=== PATIENT | male | born 1985 | race Two or more races ===

== ENCOUNTER 2020-06-25 16:53 | Emergency (ER) | payer MEDICAID, SELFPAY ==
[2020-06-25] VITALS (8 sets, daily range): BP systolic 68–143; BP diastolic 41–101; PULSE 56–121; RESP 12–16; TEMP 36.7–37.3; O2SAT 90–95; BMI 32.5
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
--- NOTE | 2020-06-25 18:14 | ECG_ITS ---
Test Reason : OVERDOSE Blood Pressure : / mmHG Vent. Rate : 060 BPM Atrial Rate : 060 BPM P-R Int : 168 ms QRS Dur : 090 ms QT Int : 466 ms P-R-T Axes : 037 046 030 degrees QTc Int : 466 ms Normal sinus rhythm Normal ECG When compared with ECG of 22-JAN-2020 08:19, QT has lengthened Referred By: Rocky Alberts Electronically Signed By:Jesse Sloan
[2020-06-25 19:34] LABS: COVID-19 Test Negative (Negative)
[2020-06-25 21:18] LABS: MANUAL DIFF FLAG NO
[2020-06-25 21:19] LABS: Basophils Percent Auto 0.1 % (0-2); Eosinophils Absolute Auto 0.1 X10*3/uL (0.0-0.4); Eosinophils Percent Auto 1.7 % (0-4); Hematocrit 36.3 % (42-52); Hemoglobin 12.1 g/dl (14.0-18.0); Imm Gran Abs Auto 0.06 X10*3/uL (0.00-0.03); Imm Gran Pct Auto 0.8 % (0.0-0.4); Lymphocytes Absolute Auto 1.9 X10*3/uL (1.2-4.9); Lymphocytes Percent Auto 25.1 % (20-40); Mean Corpuscular HGB Conc 33.3 g/dl (31.0-36.0); Mean Platelet Volume 9.4 fL (9.4-12.4); Monocytes Percent Auto 13.2 % (2-11); Neutrophils Absolute Auto 4.6 X10*3/uL (2.0-8.3); Neutrophils Percent Auto 59.1 % (45-73); Platelet Count 210 X10*3/uL (160-400); Red Blood Count 4.32 X10*6/uL (4.60-5.80); Red Cell Distribution Width 13.1 % (11.0-16.0); White Blood Count 7.7 X10*3/uL (4.8-10.8)
[2020-06-25 21:49] LABS: Ethanol < 10 mg/dL
[2020-06-25 21:59] LABS: Alanine Aminotransferase 76 U/L (0-40); Albumin Level 3.7 g/dL (3.5-5.0); Alkaline Phosphatase 106 U/L (39-117); Anion Gap 12 (12-20); Aspartate Amino Transferase 67 U/L (5-37); Bilirubin Total 0.4 mg/dL (0.0-1.0); Blood Urea Nitrogen 13 mg/dL (9-16); Calcium 8.7 mg/dL (8.4-10.2); Carbon Dioxide 28 mmol/L (22-29); Chloride 105 mmol/L (96-108); Creatinine Clr Calc Pharmacy 146.4; Estimated Glomerular Filt Rate > 60; Glucose Random 115 mg/dL (60-115); Potassium 3.8 mmol/L (3.3-5.1); Sodium 141 mmol/L (135-145); Total Protein 6.1 g/dL (6.5-8.0)
--- NOTE | 2020-06-25 22:03 | PC.NURSE ---
pt blood pressure low 68/41 at 2154. retaken on other arm 88/49 pt has no iv inplace. this rn attempted to place a iv and pt refused. dr alexis made aware and pt aggrees to eat and drink
[2020-06-25 22:10] LABS: Acetaminophen LAB < 1 mcg/mL (<30); Salicylate < 5.0 mg/dL (15-30)
--- NOTE | 2020-06-25 23:20 | PC.NURSE ---
manual bp corelates with auto bp cuff. 86/44 pt sleepy encouraged to drink more fluids. pt refusing iv line.
--- NOTE | 2020-06-25 23:35 | PC.NURSE ---
pt nasal narcan per verbal order by dr alexis, pt sleepy not drinking the water and refusing care and a iv. pt states he wants to . security at bedside, pt resistant to receiving narcan., bp after narcan. 121/72 hr 77
[2020-06-25] MEDS: Naloxone HCl Nasal 4 MG SPRAY NOSTRILALT (23:40)
--- NOTE | 2020-06-25 23:40 | PC.NURSE ---
unable to scan the nasal narcan
[2020-06-26] VITALS (9 sets, daily range): BP systolic 101–115; BP diastolic 49–59; PULSE 53–76; RESP 14–16; TEMP 36.4–36.7; O2SAT 95–98
--- NOTE | 2020-06-26 06:36 | PC.NURSE ---
pt has been sleeping since he came over from the pod. pt is in a recliner sitter present. skin pink warm and dry.
[2020-06-26 11:24] LABS: Amphetamine Screen Urine Not Detected (Not Detect); Barbiturates, Urine Not Detected (Not Detect); Benzodiazepines Screen Urine Not Detected (Not Detect); Cannabinoid Screen Urine POSITIVE (Not Detect); Cocaine Screen Urine POSITIVE (Not Detect); Opiate Screen Urine POSITIVE (Not Detect); Phencyclidine Screen Urine Not Detected (Not Detect)
--- NOTE | 2020-06-26 12:40 | PC.NURSE ---
pt seen by the care team (vaibhav) pt aware of plan of care.
--- NOTE | 2020-06-26 13:12 | MHC.CARE ---
T/w spoke w [facility] who stated no staff and could not give a time of arrival. T/w accepted case. T/w asked for clinical as pt has had 4 crisis evals by [facility] this past year and [facility] supervisor inventory merchandising only agreed to allow limited verbal info to t/w. Pt was seen by CARE as a result and [facility] Pt came in on a section 12 and is asking for admission due to SI and is agreeable to plan of bedsearch. Pt uncooperative and limited historian.
--- NOTE | 2020-06-26 16:13 | PC.NURSE ---
REPORT TAKEN FROM TIANNA OCHOA PT APPEARS TO BE SLEEPING IN STRETCHER, PRESENTLY INPT BED SEARCH FOR PSYCH. WCTM.
--- NOTE | 2020-06-26 20:08 | PC.NURSE ---
Pt resting on stretcher in NAD, breathing with ease on RA with equal chest rise and fall bilaterally. in home baby sitter present.
--- NOTE | 2020-06-26 22:42 | PC.NURSE ---
Pt calm cooperative, requested and given food. Pt agreeable to nursing care at this time. Pt reports persistent SI anyway that I can do it. I'm done. Sitter at bedside.
[2020-06-27 03:13] VITALS: PULSE 64; RESP 18; O2SAT 94
[2020-06-27 06:34] VITALS: BP 115/55; PULSE 57; RESP 18; TEMP 37; O2SAT 96
[2020-06-27] MEDS: Baclofen 10 MG TABLET PO (06:44)
--- NOTE | 2020-06-27 06:57 | PC.NURSE ---
received report from chelsea patterson
--- NOTE | 2020-06-27 07:23 | PC.NURSE ---
pt asking for his daily medications, methadone and gabapentin. called pharmacy because there was only one time dose of the methadone in [place], radu does have the verification sheet so will need only a doctor order to continue it. pt reports no improvement in his pain after the baclofen, pain at 7/10 in his back and legs. sitter in place
--- NOTE | 2020-06-27 07:32 | PC.NURSE ---
pt informed that he will be getting the methadone shortly this morning but unfortunately the rest of the medications where on hold due to not filling them in a couple of months pt will not answer if he is feeling suicidal at this time, getting a little irritated with this rn, says he that he will just go home
[2020-06-27 08:52] VITALS: BP 131/61; PULSE 60; TEMP 36.8; O2SAT 97
--- NOTE | 2020-06-27 11:38 | PC.NURSE ---
lying in stretcher in hallway near sink. blanket over head to block. light. p t verbalizes frustration with being in the hallway for 44 hrs. states he has a home and wants to go to it pt is aggitated and jumps from bed walking with steady gait to br. Pt offered po ativan for aggitation but doesn't respond to question. tobacco stemmer trying to find a room but ED is full.
--- NOTE | 2020-06-27 12:05 | PC.NURSE ---
increasing agitation when moved further down hallway, less trafficked area. security present and patient remaining calm enough to be redirected. offered a shower after he requested it but pt declined. CHANGE MANAGEMENT DIRECTOR Fabiano speaking with patient. pt now on telephone and remains calm. this rn to call [facility] for 24 hr routine re eval.
--- NOTE | 2020-06-27 12:12 | PC.NURSE ---
care team has been caring for patient. this rn calling them for re eval. Speaking with Carole. She will speak with patient when in ED next. Bedsearch remains in place.
[2020-06-27 14:00] VITALS: PULSE 18
--- NOTE | 2020-06-27 14:09 | PC.NURSE ---
report to So OCHOA in pod.
--- NOTE | 2020-06-27 14:19 | PC.NURSE ---
Pt resting in room, resp unlabored.
--- NOTE | 2020-06-27 15:31 | PC.NURSE ---
Pt resting, resp unlabored
[2020-06-27 16:00] VITALS: RESP 20
--- NOTE | 2020-06-27 17:21 | PC.NURSE ---
Pt awake briefly, when returning to bed pt stated 'leave me alone' when asked re: vitals then stated i want to go home.' Pt encouraged to speak to the CARE team but when asked stated that he did not want to talk to CARE team for [facility] at this time.
[2020-06-27 18:00] VITALS: RESP 18
--- NOTE | 2020-06-27 18:08 | PC.NURSE ---
Pt resting, resp unlabored
[2020-06-27] MEDS: Atorvastatin Calcium 10 MG TABLET PO (20:15)
[2020-06-27] MEDS: Mirtazapine 15 MG TABLET PO (20:15)
--- NOTE | 2020-06-27 20:46 | PC.NURSE ---
Patient in his room, lying and resting quietly, compliant with his HS PO medication, no distress reported, behavior isolative, will continue to monitor.
--- NOTE | 2020-06-28 07:17 | PC.NURSE ---
Report received from GABRIELA Reeves. Pt resting, resp unlabored.
[2020-06-28 08:49] VITALS: BP 119/73; PULSE 64; RESP 18; TEMP 36.6; O2SAT 95
--- NOTE | 2020-06-28 09:14 | PC.NURSE ---
Pt awake, denies SI, denies that he overdosed intentionally, requesting to go home. Care team notified, in to evaluate.
[2020-06-28] MEDS: DULoxetine HCl 60 MG CAPSULE.DR PO (09:40)
--- NOTE | 2020-06-28 15:44 | MHC.CARE ---
CARE team was requested to meet w pt who was requesting to meet with CARE team and asking to be discharged. CARE team met w pt and pt calmly discussed how he I want to go , and asked when can I leave ?. T/w interviewed pt about his change in plan as he requested outright to be admitted over the weekend and reported he was suicidal. Pt was irritable, and refusing questions. Pt stated today I have no memory of ever saying any of that . T/w explained that he reported this to t/w. Pt again denied making these statements and denied current suicidal thinking, plan or intent. When asked what pt felt has changed, pt replied I never felt that way to begin with . When asked what pts plan was he stated he wanted to go be with my mom and help her . Pt stated she doesn't have a lot of time left and I just want to spend time with her . Pt reported he did not want to use substances and did not feel he needed further tx or mental health resources. T/w offered to call pts mother. T/w spoke pts mother. Pt stated he also would like to stay with friends. T/w provided pt with a penitentiary list and how to contact crisis. Pts ED provider met with pt and t/w and reviewed his plan and he again reported he was safe to dc and denied feeling suicidal nor homicidal and that he did not feel needed further help nor would he willingly have an admission. Pt was calm and cooperative with all interventions this am as compared to initial evaluation days ago. Pt was pleasant and joked and agreed to seek crisis or return if needed.
== END 2020-06-28 10:12 | disposition home or self-care (01) ==
PROVIDERS: Emergency Provider Internal Medicine; PCP Nurse Practitioner Family
DX: T40.1X4A Poisoning by heroin, undetermined, initial encounter (principal); T40.5X4A Poisoning by cocaine, undetermined, initial encounter; T43.9 Poisoning by, adverse effect of and underdosing of unspecified psychotropic drug; Y92.9 Unspecified place or not applicable; F32.9 Major depressive disorder, single episode, unspecified; R45.851 Suicidal ideations; F11.20 Opioid dependence, uncomplicated; Z91.5 Personal history of self-harm; F43.10 Post-traumatic stress disorder, unspecified; F17.200 Nicotine dependence, unspecified, uncomplicated; Z20.822 Contact with and (suspected) exposure to COVID-19
CPT/HCPCS: 36415; 80053; 80143; 80179; 80307; 80320; 85025; 87635; 93005; 99285

== ENCOUNTER 2020-08-03 12:09 | Inpatient (IN) | payer MEDICAID, SELFPAY ==
[2020-08-03] VITALS (8 sets, daily range): BP systolic 108–137; BP diastolic 57–73; PULSE 62–97; RESP 13–18; TEMP 36.3–36.7; O2SAT 94–98; BMI 29.5
--- NOTE | 2020-08-03 | ECG_ITS ---
Test Reason : REPEAT ECG Blood Pressure : / mmHG Vent. Rate : 060 BPM Atrial Rate : 060 BPM P-R Int : 156 ms QRS Dur : 090 ms QT Int : 472 ms P-R-T Axes : 043 044 046 degrees QTc Int : 472 ms Normal sinus rhythm Normal ECG When compared with ECG of 03-AUG-2020 16:28, No significant change was found Referred By: Isak Armstrong Electronically Signed By:Jesse Sloan
--- NOTE | 2020-08-03 13:13 | ECG_ITS ---
Test Reason : MED CLEARLANCE Blood Pressure : / mmHG Vent. Rate : 074 BPM Atrial Rate : 074 BPM P-R Int : 160 ms QRS Dur : 092 ms QT Int : 434 ms P-R-T Axes : 033 027 040 degrees QTc Int : 481 ms Normal sinus rhythm Prolonged QT Abnormal ECG When compared with ECG of 25-JUN-2020 18:29, No significant change was found Referred By: Isak Armstrong Electronically Signed By:Jesse Sloan
--- NOTE | 2020-08-03 13:14 | PC.NURSE ---
Pt moved to ED 18 from Pod. pt alert, oriented, unsteady on feet, assisted to stretcher. pt telling this RN what medications he took and dozing off in middle of sentence. alarm security or surveillance monitor and Sat probe applied.
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
[2020-08-03] MEDS: Activated charcoaL 50 GM/240 ML ORAL.SUSP PO (13:39)
[2020-08-03] MEDS: 0.9 % Sodium Chloride 1,000 ML 999 ML IVCONT (13:39)
[2020-08-03 14:08] LABS: Appearance Urine CLEAR; Color Urine YELLOW; Glucose Urine UA NEG (NEG); Leukocyte Esterase Urine NEG (NEG); Nitrite Urine NEG (NEG); PH 5.5 (5.0-8.0); Specific Gravity - Urine 1.025 (1.005-1.025); Urine Blood NEG (NEG); Urine Ketones NEG (NEG); Urine Protein NEG (NEG-TRACE)
[2020-08-03 14:29] LABS: Amphetamine Screen Urine Not Detected (Not Detect); Barbiturates, Urine Not Detected (Not Detect); Benzodiazepines Screen Urine Not Detected (Not Detect); Cannabinoid Screen Urine Not Detected (Not Detect); Cocaine Screen Urine POSITIVE (Not Detect); Opiate Screen Urine POSITIVE (Not Detect); Phencyclidine Screen Urine Not Detected (Not Detect)
[2020-08-03 15:28] LABS: MANUAL DIFF FLAG NO
[2020-08-03 15:29] LABS: Basophils Percent Auto 0.2 % (0-2); Eosinophils Absolute Auto 0.1 X10*3/uL (0.0-0.4); Hematocrit 40.6 % (42-52); Hemoglobin 13.4 g/dl (14.0-18.0); Imm Gran Abs Auto 0.04 X10*3/uL (0.00-0.03); Imm Gran Pct Auto 0.4 % (0.0-0.4); Lymphocytes Absolute Auto 2.1 X10*3/uL (1.2-4.9); Lymphocytes Percent Auto 20.1 % (20-40); Mean Corpuscular Hemoglobin 27.7 pg (27.0-33.0); Mean Corpuscular Volume 83.9 fL (80-98); Mean Platelet Volume 9.5 fL (9.4-12.4); Monocytes Absolute Auto 1.1 X10*3/uL (0.1-1.2); Neutrophils Absolute Auto 6.9 X10*3/uL (2.0-8.3); Neutrophils Percent Auto 67.3 % (45-73); Platelet Count 216 X10*3/uL (160-400); Red Blood Count 4.84 X10*6/uL (4.60-5.80); Red Cell Distribution Width 13.5 % (11.0-16.0); White Blood Count 10.3 X10*3/uL (4.8-10.8)
[2020-08-03 15:53] LABS: Acetaminophen LAB < 1 mcg/mL (<30)
[2020-08-03 16:07] LABS: Ethanol < 10 mg/dL
[2020-08-03 16:10] LABS: Alanine Aminotransferase 44 U/L (0-40); Albumin Level 4.6 g/dL (3.5-5.0); Alkaline Phosphatase 122 U/L (39-117); Anion Gap 15 (12-20); Aspartate Amino Transferase 31 U/L (5-37); Bilirubin Direct 0.2 mg/dL (0.0-0.5); Bilirubin Total 0.5 mg/dL (0.0-1.0); Blood Urea Nitrogen 12 mg/dL (9-16); Calcium 9.4 mg/dL (8.4-10.2); Carbon Dioxide 23 mmol/L (22-29); Chloride 105 mmol/L (96-108); Creatinine Clr Calc Pharmacy 101.5; Estimated Glomerular Filt Rate > 60; Glucose Random 124 mg/dL (60-115); Magnesium 2.4 mg/dL (1.6-2.6); Potassium 3.9 mmol/L (3.3-5.1); Salicylate < 5.0 mg/dL (15-30); Sodium 139 mmol/L (135-145); Total Protein 7.8 g/dL (6.5-8.0)
--- NOTE | 2020-08-03 16:51 | PC.NURSE ---
per poison control: avoid all qtc prolonging medications and admit for montioring overnight. provider aware.
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
[2020-08-03] MEDS: 0.9 % Sodium Chloride 1,000 ML 100 ML IVCONT (20:19)
[2020-08-03 21:59] LABS: IDNOW Serial# 9DD0AD1C
[2020-08-03 22:00] LABS: COVID-19 Test Negative (Negative)
[2020-08-04 03:23] VITALS: BP 114/60; PULSE 58; RESP 14; O2SAT 97
[2020-08-04] MEDS: Acetaminophen 325 MG TABLET 650 MG PO (03:48)
[2020-08-04] MEDS: 0.9 % Sodium Chloride 1,000 ML 100 ML IVCONT ×2 (07:16→15:03)
[2020-08-04 07:24] VITALS: BP 106/55; PULSE 83; RESP 16; O2SAT 98
[2020-08-04 09:51] LABS: Tacrolimus Prograf <1.0 mcg/L
[2020-08-04 10:17] VITALS: BP 106/55; PULSE 67; RESP 16; O2SAT 98
[2020-08-04 12:00] VITALS: BP 111/60; PULSE 65; RESP 17; TEMP 36.7; O2SAT 98
--- NOTE | 2020-08-04 12:01 | HO.PM.IMPN ---
Subjective Subjective Date of Service: 08/05/20 Interval History: Still suicidal Review of Systems Gen: no fever Resp: no sob, no cough CV: no chest, no WATTS, no leg edema GI: No n/v, no abd pain Neuro: No confusion Psych: suicidal Physical Exam Vital Signs: Vital Signs: Last Vital Signs Temp 97.0 F 08/05/20 11:41 Pulse 63 08/05/20 11:41 Resp 18 08/05/20 11:41 BP 95/51 L 08/05/20 11:41 Pulse Ox 97 08/05/20 11:41 Body Mass Index 29.5 General: AO X 3, no acute distress Resp: CTA bilateral CVS: S1,S2,RRR GI: +BS, NT, no distention Skin: No rash Neuro: motor grossly intact Psych: suicidal Objective Data Current Medications Generic Name Dose Route Start Last Admin Trade Name Freq PRN Reason Stop Dose Admin Acetaminophen 650 mg 08/03/20 18:53 08/05/20 08:24 Acetaminophen 325 Mg Tablet PO 650 mg Q6H PRN Administration Pain, Mild (Pain Scale 1-3) Docusate Sodium 100 mg 08/04/20 21:00 08/05/20 08:18 Docusate Sodium 100 Mg Capsule PO 100 mg BID CORIE Administration Sodium Chloride 1,000 mls @ 100 mls/hr 08/03/20 19:00 08/05/20 11:14 Ns IVCONT 100 mls/hr .Q10H CORIE Administration Methadone HCl 130 mg 08/04/20 09:00 08/05/20 08:18 Methadone Hcl 1 Mg/0.1 Ml Oral.Conc PO 130 mg DAILY CORIE Administration Pharmacy Consult 1 each 08/03/20 16:58 Consult Rx Perform Med Rec MISCELLANE ONCE PRN Consult order Sodium Chloride 3 ml 08/04/20 00:00 08/05/20 10:34 0.9 % Sodium Chloride Flush 3 Ml Syringe IVFLUSH Not Given QSHIFT [facility] Labs CBC & Chem 7: 08/03/20 15:24 08/03/20 15:31 Assessment and Plan (1) Polysubstance overdose: Status: Acute (2) PTSD (post-traumatic stress disorder): Status: Acute Assessment and Plan: 35 y/o male with history of PTSD, depression, polysubstance abuse including IV heroin and cocaine, history of depression and prior suicide attempt with cutting, last admitted to [facility] in January 2020 here with suicide attempt by drug overdose ( gabapentin, tacrolimus, prednisone..still suicidal - Constant monitoring by Direct sitter, camera as accessory only -BHN/Crisis has not yet seen him Hold all other meds. DC IVF low risk for dvt, if in bed [facility] tomorrow heparin/lovenox, ambulate
--- NOTE | 2020-08-04 12:21 | HO.PM.IMPN ---
Subjective Subjective Date of Service: 08/04/20 Interval History: Suicidal. Review of Systems Gen: no fever Resp: no sob, no cough CV: no chest, no WATTS, no leg edema GI: No n/v, no abd pain Neuro: No confusion Psych: Suicidal Physical Exam Vital Signs: Vital Signs: Last Vital Signs Temp 98.0 F 08/03/20 23:37 Pulse 67 08/04/20 10:17 Resp 16 08/04/20 10:17 BP 106/55 L 08/04/20 10:17 Pulse Ox 98 08/04/20 10:17 Body Mass Index 29.5 General: AO X 3, no acute distress Resp: CTA bilateral CVS: S1,S2,RRR GI: +BS, NT, no distention Skin: No rash Neuro: motor grossly intact Psych: Suicidal thoughts Objective Data Current Medications Generic Name Dose Route Start Last Admin Trade Name Freq PRN Reason Stop Dose Admin Acetaminophen 650 mg 08/03/20 18:53 08/04/20 03:48 Acetaminophen 325 Mg Tablet PO 650 mg Q6H PRN Administration Pain, Mild (Pain Scale 1-3) Sodium Chloride 1,000 mls @ 100 mls/hr 08/03/20 19:00 08/04/20 07:16 Ns IVCONT 100 mls/hr .Q10H CORIE Administration Methadone HCl 130 mg 08/04/20 09:00 08/04/20 10:15 Methadone Hcl 1 Mg/0.1 Ml Oral.Conc PO 130 mg DAILY CORIE Administration Pharmacy Consult 1 each 08/03/20 16:58 Consult Rx Perform Med Rec MISCELLANE ONCE PRN Consult order Sodium Chloride 3 ml 08/04/20 00:00 08/04/20 07:16 0.9 % Sodium Chloride Flush 3 Ml Syringe IVFLUSH Not Given QSHIFT [facility] Labs CBC & Chem 7: 08/03/20 15:24 08/03/20 15:31 Assessment and Plan (1) Polysubstance overdose: Status: Acute (2) PTSD (post-traumatic stress disorder): Status: Acute Assessment and Plan: 35 y/o male with history of PTSD, depression, polysubstance abuse including IV heroin and cocaine, history of depression and prior suicide attempt with cutting, last admitted to in January 2020 here with suicide attempt by drug overdose ( gabapentin, tacrolimus, prednisone..still suicidal - Constant monitoring by Direct sitter, camera as accessory only -[facility] eval for psych placement, his medically ready to dc Hold all other meds. low risk for dvt, if in bed beyon tomorrow heparin/lovenox
[2020-08-04 15:01] VITALS: BP 112/57; PULSE 60; RESP 18; TEMP 36.3; O2SAT 97
--- NOTE | 2020-08-04 15:49 | MHC.CM.PN ---
Addendum entered by Tessa Parkinson 08/04/20 15:55: CM CALLED [facility] ([phone]), PTS NEW PCP IS GABRIELLE ROSAS Original Note: CM MET WITH PT WHO REPORTS HE STAYS WITH HIS GF MUCH OF THE TIME BUT HAS ALSO BEEN STAYING WITH HIS MOTHER SHE IS NOT WELL. PT REPORTS HE WAS SEEING GRAZYNA SOTO FOR PRIMARY CARE BUT SHE RETIRED AND HE IS UNSURE WHO HIS PROVIDER IS AT [facility]. PT DENIES THE USE OF DME OR SERVICES AND DECLINES TO COMPLETE A HCP. PT HAS BEEN SEEN BY CRISIS AND WILL TRANSFER TO INPATIENT PSYCHIATRIC TREATMENT ON M5
[2020-08-04 19:40] VITALS: BP 112/59; PULSE 66; RESP 18; TEMP 36.3; O2SAT 97
[2020-08-04] MEDS: Docusate Sodium 100 MG CAPSULE PO (20:14)
[2020-08-04] MEDS: hydrOXYzine HCL 25 MG TABLET PO (21:20)
[2020-08-05] VITALS (7 sets, daily range): BP systolic 95–149; BP diastolic 51–72; PULSE 54–93; RESP 14–20; TEMP 36.1–37.1; O2SAT 97–100
[2020-08-05] MEDS: 0.9 % Sodium Chloride 1,000 ML 100 ML IVCONT ×2 (00:02→11:14)
[2020-08-05] MEDS: Docusate Sodium 100 MG CAPSULE PO (08:18)
[2020-08-05] MEDS: Acetaminophen 325 MG TABLET 650 MG PO (08:24)
--- NOTE | 2020-08-05 12:05 | P.PNIM_ITS ---
Subjective Subjective Date of Service: 08/05/20 Interval History: Still suicidal, doesn't wan to live Review of Systems Gen: no fever Resp: no sob, no cough CV: no chest, no WATTS, no leg edema GI: No n/v, no abd pain Neuro: No confusion Psych: suicidal Physical Exam Vital Signs: Vital Signs: Last Vital Signs Temp 97.0 F 08/05/20 11:41 Pulse 63 08/05/20 11:41 Resp 18 08/05/20 11:41 BP 95/51 L 08/05/20 11:41 Pulse Ox 97 08/05/20 11:41 Body Mass Index 29.5 General: AO X 3, no acute distress Resp: CTA bilateral CVS: S1,S2,RRR GI: +BS, NT, no distention Skin: No rash Neuro: motor grossly intact Psych: still suicidal Objective Data Current Medications Generic Name Dose Route Start Last Admin Trade Name Freq PRN Reason Stop Dose Admin Acetaminophen 650 mg 08/03/20 18:53 08/05/20 08:24 Acetaminophen 325 Mg Tablet PO 650 mg Q6H PRN Administration Pain, Mild (Pain Scale 1-3) Docusate Sodium 100 mg 08/04/20 21:00 08/05/20 08:18 Docusate Sodium 100 Mg Capsule PO 100 mg BID CORIE Administration Methadone HCl 130 mg 08/04/20 09:00 08/05/20 08:18 Methadone Hcl 1 Mg/0.1 Ml Oral.Conc PO 130 mg DAILY [facility] Administration Pharmacy Consult 1 each 08/03/20 16:58 Consult Rx Perform Med Rec MISCELLANE ONCE PRN Consult order Sodium Chloride 3 ml 08/04/20 00:00 08/05/20 10:34 0.9 % Sodium Chloride Flush 3 Ml Syringe IVFLUSH Not Given QSHIFT [facility] Labs CBC & Chem 7: 08/03/20 15:24 08/03/20 15:31 Assessment and Plan (1) Polysubstance overdose: Status: Acute (2) PTSD (post-traumatic stress disorder): Status: Acute Assessment and Plan: 35 y/o male with history of PTSD, depression, polysubstance abuse including IV heroin and cocaine, history of depression and prior suicide attempt with cutting, last admitted to in January 2020 here with suicide attempt by drug overdose ( gabapentin, tacrolimus, prednisone..still suicidal - Constant monitoring by Direct sitter, camera as accessory only -N/Cinthya has not yet seen him, hopefully today and subsequently dc Hold all other meds. low risk for dvt, if in bed beyon tomorrow heparin/lovenox, ambulate
--- NOTE | 2020-08-05 12:45 | MHC.CM.PN ---
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
[2020-08-05] MEDS: 0.9 % Sodium Chloride Flush 3 ML SYRINGE IVFLUSH (21:37)
[2020-08-06] VITALS (7 sets, daily range): BP systolic 103–145; BP diastolic 57–79; PULSE 58–69; RESP 18–20; TEMP 36.2–36.5; O2SAT 94–96
[2020-08-06] MEDS: 0.9 % Sodium Chloride Flush 3 ML SYRINGE IVFLUSH ×3 (08:06→20:39)
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
[2020-08-06] MEDS: Gabapentin 400 MG CAPSULE PO ×3 (10:16→20:35)
--- NOTE | 2020-08-06 13:48 | MHC.CM.PN ---
CALL TO [facility] ([phone]) PATIENT IS AN ACTIVE BED SEARCH. A STAFF IS REPORTEDLY TO ARRIVE FOR A RE-EVAL TODAY. LIUDMILA TO M-5. NO BEDS AVAILABLE THIS WEEKEND, WITH A POSSIBLE DC ON SATURDAY. CASE MANAGEMENT CONTINUING TO FOLLOW.
[2020-08-06] MEDS: Atorvastatin Calcium 10 MG TABLET PO (20:35)
[2020-08-06] MEDS: cloNIDine HCL 0.1 MG TABLET PO (20:35)
[2020-08-06] MEDS: Docusate Sodium 100 MG CAPSULE PO (20:35)
[2020-08-06] MEDS: Baclofen 10 MG TABLET PO (20:35)
[2020-08-07 03:45] VITALS: BP 132/71; PULSE 69; RESP 20; TEMP 36.6; O2SAT 96
[2020-08-07 08:00] VITALS: BP 107/65; PULSE 80; O2SAT 96
[2020-08-07] MEDS: Docusate Sodium 100 MG CAPSULE PO ×2 (08:31→20:56)
[2020-08-07] MEDS: 0.9 % Sodium Chloride Flush 3 ML SYRINGE IVFLUSH ×3 (08:31→22:55)
[2020-08-07] MEDS: DULoxetine HCl 30 MG CAPSULE.DR PO (08:31)
[2020-08-07] MEDS: Gabapentin 400 MG CAPSULE PO ×3 (08:31→20:56)
[2020-08-07] MEDS: Nicotine Polacrilex 2 MG GUM BUCCAL ×4 (09:42→23:46)
--- NOTE | 2020-08-07 10:42 | HO.PM.IMPN ---
Subjective Subjective Date of Service: 08/07/20 Interval History: Still suicidal, Review of Systems Gen: no fever Resp: no sob, no cough CV: no chest, no WATTS, no leg edema GI: No n/v, no abd pain Neuro: No confusion Psych: suicidal Physical Exam Vital Signs: Vital Signs: Last Vital Signs Temp 97.8 F 08/07/20 03:45 Pulse 80 08/07/20 08:00 Resp 20 08/07/20 03:45 BP 107/65 08/07/20 08:00 Pulse Ox 96 08/07/20 08:00 Body Mass Index 29.5 Const: Other: Constitutional Awake and Alert, No apparent distress Neck Supple, No lymphadenopathy Cardiovascular RRR, No M/R/G, S1 S2, No S3 S4, No pedal edema Respiratory Lungs clear, No respiratory distress Gastrointestinal Non tender, Non-distended Skin No rash Neurological Alert & oriented x3 Psychological Appropriate affect, poor judegment Objective Data Current Medications Generic Name Dose Route Start Last Admin Trade Name Freq PRN Reason Stop Dose Admin Acetaminophen 650 mg 08/03/20 18:53 08/05/20 08:24 Acetaminophen 325 Mg Tablet PO 650 mg Q6H PRN Administration Pain, Mild (Pain Scale 1-3) Atorvastatin Calcium 10 mg 08/06/20 21:00 08/06/20 20:35 Atorvastatin Calcium 10 Mg Tablet PO 10 mg BEDTIME CORIE Administration Baclofen 10 mg 08/06/20 09:03 08/06/20 20:35 Baclofen 10 Mg Tablet PO 10 mg BID PRN Administration Back Pain Bisacodyl 5 mg 08/06/20 09:03 Bisacodyl 5 Mg Tablet. PO DAILY PRN Constipation Clonidine HCl 0.1 mg 08/06/20 09:03 08/06/20 20:35 Clonidine Hcl 0.1 Mg Tablet PO 0.1 mg BID PRN Administration Agitation Protocol Docusate Sodium 100 mg 08/04/20 21:00 08/07/20 08:31 Docusate Sodium 100 Mg Capsule PO 100 mg BID CORIE Administration Duloxetine HCl 30 mg 08/07/20 09:00 08/07/20 08:31 Duloxetine Hcl 30 Mg Capsule. PO 30 mg DAILY CORIE Administration Gabapentin 400 mg 08/06/20 09:15 08/07/20 08:31 Gabapentin 400 Mg Capsule PO 400 mg TID CORIE Administration Hydroxyzine HCl 25 mg 08/06/20 09:03 Hydroxyzine Hcl 25 Mg Tablet PO BID PRN Anxiety Methadone HCl 130 mg 08/04/20 09:00 08/07/20 08:31 Methadone Hcl 1 Mg/0.1 Ml Oral.Conc PO 130 mg DAILY CORIE Administration Nicotine Polacrilex 2 mg 08/06/20 20:51 08/07/20 09:42 Nicotine Polacrilex 2 Mg Gum BUCCAL 2 mg Q2H PRN Administration Nicotine Cravings Pharmacy Consult 1 each 08/03/20 16:58 Consult Rx Perform Med Rec MISCELLANE ONCE PRN Consult order Sodium Chloride 3 ml 08/04/20 00:00 08/07/20 08:31 0.9 % Sodium Chloride Flush 3 Ml Syringe IVFLUSH 3 ml QSHIFT CORIE Administration Labs CBC & Chem 7: 08/03/20 15:24 08/03/20 15:31 Assessment and Plan (1) Polysubstance overdose: Status: Acute (2) PTSD (post-traumatic stress disorder): Status: Acute Assessment and Plan: 35 y/o male with history of PTSD, depression, polysubstance abuse including IV heroin and cocaine, history of depression and prior suicide attempt with cutting, last admitted to in January 2020 here with suicide attempt by drug overdose ( gabapentin, tacrolimus, prednisone..still suicidal - Constant monitoring by Direct sitter, camera as accessory only -BHN/Crisis has not yet seen him, hopefully today and subsequently dc -continue usual meds, - low risk for dvt, he is up and ambulating, N is doing bed search
[2020-08-07 12:00] VITALS: BP 102/55; PULSE 66; O2SAT 95
[2020-08-07 15:58] VITALS: BP 110/63; PULSE 67; RESP 20; TEMP 36.1; O2SAT 96
[2020-08-07 20:00] VITALS: BP 104/61; PULSE 63; RESP 20; TEMP 36.3; O2SAT 96
[2020-08-07] MEDS: Atorvastatin Calcium 10 MG TABLET PO (20:56)
[2020-08-07 23:16] VITALS: BP 102/48; PULSE 65; RESP 16; O2SAT 96
[2020-08-08 04:00] VITALS: BP 106/66; PULSE 63; RESP 16; O2SAT 98
[2020-08-08 07:44] VITALS: BP 104/57; PULSE 62; RESP 16; TEMP 36.3; O2SAT 97
[2020-08-08] MEDS: DULoxetine HCl 30 MG CAPSULE.DR PO (08:49)
[2020-08-08] MEDS: Nicotine Polacrilex 2 MG GUM BUCCAL ×2 (08:49→11:27)
[2020-08-08] MEDS: Gabapentin 400 MG CAPSULE PO ×2 (08:49→14:51)
[2020-08-08] MEDS: Docusate Sodium 100 MG CAPSULE PO (08:49)
[2020-08-08] MEDS: 0.9 % Sodium Chloride Flush 3 ML SYRINGE IVFLUSH (08:50)
[2020-08-08] MEDS: Baclofen 10 MG TABLET PO (08:54)
--- NOTE | 2020-08-08 09:15 | HO.PM.IMPN ---
Subjective Subjective Date of Service: 08/08/20 Interval History: Still suicidal, Review of Systems Gen: no fever Resp: no sob, no cough CV: no chest, no WATTS, no leg edema GI: No n/v, no abd pain Neuro: No confusion Psych: suicidal Physical Exam Vital Signs: Vital Signs: Last Vital Signs Temp 97.3 F 08/08/20 07:44 Pulse 62 08/08/20 07:44 Resp 16 08/08/20 07:44 BP 104/57 L 08/08/20 07:44 Pulse Ox 97 08/08/20 07:44 Body Mass Index 29.5 Const: Other: Constitutional Awake and Alert, No apparent distress Neck Supple, No lymphadenopathy Cardiovascular RRR, No M/R/G, S1 S2, No S3 S4, No pedal edema Respiratory Lungs clear, No respiratory distress Gastrointestinal Non tender, Non-distended Skin No rash Neurological Alert & oriented x3 Psychological Appropriate affect, poor judegment Objective Data Current Medications Generic Name Dose Route Start Last Admin Trade Name Freq PRN Reason Stop Dose Admin Acetaminophen 650 mg 08/03/20 18:53 08/05/20 08:24 Acetaminophen 325 Mg Tablet PO 650 mg Q6H PRN Administration Pain, Mild (Pain Scale 1-3) Atorvastatin Calcium 10 mg 08/06/20 21:00 08/07/20 20:56 Atorvastatin Calcium 10 Mg Tablet PO 10 mg BEDTIME CORIE Administration Baclofen 10 mg 08/06/20 09:03 08/08/20 08:54 Baclofen 10 Mg Tablet PO 10 mg BID PRN Administration Back Pain Bisacodyl 5 mg 08/06/20 09:03 Bisacodyl 5 Mg Tablet. PO DAILY PRN Constipation Clonidine HCl 0.1 mg 08/06/20 09:03 08/06/20 20:35 Clonidine Hcl 0.1 Mg Tablet PO 0.1 mg BID PRN Administration Agitation Protocol Docusate Sodium 100 mg 08/04/20 21:00 08/08/20 08:49 Docusate Sodium 100 Mg Capsule PO 100 mg BID CORIE Administration Duloxetine HCl 30 mg 08/07/20 09:00 08/08/20 08:49 Duloxetine Hcl 30 Mg Capsule. PO 30 mg DAILY CORIE Administration Gabapentin 400 mg 08/06/20 09:15 08/08/20 08:49 Gabapentin 400 Mg Capsule PO 400 mg TID CORIE Administration Hydroxyzine HCl 25 mg 08/06/20 09:03 Hydroxyzine Hcl 25 Mg Tablet PO BID PRN Anxiety Methadone HCl 130 mg 08/04/20 09:00 08/08/20 08:49 Methadone Hcl 1 Mg/0.1 Ml Oral.Conc PO 130 mg DAILY CORIE Administration Nicotine Polacrilex 2 mg 08/06/20 20:51 08/08/20 08:49 Nicotine Polacrilex 2 Mg Gum BUCCAL 2 mg Q2H PRN Administration Nicotine Cravings Pharmacy Consult 1 each 08/03/20 16:58 Consult Rx Perform Med Rec MISCELLANE ONCE PRN Consult order Sodium Chloride 3 ml 08/04/20 00:00 08/08/20 08:50 0.9 % Sodium Chloride Flush 3 Ml Syringe IVFLUSH 3 ml QSHIFT CORIE Administration Labs CBC & Chem 7: 08/03/20 15:24 08/03/20 15:31 Assessment and Plan (1) Polysubstance overdose: Status: Acute (2) PTSD (post-traumatic stress disorder): Status: Acute Assessment and Plan: 35 y/o male with history of PTSD, depression, polysubstance abuse including IV heroin and cocaine, history of depression and prior suicide attempt with cutting, last admitted to in January 2020 here with suicide attempt by drug overdose ( gabapentin, tacrolimus, prednisone..still suicidal - Constant monitoring by Direct sitter, camera as accessory only -N/Crisis has not yet seen him, hopefully today and subsequently dc -continue usual meds, Opioid dependece--Methaadone PTSD--Duloxetine, HLD--Lipitor 10 low risk for dvt, he is up and ambulating, [facility] is doing bed search, n to reassess
[2020-08-08 10:55] VITALS: BP 140/97; PULSE 79; RESP 20; O2SAT 97
[2020-08-08] MEDS: Acetaminophen 325 MG TABLET 650 MG PO (11:29)
--- NOTE | 2020-08-08 16:28 | MHC.CM.NN ---
NURSE Cre chronic manager note late entry electronic medical record reviewed along with case discussed with staff nruse ,and on mul;whitle discipalinry rounds. patient to have bhn reassement today ,this was complteted and patient was accepted and transferred to [facility] inpatient psych unit
== END 2020-08-08 14:55 | DRG 812 ==
LOC: HO.ED 17:05 → HO.EDOVER 20:11 → HO.S3 08-04 11:00
PROVIDERS: Physician Assistant; Admitting Provider Internal Medicine; Emergency Provider Emergency Medicine; PCP Nurse Practitioner Family; Visit Provider Internal Medicine
DX: T50.912A Poisoning by multiple unspecified drugs, medicaments and biological substances, intentional self-harm, initial encounter (principal); R45.851 Suicidal ideations; Y92.009 Unspecified place in unspecified non-institutional (private) residence as the place of occurrence of the external cause; F11.20 Opioid dependence, uncomplicated; F43.10 Post-traumatic stress disorder, unspecified; F14.10 Cocaine abuse, uncomplicated; Z20.822 Contact with and (suspected) exposure to COVID-19; Z91.5 Personal history of self-harm; Z79.899 Other long term (current) drug therapy
CPT/HCPCS: 36415; 80048; 80076; 80143; 80179; 80197; 80307; 80320; 81003; 83735; 85025; 87635; 93005; 99285; 99291

== ENCOUNTER 2020-08-08 15:02 | Inpatient (IN) | payer OTHER, MEDICAID, SELFPAY ==
[2020-08-08 17:00] VITALS: BP 123/68; PULSE 66; TEMP 36.9
[2020-08-08 20:07] VITALS: BMI 34.0
[2020-08-08] MEDS: Atorvastatin Calcium 10 MG TABLET PO (22:40)
[2020-08-08] MEDS: Gabapentin 400 MG CAPSULE PO (22:40)
[2020-08-08] MEDS: Docusate Sodium 100 MG CAPSULE PO (22:40)
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
[2020-08-09 06:20] VITALS: BP 104/58; PULSE 61; RESP 18; TEMP 36.1; O2SAT 95
[2020-08-09] MEDS: DULoxetine HCl 30 MG CAPSULE.DR PO (09:03)
[2020-08-09] MEDS: Docusate Sodium 100 MG CAPSULE PO ×2 (09:03→22:01)
[2020-08-09] MEDS: Gabapentin 400 MG CAPSULE PO ×3 (09:03→22:00)
[2020-08-09] MEDS: Nicotine Polacrilex 2 MG GUM BUCCAL (11:06)
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
[2020-08-09 18:00] VITALS: BP 118/58; PULSE 70; TEMP 36.4
[2020-08-09] MEDS: Atorvastatin Calcium 10 MG TABLET PO (22:01)
[2020-08-10] MEDS: Nicotine Polacrilex 2 MG GUM BUCCAL ×4 (04:22→23:15)
[2020-08-10 06:04] VITALS: BP 124/58; PULSE 69; RESP 16; TEMP 36.2; O2SAT 98
[2020-08-10] MEDS: DULoxetine HCl 30 MG CAPSULE.DR PO (08:13)
[2020-08-10] MEDS: Docusate Sodium 100 MG CAPSULE PO ×2 (08:13→21:19)
[2020-08-10] MEDS: Gabapentin 400 MG CAPSULE PO ×3 (08:13→21:19)
[2020-08-10] MEDS: hydrOXYzine HCL 25 MG TABLET PO (11:13)
[2020-08-10 11:14] VITALS: BP 122/64; PULSE 78
[2020-08-10] MEDS: cloNIDine HCL 0.1 MG TABLET PO (11:14)
--- NOTE | 2020-08-10 14:04 | HO.PSYCHPN ---
Subjective Subjective Date of Service: 08/11/20 Reason For Visit: polysubstance overdose Subjective Notes: Conditional Voluntary Interim History: Pt appears with brighter affect. He reports he has had multiple romantic relationships in his life and feels proud about it. He reports his ex GF broke up with him because he did not like to argue- minimizes his use of substances and its effect on relationship. He reports he plans to return to his mother's house and wants to find job. He denied suicidal ideation today. He was observed in unit with bright affect, socializing with select peers. Medication Compliance: Yes Side effects from medications: No Attending Groups: No Review of Systems Cardiovascular: Denies chest pain and Denies dyspnea on exertion Respiratory: Denies dyspnea on exertion Gastrointestinal: Denies constipation and Denies diarrhea Musculoskeletal: Reports back pain Mental Status Exam Mental Status Exam Narrative: Appearance: He appears well groomed, with good hygiene and in no distress. Behavior: he is calm, superficially cooperative. At times he is difficult to engage in conversation. Speech: clear, he is answering questions appropriately, speaking in full sentences, regular rate, soft volume, spontaneous Affect: blunted mood: depressed Thought process: inear Thought content: displays no sign of psychosis. He appears to be pessimistic. And he expresses feeling hopeless, and overwhelmed. Delusions: none Perceptual disturbances: He denies visual, auditory and tactile hallucinations at this time. Insight/judgment: fair x 2. Memory/cognition:He is alert to person place, time and situation. Hi short term, and long-term memory appeared to be grossly intact, based off of bedside questioning. SI: He currently states he is still suicidal and depressed but denies having a specific plan in place. He does however state that the second he is discharged he will figure it out and he will kill himself. HI: He denies homicidal ideation. Diagnostics Vital Signs (24Hr): Vital Signs - 24 hr 08/11/20 06:00 08/11/20 12:23 Pulse Rate 88 Respiratory Rate 16 Blood Pressure 143/75 H Body Mass Index 34.0 Medications Medications Current Medications Generic Name Dose Route Start Last Admin Trade Name Freq PRN Reason Stop Dose Admin Acetaminophen 650 mg 08/08/20 21:58 Acetaminophen 325 Mg Tablet PO Q6H PRN Headache/Pain Mild Scale (1-3) Acetaminophen 650 mg 08/08/20 21:58 Acetaminophen 325 Mg Tablet PO Q6H PRN Pain, Mild (Pain Scale 1-3) Al Hydroxide/Mg Hydroxide 30 ml 08/08/20 21:58 Magnesium Hydrox/Alum Hydrox 30 Ml Oral.Susp PO Q6H PRN Heartburn/Nausea Atorvastatin Calcium 10 mg 08/09/20 21:00 08/10/20 21:20 Atorvastatin Calcium 10 Mg Tablet PO 10 mg BEDTIME [facility] Administration Baclofen 10 mg 08/08/20 21:58 08/11/20 12:23 Baclofen 10 Mg Tablet PO 10 mg BID PRN Administration Back Pain Bisacodyl 5 mg 08/08/20 21:58 Bisacodyl 5 Mg Tablet. PO DAILY PRN Constipation Clonidine HCl 0.1 mg 08/08/20 21:58 08/11/20 12:23 Clonidine Hcl 0.1 Mg Tablet PO 0.1 mg BID PRN Administration Agitation Protocol Docusate Sodium 100 mg 08/09/20 09:00 08/11/20 08:51 Docusate Sodium 100 Mg Capsule PO 100 mg BID [facility] Administration Duloxetine HCl 60 mg 08/12/20 09:00 Duloxetine Hcl 60 Mg Capsule. PO DAILY [facility] Gabapentin 400 mg 08/09/20 09:00 08/11/20 08:51 Gabapentin 400 Mg Capsule PO 400 mg TID [facility] Administration Hydroxyzine HCl 25 mg 08/08/20 21:58 08/11/20 12:23 Hydroxyzine Hcl 25 Mg Tablet PO 25 mg BID PRN Administration Anxiety Hydroxyzine HCl 25 mg 08/08/20 21:58 Hydroxyzine Hcl 25 Mg Tablet PO BEDTIME PRN Anxiety Magnesium Hydroxide 30 ml 08/08/20 21:58 Milk Of Magnesia 30 Ml Oral.Susp PO DAILY PRN Constipation Methadone HCl 130 mg 08/09/20 09:00 08/11/20 08:51 Methadone Hcl 1 Mg/0.1 Ml Oral.Conc PO 130 mg DAILY [facility] Administration Mirtazapine 15 mg 08/11/20 21:00 Mirtazapine 15 Mg Tablet PO BEDTIME [facility] Naproxen 500 mg 08/11/20 21:00 Naproxen 500 Mg Tablet PO DAILY@0900,2100 [facility] Nicotine Polacrilex 2 mg 08/08/20 21:58 08/11/20 12:23 Nicotine Polacrilex 2 Mg Gum BUCCAL 2 mg Q2H PRN Administration Nicotine Cravings Nicotine Polacrilex 2 mg 08/09/20 10:54 Nicotine Polacrilex 2 Mg Gum BUCCAL Q2H PRN Nicotine Cravings Quetiapine Fumarate 100 mg 08/11/20 21:00 Quetiapine Fumarate 100 Mg Tablet PO BEDTIME [facility] Allergies Allergies Allergy/AdvReac Type Severity Reaction Status Date / Time shellfish derived Allergy Severe ANAPHAYLAXI Verified 08/04/20 22:58 [SHELLFISH DERIVED] A Assessment & Plan Assessment & Plan (1) MDD (major depressive disorder), recurrent episode, severe: Status: Acute Code(s): F33.2 - Major depressive disorder, recurrent severe without psychotic features Assessment and Plan: Pt reports he has been on cymbalta, partial effect. He agrees to titrate back to 90 mg po daily. (2) Cocaine use disorder, moderate, dependence: Status: Acute Code(s): F14.20 - Cocaine dependence, uncomplicated Assessment and Plan: encourage aftercare treatment- pt denies (3) Opioid use disorder, mild, in early remission, on maintenance therapy: Status: Acute Code(s): F11.11 - Opioid abuse, in remission Greater than 50% of the session was spent on counseling and/or coordination of care Reason for contiued inpatient stay Substantial Risk for: harm to self
[2020-08-10] MEDS: Atorvastatin Calcium 10 MG TABLET PO (21:20)
[2020-08-11 06:00] VITALS: RESP 16
[2020-08-11 07:00] VITALS: BMI 33.9
[2020-08-11] MEDS: Docusate Sodium 100 MG CAPSULE PO ×2 (08:51→20:08)
[2020-08-11] MEDS: DULoxetine HCl 30 MG CAPSULE.DR PO ×2 (08:51→13:33)
[2020-08-11] MEDS: Gabapentin 400 MG CAPSULE PO ×3 (08:51→20:08)
[2020-08-11] MEDS: Nicotine Polacrilex 2 MG GUM BUCCAL ×2 (09:56→12:23)
[2020-08-11 12:23] VITALS: BP 143/75; PULSE 88
[2020-08-11] MEDS: cloNIDine HCL 0.1 MG TABLET PO (12:23)
[2020-08-11] MEDS: hydrOXYzine HCL 25 MG TABLET PO (12:23)
[2020-08-11] MEDS: Baclofen 10 MG TABLET PO (12:23)
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
[2020-08-11 18:00] VITALS: BP 110/57; PULSE 56; TEMP 36.5
[2020-08-11 19:45] VITALS: BP 136/87; PULSE 98
[2020-08-11 20:07] VITALS: BP 125/70; PULSE 70
[2020-08-11] MEDS: Prazosin HCL 1 MG CAPSULE 2 MG PO (20:07)
[2020-08-11] MEDS: Atorvastatin Calcium 10 MG TABLET PO (20:07)
[2020-08-11] MEDS: Mirtazapine 15 MG TABLET PO (20:08)
[2020-08-11] MEDS: QUEtiapine Fumarate 100 MG TABLET PO (20:08)
[2020-08-12 06:00] VITALS: RESP 16
[2020-08-12] MEDS: Docusate Sodium 100 MG CAPSULE PO ×2 (08:46→20:56)
[2020-08-12] MEDS: Gabapentin 400 MG CAPSULE PO ×3 (08:46→20:56)
[2020-08-12] MEDS: DULoxetine HCl 60 MG CAPSULE.DR PO (08:46)
[2020-08-12] MEDS: NaPROXEN 500 MG TABLET PO ×2 (09:13→21:44)
[2020-08-12 09:16] VITALS: BP 127/67; PULSE 93; RESP 16; TEMP 36.1; O2SAT 98
[2020-08-12] MEDS: Nicotine Polacrilex 2 MG GUM BUCCAL ×3 (09:16→19:50)
--- NOTE | 2020-08-12 13:07 | HO.PSYCHPN ---
Subjective Subjective Date of Service: 08/12/20 Reason For Visit: polysubstance overdose Interim History: Pt with slightly brighter affect today. He reports he was waking up few times last night but able to go back to sleep. He reports he continues to experience depressed mood, worried about multiple stressors but confident that things will work out for him. He reports intermittent suicidal ideation but denies any plan or intent. He has been intermittently visible in unit, no attending groups but encouraged to do so. No behavioral concerns. Review of Systems Cardiovascular: Denies chest pain and Denies dyspnea on exertion Respiratory: Denies dyspnea on exertion Gastrointestinal: Denies constipation and Denies diarrhea Musculoskeletal: Reports back pain Mental Status Exam Mental Status Exam Narrative: Appearance: He appears well groomed, with good hygiene and in no distress. Behavior: he is calm, superficially cooperative. At times he is difficult to engage in conversation. Speech: clear, he is answering questions appropriately, speaking in full sentences, regular rate, soft volume, spontaneous Affect: blunted mood: depressed Thought process: inear Thought content: displays no sign of psychosis. He appears to be pessimistic. And he expresses feeling hopeless, and overwhelmed. Delusions: none Perceptual disturbances: He denies visual, auditory and tactile hallucinations at this time. Insight/judgment: fair x 2. Memory/cognition:He is alert to person place, time and situation. Hi short term, and long-term memory appeared to be grossly intact, based off of bedside questioning. SI: He currently states he is still suicidal and depressed but denies having a specific plan in place. He does however state that the second he is discharged he will figure it out and he will kill himself. HI: He denies homicidal ideation. Diagnostics Vital Signs (24Hr): Vital Signs - 24 hr 08/11/20 18:00 08/11/20 19:45 08/11/20 20:07 Temperature 97.7 F Pulse Rate 56 98 70 Respiratory Rate Blood Pressure 110/57 L 136/87 125/70 Pulse Oximetry 08/12/20 06:00 08/12/20 09:16 Temperature 96.9 F Pulse Rate 93 Respiratory Rate 16 16 Blood Pressure 127/67 Pulse Oximetry 98 Body Mass Index 33.9 Medications Medications Current Medications Generic Name Dose Route Start Last Admin Trade Name Freq PRN Reason Stop Dose Admin Acetaminophen 650 mg 08/08/20 21:58 Acetaminophen 325 Mg Tablet PO Q6H PRN Headache/Pain Mild Scale (1-3) Acetaminophen 650 mg 08/08/20 21:58 Acetaminophen 325 Mg Tablet PO Q6H PRN Pain, Mild (Pain Scale 1-3) Al Hydroxide/Mg Hydroxide 30 ml 08/08/20 21:58 Magnesium Hydrox/Alum Hydrox 30 Ml Oral.Susp PO Q6H PRN Heartburn/Nausea Atorvastatin Calcium 10 mg 08/09/20 21:00 08/11/20 20:07 Atorvastatin Calcium 10 Mg Tablet PO 10 mg BEDTIME [facility] Administration Baclofen 10 mg 08/08/20 21:58 08/11/20 12:23 Baclofen 10 Mg Tablet PO 10 mg BID PRN Administration Back Pain Bisacodyl 5 mg 08/08/20 21:58 Bisacodyl 5 Mg Tablet. PO DAILY PRN Constipation Clonidine HCl 0.1 mg 08/08/20 21:58 08/11/20 12:23 Clonidine Hcl 0.1 Mg Tablet PO 0.1 mg BID PRN Administration Agitation Protocol Docusate Sodium 100 mg 08/09/20 09:00 08/12/20 08:46 Docusate Sodium 100 Mg Capsule PO 100 mg BID [facility] Administration Duloxetine HCl 60 mg 08/12/20 09:00 08/12/20 08:46 Duloxetine Hcl 60 Mg Capsule. PO 60 mg DAILY [facility] Administration Gabapentin 400 mg 08/09/20 09:00 08/12/20 08:46 Gabapentin 400 Mg Capsule PO 400 mg TID [facility] Administration Hydroxyzine HCl 25 mg 08/08/20 21:58 08/11/20 12:23 Hydroxyzine Hcl 25 Mg Tablet PO 25 mg BID PRN Administration Anxiety Hydroxyzine HCl 25 mg 08/08/20 21:58 Hydroxyzine Hcl 25 Mg Tablet PO BEDTIME PRN Anxiety Magnesium Hydroxide 30 ml 08/08/20 21:58 Milk Of Magnesia 30 Ml Oral.Susp PO DAILY PRN Constipation Methadone HCl 130 mg 08/09/20 09:00 08/12/20 08:46 Methadone Hcl 1 Mg/0.1 Ml Oral.Conc PO 130 mg DAILY [facility] Administration Mirtazapine 15 mg 08/11/20 21:00 08/11/20 20:08 Mirtazapine 15 Mg Tablet PO 15 mg BEDTIME [facility] Administration Naproxen 500 mg 08/11/20 21:00 08/12/20 09:13 Naproxen 500 Mg Tablet PO 500 mg DAILY@0900,2100 [facility] Administration Nicotine Polacrilex 2 mg 08/08/20 21:58 08/12/20 09:16 Nicotine Polacrilex 2 Mg Gum BUCCAL 2 mg Q2H PRN Administration Nicotine Cravings Nicotine Polacrilex 2 mg 08/09/20 10:54 Nicotine Polacrilex 2 Mg Gum BUCCAL Q2H PRN Nicotine Cravings Prazosin HCl 2 mg 08/11/20 21:00 08/11/20 20:07 Prazosin Hcl 1 Mg Capsule PO 2 mg BEDTIME [facility] Administration Protocol Quetiapine Fumarate 100 mg 08/11/20 21:00 08/11/20 20:08 Quetiapine Fumarate 100 Mg Tablet PO 100 mg BEDTIME [facility] Administration Allergies Allergies Allergy/AdvReac Type Severity Reaction Status Date / Time shellfish derived Allergy Severe ANAPHAYLAXI Verified 08/04/20 22:58 [SHELLFISH DERIVED] A Assessment & Plan Assessment & Plan (1) MDD (major depressive disorder), recurrent episode, severe: Status: Acute Code(s): F33.2 - Major depressive disorder, recurrent severe without psychotic features Assessment and Plan: 1. Increase cymbata to 60mg po daily 2. start remeron 15mg po qhs for sleep 3. Start prazosin 2mg po qhs for nightmares. (2) Cocaine use disorder, moderate, dependence: Status: Acute Code(s): F14.20 - Cocaine dependence, uncomplicated Assessment and Plan: encourage aftercare treatment- pt denies (3) Opioid use disorder, mild, in early remission, on maintenance therapy: Status: Acute Code(s): F11.11 - Opioid abuse, in remission Greater than 50% of the session was spent on counseling and/or coordination of care Reason for contiued inpatient stay Substantial Risk for: harm to self
[2020-08-12 18:00] VITALS: BP 106/51; PULSE 62; RESP 16; TEMP 36.6; O2SAT 94
[2020-08-12] MEDS: Baclofen 10 MG TABLET PO (18:41)
[2020-08-12 20:55] VITALS: BP 118/71; PULSE 71
[2020-08-12] MEDS: Atorvastatin Calcium 10 MG TABLET PO (20:55)
[2020-08-12] MEDS: Prazosin HCL 1 MG CAPSULE 2 MG PO (20:55)
[2020-08-12] MEDS: Mirtazapine 15 MG TABLET PO (20:56)
[2020-08-12] MEDS: QUEtiapine Fumarate 100 MG TABLET PO (20:56)
[2020-08-13 06:00] VITALS: BP 112/70; PULSE 64; TEMP 36.2; O2SAT 95
[2020-08-13] MEDS: Docusate Sodium 100 MG CAPSULE PO ×2 (08:28→21:20)
[2020-08-13] MEDS: Gabapentin 400 MG CAPSULE PO ×3 (08:28→21:20)
[2020-08-13] MEDS: DULoxetine HCl 60 MG CAPSULE.DR PO (08:28)
[2020-08-13] MEDS: NaPROXEN 500 MG TABLET PO ×2 (08:40→21:27)
[2020-08-13] MEDS: Nicotine Polacrilex 2 MG GUM BUCCAL ×4 (09:38→21:01)
--- NOTE | 2020-08-13 10:28 | HO.PSYCHPN ---
Subjective Subjective Date of Service: 08/13/20 Reason For Visit: polysubstance overdose Subjective Notes: Conditional Voluntary Interim History: Pt presenting irritable. had hidden silverware packet which he spontaneously gave to staff today. Focused on leaving and going home. He reports he continues to experience depressed mood, reports intermittent suicidal ideation but denies any plan or intent. Review of Systems Cardiovascular: Denies chest pain and Denies dyspnea on exertion Respiratory: Denies dyspnea on exertion Gastrointestinal: Denies constipation and Denies diarrhea Musculoskeletal: Reports back pain Mental Status Exam Mental Status Exam Narrative: Appearance: He appears well groomed, with good hygiene and in no distress. Behavior: he is calm, superficially cooperative. At times he is difficult to engage in conversation. Speech: clear, he is answering questions appropriately, speaking in full sentences, regular rate, soft volume, spontaneous Affect: blunted mood: depressed Thought process: inear Thought content: displays no sign of psychosis. He appears to be pessimistic. And he expresses feeling hopeless, and overwhelmed. Delusions: none Perceptual disturbances: He denies visual, auditory and tactile hallucinations at this time. Insight/judgment: fair x 2. Memory/cognition:He is alert to person place, time and situation. Hi short term, and long-term memory appeared to be grossly intact, based off of bedside questioning. SI: He currently states he is still suicidal and depressed but denies having a specific plan in place. He does however state that the second he is discharged he will figure it out and he will kill himself. HI: He denies homicidal ideation. Diagnostics Vital Signs (24Hr): Vital Signs - 24 hr 08/12/20 18:00 08/12/20 20:55 Temperature 97.8 F Pulse Rate 62 71 Respiratory Rate 16 Blood Pressure 106/51 L 118/71 Pulse Oximetry 94 Body Mass Index 33.9 Medications Medications Current Medications Generic Name Dose Route Start Last Admin Trade Name Freq PRN Reason Stop Dose Admin Acetaminophen 650 mg 08/08/20 21:58 Acetaminophen 325 Mg Tablet PO Q6H PRN Headache/Pain Mild Scale (1-3) Acetaminophen 650 mg 08/08/20 21:58 Acetaminophen 325 Mg Tablet PO Q6H PRN Pain, Mild (Pain Scale 1-3) Al Hydroxide/Mg Hydroxide 30 ml 08/08/20 21:58 Magnesium Hydrox/Alum Hydrox 30 Ml Oral.Susp PO Q6H PRN Heartburn/Nausea Atorvastatin Calcium 10 mg 08/09/20 21:00 08/12/20 20:55 Atorvastatin Calcium 10 Mg Tablet PO 10 mg BEDTIME CORIE Administration Baclofen 10 mg 08/08/20 21:58 08/12/20 18:41 Baclofen 10 Mg Tablet PO 10 mg BID PRN Administration Back Pain Bisacodyl 5 mg 08/08/20 21:58 Bisacodyl 5 Mg Tablet. PO DAILY PRN Constipation Clonidine HCl 0.1 mg 08/08/20 21:58 08/11/20 12:23 Clonidine Hcl 0.1 Mg Tablet PO 0.1 mg BID PRN Administration Agitation Protocol Docusate Sodium 100 mg 08/09/20 09:00 08/13/20 08:28 Docusate Sodium 100 Mg Capsule PO 100 mg BID CORIE Administration Duloxetine HCl 60 mg 08/12/20 09:00 08/13/20 08:28 Duloxetine Hcl 60 Mg Capsule.Dr PO 60 mg DAILY COIRE Administration Gabapentin 400 mg 08/09/20 09:00 08/13/20 08:28 Gabapentin 400 Mg Capsule PO 400 mg TID CORIE Administration Hydroxyzine HCl 25 mg 08/08/20 21:58 08/11/20 12:23 Hydroxyzine Hcl 25 Mg Tablet PO 25 mg BID PRN Administration Anxiety Hydroxyzine HCl 25 mg 08/08/20 21:58 Hydroxyzine Hcl 25 Mg Tablet PO BEDTIME PRN Anxiety Magnesium Hydroxide 30 ml 08/08/20 21:58 Milk Of Magnesia 30 Ml Oral.Susp PO DAILY PRN Constipation Methadone HCl 130 mg 08/09/20 09:00 08/13/20 08:28 Methadone Hcl 1 Mg/0.1 Ml Oral.Conc PO 130 mg DAILY CORIE Administration Mirtazapine 15 mg 08/11/20 21:00 08/12/20 20:56 Mirtazapine 15 Mg Tablet PO 15 mg BEDTIME CORIE Administration Naproxen 500 mg 08/11/20 21:00 08/13/20 08:40 Naproxen 500 Mg Tablet PO 500 mg DAILY@0900,2100 CORIE Administration Nicotine Polacrilex 2 mg 08/08/20 21:58 08/13/20 09:38 Nicotine Polacrilex 2 Mg Gum BUCCAL 2 mg Q2H PRN Administration Nicotine Cravings Nicotine Polacrilex 2 mg 08/09/20 10:54 08/12/20 19:50 Nicotine Polacrilex 2 Mg Gum BUCCAL 2 mg Q2H PRN Administration Nicotine Cravings Prazosin HCl 2 mg 08/11/20 21:00 08/12/20 20:55 Prazosin Hcl 1 Mg Capsule PO 2 mg BEDTIME CORIE Administration Protocol Quetiapine Fumarate 100 mg 08/11/20 21:00 08/12/20 20:56 Quetiapine Fumarate 100 Mg Tablet PO 100 mg BEDTIME CORIE Administration Allergies Allergies Allergy/AdvReac Type Severity Reaction Status Date / Time shellfish derived Allergy Severe ANAPHAYLAXI Verified 08/04/20 22:58 [SHELLFISH DERIVED] A Assessment & Plan Assessment & Plan (1) MDD (major depressive disorder), recurrent episode, severe: Status: Acute Code(s): F33.2 - Major depressive disorder, recurrent severe without psychotic features Assessment and Plan: 1. Continue cymbata to 60mg po daily 2.continue remeron 15mg po qhs for sleep 3. Continue prazosin 2mg po qhs for nightmares. (2) Cocaine use disorder, moderate, dependence: Status: Acute Code(s): F14.20 - Cocaine dependence, uncomplicated Assessment and Plan: encourage aftercare treatment- pt denies (3) Opioid use disorder, mild, in early remission, on maintenance therapy: Status: Acute Code(s): F11.11 - Opioid abuse, in remission Assessment and Plan: ON MAT: continue methadone treatment Greater than 50% of the session was spent on counseling and/or coordination of care Reason for contiued inpatient stay Substantial Risk for: harm to self, inability to function and med/psych decompensation
[2020-08-13 11:12] VITALS: BP 112/70; PULSE 64
[2020-08-13] MEDS: Baclofen 10 MG TABLET PO (11:12)
[2020-08-13] MEDS: cloNIDine HCL 0.1 MG TABLET PO (11:12)
[2020-08-13] MEDS: hydrOXYzine HCL 25 MG TABLET PO (14:53)
--- NOTE | 2020-08-13 15:21 | PC.NURSE ---
PT REQUESTED T/W COME WITH HIM TO HIS ROOM. PT SAID, I HAVE TO GIVE YOU SOMETHING . WHEN WE GOT TO HIS ROOM, PT REACHED UNDER THE MATTRESS AND TOOK OUT A SET OF METAL SILVERWARE AND HANDED IT TO T/W. PT SAID, WHEN I GOT HERE I HID THIS INCASE I NEEDED IT, BUT I DON'T. PT SAID HE NO LONGER FELT LIKE HE MIGHT HURT SELF.
[2020-08-13 21:20] VITALS: BP 133/77; PULSE 77
[2020-08-13] MEDS: Prazosin HCL 1 MG CAPSULE 2 MG PO (21:20)
[2020-08-13] MEDS: QUEtiapine Fumarate 100 MG TABLET PO (21:20)
[2020-08-13] MEDS: Atorvastatin Calcium 10 MG TABLET PO (21:20)
[2020-08-13] MEDS: Mirtazapine 15 MG TABLET PO (21:20)
[2020-08-14 06:00] VITALS: BP 128/80; PULSE 97; TEMP 36.9; O2SAT 96
[2020-08-14] MEDS: Docusate Sodium 100 MG CAPSULE PO ×2 (08:34→20:17)
[2020-08-14] MEDS: DULoxetine HCl 60 MG CAPSULE.DR PO (08:34)
[2020-08-14] MEDS: Gabapentin 400 MG CAPSULE PO ×3 (08:34→20:18)
[2020-08-14] MEDS: Nicotine Polacrilex 2 MG GUM BUCCAL ×2 (11:05→11:46)
[2020-08-14 11:46] VITALS: BP 112/64; PULSE 96
[2020-08-14] MEDS: Baclofen 10 MG TABLET PO ×2 (11:46→20:18)
[2020-08-14] MEDS: cloNIDine HCL 0.1 MG TABLET PO ×2 (11:46→20:20)
[2020-08-14] MEDS: hydrOXYzine HCL 25 MG TABLET PO (11:47)
[2020-08-14] MEDS: Nicotine Polacrilex 2 MG GUM 4 MG BUCCAL ×2 (14:49→20:17)
--- NOTE | 2020-08-14 16:22 | HO.PSYCHPN ---
Subjective Subjective Date of Service: 08/14/20 Reason For Visit: polysubstance overdose Interim History: Pt intermittently irritable. Focused on wanting to be discharge. Reports nicotine cravings. Reports some suicidal ideation but no plan or intent. still with depressed mood Review of Systems Cardiovascular: Denies chest pain and Denies dyspnea on exertion Respiratory: Denies dyspnea on exertion Gastrointestinal: Denies constipation and Denies diarrhea Musculoskeletal: Reports back pain Mental Status Exam Mental Status Exam Narrative: Appearance: He appears well groomed, with good hygiene and in no distress. Behavior: he is calm, superficially cooperative. At times he is difficult to engage in conversation. Speech: clear, he is answering questions appropriately, speaking in full sentences, regular rate, soft volume, spontaneous Affect: blunted mood: depressed Thought process: inear Thought content: displays no sign of psychosis. He appears to be pessimistic. And he expresses feeling hopeless, and overwhelmed. Delusions: none Perceptual disturbances: He denies visual, auditory and tactile hallucinations at this time. Insight/judgment: fair x 2. Memory/cognition:He is alert to person place, time and situation. Hi short term, and long-term memory appeared to be grossly intact, based off of bedside questioning. SI: He currently states he is still suicidal and depressed but denies having a specific plan in place. He does however state that the second he is discharged he will figure it out and he will kill himself. HI: He denies homicidal ideation. Judgement: Fair Diagnostics Vital Signs (24Hr): Vital Signs - 24 hr 08/13/20 21:20 08/14/20 06:00 08/14/20 11:46 Temperature 98.5 F Pulse Rate 77 97 96 Blood Pressure 133/77 128/80 112/64 Pulse Oximetry 96 Body Mass Index 33.9 Medications Medications Current Medications Generic Name Dose Route Start Last Admin Trade Name Freq PRN Reason Stop Dose Admin Acetaminophen 650 mg 08/08/20 21:58 Acetaminophen 325 Mg Tablet PO Q6H PRN Headache/Pain Mild Scale (1-3) Acetaminophen 650 mg 08/08/20 21:58 Acetaminophen 325 Mg Tablet PO Q6H PRN Pain, Mild (Pain Scale 1-3) Al Hydroxide/Mg Hydroxide 30 ml 08/08/20 21:58 Magnesium Hydrox/Alum Hydrox 30 Ml Oral.Susp PO Q6H PRN Heartburn/Nausea Atorvastatin Calcium 10 mg 08/09/20 21:00 08/13/20 21:20 Atorvastatin Calcium 10 Mg Tablet PO 10 mg BEDTIME CORIE Administration Baclofen 10 mg 08/08/20 21:58 08/14/20 11:46 Baclofen 10 Mg Tablet PO 10 mg BID PRN Administration Back Pain Bisacodyl 5 mg 08/08/20 21:58 Bisacodyl 5 Mg Tablet. PO DAILY PRN Constipation Clonidine HCl 0.1 mg 08/08/20 21:58 08/14/20 11:46 Clonidine Hcl 0.1 Mg Tablet PO 0.1 mg BID PRN Administration Agitation Protocol Docusate Sodium 100 mg 08/09/20 09:00 08/14/20 08:34 Docusate Sodium 100 Mg Capsule PO 100 mg BID CORIE Administration Duloxetine HCl 60 mg 08/12/20 09:00 08/14/20 08:34 Duloxetine Hcl 60 Mg Capsule. PO 60 mg DAILY CORIE Administration Gabapentin 400 mg 08/09/20 09:00 08/14/20 14:44 Gabapentin 400 Mg Capsule PO 400 mg TID CORIE Administration Hydroxyzine HCl 25 mg 08/08/20 21:58 08/14/20 11:47 Hydroxyzine Hcl 25 Mg Tablet PO 25 mg BID PRN Administration Anxiety Hydroxyzine HCl 25 mg 08/08/20 21:58 Hydroxyzine Hcl 25 Mg Tablet PO BEDTIME PRN Anxiety Magnesium Hydroxide 30 ml 08/08/20 21:58 Milk Of Magnesia 30 Ml Oral.Susp PO DAILY PRN Constipation Methadone HCl 130 mg 08/09/20 09:00 08/14/20 08:34 Methadone Hcl 1 Mg/0.1 Ml Oral.Conc PO 130 mg DAILY CORIE Administration Mirtazapine 15 mg 08/11/20 21:00 08/13/20 21:20 Mirtazapine 15 Mg Tablet PO 15 mg BEDTIME CORIE Administration Naproxen 500 mg 08/11/20 21:00 08/14/20 08:35 Naproxen 500 Mg Tablet PO Not Given DAILY@0900,2100 CORIE Nicotine Polacrilex 4 mg 08/14/20 11:47 08/14/20 14:49 Nicotine Polacrilex 2 Mg Gum BUCCAL 4 mg Q2H PRN Administration Nicotine Cravings Prazosin HCl 2 mg 08/11/20 21:00 04/10/21 21:20 Prazosin Hcl 1 Mg Capsule PO 2 mg BEDTIME CORIE Administration Protocol Quetiapine Fumarate 100 mg 08/11/20 21:00 08/13/20 21:20 Quetiapine Fumarate 100 Mg Tablet PO 100 mg BEDTIME CORIE Administration Allergies Allergies Allergy/AdvReac Type Severity Reaction Status Date / Time shellfish derived Allergy Severe ANAPHAYLAXI Verified 08/04/20 22:58 [SHELLFISH DERIVED] A Assessment & Plan Assessment & Plan (1) MDD (major depressive disorder), recurrent episode, severe: Status: Acute Code(s): F33.2 - Major depressive disorder, recurrent severe without psychotic features Assessment and Plan: 1. Continue cymbalta to 60mg po daily 2.continue remeron 15mg po qhs for sleep 3. Continue prazosin 2mg po qhs for nightmares. 4. Increase nicorette gum to 4 mg q2 - 4 hrs prn cravings (2) Cocaine use disorder, moderate, dependence: Status: Acute Code(s): F14.20 - Cocaine dependence, uncomplicated Assessment and Plan: encourage aftercare treatment- pt denies (3) Opioid use disorder, mild, in early remission, on maintenance therapy: Status: Acute Code(s): F11.11 - Opioid abuse, in remission Assessment and Plan: ON MAT: continue methadone treatment Greater than 50% of the session was spent on counseling and/or coordination of care Reason for contiued inpatient stay Substantial Risk for: harm to self, inability to function and med/psych decompensation
[2020-08-14 20:17] VITALS: BP 125/69; PULSE 92
[2020-08-14] MEDS: Mirtazapine 15 MG TABLET PO (20:17)
[2020-08-14] MEDS: Prazosin HCL 1 MG CAPSULE 2 MG PO (20:17)
[2020-08-14] MEDS: QUEtiapine Fumarate 100 MG TABLET PO (20:17)
[2020-08-14] MEDS: Atorvastatin Calcium 10 MG TABLET PO (20:18)
[2020-08-14 20:20] VITALS: BP 125/69; PULSE 92
[2020-08-15] MEDS: Nicotine Polacrilex 2 MG GUM 4 MG BUCCAL ×3 (00:59→10:50)
[2020-08-15 06:00] VITALS: RESP 16
[2020-08-15] MEDS: DULoxetine HCl 60 MG CAPSULE.DR PO (08:51)
[2020-08-15] MEDS: Docusate Sodium 100 MG CAPSULE PO (08:51)
[2020-08-15] MEDS: Gabapentin 400 MG CAPSULE PO (08:51)
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
[2020-08-15] MEDS: Baclofen 10 MG TABLET PO (10:49)
[2020-08-15] MEDS: NaPROXEN 500 MG TABLET PO (10:51)
[2020-08-15 10:52] VITALS: BP 125/70; PULSE 89
[2020-08-15] MEDS: cloNIDine HCL 0.1 MG TABLET PO (10:52)
== END 2020-08-15 12:15 | disposition home or self-care (01) | DRG 751 ==
PROVIDERS: Admitting Provider Psychiatry & Neurology Psychiatry; Visit Provider Social Worker
DX: F33.2 Major depressive disorder, recurrent severe without psychotic features (principal); R45.851 Suicidal ideations; F11.20 Opioid dependence, uncomplicated; F14.20 Cocaine dependence, uncomplicated; Z79.1 Long term (current) use of non-steroidal anti-inflammatories (NSAID); Z79.899 Other long term (current) drug therapy

== ENCOUNTER 2020-09-09 11:48 | Inpatient (IN) | payer OTHER, MEDICAID, SELFPAY ==
--- NOTE | 2020-09-09 | ECG_ITS ---
Test Reason : CARDIAC HISTORY Blood Pressure : / mmHG Vent. Rate : 082 BPM Atrial Rate : 082 BPM P-R Int : 158 ms QRS Dur : 090 ms QT Int : 422 ms P-R-T Axes : 048 050 047 degrees QTc Int : 493 ms Normal sinus rhythm Prolonged QT Abnormal ECG When compared with ECG of 03-AUG-2020 19:19, No significant change was found Referred By: Kareen Lockwood Electronically Signed By:JAYLA BARRETT
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
--- NOTE | 2020-09-09 12:26 | PC.NURSE ---
message left with [facility] requesting a call back for dose verification
[2020-09-09 12:40] VITALS: BMI 34.0
[2020-09-09 12:50] LABS: Basophils Percent Auto 0.2 % (0-2); Eosinophils Percent Auto 0.2 % (0-4); Hematocrit 40.9 % (42-52); Hemoglobin 13.3 g/dl (14.0-18.0); Imm Gran Pct Auto 0.9 % (0.0-0.4); Lymphocytes Absolute Auto 1.5 X10*3/uL (1.2-4.9); Lymphocytes Percent Auto 13.2 % (20-40); MANUAL DIFF FLAG SCAN; Mean Corpuscular HGB Conc 32.5 g/dl (31.0-36.0); Mean Corpuscular Hemoglobin 27.1 pg (27.0-33.0); Mean Corpuscular Volume 83.3 fL (80-98); Monocytes Absolute Auto 1.5 X10*3/uL (0.1-1.2); Neutrophils Absolute Auto 8.3 X10*3/uL (2.0-8.3); Neutrophils Percent Auto 72.5 % (45-73); PLT CLUMP 1; Red Blood Count 4.91 X10*6/uL (4.60-5.80); Red Cell Distribution Width 13.7 % (11.0-16.0); SCAN SMEAR FLAG 1
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
[2020-09-09 13:05] LABS: IDNOW Serial# 08D9AD1C
[2020-09-09 13:06] LABS: COVID-19 Test Negative (Negative)
[2020-09-09 13:08] LABS: Platelet Count 235 X10*3/uL (160-400); White Blood Count 11.5 X10*3/uL (4.8-10.8)
[2020-09-09 13:09] LABS: SLIDE REVIEW VERIFIED
[2020-09-09 13:16] LABS: Ethanol < 10 mg/dL
[2020-09-09 13:20] LABS: Alanine Aminotransferase 27 U/L (0-40); Albumin Level 4.6 g/dL (3.5-5.0); Alkaline Phosphatase 124 U/L (39-117); Anion Gap 15 (12-20); Aspartate Amino Transferase 31 U/L (5-37); Bilirubin Direct 0.2 mg/dL (0.0-0.5); Bilirubin Total 0.3 mg/dL (0.0-1.0); Blood Urea Nitrogen 14 mg/dL (9-16); Calcium 9.9 mg/dL (8.4-10.2); Carbon Dioxide 26 mmol/L (22-29); Chloride 100 mmol/L (96-108); Estimated Glomerular Filt Rate > 60; Glucose Random 111 mg/dL (60-115); Potassium 4.1 mmol/L (3.3-5.1); Sodium 137 mmol/L (135-145); Total Protein 7.9 g/dL (6.5-8.0)
[2020-09-09 13:29] VITALS: BP 109/63; PULSE 87; RESP 18; TEMP 36.8; O2SAT 95
--- NOTE | 2020-09-09 15:50 | PC.NURSE ---
PT has been inpatient with [facility] for past week, per his discharge instructions from [facility], pt was dosed with 130mg methadone 5\6
[2020-09-09 16:51] VITALS: RESP 18
[2020-09-09 17:39] VITALS: BP 120/69; PULSE 77; RESP 20; TEMP 36.6; O2SAT 97
--- NOTE | 2020-09-09 18:19 | PC.NURSE ---
BHN at bedside for eval
[2020-09-09 20:47] VITALS: BP 112/61; PULSE 75; RESP 20; TEMP 36.6; O2SAT 97
[2020-09-09 21:00] VITALS: BP 112/61; PULSE 97
[2020-09-09] MEDS: Baclofen 10 MG TABLET PO (21:00)
[2020-09-09] MEDS: Gabapentin 400 MG CAPSULE PO (21:00)
[2020-09-09] MEDS: Acetaminophen 325 MG TABLET 650 MG PO (21:00)
[2020-09-09] MEDS: Prazosin HCL 1 MG CAPSULE 2 MG PO (21:00)
[2020-09-09] MEDS: Mirtazapine 7.5 MG TABLET 30 MG PO (21:00)
--- NOTE | 2020-09-09 21:29 | PC.NURSE ---
Patient reported that he has been here since noon, he did not receive his medication for pain and he received partial dose of Methadone, discharged paper reviewed for medication, consulted pharmacy, med rec completed, provider updated, med rec approved, patient received all his night time medication, pain medication, and remaining dose of methadone completing his regular Methadone dose. Prior to receiving his medication patient was upset and angry over not getting his medication, as a result, refused to talk to N, N spoke with provider, sectioned the patient, disposition is to do f/u in the morning. Patient made aware of the fact that if he needs help he should speak with clinician and address his problem, patient agreed to talk, will continue to monitor.
[2020-09-10 03:55] LABS: Amphetamine Screen Urine Not Detected (Not Detect); Barbiturates, Urine Not Detected (Not Detect); Benzodiazepines Screen Urine Not Detected (Not Detect); Cannabinoid Screen Urine Not Detected (Not Detect); Cocaine Screen Urine POSITIVE (Not Detect); Opiate Screen Urine POSITIVE (Not Detect); Phencyclidine Screen Urine Not Detected (Not Detect)
[2020-09-10 06:13] VITALS: BP 99/54; PULSE 64; RESP 17; TEMP 36.9; O2SAT 99
--- NOTE | 2020-09-10 07:07 | PC.NURSE ---
Report received from GABRIELA Reeves. Pt resting, resp unlabored.
[2020-09-10 08:08] VITALS: BP 112/61; PULSE 72; RESP 16; TEMP 36.2; O2SAT 95
[2020-09-10] MEDS: Tamsulosin HCL 0.4 MG CAPSULE PO (08:15)
[2020-09-10] MEDS: FLUoxetine HCl 20 MG CAPSULE PO (08:15)
[2020-09-10] MEDS: Gabapentin 400 MG CAPSULE PO ×3 (08:16→20:12)
[2020-09-10] MEDS: Baclofen 10 MG TABLET PO ×2 (08:21→20:12)
--- NOTE | 2020-09-10 09:44 | HE.PHANOTE ---
METHADONE DOSE VERIFIED VIA MAR FROM [facility] 130mg LAST DOSE 09/08/20
--- NOTE | 2020-09-10 10:10 | PC.NURSE ---
Pt awake, reports some effect from baclofen but reports continued 'spasms' uncertain why he is getting these. Methadone dosage reviewed w/ pharmacy and given to pt as ordered.
--- NOTE | 2020-09-10 11:44 | PC.NURSE ---
Pt resting, resp unlabored.
--- NOTE | 2020-09-10 12:59 | PC.NURSE ---
BHN in to evaluate
[2020-09-10 14:00] VITALS: RESP 20
--- NOTE | 2020-09-10 17:12 | PC.NURSE ---
Pt resting, resp unlabored
[2020-09-10 17:43] VITALS: BP 114/56; PULSE 66; RESP 18; TEMP 36.4; O2SAT 95
--- NOTE | 2020-09-10 18:10 | PC.NURSE ---
Pt conversing w/ staff occasionally, appropriate, cooperative w/ care.
[2020-09-10 20:10] VITALS: BP 120/61; PULSE 70; RESP 18; TEMP 36.3; O2SAT 97
[2020-09-10 20:12] VITALS: BP 120/61; PULSE 70
[2020-09-10] MEDS: Prazosin HCL 1 MG CAPSULE 2 MG PO (20:12)
[2020-09-10] MEDS: Mirtazapine 7.5 MG TABLET 30 MG PO (20:12)
[2020-09-11 06:22] VITALS: BP 107/53; PULSE 59; RESP 17; TEMP 37.1; O2SAT 99
--- NOTE | 2020-09-11 07:07 | PC.NURSE ---
Report received from GABRIELA Reeves. Pt resting, resp unlabored.
[2020-09-11] MEDS: FLUoxetine HCl 20 MG CAPSULE PO (08:42)
[2020-09-11] MEDS: Gabapentin 400 MG CAPSULE PO ×3 (08:42→20:14)
[2020-09-11 08:48] VITALS: BP 106/71; PULSE 75; RESP 16; TEMP 36.6; O2SAT 96
[2020-09-11] MEDS: Tamsulosin HCL 0.4 MG CAPSULE PO (08:52)
[2020-09-11] MEDS: Baclofen 10 MG TABLET PO ×2 (09:07→20:14)
--- NOTE | 2020-09-11 09:47 | PC.NURSE ---
Pt resting in room, watching television. Affect brighter, pt reports he feels better today, states he slept well last night.
[2020-09-11 14:00] VITALS: RESP 18
--- NOTE | 2020-09-11 14:00 | PC.NURSE ---
Pt resting, resp unlabored
[2020-09-11 16:28] VITALS: RESP 20
--- NOTE | 2020-09-11 17:25 | PC.NURSE ---
Pt resting, resp unlabored
[2020-09-11 20:14] VITALS: BP 128/72; PULSE 75
[2020-09-11] MEDS: Mirtazapine 7.5 MG TABLET 30 MG PO (20:14)
[2020-09-11] MEDS: Prazosin HCL 1 MG CAPSULE 2 MG PO (20:14)
[2020-09-11 20:16] VITALS: BP 128/72; PULSE 75; RESP 18; TEMP 36.9; O2SAT 95
[2020-09-12 01:17] VITALS: BP 121/73; PULSE 73; RESP 18; TEMP 36.2; O2SAT 94
--- NOTE | 2020-09-12 06:59 | PC.NURSE ---
received report from previous shifts nurse, at start of shift patient asleep. patient appeared asleep, patient up and using bathroom, received breakfast
[2020-09-12 09:19] VITALS: BP 121/73; PULSE 73
[2020-09-12] MEDS: cloNIDine HCL 0.1 MG TABLET PO ×2 (09:19→19:29)
[2020-09-12] MEDS: Gabapentin 400 MG CAPSULE PO ×3 (09:20→20:51)
[2020-09-12] MEDS: Tamsulosin HCL 0.4 MG CAPSULE PO (09:20)
[2020-09-12] MEDS: FLUoxetine HCl 20 MG CAPSULE PO (09:20)
[2020-09-12 09:34] VITALS: BP 137/71; PULSE 65; RESP 18; TEMP 37.2; O2SAT 95
[2020-09-12] MEDS: Baclofen 10 MG TABLET PO ×2 (10:02→20:54)
[2020-09-12 18:00] VITALS: BP 127/73; PULSE 107; TEMP 36.3; O2SAT 95
[2020-09-12 19:29] VITALS: BP 136/78; PULSE 98
[2020-09-12] MEDS: NaPROXEN 500 MG TABLET PO (20:47)
[2020-09-12 20:48] VITALS: BP 118/72; PULSE 88
[2020-09-12] MEDS: Prazosin HCL 1 MG CAPSULE 2 MG PO (20:48)
[2020-09-12] MEDS: Docusate Sodium 100 MG CAPSULE PO (20:51)
[2020-09-12] MEDS: Mirtazapine 7.5 MG TABLET 30 MG PO (20:51)
[2020-09-12] MEDS: Atorvastatin Calcium 10 MG TABLET PO (21:02)
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
[2020-09-13 06:25] VITALS: BP 89/53; PULSE 55; RESP 18; TEMP 36.3; O2SAT 96
[2020-09-13] MEDS: DULoxetine HCl 30 MG CAPSULE.DR 90 MG PO (09:09)
[2020-09-13] MEDS: Tamsulosin HCL 0.4 MG CAPSULE PO (09:10)
[2020-09-13] MEDS: Docusate Sodium 100 MG CAPSULE PO ×2 (09:10→21:51)
[2020-09-13] MEDS: Gabapentin 400 MG CAPSULE PO ×3 (09:10→21:52)
[2020-09-13] MEDS: NaPROXEN 500 MG TABLET PO ×2 (09:10→21:51)
[2020-09-13 09:13] VITALS: BP 140/67; PULSE 96
[2020-09-13] MEDS: cloNIDine HCL 0.1 MG TABLET PO (09:13)
[2020-09-13] MEDS: hydrOXYzine HCL 25 MG TABLET PO (09:14)
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
[2020-09-13 18:00] VITALS: BP 121/72; PULSE 59; TEMP 36.2
[2020-09-13 21:52] VITALS: BP 119/65; PULSE 75
[2020-09-13] MEDS: Atorvastatin Calcium 10 MG TABLET PO (21:52)
[2020-09-13] MEDS: Prazosin HCL 1 MG CAPSULE 2 MG PO (21:52)
[2020-09-13] MEDS: Divalproex Sodium ER 500 MG TAB.ER.24H PO (21:53)
[2020-09-13] MEDS: Mirtazapine 7.5 MG TABLET 30 MG PO (21:53)
[2020-09-13] MEDS: QUEtiapine Fumarate 100 MG TABLET PO (21:53)
[2020-09-14 06:00] VITALS: BP 116/55; PULSE 93; TEMP 36.9; O2SAT 98
[2020-09-14] MEDS: NaPROXEN 500 MG TABLET PO ×2 (08:12→21:27)
[2020-09-14] MEDS: Tamsulosin HCL 0.4 MG CAPSULE PO (08:12)
[2020-09-14] MEDS: Docusate Sodium 100 MG CAPSULE PO ×2 (08:12→21:27)
[2020-09-14] MEDS: Gabapentin 400 MG CAPSULE PO ×3 (08:12→21:27)
[2020-09-14] MEDS: DULoxetine HCl 30 MG CAPSULE.DR 90 MG PO (08:13)
[2020-09-14 09:18] LABS: Iron 85 mcg/dL (45-160); Percent Iron Saturation 21 % (15-50); Total Iron Binding Capacity 402 mcg/dL (228-428); Unsaturated Iron Binding 317 ug/dL
[2020-09-14 09:39] LABS: Thyroid Stimulating Hormone 0.55 uIU/mL (0.32-4.0)
[2020-09-14] MEDS: Baclofen 10 MG TABLET PO ×2 (09:58→21:27)
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
[2020-09-14 17:08] VITALS: BP 115/59; PULSE 70; RESP 18; TEMP 36.4; O2SAT 95
[2020-09-14] MEDS: Mirtazapine 7.5 MG TABLET 30 MG PO (21:26)
[2020-09-14 21:27] VITALS: BP 137/69; PULSE 94
[2020-09-14] MEDS: Atorvastatin Calcium 10 MG TABLET PO (21:27)
[2020-09-14] MEDS: QUEtiapine Fumarate 100 MG TABLET PO (21:27)
[2020-09-14] MEDS: Prazosin HCL 1 MG CAPSULE 2 MG PO (21:27)
[2020-09-14] MEDS: Divalproex Sodium ER 500 MG TAB.ER.24H PO (21:27)
[2020-09-15 06:20] VITALS: BP 125/61; PULSE 82; RESP 18; TEMP 35.9
[2020-09-15] MEDS: Tamsulosin HCL 0.4 MG CAPSULE PO (08:33)
[2020-09-15] MEDS: DULoxetine HCl 30 MG CAPSULE.DR 90 MG PO (08:33)
[2020-09-15] MEDS: Gabapentin 400 MG CAPSULE PO ×3 (08:33→20:25)
[2020-09-15] MEDS: Docusate Sodium 100 MG CAPSULE PO ×2 (08:33→20:25)
[2020-09-15] MEDS: NaPROXEN 500 MG TABLET PO (08:33)
[2020-09-15 09:52] VITALS: BMI 35.7
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
[2020-09-15 12:02] VITALS: BP 124/63; PULSE 105
[2020-09-15] MEDS: cloNIDine HCL 0.1 MG TABLET PO ×2 (12:02→20:25)
[2020-09-15] MEDS: hydrOXYzine HCL 25 MG TABLET PO (12:02)
[2020-09-15] MEDS: A and D Ointment 56.7 GM TUBE 1 APPL TOPICAL (14:17)
[2020-09-15 20:25] VITALS: BP 135/88; PULSE 86
[2020-09-15] MEDS: Mirtazapine 7.5 MG TABLET 30 MG PO (20:25)
[2020-09-15] MEDS: Divalproex Sodium ER 250 MG TAB.ER.24H 750 MG PO (20:25)
[2020-09-15] MEDS: Atorvastatin Calcium 10 MG TABLET PO (20:25)
[2020-09-15] MEDS: QUEtiapine Fumarate 100 MG TABLET PO (20:25)
[2020-09-15] MEDS: Baclofen 10 MG TABLET PO (20:25)
[2020-09-15 20:26] VITALS: BP 135/88; PULSE 86
[2020-09-15] MEDS: Prazosin HCL 1 MG CAPSULE 2 MG PO (20:26)
[2020-09-15 20:31] VITALS: TEMP 36.5
--- NOTE | 2020-09-16 | ECG_ITS ---
Test Reason : ANTI PSYCOTIC CHANGE Blood Pressure : / mmHG Vent. Rate : 078 BPM Atrial Rate : 078 BPM P-R Int : 160 ms QRS Dur : 086 ms QT Int : 394 ms P-R-T Axes : 029 039 031 degrees QTc Int : 449 ms Normal sinus rhythm Normal ECG When compared with ECG of 09-SEP-2020 12:16, No significant change was found Referred By: Shereen Santoyo Electronically Signed By:Jesse Sloan
[2020-09-16 06:00] VITALS: BP 99/60; PULSE 78; RESP 16; TEMP 36.1; O2SAT 96
[2020-09-16] MEDS: DULoxetine HCl 30 MG CAPSULE.DR 90 MG PO (08:28)
[2020-09-16] MEDS: Tamsulosin HCL 0.4 MG CAPSULE PO (08:29)
[2020-09-16] MEDS: Docusate Sodium 100 MG CAPSULE PO ×2 (08:29→21:02)
[2020-09-16] MEDS: Gabapentin 400 MG CAPSULE PO ×3 (08:29→21:02)
[2020-09-16] MEDS: A and D Ointment 56.7 GM TUBE 1 APPL TOPICAL (09:46)
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
[2020-09-16] MEDS: Baclofen 10 MG TABLET PO ×2 (14:21→21:02)
[2020-09-16 14:22] VITALS: BP 136/64; PULSE 93
[2020-09-16] MEDS: cloNIDine HCL 0.1 MG TABLET PO (14:22)
[2020-09-16] MEDS: hydrOXYzine HCL 25 MG TABLET PO (14:22)
[2020-09-16 18:00] VITALS: BP 129/65; PULSE 62; TEMP 36.5
[2020-09-16 18:12] LABS: Folate 14.1 ng/mL (> or = 4.0); Vitamin B12 417 pg/mL (200-900)
[2020-09-16] MEDS: Divalproex Sodium ER 250 MG TAB.ER.24H 750 MG PO (20:58)
[2020-09-16] MEDS: NaPROXEN 500 MG TABLET PO (20:58)
[2020-09-16] MEDS: Atorvastatin Calcium 10 MG TABLET PO (20:59)
[2020-09-16 21:01] VITALS: BP 127/63; PULSE 82
[2020-09-16] MEDS: Prazosin HCL 1 MG CAPSULE 2 MG PO (21:01)
[2020-09-16] MEDS: risperiDONE 1 MG TABLET PO (21:02)
[2020-09-16] MEDS: Mirtazapine 7.5 MG TABLET 30 MG PO (21:03)
[2020-09-17] MEDS: Docusate Sodium 100 MG CAPSULE PO ×2 (08:29→20:34)
[2020-09-17] MEDS: Gabapentin 400 MG CAPSULE PO ×3 (08:29→20:33)
[2020-09-17] MEDS: Baclofen 10 MG TABLET PO ×3 (08:29→20:25)
[2020-09-17] MEDS: Tamsulosin HCL 0.4 MG CAPSULE PO (08:29)
[2020-09-17] MEDS: hydrOXYzine HCL 25 MG TABLET PO ×2 (08:29→17:47)
[2020-09-17 08:30] VITALS: BP 118/64; PULSE 82
[2020-09-17] MEDS: DULoxetine HCl 30 MG CAPSULE.DR 90 MG PO (08:30)
[2020-09-17] MEDS: cloNIDine HCL 0.1 MG TABLET PO ×3 (08:30→20:24)
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
--- NOTE | 2020-09-17 13:48 | PC.NURSE ---
Signed 3 day, up 09/21; Carole LUNA and SW aware.
[2020-09-17 15:08] VITALS: BP 126/72; PULSE 95
[2020-09-17 20:15] VITALS: BP 119/59; PULSE 88; TEMP 36.8
[2020-09-17 20:24] VITALS: BP 119/59; PULSE 88
[2020-09-17] MEDS: NaPROXEN 500 MG TABLET PO (20:29)
[2020-09-17] MEDS: Mirtazapine 7.5 MG TABLET 30 MG PO (20:30)
[2020-09-17 20:32] VITALS: BP 119/59; PULSE 88
[2020-09-17] MEDS: Prazosin HCL 1 MG CAPSULE 2 MG PO (20:32)
[2020-09-17] MEDS: Divalproex Sodium ER 250 MG TAB.ER.24H 750 MG PO (20:33)
[2020-09-17] MEDS: risperiDONE 1 MG TABLET PO (20:34)
[2020-09-17] MEDS: Atorvastatin Calcium 10 MG TABLET PO (20:34)
[2020-09-18 06:00] VITALS: BP 111/59; PULSE 95; RESP 18; TEMP 36.6; O2SAT 97
[2020-09-18] MEDS: Tamsulosin HCL 0.4 MG CAPSULE PO (08:34)
[2020-09-18] MEDS: DULoxetine HCl 30 MG CAPSULE.DR 90 MG PO (08:34)
[2020-09-18] MEDS: Baclofen 10 MG TABLET PO ×2 (08:34→20:46)
[2020-09-18] MEDS: Docusate Sodium 100 MG CAPSULE PO ×2 (08:35→20:46)
[2020-09-18] MEDS: Gabapentin 400 MG CAPSULE PO ×3 (08:35→20:46)
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
[2020-09-18 10:22] VITALS: BP 134/63; PULSE 110
[2020-09-18] MEDS: Nystatin Ointment 15 GM TUBE 1 APPL TOPICAL ×2 (10:22→21:11)
[2020-09-18] MEDS: cloNIDine HCL 0.1 MG TABLET PO ×2 (10:22→20:46)
[2020-09-18] MEDS: hydrOXYzine HCL 25 MG TABLET PO (10:29)
[2020-09-18 19:57] VITALS: BP 134/73; PULSE 93; RESP 16; O2SAT 97
[2020-09-18] MEDS: traZODone HCL 50 MG TABLET PO (20:46)
[2020-09-18] MEDS: Divalproex Sodium ER 250 MG TAB.ER.24H 750 MG PO (20:46)
[2020-09-18] MEDS: Mirtazapine 7.5 MG TABLET 30 MG PO (20:46)
[2020-09-18] MEDS: risperiDONE 1 MG TABLET PO (20:46)
[2020-09-18] MEDS: Atorvastatin Calcium 10 MG TABLET PO (20:46)
[2020-09-18] MEDS: Prazosin HCL 1 MG CAPSULE 2 MG PO (20:46)
[2020-09-19 06:48] VITALS: BP 162/67; PULSE 91; TEMP 36.3; O2SAT 97
[2020-09-19] MEDS: DULoxetine HCl 30 MG CAPSULE.DR 90 MG PO (07:58)
[2020-09-19] MEDS: cloNIDine HCL 0.1 MG TABLET PO (07:58)
[2020-09-19] MEDS: Docusate Sodium 100 MG CAPSULE PO (07:58)
[2020-09-19] MEDS: Baclofen 10 MG TABLET PO (07:59)
[2020-09-19] MEDS: Tamsulosin HCL 0.4 MG CAPSULE PO (07:59)
[2020-09-19] MEDS: Gabapentin 400 MG CAPSULE PO (07:59)
[2020-09-19] MEDS: Nystatin Ointment 15 GM TUBE 1 APPL TOPICAL (08:04)
[2020-09-19 08:21] LABS: Valproate 43.9 mcg/mL (50.0-100.0)
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
== END 2020-09-19 12:55 | disposition home or self-care (01) | DRG 751 ==
LOC: HO.ED 09-12 13:38 → HO.PM5 09-12 14:33
PROVIDERS: Admitting Provider Psychiatry & Neurology Psychiatry; Emergency Provider Emergency Medicine; Visit Provider Clinical Nurse Specialist Psychiatric/Mental Health, Adult
DX: F33.2 Major depressive disorder, recurrent severe without psychotic features (principal); R45.851 Suicidal ideations; F11.20 Opioid dependence, uncomplicated; F14.20 Cocaine dependence, uncomplicated; G89.29 Other chronic pain; E78.5 Hyperlipidemia, unspecified; F17.210 Nicotine dependence, cigarettes, uncomplicated; F43.10 Post-traumatic stress disorder, unspecified; D64.9 Anemia, unspecified; N40.0 Benign prostatic hyperplasia without lower urinary tract symptoms; Z71.6 Tobacco abuse counseling; Z20.822 Contact with and (suspected) exposure to COVID-19; Z79.899 Other long term (current) drug therapy
CPT/HCPCS: 36415; 80048; 80076; 80164; 80307; 80320; 82607; 82746; 83540; 84443; 85025; 87635; 93005; 99285

== ENCOUNTER 2020-09-13 10:54 | Outpatient (RCR) | payer OTHER, SELFPAY | END 2020-09-13 10:55 | disposition home or self-care (01) | LOC: HO.PHPA 10:54 | PROVIDERS: Visit Provider Psychiatry & Neurology Psychiatry | DX: F32.9 Major depressive disorder, single episode, unspecified (principal) ==

== ENCOUNTER 2020-10-12 18:26 | Inpatient (IN) | payer OTHER, SELFPAY ==
--- NOTE | 2020-10-12 | ECG_ITS ---
Test Reason : MED CLEAR Blood Pressure : / mmHG Vent. Rate : 083 BPM Atrial Rate : 083 BPM P-R Int : 150 ms QRS Dur : 090 ms QT Int : 482 ms P-R-T Axes : 028 040 034 degrees QTc Int : 566 ms Normal sinus rhythm Prolonged QT Abnormal ECG When compared with ECG of 16-SEP-2020 13:58, QT has lengthened Referred By: Generic ED Physician Electronically Signed By:RAMÓN PALOMO MD
--- NOTE | ~2020-10-12 | US_ITS ---
EXAMINATION: US VENOUS WITH DOPPLER UPPER EXTREMITY, LEFT CLINICAL INFORMATION: Area of bruising and discoloration in the posterior dorsal aspect of antecubital forearm. COMPARISON: None TECHNIQUE: Ultrasound of the upper extremity is performed using compression sonography and color and pulse Doppler flow with assessment of augmentation of flow. There is also imaging and Doppler assessment of the jugular and subclavian veins. Spectral analysis with color-flow imaging is performed. FINDINGS: Respiratory variation, normal compression, and augmented flow are noted throughout the upper extremity including the axillary, brachial, cubital, and radial and ulnar veins. There is normal flow in the internal jugular and subclavian veins. There is no visible deep or superficial thrombophlebitis. There is bruising and discoloration in the posterior dorsal aspect of antecubital forearm likely cellulitis or a small hematoma If the patient's symptoms progress, a followup ultrasound in 5 -7 days might be of value to exclude proximal propagation from a nonvisualized distal arm vein. US/US venous duplex UE LT IMPRESSION: No DVT demonstrated in the left arm. Bruising at discoloration in the posterior and superior of antecubital fossa likely cellulitis or a small soft tissue hematoma.
--- NOTE | ~2020-10-12 | XR_ITS ---
EXAMINATION: XR ELBOW, LEFT CLINICAL INFORMATION: Needle injection site with swelling COMPARISON: None TECHNIQUE: AP, lateral, and oblique views of the left elbow. FINDINGS: No fracture, dislocation, or joint effusion. There is soft tissue swelling and reticulation of the subcutaneous fat of the medial proximal forearm. No radiopaque foreign body or soft tissue gas. XR/XR elbow LT min 3V IMPRESSION: No radiopaque foreign body or soft tissue gas. Soft tissue swelling and reticulation of the subcutaneous fat of the medial proximal forearm.
[2020-10-12 18:29] VITALS: BP 142/98; PULSE 112; RESP 16; TEMP 36.8; O2SAT 87; BMI 34.0
[2020-10-12 19:39] VITALS: BP 113/71; PULSE 88; RESP 20; TEMP 36.7; O2SAT 93
[2020-10-12 19:50] LABS: IDNOW Serial# 08D9AD1C
[2020-10-12 19:51] LABS: COVID-19 Test Negative (Negative)
[2020-10-12 20:13] LABS: Glucose Urine UA NEG (NEG); Leukocyte Esterase Urine NEG (NEG); Nitrite Urine NEG (NEG); Specific Gravity - Urine >= 1.030 (1.005-1.025); Urine Blood NEG (NEG); Urine Ketones 15 MG/DL (NEG); Urine Protein 1+ MG/DL (NEG-TRACE)
[2020-10-12 20:15] LABS: Appearance Urine HAZY; Color Urine DARK YELLOW
[2020-10-12 20:15] LABS: MANUAL DIFF FLAG NO
[2020-10-12 20:25] LABS: Basophils Percent Auto 0.2 % (0-2); Eosinophils Percent Auto 0.1 % (0-4); Hematocrit 42.1 % (42-52); Hemoglobin 13.8 g/dl (14.0-18.0); Imm Gran Abs Auto 0.06 X10*3/uL (0.00-0.03); Imm Gran Pct Auto 0.5 % (0.0-0.4); Lymphocytes Absolute Auto 1.5 X10*3/uL (1.2-4.9); Lymphocytes Percent Auto 13.7 % (20-40); Mean Corpuscular HGB Conc 32.8 g/dl (31.0-36.0); Mean Corpuscular Hemoglobin 27.3 pg (27.0-33.0); Mean Corpuscular Volume 83.2 fL (80-98); Mean Platelet Volume 9.5 fL (9.4-12.4); Monocytes Absolute Auto 1.2 X10*3/uL (0.1-1.2); Monocytes Percent Auto 11.1 % (2-11); Neutrophils Absolute Auto 8.2 X10*3/uL (2.0-8.3); Neutrophils Percent Auto 74.4 % (45-73); Platelet Count 255 X10*3/uL (160-400); Red Blood Count 5.06 X10*6/uL (4.60-5.80); Red Cell Distribution Width 13.5 % (11.0-16.0)
[2020-10-12 20:39] LABS: Bacteria Urine TRACE /LPF; Mucus Urine TRACE /LPF; Squamous Epithelial Cell Urine TRACE /LPF; WBC Urine 0 /HPF (0-4)
[2020-10-12 20:45] LABS: Ethanol < 10 mg/dL
[2020-10-12 20:46] LABS: Acetaminophen LAB < 1 mcg/mL (<30); Alanine Aminotransferase 33 U/L (0-40); Albumin Level 4.9 g/dL (3.5-5.0); Alkaline Phosphatase 153 U/L (39-117); Anion Gap 17 (12-20); Aspartate Amino Transferase 41 U/L (5-37); Bilirubin Direct 0.3 mg/dL (0.0-0.5); Bilirubin Total 0.5 mg/dL (0.0-1.0); Blood Urea Nitrogen 27 mg/dL (9-16); Calcium 10.5 mg/dL (8.4-10.2); Carbon Dioxide 26 mmol/L (22-29); Chloride 101 mmol/L (96-108); Creatinine Clr Calc Pharmacy 54.5; Estimated Glomerular Filt Rate 34; Glucose Random 91 mg/dL (60-115); Potassium 4.2 mmol/L (3.3-5.1); Salicylate < 5.0 mg/dL (15-30); Sodium 140 mmol/L (135-145); Total Protein 8.5 g/dL (6.5-8.0)
[2020-10-12 20:47] LABS: Amphetamine Screen Urine Not Detected (Not Detect); Barbiturates, Urine Not Detected (Not Detect); Benzodiazepines Screen Urine Not Detected (Not Detect); Cannabinoid Screen Urine POSITIVE (Not Detect); Cocaine Screen Urine POSITIVE (Not Detect); Opiate Screen Urine POSITIVE (Not Detect); Phencyclidine Screen Urine Not Detected (Not Detect)
--- NOTE | 2020-10-12 20:47 | PC.NURSE ---
paperwork faxed to [facility]
--- NOTE | 2020-10-12 21:13 | PC.NURSE ---
Spoke with Wilson at [facility] ([phone]), paperwork was received.
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
[2020-10-12] MEDS: 0.9 % Sodium Chloride 1,000 ML 999 ML IV ×2 (22:17)
[2020-10-12 22:26] VITALS: BP 122/68; PULSE 68; RESP 16; TEMP 36.7; O2SAT 95
--- NOTE | 2020-10-12 22:49 | PC.NURSE ---
Pt requsted that day shift on 10/13/20 call his methadone clinic [facility] for methadone dose. Phone number [phone]
[2020-10-13 02:20] LABS: Alanine Aminotransferase 24 U/L (0-40); Alkaline Phosphatase 125 U/L (39-117); Anion Gap 11 (12-20); Aspartate Amino Transferase 32 U/L (5-37); Bilirubin Total 0.4 mg/dL (0.0-1.0); Blood Urea Nitrogen 25 mg/dL (9-16); Calcium 8.8 mg/dL (8.4-10.2); Carbon Dioxide 28 mmol/L (22-29); Chloride 107 mmol/L (96-108); Creatinine Clr Calc Pharmacy 94.2; Estimated Glomerular Filt Rate > 60; Glucose Random 126 mg/dL (60-115); Potassium 3.8 mmol/L (3.3-5.1); Sodium 142 mmol/L (135-145); Total Protein 6.8 g/dL (6.5-8.0)
[2020-10-13 10:47] VITALS: BP 90/60; PULSE 60; RESP 18; TEMP 36.5; O2SAT 95
--- NOTE | 2020-10-13 10:53 | PC.NURSE ---
MULTIPLE CALLS TO [facility] FOR METHADONE VERIFICATION. CALM AND COOPERATIVE. C/O PAIN ALL OVER. PROVIDER AWARE.
[2020-10-13] MEDS: Baclofen 10 MG TABLET PO ×3 (11:58→20:58)
[2020-10-13] MEDS: Gabapentin 400 MG CAPSULE PO ×3 (11:58→20:58)
[2020-10-13] MEDS: NaPROXEN 500 MG TABLET PO (11:58)
--- NOTE | 2020-10-13 13:13 | MHC.CARE ---
Patient evaluated by the CARE Team to need inpatient psychiatric care, will remain in the ED until placement is secured.
--- NOTE | 2020-10-13 14:26 | PC.NURSE ---
Dr Roland will be in to see pt
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
[2020-10-13] MEDS: Divalproex Sodium ER 500 MG TAB.ER.24H PO ×2 (17:35→20:59)
[2020-10-13] MEDS: risperiDONE 1 MG TABLET PO (20:58)
[2020-10-14 06:47] VITALS: BP 94/43; PULSE 57; RESP 17; TEMP 36.6; O2SAT 94
--- NOTE | 2020-10-14 07:41 | PC.NURSE ---
Called to verify methadone dose, no answer, left message.
--- NOTE | 2020-10-14 08:39 | PC.NURSE ---
Plan for pt to go to [facility] today
[2020-10-14 08:57] VITALS: BP 97/42; PULSE 58; RESP 20; O2SAT 97
[2020-10-14] MEDS: Baclofen 10 MG TABLET PO ×2 (09:02→15:34)
[2020-10-14] MEDS: Gabapentin 400 MG CAPSULE PO ×2 (09:02→15:34)
--- NOTE | 2020-10-14 09:10 | PC.NURSE ---
Pt alert and oriented, ate breakfast, med compliant, Methadone dose verified. SWETHA Mo made aware of recent b/p. Transfer to [facility] pending. Pt resting quietly at this time.
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
[2020-10-15 09:05] VITALS: BP 99/55; PULSE 53; RESP 18; TEMP 36.6; O2SAT 98
[2020-10-15] MEDS: Gabapentin 400 MG CAPSULE PO ×3 (09:10→20:55)
[2020-10-15] MEDS: Baclofen 10 MG TABLET PO ×3 (09:10→20:55)
[2020-10-15] MEDS: Nicotine Polacrilex 2 MG GUM 4 MG BUCCAL ×2 (13:41→17:22)
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
[2020-10-15 20:15] VITALS: BP 126/71; PULSE 50; RESP 18; O2SAT 99
[2020-10-15] MEDS: risperiDONE 1 MG TABLET PO (20:55)
[2020-10-15] MEDS: Divalproex Sodium ER 500 MG TAB.ER.24H PO (20:55)
[2020-10-15 21:01] VITALS: BP 126/71; PULSE 80
[2020-10-15] MEDS: Prazosin HCL 1 MG CAPSULE PO (21:01)
--- NOTE | 2020-10-15 22:09 | P.PNPSI_ITS ---
Subjective Subjective Date of Service: 10/15/20 Reason For Visit: Crisis Subjective Notes: Thomas Warning Interim History: Presents as irritable. Frustrated around being in the hospital, but also recognizes he wants help. Reports not want to feel depressed or suicidal. no psychosis evident. Denied cravings. Was looking forward to being evaluated by hospitalist for what looks to be a left arm cellulitis from recent drug use. Has been off medications in same restarted and feels this would be beneficial. Uncertain around long-term treatment planning and sub stance programming Medication Compliance: Yes Review of Systems Review of Systems Left arm swelling with some redness and mild tenderness. Likely cellulitis from IV drug use. Mental Status Exam Mental Status Exam Narrative: In hospital clothing. Irritable at times. Slightly concrete. Normal speech. Reports feeling depressed. Denies current SI. Wants help. No overt psychosis. No HI. Insight and judgment fair Diagnostics Vital Signs (24Hr): Vital Signs - 24 hr 10/15/20 09:05 10/15/20 20:15 10/15/20 21:01 Temperature 97.9 F Pulse Rate 53 50 80 Respiratory Rate 18 18 Blood Pressure 99/55 L 126/71 126/71 Pulse Oximetry 98 99 Body Mass Index 34.0 Labs Results: 10/12/20 20:12 10/13/20 01:47 Imaging Radiology Impressions: ITS Impressions Elbow X-Ray 10/15/20 19:13 IMPRESSION: No radiopaque foreign body or soft tissue gas. Soft tissue swelling and reticulation of the subcutaneous fat of the medial proximal forearm. Medications Medications Current Medications Generic Name Dose Route Start Last Admin Trade Name Freq PRN Reason Stop Dose Admin Acetaminophen 650 mg 10/14/20 14:38 Acetaminophen 325 Mg Tablet PO Q6H PRN Headache/Pain Mild Scale (1-3) Al Hydroxide/Mg Hydroxide 30 ml 10/14/20 14:38 Magnesium Hydrox/Alum Hydrox 30 Ml Oral.Susp PO Q6H PRN Heartburn/Nausea Baclofen 10 mg 10/13/20 15:00 10/15/20 20:55 Baclofen 10 Mg Tablet PO 10 mg TID CORIE Administration Divalproex Sodium 500 mg 10/13/20 16:35 10/15/20 20:55 Divalproex Sodium Er 500 Mg Tab.Er.24h PO 500 mg BEDTIME CORIE Administration Doxycycline Hyclate 100 mg 10/15/20 21:00 10/15/20 20:55 Doxycycline Hyclate 100 Mg Tablet PO 10/20/20 23:00 100 mg Q12H CORIE Administration Gabapentin 400 mg 10/13/20 15:00 10/15/20 20:55 Gabapentin 400 Mg Capsule PO 400 mg TID CORIE Administration Hydroxyzine HCl 25 mg 10/14/20 14:38 Hydroxyzine Hcl 25 Mg Tablet PO BEDTIME PRN Anxiety Magnesium Hydroxide 30 ml 10/14/20 14:38 Milk Of Magnesia 30 Ml Oral.Susp PO DAILY PRN Constipation Methadone HCl 130 mg 10/14/20 09:00 10/15/20 09:10 Methadone Hcl 1 Mg/0.1 Ml Oral.Conc PO 130 mg DAILY CORIE Administration Naproxen 500 mg 10/13/20 11:44 10/13/20 11:58 Naproxen 500 Mg Tablet PO 500 mg Q12H PRN Administration pain Nicotine Polacrilex 4 mg 10/15/20 13:34 10/15/20 17:22 Nicotine Polacrilex 2 Mg Gum BUCCAL 4 mg Q2H PRN Administration Nicotine Cravings Prazosin HCl 1 mg 10/13/20 21:00 10/15/20 21:01 Prazosin Hcl 1 Mg Capsule PO 1 mg BEDTIME CORIE Administration Protocol Risperidone 1 mg 10/13/20 21:00 10/15/20 20:55 Risperidone 1 Mg Tablet PO 1 mg BEDTIME CORIE Administration Trazodone HCl 50 mg 10/14/20 14:38 Trazodone Hcl 50 Mg Tablet PO BEDTIME PRN Insomnia Allergies Allergies Allergy/AdvReac Type Severity Reaction Status Date / Time shellfish derived Allergy Severe ANAPHAYLAXI Verified 08/04/20 22:58 [SHELLFISH DERIVED] A Assessment & Plan Assessment & Plan (1) MDD (major depressive disorder), recurrent episode, severe: Status: Acute Code(s): F33.2 - Major depressive disorder, recurrent severe without psychotic features (2) PTSD (post-traumatic stress disorder): Status: Acute Code(s): F43.10 - Post-traumatic stress disorder, unspecified (3) Cocaine use disorder, moderate, dependence: Status: Acute Code(s): F14.20 - Cocaine dependence, uncomplicated (4) Opioid use disorder, mild, in early remission, on maintenance therapy: Status: Acute Code(s): F11.11 - Opioid abuse, in remission (5) Cellulitis: Status: Acute Code(s): L03.90 - Cellulitis, unspecified Assessment and Plan: Adult descendant male with several admissions for OD due to depressive symptoms with concomitant substance abuse, and recent SI. Medications just restarted and therefore no changes recommended currently. Hospitalist consult pending ref cellulitis Greater than 50% of the session was spent on counseling and/or coordination of care Reason for contiued inpatient stay Substantial Risk for: harm to self
[2020-10-16 08:41] VITALS: BP 113/67; PULSE 67; RESP 17; TEMP 36.9; O2SAT 99
[2020-10-16] MEDS: Gabapentin 400 MG CAPSULE PO ×3 (08:44→20:38)
[2020-10-16] MEDS: Baclofen 10 MG TABLET PO ×3 (08:45→20:37)
[2020-10-16] MEDS: Nicotine Polacrilex 2 MG GUM 4 MG BUCCAL ×3 (11:27→20:50)
--- NOTE | 2020-10-16 11:27 | HO.PM.IMPN ---
Subjective Subjective Date of Service: 10/16/20 Interval History: Seen in follow-up for left elbow cellulitis. Redness and swelling is better. Review of Systems Gen: no fever Resp: no sob, no cough CV: no chest, no WATTS, no leg edema GI: No n/v, no abd pain Neuro: No confusion MSK; redness and swelling is better at elbow area Physical Exam Vital Signs: Vital Signs: Last Vital Signs Temp 98.5 F 10/16/20 08:41 Pulse 67 10/16/20 08:41 Resp 17 10/16/20 08:41 BP 113/67 10/16/20 08:41 Pulse Ox 99 10/16/20 08:41 Body Mass Index 34.0 Const: Other: General: AO X 3, no acute distress Resp: CTA bilateral CVS: S1,S2,RRR GI: +BS, NT, no distention Skin: redness is better compare to yesterday Neuro: motor grossly intact Psych: appropriate affect Objective Data Current Medications Generic Name Dose Route Start Last Admin Trade Name Faustoq PRN Reason Stop Dose Admin Acetaminophen 650 mg 10/14/20 14:38 Acetaminophen 325 Mg Tablet PO Q6H PRN Headache/Pain Mild Scale (1-3) Al Hydroxide/Mg Hydroxide 30 ml 10/14/20 14:38 Magnesium Hydrox/Alum Hydrox 30 Ml Oral.Susp PO Q6H PRN Heartburn/Nausea Baclofen 10 mg 10/13/20 15:00 10/16/20 08:45 Baclofen 10 Mg Tablet PO 10 mg TID CORIE Administration Divalproex Sodium 500 mg 10/13/20 16:35 10/15/20 20:55 Divalproex Sodium Er 500 Mg Tab.Er.24h PO 500 mg BEDTIME CORIE Administration Doxycycline Hyclate 100 mg 10/15/20 21:00 10/16/20 08:44 Doxycycline Hyclate 100 Mg Tablet PO 10/20/20 23:00 100 mg Q12H CORIE Administration Gabapentin 400 mg 10/13/20 15:00 10/16/20 08:44 Gabapentin 400 Mg Capsule PO 400 mg TID CORIE Administration Hydroxyzine HCl 25 mg 10/14/20 14:38 Hydroxyzine Hcl 25 Mg Tablet PO BEDTIME PRN Anxiety Magnesium Hydroxide 30 ml 10/14/20 14:38 Milk Of Magnesia 30 Ml Oral.Susp PO DAILY PRN Constipation Methadone HCl 130 mg 10/14/20 09:00 10/16/20 08:44 Methadone Hcl 1 Mg/0.1 Ml Oral.Conc PO 130 mg DAILY CORIE Administration Naproxen 500 mg 10/13/20 11:44 10/13/20 11:58 Naproxen 500 Mg Tablet PO 500 mg Q12H PRN Administration pain Nicotine Polacrilex 4 mg 10/15/20 13:34 10/16/20 11:27 Nicotine Polacrilex 2 Mg Gum BUCCAL 4 mg Q2H PRN Administration Nicotine Cravings Prazosin HCl 1 mg 10/13/20 21:00 10/15/20 21:01 Prazosin Hcl 1 Mg Capsule PO 1 mg BEDTIME CORIE Administration Protocol Risperidone 1 mg 10/13/20 21:00 10/15/20 20:55 Risperidone 1 Mg Tablet PO 1 mg BEDTIME CORIE Administration Trazodone HCl 50 mg 10/14/20 14:38 Trazodone Hcl 50 Mg Tablet PO BEDTIME PRN Insomnia Labs CBC & Chem 7: 10/12/20 20:12 10/13/20 01:47 Assessment and Plan (1) Cellulitis: Status: Acute Assessment and Plan: Redness of Left arm area --thre is no fluctuance and therefore doubt abscess, it is not warm, xray no foreign body, ultrasound is pending--overall improving. Continue Doxycyline For Psychiatry issues, continue curent care,
--- NOTE | 2020-10-16 14:55 | P.PNPSI_ITS ---
Subjective Subjective Date of Service: 10/16/20 Reason For Visit: Depression, substance use and suicidal thoughts Medical Problems Affecting Mental Status: No Interim History: Reports feeling depressed and no longer wanting to live like he has recently. Discussed wanting to be off substances, but also self medicates because he feels depressed. Hopefully today being BRCA medications will help. Did clarify medication doses and made inconsistent with home medication list. Noted hospitalist follow-up and appreciates same around left arm cellulitis, but does not appear to be severe nature. Medication Compliance: Yes Side effects from medications: No Review of Systems Review of Systems Left arm cellulitis, that is stable /improving. Mental Status Exam Mental Status Exam Narrative: Pleasant and engaged today. Normal speech. Depressed and hopeless at times. Passive wish. No active SI. No HI. No psychosis. Insight and judgment okay Diagnostics Vital Signs (24Hr): Vital Signs - 24 hr 10/15/20 20:15 10/15/20 21:01 10/16/20 08:41 Temperature 98.5 F Pulse Rate 50 80 67 Respiratory Rate 18 17 Blood Pressure 126/71 126/71 113/67 Pulse Oximetry 99 99 Body Mass Index 34.0 Labs Results: 10/12/20 20:12 10/13/20 01:47 Imaging Radiology Impressions: ITS Impressions Elbow X-Ray 10/15/20 19:13 IMPRESSION: No radiopaque foreign body or soft tissue gas. Soft tissue swelling and reticulation of the subcutaneous fat of the medial proximal forearm. Medications Medications Current Medications Generic Name Dose Route Start Last Admin Trade Name Freq PRN Reason Stop Dose Admin Acetaminophen 650 mg 10/14/20 14:38 Acetaminophen 325 Mg Tablet PO Q6H PRN Headache/Pain Mild Scale (1-3) Al Hydroxide/Mg Hydroxide 30 ml 10/14/20 14:38 Magnesium Hydrox/Alum Hydrox 30 Ml Oral.Susp PO Q6H PRN Heartburn/Nausea Baclofen 10 mg 10/13/20 15:00 10/16/20 08:45 Baclofen 10 Mg Tablet PO 10 mg TID CORIE Administration Clonidine HCl 0.1 mg 10/16/20 15:00 Clonidine Hcl 0.1 Mg Tablet PO TID [facility] Protocol Divalproex Sodium 1,000 mg 10/16/20 21:00 Divalproex Sodium Er 500 Mg Tab.Er.24h PO BEDTIME CORIE Doxycycline Hyclate 100 mg 10/15/20 21:00 10/16/20 08:44 Doxycycline Hyclate 100 Mg Tablet PO 10/20/20 23:00 100 mg Q12H CORIE Administration Gabapentin 400 mg 10/13/20 15:00 10/16/20 08:44 Gabapentin 400 Mg Capsule PO 400 mg TID CORIE Administration Hydroxyzine HCl 25 mg 10/14/20 14:38 Hydroxyzine Hcl 25 Mg Tablet PO BEDTIME PRN Anxiety Magnesium Hydroxide 30 ml 10/14/20 14:38 Milk Of Magnesia 30 Ml Oral.Susp PO DAILY PRN Constipation Methadone HCl 130 mg 10/14/20 09:00 10/16/20 08:44 Methadone Hcl 1 Mg/0.1 Ml Oral.Conc PO 130 mg DAILY CORIE Administration Mirtazapine 30 mg 10/16/20 21:00 Mirtazapine 30 Mg Tablet PO BEDTIME CORIE Naproxen 500 mg 10/13/20 11:44 10/13/20 11:58 Naproxen 500 Mg Tablet PO 500 mg Q12H PRN Administration pain Nicotine Polacrilex 4 mg 10/15/20 13:34 10/16/20 11:27 Nicotine Polacrilex 2 Mg Gum BUCCAL 4 mg Q2H PRN Administration Nicotine Cravings Prazosin HCl 2 mg 10/16/20 21:00 Prazosin Hcl 1 Mg Capsule PO BEDTIME [facility] Protocol Risperidone 1 mg 10/13/20 21:00 10/15/20 20:55 Risperidone 1 Mg Tablet PO 1 mg BEDTIME CORIE Administration Trazodone HCl 50 mg 10/14/20 14:38 Trazodone Hcl 50 Mg Tablet PO BEDTIME PRN Insomnia Allergies Allergies Allergy/AdvReac Type Severity Reaction Status Date / Time shellfish derived Allergy Severe ANAPHAYLAXI Verified 08/04/20 22:58 [SHELLFISH DERIVED] A Assessment & Plan Assessment & Plan (1) Cellulitis: Status: Acute Code(s): L03.90 - Cellulitis, unspecified (2) MDD (major depressive disorder), recurrent episode, severe: Status: Acute Code(s): F33.2 - Major depressive disorder, recurrent severe without psychotic features (3) Cocaine use disorder, moderate, dependence: Status: Acute Code(s): F14.20 - Cocaine dependence, uncomplicated (4) PTSD (post-traumatic stress disorder): Status: Acute Code(s): F43.10 - Post-traumatic stress disorder, unspecified Assessment and Plan: As per hospitalist: Redness of Left arm area --thre is no fluctuance and therefore doubt abscess, it is not warm, xray no foreign body, ultrasound is pending--overall improving. Continue Doxycyline 10/16/20: Clarifies home medications and make current medications consistent with same. Otherwise no changes as just restarted medications. Primary team can explore with patient supports needed around medications, mental state and substance use plus or minus rehab referrals. Greater than 50% of the session was spent on counseling and/or coordination of care Reason for contiued inpatient stay Substantial Risk for: harm to self
[2020-10-16 15:34] VITALS: BP 126/77; PULSE 62
[2020-10-16] MEDS: cloNIDine HCL 0.1 MG TABLET PO ×2 (15:34→20:40)
[2020-10-16 19:46] VITALS: BP 112/64; PULSE 62; RESP 16; TEMP 37.1; O2SAT 94
[2020-10-16] MEDS: Mirtazapine 30 MG TABLET PO (20:37)
[2020-10-16] MEDS: Divalproex Sodium ER 500 MG TAB.ER.24H 1000 MG PO (20:38)
[2020-10-16 20:39] VITALS: BP 112/64; PULSE 62
[2020-10-16] MEDS: risperiDONE 1 MG TABLET PO (20:39)
[2020-10-16] MEDS: Prazosin HCL 1 MG CAPSULE 2 MG PO (20:39)
[2020-10-16 20:40] VITALS: BP 112/64; PULSE 62
[2020-10-17 06:00] VITALS: BP 100/58; PULSE 63; RESP 16; TEMP 35.5; O2SAT 96
[2020-10-17] MEDS: Gabapentin 400 MG CAPSULE PO ×3 (08:12→20:21)
[2020-10-17] MEDS: cloNIDine HCL 0.1 MG TABLET PO ×3 (08:12→20:24)
[2020-10-17] MEDS: Baclofen 10 MG TABLET PO ×3 (08:12→20:25)
[2020-10-17] MEDS: Nicotine Polacrilex 2 MG GUM 4 MG BUCCAL ×5 (08:13→18:02)
[2020-10-17] MEDS: Magnesium Hydrox/Alum Hydrox 30 ML ORAL.SUSP PO (09:39)
--- NOTE | 2020-10-17 09:59 | HO.PM.IMPN ---
Subjective Subjective Date of Service: 10/17/20 Interval History: Seen in follow-up for left elbow cellulitis, continue to note improvement but this morning after breakfast, vomitting, not having pain, and abdominal exam bening. Review of Systems Gen: no fever Resp: no sob, no cough CV: no chest, no WATTS, no leg edema GI: + n/v, no abd pain Neuro: No confusion MSK; redness and swelling is better at elbow area Physical Exam Vital Signs: Vital Signs: Last Vital Signs Temp 96 F L 10/17/20 06:00 Pulse 63 10/17/20 06:00 Resp 16 10/17/20 06:00 BP 100/58 L 10/17/20 06:00 Pulse Ox 96 10/17/20 06:00 Body Mass Index 34.0 Const: Other: General: AO X 3, no acute distress Resp: CTA bilateral CVS: S1,S2,RRR GI: +BS, NT, no distention, Skin: redness is better compare to yesterday Neuro: motor grossly intact Psych: appropriate affect Objective Data Current Medications Generic Name Dose Route Start Last Admin Trade Name Freq PRN Reason Stop Dose Admin Acetaminophen 650 mg 10/14/20 14:38 Acetaminophen 325 Mg Tablet PO Q6H PRN Headache/Pain Mild Scale (1-3) Al Hydroxide/Mg Hydroxide 30 ml 10/14/20 14:38 10/17/20 09:39 Magnesium Hydrox/Alum Hydrox 30 Ml Oral.Susp PO 30 ml Q6H PRN Administration Heartburn/Nausea Baclofen 10 mg 10/13/20 15:00 10/17/20 08:12 Baclofen 10 Mg Tablet PO 10 mg TID CORIE Administration Clonidine HCl 0.1 mg 10/16/20 15:00 10/17/20 08:12 Clonidine Hcl 0.1 Mg Tablet PO 0.1 mg TID CORIE Administration Protocol Divalproex Sodium 1,000 mg 10/16/20 21:00 10/16/20 20:38 Divalproex Sodium Er 500 Mg Tab.Er.24h PO 1,000 mg BEDTIME CORIE Administration Doxycycline Hyclate 100 mg 10/15/20 21:00 10/17/20 08:12 Doxycycline Hyclate 100 Mg Tablet PO 10/20/20 23:00 100 mg Q12H CORIE Administration Gabapentin 400 mg 10/13/20 15:00 10/17/20 08:12 Gabapentin 400 Mg Capsule PO 400 mg TID CORIE Administration Hydroxyzine HCl 25 mg 10/14/20 14:38 Hydroxyzine Hcl 25 Mg Tablet PO BEDTIME PRN Anxiety Magnesium Hydroxide 30 ml 10/14/20 14:38 Milk Of Magnesia 30 Ml Oral.Susp PO DAILY PRN Constipation Methadone HCl 130 mg 10/14/20 09:00 10/17/20 08:12 Methadone Hcl 1 Mg/0.1 Ml Oral.Conc PO 130 mg DAILY CORIE Administration Mirtazapine 30 mg 10/16/20 21:00 10/16/20 20:37 Mirtazapine 30 Mg Tablet PO 30 mg BEDTIME CORIE Administration Naproxen 500 mg 10/13/20 11:44 10/13/20 11:58 Naproxen 500 Mg Tablet PO 500 mg Q12H PRN Administration pain Nicotine Polacrilex 4 mg 10/15/20 13:34 10/17/20 08:13 Nicotine Polacrilex 2 Mg Gum BUCCAL 4 mg Q2H PRN Administration Nicotine Cravings Prazosin HCl 2 mg 10/16/20 21:00 10/16/20 20:39 Prazosin Hcl 1 Mg Capsule PO 2 mg BEDTIME CORIE Administration Protocol Risperidone 1 mg 10/13/20 21:00 10/16/20 20:39 Risperidone 1 Mg Tablet PO 1 mg BEDTIME CORIE Administration Trazodone HCl 50 mg 10/14/20 14:38 Trazodone Hcl 50 Mg Tablet PO BEDTIME PRN Insomnia Labs CBC & Chem 7: 10/12/20 20:12 10/13/20 01:47 Assessment and Plan (1) Cellulitis: Status: Acute Assessment and Plan: Redness of Left arm area --thre is no fluctuance and therefore doubt abscess, it is not warm, xray no foreign body, ultrasound no dvt, no abscess--overall improving. Continue Doxycyline. N/V without abdominal pain, exam bening, symptomatic treatment, observe if worse will image For Psychiatry issues, continue curent care,
--- NOTE | 2020-10-17 14:01 | HO.PSYCHPN ---
Subjective Subjective Date of Service: 10/17/20 Reason For Visit: Depression, substance use and suicidal thoughts Interim History: The patient reports feeling depressed, less suicidal. He has cellulitis and he is on atibiotics now. We discussed options regarding cocaine cravings. Mental Status Exam Mental Status Exam Patient Appearance: Disheveled Patient Orientation: Person, Place, Time and Situation Level of Consciousness: Awake Patient Behavior: Guarded Mood Description: Withdrawn Affect Description: Constricted Patient Cognition Impaired: No Ability to Follow Directions: Good Speech Pattern: Clear Memory Description: Intact Hallucinations: None Delusions: Not Present Thought Process: Distracted Thought Content: positive for Poverty of Content Diagnostics Vital Signs (24Hr): Vital Signs - 24 hr 10/16/20 15:34 10/16/20 19:46 10/16/20 20:39 Temperature 98.7 F Pulse Rate 62 62 62 Respiratory Rate 16 Blood Pressure 126/77 112/64 112/64 Pulse Oximetry 94 10/16/20 20:40 10/17/20 06:00 Temperature 96 F L Pulse Rate 62 63 Respiratory Rate 16 Blood Pressure 112/64 100/58 L Pulse Oximetry 96 Body Mass Index 34.0 Labs Results: 10/12/20 20:12 10/13/20 01:47 Imaging Radiology Impressions: ITS Impressions Venous Duplex 10/15/20 14:24 IMPRESSION: No DVT demonstrated in the left arm. Bruising at discoloration in the posterior and superior of antecubital fossa likely cellulitis or a small soft tissue hematoma. Elbow X-Ray 10/15/20 19:13 IMPRESSION: No radiopaque foreign body or soft tissue gas. Soft tissue swelling and reticulation of the subcutaneous fat of the medial proximal forearm. Medications Medications Current Medications Generic Name Dose Route Start Last Admin Trade Name Freq PRN Reason Stop Dose Admin Acetaminophen 650 mg 10/14/20 14:38 Acetaminophen 325 Mg Tablet PO Q6H PRN Headache/Pain Mild Scale (1-3) Al Hydroxide/Mg Hydroxide 30 ml 10/14/20 14:38 10/17/20 09:39 Magnesium Hydrox/Alum Hydrox 30 Ml Oral.Susp PO 30 ml Q6H PRN Administration Heartburn/Nausea Baclofen 10 mg 10/13/20 15:00 10/17/20 13:49 Baclofen 10 Mg Tablet PO 10 mg TID CORIE Administration Clonidine HCl 0.1 mg 10/16/20 15:00 10/17/20 13:49 Clonidine Hcl 0.1 Mg Tablet PO 0.1 mg TID CORIE Administration Protocol Divalproex Sodium 1,000 mg 10/16/20 21:00 10/16/20 20:38 Divalproex Sodium Er 500 Mg Tab.Er.24h PO 1,000 mg BEDTIME CORIE Administration Doxycycline Hyclate 100 mg 10/15/20 21:00 10/17/20 08:12 Doxycycline Hyclate 100 Mg Tablet PO 10/20/20 23:00 100 mg Q12H CORIE Administration Gabapentin 400 mg 10/13/20 15:00 10/17/20 13:49 Gabapentin 400 Mg Capsule PO 400 mg TID CORIE Administration Hydroxyzine HCl 25 mg 10/14/20 14:38 Hydroxyzine Hcl 25 Mg Tablet PO BEDTIME PRN Anxiety Magnesium Hydroxide 30 ml 10/14/20 14:38 Milk Of Magnesia 30 Ml Oral.Susp PO DAILY PRN Constipation Methadone HCl 130 mg 10/14/20 09:00 10/17/20 08:12 Methadone Hcl 1 Mg/0.1 Ml Oral.Conc PO 130 mg DAILY CORIE Administration Mirtazapine 30 mg 10/16/20 21:00 10/16/20 20:37 Mirtazapine 30 Mg Tablet PO 30 mg BEDTIME CORIE Administration Naproxen 500 mg 10/13/20 11:44 10/13/20 11:58 Naproxen 500 Mg Tablet PO 500 mg Q12H PRN Administration pain Nicotine Polacrilex 4 mg 10/15/20 13:34 10/17/20 13:49 Nicotine Polacrilex 2 Mg Gum BUCCAL 4 mg Q2H PRN Administration Nicotine Cravings Prazosin HCl 2 mg 10/16/20 21:00 10/16/20 20:39 Prazosin Hcl 1 Mg Capsule PO 2 mg BEDTIME CORIE Administration Protocol Risperidone 1 mg 10/13/20 21:00 10/16/20 20:39 Risperidone 1 Mg Tablet PO 1 mg BEDTIME CORIE Administration Trazodone HCl 50 mg 10/14/20 14:38 Trazodone Hcl 50 Mg Tablet PO BEDTIME PRN Insomnia Allergies Allergies Allergy/AdvReac Type Severity Reaction Status Date / Time shellfish derived Allergy Severe ANAPHAYLAXI Verified 08/04/20 22:58 [SHELLFISH DERIVED] A Assessment & Plan Assessment & Plan (1) Cellulitis: Status: Acute Code(s): L03.90 - Cellulitis, unspecified Assessment and Plan: Redness of Left arm area --thre is no fluctuance and therefore doubt abscess, it is not warm, xray no foreign body, ultrasound no dvt, no abscess--overall improving. Continue Doxycyline. N/V without abdominal pain, exam bening, symptomatic treatment, observe if worse will image For Psychiatry issues, continue curent care. Add Topamax 25 mg po bid. Greater than 50% of the session was spent on counseling and/or coordination of care Reason for contiued inpatient stay Substantial Risk for: harm to self, inability to function, rapid decompensation and med/psych decompensation
[2020-10-17] MEDS: NaPROXEN 500 MG TABLET PO (16:03)
[2020-10-17 18:00] VITALS: BP 108/55; PULSE 71; TEMP 36.7
[2020-10-17] MEDS: Divalproex Sodium ER 500 MG TAB.ER.24H 1000 MG PO (20:21)
[2020-10-17 20:23] VITALS: BP 120/75; PULSE 75
[2020-10-17] MEDS: Prazosin HCL 1 MG CAPSULE 2 MG PO (20:23)
[2020-10-17 20:24] VITALS: BP 120/75; PULSE 75
[2020-10-17] MEDS: Mirtazapine 30 MG TABLET PO (20:25)
[2020-10-17] MEDS: risperiDONE 1 MG TABLET PO (20:25)
[2020-10-17] MEDS: Topiramate 25 MG TABLET PO (20:25)
[2020-10-18 06:00] VITALS: BP 91/52; PULSE 58; RESP 16; TEMP 36.4; O2SAT 97
--- NOTE | 2020-10-18 08:50 | HO.PM.IMPN ---
Subjective Subjective Date of Service: 10/18/20 Interval History: Seen in follow-up for left elbow cellulitis, he feels better, redness at the elbow is better. Review of Systems Gen: no fever Resp: no sob, no cough CV: no chest, no WATTS, no leg edema GI: + n/v, no abd pain Neuro: No confusion MSK; redness and swelling is better at elbow area Physical Exam Vital Signs: Vital Signs: Last Vital Signs Temp 98.0 F 10/17/20 18:00 Pulse 75 10/17/20 20:24 Resp 16 10/17/20 06:00 BP 120/75 10/17/20 20:24 Pulse Ox 96 10/17/20 06:00 Body Mass Index 34.0 Const: Other: General: AO X 3, no acute distress Resp: CTA bilateral CVS: S1,S2,RRR GI: +BS, NT, no distention, Skin: redness is better compare to yesterday Neuro: motor grossly intact Psych: appropriate affect Objective Data Current Medications Generic Name Dose Route Start Last Admin Trade Name Esha PRN Reason Stop Dose Admin Acetaminophen 650 mg 10/14/20 14:38 Acetaminophen 325 Mg Tablet PO Q6H PRN Headache/Pain Mild Scale (1-3) Al Hydroxide/Mg Hydroxide 30 ml 10/14/20 14:38 10/17/20 09:39 Magnesium Hydrox/Alum Hydrox 30 Ml Oral.Susp PO 30 ml Q6H PRN Administration Heartburn/Nausea Baclofen 10 mg 10/13/20 15:00 10/17/20 20:25 Baclofen 10 Mg Tablet PO 10 mg TID CORIE Administration Clonidine HCl 0.1 mg 10/16/20 15:00 10/17/20 20:24 Clonidine Hcl 0.1 Mg Tablet PO 0.1 mg TID CORIE Administration Protocol Divalproex Sodium 1,000 mg 10/16/20 21:00 10/17/20 20:21 Divalproex Sodium Er 500 Mg Tab.Er.24h PO 1,000 mg BEDTIME CORIE Administration Doxycycline Hyclate 100 mg 10/15/20 21:00 10/17/20 20:22 Doxycycline Hyclate 100 Mg Tablet PO 10/20/20 23:00 100 mg Q12H CORIE Administration Gabapentin 400 mg 10/13/20 15:00 10/17/20 20:21 Gabapentin 400 Mg Capsule PO 400 mg TID CORIE Administration Hydroxyzine HCl 25 mg 10/14/20 14:38 Hydroxyzine Hcl 25 Mg Tablet PO BEDTIME PRN Anxiety Magnesium Hydroxide 30 ml 10/14/20 14:38 Milk Of Magnesia 30 Ml Oral.Susp PO DAILY PRN Constipation Methadone HCl 130 mg 10/14/20 09:00 10/17/20 08:12 Methadone Hcl 1 Mg/0.1 Ml Oral.Conc PO 130 mg DAILY CORIE Administration Mirtazapine 30 mg 10/16/20 21:00 10/17/20 20:25 Mirtazapine 30 Mg Tablet PO 30 mg BEDTIME CORIE Administration Naproxen 500 mg 10/13/20 11:44 10/17/20 16:03 Naproxen 500 Mg Tablet PO 500 mg Q12H PRN Administration pain Nicotine Polacrilex 4 mg 10/15/20 13:34 10/17/20 18:02 Nicotine Polacrilex 2 Mg Gum BUCCAL 4 mg Q2H PRN Administration Nicotine Cravings Prazosin HCl 2 mg 10/16/20 21:00 10/17/20 20:23 Prazosin Hcl 1 Mg Capsule PO 2 mg BEDTIME CORIE Administration Protocol Risperidone 1 mg 10/13/20 21:00 10/17/20 20:25 Risperidone 1 Mg Tablet PO 1 mg BEDTIME CORIE Administration Topiramate 25 mg 10/17/20 21:00 10/17/20 20:25 Topiramate 25 Mg Tablet PO 25 mg BID CORIE Administration Trazodone HCl 50 mg 10/14/20 14:38 Trazodone Hcl 50 Mg Tablet PO BEDTIME PRN Insomnia Labs CBC & Chem 7: 10/12/20 20:12 10/13/20 01:47 Assessment and Plan (1) Cellulitis: Status: Acute Assessment and Plan: Redness of Left arm area --thre is no fluctuance and therefore doubt abscess, it is not warm, xray no foreign body, ultrasound no dvt, no abscess--overall improving. Continue Doxycyline and finishe a 7 day course N/V without abdominal pain, exam bening, symptomatic treatment--this has resolved For Psychiatry issues, continue curent care, Singning off, contact us for batsheva new questions
[2020-10-18] MEDS: Baclofen 10 MG TABLET PO ×3 (09:00→20:18)
[2020-10-18] MEDS: Gabapentin 400 MG CAPSULE PO ×3 (09:00→20:17)
[2020-10-18] MEDS: Topiramate 25 MG TABLET PO ×2 (09:00→20:17)
[2020-10-18] MEDS: Nicotine Polacrilex 2 MG GUM 4 MG BUCCAL ×4 (09:29→18:48)
[2020-10-18 09:44] LABS: Valproate 58.1 mcg/mL (50.0-100.0)
[2020-10-18 10:01] VITALS: BP 91/52; PULSE 58
--- NOTE | 2020-10-18 13:43 | HO.PSYCHPN ---
Subjective Subjective Date of Service: 10/18/20 Reason For Visit: Depression, substance use and suicidal thoughts Subjective Notes: Conditional Voluntary Interim History: The patient reported that he has just found out that her sister of a car accident and he needed to go to get a passport to go to [place] . He adamantly denied suicidal ideation or dysphoria. Review of Systems Acute medical concerns: No Medical Review of Systems: unchanged Mental Status Exam Mental Status Exam Patient Appearance: Disheveled Patient Orientation: Person, Place, Time and Situation Level of Consciousness: Awake Patient Behavior: Appropriate Mood Description: Calm Affect Description: Constricted Patient Cognition Impaired: No Ability to Follow Directions: Good Speech Pattern: Clear Memory Description: Intact Hallucinations: None Delusions: Not Present Thought Process: Linear Thought Content: positive for Intact and positive for Circumstantial Judgement: Fair Diagnostics Vital Signs (24Hr): Vital Signs - 24 hr 10/17/20 18:00 10/17/20 20:23 10/17/20 20:24 Temperature 98.0 F Pulse Rate 71 75 75 Respiratory Rate Blood Pressure 108/55 L 120/75 120/75 Pulse Oximetry 10/18/20 06:00 10/18/20 10:01 Temperature 97.6 F Pulse Rate 58 58 Respiratory Rate 16 Blood Pressure 91/52 L 91/52 L Pulse Oximetry 97 Body Mass Index 34.0 Labs Results: 10/12/20 20:12 10/13/20 01:47 Labs: Laboratory Results - last 48 hr 10/18/20 08:54 Valproic Acid 58.1 Imaging Radiology Impressions: ITS Impressions Venous Duplex 10/15/20 14:24 IMPRESSION: No DVT demonstrated in the left arm. Bruising at discoloration in the posterior and superior of antecubital fossa likely cellulitis or a small soft tissue hematoma. Elbow X-Ray 10/15/20 19:13 IMPRESSION: No radiopaque foreign body or soft tissue gas. Soft tissue swelling and reticulation of the subcutaneous fat of the medial proximal forearm. Medications Medications Current Medications Generic Name Dose Route Start Last Admin Trade Name Freq PRN Reason Stop Dose Admin Acetaminophen 650 mg 10/14/20 14:38 Acetaminophen 325 Mg Tablet PO Q6H PRN Headache/Pain Mild Scale (1-3) Al Hydroxide/Mg Hydroxide 30 ml 10/14/20 14:38 10/17/20 09:39 Magnesium Hydrox/Alum Hydrox 30 Ml Oral.Susp PO 30 ml Q6H PRN Administration Heartburn/Nausea Baclofen 10 mg 10/13/20 15:00 10/18/20 09:00 Baclofen 10 Mg Tablet PO 10 mg TID CORIE Administration Clonidine HCl 0.1 mg 10/16/20 15:00 10/18/20 10:01 Clonidine Hcl 0.1 Mg Tablet PO Not Given TID CORIE Protocol Divalproex Sodium 1,000 mg 10/16/20 21:00 10/17/20 20:21 Divalproex Sodium Er 500 Mg Tab.Er.24h PO 1,000 mg BEDTIME CORIE Administration Doxycycline Hyclate 100 mg 10/15/20 21:00 10/18/20 09:00 Doxycycline Hyclate 100 Mg Tablet PO 10/22/20 23:00 100 mg Q12H CORIE Administration Gabapentin 400 mg 10/13/20 15:00 10/18/20 09:00 Gabapentin 400 Mg Capsule PO 400 mg TID CORIE Administration Hydroxyzine HCl 25 mg 10/14/20 14:38 Hydroxyzine Hcl 25 Mg Tablet PO BEDTIME PRN Anxiety Magnesium Hydroxide 30 ml 10/14/20 14:38 Milk Of Magnesia 30 Ml Oral.Susp PO DAILY PRN Constipation Methadone HCl 130 mg 10/14/20 09:00 10/18/20 09:00 Methadone Hcl 1 Mg/0.1 Ml Oral.Conc PO 130 mg DAILY CORIE Administration Mirtazapine 30 mg 10/16/20 21:00 10/17/20 20:25 Mirtazapine 30 Mg Tablet PO 30 mg BEDTIME CORIE Administration Naproxen 500 mg 10/13/20 11:44 10/17/20 16:03 Naproxen 500 Mg Tablet PO 500 mg Q12H PRN Administration pain Nicotine Polacrilex 4 mg 10/15/20 13:34 10/18/20 13:12 Nicotine Polacrilex 2 Mg Gum BUCCAL 4 mg Q2H PRN Administration Nicotine Cravings Prazosin HCl 2 mg 10/16/20 21:00 10/17/20 20:23 Prazosin Hcl 1 Mg Capsule PO 2 mg BEDTIME CORIE Administration Protocol Risperidone 1 mg 10/13/20 21:00 10/17/20 20:25 Risperidone 1 Mg Tablet PO 1 mg BEDTIME CORIE Administration Topiramate 25 mg 10/17/20 21:00 10/18/20 09:00 Topiramate 25 Mg Tablet PO 25 mg BID CORIE Administration Trazodone HCl 50 mg 10/14/20 14:38 Trazodone Hcl 50 Mg Tablet PO BEDTIME PRN Insomnia Allergies Allergies Allergy/AdvReac Type Severity Reaction Status Date / Time shellfish derived Allergy Severe ANAPHAYLAXI Verified 08/04/20 22:58 [SHELLFISH DERIVED] A Assessment & Plan Assessment & Plan (1) Cellulitis: Status: Acute Code(s): L03.90 - Cellulitis, unspecified Assessment and Plan: Redness of Left arm area --thre is no fluctuance and therefore doubt abscess, it is not warm, xray no foreign body, ultrasound no dvt, no abscess--overall improving. Continue Doxycyline and finishe a 7 day course N/V without abdominal pain, exam bening, symptomatic treatment--this has resolved For Psychiatry issues, continue curent care, Discussed with the team for discharge. (2) Opioid use disorder, mild, in early remission, on maintenance therapy: Status: Acute Code(s): F11.11 - Opioid abuse, in remission (3) Cocaine use disorder, moderate, dependence: Status: Acute Code(s): F14.20 - Cocaine dependence, uncomplicated (4) PTSD (post-traumatic stress disorder): Status: Acute Code(s): F43.10 - Post-traumatic stress disorder, unspecified (5) MDD (major depressive disorder), recurrent episode, severe: Status: Acute Code(s): F33.2 - Major depressive disorder, recurrent severe without psychotic features Greater than 50% of the session was spent on counseling and/or coordination of care Reason for contiued inpatient stay Substantial Risk for: inability to function, rapid decompensation and med/psych decompensation
[2020-10-18 14:16] VITALS: BP 121/62; PULSE 67
[2020-10-18] MEDS: cloNIDine HCL 0.1 MG TABLET PO ×2 (14:16→20:17)
[2020-10-18 18:00] VITALS: BP 123/60; PULSE 64; TEMP 36.5; O2SAT 98
--- NOTE | 2020-10-18 18:37 | MHC.RECOVSUP ---
? Reason for consult Recovery Support o Current location: [place] [id number] o <del>Identified</del> <del>substance</del> <del>use</del> <del>concern:</del> <del>-</del> <del>Overdose</del> <del>-</del> <del>Withdrawal</del> <del>-</del> <del>Seeking</del> <del>ATS</del> <del>(detox)</del> <del>-</del> <del>Support</del> ? Intervention: <del>o</del> <del>ATS</del> <del>bed</del> <del>search</del> <del>started/completed/in</del> <del>process</del> <del>o</del> <del>MAT</del> <del>started</del> <del>or</del> <del>to</del> <del>be</del> <del>started</del> o Community resources provided <del>o</del> Harm reduction discussion ? Plan: <del>o</del> <del>Referral</del> <del>to</del> <del>[facility]</del> <del>o</del> <del>Bed</del> <del>search</del> <del>in</del> <del>progress</del> <del>to</del> <del>o</del> <del>Follow</del> <del>up</del> <del>tomorrow</del> <del>o</del> <del>Patient</del> <del>awaiting</del> <del>crisis</del> <del>evaluation</del> o Patient to follow up with [facility] after discharge ? Additional information: Patient is seeking support in his recovery... Patient stated that he was in recovery before and that he can do it again... I supplied patient with Recovery Information and he stated that he will check it out when he gets [facility]
[2020-10-18 20:16] VITALS: BP 123/60; PULSE 64
[2020-10-18] MEDS: Prazosin HCL 1 MG CAPSULE 2 MG PO (20:16)
[2020-10-18 20:17] VITALS: BP 123/60; PULSE 64
[2020-10-18] MEDS: Divalproex Sodium ER 500 MG TAB.ER.24H 1000 MG PO (20:17)
[2020-10-18] MEDS: Mirtazapine 30 MG TABLET PO (20:17)
[2020-10-18] MEDS: risperiDONE 1 MG TABLET PO (20:18)
[2020-10-19] MEDS: Gabapentin 400 MG CAPSULE PO (08:43)
[2020-10-19] MEDS: Baclofen 10 MG TABLET PO (08:43)
[2020-10-19 08:44] VITALS: BP 124/68; PULSE 57
[2020-10-19] MEDS: Topiramate 25 MG TABLET PO (08:44)
[2020-10-19] MEDS: cloNIDine HCL 0.1 MG TABLET PO (08:44)
[2020-10-19] MEDS: Nicotine Polacrilex 2 MG GUM 4 MG BUCCAL (08:51)
[2020-10-19 08:55] VITALS: BP 124/68; PULSE 57; RESP 18; O2SAT 99
--- NOTE | 2020-10-19 12:27 | PM.PSYDC ---
DS: Providers Provider Date of Service: 10/19/20 Date of admission: 10/14/20 14:39 Date of discharge: 10/19/20 Primary care physician: Unknown Physician Attending physician on admission: Victor M Raman Consults: 10/15/20 07:43 Consult to Hospitalist Routine Consulting Provider: Hospitalist Reason For Exam: drug injection site swollen, warm, red Attending physician on discharge: Victor M Raman DS: Diagnosis Discharge Diagnosis (1) Cellulitis: Status: Acute (2) MDD (major depressive disorder), recurrent episode, severe: Status: Acute (3) PTSD (post-traumatic stress disorder): Status: Acute (4) Cocaine use disorder, moderate, dependence: Status: Acute (5) Opioid use disorder, mild, in early remission, on maintenance therapy: Status: Acute DS: Medications Discharge Medications Home Medications: Home Medications Medication Instructions Recorded Confirmed methadone 135 mg PO DAILY 08/03/20 10/14/20 baclofen 10 mg PO TID PRN 09/09/20 09/09/20 tamsulosin 0.4 mg PO DAILY 09/09/20 09/09/20 Previous Rx's Medication Instructions Recorded gabapentin 400 mg PO TID 15 Days #45 cap 08/15/20 atorvastatin 10 mg PO BEDTIME 14 Days #14 tab 09/19/20 baclofen 10 mg PO TID PRN 14 Days #42 tab 09/19/20 clonidine HCl 0.1 mg PO TID PRN 14 Days #42 tab 09/19/20 divalproex 1,000 mg PO BEDTIME 14 Days #28 tab 09/19/20 docusate sodium 100 mg PO BID 14 Days #28 cap 09/19/20 duloxetine 90 mg PO DAILY 14 Days #42 cap 09/19/20 fluoxetine [Prozac] 20 mg PO DAILY 14 Days #14 cap 09/19/20 gabapentin 400 mg PO TID 14 Days #42 cap 09/19/20 mirtazapine [Remeron] 30 mg PO BEDTIME 14 Days #14 tab 09/19/20 naproxen 500 mg PO 0900,2100 14 Days #28 tab 09/19/20 nystatin 1 appl TOPICAL BID 14 Days #1 g 09/19/20 prazosin 2 mg PO BEDTIME #14 cap 09/19/20 risperidone 1 mg PO BEDTIME 14 Days #14 tab 09/19/20 tamsulosin 0.4 mg PO DAILY 14 Days #14 cap 09/19/20 trazodone 50 mg PO BEDTIME PRN 14 Days #14 09/19/20 tab Discharge Plan Discharge Patient Disposition: Home, Self-Care Discharge Diagnosis: Polysubstance dependence Mood disorder Referrals: Therapy & Psychiatry [Other] (Referral submitted, they will call you with appointments. Please follow up by Saturday if you have not heard from the intake department) Physician,Unknown [Primary Care Provider] - 1 Week Discharge Medications: Continued trazodone 50 mg Tablet 50 mg PO BEDTIME PRN (Reason: Insomnia) 14 Days Qty: 14 RF: 0 atorvastatin 10 mg Tablet 10 mg PO BEDTIME 14 Days Qty: 14 RF: 0 gabapentin 400 mg Capsule 400 mg PO TID 14 Days Qty: 42 RF: 0 baclofen 10 mg Tablet 10 mg PO TID PRN (Reason: Back Pain) 14 Days Qty: 42 RF: 0 mirtazapine [Remeron] 30 mg tablet 30 mg PO BEDTIME 14 Days Qty: 14 RF: 0 divalproex 500 mg Tablet Extended Release 24 Hr 1,000 mg PO BEDTIME 14 Days Qty: 28 RF: 0 fluoxetine [Prozac] 20 mg capsule 20 mg PO DAILY 14 Days Qty: 14 RF: 0 risperidone 1 mg Tablet 1 mg PO BEDTIME 14 Days Qty: 14 RF: 0 prazosin 2 mg capsule 2 mg PO BEDTIME 14 Days Qty: 14 RF: 0 duloxetine 30 mg Capsule,Delayed Release(Dr/Ec) 90 mg PO DAILY 14 Days Qty: 42 RF: 0 methadone 10 mg/mL Concentrate 135 mg PO DAILY RF: 0 tamsulosin 0.4 mg Capsule 0.4 mg PO DAILY 14 Days Qty: 14 RF: 0 naproxen 500 mg Tablet 500 mg PO 0900,2100 14 Days Qty: 28 RF: 0 Discontinued baclofen 10 mg tablet 10 mg PO TID PRN (Reason: Back Pain) RF: 0 clonidine HCl 0.1 mg Tablet 0.1 mg PO TID PRN (Reason: Anxiety) 14 Days Qty: 42 RF: 0 tamsulosin 0.4 mg Capsule 0.4 mg PO DAILY 14 Days Qty: 14 RF: 0 nystatin 100,000 unit/gram Ointment 1 appl topical BID 14 Days Qty: 1 RF: 0 docusate sodium 100 mg Capsule 100 mg PO BID 14 Days Qty: 28 RF: 0 gabapentin 400 mg Capsule 400 mg PO TID 15 Days Qty: 45 RF: 0 Discharge Orders: Discharge Order (Routine); Ordered 10/19/20 Ordered By: Victor M Raman Diet: advance to usual diet Activity on Discharge: As tolerated Stand Alone Forms: Patient Portal Discharge page Care Plan Goals: Continue as per protocol as per [facility] Concerns: F/U with PCP Plan of Treatment: Continue methadone clinic and outpatient providers Assessment: Adult male, very well know with mood and polysubstance dependece with frequent admissions for suicidality Mental Status Exam Mental Status Exam Patient Appearance: Well Grooomed Patient Orientation: Person, Place, Time and Situation Level of Consciousness: Awake Patient Behavior: Appropriate Mood Description: Calm Affect Description: Appropriate Patient Cognition Impaired: No Ability to Follow Directions: Good Speech Pattern: Clear Memory Description: Intact Hallucinations: None Delusions: Not Present Thought Process: Intact Thought Content: positive for Intact Judgement: Fair Data Data Completed and Pending Completed studies during hospitalization [Text1]: 10/12/20 10/12/20 10/12/20 19:22 20:05 20:05 WBC RBC Hgb Hct MCV MCH MCHC RDW Plt Count MPV Immature Gran % (Auto) Neut % (Auto) Lymph % (Auto) [place] % (Auto) Eos % (Auto) Baso % (Auto) Lymph # (Auto) [place] # (Auto) Eos # (Auto) Baso # (Auto) Abs Immat Gran (auto) Absolute Neuts (auto) Absolute Nucleated RBC Nucleated RBC % (auto) Sodium Potassium Chloride Carbon Dioxide Anion Gap BUN Creatinine Estim Creat Clear Calc Estimated GFR Random Glucose Calcium Total Bilirubin Direct Bilirubin AST ALT Alkaline Phosphatase Total Protein Albumin Urine Color DARK YELLOW Urine Appearance HAZY Urine pH 6.0 Ur Specific [place] >= 1.030 H Urine Protein 1+ H Urine Glucose (UA) NEG Urine Ketones 15 Urine Blood NEG Urine Nitrite NEG Ur Leukocyte Esterase NEG Urine RBC 1-4 Urine WBC 0 Ur Squamous Epith Cells TRACE Urine Bacteria TRACE Urine Mucus TRACE Salicylates Urine Opiates Screen POSITIVE H Acetaminophen Ur Barbiturates Screen Not Detected Valproic Acid Ur Phencyclidine Scrn Not Detected Ur Amphetamines Screen Not Detected U Benzodiazepines Scrn Not Detected Urine Cocaine Screen POSITIVE H U Marijuana (THC) Screen POSITIVE H Ethyl Alcohol COVID-19 (JANKI) Negative COVID-19 Clin Com See Note 10/12/20 10/12/20 10/12/20 20:12 20:12 20:12 WBC 11.0 H RBC 5.06 Hgb 13.8 L Hct 42.1 MCV 83.2 MCH 27.3 MCHC 32.8 RDW 13.5 Plt Count 255 MPV 9.5 Immature Gran % (Auto) 0.5 H Neut % (Auto) 74.4 H Lymph % (Auto) 13.7 L [place] % (Auto) 11.1 H Eos % (Auto) 0.1 Baso % (Auto) 0.2 Lymph # (Auto) 1.5 [place] # (Auto) 1.2 Eos # (Auto) 0.0 Baso # (Auto) 0.0 Abs Immat Gran (auto) 0.06 H Absolute Neuts (auto) 8.2 Absolute Nucleated RBC 0.000 Nucleated RBC % (auto) 0.0 Sodium 140 Potassium 4.2 Chloride 101 Carbon Dioxide 26 Anion Gap 17 BUN 27 H D Creatinine 2.23 H Estim Creat Clear Calc 54.5 Estimated GFR 34 Random Glucose 91 Calcium 10.5 H D Total Bilirubin Direct Bilirubin AST ALT Alkaline Phosphatase Total Protein Albumin Urine Color Urine Appearance Urine pH Ur Specific [place] Urine Protein Urine Glucose (UA) Urine Ketones Urine Blood Urine Nitrite Ur Leukocyte Esterase Urine RBC Urine WBC Ur Squamous Epith Cells Urine Bacteria Urine Mucus Salicylates Urine Opiates Screen Acetaminophen Ur Barbiturates Screen Valproic Acid Ur Phencyclidine Scrn Ur Amphetamines Screen U Benzodiazepines Scrn Urine Cocaine Screen U Marijuana (THC) Screen Ethyl Alcohol < 10 COVID-19 (JANKI) COVID-19 Clin Com 10/12/20 10/13/20 10/18/20 20:12 01:47 08:54 WBC RBC Hgb Hct MCV MCH MCHC RDW Plt Count MPV Immature Gran % (Auto) Neut % (Auto) Lymph % (Auto) [place] % (Auto) Eos % (Auto) Baso % (Auto) Lymph # (Auto) [place] # (Auto) Eos # (Auto) Baso # (Auto) Abs Immat Gran (auto) Absolute Neuts (auto) Absolute Nucleated RBC Nucleated RBC % (auto) Sodium 142 Potassium 3.8 Chloride 107 Carbon Dioxide 28 Anion Gap 11 L BUN 25 H Creatinine 1.29 Estim Creat Clear Calc 94.2 Estimated GFR > 60 Random Glucose 126 H D Calcium 8.8 D Total Bilirubin 0.5 0.4 Direct Bilirubin 0.3 AST 41 H 32 ALT 33 24 Alkaline Phosphatase 153 H D 125 H Total Protein 8.5 H 6.8 Albumin 4.9 4.0 Urine Color Urine Appearance Urine pH Ur Specific [place] Urine Protein Urine Glucose (UA) Urine Ketones Urine Blood Urine Nitrite Ur Leukocyte Esterase Urine RBC Urine WBC Ur Squamous Epith Cells Urine Bacteria Urine Mucus Salicylates < 5.0 L Urine Opiates Screen Acetaminophen < 1 Ur Barbiturates Screen Valproic Acid 58.1 Ur Phencyclidine Scrn Ur Amphetamines Screen U Benzodiazepines Scrn Urine Cocaine Screen U Marijuana (THC) Screen Ethyl Alcohol COVID-19 (JANKI) COVID-19 Clin Com Imaging Diagnostic Imaging Impressions Venous Duplex 10/15/20 14:24 IMPRESSION: No DVT demonstrated in the left arm. Bruising at discoloration in the posterior and superior of antecubital fossa likely cellulitis or a small soft tissue hematoma. Elbow X-Ray 10/15/20 19:13 IMPRESSION: No radiopaque foreign body or soft tissue gas. Soft tissue swelling and reticulation of the subcutaneous fat of the medial proximal forearm. DS: Summary Hospital Course Hospital Course: The patient was initially admitted after he alleged had suicidal thoughts and overdose on heroine and cocaine, as per crisis asssesment due to recent of his mother but on intake he denied it. He was restarted onhis regular medications and he was mostly secclussive, coming of drugs. No evidence of psychosis or mood lability. The day before of the discharge, he claimed that his sister in [place], and he needed to have his passport to travel and he adamantly denied suicidal or psychotic symptoms Time spent discussing smoking cessation with patient: 3 to 10 minutes Status at Discharge Functional status at discharge: independent ambulation Overall status at discharge: patient is back to baseline Time Spent with Patient Time attestation: Total time spent providing and/or coordinating discharge services: Time spent: Less than 30 minutes
--- NOTE | 2020-10-19 15:13 | PC.NURSE ---
Mr Cook is alert, fully oriented, pleasant and cooperative with discharge process. He denies ideation, plan or intent to harm self or others. He denies perceptual disturbance of any kind. He denies current anxiety. He denies current physical complaint besides unchanged back pain. He confirms plan to follow through with [facility] for methadone maintenance. Patient confirms plan to follow up with PCP at [facility].
== END 2020-10-19 13:35 | disposition home or self-care (01) | DRG 751 ==
LOC: HO.ED 10-14 14:57 → HO.PM5 10-14 15:06 → HO.PADLT16 10-14 15:12
PROVIDERS: Physician Assistant; Admitting Provider Psychiatry & Neurology Psychiatry; Emergency Provider Emergency Medicine Emergency Medical Services; Visit Provider Psychiatry & Neurology Psychiatry
DX: F33.2 Major depressive disorder, recurrent severe without psychotic features (principal); R45.851 Suicidal ideations; F11.20 Opioid dependence, uncomplicated; F14.20 Cocaine dependence, uncomplicated; F43.10 Post-traumatic stress disorder, unspecified; N40.0 Benign prostatic hyperplasia without lower urinary tract symptoms; Z20.822 Contact with and (suspected) exposure to COVID-19; L03.114 Cellulitis of left upper limb; Z91.5 Personal history of self-harm; F17.210 Nicotine dependence, cigarettes, uncomplicated; D64.9 Anemia, unspecified; E78.5 Hyperlipidemia, unspecified; Z71.6 Tobacco abuse counseling; Z79.899 Other long term (current) drug therapy
CPT/HCPCS: 36415; 73080; 80048; 80053; 80076; 80143; 80164; 80179; 80307; 81001; 82077; 85025; 87635; 93005; 93971; 99285

== ENCOUNTER 2020-11-02 16:50 | Inpatient (IN) | payer OTHER, MEDICAID, SELFPAY ==
--- NOTE | 2020-11-02 | ECG_ITS ---
Test Reason : MED CLEARANCE Blood Pressure : / mmHG Vent. Rate : 065 BPM Atrial Rate : 065 BPM P-R Int : 176 ms QRS Dur : 092 ms QT Int : 460 ms P-R-T Axes : 063 058 057 degrees QTc Int : 478 ms Poor data quality, interpretation may be adversely affected Sinus rhythm with Premature supraventricular complexes and Premature ventricular complexes or Fusion complexes Possible Left atrial enlargement Borderline ECG When compared with ECG of 12-OCT-2020 19:27, Fusion complexes are now Present Premature ventricular complexes are now Present Premature supraventricular complexes are now Present QT has shortened Referred By: Maritza Flower Electronically Signed By:
[2020-11-02 17:04] VITALS: BP 116/63; PULSE 76; RESP 18; TEMP 36.7; O2SAT 95; BMI 32.5
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
[2020-11-02 18:00] VITALS: BP 116/73; PULSE 75; RESP 18; TEMP 35.6; O2SAT 98
[2020-11-02] MEDS: cephALEXin 500 MG CAPSULE PO ×2 (19:04→21:56)
[2020-11-02 19:05] LABS: MANUAL DIFF FLAG NO
[2020-11-02 19:10] LABS: Basophils Percent Auto 0.1 % (0-2); Eosinophils Percent Auto 0.1 % (0-4); Hematocrit 40.2 % (42-52); Hemoglobin 12.9 g/dl (14.0-18.0); Imm Gran Abs Auto 0.05 X10*3/uL (0.00-0.03); Imm Gran Pct Auto 0.6 % (0.0-0.4); Lymphocytes Absolute Auto 1.9 X10*3/uL (1.2-4.9); Mean Corpuscular HGB Conc 32.1 g/dl (31.0-36.0); Mean Corpuscular Hemoglobin 26.7 pg (27.0-33.0); Mean Corpuscular Volume 83.2 fL (80-98); Mean Platelet Volume 9.4 fL (9.4-12.4); Monocytes Absolute Auto 1.2 X10*3/uL (0.1-1.2); Monocytes Percent Auto 13.9 % (2-11); Neutrophils Absolute Auto 5.5 X10*3/uL (2.0-8.3); Neutrophils Percent Auto 63.3 % (45-73); Platelet Count 253 X10*3/uL (160-400); Red Blood Count 4.83 X10*6/uL (4.60-5.80); Red Cell Distribution Width 13.9 % (11.0-16.0); White Blood Count 8.7 X10*3/uL (4.8-10.8)
[2020-11-02 19:48] LABS: Valproate 3.7 mcg/mL (50.0-100.0)
[2020-11-02 19:57] LABS: COVID-19 Test Negative (Negative)
[2020-11-02 20:18] LABS: Alanine Aminotransferase 63 U/L (0-40); Albumin Level 4.7 g/dL (3.5-5.0); Alkaline Phosphatase 116 U/L (39-117); Anion Gap 15 (12-20); Aspartate Amino Transferase 191 U/L (5-37); Bilirubin Direct 0.2 mg/dL (0.0-0.5); Bilirubin Total 0.4 mg/dL (0.0-1.0); Blood Urea Nitrogen 29 mg/dL (9-16); Calcium 9.8 mg/dL (8.4-10.2); Carbon Dioxide 26 mmol/L (22-29); Chloride 100 mmol/L (96-108); Creatinine Clr Calc Pharmacy 91.4; Estimated Glomerular Filt Rate > 60; Glucose Random 93 mg/dL (60-115); Potassium 4.9 mmol/L (3.3-5.1); Sodium 136 mmol/L (135-145); Total Protein 8.1 g/dL (6.5-8.0)
[2020-11-02] MEDS: Atorvastatin Calcium 10 MG TABLET PO (22:26)
[2020-11-02] MEDS: Gabapentin 400 MG CAPSULE PO (22:26)
[2020-11-02] MEDS: risperiDONE 1 MG TABLET PO (22:26)
[2020-11-02] MEDS: Mirtazapine 30 MG TABLET PO (22:26)
[2020-11-02] MEDS: Divalproex Sodium ER 500 MG TAB.ER.24H 1000 MG PO (22:26)
[2020-11-02] MEDS: Baclofen 10 MG TABLET PO (22:26)
[2020-11-02] MEDS: NaPROXEN 500 MG TABLET PO (22:30)
--- NOTE | 2020-11-02 22:30 | PC.NURSE ---
Patient compliant with his HS PO medication, calm and quiet, [facility] referral completed via smart sheet, called and spoke with Conor, confirmed receipt of referral, notified no clinician available for tonight, VSS, will continue to monitor.
[2020-11-02 22:38] VITALS: BP 116/71; PULSE 61
[2020-11-02] MEDS: Prazosin HCL 1 MG CAPSULE 2 MG PO (22:38)
[2020-11-03 00:46] LABS: Amphetamine Screen Urine Not Detected (Not Detect); Barbiturates, Urine Not Detected (Not Detect); Benzodiazepines Screen Urine Not Detected (Not Detect); Cannabinoid Screen Urine Not Detected (Not Detect); Cocaine Screen Urine POSITIVE (Not Detect); Opiate Screen Urine POSITIVE (Not Detect); Phencyclidine Screen Urine Not Detected (Not Detect)
[2020-11-03 05:13] VITALS: BP 120/70; PULSE 64; RESP 16; TEMP 36.7; O2SAT 98
--- NOTE | 2020-11-03 06:21 | PC.NURSE ---
Patient slept through the night, no distress observed/reported, respiration +/=/non-labored bilaterally, patient is awaiting to be seen by [facility], will continue to monitor.
--- NOTE | 2020-11-03 06:45 | PC.NURSE ---
[facility] called at [phone]/spoke with Conrard/verified dose, patient takes 130 mg of Methadone, last administration was 10/30/20 at 0945, provider notified/in house pharmacy faxed/incoming RN made aware.
--- NOTE | 2020-11-03 07:09 | PC.NURSE ---
patient appears at rest continues to sleep with no apparent distress received report from prior RN patient not presenting with any acute behavioral problems.
[2020-11-03] MEDS: DULoxetine HCl 30 MG CAPSULE.DR 90 MG PO (08:11)
[2020-11-03] MEDS: cephALEXin 500 MG CAPSULE PO ×2 (08:11→21:56)
[2020-11-03] MEDS: Tamsulosin HCL 0.4 MG CAPSULE PO (08:12)
[2020-11-03] MEDS: FLUoxetine HCl 20 MG CAPSULE PO (08:12)
[2020-11-03] MEDS: Gabapentin 400 MG CAPSULE PO ×3 (08:12→21:56)
[2020-11-03] MEDS: NaPROXEN 500 MG TABLET PO (08:12)
[2020-11-03 19:08] VITALS: BP 105/51; PULSE 68; RESP 15; TEMP 36.1; O2SAT 96
[2020-11-03 21:50] VITALS: BP 111/59; PULSE 65; TEMP 36.4
[2020-11-03] MEDS: Atorvastatin Calcium 10 MG TABLET PO (21:56)
[2020-11-03] MEDS: Divalproex Sodium ER 500 MG TAB.ER.24H 1000 MG PO (21:56)
[2020-11-03] MEDS: Mirtazapine 30 MG TABLET PO (21:56)
[2020-11-03 21:57] VITALS: BP 111/59; PULSE 65
[2020-11-03] MEDS: risperiDONE 1 MG TABLET PO (21:57)
[2020-11-03] MEDS: Prazosin HCL 1 MG CAPSULE 2 MG PO (21:57)
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
[2020-11-04] MEDS: Tamsulosin HCL 0.4 MG CAPSULE PO (08:18)
[2020-11-04] MEDS: Gabapentin 400 MG CAPSULE PO ×3 (08:18→20:35)
[2020-11-04] MEDS: cephALEXin 500 MG CAPSULE PO ×2 (08:18→20:35)
[2020-11-04] MEDS: NaPROXEN 500 MG TABLET PO ×2 (08:18→20:35)
[2020-11-04] MEDS: DULoxetine HCl 30 MG CAPSULE.DR 90 MG PO (08:18)
[2020-11-04] MEDS: FLUoxetine HCl 20 MG CAPSULE PO (08:18)
[2020-11-04 08:24] VITALS: BP 111/64; PULSE 74; RESP 18; TEMP 36.3; O2SAT 95
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
[2020-11-04 20:29] VITALS: BP 115/59; PULSE 75; RESP 16
[2020-11-04] MEDS: Mirtazapine 30 MG TABLET PO (20:35)
[2020-11-04] MEDS: Divalproex Sodium ER 500 MG TAB.ER.24H 1000 MG PO (20:35)
[2020-11-04] MEDS: Atorvastatin Calcium 10 MG TABLET PO (20:35)
[2020-11-04] MEDS: risperiDONE 1 MG TABLET PO (20:35)
[2020-11-04] MEDS: Prazosin HCL 1 MG CAPSULE 2 MG PO (20:35)
[2020-11-05 06:45] VITALS: BP 104/54; PULSE 78; RESP 16; TEMP 36.7; O2SAT 98
[2020-11-05] MEDS: DULoxetine HCl 60 MG CAPSULE.DR PO (08:16)
[2020-11-05] MEDS: Gabapentin 400 MG CAPSULE PO ×3 (08:16→20:17)
[2020-11-05] MEDS: FLUoxetine HCl 20 MG CAPSULE PO (08:16)
[2020-11-05] MEDS: cephALEXin 500 MG CAPSULE PO ×2 (08:16→20:16)
[2020-11-05] MEDS: Tamsulosin HCL 0.4 MG CAPSULE PO (08:16)
[2020-11-05] MEDS: NaPROXEN 500 MG TABLET PO ×2 (08:16→20:18)
--- NOTE | 2020-11-05 11:12 | P.PNPSI_ITS ---
Subjective Subjective Date of Service: 11/05/20 Reason For Visit: SI Subjective Notes: Conditional Voluntary Interim History: pt fatigued, withdrawn, concerned about feet which have blisters, peeling skin and discomfort. no redness noted. no fever On antibiotics for cellulitis. Medication Compliance: Yes Side effects from medications: No Attending Groups: No Review of Systems Review of Systems Yes Other (both feet with blister and peeling skin, open areas) Mental Status Exam Mental Status Exam Patient Appearance: Fatigued and Disheveled Patient Orientation: Person, Place and Situation Level of Consciousness: Drowsy Patient Behavior: Cooperative Mood Description: Withdrawn, Depressed, Anxious and Sad Affect Description: Depressed, Anxious and Flat Ability to Follow Directions: Good Speech Pattern: Coherent Thought Process: Goal Oriented Judgement: Fair Diagnostics Vital Signs (24Hr): Vital Signs - 24 hr 11/04/20 20:29 11/05/20 06:45 Temperature 98.1 F Pulse Rate 75 78 Respiratory Rate 16 16 Blood Pressure 115/59 L 104/54 L Pulse Oximetry 98 Body Mass Index 32.5 Labs Results: 11/02/20 19:00 11/02/20 19:00 Medications Medications Current Medications Generic Name Dose Route Start Last Admin Trade Name Freq PRN Reason Stop Dose Admin Acetaminophen 650 mg 11/03/20 20:08 Acetaminophen 325 Mg Tablet PO Q6H PRN Headache/Pain Mild Scale (1-3) Al Hydroxide/Mg Hydroxide 30 ml 11/03/20 20:08 Magnesium Hydrox/Alum Hydrox 30 Ml Oral.Susp PO Q6H PRN Heartburn/Nausea Atorvastatin Calcium 10 mg 11/02/20 22:15 11/04/20 20:35 Atorvastatin Calcium 10 Mg Tablet PO 10 mg BEDTIME CORIE Administration Bacitracin 1 appl 11/05/20 11:15 Bacitracin Oint 14 Gm Tube TOPICAL BID CORIE Protocol Baclofen 10 mg 11/02/20 22:08 11/02/20 22:26 Baclofen 10 Mg Tablet PO 10 mg TID PRN Administration Back Pain Cephalexin HCl 500 mg 11/02/20 17:24 11/05/20 08:16 Cephalexin 500 Mg Capsule PO 500 mg BID CORIE Administration Clonidine HCl 0.1 mg 11/02/20 22:08 Clonidine Hcl 0.1 Mg Tablet PO TID PRN anxiety Protocol Divalproex Sodium 1,000 mg 11/02/20 22:15 11/04/20 20:35 Divalproex Sodium Er 500 Mg Tab.Er.24h PO 1,000 mg BEDTIME CORIE Administration Doxycycline Hyclate 100 mg 11/02/20 17:24 11/05/20 08:16 Doxycycline Hyclate 100 Mg Tablet PO 100 mg BID CORIE Administration Duloxetine HCl 60 mg 11/05/20 09:00 11/05/20 08:16 Duloxetine Hcl 60 Mg Capsule. PO 11/07/20 23:59 60 mg DAILY CORIE Administration Duloxetine HCl 30 mg 11/08/20 09:00 Duloxetine Hcl 30 Mg Capsule. PO 11/09/20 23:59 DAILY [facility]IE Duloxetine HCl 20 mg 11/10/20 09:00 Duloxetine Hcl 20 Mg Capsule. PO 11/11/20 14:47 DAILY [facility] Fluoxetine HCl 20 mg 11/03/20 09:00 11/05/20 08:16 Fluoxetine Hcl 20 Mg Capsule PO 20 mg DAILY [facility] Administration Gabapentin 400 mg 11/02/20 22:15 11/05/20 08:16 Gabapentin 400 Mg Capsule PO 400 mg TID CORIE Administration Hydroxyzine HCl 25 mg 11/03/20 20:08 Hydroxyzine Hcl 25 Mg Tablet PO BEDTIME PRN Anxiety Magnesium Hydroxide 30 ml 11/03/20 20:08 Milk Of Magnesia 30 Ml Oral.Susp PO DAILY PRN Constipation Methadone HCl 130 mg 11/03/20 09:00 11/05/20 08:17 Methadone Hcl 1 Mg/0.1 Ml Oral.Conc PO 130 mg DAILY [facility] Administration Mirtazapine 30 mg 11/02/20 22:15 11/04/20 20:35 Mirtazapine 30 Mg Tablet PO 30 mg BEDTIME [facility] Administration Naproxen 500 mg 11/03/20 09:00 11/05/20 08:16 Naproxen 500 Mg Tablet PO 500 mg 0900,2100 [facility] Administration Nicotine Polacrilex 4 mg 11/05/20 11:07 Nicotine Polacrilex 4 Mg Lozenge BUCCAL Q2H PRN cravings Prazosin HCl 2 mg 11/02/20 22:15 11/04/20 20:35 Prazosin Hcl 1 Mg Capsule PO 2 mg BEDTIME [facility]IE Administration Protocol Risperidone 1 mg 11/02/20 22:15 11/04/20 20:35 Risperidone 1 Mg Tablet PO 1 mg BEDTIME [facility] Administration Tamsulosin HCl 0.4 mg 11/03/20 09:00 07/03/21 08:16 Tamsulosin Hcl 0.4 Mg Capsule PO 0.4 mg DAILY [facility] Administration Trazodone HCl 50 mg 11/02/20 22:08 Trazodone Hcl 50 Mg Tablet PO BEDTIME PRN Insomnia Trazodone HCl 50 mg 11/03/20 20:08 Trazodone Hcl 50 Mg Tablet PO BEDTIME PRN Insomnia Allergies Allergies Allergy/AdvReac Type Severity Reaction Status Date / Time shellfish derived Allergy Severe ANAPHAYLAXI Verified 08/04/20 22:58 [SHELLFISH DERIVED] A Assessment & Plan Assessment & Plan (1) MDD (major depressive disorder), recurrent episode, severe: Qualifiers: Psychotic features: without psychotic features Qualified Code(s): F33.2 - Major depressive disorder, recurrent severe without psychotic features Status: Acute Code(s): F33.2 - Major depressive disorder, recurrent severe without psychotic features (2) PTSD (post-traumatic stress disorder): Status: Acute Code(s): F43.10 - Post-traumatic stress disorder, unspecified (3) Cocaine use disorder, moderate, dependence: Status: Acute Code(s): F14.20 - Cocaine dependence, uncomplicated (4) Opioid use disorder, mild, in early remission, on maintenance therapy: Status: Acute Code(s): F11.11 - Opioid abuse, in remission (5) Cellulitis: Status: Acute Code(s): L03.90 - Cellulitis, unspecified Assessment and Plan: IMPRESSION: patient is a 35-year-old male with history of depression, PTSD, chronic SI, substance abuse, opiate dependent on methadone who presents for increased depression and SI in the face of relational strife and homelessness. patient reports active SI has resolved and only intermittent, passive SI remains. He wants to continue on his medications. However commercial loan underwriter discussed that he is on 3 medications that increase serotonin (duloxetine, fluoxetine, mirtazapine) and that they are not at max dose; patient says to get rid of duloxetine since it was the last 1 added and he has gabapentin for nerve pain. Otherwise patient feels that if he can rest that mood will improve. Will admit for safety and stabilization PLAN: Continue paln below and add bacitracin ointment apply to feet BID patient on CV Q 15 minutes checks Continue home meds with exception of duloxetine Will taper and DC duloxetine Greater than 50% of the session was spent on counseling and/or coordination of care Reason for contiued inpatient stay Substantial Risk for: harm to self, inability to function and med/psych decompensation
[2020-11-05] MEDS: Nicotine Polacrilex 2 MG GUM 4 MG BUCCAL ×2 (11:50→17:57)
[2020-11-05] MEDS: Bacitracin Oint 14 GM TUBE 1 APPL TOPICAL ×2 (12:21→20:19)
[2020-11-05 18:00] VITALS: BP 116/79; PULSE 73; TEMP 36.4
[2020-11-05 20:16] VITALS: BP 116/79; PULSE 73
[2020-11-05] MEDS: Prazosin HCL 1 MG CAPSULE 2 MG PO (20:16)
[2020-11-05] MEDS: Mirtazapine 30 MG TABLET PO (20:17)
[2020-11-05] MEDS: risperiDONE 1 MG TABLET PO (20:18)
[2020-11-05] MEDS: Divalproex Sodium ER 500 MG TAB.ER.24H 1000 MG PO (20:18)
[2020-11-05] MEDS: Atorvastatin Calcium 10 MG TABLET PO (20:19)
[2020-11-06 06:00] VITALS: BP 114/58; PULSE 71; RESP 14; TEMP 36.3; O2SAT 97
[2020-11-06] MEDS: cephALEXin 500 MG CAPSULE PO ×2 (08:23→20:22)
[2020-11-06] MEDS: FLUoxetine HCl 20 MG CAPSULE PO (08:24)
[2020-11-06] MEDS: DULoxetine HCl 60 MG CAPSULE.DR PO (08:24)
[2020-11-06] MEDS: NaPROXEN 500 MG TABLET PO ×2 (08:24→20:21)
[2020-11-06] MEDS: Tamsulosin HCL 0.4 MG CAPSULE PO (08:24)
[2020-11-06] MEDS: Gabapentin 400 MG CAPSULE PO ×3 (08:24→20:20)
[2020-11-06] MEDS: Bacitracin Oint 14 GM TUBE 1 APPL TOPICAL ×2 (08:25→20:33)
[2020-11-06] MEDS: Nicotine Polacrilex 2 MG GUM 4 MG BUCCAL ×4 (09:42→20:32)
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
--- NOTE | 2020-11-06 11:16 | P.PNPSI_ITS ---
Subjective Subjective Date of Service: 11/06/20 Reason For Visit: SI Interim History: ptcontinues to be depressed, fatigued,and withdrawn. Using bacitracin on feet which have blisters, peeling skin and discomfort. no redness noted. No fever On antibiotics for cellulitis. Tolerating duloxetine taper Review of Systems Review of Systems Yes Other (both feet with blister and peeling skin, open areas) Mental Status Exam Mental Status Exam Patient Appearance: Unkempt Patient Orientation: Person, Place and Situation Level of Consciousness: Drowsy Patient Behavior: Cooperative Mood Description: Withdrawn, Depressed, Anxious and Sad Affect Description: Depressed, Anxious and Flat Ability to Follow Directions: Good Speech Pattern: Coherent Judgement: Fair Diagnostics Vital Signs (24Hr): Vital Signs - 24 hr 11/05/20 18:00 11/05/20 20:16 11/06/20 06:00 Temperature 97.6 F 97.4 F Pulse Rate 73 73 71 Respiratory Rate 14 Blood Pressure 116/79 116/79 114/58 L Pulse Oximetry 97 Body Mass Index 32.5 Labs Results: 11/02/20 19:00 11/02/20 19:00 Medications Medications Current Medications Generic Name Dose Route Start Last Admin Trade Name Freq PRN Reason Stop Dose Admin Acetaminophen 650 mg 11/03/20 20:08 Acetaminophen 325 Mg Tablet PO Q6H PRN Headache/Pain Mild Scale (1-3) Al Hydroxide/Mg Hydroxide 30 ml 11/03/20 20:08 Magnesium Hydrox/Alum Hydrox 30 Ml Oral.Susp PO Q6H PRN Heartburn/Nausea Atorvastatin Calcium 10 mg 11/02/20 22:15 11/05/20 20:19 Atorvastatin Calcium 10 Mg Tablet PO 10 mg BEDTIME CORIE Administration Bacitracin 1 appl 11/05/20 11:15 11/06/20 08:25 Bacitracin Oint 14 Gm Tube TOPICAL 1 appl BID CORIE Administration Protocol Baclofen 10 mg 11/02/20 22:08 11/02/20 22:26 Baclofen 10 Mg Tablet PO 10 mg TID PRN Administration Back Pain Cephalexin HCl 500 mg 11/02/20 17:24 11/06/20 08:23 Cephalexin 500 Mg Capsule PO 500 mg BID CORIE Administration Clonidine HCl 0.1 mg 11/02/20 22:08 Clonidine Hcl 0.1 Mg Tablet PO TID PRN anxiety Protocol Divalproex Sodium 1,000 mg 11/02/20 22:15 11/05/20 20:18 Divalproex Sodium Er 500 Mg Tab.Er.24h PO 1,000 mg BEDTIME CORIE Administration Doxycycline Hyclate 100 mg 11/02/20 17:24 11/06/20 08:24 Doxycycline Hyclate 100 Mg Tablet PO 100 mg BID CORIE Administration Duloxetine HCl 60 mg 11/05/20 09:00 11/06/20 08:24 Duloxetine Hcl 60 Mg Capsule. PO 11/07/20 23:59 60 mg DAILY CORIE Administration Duloxetine HCl 30 mg 11/08/20 09:00 Duloxetine Hcl 30 Mg Capsule. PO 11/09/20 23:59 DAILY CORIE Duloxetine HCl 20 mg 11/10/20 09:00 Duloxetine Hcl 20 Mg Capsule. PO 11/11/20 14:47 DAILY CORIE Fluoxetine HCl 20 mg 11/03/20 09:00 11/06/20 08:24 Fluoxetine Hcl 20 Mg Capsule PO 20 mg DAILY CORIE Administration Gabapentin 400 mg 11/02/20 22:15 11/06/20 08:24 Gabapentin 400 Mg Capsule PO 400 mg TID CORIE Administration Hydroxyzine HCl 25 mg 11/03/20 20:08 Hydroxyzine Hcl 25 Mg Tablet PO BEDTIME PRN Anxiety Magnesium Hydroxide 30 ml 11/03/20 20:08 Milk Of Magnesia 30 Ml Oral.Susp PO DAILY PRN Constipation Methadone HCl 130 mg 11/03/20 09:00 11/06/20 08:23 Methadone Hcl 1 Mg/0.1 Ml Oral.Conc PO 130 mg DAILY CORIE Administration Mirtazapine 30 mg 11/02/20 22:15 11/05/20 20:17 Mirtazapine 30 Mg Tablet PO 30 mg BEDTIME CORIE Administration Naproxen 500 mg 11/03/20 09:00 11/06/20 08:24 Naproxen 500 Mg Tablet PO 500 mg 0900,2100 CORIE Administration Nicotine Polacrilex 4 mg 11/05/20 11:32 11/06/20 09:42 Nicotine Polacrilex 2 Mg Gum BUCCAL 4 mg Q2H PRN Administration Nicotine Cravings Prazosin HCl 2 mg 11/02/20 22:15 11/05/20 20:16 Prazosin Hcl 1 Mg Capsule PO 2 mg BEDTIME CORIE Administration Protocol Risperidone 1 mg 11/02/20 22:15 11/05/20 20:18 Risperidone 1 Mg Tablet PO 1 mg BEDTIME CORIE Administration Tamsulosin HCl 0.4 mg 11/03/20 09:00 11/06/20 08:24 Tamsulosin Hcl 0.4 Mg Capsule PO 0.4 mg DAILY CORIE Administration Trazodone HCl 50 mg 11/02/20 22:08 Trazodone Hcl 50 Mg Tablet PO BEDTIME PRN Insomnia Trazodone HCl 50 mg 11/03/20 20:08 Trazodone Hcl 50 Mg Tablet PO BEDTIME PRN Insomnia Allergies Allergies Allergy/AdvReac Type Severity Reaction Status Date / Time shellfish derived Allergy Severe ANAPHAYLAXI Verified 08/04/20 22:58 [SHELLFISH DERIVED] A Assessment & Plan Assessment & Plan (1) MDD (major depressive disorder), recurrent episode, severe: Qualifiers: Psychotic features: without psychotic features Qualified Code(s): F33.2 - Major depressive disorder, recurrent severe without psychotic features Status: Acute Code(s): F33.2 - Major depressive disorder, recurrent severe without psychotic features (2) PTSD (post-traumatic stress disorder): Status: Acute Code(s): F43.10 - Post-traumatic stress disorder, unspecified (3) Cocaine use disorder, moderate, dependence: Status: Acute Code(s): F14.20 - Cocaine dependence, uncomplicated (4) Opioid use disorder, mild, in early remission, on maintenance therapy: Status: Acute Code(s): F11.11 - Opioid abuse, in remission (5) Cellulitis: Status: Acute Code(s): L03.90 - Cellulitis, unspecified Assessment and Plan: IMPRESSION: patient is a 35-year-old male with history of depression, PTSD, chronic SI, substance abuse, opiate dependent on methadone who presents for increased depression and SI in the face of relational strife and homelessness. patient reports active SI has resolved and only intermittent, passive SI remains. He wants to continue on his medications. However marketing copywriter discussed that he is on 3 medications that increase serotonin (duloxetine, fluoxetine, mirtazapine) and that they are not at max dose; patient says to get rid of duloxetine since it was the last 1 added and he has gabapentin for nerve pain. Otherwise patient feels that if he can rest that mood will improve. Will admit for safety and stabilization PLAN: Continue plan below bacitracin ointment apply to feet BID patient on CV Q 15 minutes checks Continue home meds except for duloxetine which is being tapered Greater than 50% of the session was spent on counseling and/or coordination of care Reason for contiued inpatient stay Substantial Risk for: harm to self, inability to function, rapid decompensation and med/psych decompensation
[2020-11-06 16:50] VITALS: BP 155/66; PULSE 80; TEMP 37.1; O2SAT 98
[2020-11-06 20:19] VITALS: BP 155/66; PULSE 80
[2020-11-06] MEDS: Prazosin HCL 1 MG CAPSULE 2 MG PO (20:19)
[2020-11-06] MEDS: Mirtazapine 30 MG TABLET PO (20:20)
[2020-11-06] MEDS: Divalproex Sodium ER 500 MG TAB.ER.24H 1000 MG PO (20:21)
[2020-11-06] MEDS: Atorvastatin Calcium 10 MG TABLET PO (20:22)
[2020-11-06] MEDS: risperiDONE 1 MG TABLET PO (20:22)
[2020-11-07 06:00] VITALS: BP 112/69; PULSE 73; TEMP 36.2; O2SAT 98
[2020-11-07] MEDS: NaPROXEN 500 MG TABLET PO (08:04)
[2020-11-07] MEDS: DULoxetine HCl 60 MG CAPSULE.DR PO (08:04)
[2020-11-07] MEDS: cephALEXin 500 MG CAPSULE PO ×2 (08:04→20:54)
[2020-11-07] MEDS: Gabapentin 400 MG CAPSULE PO ×3 (08:04→20:54)
[2020-11-07] MEDS: FLUoxetine HCl 20 MG CAPSULE PO (08:04)
[2020-11-07] MEDS: Tamsulosin HCL 0.4 MG CAPSULE PO (08:04)
[2020-11-07] MEDS: Nicotine Polacrilex 2 MG GUM 4 MG BUCCAL (08:05)
[2020-11-07 08:26] VITALS: BP 112/69; PULSE 73; TEMP 36.2; O2SAT 98
--- NOTE | 2020-11-07 12:22 | HO.PSYCHPN ---
Subjective Subjective Date of Service: 11/07/20 Reason For Visit: SI Interim History: pt continues to be depressed, fatigued,and withdrawn. Using bacitracin on feet which have blisters, peeling skin and discomfort. no redness noted. No fever On antibiotics for cellulitis. Tolerating duloxetine taper Review of Systems Review of Systems Yes Other (both feet with blister and peeling skin, open areas) Mental Status Exam Mental Status Exam Patient Appearance: Unkempt Patient Orientation: Person, Place and Situation Level of Consciousness: Drowsy Patient Behavior: Cooperative Mood Description: Withdrawn, Depressed, Anxious and Sad Affect Description: Depressed, Anxious and Flat Ability to Follow Directions: Good Speech Pattern: Coherent Judgement: Fair (fair-poor) Diagnostics Vital Signs (24Hr): Vital Signs - 24 hr 11/06/20 16:50 11/06/20 20:19 11/07/20 06:00 Temperature 98.7 F 97.2 F Pulse Rate 80 80 73 Blood Pressure 155/66 H 155/66 H 112/69 Pulse Oximetry 98 98 11/07/20 08:26 Temperature 97.2 F Pulse Rate 73 Blood Pressure 112/69 Pulse Oximetry 98 Body Mass Index 32.5 Labs Results: 11/02/20 19:00 11/02/20 19:00 Medications Medications Current Medications Generic Name Dose Route Start Last Admin Trade Name Faustoq PRN Reason Stop Dose Admin Acetaminophen 650 mg 11/03/20 20:08 Acetaminophen 325 Mg Tablet PO Q6H PRN Headache/Pain Mild Scale (1-3) Al Hydroxide/Mg Hydroxide 30 ml 11/03/20 20:08 Magnesium Hydrox/Alum Hydrox 30 Ml Oral.Susp PO Q6H PRN Heartburn/Nausea Atorvastatin Calcium 10 mg 11/02/20 22:15 11/06/20 20:22 Atorvastatin Calcium 10 Mg Tablet PO 10 mg BEDTIME CORIE Administration Bacitracin 1 appl 11/05/20 11:15 11/07/20 10:02 Bacitracin Oint 14 Gm Tube TOPICAL Not Given BID CORIE Protocol Baclofen 10 mg 11/02/20 22:08 11/02/20 22:26 Baclofen 10 Mg Tablet PO 10 mg TID PRN Administration Back Pain Cephalexin HCl 500 mg 11/02/20 17:24 11/07/20 08:04 Cephalexin 500 Mg Capsule PO 500 mg BID CORIE Administration Clonidine HCl 0.1 mg 11/02/20 22:08 Clonidine Hcl 0.1 Mg Tablet PO TID PRN anxiety Protocol Divalproex Sodium 1,000 mg 11/02/20 22:15 11/06/20 20:21 Divalproex Sodium Er 500 Mg Tab.Er.24h PO 1,000 mg BEDTIME CORIE Administration Doxycycline Hyclate 100 mg 11/02/20 17:24 11/07/20 08:04 Doxycycline Hyclate 100 Mg Tablet PO 100 mg BID CORIE Administration Duloxetine HCl 60 mg 11/05/20 09:00 11/07/20 08:04 Duloxetine Hcl 60 Mg Capsule. PO 11/07/20 23:59 60 mg DAILY CORIE Administration Duloxetine HCl 30 mg 11/08/20 09:00 Duloxetine Hcl 30 Mg Capsule. PO 11/09/20 23:59 DAILY CORIE Duloxetine HCl 20 mg 11/10/20 09:00 Duloxetine Hcl 20 Mg Capsule. PO 11/11/20 14:47 DAILY CORIE Fluoxetine HCl 20 mg 11/03/20 09:00 11/07/20 08:04 Fluoxetine Hcl 20 Mg Capsule PO 20 mg DAILY CORIE Administration Gabapentin 400 mg 11/02/20 22:15 11/07/20 08:04 Gabapentin 400 Mg Capsule PO 400 mg TID CORIE Administration Hydroxyzine HCl 25 mg 11/03/20 20:08 Hydroxyzine Hcl 25 Mg Tablet PO BEDTIME PRN Anxiety Magnesium Hydroxide 30 ml 11/03/20 20:08 Milk Of Magnesia 30 Ml Oral.Susp PO DAILY PRN Constipation Methadone HCl 130 mg 11/03/20 09:00 11/07/20 08:04 Methadone Hcl 1 Mg/0.1 Ml Oral.Conc PO 130 mg DAILY CORIE Administration Mirtazapine 30 mg 11/02/20 22:15 11/06/20 20:20 Mirtazapine 30 Mg Tablet PO 30 mg BEDTIME CORIE Administration Naproxen 500 mg 11/03/20 09:00 11/07/20 08:04 Naproxen 500 Mg Tablet PO 500 mg 0900,2100 CORIE Administration Nicotine Polacrilex 4 mg 11/05/20 11:32 11/07/20 08:05 Nicotine Polacrilex 2 Mg Gum BUCCAL 4 mg Q2H PRN Administration Nicotine Cravings Prazosin HCl 2 mg 11/02/20 22:15 11/06/20 20:19 Prazosin Hcl 1 Mg Capsule PO 2 mg BEDTIME CORIE Administration Protocol Risperidone 1 mg 11/02/20 22:15 11/06/20 20:22 Risperidone 1 Mg Tablet PO 1 mg BEDTIME CORIE Administration Tamsulosin HCl 0.4 mg 11/03/20 09:00 11/07/20 08:04 Tamsulosin Hcl 0.4 Mg Capsule PO 0.4 mg DAILY CORIE Administration Trazodone HCl 50 mg 11/02/20 22:08 Trazodone Hcl 50 Mg Tablet PO BEDTIME PRN Insomnia Trazodone HCl 50 mg 11/03/20 20:08 Trazodone Hcl 50 Mg Tablet PO BEDTIME PRN Insomnia Allergies Allergies Allergy/AdvReac Type Severity Reaction Status Date / Time shellfish derived Allergy Severe ANAPHAYLAXI Verified 08/04/20 22:58 [SHELLFISH DERIVED] A Assessment & Plan Assessment & Plan (1) MDD (major depressive disorder), recurrent episode, severe: Qualifiers: Psychotic features: without psychotic features Qualified Code(s): F33.2 - Major depressive disorder, recurrent severe without psychotic features Status: Acute Code(s): F33.2 - Major depressive disorder, recurrent severe without psychotic features (2) PTSD (post-traumatic stress disorder): Status: Acute Code(s): F43.10 - Post-traumatic stress disorder, unspecified (3) Cocaine use disorder, moderate, dependence: Status: Acute Code(s): F14.20 - Cocaine dependence, uncomplicated (4) Opioid use disorder, mild, in early remission, on maintenance therapy: Status: Acute Code(s): F11.11 - Opioid abuse, in remission (5) Cellulitis: Status: Acute Code(s): L03.90 - Cellulitis, unspecified Assessment and Plan: IMPRESSION: patient is a 35-year-old male with history of depression, PTSD, chronic SI, substance abuse, opiate dependent on methadone who presents for increased depression and SI in the face of relational strife and homelessness. patient reports active SI has resolved and only intermittent, passive SI remains. He wants to continue on his medications. However repairer typewriter discussed that he is on 3 medications that increase serotonin (duloxetine, fluoxetine, mirtazapine) and that they are not at max dose; patient says to get rid of duloxetine since it was the last 1 added and he has gabapentin for nerve pain. Otherwise patient feels that if he can rest that mood will improve. Will admit for safety and stabilization PLAN: Continue plan below bacitracin ointment apply to feet BID patient on CV Q 15 minutes checks Continue home meds except for duloxetine which is being tapered Greater than 50% of the session was spent on counseling and/or coordination of care Reason for contiued inpatient stay Substantial Risk for: inability to function, rapid decompensation and med/psych decompensation
[2020-11-07 20:30] VITALS: BP 113/68; PULSE 69; TEMP 36.8
[2020-11-07] MEDS: Atorvastatin Calcium 10 MG TABLET PO (20:54)
[2020-11-07] MEDS: Divalproex Sodium ER 500 MG TAB.ER.24H 1000 MG PO (20:54)
[2020-11-07 20:55] VITALS: BP 113/68; PULSE 69
[2020-11-07] MEDS: Prazosin HCL 1 MG CAPSULE 2 MG PO (20:55)
[2020-11-07] MEDS: risperiDONE 1 MG TABLET PO (20:55)
[2020-11-07] MEDS: Mirtazapine 30 MG TABLET PO (20:55)
[2020-11-08 06:00] VITALS: BP 120/67; PULSE 67; RESP 18; TEMP 36.3; O2SAT 98
[2020-11-08] MEDS: FLUoxetine HCl 20 MG CAPSULE PO (08:09)
[2020-11-08] MEDS: cephALEXin 500 MG CAPSULE PO ×2 (08:09→20:17)
[2020-11-08] MEDS: Gabapentin 400 MG CAPSULE PO ×3 (08:10→20:17)
[2020-11-08] MEDS: Tamsulosin HCL 0.4 MG CAPSULE PO (08:10)
[2020-11-08] MEDS: DULoxetine HCl 30 MG CAPSULE.DR PO (08:10)
[2020-11-08] MEDS: Baclofen 10 MG TABLET PO (08:12)
--- NOTE | 2020-11-08 09:39 | P.PNPSI_ITS ---
Subjective Subjective Date of Service: 11/08/20 Reason For Visit: SI Subjective Notes: 3 Day Interim History: Patient reports his mood is good; he denies any SI and feels ready for discharge; patient reports that he is sleeping and eating well and of note, he does have a much brighter affect. patient reports that he has been working with a program which is helping him to get his own apartment. Until then he will stay with his mom. He feels that he can stay sober and this program will also help with that. Patient reports medications are working well and he feels fine with duloxetine tapered and discontinued. patient showed race and sports book writer his feet and saying they healed Mental Status Exam Mental Status Exam Narrative: Pt is alert and oriented; behavior is cooperative, friendly and calm; patient is not in distress; dressed in casual attire, unkempt hair/louis but with adequate hygiene. mood is described as good and affect congruent, brighter; eye contact appropriate; Speech is normal rate, volume and prosody and not pressured; no psychomotor agitation/retardation present; thought process is organized, linear, logical and goal directed. Thought content is on getting stable and otherwise pertinent to relevant topics and without any delusional co ntent, paranoid ideations or grandiosity; intermittent, denies any SI; denies any HI. There is no evidence of perceptual disturbance. Patients insight and judgment appear intact. Diagnostics Vital Signs (24Hr): Vital Signs - 24 hr 11/07/20 20:30 11/07/20 20:55 11/08/20 06:00 Temperature 98.2 F 97.4 F Pulse Rate 69 69 67 Respiratory Rate 18 Blood Pressure 113/68 113/68 120/67 Pulse Oximetry 98 Body Mass Index 32.5 Labs Results: 11/02/20 19:00 11/02/20 19:00 Medications Medications Current Medications Generic Name Dose Route Start Last Admin Trade Name Freq PRN Reason Stop Dose Admin Acetaminophen 650 mg 11/03/20 20:08 Acetaminophen 325 Mg Tablet PO Q6H PRN Headache/Pain Mild Scale (1-3) Al Hydroxide/Mg Hydroxide 30 ml 11/03/20 20:08 Magnesium Hydrox/Alum Hydrox 30 Ml Oral.Susp PO Q6H PRN Heartburn/Nausea Atorvastatin Calcium 10 mg 11/02/20 22:15 11/07/20 20:54 Atorvastatin Calcium 10 Mg Tablet PO 10 mg BEDTIME CORIE Administration Bacitracin 1 appl 11/05/20 11:15 11/08/20 08:23 Bacitracin Oint 14 Gm Tube TOPICAL Not Given BID CORIE Protocol Baclofen 10 mg 11/02/20 22:08 11/08/20 08:12 Baclofen 10 Mg Tablet PO 10 mg TID PRN Administration Back Pain Cephalexin HCl 500 mg 11/02/20 17:24 11/08/20 08:09 Cephalexin 500 Mg Capsule PO 500 mg BID CORIE Administration Clonidine HCl 0.1 mg 11/02/20 22:08 Clonidine Hcl 0.1 Mg Tablet PO TID PRN anxiety Protocol Divalproex Sodium 1,000 mg 11/02/20 22:15 11/07/20 20:54 Divalproex Sodium Er 500 Mg Tab.Er.24h PO 1,000 mg BEDTIME CORIE Administration Doxycycline Hyclate 100 mg 11/02/20 17:24 11/08/20 08:09 Doxycycline Hyclate 100 Mg Tablet PO 100 mg BID CORIE Administration Duloxetine HCl 30 mg 11/08/20 09:00 11/08/20 08:10 Duloxetine Hcl 30 Mg Capsule.Dr MAHMOOD 11/09/20 23:59 30 mg DAILY CORIE Administration Duloxetine HCl 20 mg 11/10/20 09:00 Duloxetine Hcl 20 Mg Capsule.Dr MAHMOOD 11/11/20 14:47 DAILY CORIE Fluoxetine HCl 20 mg 11/03/20 09:00 11/08/20 08:09 Fluoxetine Hcl 20 Mg Capsule PO 20 mg DAILY CORIE Administration Gabapentin 400 mg 11/02/20 22:15 11/08/20 08:10 Gabapentin 400 Mg Capsule PO 400 mg TID CORIE Administration Hydroxyzine HCl 25 mg 11/03/20 20:08 Hydroxyzine Hcl 25 Mg Tablet PO BEDTIME PRN Anxiety Magnesium Hydroxide 30 ml 11/03/20 20:08 Milk Of Magnesia 30 Ml Oral.Susp PO DAILY PRN Constipation Methadone HCl 130 mg 11/03/20 09:00 11/08/20 08:10 Methadone Hcl 1 Mg/0.1 Ml Oral.Conc PO 130 mg DAILY CORIE Administration Mirtazapine 30 mg 11/02/20 22:15 11/07/20 20:55 Mirtazapine 30 Mg Tablet PO 30 mg BEDTIME CORIE Administration Naproxen 500 mg 11/03/20 09:00 11/08/20 08:10 Naproxen 500 Mg Tablet PO Not Given 0900,2100 CORIE Nicotine Polacrilex 4 mg 11/05/20 11:32 11/07/20 08:05 Nicotine Polacrilex 2 Mg Gum BUCCAL 4 mg Q2H PRN Administration Nicotine Cravings Prazosin HCl 2 mg 11/02/20 22:15 11/07/20 20:55 Prazosin Hcl 1 Mg Capsule PO 2 mg BEDTIME CORIE Administration Protocol Risperidone 1 mg 11/02/20 22:15 11/07/20 20:55 Risperidone 1 Mg Tablet PO 1 mg BEDTIME CORIE Administration Tamsulosin HCl 0.4 mg 11/03/20 09:00 11/08/20 08:10 Tamsulosin Hcl 0.4 Mg Capsule PO 0.4 mg DAILY CORIE Administration Trazodone HCl 50 mg 11/02/20 22:08 Trazodone Hcl 50 Mg Tablet PO BEDTIME PRN Insomnia Trazodone HCl 50 mg 11/03/20 20:08 Trazodone Hcl 50 Mg Tablet PO BEDTIME PRN Insomnia Allergies Allergies Allergy/AdvReac Type Severity Reaction Status Date / Time shellfish derived Allergy Severe ANAPHAYLAXI Verified 08/04/20 22:58 [SHELLFISH DERIVED] A Assessment & Plan Assessment & Plan (1) MDD (major depressive disorder), recurrent episode, severe: Qualifiers: Psychotic features: without psychotic features Qualified Code(s): F33.2 - Major depressive disorder, recurrent severe without psychotic features Status: Acute Code(s): F33.2 - Major depressive disorder, recurrent severe without psychotic features (2) PTSD (post-traumatic stress disorder): Status: Acute Code(s): F43.10 - Post-traumatic stress disorder, unspecified (3) Cocaine use disorder, moderate, dependence: Status: Acute Code(s): F14.20 - Cocaine dependence, uncomplicated (4) Opioid use disorder, mild, in early remission, on maintenance therapy: Status: Acute Code(s): F11.11 - Opioid abuse, in remission (5) Cellulitis: Status: Acute Code(s): L03.90 - Cellulitis, unspecified Assessment and Plan: IMPRESSION: patient is a 35-year-old male with history of depression, PTSD, chronic SI, substance abuse, opiate dependent on methadone who presents for increased depression and SI in the face of relational strife and homelessness. patient reports active SI has resolved and only intermittent, passive SI remains. He wants to continue on his medications. However race and sports book writer discussed that he is on 3 medications that increase serotonin (duloxetine, fluoxetine, mirtazapine) and that they are not at max dose; patient says to get rid of duloxetine since it was the last 1 added and he has gabapentin for nerve pain. Otherwise patient feels that if he can rest that mood will improve. patient stabilized on unit; mood improved and depression fully abated; SI fully resolved feet healed PLAN: Continue plan below bacitracin ointment apply to feet BID patient on CV Q 15 minutes checks Continue home meds except for duloxetine which is being tapered Greater than 50% of the session was spent on counseling and/or coordination of care Reason for contiued inpatient stay Substantial Risk for: stable for discharge
[2020-11-08] MEDS: Nicotine Polacrilex 2 MG GUM 4 MG BUCCAL ×3 (10:53→16:43)
[2020-11-08 17:10] VITALS: BP 139/64; PULSE 78; RESP 18; TEMP 36.6; O2SAT 98
[2020-11-08 20:16] VITALS: BP 121/62; PULSE 72; RESP 18; TEMP 37; O2SAT 100
[2020-11-08 20:17] VITALS: BP 121/62; PULSE 72
[2020-11-08] MEDS: Divalproex Sodium ER 500 MG TAB.ER.24H 1000 MG PO (20:17)
[2020-11-08] MEDS: Atorvastatin Calcium 10 MG TABLET PO (20:17)
[2020-11-08] MEDS: NaPROXEN 500 MG TABLET PO (20:17)
[2020-11-08] MEDS: risperiDONE 1 MG TABLET PO (20:17)
[2020-11-08] MEDS: Prazosin HCL 1 MG CAPSULE 2 MG PO (20:17)
[2020-11-08] MEDS: Mirtazapine 30 MG TABLET PO (20:17)
[2020-11-09 06:00] VITALS: BP 117/56; PULSE 69; RESP 16; TEMP 36.4; O2SAT 99
[2020-11-09] MEDS: FLUoxetine HCl 20 MG CAPSULE PO (07:59)
[2020-11-09] MEDS: DULoxetine HCl 30 MG CAPSULE.DR PO (07:59)
[2020-11-09] MEDS: Gabapentin 400 MG CAPSULE PO (07:59)
[2020-11-09] MEDS: Tamsulosin HCL 0.4 MG CAPSULE PO (07:59)
[2020-11-09] MEDS: cephALEXin 500 MG CAPSULE PO (07:59)
[2020-11-09 10:37] LABS: Valproate 50.8 mcg/mL (50.0-100.0)
[2020-11-09 10:39] LABS: Albumin Level 4.4 g/dL (3.5-5.0); Bilirubin Direct < 0.2 mg/dL (0.0-0.5); Bilirubin Total 0.4 mg/dL (0.0-1.0); Total Protein 7.8 g/dL (6.5-8.0)
[2020-11-09] MEDS: Nicotine Polacrilex 2 MG GUM 4 MG BUCCAL (10:50)
[2020-11-09 11:03] LABS: Alanine Aminotransferase 28 U/L (0-40); Alkaline Phosphatase 100 U/L (39-117); Aspartate Amino Transferase 23 U/L (5-37)
--- NOTE | 2020-11-09 11:18 | PM.PSYDC ---
DS: Providers Provider Date of Service: 11/09/20 Date of admission: 11/03/20 18:51 Date of discharge: 11/09/20 Primary care physician: [facility] Attending physician on admission: Hakeem Roland Discharging clinician: Hakeem Roland DS: Diagnosis Discharge Diagnosis (1) MDD (major depressive disorder), recurrent episode, severe: Status: Chronic (2) PTSD (post-traumatic stress disorder): Status: Chronic (3) Cocaine use disorder, moderate, dependence: Status: Acute (4) Opioid use disorder, mild, in early remission, on maintenance therapy: Status: Chronic (5) Cellulitis: Status: Resolved DS: Medications Discharge Medications Home Medications: Home Medications Medication Instructions Recorded Confirmed methadone 130 mg PO DAILY 11/03/20 11/03/20 Previous Rx's Medication Instructions Recorded atorvastatin 10 mg PO BEDTIME 30 Days #30 tab 11/09/20 baclofen 10 mg PO TID PRN 7 Days #21 tab 11/09/20 clonidine HCl 0.1 mg PO TID PRN 30 Days #90 tab 11/09/20 divalproex 1,000 mg PO BEDTIME 30 Days #60 tab 11/09/20 duloxetine 30 mg PO DAILY 4 Days #4 cap 11/09/20 fluoxetine [Prozac] 20 mg PO DAILY 30 Days #30 cap 11/09/20 gabapentin 400 mg PO TID 14 Days #42 cap 11/09/20 mirtazapine [Remeron] 30 mg PO BEDTIME 30 Days #30 tab 11/09/20 naproxen 500 mg PO 0900,2100 7 Days #14 tab 11/09/20 nicotine (polacrilex) 4 mg BUCCAL Q2H PRN 30 Days #20 ea 11/09/20 prazosin 2 mg PO BEDTIME 30 Days #30 cap 11/09/20 risperidone 1 mg PO BEDTIME 30 Days #30 tab 11/09/20 tamsulosin 0.4 mg PO DAILY 30 Days #30 cap 11/09/20 trazodone 50 mg PO BEDTIME PRN 30 Days #30 11/09/20 tab Discharge Plan Discharge Patient Disposition: Home, Self-Care Discharge Diagnosis: MDD, recurrent, severe in full remission Referrals: Therapy & Psychiatry [Other] ([facility] will call after 1:30pm today to schedule follow-up appointments. Please call if you do not hear from them) [facility] [Other] (Call to check on bed availability if interested in placement) Digna Lepe [Nurse Practitioner] - 11/18/20 3:15 pm (IN PERSON) Discharge Medications: New nicotine (polacrilex) 2 mg Gum 4 mg buccal Q2H PRN (Reason: Nicotine Cravings) 30 Days Qty: 20 RF: 0 Continued methadone 10 mg Tablet 130 mg PO DAILY RF: 0 trazodone 50 mg Tablet 50 mg PO BEDTIME PRN (Reason: Insomnia) 30 Days Qty: 30 RF: 0 atorvastatin 10 mg Tablet 10 mg PO BEDTIME 30 Days Qty: 30 RF: 0 gabapentin 400 mg Capsule 400 mg PO TID 14 Days Qty: 42 RF: 1 tamsulosin 0.4 mg Capsule 0.4 mg PO DAILY 30 Days Qty: 30 RF: 0 baclofen 10 mg Tablet 10 mg PO TID PRN (Reason: Back Pain) 7 Days Qty: 21 RF: 0 mirtazapine [Remeron] 30 mg tablet 30 mg PO BEDTIME 30 Days Qty: 30 RF: 0 divalproex 500 mg Tablet Extended Release 24 Hr 1,000 mg PO BEDTIME 30 Days Qty: 60 RF: 0 fluoxetine [Prozac] 20 mg capsule 20 mg PO DAILY 30 Days Qty: 30 RF: 0 risperidone 1 mg Tablet 1 mg PO BEDTIME 30 Days Qty: 30 RF: 0 prazosin 2 mg capsule 2 mg PO BEDTIME 30 Days Qty: 30 RF: 0 naproxen 500 mg Tablet 500 mg PO 0900,2100 7 Days Qty: 14 RF: 0 Changed clonidine HCl 0.1 mg tablet 0.1 mg PO TID PRN (Reason: anxiety) 30 Days Qty: 90 RF: 0 duloxetine 30 mg Capsule,Delayed Release(Dr/Ec) 30 mg PO DAILY 4 Days Qty: 4 RF: 0 Discharge Orders: Discharge Order (Routine); Ordered 11/09/20 Ordered By: Hakeem Roland Diet: regular diet Activity on Discharge: As tolerated Stand Alone Forms: Patient Portal Discharge page, Community Support Care Plan Goals: Maintain mood and safe behaviors Take medications as prescribed Continue to pursue sobriety Practice coping skills Continue with outpatient providers and reach out to them as needed Health Concerns: Mood instability and behaviors substance abuse recent cellulites, now resolved Plan of Treatment: Follow up with your PCP and psychiatric provider regarding above concerns Take medications as prescribed 1 week of Baclofen: follow up with PCP 2 weeks of Gabapentin with 1 refill Take Duloxetine/Cymbalta for 4 more days and then discontinue Assessment: Risk assessment at time of discharge: Patient has been observed closely by nursing and unit staff throughout admission; patient has not engaged in any behaviors that suggest dangerousness to self or others and has demonstrated appropriate behaviors and impulse control. Patient was interviewed prior to discharge and found to be fully oriented and without any SI or HI. Patient has insight and demonstrates good judgment in terms of wanting to pursue treatment. Patient is not in imminent risk of harm to self or others and has a safety plan that includes presenting to the closest ER or calling 911 if feeling unsafe. Mental Status Exam Mental Status Exam Narrative: Pt is alert and oriented; behavior is cooperative, friendly and calm; patient is not in distress; dressed in casual attire, unkempt hair/louis but with adequate hygiene. mood is described as good and affect congruent, brighter; eye contact appropriate; Speech is normal rate, volume and prosody and not pressured; no psychomotor agitation/retardation present; thought process is organized, linear, logical and goal directed. Thought content is on getting stable and otherwise pertinent to relevant topics and without any delusional content, paranoid ideations or grandiosity; intermittent, denies any SI; denies any HI. There is no evidence of perceptual disturbance. Patients insight and judgment appear intact. Data Data Completed and Pending Completed studies during hospitalization [Text1]: 11/02/20 11/02/20 11/02/20 19:00 19:00 19:00 WBC 8.7 RBC 4.83 Hgb 12.9 L Hct 40.2 L MCV 83.2 MCH 26.7 L MCHC 32.1 RDW 13.9 Plt Count 253 MPV 9.4 Immature Gran % (Auto) 0.6 H Neut % (Auto) 63.3 Lymph % (Auto) 22.0 [place] % (Auto) 13.9 H Eos % (Auto) 0.1 Baso % (Auto) 0.1 Lymph # (Auto) 1.9 [place] # (Auto) 1.2 Eos # (Auto) 0.0 Baso # (Auto) 0.0 Abs Immat Gran (auto) 0.05 H Absolute Neuts (auto) 5.5 Absolute Nucleated RBC 0.000 Nucleated RBC % (auto) 0.0 Sodium 136 Potassium 4.9 D Chloride 100 Carbon Dioxide 26 Anion Gap 15 BUN 29 H Creatinine 1.30 Estim Creat Clear Calc 91.4 Estimated GFR > 60 Random Glucose 93 Calcium 9.8 D Total Bilirubin 0.4 Direct Bilirubin 0.2 AST 191 H ALT 63 H Alkaline Phosphatase 116 Total Protein 8.1 H Albumin 4.7 Urine Opiates Screen Ur Barbiturates Screen Valproic Acid 3.7 L Ur Phencyclidine Scrn Ur Amphetamines Screen U Benzodiazepines Scrn Urine Cocaine Screen U Marijuana (THC) Screen COVID-19 ([facility]ANKI) COVID-19 [place] 11/02/20 11/03/20 11/09/20 19:27 00:10 09:44 WBC RBC Hgb Hct MCV MCH MCHC RDW Plt Count MPV Immature Gran % (Auto) Neut % (Auto) Lymph % (Auto) [place] % (Auto) Eos % (Auto) Baso % (Auto) Lymph # (Auto) [place] # (Auto) Eos # (Auto) Baso # (Auto) Abs Immat Gran (auto) Absolute Neuts (auto) Absolute Nucleated RBC Nucleated RBC % (auto) Sodium Potassium Chloride Carbon Dioxide Anion Gap BUN Creatinine Estim Creat Clear Calc Estimated GFR Random Glucose Calcium Total Bilirubin 0.4 Direct Bilirubin < 0.2 AST 23 D ALT 28 Alkaline Phosphatase 100 Total Protein 7.8 Albumin 4.4 Urine Opiates Screen POSITIVE H Ur Barbiturates Screen Not Detected Valproic Acid 50.8 Ur Phencyclidine Scrn Not Detected Ur Amphetamines Screen Not Detected U Benzodiazepines Scrn Not Detected Urine Cocaine Screen POSITIVE H U Marijuana (THC) Screen Not Detected COVID-19 ([facility]ANKI) Negative COVID-19 Clin Com See Note DS: Summary Hospital Course Hospital Course: patient is a 35-year-old male with history of depression, PTSD, chronic SI, substance abuse, opiate dependent on methadone who presents for increased depression and SI in the face of relational strife and homelessness, recently discharged from . patient on CV. On admission patient reported depression but SI had resolved and only remained intermittently and passive. Patient wanted to continue all his medications however agreed to discontinue duloxetine given that he is already on 2 other antidepressants which are not at max doses and duloxetine was the most recently added medication; duloxetine was tapered to good effect. After a few days in supportive environment, patient's depression fully abated, SI fully resolved and his mood and affect significantly improved. patient asked for discharge. Patient continued to deny any suicidal or homicidal ideation during admission and demonstrated appropriate behaviors and impulse control on the unit. as discharge approach, patient reported his mood was good that he was sleeping well, eating well, future oriented and optimistic about staying sober. Patient is connected with [facility] and reported that he will 1st go live with his mother, but that their [facility] program is helping him find an apartment; he also plans to utilize them for help with sobriety is they provide recovery coaches. Patient has a history of emotional reactivity, relapse and missing follow up appointments and he remains vulnerable to relapse or becoming dysregulated; however, these are chronic issues of which patient is well aware and continues to work on in the community. He is not in imminent risk of harm to self or others and does not meet criteria for involuntary commitment. His request for discharge honored. in the ED, patient was diagnosed with a cellulitis and started on antibiotics; cellulitis resolved, antibiotics course completed. Time spent discussing smoking cessation with patient: 3 to 10 minutes Status at Discharge Functional status at discharge: independent ambulation Overall status at discharge: patient is back to baseline Time Spent with Patient Time attestation: Total time spent providing and/or coordinating discharge services: Time spent: Greater than 30 minutes
[2020-11-09] MEDS: Naloxone HCl Nasal TAKE HOME 4 MG SPRAY NOSTRILALT (11:58)
== END 2020-11-09 12:25 | disposition home or self-care (01) | DRG 751 ==
LOC: HO.ED 17:12 → HO.PM5 11-03 18:59
PROVIDERS: Admitting Provider Clinical Nurse Specialist Psychiatric/Mental Health; Emergency Provider Emergency Medicine; Visit Provider Psychiatry & Neurology Psychiatry
DX: F33.2 Major depressive disorder, recurrent severe without psychotic features (principal); R45.851 Suicidal ideations; F11.20 Opioid dependence, uncomplicated; F43.10 Post-traumatic stress disorder, unspecified; L03.116 Cellulitis of left lower limb; L03.114 Cellulitis of left upper limb; F14.20 Cocaine dependence, uncomplicated; E78.5 Hyperlipidemia, unspecified; N40.0 Benign prostatic hyperplasia without lower urinary tract symptoms; Z20.822 Contact with and (suspected) exposure to COVID-19; Z79.1 Long term (current) use of non-steroidal anti-inflammatories (NSAID); Z79.899 Other long term (current) drug therapy
CPT/HCPCS: 36415; 80048; 80076; 80164; 80307; 85025; 87635; 93005; 99285

== ENCOUNTER 2020-12-08 12:26 | Inpatient (IN) | payer OTHER, MEDICAID, SELFPAY ==
[2020-12-08 12:45] VITALS: BP 111/70; PULSE 84; RESP 18; TEMP 36.6; O2SAT 98; BMI 34.0
--- NOTE | 2020-12-08 13:19 | ECG_ITS ---
Test Reason : MED CLEARANCE Blood Pressure : / mmHG Vent. Rate : 060 BPM Atrial Rate : 060 BPM P-R Int : 164 ms QRS Dur : 090 ms QT Int : 474 ms P-R-T Axes : 052 066 062 degrees QTc Int : 474 ms Normal sinus rhythm Normal ECG When compared with ECG of 02-NOV-2020 19:15, No significant change was found Referred By: Myah Muse Electronically Signed By:Jesse Sloan
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
[2020-12-08 14:12] LABS: Amphetamine Screen Urine Not Detected (Not Detect); Barbiturates, Urine Not Detected (Not Detect); Benzodiazepines Screen Urine Not Detected (Not Detect); Cannabinoid Screen Urine POSITIVE (Not Detect); Cocaine Screen Urine POSITIVE (Not Detect); Opiate Screen Urine POSITIVE (Not Detect); Phencyclidine Screen Urine Not Detected (Not Detect)
[2020-12-08 14:16] LABS: COVID-19 Test Negative (Negative); IDNOW Serial# 9DD0AD1C
--- NOTE | 2020-12-08 14:23 | PHA.MEDREC ---
Pharmacy Consult ? Medication Reconciliation Pharmacy has completed the medication reconciliation. There are no remarkable issues for provider's attention. Patient gets methadone from [facility] in [place]. RN Angy called and will have next shift staff follow-up. Juanis Grady, IvonneD
[2020-12-08 14:37] LABS: MANUAL DIFF FLAG NO
[2020-12-08 14:38] LABS: Basophils Percent Auto 0.2 % (0-2); Eosinophils Absolute Auto 0.1 X10*3/uL (0.0-0.4); Eosinophils Percent Auto 1.2 % (0-4); Hematocrit 39.8 % (42-52); Hemoglobin 12.8 g/dl (14.0-18.0); Imm Gran Abs Auto 0.07 X10*3/uL (0.00-0.03); Imm Gran Pct Auto 0.8 % (0.0-0.4); Lymphocytes Absolute Auto 2.5 X10*3/uL (1.2-4.9); Lymphocytes Percent Auto 27.5 % (20-40); Mean Corpuscular HGB Conc 32.2 g/dl (31.0-36.0); Mean Corpuscular Hemoglobin 27.3 pg (27.0-33.0); Mean Corpuscular Volume 84.9 fL (80-98); Monocytes Absolute Auto 0.8 X10*3/uL (0.1-1.2); Monocytes Percent Auto 8.1 % (2-11); Neutrophils Absolute Auto 5.8 X10*3/uL (2.0-8.3); Neutrophils Percent Auto 62.2 % (45-73); Red Blood Count 4.69 X10*6/uL (4.60-5.80); Red Cell Distribution Width 14.3 % (11.0-16.0); White Blood Count 9.3 X10*3/uL (4.8-10.8)
[2020-12-08 15:14] LABS: Ethanol < 10 mg/dL
[2020-12-08 15:34] LABS: Alanine Aminotransferase 32 U/L (0-40); Albumin Level 4.3 g/dL (3.5-5.0); Alkaline Phosphatase 116 U/L (39-117); Anion Gap 17 (12-20); Aspartate Amino Transferase 27 U/L (5-37); Bilirubin Direct 0.2 mg/dL (0.0-0.5); Bilirubin Total 0.3 mg/dL (0.0-1.0); Blood Urea Nitrogen 27 mg/dL (9-16); Calcium 9.5 mg/dL (8.4-10.2); Carbon Dioxide 21 mmol/L (22-29); Chloride 106 mmol/L (96-108); Creatinine Clr Calc Pharmacy 113.5; Estimated Glomerular Filt Rate > 60; Glucose Random 146 mg/dL (60-115); Potassium 3.8 mmol/L (3.3-5.1); Salicylate < 5.0 mg/dL (15-30); Sodium 140 mmol/L (135-145); Total Protein 7.5 g/dL (6.5-8.0)
[2020-12-08 15:48] LABS: Acetaminophen LAB < 1 mcg/mL (<30)
--- NOTE | 2020-12-08 17:14 | PC.NURSE ---
Pt resting in bed with eyes closed.
[2020-12-08] MEDS: Mirtazapine 30 MG TABLET PO (20:58)
[2020-12-08] MEDS: Gabapentin 400 MG CAPSULE PO (20:58)
[2020-12-08] MEDS: Atorvastatin Calcium 10 MG TABLET PO (20:58)
[2020-12-08 20:59] VITALS: BP 109/59; PULSE 60
[2020-12-08] MEDS: Divalproex Sodium ER 500 MG TAB.ER.24H 1000 MG PO (20:59)
[2020-12-08] MEDS: risperiDONE 1 MG TABLET PO (20:59)
[2020-12-08] MEDS: Prazosin HCL 1 MG CAPSULE 2 MG PO (20:59)
--- NOTE | 2020-12-09 07:14 | PC.NURSE ---
Patient slept through the night, no distress observed/reported, disposition section 12 inpatient bed search, med compliant, behavior appropriate, appetite adequate, will continue to monitor.
[2020-12-09 09:51] VITALS: BP 109/59; PULSE 60
[2020-12-09] MEDS: Nicotine Polacrilex 2 MG GUM BUCCAL (09:51)
[2020-12-09] MEDS: FLUoxetine HCl 20 MG CAPSULE PO (09:51)
[2020-12-09] MEDS: Tamsulosin HCL 0.4 MG CAPSULE PO (09:51)
[2020-12-09] MEDS: cloNIDine HCL 0.1 MG TABLET PO (09:51)
[2020-12-09] MEDS: Gabapentin 400 MG CAPSULE PO ×3 (09:51→20:42)
[2020-12-09 10:53] VITALS: BP 101/78; PULSE 80; RESP 16; TEMP 36.6; O2SAT 97
--- NOTE | 2020-12-09 16:48 | PC.ADMIT ---
Pt on unit at 1405. Pt brought to [facility] by his Mother after attempted to OD on heroin/cocaine as suicide attempt. Pt tox screen was Positive for opiates,cocaine and marijuana. Pt Reports he is tired and wants to sleep. Admission quickly reviewed with pt. Pt signed CV. Pt denies SI/HI at this time. Pt vss. Pt has an EKG in ER which was at Normal sinus rhythm. Pt is homeless and feeling hopeless. Pt had negative covid.
[2020-12-09 18:00] VITALS: BP 126/56; PULSE 67; TEMP 36.4
[2020-12-09 20:43] VITALS: BP 125/56; PULSE 67
[2020-12-09] MEDS: Prazosin HCL 1 MG CAPSULE 2 MG PO (20:43)
[2020-12-09] MEDS: risperiDONE 1 MG TABLET PO (20:44)
[2020-12-09] MEDS: Divalproex Sodium ER 500 MG TAB.ER.24H 1000 MG PO (20:44)
[2020-12-09] MEDS: Mirtazapine 30 MG TABLET PO (20:44)
[2020-12-09] MEDS: Baclofen 10 MG TABLET PO (20:44)
[2020-12-09] MEDS: Atorvastatin Calcium 10 MG TABLET PO (20:44)
[2020-12-10 06:00] VITALS: BP 103/53; PULSE 65; RESP 18; TEMP 35.9; O2SAT 95
[2020-12-10 08:19] VITALS: BP 112/65; PULSE 74
[2020-12-10] MEDS: Nicotine Polacrilex 2 MG GUM BUCCAL (08:19)
[2020-12-10] MEDS: Tamsulosin HCL 0.4 MG CAPSULE PO (08:19)
[2020-12-10] MEDS: Gabapentin 400 MG CAPSULE PO ×3 (08:19→20:08)
[2020-12-10] MEDS: cloNIDine HCL 0.1 MG TABLET PO ×2 (08:19→16:20)
[2020-12-10] MEDS: Baclofen 10 MG TABLET PO ×3 (08:19→20:17)
[2020-12-10] MEDS: FLUoxetine HCl 20 MG CAPSULE PO (08:19)
[2020-12-10 08:33] LABS: Estimated Average Glucose 117 mg/dL; Hemoglobin A1c % 5.7 %
[2020-12-10 08:47] LABS: Cholesterol 180 mg/dL; HDL Cholesterol 33 mg/dL; Iron 90 mcg/dL (45-160); LDL Cholesterol Calculated 105 mg/dl; Percent Iron Saturation 24 % (15-50); Total Iron Binding Capacity 373 mcg/dL (228-428); Triglycerides 210 mg/dL; Unsaturated Iron Binding 283 ug/dL
[2020-12-10 09:08] LABS: Free T4 (Free Thyroxine) 1.03 ng/dL (0.71-1.85); Thyroid Stimulating Hormone 0.59 uIU/mL (0.32-4.0)
[2020-12-10] MEDS: Nicotine Polacrilex 2 MG GUM 4 MG BUCCAL ×4 (10:51→20:17)
[2020-12-10] MEDS: NaPROXEN 500 MG TABLET PO (13:12)
[2020-12-10 16:20] VITALS: BP 132/65; PULSE 76
[2020-12-10 16:23] VITALS: BP 132/65; PULSE 76; TEMP 36.3
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
[2020-12-10] MEDS: risperiDONE 1 MG TABLET PO (20:07)
[2020-12-10] MEDS: Divalproex Sodium ER 500 MG TAB.ER.24H 1000 MG PO (20:07)
[2020-12-10 20:08] VITALS: BP 111/60; PULSE 59
[2020-12-10] MEDS: Prazosin HCL 1 MG CAPSULE 2 MG PO (20:08)
[2020-12-10] MEDS: Mirtazapine 30 MG TABLET PO (20:08)
[2020-12-10] MEDS: Atorvastatin Calcium 10 MG TABLET PO (20:08)
[2020-12-11 06:00] VITALS: BP 124/63; PULSE 74; RESP 18; TEMP 36; O2SAT 98
[2020-12-11] MEDS: Tamsulosin HCL 0.4 MG CAPSULE PO (08:10)
[2020-12-11] MEDS: Baclofen 10 MG TABLET PO ×3 (08:10→20:30)
[2020-12-11] MEDS: Gabapentin 400 MG CAPSULE PO ×3 (08:10→20:30)
[2020-12-11] MEDS: FLUoxetine HCl 10 MG CAPSULE 30 MG PO (08:10)
[2020-12-11 10:06] LABS: Valproate 58.4 mcg/mL (50.0-100.0)
[2020-12-11] MEDS: Nicotine Polacrilex 2 MG GUM 4 MG BUCCAL ×4 (10:33→20:31)
[2020-12-11] MEDS: Naloxone HCl Nasal TAKE HOME 4 MG SPRAY NOSTRILALT (13:01)
--- NOTE | 2020-12-11 14:19 | P.PNPSI_ITS ---
Subjective Subjective Date of Service: 12/12/20 Reason For Visit: PTSD,recurrent severe major depression,opiate,coca Subjective Notes: Conditional Voluntary Interim History: Patient seen and discussed with team. Patient evaluated this morning and upon interview he reports his mood is I dont know. His sleep is okay and he is eating. He endorses GI distress, asks to trial zofran PRN for nausea. Complains of pain in his back and shoulders. Says he was having chills this morning and now feels hot. He has been isolative, lying in bed all day, did not attend group. In the milieu, patient is safe and appropriate in behavior. Denies SI/SIB/HI upon inquiry. Denies irritability or assaultive ideation. Says he feels safe. Mental Status Exam Mental Status Exam Narrative: Somewhat unkempt, overweight, lying down in bed. Poor eye contact, attentive. No Tics or Tremors. No abnormal involuntary movements. Agitated but cooperative, able to engage. Non-pressured speech, spontaneous with regular rate and rhythm, normal volume and prosody. No prolonged speech latency or dysarthria. Mood is ?I dont know,? affect is dysphoric. Currently denies SI/SIB/HI upon inquiry. Denies A/VH or delusional thought content. Thoughts are coherent, organized. No known cognitive or memory impairment. Insight/ Judgment fair and adequate. Diagnostics Vital Signs (24Hr): Vital Signs - 24 hr 12/10/20 16:20 12/10/20 16:23 12/10/20 20:08 Temperature 97.3 F Pulse Rate 76 76 59 Respiratory Rate Blood Pressure 132/65 132/65 111/60 Pulse Oximetry 12/11/20 06:00 Temperature 96.8 F Pulse Rate 74 Respiratory Rate 18 Blood Pressure 124/63 Pulse Oximetry 98 Body Mass Index 34.0 Labs Results: 12/08/20 14:31 12/08/20 14:31 Labs: Laboratory Results - last 48 hr 12/10/20 12/10/20 12/11/20 07:50 07:50 09:34 Estimat Average Glucose 117 Hemoglobin A1c % 5.7 Iron 90 TIBC 373 % Saturation 24 Unsat Iron Binding 283 Triglycerides 210 Cholesterol 180 LDL Cholesterol, Calc 105 HDL Cholesterol 33 TSH 0.59 Free T4 1.03 Valproic Acid 58.4 Medications Medications Current Medications Generic Name Dose Route Start Last Admin Trade Name Freq PRN Reason Stop Dose Admin Acetaminophen 650 mg 12/09/20 13:28 Acetaminophen 325 Mg Tablet PO Q6H PRN Headache/Pain Mild Scale (1-3) Al Hydroxide/Mg Hydroxide 30 ml 12/09/20 13:28 Magnesium Hydrox/Alum Hydrox 30 Ml Oral.Susp PO Q6H PRN Heartburn/Nausea Atorvastatin Calcium 10 mg 12/08/20 21:00 12/10/20 20:08 Atorvastatin Calcium 10 Mg Tablet PO 10 mg BEDTIME CORIE Administration Baclofen 10 mg 12/08/20 18:55 12/11/20 08:10 Baclofen 10 Mg Tablet PO 10 mg TID PRN Administration Back Pain Clonidine HCl 0.1 mg 12/08/20 18:55 12/10/20 16:20 Clonidine Hcl 0.1 Mg Tablet PO 0.1 mg TID PRN Administration anxiety Protocol Divalproex Sodium 1,000 mg 12/08/20 21:00 12/10/20 20:07 Divalproex Sodium Er 500 Mg Tab.Er.24h PO 1,000 mg BEDTIME CORIE Administration Fluoxetine HCl 30 mg 12/11/20 09:00 12/11/20 08:10 Fluoxetine Hcl 10 Mg Capsule PO 30 mg DAILY CORIE Administration Gabapentin 400 mg 12/08/20 21:00 12/11/20 08:10 Gabapentin 400 Mg Capsule PO 400 mg TID CORIE Administration Magnesium Hydroxide 30 ml 12/09/20 13:28 Milk Of Magnesia 30 Ml Oral.Susp PO DAILY PRN Constipation Methadone HCl 130 mg 12/09/20 09:00 12/11/20 08:10 Methadone Hcl 1 Mg/0.1 Ml Oral.Conc PO 130 mg DAILY CORIE Administration Mirtazapine 30 mg 12/08/20 21:00 12/10/20 20:08 Mirtazapine 30 Mg Tablet PO 30 mg BEDTIME CORIE Administration Naloxone HCl 4 mg 12/11/20 08:53 Naloxone Hcl Nasal 4 Mg [place] NOSTRILALT ONCE PRN opioid intoxication Naproxen 500 mg 12/08/20 18:55 12/10/20 13:12 Naproxen 500 Mg Tablet PO 500 mg 0900,2100 PRN Administration Pain Nicotine Polacrilex 4 mg 12/10/20 09:10 12/11/20 12:57 Nicotine Polacrilex 2 Mg Gum BUCCAL 4 mg Q2H PRN Administration Nicotine Cravings Prazosin HCl 2 mg 12/08/20 21:00 12/10/20 20:08 Prazosin Hcl 1 Mg Capsule PO 2 mg BEDTIME CORIE Administration Protocol Risperidone 1 mg 12/08/20 21:00 12/10/20 20:07 Risperidone 1 Mg Tablet PO 1 mg BEDTIME CORIE Administration Tamsulosin HCl 0.4 mg 12/09/20 09:00 12/11/20 08:10 Tamsulosin Hcl 0.4 Mg Capsule PO 0.4 mg DAILY CORIE Administration Trazodone HCl 50 mg 12/08/20 18:55 Trazodone Hcl 50 Mg Tablet PO BEDTIME PRN Insomnia Allergies Allergies Allergy/AdvReac Type Severity Reaction Status Date / Time shellfish derived Allergy Severe ANAPHAYLAXI Verified 08/04/20 22:58 [SHELLFISH DERIVED] A Assessment & Plan Assessment & Plan (1) MDD (major depressive disorder), recurrent episode, severe: Qualifiers: Psychotic features: without psychotic features Qualified Code(s): F33.2 - Major depressive disorder, recurrent severe without psychotic features Status: Chronic Code(s): F33.2 - Major depressive disorder, recurrent severe without psychotic features (2) PTSD (post-traumatic stress disorder): Status: Chronic Code(s): F43.10 - Post-traumatic stress disorder, unspecified (3) Opioid use disorder, moderate, in early remission, on maintenance therapy: Status: Acute Code(s): F11.21 - Opioid dependence, in remission (4) Cocaine use disorder, moderate, dependence: Status: Acute Code(s): F14.20 - Cocaine dependence, uncomplicated (5) Chronic pain: Status: Acute Code(s): G89.29 - Other chronic pain Assessment and Plan: Guillermo is a 35-year-old male with history of depression, PTSD, chronic SI, substance abuse, opiate dependent on methadone. He has multiple inpatient psych admissions for relapse, SI, depression, and mood dysregulation. He has chronic homelessness with minimal family support, financial stress. Hx of non-adherence with follow up outpatient appointments. He is tolerating medications well but continues to ask if his methadone can be increased, as he was taking 135 mg OP and wants to be put on 140 mg. Continues to reports sx of anxiety and depression. Will trial an increase in prozac as he denies this has been activating. Sleep is good, energy is low. 1. Continue MAT, on Methadone 130 mg 2. Continue Trazodone 50 mg QHS PRN for insomnia 3. COntinue Gabapentin 400 mg TID for pain, anxiety, mood 4. Continue Remeron 30 mg QHS for insomnia 5. Continue Depakote 1000 mg QHS for mood regulation, VPA level pending 6. Increase Prozac to 40 mg QD to target residual depression sx 7. Continue Risperdal 1 mg QHS for mood regulation 8. COntinue Prazosin 2 mg QHS for hyperarousal, PTSD 9. Continue Clonidine 0.1 mg TID PRN for withdrawal sx 10. Medical consult to addiction services requested to review methadone dose Monitor response to medications. Monitor for safety in the milieu. Discharge on stabilization. Patient seen. Chart reviewed. Discussed with team.?? Greater than 50% of the session was spent on counseling and/or coordination of care Reason for contiued inpatient stay Substantial Risk for: rapid decompensation and med/psych decompensation
[2020-12-11 16:27] VITALS: BP 122/73; PULSE 53
[2020-12-11] MEDS: cloNIDine HCL 0.1 MG TABLET PO (16:27)
[2020-12-11] MEDS: Ondansetron ODT 8 MG TAB.RAPDIS TRANSLINGU (16:46)
[2020-12-11 19:40] VITALS: BP 114/70; PULSE 60; TEMP 36.4
[2020-12-11] MEDS: Atorvastatin Calcium 10 MG TABLET PO (20:30)
[2020-12-11] MEDS: Prazosin HCL 1 MG CAPSULE 2 MG PO (20:30)
[2020-12-11] MEDS: risperiDONE 1 MG TABLET PO (20:30)
[2020-12-11] MEDS: Mirtazapine 30 MG TABLET PO (20:30)
[2020-12-11] MEDS: Divalproex Sodium ER 500 MG TAB.ER.24H 1000 MG PO (20:30)
[2020-12-11] MEDS: traZODone HCL 50 MG TABLET PO (20:30)
[2020-12-12 03:57] LABS: Folate 9.5 ng/mL (> or = 4.0); Vitamin B12 530 pg/mL (200-900)
[2020-12-12 06:35] VITALS: BP 107/57; PULSE 62; TEMP 36.6
[2020-12-12] MEDS: Gabapentin 400 MG CAPSULE PO ×3 (07:59→21:02)
[2020-12-12] MEDS: Tamsulosin HCL 0.4 MG CAPSULE PO (07:59)
[2020-12-12] MEDS: FLUoxetine HCl 20 MG CAPSULE 40 MG PO (07:59)
[2020-12-12] MEDS: Nicotine Polacrilex 2 MG GUM 4 MG BUCCAL ×3 (08:55→18:11)
[2020-12-12] MEDS: Baclofen 10 MG TABLET PO ×2 (08:55→21:08)
--- NOTE | 2020-12-12 11:39 | P.PNPSI_ITS ---
Subjective Subjective Date of Service: 12/12/20 Reason For Visit: PTSD,recurrent severe major depression,opiate,coca Interim History: Patient seen. Chart reviewed. Discussed with team.?? Patient lying in bed on approach, calm, awake and alert. Patient reviewed some of his recent history and said that since last discharge, he had been living at his mother's and remained sober and taking his meds. He said his depression pretty quickly creeped back in and remained. He said he did not relapse except for the 1 day in which he overdosed. Patient reports that he is still feeling depressed and wants to talk about medication changes. He denies any SI which he says has fully resolved. Home Theatre Technician discussed meds with patient agrees to increase Depakote to 1500 mg q.h.s.. Mental Status Exam Mental Status Exam Narrative: Pt is alert and oriented; behavior is cooperative and calm; patient is not in distress; dressed in hospital gown with adequate hygiene; mood is described as depressed and affect somewhat downcast, dysphoric; eye contact appropriate; Speech is a little slow and soft; psychomotor retardation present; thought process is organized and goal directed. Thought content is on treatment and relevant to pertinent topics and without any delusional content, paranoid ideations or grandiosity; denies any SI/HI. There is no evidence of perceptual disturbance. ?Patients insight and judgment appear impaired. Diagnostics Vital Signs (24Hr): Vital Signs - 24 hr 12/11/20 16:27 12/11/20 19:40 12/12/20 06:35 Temperature 97.5 F 97.8 F Pulse Rate 53 60 62 Blood Pressure 122/73 114/70 107/57 L Body Mass Index 34.0 Labs Results: 12/08/20 14:31 12/08/20 14:31 Labs: Laboratory Results - last 48 hr 12/10/20 12/11/20 07:50 09:34 Vitamin B12 530 Folate 9.5 Valproic Acid 58.4 Medications Medications Current Medications Generic Name Dose Route Start Last Admin Trade Name Freq PRN Reason Stop Dose Admin Acetaminophen 650 mg 12/09/20 13:28 Acetaminophen 325 Mg Tablet PO Q6H PRN Headache/Pain Mild Scale (1-3) Al Hydroxide/Mg Hydroxide 30 ml 12/09/20 13:28 Magnesium Hydrox/Alum Hydrox 30 Ml Oral.Susp PO Q6H PRN Heartburn/Nausea Atorvastatin Calcium 10 mg 12/08/20 21:00 12/11/20 20:30 Atorvastatin Calcium 10 Mg Tablet PO 10 mg BEDTIME CORIE Administration Baclofen 10 mg 12/08/20 18:55 12/12/20 08:55 Baclofen 10 Mg Tablet PO 10 mg TID PRN Administration Back Pain Clonidine HCl 0.1 mg 12/08/20 18:55 12/11/20 16:27 Clonidine Hcl 0.1 Mg Tablet PO 0.1 mg TID PRN Administration anxiety Protocol Divalproex Sodium 1,000 mg 12/08/20 21:00 12/11/20 20:30 Divalproex Sodium Er 500 Mg Tab.Er.24h PO 1,000 mg BEDTIME CORIE Administration Fluoxetine HCl 40 mg 12/12/20 09:00 12/12/20 07:59 Fluoxetine Hcl 20 Mg Capsule PO 40 mg DAILY CORIE Administration Gabapentin 400 mg 12/08/20 21:00 12/12/20 07:59 Gabapentin 400 Mg Capsule PO 400 mg TID CORIE Administration Magnesium Hydroxide 30 ml 12/09/20 13:28 Milk Of Magnesia 30 Ml Oral.Susp PO DAILY PRN Constipation Methadone HCl 130 mg 12/09/20 09:00 12/12/20 07:58 Methadone Hcl 1 Mg/0.1 Ml Oral.Conc PO 130 mg DAILY CORIE Administration Mirtazapine 30 mg 12/08/20 21:00 12/11/20 20:30 Mirtazapine 30 Mg Tablet PO 30 mg BEDTIME CORIE Administration Naloxone HCl 4 mg 12/11/20 08:53 Naloxone Hcl Nasal 4 Mg [place] NOSTRILALT ONCE PRN opioid intoxication Naproxen 500 mg 12/08/20 18:55 12/10/20 13:12 Naproxen 500 Mg Tablet PO 500 mg 0900,2100 PRN Administration Pain Nicotine Polacrilex 4 mg 12/10/20 09:10 12/12/20 08:55 Nicotine Polacrilex 2 Mg Gum BUCCAL 4 mg Q2H PRN Administration Nicotine Cravings Ondansetron HCl 8 mg 12/11/20 16:07 12/11/20 16:46 Ondansetron Odt 8 Mg Tab.Rapdis TRANSLINGU 8 mg Q12H PRN Administration Nausea Prazosin HCl 2 mg 12/08/20 21:00 12/11/20 20:30 Prazosin Hcl 1 Mg Capsule PO 2 mg BEDTIME CORIE Administration Protocol Risperidone 1 mg 12/08/20 21:00 12/11/20 20:30 Risperidone 1 Mg Tablet PO 1 mg BEDTIME CORIE Administration Tamsulosin HCl 0.4 mg 12/09/20 09:00 12/12/20 07:59 Tamsulosin Hcl 0.4 Mg Capsule PO 0.4 mg DAILY CORIE Administration Trazodone HCl 50 mg 12/08/20 18:55 12/11/20 20:30 Trazodone Hcl 50 Mg Tablet PO 50 mg BEDTIME PRN Administration Insomnia Allergies Allergies Allergy/AdvReac Type Severity Reaction Status Date / Time shellfish derived Allergy Severe ANAPHAYLAXI Verified 08/04/20 22:58 [SHELLFISH DERIVED] A Assessment & Plan Assessment & Plan (1) MDD (major depressive disorder), recurrent episode, severe: Qualifiers: Psychotic features: without psychotic features Qualified Code(s): F33.2 - Major depressive disorder, recurrent severe without psychotic features Status: Chronic Code(s): F33.2 - Major depressive disorder, recurrent severe without psychotic features (2) PTSD (post-traumatic stress disorder): Status: Chronic Code(s): F43.10 - Post-traumatic stress disorder, unspecified (3) Opioid use disorder, moderate, in early remission, on maintenance therapy: Status: Inactive Code(s): F11.21 - Opioid dependence, in remission (4) Cocaine use disorder, moderate, dependence: Status: Acute Code(s): F14.20 - Cocaine dependence, uncomplicated (5) Chronic pain: Status: Acute Code(s): G89.29 - Other chronic pain Assessment and Plan: Guillermo is a 35-year-old male with history of depression, PTSD, chronic SI, substance abuse, opiate dependent on methadone. He has multiple inpatient psych admissions for relapse, SI, depression, and mood dysregulation. He has chronic homelessness with minimal family support, financial stress. Hx of non-adherence with follow up outpatient appointments. He is tolerating medications well but continues to ask if his methadone can be increased, as he was taking 135 mg OP and wants to be put on 140 mg. Continues to reports sx of anxiety and depression. Will trial an increase in prozac as he denies this has been activating. Sleep is good, energy is low. Depressed but SI resolved Methadone increased to 140 mg via substance abuse consult Prozac increased to 40 mg to target depression Depakote also increased to 1500 mg q.h.s. for ongoing depression as therapeutic level within window but low Labs pending 1. Methadone 140 mg 2. Continue Trazodone 50 mg QHS PRN for insomnia 3. COntinue Gabapentin 400 mg TID for pain, anxiety, mood 4. Continue Remeron 30 mg QHS for insomnia 7. Continue Risperdal 1 mg QHS for mood regulation 8. COntinue Prazosin 2 mg QHS for hyperarousal, PTSD 9. Continue Clonidine 0.1 mg TID PRN for withdrawal sx Monitor response to medications. Monitor for safety in the milieu. Discharge on stabilization. Greater than 50% of the session was spent on counseling and/or coordination of care Reason for contiued inpatient stay Substantial Risk for: rapid decompensation
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
[2020-12-12 17:13] VITALS: BP 116/55; PULSE 58; RESP 16; TEMP 36.6; O2SAT 98
[2020-12-12] MEDS: Atorvastatin Calcium 10 MG TABLET PO (21:02)
[2020-12-12] MEDS: Divalproex Sodium ER 500 MG TAB.ER.24H 1500 MG PO (21:02)
[2020-12-12] MEDS: risperiDONE 1 MG TABLET PO (21:02)
[2020-12-12] MEDS: Prazosin HCL 1 MG CAPSULE 2 MG PO (21:02)
[2020-12-12] MEDS: Mirtazapine 30 MG TABLET PO (21:02)
[2020-12-12] MEDS: cloNIDine HCL 0.1 MG TABLET PO (21:08)
[2020-12-13 05:45] VITALS: BP 116/66; PULSE 76; RESP 18; TEMP 36.4; O2SAT 97
[2020-12-13] MEDS: Tamsulosin HCL 0.4 MG CAPSULE PO (08:42)
[2020-12-13] MEDS: FLUoxetine HCl 20 MG CAPSULE 40 MG PO (08:42)
[2020-12-13] MEDS: Gabapentin 400 MG CAPSULE PO ×3 (08:42→20:02)
[2020-12-13] MEDS: Baclofen 10 MG TABLET PO (10:00)
[2020-12-13] MEDS: Nicotine Polacrilex 2 MG GUM 4 MG BUCCAL ×3 (10:16→18:19)
[2020-12-13] MEDS: Milk of Magnesia 30 ML ORAL.SUSP PO (13:33)
--- NOTE | 2020-12-13 14:13 | HO.PSYCHPN ---
Subjective Subjective Date of Service: 12/13/20 Reason For Visit: PTSD,recurrent severe major depression,opiate,coca Interim History: pt seen on 12/13/20 Patient reports that he is depressed. He says he is feeling very depressed and is somewhat surprised by this. He said that he forced himself to take a shower today and force himself to go to groups which was difficult for him since most others were upbeat. Patient shared that even his mother said she was getting depressed watching him and that this past week weeks at home he was not showering, sleeping on the floor and overall not taking care of himself. Patient shares more was history how he left home at 13 years old and in hindsight realizes how much natural development he missed trying to live on his own. He says now living at his mom's it is as if he is trying to get back the mother son relationship he should have had as a teenager but that for obvious reasons it is not possible. He shares that his relapse is due to the fact that he does not have enough to do, is feeling bored and that the thought occurs to him to use and he starts to say why not. Patient gave newspaper writer verbal permission to call his mother Claritza, and gave newspaper writer her phone number, saying it was fine to discuss his case. Health And Safety Coordinator also discussed patient's medication. He said he was started on Depakote few months ago for mood lability which he said thinks has helped somewhat. Patient agrees to push himself to continue going to groups and engage in milieu therapy. He denies any SI but says that sometimes he starts feeling so hopeless he figures why bother continue to live. Strong protective factor is how this would affect his mother as well as a resiliency and remaining hope that things can get better. Mental Status Exam Mental Status Exam Narrative: Pt is alert and oriented; behavior is cooperative and calm; patient is not in distress; dressed in hospital gown with adequate hygiene; mood is described as depressed and affect remains downcast and dysphoric; eye contact appropriate; Speech is normal rate, rhythm and prosody. Some psychomotor retardation present but improving; thought process is organized and goal directed. Thought content is on treatment and relevant to pertinent topics and without any delusional content, paranoid ideations or grandiosity; denies any SI/HI. There is no evidence of perceptual disturbance. ?Patients insight and judgment appear impaired but improving. Diagnostics Vital Signs (24Hr): Vital Signs - 24 hr 12/12/20 17:13 12/13/20 05:45 Temperature 97.8 F 97.6 F Pulse Rate 58 76 Respiratory Rate 16 18 Blood Pressure 116/55 L 116/66 Pulse Oximetry 98 97 Body Mass Index 34.0 Labs Results: 12/08/20 14:31 12/08/20 14:31 Labs: Laboratory Results - last 48 hr 12/10/20 07:50 Vitamin B12 530 Folate 9.5 Medications Medications Current Medications Generic Name Dose Route Start Last Admin Trade Name Freq PRN Reason Stop Dose Admin Acetaminophen 650 mg 12/09/20 13:28 Acetaminophen 325 Mg Tablet PO Q6H PRN Headache/Pain Mild Scale (1-3) Al Hydroxide/Mg Hydroxide 30 ml 12/09/20 13:28 Magnesium Hydrox/Alum Hydrox 30 Ml Oral.Susp PO Q6H PRN Heartburn/Nausea Atorvastatin Calcium 10 mg 12/08/20 21:00 12/12/20 21:02 Atorvastatin Calcium 10 Mg Tablet PO 10 mg BEDTIME CORIE Administration Baclofen 10 mg 12/08/20 18:55 12/13/20 10:00 Baclofen 10 Mg Tablet PO 10 mg TID PRN Administration Back Pain Clonidine HCl 0.1 mg 12/08/20 18:55 12/12/20 21:08 Clonidine Hcl 0.1 Mg Tablet PO 0.1 mg TID PRN Administration anxiety Protocol Divalproex Sodium 1,500 mg 12/12/20 21:00 12/12/20 21:02 Divalproex Sodium Er 500 Mg Tab.Er.24h PO 1,500 mg BEDTIME CORIE Administration Fluoxetine HCl 40 mg 12/12/20 09:00 12/13/20 08:42 Fluoxetine Hcl 20 Mg Capsule PO 40 mg DAILY CORIE Administration Gabapentin 400 mg 12/08/20 21:00 12/13/20 08:42 Gabapentin 400 Mg Capsule PO 400 mg TID CORIE Administration Magnesium Hydroxide 30 ml 12/09/20 13:28 12/13/20 13:33 Milk Of Magnesia 30 Ml Oral.Susp PO 30 ml DAILY PRN Administration Constipation Methadone HCl 140 mg 12/13/20 09:00 12/13/20 08:41 Methadone Hcl 1 Mg/0.1 Ml Oral.Conc PO 140 mg DAILY CORIE Administration Mirtazapine 30 mg 12/08/20 21:00 12/12/20 21:02 Mirtazapine 30 Mg Tablet PO 30 mg BEDTIME CORIE Administration Naloxone HCl 4 mg 12/11/20 08:53 Naloxone Hcl Nasal 4 Mg [place] NOSTRILALT ONCE PRN opioid intoxication Naproxen 500 mg 12/08/20 18:55 12/10/20 13:12 Naproxen 500 Mg Tablet PO 500 mg 0900,2100 PRN Administration Pain Nicotine Polacrilex 4 mg 12/10/20 09:10 12/13/20 13:33 Nicotine Polacrilex 2 Mg Gum BUCCAL 4 mg Q2H PRN Administration Nicotine Cravings Ondansetron HCl 8 mg 12/11/20 16:07 12/11/20 16:46 Ondansetron Odt 8 Mg Tab.Rapdis TRANSLINGU 8 mg Q12H PRN Administration Nausea Prazosin HCl 2 mg 12/08/20 21:00 12/12/20 21:02 Prazosin Hcl 1 Mg Capsule PO 2 mg BEDTIME CORIE Administration Protocol Risperidone 1 mg 12/08/20 21:00 12/12/20 21:02 Risperidone 1 Mg Tablet PO 1 mg BEDTIME CORIE Administration Tamsulosin HCl 0.4 mg 12/09/20 09:00 12/13/20 08:42 Tamsulosin Hcl 0.4 Mg Capsule PO 0.4 mg DAILY CORIE Administration Trazodone HCl 50 mg 12/08/20 18:55 12/11/20 20:30 Trazodone Hcl 50 Mg Tablet PO 50 mg BEDTIME PRN Administration Insomnia Allergies Allergies Allergy/AdvReac Type Severity Reaction Status Date / Time shellfish derived Allergy Severe ANAPHAYLAXI Verified 08/04/20 22:58 [SHELLFISH DERIVED] A Assessment & Plan Assessment & Plan (1) MDD (major depressive disorder), recurrent episode, severe: Qualifiers: Psychotic features: without psychotic features Qualified Code(s): F33.2 - Major depressive disorder, recurrent severe without psychotic features Status: Chronic Code(s): F33.2 - Major depressive disorder, recurrent severe without psychotic features (2) PTSD (post-traumatic stress disorder): Status: Chronic Code(s): F43.10 - Post-traumatic stress disorder, unspecified (3) Opioid use disorder, moderate, in early remission, on maintenance therapy: Status: Inactive Code(s): F11.21 - Opioid dependence, in remission (4) Cocaine use disorder, moderate, dependence: Status: Acute Code(s): F14.20 - Cocaine dependence, uncomplicated (5) Chronic pain: Status: Acute Code(s): G89.29 - Other chronic pain Assessment and Plan: Guillermo is a 35-year-old male with history of depression, PTSD, chronic SI, substance abuse, opiate dependent on methadone. He has multiple inpatient psych admissions for relapse, SI, depression, and mood dysregulation. He has chronic homelessness with minimal family support, financial stress. Hx of non-adherence with follow up outpatient appointments. He is tolerating medications remains depressed but SI resolved. forthcoming in discussions called and left message for mother (pt gave verbal ADAM consent) PLAN: -labs pending for 12/15 which include valproic acid level and associated labs work Methadone increased to 140 mg via substance abuse consult Prozac increased to 40 mg to target depression Depakote also increased to 1500 mg q.h.s. for ongoing depression as therapeutic level within window but low Labs pending 1. Methadone 140 mg 2. Continue Trazodone 50 mg QHS PRN for insomnia 3. COntinue Gabapentin 400 mg TID for pain, anxiety, mood 4. Continue Remeron 30 mg QHS for insomnia 7. Continue Risperdal 1 mg QHS for mood regulation 8. COntinue Prazosin 2 mg QHS for hyperarousal, PTSD 9. Continue Clonidine 0.1 mg TID PRN for withdrawal sx Monitor response to medications. Monitor for safety in the milieu. Discharge on stabilization. Greater than 50% of the session was spent on counseling and/or coordination of care Reason for contiued inpatient stay Substantial Risk for: rapid decompensation
[2020-12-13] MEDS: NaPROXEN 500 MG TABLET PO (17:27)
[2020-12-13 18:00] VITALS: BP 133/61; PULSE 62; TEMP 37
[2020-12-13 20:00] VITALS: BP 133/61; PULSE 62
[2020-12-13] MEDS: Prazosin HCL 1 MG CAPSULE 2 MG PO (20:00)
[2020-12-13] MEDS: Atorvastatin Calcium 10 MG TABLET PO (20:01)
[2020-12-13] MEDS: Mirtazapine 30 MG TABLET PO (20:02)
[2020-12-13] MEDS: risperiDONE 1 MG TABLET PO (20:02)
[2020-12-13] MEDS: Divalproex Sodium ER 500 MG TAB.ER.24H 1500 MG PO (20:03)
[2020-12-14] MEDS: Nicotine Polacrilex 2 MG GUM 4 MG BUCCAL ×5 (00:56→16:49)
[2020-12-14 06:00] VITALS: BP 105/55; PULSE 61; RESP 18; TEMP 35.8; O2SAT 98
[2020-12-14] MEDS: Tamsulosin HCL 0.4 MG CAPSULE PO (08:12)
[2020-12-14] MEDS: Gabapentin 400 MG CAPSULE PO ×3 (08:12→20:22)
[2020-12-14] MEDS: FLUoxetine HCl 20 MG CAPSULE 40 MG PO (08:12)
[2020-12-14] MEDS: Baclofen 10 MG TABLET PO (09:33)
[2020-12-14 09:34] VITALS: BP 144/63; PULSE 96
[2020-12-14] MEDS: cloNIDine HCL 0.1 MG TABLET PO (09:34)
[2020-12-14 19:46] VITALS: BP 108/59; PULSE 59; RESP 16; O2SAT 96
[2020-12-14] MEDS: Atorvastatin Calcium 10 MG TABLET PO (20:22)
[2020-12-14] MEDS: Prazosin HCL 1 MG CAPSULE 2 MG PO (20:22)
[2020-12-14] MEDS: risperiDONE 1 MG TABLET PO (20:23)
[2020-12-14] MEDS: Divalproex Sodium ER 500 MG TAB.ER.24H 1500 MG PO (20:23)
[2020-12-14] MEDS: Mirtazapine 15 MG TABLET 45 MG PO (20:30)
[2020-12-15] MEDS: Nicotine Polacrilex 2 MG GUM 4 MG BUCCAL ×4 (02:38→15:11)
[2020-12-15 06:00] VITALS: BP 115/56; PULSE 67; RESP 16; TEMP 36.4; O2SAT 97
[2020-12-15 07:00] VITALS: BMI 35.9
[2020-12-15 08:25] LABS: MANUAL DIFF FLAG NO
[2020-12-15 08:31] LABS: Basophils Percent Auto 0.2 % (0-2); Eosinophils Absolute Auto 0.3 X10*3/uL (0.0-0.4); Eosinophils Percent Auto 4.3 % (0-4); Hemoglobin 13.1 g/dl (14.0-18.0); Imm Gran Abs Auto 0.08 X10*3/uL (0.00-0.03); Imm Gran Pct Auto 1.2 % (0.0-0.4); Lymphocytes Absolute Auto 2.3 X10*3/uL (1.2-4.9); Lymphocytes Percent Auto 35.5 % (20-40); Mean Corpuscular HGB Conc 32.8 g/dl (31.0-36.0); Mean Corpuscular Hemoglobin 27.2 pg (27.0-33.0); Monocytes Absolute Auto 0.9 X10*3/uL (0.1-1.2); Neutrophils Percent Auto 44.8 % (45-73); Platelet Count 184 X10*3/uL (160-400); Red Blood Count 4.82 X10*6/uL (4.60-5.80); Red Cell Distribution Width 13.9 % (11.0-16.0); White Blood Count 6.6 X10*3/uL (4.8-10.8)
[2020-12-15] MEDS: Gabapentin 400 MG CAPSULE PO ×3 (08:33→19:50)
[2020-12-15] MEDS: FLUoxetine HCl 20 MG CAPSULE 40 MG PO (08:33)
[2020-12-15] MEDS: Tamsulosin HCL 0.4 MG CAPSULE PO (08:33)
[2020-12-15 08:38] LABS: Ammonia 52 umol/L (13-55)
--- NOTE | 2020-12-15 09:01 | P.PNPSI_ITS ---
Subjective Subjective Date of Service: 12/14/20 Reason For Visit: PTSD,recurrent severe major depression,opiate,coca Interim History: pt seen on 12/14 Patient reports continued depression. He intermittently has a passive wish, but no active SI, no intention or plans. Patient is reflective and thinking about his choices in life and where it has brought him. Patient reiterates that he has never really had depression like this before, that it has usually been situational and resolved fairly quickly; he was working and overall enjoying life saying that he had ?more clean time then he was using. He thinks that 1 reason depression has been building up is that due to COVID, he lost his job then has lost his apartment and then car; without these things it became easier to relapse, harder to resist substance abuse. Patient said he would very much like to have work again. He did call his old boss but found that his employer is now incarcerated. 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 Track Repair Laborer discussed patient going to a program and while he further stabilizes he can look for a job. Patient like this idea. Currently he denies any medication side effects. He asks for hydroxyzine to be added to help with anxiety. He also agrees to increasing Remeron to 45 mg for continued d epression/anxiety. Medication Compliance: Yes Side effects from medications: No Attending Groups: Intermittent Mental Status Exam Mental Status Exam Narrative: Pt is alert and oriented; behavior is cooperative and calm; patient i s not in distress; dressed in hospital gown with adequate hygiene; mood is described as depressed and affect congruent; eye contact appropriate; Speech is normal rate, rhythm and prosody. Some psychomotor retardation still present but improving; thought process is organized and goal directed. Thought content is on treatment and relevant to pertinent topics and without any delusional content, paranoid ideations or grandiosity; denies any SI/HI. There is no evidence of perceptual disturbance. ?Patients insight and judgment appear improving to fair. Diagnostics Vital Signs (24Hr): Vital Signs - 24 hr 12/14/20 09:34 12/14/20 19:46 12/15/20 06:00 Temperature 97.5 F Pulse Rate 96 59 67 Respiratory Rate 16 16 Blood Pressure 144/63 H 108/59 L 115/56 L Pulse Oximetry 96 97 Body Mass Index 34.0 Labs Results: 12/15/20 08:04 12/08/20 14:31 Labs: Laboratory Results - last 48 hr 12/15/20 12/15/20 08:04 08:04 WBC 6.6 RBC 4.82 Hgb 13.1 L Hct 40.0 L MCV 83.0 MCH 27.2 MCHC 32.8 RDW 13.9 Plt Count 184 D MPV 10.0 Immature Gran % (Auto) 1.2 H Neut % (Auto) 44.8 L Lymph % (Auto) 35.5 [place] % (Auto) 14.0 H Eos % (Auto) 4.3 H Baso % (Auto) 0.2 Lymph # (Auto) 2.3 [place] # (Auto) 0.9 Eos # (Auto) 0.3 Baso # (Auto) 0.0 Abs Immat Gran (auto) 0.08 H Absolute Neuts (auto) 3.0 Absolute Nucleated RBC 0.000 Nucleated RBC % (auto) 0.0 Ammonia 52 Medications Medications Current Medications Generic Name Dose Route Start Last Admin Trade Name Freq PRN Reason Stop Dose Admin Acetaminophen 650 mg 12/09/20 13:28 Acetaminophen 325 Mg Tablet PO Q6H PRN Headache/Pain Mild Scale (1-3) Al Hydroxide/Mg Hydroxide 30 ml 12/09/20 13:28 Magnesium Hydrox/Alum Hydrox 30 Ml Oral.Susp PO Q6H PRN Heartburn/Nausea Atorvastatin Calcium 10 mg 12/08/20 21:00 12/14/20 20:22 Atorvastatin Calcium 10 Mg Tablet PO 10 mg BEDTIME CORIE Administration Baclofen 10 mg 12/08/20 18:55 12/14/20 09:33 Baclofen 10 Mg Tablet PO 10 mg TID PRN Administration Back Pain Clonidine HCl 0.1 mg 12/08/20 18:55 12/14/20 09:34 Clonidine Hcl 0.1 Mg Tablet PO 0.1 mg TID PRN Administration anxiety Protocol Divalproex Sodium 1,500 mg 12/12/20 21:00 12/14/20 20:23 Divalproex Sodium Er 500 Mg Tab.Er.24h PO 1,500 mg BEDTIME CORIE Administration Fluoxetine HCl 40 mg 12/12/20 09:00 12/15/20 08:33 Fluoxetine Hcl 20 Mg Capsule PO 40 mg DAILY CORIE Administration Gabapentin 400 mg 12/08/20 21:00 12/15/20 08:33 Gabapentin 400 Mg Capsule PO 400 mg TID CORIE Administration Hydroxyzine HCl 50 mg 12/14/20 14:59 Hydroxyzine Hcl 50 Mg Tablet PO QID PRN Anxiety Magnesium Hydroxide 30 ml 12/09/20 13:28 12/13/20 13:33 Milk Of Magnesia 30 Ml Oral.Susp PO 30 ml DAILY PRN Administration Constipation Methadone HCl 140 mg 12/13/20 09:00 12/15/20 08:33 Methadone Hcl 1 Mg/0.1 Ml Oral.Conc PO 140 mg DAILY CORIE Administration Mirtazapine 45 mg 12/14/20 21:00 12/14/20 20:30 Mirtazapine 15 Mg Tablet PO 45 mg BEDTIME CORIE Administration Naloxone HCl 4 mg 12/11/20 08:53 Naloxone Hcl Nasal 4 Mg [place] NOSTRILALT ONCE PRN opioid intoxication Naproxen 500 mg 12/08/20 18:55 12/13/20 17:27 Naproxen 500 Mg Tablet PO 500 mg 0900,2100 PRN Administration Pain Nicotine Polacrilex 4 mg 12/10/20 09:10 12/15/20 02:38 Nicotine Polacrilex 2 Mg Gum BUCCAL 4 mg Q2H PRN Administration Nicotine Cravings Ondansetron HCl 8 mg 12/11/20 16:07 12/11/20 16:46 Ondansetron Odt 8 Mg Tab.Rapdis TRANSLINGU 8 mg Q12H PRN Administration Nausea Prazosin HCl 2 mg 12/08/20 21:00 12/14/20 20:22 Prazosin Hcl 1 Mg Capsule PO 2 mg BEDTIME CORIE Administration Protocol Risperidone 1 mg 12/08/20 21:00 12/14/20 20:23 Risperidone 1 Mg Tablet PO 1 mg BEDTIME CORIE Administration Tamsulosin HCl 0.4 mg 12/09/20 09:00 12/15/20 08:33 Tamsulosin Hcl 0.4 Mg Capsule PO 0.4 mg DAILY CORIE Administration Trazodone HCl 50 mg 12/08/20 18:55 12/11/20 20:30 Trazodone Hcl 50 Mg Tablet PO 50 mg BEDTIME PRN Administration Insomnia Allergies Allergies Allergy/AdvReac Type Severity Reaction Status Date / Time shellfish derived Allergy Severe ANAPHAYLAXI Verified 08/04/20 22:58 [SHELLFISH DERIVED] A Assessment & Plan Assessment & Plan (1) MDD (major depressive disorder), recurrent episode, severe: Qualifiers: Psychotic features: without psychotic features Qualified Code(s): F33.2 - Major depressive disorder, recurrent severe without psychotic features Status: Chronic Code(s): F33.2 - Major depressive disorder, recurrent severe without psychotic features (2) PTSD (post-traumatic stress disorder): Status: Chronic Code(s): F43.10 - Post-traumatic stress disorder, unspecified (3) Opioid use disorder, moderate, in early remission, on maintenance therapy: Status: Inactive Code(s): F11.21 - Opioid dependence, in remission (4) Cocaine use disorder, moderate, dependence: Status: Acute Code(s): F14.20 - Cocaine dependence, uncomplicated (5) Chronic pain: Status: Acute Code(s): G89.29 - Other chronic pain Assessment and Plan: Guillermo is a 35-year-old male with history of depression, PTSD, chronic SI, substance abuse, opiate dependent on methadone. He has multiple inpatient psych admissions for relapse, SI, depression, and mood dysregulation. He has chronic homelessness with minimal family support, financial stress. Hx of non-adherence with follow up outpatient appointments. He is tolerating medications remains depressed but SI resolved. mood improving slowly forthcoming in discussions called and left message for mother (pt gave verbal ADAM consent) PLAN: -labs pending for 12/15 which include valproic acid level and associated labs work Increased Remeron to 45 mg for anxiety depression Added hydroxyzine 50 mg for anxiety p.r.n. Methadone increased to 140 mg via substance abuse consult Prozac increased to 40 mg to target depression Depakote also increased to 1500 mg q.h.s. for ongoing depression as therapeutic level within window but low Labs pending 1. Methadone 140 mg 2. Continue Trazodone 50 mg QHS PRN for insomnia 3. COntinue Gabapentin 400 mg TID for pain, anxiety, mood 7. Continue Risperdal 1 mg QHS for mood regulation 8. COntinue Prazosin 2 mg QHS for hyperarousal, PTSD 9. Continue Clonidine 0.1 mg TID PRN for withdrawal sx Monitor response to medications. Monitor for safety in the milieu. Discharge on stabilization. Greater than 50% of the session was spent on counseling and/or coordination of care Reason for contiued inpatient stay Substantial Risk for: other
[2020-12-15 09:09] LABS: Alanine Aminotransferase 83 U/L (0-40); Albumin Level 3.9 g/dL (3.5-5.0); Alkaline Phosphatase 115 U/L (39-117); Aspartate Amino Transferase 35 U/L (5-37); Bilirubin Direct < 0.2 mg/dL (0.0-0.5); Bilirubin Total < 0.2 mg/dL (0.0-1.0); Total Protein 6.9 g/dL (6.5-8.0)
[2020-12-15] MEDS: Baclofen 10 MG TABLET PO ×2 (09:20→15:11)
[2020-12-15 11:44] VITALS: BP 140/71; PULSE 89
[2020-12-15] MEDS: cloNIDine HCL 0.1 MG TABLET PO (11:44)
[2020-12-15] MEDS: hydrOXYzine HCL 50 MG TABLET PO (11:47)
[2020-12-15 14:03] LABS: Valproate 59.7 mcg/mL (50.0-100.0)
--- NOTE | 2020-12-15 16:31 | HO.PSYCHPN ---
Subjective Subjective Date of Service: 12/15/20 Reason For Visit: PTSD,recurrent severe major depression,opiate,coca Interim History: Patient reports continued depression. He says he still intermittently has passive wish, but not all the time and no active SI. Patient said he earlier made a joke to criminal justice social worker about getting a lethal injection, but said he was just goofing around and is currently trying to make sense of his depression and focus on treatment. He says that his depression is worse than it's ever been which she says started with the pandemic and losing much of his normal life but has persisted; he agrees that having a job and being sober would definitely less in it but he thinks perhaps medication change might be beneficial. To that and he agreed to trial of Wellbutrin and to taper down and potentially discontinue Remeron or any other medication technical document writer thinks is worth lowering or discontinuing. Patient reports that he heard his mother was hospitalized at [facility]; she has had 2 kidney transplants and had some complication. He did talk with her physician who said that she is currently doing well and he plans to talk with her later today. Patient said he did go to a group today and will continue to push himself to engage Mental Status Exam Mental Status Exam Narrative: Pt is alert and oriented; behavior is cooperative and calm; patient is not in distress; dressed in hospital gown with adequate hygiene; mood is described as depressed and affect congruent; eye contact appropriate; Speech is normal rate, rhythm and prosody. Some psychomotor retardation still present but improving; thought process is organized and goal directed. Thought content is on treatment and relevant to pertinent topics and without any delusional content, paranoid ideations or grandiosity; denies any SI/HI. There is no evidence of perceptual disturbance. ?Patients insight and judgment appear improving. Diagnostics Vital Signs (24Hr): Vital Signs - 24 hr 12/14/20 19:46 12/15/20 06:00 12/15/20 11:44 Temperature 97.5 F Pulse Rate 59 67 89 Respiratory Rate 16 16 Blood Pressure 108/59 L 115/56 L 140/71 H Pulse Oximetry 96 97 Body Mass Index 35.9 Labs Results: 12/15/20 08:04 12/08/20 14:31 Labs: Laboratory Results - last 48 hr 12/15/20 12/15/20 12/15/20 08:04 08:04 08:04 WBC 6.6 RBC 4.82 Hgb 13.1 L Hct 40.0 L MCV 83.0 MCH 27.2 MCHC 32.8 RDW 13.9 Plt Count 184 D MPV 10.0 Immature Gran % (Auto) 1.2 H Neut % (Auto) 44.8 L Lymph % (Auto) 35.5 [place] % (Auto) 14.0 H Eos % (Auto) 4.3 H Baso % (Auto) 0.2 Lymph # (Auto) 2.3 [place] # (Auto) 0.9 Eos # (Auto) 0.3 Baso # (Auto) 0.0 Abs Immat Gran (auto) 0.08 H Absolute Neuts (auto) 3.0 Absolute Nucleated RBC 0.000 Nucleated RBC % (auto) 0.0 Total Bilirubin < 0.2 Direct Bilirubin < 0.2 AST 35 ALT 83 H Alkaline Phosphatase 115 Ammonia 52 Total Protein 6.9 Albumin 3.9 Valproic Acid 59.7 Medications Medications Current Medications Generic Name Dose Route Start Last Admin [facility] PRN Reason Stop Dose Admin Acetaminophen 650 mg 12/09/20 13:28 Acetaminophen 325 Mg Tablet PO Q6H PRN Headache/Pain Mild Scale (1-3) Al Hydroxide/Mg Hydroxide 30 ml 12/09/20 13:28 Magnesium Hydrox/Alum Hydrox 30 Ml Oral.Susp PO Q6H PRN Heartburn/Nausea Atorvastatin Calcium 10 mg 12/08/20 21:00 12/14/20 20:22 Atorvastatin Calcium 10 Mg Tablet PO 10 mg BEDTIME CORIE Administration Baclofen 10 mg 12/08/20 18:55 12/15/20 15:11 Baclofen 10 Mg Tablet PO 10 mg TID PRN Administration Back Pain Clonidine HCl 0.1 mg 12/08/20 18:55 12/15/20 11:44 Clonidine Hcl 0.1 Mg Tablet PO 0.1 mg TID PRN Administration anxiety Protocol Divalproex Sodium 1,500 mg 12/12/20 21:00 12/14/20 20:23 Divalproex Sodium Er 500 Mg Tab.Er.24h PO 1,500 mg BEDTIME CORIE Administration Fluoxetine HCl 40 mg 12/12/20 09:00 12/15/20 08:33 Fluoxetine Hcl 20 Mg Capsule PO 40 mg DAILY CORIE Administration Gabapentin 400 mg 12/08/20 21:00 12/15/20 15:11 Gabapentin 400 Mg Capsule PO 400 mg TID CORIE Administration Hydroxyzine HCl 50 mg 12/14/20 14:59 12/15/20 11:47 Hydroxyzine Hcl 50 Mg Tablet PO 50 mg QID PRN Administration Anxiety Magnesium Hydroxide 30 ml 12/09/20 13:28 12/13/20 13:33 Milk Of Magnesia 30 Ml Oral.Susp PO 30 ml DAILY PRN Administration Constipation Methadone HCl 140 mg 12/13/20 09:00 12/15/20 08:33 Methadone Hcl 1 Mg/0.1 Ml Oral.Conc PO 140 mg DAILY CORIE Administration Mirtazapine 45 mg 12/14/20 21:00 12/14/20 20:30 Mirtazapine 15 Mg Tablet PO 45 mg BEDTIME CORIE Administration Naloxone HCl 4 mg 12/11/20 08:53 Naloxone Hcl Nasal 4 Mg [place] NOSTRILALT ONCE PRN opioid intoxication Naproxen 500 mg 12/08/20 18:55 12/13/20 17:27 Naproxen 500 Mg Tablet PO 500 mg 0900,2100 PRN Administration Pain Nicotine Polacrilex 4 mg 12/10/20 09:10 12/15/20 15:11 Nicotine Polacrilex 2 Mg Gum BUCCAL 4 mg Q2H PRN Administration Nicotine Cravings Ondansetron HCl 8 mg 12/11/20 16:07 12/11/20 16:46 Ondansetron Odt 8 Mg Tab.Rapdis TRANSLINGU 8 mg Q12H PRN Administration Nausea Prazosin HCl 2 mg 12/08/20 21:00 12/14/20 20:22 Prazosin Hcl 1 Mg Capsule PO 2 mg BEDTIME CORIE Administration Protocol Risperidone 1 mg 12/08/20 21:00 12/14/20 20:23 Risperidone 1 Mg Tablet PO 1 mg BEDTIME CORIE Administration Tamsulosin HCl 0.4 mg 12/09/20 09:00 12/15/20 08:33 Tamsulosin Hcl 0.4 Mg Capsule PO 0.4 mg DAILY CORIE Administration Trazodone HCl 50 mg 12/08/20 18:55 12/11/20 20:30 Trazodone Hcl 50 Mg Tablet PO 50 mg BEDTIME PRN Administration Insomnia Allergies Allergies Allergy/AdvReac Type Severity Reaction Status Date / Time shellfish derived Allergy Severe ANAPHAYLAXI Verified 08/04/20 22:58 [SHELLFISH DERIVED] A Assessment & Plan Assessment & Plan (1) MDD (major depressive disorder), recurrent episode, severe: Qualifiers: Psychotic features: without psychotic features Qualified Code(s): F33.2 - Major depressive disorder, recurrent severe without psychotic features Status: Chronic Code(s): F33.2 - Major depressive disorder, recurrent severe without psychotic features (2) PTSD (post-traumatic stress disorder): Status: Chronic Code(s): F43.10 - Post-traumatic stress disorder, unspecified (3) Opioid use disorder, moderate, in early remission, on maintenance therapy: Status: Inactive Code(s): F11.21 - Opioid dependence, in remission (4) Cocaine use disorder, moderate, dependence: Status: Acute Code(s): F14.20 - Cocaine dependence, uncomplicated (5) Chronic pain: Status: Acute Code(s): G89.29 - Other chronic pain Assessment and Plan: Guillermo is a 35-year-old male with history of depression, PTSD, chronic SI, substance abuse, opiate dependent on methadone. He has multiple inpatient psych admissions for relapse, SI, depression, and mood dysregulation. He has chronic homelessness with minimal family support, financial stress. Hx of non-adherence with follow up outpatient appointments. He is tolerating medications remains depressed but SI resolved. mood improving slowly forthcoming in discussions called and left message for mother (pt gave verbal ADAM consent); mother is now hospitalized for complication with kidney transplant Lab work: Depakote level essentially the same despite increasing by 500 mg ALT mildly elevated; AST, ammonia within normal limits PLAN: Start Wellbutrin XL 150 mg daily Will thus Lower Remeron to 7.5 q.h.s. starting 12/16 since adding Wellbutrin to avoid serotonin syndrome since patient is also on fluoxetine Added hydroxyzine 50 mg for anxiety p.r.n. Methadone increased to 140 mg via substance abuse consult Prozac increased to 40 mg to target depression Depakote also increased to 1500 mg q.h.s. for ongoing depression as therapeutic level within window but low 1. Methadone 140 mg 2. Continue Trazodone 50 mg QHS PRN for insomnia 3. COntinue Gabapentin 400 mg TID for pain, anxiety, mood 7. Continue Risperdal 1 mg QHS for mood regulation 8. COntinue Prazosin 2 mg QHS for hyperarousal, PTSD 9. Continue Clonidine 0.1 mg TID PRN for withdrawal sx Monitor response to medications. Monitor for safety in the milieu. Discharge on stabilization. Greater than 50% of the session was spent on counseling and/or coordination of care Reason for contiued inpatient stay Substantial Risk for: med/psych decompensation
[2020-12-15 19:25] VITALS: BP 105/51; PULSE 61; RESP 16; O2SAT 97
[2020-12-15] MEDS: Divalproex Sodium ER 500 MG TAB.ER.24H 1500 MG PO (19:49)
[2020-12-15] MEDS: Mirtazapine 7.5 MG TABLET PO (19:50)
[2020-12-15] MEDS: Mirtazapine 15 MG TABLET 45 MG PO (19:50)
[2020-12-15] MEDS: Prazosin HCL 1 MG CAPSULE 2 MG PO (19:50)
[2020-12-15] MEDS: Atorvastatin Calcium 10 MG TABLET PO (19:50)
[2020-12-15] MEDS: risperiDONE 0.5 MG TABLET PO (19:54)
[2020-12-16 07:09] VITALS: BP 110/55; PULSE 72; RESP 18; TEMP 36.3; O2SAT 95
[2020-12-16 07:45] VITALS: BP 122/78; PULSE 88
[2020-12-16 07:59] VITALS: BP 122/78; PULSE 88
[2020-12-16] MEDS: Tamsulosin HCL 0.4 MG CAPSULE PO (07:59)
[2020-12-16] MEDS: Gabapentin 400 MG CAPSULE PO ×3 (07:59→20:12)
[2020-12-16] MEDS: cloNIDine HCL 0.1 MG TABLET PO ×2 (07:59→14:24)
[2020-12-16] MEDS: buPROPion HCl XL 150 MG TAB.ER.24H PO (07:59)
[2020-12-16] MEDS: Nicotine Polacrilex 2 MG GUM 4 MG BUCCAL ×6 (08:00→22:58)
[2020-12-16] MEDS: FLUoxetine HCl 20 MG CAPSULE 40 MG PO (08:00)
[2020-12-16] MEDS: Baclofen 10 MG TABLET PO ×3 (08:00→20:20)
[2020-12-16] MEDS: Milk of Magnesia 30 ML ORAL.SUSP PO (09:47)
[2020-12-16 14:24] VITALS: BP 132/73; PULSE 92
[2020-12-16] MEDS: hydrOXYzine HCL 50 MG TABLET PO ×2 (14:24→20:10)
--- NOTE | 2020-12-16 17:30 | P.PNPSI_ITS ---
Subjective Subjective Date of Service: 12/16/20 Reason For Visit: PTSD,recurrent severe major depression,opiate,coca Interim History: pt seen on 12/16 pt reports mood is still depressed but he does feel better since starting Wellbutrin. He notices that today, while he normally mostly stays in bed, dragging himself to groups, he's been up and in milue since breakfast, not feeling tired. Pt is concerned about his mother; he talks openly about struggles with addiction, how he hates it's control over him and realizing more and more that he needs day to day help in form of AA/NA, something consistent beyond just a few week Program. Pt would like to keep current regimen. He says he thinks he's on Risperdal at bedtime due to parasomnia; he is fine with getting ride of Remeron (publications writer said will leave as prn for now). Pt planning to dc on Saturday. Still w/ passive SI but says this is chronic and he has no plans or intent of self harm. Mental Status Exam Mental Status Exam Narrative: Pt is alert and oriented; behavior is cooperative and calm; patient is not in distress; dressed in hospital cloths with adequate hygiene; mood is described as depressed but better and affect congruent; eye contact appropriate; Speech is normal rate, rhythm and prosody. No psychomotor retardation present; thought process is organized and goal directed. Thought content is on treatment and relevant to pertinent topics and without any delusional content, paranoid ideations or grandiosity; denies any active SI though with chronic, ihntermittent passive SI; no HI. There is no evidence of perceptual disturbance. ?Patients insight and judgment appear intact. Diagnostics Vital Signs (24Hr): Vital Signs - 24 hr 12/15/20 19:25 12/16/20 07:09 12/16/20 07:45 Temperature 97.4 F Pulse Rate 61 72 88 Respiratory Rate 16 18 Blood Pressure 105/51 L 110/55 L 122/78 Pulse Oximetry 97 95 12/16/20 07:59 12/16/20 14:24 Temperature Pulse Rate 88 92 Respiratory Rate Blood Pressure 122/78 132/73 Pulse Oximetry Body Mass Index 35.9 Labs Results: 12/15/20 08:04 12/08/20 14:31 Labs: Laboratory Results - last 48 hr 12/15/20 12/15/20 12/15/20 08:04 08:04 08:04 WBC 6.6 RBC 4.82 Hgb 13.1 L Hct 40.0 L MCV 83.0 MCH 27.2 MCHC 32.8 RDW 13.9 Plt Count 184 D MPV 10.0 Immature Gran % (Auto) 1.2 H Neut % (Auto) 44.8 L Lymph % (Auto) 35.5 [place] % (Auto) 14.0 H Eos % (Auto) 4.3 H Baso % (Auto) 0.2 Lymph # (Auto) 2.3 [place] # (Auto) 0.9 Eos # (Auto) 0.3 Baso # (Auto) 0.0 Abs Immat Gran (auto) 0.08 H Absolute Neuts (auto) 3.0 Absolute Nucleated RBC 0.000 Nucleated RBC % (auto) 0.0 Total Bilirubin < 0.2 Direct Bilirubin < 0.2 AST 35 ALT 83 H Alkaline Phosphatase 115 Ammonia 52 Total Protein 6.9 Albumin 3.9 Valproic Acid 59.7 Medications Medications Current Medications Generic Name Dose Route Start Last Admin Trade Name Freq PRN Reason Stop Dose Admin Acetaminophen 650 mg 12/09/20 13:28 Acetaminophen 325 Mg Tablet PO Q6H PRN Headache/Pain Mild Scale (1-3) Al Hydroxide/Mg Hydroxide 30 ml 12/09/20 13:28 Magnesium Hydrox/Alum Hydrox 30 Ml Oral.Susp PO Q6H PRN Heartburn/Nausea Atorvastatin Calcium 10 mg 12/08/20 21:00 12/15/20 19:50 Atorvastatin Calcium 10 Mg Tablet PO 10 mg BEDTIME CORIE Administration Baclofen 10 mg 12/08/20 18:55 12/16/20 14:19 Baclofen 10 Mg Tablet PO 10 mg TID PRN Administration Back Pain Bupropion HCl 150 mg 12/16/20 09:00 12/16/20 07:59 Bupropion Hcl Xl 150 Mg Tab.Er.24h PO 150 mg DAILY CORIE Administration Clonidine HCl 0.1 mg 12/08/20 18:55 12/16/20 14:24 Clonidine Hcl 0.1 Mg Tablet PO 0.1 mg TID PRN Administration anxiety Protocol Divalproex Sodium 1,500 mg 12/12/20 21:00 12/15/20 19:49 Divalproex Sodium Er 500 Mg Tab.Er.24h PO 1,500 mg BEDTIME CORIE Administration Fluoxetine HCl 40 mg 12/12/20 09:00 12/16/20 08:00 Fluoxetine Hcl 20 Mg Capsule PO 40 mg DAILY CORIE Administration Gabapentin 400 mg 12/08/20 21:00 12/16/20 14:14 Gabapentin 400 Mg Capsule PO 400 mg TID CORIE Administration Hydroxyzine HCl 50 mg 12/14/20 14:59 12/16/20 14:24 Hydroxyzine Hcl 50 Mg Tablet PO 50 mg QID PRN Administration Anxiety Magnesium Hydroxide 30 ml 12/09/20 13:28 12/16/20 09:47 Milk Of Magnesia 30 Ml Oral.Susp PO 30 ml DAILY PRN Administration Constipation Methadone HCl 140 mg 12/13/20 09:00 12/16/20 07:59 Methadone Hcl 1 Mg/0.1 Ml Oral.Conc PO 140 mg DAILY CORIE Administration Mirtazapine 7.5 mg 12/15/20 21:00 12/15/20 19:50 Mirtazapine 7.5 Mg Tablet PO 7.5 mg BEDTIME CORIE Administration Naloxone HCl 4 mg 12/11/20 08:53 Naloxone Hcl Nasal 4 Mg [place] NOSTRILALT ONCE PRN opioid intoxication Naproxen 500 mg 12/08/20 18:55 12/13/20 17:27 Naproxen 500 Mg Tablet PO 500 mg 0900,2100 PRN Administration Pain Nicotine Polacrilex 4 mg 12/10/20 09:10 12/16/20 17:29 Nicotine Polacrilex 2 Mg Gum BUCCAL 4 mg Q2H PRN Administration Nicotine Cravings Ondansetron HCl 8 mg 12/11/20 16:07 12/11/20 16:46 Ondansetron Odt 8 Mg Tab.Rapdis TRANSLINGU 8 mg Q12H PRN Administration Nausea Prazosin HCl 2 mg 12/08/20 21:00 12/15/20 19:50 Prazosin Hcl 1 Mg Capsule PO 2 mg BEDTIME CORIE Administration Protocol Risperidone 0.5 mg 12/15/20 21:00 12/15/20 19:54 Risperidone 0.5 Mg Tablet PO 0.5 mg BEDTIME CORIE Administration Senna/Docusate Sodium 1 tab 12/17/20 09:00 Sennosides/Docusate Sodium Tablet PO DAILY CORIE Tamsulosin HCl 0.4 mg 12/09/20 09:00 12/16/20 07:59 Tamsulosin Hcl 0.4 Mg Capsule PO 0.4 mg DAILY CORIE Administration Trazodone HCl 50 mg 12/08/20 18:55 12/11/20 20:30 Trazodone Hcl 50 Mg Tablet PO 50 mg BEDTIME PRN Administration Insomnia Allergies Allergies Allergy/AdvReac Type Severity Reaction Status Date / Time shellfish derived Allergy Severe ANAPHAYLAXI Verified 08/04/20 22:58 [SHELLFISH DERIVED] A Assessment & Plan Assessment & Plan (1) MDD (major depressive disorder), recurrent episode, severe: Qualifiers: Psychotic features: without psychotic features Qualified Code(s): F33.2 - Major depressive disorder, recurrent severe without psychotic features Status: Chronic Code(s): F33.2 - Major depressive disorder, recurrent severe without psychotic features (2) PTSD (post-traumatic stress disorder): Status: Chronic Code(s): F43.10 - Post-traumatic stress disorder, unspecified (3) Opioid use disorder, moderate, in early remission, on maintenance therapy: Status: Inactive Code(s): F11.21 - Opioid dependence, in remission (4) Cocaine use disorder, moderate, dependence: Status: Acute Code(s): F14.20 - Cocaine dependence, uncomplicated (5) Chronic pain: Status: Acute Code(s): G89.29 - Other chronic pain Assessment and Plan: Guillermo is a 35-year-old male with history of depression, PTSD, chronic SI, subst ance abuse, opiate dependent on methadone. He has multiple inpatient psych admissions for relapse, SI, depression, and mood dysregulation. He has chronic homelessness with minimal family support, financial stress. Hx of non-adherence with follow up outpatient appointments. He is tolerating medications remains depressed but better; passive, chronic intermittent SI. forthcoming in discussions called and left message for mother (pt gave verbal ADAM consent); mother is now hospitalized for complication with kidney transplant Lab work: Depakote level essentially the same despite increasing by 500 mg ALT mildly elevated; AST, ammonia within normal limits PLAN: Start Wellbutrin XL 150 mg daily Will thus Lower Remeron to 7.5 q.h.s (and make a prn for now). starting 12/16 since adding Wellbutrin to avoid serotonin syndrome since patient is also on fluoxetine Added hydroxyzine 50 mg for anxiety p.r.n. Methadone increased to 140 mg via substance abuse consult Prozac increased to 40 mg to target depression Depakote also increased to 1500 mg q.h.s. for ongoing depression as therapeutic level within window but low lowered risperdal to 0.5mg qhs since pt reports parasomnia 1. Methadone 140 mg 2. Continue Trazodone 50 mg QHS PRN for insomnia 3. COntinue Gabapentin 400 mg TID for pain, anxiety, mood 8. COntinue Prazosin 2 mg QHS for hyperarousal, PTSD Monitor response to medications. Monitor for safety in the milieu. Discharge on stabilization. Greater than 50% of the session was spent on counseling and/or coordination of care Reason for contiued inpatient stay Substantial Risk for: other
[2020-12-16 18:00] VITALS: BP 114/62; PULSE 87; RESP 16; TEMP 36.4; O2SAT 98
[2020-12-16] MEDS: risperiDONE 0.5 MG TABLET PO (20:10)
[2020-12-16] MEDS: Atorvastatin Calcium 10 MG TABLET PO (20:10)
[2020-12-16 20:12] VITALS: BP 114/62; PULSE 87
[2020-12-16] MEDS: Prazosin HCL 1 MG CAPSULE 2 MG PO (20:12)
[2020-12-16] MEDS: Divalproex Sodium ER 500 MG TAB.ER.24H 1500 MG PO (20:12)
[2020-12-16] MEDS: Docusate Sodium 100 MG CAPSULE PO (21:36)
[2020-12-16] MEDS: Mirtazapine 7.5 MG TABLET PO (22:58)
[2020-12-17 06:00] VITALS: BP 106/52; PULSE 68; RESP 16; TEMP 35.9; O2SAT 97
[2020-12-17] MEDS: FLUoxetine HCl 20 MG CAPSULE 40 MG PO (08:40)
[2020-12-17] MEDS: Nicotine Polacrilex 2 MG GUM 4 MG BUCCAL ×5 (08:40→22:49)
[2020-12-17] MEDS: buPROPion HCl XL 150 MG TAB.ER.24H PO ×2 (08:40→20:43)
[2020-12-17] MEDS: Gabapentin 400 MG CAPSULE PO ×3 (08:40→20:45)
[2020-12-17] MEDS: Tamsulosin HCL 0.4 MG CAPSULE PO (08:40)
[2020-12-17] MEDS: Baclofen 10 MG TABLET PO (08:40)
[2020-12-17] MEDS: Milk of Magnesia 30 ML ORAL.SUSP PO (09:27)
--- NOTE | 2020-12-17 10:52 | P.PNPSI_ITS ---
Subjective Subjective Date of Service: 12/17/20 Reason For Visit: PTSD,recurrent severe major depression,opiate,coca Interim History: Patient was seen in rounds today. He continues to feel depressed and anxious about his future predicament. He also has anxiety. He complains of constipation. He took milk of Mag yesterday and today with no benefits. I increased his Colace 200 mg b.i.d. and also increased his baclofen to 15 mg t.i.d.. Eating and sleeping adequately. No other complaints or changes today. Review of Systems Review of Systems Ten point review of system is positive for back pain, constipation. Otherwise negative Constitutional: Denies as per HPI Mental Status Exam Mental Status Exam Narrative: In today's visit he is alert, oriented and pleasant. Normal speech. Good eye contact. Affect is appropriate and contained. No signs of psychosis. Cognitively intact. No SI/HI. Judgment is intact Diagnostics Vital Signs (24Hr): Vital Signs - 24 hr 12/16/20 14:24 12/16/20 18:00 12/16/20 20:12 Temperature 97.5 F Pulse Rate 92 87 87 Respiratory Rate 16 Blood Pressure 132/73 114/62 114/62 Pulse Oximetry 98 12/17/20 06:00 Temperature 96.7 F L Pulse Rate 68 Respiratory Rate 16 Blood Pressure 106/52 L Pulse Oximetry 97 Body Mass Index 35.9 Labs Results: 12/15/20 08:04 12/08/20 14:31 Labs: Laboratory Results - last 48 hr 12/15/20 08:04 Valproic Acid 59.7 Medications Medications Current Medications Generic Name Dose Route Start Last Admin Trade Name [facility] PRN Reason Stop Dose Admin Acetaminophen 650 mg 12/09/20 13:28 Acetaminophen 325 Mg Tablet PO Q6H PRN Headache/Pain Mild Scale (1-3) Al Hydroxide/Mg Hydroxide 30 ml 12/09/20 13:28 Magnesium Hydrox/Alum Hydrox 30 Ml Oral.Susp PO Q6H PRN Heartburn/Nausea Atorvastatin Calcium 10 mg 12/08/20 21:00 12/16/20 20:10 Atorvastatin Calcium 10 Mg Tablet PO 10 mg BEDTIME CORIE Administration Baclofen 15 mg 12/17/20 15:00 Baclofen 10 Mg Tablet PO TID CORIE Bupropion HCl 150 mg 12/17/20 21:00 Bupropion Hcl Xl 150 Mg Tab.Er.24h PO BID CORIE Clonidine HCl 0.1 mg 12/08/20 18:55 12/16/20 14:24 Clonidine Hcl 0.1 Mg Tablet PO 0.1 mg TID PRN Administration anxiety Protocol Divalproex Sodium 1,500 mg 12/12/20 21:00 12/16/20 20:12 Divalproex Sodium Er 500 Mg Tab.Er.24h PO 1,500 mg BEDTIME CORIE Administration Docusate Sodium 100 mg 12/17/20 21:00 12/16/20 21:36 Docusate Sodium 100 Mg Capsule PO 100 mg BID CORIE Administration Fluoxetine HCl 40 mg 12/12/20 09:00 12/17/20 08:40 Fluoxetine Hcl 20 Mg Capsule PO 40 mg DAILY CORIE Administration Gabapentin 400 mg 12/08/20 21:00 12/17/20 08:40 Gabapentin 400 Mg Capsule PO 400 mg TID CORIE Administration Hydroxyzine HCl 50 mg 12/14/20 14:59 12/16/20 20:10 Hydroxyzine Hcl 50 Mg Tablet PO 50 mg QID PRN Administration Anxiety Magnesium Hydroxide 30 ml 12/17/20 10:22 Milk Of Magnesia 30 Ml Oral.Susp PO BID PRN Constipation Methadone HCl 140 mg 12/13/20 09:00 12/17/20 08:39 Methadone Hcl 1 Mg/0.1 Ml Oral.Conc PO 140 mg DAILY CORIE Administration Mirtazapine 7.5 mg 12/16/20 17:31 12/16/20 22:58 Mirtazapine 7.5 Mg Tablet PO 7.5 mg BEDTIME PRN Administration insomnia Naloxone HCl 4 mg 12/11/20 08:53 Naloxone Hcl Nasal 4 Mg [place] NOSTRILALT ONCE PRN opioid intoxication Naproxen 500 mg 12/08/20 18:55 12/13/20 17:27 Naproxen 500 Mg Tablet PO 500 mg 0900,2100 PRN Administration Pain Nicotine Polacrilex 4 mg 12/10/20 09:10 12/17/20 08:40 Nicotine Polacrilex 2 Mg Gum BUCCAL 4 mg Q2H PRN Administration Nicotine Cravings Prazosin HCl 2 mg 12/08/20 21:00 12/16/20 20:12 Prazosin Hcl 1 Mg Capsule PO 2 mg BEDTIME CORIE Administration Protocol Risperidone 0.5 mg 12/15/20 21:00 12/16/20 20:10 Risperidone 0.5 Mg Tablet PO 0.5 mg BEDTIME CORIE Administration Senna/Docusate Sodium 1 tab 12/17/20 09:00 Sennosides/Docusate Sodium Tablet PO DAILY CORIE Tamsulosin HCl 0.4 mg 12/09/20 09:00 12/17/20 08:40 Tamsulosin Hcl 0.4 Mg Capsule PO 0.4 mg DAILY CORIE Administration Trazodone HCl 50 mg 12/08/20 18:55 12/11/20 20:30 Trazodone Hcl 50 Mg Tablet PO 50 mg BEDTIME PRN Administration Insomnia Allergies Allergies Allergy/AdvReac Type Severity Reaction Status Date / Time shellfish derived Allergy Severe ANAPHAYLAXI Verified 08/04/20 22:58 [SHELLFISH DERIVED] A Assessment & Plan Assessment & Plan (1) MDD (major depressive disorder), recurrent episode, severe: Qualifiers: Psychotic features: without psychotic features Qualified Code(s): F33.2 - Major depressive disorder, recurrent severe without psychotic features Status: Chronic Code(s): F33.2 - Major depressive disorder, recurrent severe without psychotic features (2) PTSD (post-traumatic stress disorder): Status: Chronic Code(s): F43.10 - Post-traumatic stress disorder, unspecified (3) Opioid use disorder, moderate, in early remission, on maintenance therapy: Status: Inactive Code(s): F11.21 - Opioid dependence, in remission (4) Cocaine use disorder, moderate, dependence: Status: Acute Code(s): F14.20 - Cocaine dependence, uncomplicated (5) Chronic pain: Status: Acute Code(s): G89.29 - Other chronic pain Assessment and Plan: Guillermo is a 35-year-old male with history of depression, PTSD, chronic SI, substance abuse, opiate dependent on methadone. He has multiple inpatient psych admissions for relapse, SI, depression, and mood dysregulation. He has chronic homelessness with minimal family support, financial stress. Hx of non-adherence with follow up outpatient appointments. He is tolerating medications remains depressed but better; passive, chronic intermittent SI. forthcoming in discussions called and left message for mother (pt gave verbal ADAM consent); mother is now hospitalized for complication with kidney transplant Lab work: Depakote level essentially the same despite increasing by 500 mg ALT mildly elevated; AST, ammonia within normal limits PLAN: Start Wellbutrin XL 150 mg daily Will thus Lower Remeron to 7.5 q.h.s (and make a prn for now). starting 12/16 since adding Wellbutrin to avoid serotonin syndrome since patient is also on fluoxetine Added hydroxyzine 50 mg for anxiety p.r.n. Methadone increased to 140 mg via substance abuse consult Prozac increased to 40 mg to target depression Depakote also increased to 1500 mg q.h.s. for ongoing depression as therapeutic level within window but low lowered risperdal to 0.5mg qhs since pt reports parasomnia 1. Methadone 140 mg 2. Continue Trazodone 50 mg QHS PRN for insomnia 3. COntinue Gabapentin 400 mg TID for pain, anxiety, mood 8. COntinue Prazosin 2 mg QHS for hyperarousal, PTSD Continue current regimen with increase of Wellbutrin to 150 mg b.i.d., baclofen to 15 mg t.i.d. and Colace to 100 mg b.i.d. Greater than 50% of the session was spent on counseling and/or coordination of care Reason for contiued inpatient stay Substantial Risk for: other
[2020-12-17] MEDS: Sennosides/Docusate Sodium TABLET 1 TAB PO (11:12)
[2020-12-17 11:31] VITALS: BP 133/70; PULSE 80
[2020-12-17] MEDS: NaPROXEN 500 MG TABLET PO (11:31)
[2020-12-17] MEDS: hydrOXYzine HCL 50 MG TABLET PO ×2 (11:31→20:44)
[2020-12-17] MEDS: cloNIDine HCL 0.1 MG TABLET PO ×2 (11:31→20:45)
[2020-12-17] MEDS: Baclofen 10 MG TABLET 15 MG PO ×2 (14:31→20:43)
[2020-12-17 18:00] VITALS: BP 113/63; PULSE 101; RESP 18; TEMP 36.2; O2SAT 97
[2020-12-17 20:44] VITALS: BP 113/63; PULSE 101
[2020-12-17] MEDS: risperiDONE 0.5 MG TABLET PO (20:44)
[2020-12-17] MEDS: Prazosin HCL 1 MG CAPSULE 2 MG PO (20:44)
[2020-12-17 20:45] VITALS: BP 113/63; PULSE 101
[2020-12-17] MEDS: Docusate Sodium 100 MG CAPSULE PO (20:45)
[2020-12-17] MEDS: Atorvastatin Calcium 10 MG TABLET PO (20:45)
[2020-12-17] MEDS: Mirtazapine 7.5 MG TABLET PO (22:29)
[2020-12-17] MEDS: Divalproex Sodium ER 500 MG TAB.ER.24H 1500 MG PO (22:30)
[2020-12-18 06:00] VITALS: BP 124/58; PULSE 77; RESP 16; TEMP 36.4; O2SAT 97
[2020-12-18] MEDS: buPROPion HCl XL 150 MG TAB.ER.24H PO ×2 (08:34→14:12)
[2020-12-18] MEDS: FLUoxetine HCl 20 MG CAPSULE 40 MG PO (08:34)
[2020-12-18] MEDS: Gabapentin 400 MG CAPSULE PO ×3 (08:34→20:27)
[2020-12-18] MEDS: Docusate Sodium 100 MG CAPSULE PO ×2 (08:34→20:28)
[2020-12-18] MEDS: Sennosides/Docusate Sodium TABLET 1 TAB PO (08:34)
[2020-12-18] MEDS: Baclofen 10 MG TABLET 15 MG PO ×3 (08:35→20:26)
[2020-12-18] MEDS: Tamsulosin HCL 0.4 MG CAPSULE PO (08:35)
[2020-12-18] MEDS: Nicotine Polacrilex 2 MG GUM 4 MG BUCCAL ×4 (09:22→21:37)
--- NOTE | 2020-12-18 09:48 | P.PNPSI_ITS ---
Subjective Subjective Date of Service: 12/18/20 Reason For Visit: PTSD,recurrent severe major depression,opiate,coca Subjective Notes: Conditional Voluntary Interim History: patient was seen in rounds today. He has been doing better and has been stable though the Wellbutrin has been a little over stimulating with regards to sleep so I will change the 2nd dose to unknown use. He has been brighter. He has been anxious about his mother who was in the hospital in [place] but managed to talk to her yesterday and is feeling better. He has no cravings. He also states that the increase of baclofen has been helpful and wanted to go up further which I held off for today Medication Compliance: Yes Side effects from medications: No Mental Status Exam Mental Status Exam Narrative: in today's visit he is alert, oriented and pleasant. Normal speech. Good eye contact. Affect is appropriate and brighter. No SI. No signs of psychosis. No cognitive deficits. Diagnostics Vital Signs (24Hr): Vital Signs - 24 hr 12/17/20 11:31 12/17/20 18:00 12/17/20 20:44 Temperature 97.2 F Pulse Rate 80 101 H 101 H Respiratory Rate 18 Blood Pressure 133/70 113/63 113/63 Pulse Oximetry 97 12/17/20 20:45 12/18/20 06:00 Temperature 97.5 F Pulse Rate 101 H 77 Respiratory Rate 16 Blood Pressure 113/63 124/58 L Pulse Oximetry 97 Body Mass Index 35.9 Labs Results: 12/15/20 08:04 12/08/20 14:31 Medications Medications Current Medications Generic Name Dose Route Start Last Admin Trade Name Freq PRN Reason Stop Dose Admin Acetaminophen 650 mg 12/09/20 13:28 Acetaminophen 325 Mg Tablet PO Q6H PRN Headache/Pain Mild Scale (1-3) Al Hydroxide/Mg Hydroxide 30 ml 12/09/20 13:28 Magnesium Hydrox/Alum Hydrox 30 Ml Oral.Susp PO Q6H PRN Heartburn/Nausea Atorvastatin Calcium 10 mg 12/08/20 21:00 12/17/20 20:45 Atorvastatin Calcium 10 Mg Tablet PO 10 mg BEDTIME CORIE Administration Baclofen 15 mg 12/17/20 15:00 12/18/20 08:35 Baclofen 10 Mg Tablet PO 15 mg TID CORIE Administration Bupropion HCl 150 mg 12/18/20 13:30 Bupropion Hcl Xl 150 Mg Tab.Er.24h PO BID@0830,1330 CORIE Clonidine HCl 0.1 mg 12/08/20 18:55 12/17/20 20:45 Clonidine Hcl 0.1 Mg Tablet PO 0.1 mg TID PRN Administration anxiety Protocol Divalproex Sodium 1,500 mg 12/12/20 21:00 12/17/20 22:30 Divalproex Sodium Er 500 Mg Tab.Er.24h PO 1,500 mg BEDTIME CORIE Administration Docusate Sodium 100 mg 12/17/20 21:00 12/18/20 08:34 Docusate Sodium 100 Mg Capsule PO 100 mg BID CORIE Administration Fluoxetine HCl 40 mg 12/12/20 09:00 12/18/20 08:34 Fluoxetine Hcl 20 Mg Capsule PO 40 mg DAILY CORIE Administration Gabapentin 400 mg 12/08/20 21:00 12/18/20 08:34 Gabapentin 400 Mg Capsule PO 400 mg TID CORIE Administration Hydroxyzine HCl 50 mg 12/14/20 14:59 12/17/20 20:44 Hydroxyzine Hcl 50 Mg Tablet PO 50 mg QID PRN Administration Anxiety Magnesium Hydroxide 30 ml 12/17/20 10:22 Milk Of Magnesia 30 Ml Oral.Susp PO BID PRN Constipation Methadone HCl 140 mg 12/13/20 09:00 12/18/20 08:34 Methadone Hcl 1 Mg/0.1 Ml Oral.Conc PO 140 mg DAILY CORIE Administration Mirtazapine 7.5 mg 12/16/20 17:31 12/17/20 22:29 Mirtazapine 7.5 Mg Tablet PO 7.5 mg BEDTIME PRN Administration insomnia Naloxone HCl 4 mg 12/11/20 08:53 Naloxone Hcl Nasal 4 Mg [place] NOSTRILALT ONCE PRN opioid intoxication Naproxen 500 mg 12/08/20 18:55 12/17/20 11:31 Naproxen 500 Mg Tablet PO 500 mg 0900,2100 PRN Administration Pain Nicotine Polacrilex 4 mg 12/10/20 09:10 12/18/20 09:22 Nicotine Polacrilex 2 Mg Gum BUCCAL 4 mg Q2H PRN Administration Nicotine Cravings Prazosin HCl 2 mg 12/08/20 21:00 12/17/20 20:44 Prazosin Hcl 1 Mg Capsule PO 2 mg BEDTIME CORIE Administration Protocol Risperidone 0.5 mg 12/15/20 21:00 12/17/20 20:44 Risperidone 0.5 Mg Tablet PO 0.5 mg BEDTIME CORIE Administration Senna/Docusate Sodium 1 tab 12/17/20 09:00 12/18/20 08:34 Sennosides/Docusate Sodium Tablet PO 1 tab DAILY CORIE Administration Tamsulosin HCl 0.4 mg 12/09/20 09:00 12/18/20 08:35 Tamsulosin Hcl 0.4 Mg Capsule PO 0.4 mg DAILY CORIE Administration Trazodone HCl 50 mg 12/08/20 18:55 12/11/20 20:30 Trazodone Hcl 50 Mg Tablet PO 50 mg BEDTIME PRN Administration Insomnia Allergies Allergies Allergy/AdvReac Type Severity Reaction Status Date / Time shellfish derived Allergy Severe ANAPHAYLAXI Verified 08/04/20 22:58 [SHELLFISH DERIVED] A Assessment & Plan Assessment & Plan (1) MDD (major depressive disorder), recurrent episode, severe: Qualifiers: Psychotic features: without psychotic features Qualified Code(s): F33.2 - Major depressive disorder, recurrent severe without psychotic features Status: Chronic Code(s): F33.2 - Major depressive disorder, recurrent severe without psychotic features (2) PTSD (post-traumatic stress disorder): Status: Chronic Code(s): F43.10 - Post-traumatic stress disorder, unspecified (3) Opioid use disorder, moderate, in early remission, on maintenance therapy: Status: Inactive Code(s): F11.21 - Opioid dependence, in remission (4) Cocaine use disorder, moderate, dependence: Status: Acute Code(s): F14.20 - Cocaine dependence, uncomplicated (5) Chronic pain: Status: Acute Code(s): G89.29 - Other chronic pain Assessment and Plan: Guillermo is a 35-year-old male with history of depression, PTSD, chronic SI, substance abuse, opiate dependent on methadone. He has multiple inpatient psych admissions for relapse, SI, depression, and mood dysregulation. He has chronic homelessness with minimal family support, financial stress. Hx of non-adherence with follow up outpatient appointments. He is tolerating medications remains depressed but better; passive, chronic intermittent SI. forthcoming in discussions called and left message for mother (pt gave verbal ADAM consent); mother is now hospitalized for complication with kidney transplant Lab work: Depakote level essentially the same despite increasing by 500 mg ALT mildly elevated; AST, ammonia within normal limits PLAN: Start Wellbutrin XL 150 mg daily Will thus Lower Remeron to 7.5 q.h.s (and make a prn for now). starting 12/16 since adding Wellbutrin to avoid serotonin syndrome since patient is also on fluoxetine Added hydroxyzine 50 mg for anxiety p.r.n. Methadone increased to 140 mg via substance abuse consult Prozac increased to 40 mg to target depression Depakote also increased to 1500 mg q.h.s. for ongoing depression as therapeutic level within window but low lowered risperdal to 0.5mg qhs since pt reports parasomnia 1. Methadone 140 mg 2. Continue Trazodone 50 mg QHS PRN for insomnia 3. COntinue Gabapentin 400 mg TID for pain, anxiety, mood 8. COntinue Prazosin 2 mg QHS for hyperarousal, PTSD Continue current regimen with increase of Wellbutrin to 150 mg b.i.d., baclofen to 15 mg t.i.d. and Colace to 100 mg b.i.d. Greater than 50% of the session was spent on counseling and/or coordination of care Reason for contiued inpatient stay Substantial Risk for: other
[2020-12-18 14:11] VITALS: BP 133/77; PULSE 80
[2020-12-18] MEDS: cloNIDine HCL 0.1 MG TABLET PO (14:11)
[2020-12-18] MEDS: hydrOXYzine HCL 50 MG TABLET PO (14:12)
[2020-12-18 18:00] VITALS: BP 112/61; PULSE 67; RESP 16; TEMP 36.4; O2SAT 96
[2020-12-18 20:27] VITALS: BP 112/61; PULSE 67
[2020-12-18] MEDS: Divalproex Sodium ER 500 MG TAB.ER.24H 1500 MG PO (20:27)
[2020-12-18] MEDS: Atorvastatin Calcium 10 MG TABLET PO (20:27)
[2020-12-18] MEDS: Prazosin HCL 1 MG CAPSULE 2 MG PO (20:27)
[2020-12-18] MEDS: risperiDONE 0.5 MG TABLET PO (20:28)
[2020-12-19] MEDS: Nicotine Polacrilex 2 MG GUM 4 MG BUCCAL ×3 (05:59→11:56)
[2020-12-19 06:00] VITALS: BP 106/55; PULSE 63; RESP 16; TEMP 36.1; O2SAT 97
[2020-12-19] MEDS: FLUoxetine HCl 20 MG CAPSULE 40 MG PO (08:24)
[2020-12-19] MEDS: buPROPion HCl XL 150 MG TAB.ER.24H PO ×2 (08:24→13:52)
[2020-12-19] MEDS: Sennosides/Docusate Sodium TABLET 1 TAB PO (08:24)
[2020-12-19] MEDS: Docusate Sodium 100 MG CAPSULE PO (08:24)
[2020-12-19] MEDS: Baclofen 10 MG TABLET 15 MG PO ×2 (08:24→13:52)
[2020-12-19] MEDS: Tamsulosin HCL 0.4 MG CAPSULE PO (08:24)
[2020-12-19] MEDS: Gabapentin 400 MG CAPSULE PO ×2 (08:25→13:52)
[2020-12-19 11:56] VITALS: BP 118/61; PULSE 85
[2020-12-19] MEDS: cloNIDine HCL 0.1 MG TABLET PO (11:56)
[2020-12-19] MEDS: hydrOXYzine HCL 50 MG TABLET PO (11:56)
[2020-12-19] MEDS: Naloxone HCl Nasal TAKE HOME 4 MG SPRAY NOSTRILALT (13:59)
--- NOTE | 2020-12-19 14:04 | PM.PSYDC ---
DS: Providers Provider Date of Service: 12/19/20 Date of admission: 12/09/20 13:27 Date of discharge: 12/19/20 Primary care physician: Unknown Physician Attending physician on admission: Hakeem Roland Consults: 12/10/20 17:43 Addiction Medicine Routine Consulting Provider: Astrid Avila Reason for consultation: asking to increase methadone Attending physician on discharge: Hakeem Roland DS: Diagnosis Discharge Diagnosis (1) MDD (major depressive disorder), recurrent episode, severe: Status: Chronic (2) PTSD (post-traumatic stress disorder): Status: Chronic (3) Opioid use disorder, moderate, in early remission, on maintenance therapy: Status: Chronic (4) Cocaine use disorder, moderate, dependence: Status: Chronic (5) Chronic pain: Status: Acute DS: Medications Discharge Medications Home Medications: Home Medications Medication Instructions Recorded Confirmed naproxen 500 mg tablet 500 mg PO 0900,2100 PRN 12/08/20 12/08/20 Previous Rx's Medication Instructions Recorded atorvastatin 10 mg tablet 10 mg PO BEDTIME 30 Days #30 tab 12/19/20 baclofen 10 mg tablet 10 mg PO TID PRN 30 Days #60 tab 12/19/20 bupropion HCl 150 mg 24 hr tablet, 150 mg PO DAILY 30 Days #30 tab 12/19/20 extended release clonidine HCl 0.1 mg tablet 0.1 mg PO BID PRN 30 Days #60 tab 12/19/20 divalproex 500 mg tablet,extended 1,500 mg PO BEDTIME 30 Days #90 tab 12/19/20 release 24 hr fluoxetine 20 mg capsule 40 mg PO DAILY 30 Days #60 cap 12/19/20 gabapentin 400 mg capsule 400 mg PO TID 14 Days #42 cap 12/19/20 hydroxyzine HCl 50 mg tablet 50 mg PO BID PRN 30 Days #60 tab 12/19/20 methadone 10 mg/mL oral 140 mg PO DAILY #0 ml 12/19/20 concentrate (Methadose) naloxone 4 mg/actuation nasal 4 mg INTRANASAL (ALT) ONCE PRN 1 12/19/20 spray (Narcan) Days #2 ea nicotine (polacrilex) 4 mg gum 1 mg PO Q2H PRN 30 Days #100 ea 12/19/20 prazosin 2 mg capsule 2 mg PO BEDTIME 30 Days #30 cap 12/19/20 risperidone 0.5 mg tablet 0.5 mg PO BEDTIME 30 Days #30 tab 12/19/20 sennosides 8.6 mg-docusate sodium 1 tab PO DAILY 30 Days #30 tab 12/19/20 50 mg tablet (Senna Plus) tamsulosin 0.4 mg capsule 0.4 mg PO DAILY 30 Days #30 cap 12/19/20 trazodone 50 mg tablet 50 mg PO BEDTIME PRN 30 Days #30 12/19/20 tab Mental Status Exam Mental Status Exam Narrative: Pt is alert and oriented; behavior is cooperative and calm; patient is not in distress; dressed in hospital cloths with adequate hygiene; mood is described as anxious and affect congruent; eye contact appropriate; Speech is normal rate, rhythm and prosody. No psychomotor retardation present; thought process is organized and goal directed. Thought content is on treatment and relevant to pertinent topics and without any delusional content, paranoid ideations or grandiosity; denies any active SI though with chronic, intermittent passive SI; no HI. There is no evidence of perceptual disturbance. ?Patients insight and judgment appear intact. Data Data Completed and Pending Completed studies during hospitalization [Text1]: 12/15/20 12/15/20 12/15/20 08:04 08:04 08:04 WBC 6.6 RBC 4.82 Hgb 13.1 L Hct 40.0 L MCV 83.0 MCH 27.2 MCHC 32.8 RDW 13.9 Plt Count 184 D MPV 10.0 Immature Gran % (Auto) 1.2 H Neut % (Auto) 44.8 L Lymph % (Auto) 35.5 [place] % (Auto) 14.0 H Eos % (Auto) 4.3 H Baso % (Auto) 0.2 Lymph # (Auto) 2.3 [place] # (Auto) 0.9 Eos # (Auto) 0.3 Baso # (Auto) 0.0 Abs Immat Gran (auto) 0.08 H Absolute Neuts (auto) 3.0 Absolute Nucleated RBC 0.000 Nucleated RBC % (auto) 0.0 Total Bilirubin < 0.2 Direct Bilirubin < 0.2 AST 35 ALT 83 H Alkaline Phosphatase 115 Ammonia 52 Total Protein 6.9 Albumin 3.9 Valproic Acid 59.7 DS: Summary Hospital Course Hospital Course: Guillermo is a 35-year-old male with history of depression, PTSD, chronic SI, substance abuse, opiate dependent on methadone. He has multiple inpatient psych admissions for relapse, SI, depression, and mood dysregulation. He has chronic homelessness with minimal family support, financial stress. Hx of non-adherence with follow up outpatient appointments. On admission, patient was depressed and continued to have chronic intermittent SI but remained passive. His home medications were continued. Patient was very forthcoming during interviews, talking about his life and how his experiences influenced his perception on himself and others and contributed to his depression. Patient was able and willing to discuss his substance abuse and struggles with committing to sobriety in a very open and vulnerable way; creative services writer discussed that for most, surrounding oneself with positive support is essential and this often includes going to groups such as AA, NA or other similar types, daily or sometimes multiple times a day for many months in a row. While this moderately surprise patient he said he thinks he is willing to do so. Patient attended groups and demonstrated appropriate behaviors and good and impulse control. Patient asked for medication adjustments. His Depakote was increased though his level did not change much. He agreed to start Wellbutrin and taper off and discontinue Remeron. Patient was started on Wellbutrin XL 150 mg which he said was very helpful and reported that his depression resolved. He felt optimistic and hopeful about staying sober and intermittent, passive SI also resolved. He initially hoped to stay with his mother, but learned she was in the hospital for a kidney complication and could not get a hold of his brother to get her [place]. Patient instead hoped to get into a [facility] but understood that if there was no bed he may need to go to a longterm until one became available. Pt planned to discharge on the Saturday following. Over the weekend, patient was reportedly in overall good mood, without SI and brighter affect. On Saturday however when there was no program with an available bed, patient reported that he was suicidal. He made a short rope out of she had betting and handed it to the nurse asking him not tell anyone; patient did not use it at all or engage in any self-harm; he simply made it and turned it in to staff. Recyclable Materials Sorter discussed this with patient who said that when he 1st heard there was no bed available, he got very emotional and felt suicidal; however he says this was just a feeling and that it had passed and he was not suicidal. Patient shared that his worry was that if he was discharged to a longterm, he would likely relapse; he felt he would be fine if he only slept there at night but that shelters make people leave during the day and he would be vulnerable to relapse while walking the streets. Recyclable Materials Sorter helped patient devise a plan for this which involved going to AA or NA meetings (he was given a list of all local meetings) perhaps 3 a day to help him stay sober during the day; creative services writer also offered for patient to remain on the unit another day with the hope of finding an available Respite that could buy him some time until bed in a program became available or he was able to get access to his mother's. But while that offer remained, creative services writer discussed with patient that whether he is discharged today to a longterm or if he were to go straight to a 30 day program, what matters most is his desire to work on his sobriety and willingness to put in the effort to surround himself with as much stability as possible, such as going to 3 groups a day which creative services writer explained will be just as necessary after a 30 day program as it will be for the week or so he has to stay at a longterm while waiting for a program (of note, patient said that he liked AA and NA meetings in the past and even ran meetings for time). Patient said he agreed with this assessment. He declined to remain on the unit any longer, asked for discharge and said he would be fine, reiterating that it was not suicidal. Team discussed case and agreed that patient has a history of emotional reactivity, relapse and missing follow up appointments and yet he has been able to live in the community for years despite being chronically vulnerable to relapse or becoming dysregulated; he also has a hx of chronic, intermittent SI which flares with his emotions, which he is mostly able to cope with in the community as it typically resolves as fast as it arrives. Recyclable Materials Sorter and LOIS Melgar agree that these symptoms will not resolve with more time on the unit but rather require care home commitment to outpatient therapy, something with which patient has not been willing or ready to engage. Currently, patient denies SI and he is at his baseline. And while he is vulnerable to becoming emotional reactive, he is not in imminent risk of harm to self or others and does not meet criteria for involuntary commitment. He is requesting discharge which creative services writer agrees is appropriate. ? Time spent discussing smoking cessation with patient: 3 to 10 minutes Status at Discharge Functional status at discharge: independent ambulation Overall status at discharge: patient is back to baseline Time Spent with Patient Time attestation: Total time spent providing and/or coordinating discharge services: Time spent: Greater than 30 minutes Discharge Plan Discharge Patient Disposition: Correction Discharge Diagnosis: MDD, recurrent, severe w/out psychosis; in partial remission [facility]errals: [facility] [Other] - 12/19/20 5:00 pm ( [facility] Referral Therapy and Psychiatry through [facility] provided on-site Screening for co-occurring disorder Support and will be connected with manager disaster recovery) Dr. Maggie Anthony [Other] - 1 Week ( [facility] Psychiatry Services ) Digna Lepe [Nurse Practitioner] - 01/03/21 9:00 am (on phone) Discharge Medications: New divalproex 500 mg Tablet Extended Release 24 Hr 1,500 mg PO BEDTIME 30 Days Qty: 90 RF: 0 fluoxetine 20 mg Capsule 40 mg PO DAILY 30 Days Qty: 60 RF: 0 risperidone 0.5 mg Tablet 0.5 mg PO BEDTIME 30 Days Qty: 30 RF: 0 bupropion HCl 150 mg Tablet Extended Release 24 Hr 150 mg PO DAILY 30 Days Qty: 30 RF: 0 hydroxyzine HCl 50 mg Tablet 50 mg PO BID PRN (Reason: Anxiety) 30 Days Qty: 60 RF: 0 methadone [Methadose] 10 mg/mL Concentrate 140 mg PO DAILY Qty: 0 RF: 0 Narcan 4 mg/actuation [place],Non-Aerosol 4 mg intranasal (ALT) ONCE PRN (Reason: opioid intoxication) 1 Days Qty: 2 RF: 0 sennosides-docusate sodium [Senna Plus] 8.6-50 mg Tablet 1 tab PO DAILY 30 Days Qty: 30 RF: 0 Continued naproxen 500 mg tablet 500 mg PO BID PRN (Reason: Pain) RF: 0 trazodone 50 mg Tablet 50 mg PO BEDTIME PRN (Reason: Insomnia) 30 Days Qty: 30 RF: 0 atorvastatin 10 mg Tablet 10 mg PO BEDTIME 30 Days Qty: 30 RF: 0 gabapentin 400 mg Capsule 400 mg PO TID 14 Days Qty: 42 RF: 1 tamsulosin 0.4 mg Capsule 0.4 mg PO DAILY 30 Days Qty: 30 RF: 0 nicotine (polacrilex) 4 mg gum 1 mg PO Q2H PRN (Reason: Nicotine Cravings) 30 Days Qty: 100 RF: 0 baclofen 10 mg Tablet 10 mg PO TID PRN (Reason: Back Pain) 30 Days Qty: 60 RF: 0 prazosin 2 mg capsule 2 mg PO BEDTIME 30 Days Qty: 30 RF: 0 Changed clonidine HCl 0.1 mg tablet 0.1 mg PO BID PRN (Reason: anxiety) 30 Days Qty: 60 RF: 0 Discontinued methadone 10 mg Tablet 135 mg PO DAILY RF: 0 mirtazapine [Remeron] 30 mg tablet 30 mg PO BEDTIME 30 Days Qty: 30 RF: 0 divalproex 500 mg Tablet Extended Release 24 Hr 1,000 mg PO BEDTIME 30 Days Qty: 60 RF: 0 fluoxetine [Prozac] 20 mg capsule 20 mg PO DAILY 30 Days Qty: 30 RF: 0 risperidone 1 mg Tablet 1 mg PO BEDTIME 30 Days Qty: 30 RF: 0 No Action cephalexin 500 mg capsule 500 mg PO Q12H 5 Days Qty: 10 RF: 0 Discharge Orders: Discharge Order (Routine); Ordered 12/19/20 Ordered By: Hakeem Roland Diet: regular diet Activity on Discharge: As tolerated Stand Alone Forms: Patient Portal Discharge page, Community Support Care Plan Goals: Maintain mood and safe behaviors Take medications as prescribed Continue to pursue sobriety Practice coping skills Continue with outpatient providers and reach out to them as needed Health Concerns: Mood instability and behaviors Sobriety Plan of Treatment: Follow up with your psychiatric provider regarding above concerns Take medications as prescribed Assessment: Risk assessment at time of discharge:? Patient was interviewed prior to discharge and found to be fully oriented and without any SI or HI. Patient has insight and demonstrates good judgment in terms of wanting to pursue treatment. Patient is not in imminent risk of harm to self or others and has a safety plan that includes presenting to the closest ER or calling 911 if feeling unsafe.? Patient has been observed closely by nursing and unit staff throughout admission. Discharge Date/Time: 12/19/20 14:30
== END 2020-12-19 14:30 | disposition home or self-care (01) | DRG 751 ==
LOC: HO.ED 13:14 → HO.PM5 12-09 13:52
PROVIDERS: Clinical Nurse Specialist Psychiatric/Mental Health, Adult; Nurse Practitioner Family; Psychiatry & Neurology Psychiatry; Registered Nurse; Admitting Provider Psychiatry & Neurology Psychiatry; Emergency Provider Emergency Medicine; Visit Provider Psychiatry & Neurology Psychiatry
DX: F33.2 Major depressive disorder, recurrent severe without psychotic features (principal); F11.20 Opioid dependence, uncomplicated; R45.851 Suicidal ideations; F17.210 Nicotine dependence, cigarettes, uncomplicated; Z71.6 Tobacco abuse counseling; F43.10 Post-traumatic stress disorder, unspecified; F14.20 Cocaine dependence, uncomplicated; G89.29 Other chronic pain; Z20.822 Contact with and (suspected) exposure to COVID-19; Z79.1 Long term (current) use of non-steroidal anti-inflammatories (NSAID); Z79.899 Other long term (current) drug therapy
CPT/HCPCS: 36415; 80048; 80061; 80076; 80143; 80164; 80179; 80307; 82077; 82140; 82607; 82746; 83036; 83540; 84439; 84443; 85025; 87635; 93005; 99284; 99285

== ENCOUNTER 2020-12-20 03:55 | Emergency (ER) | payer MEDICAID, SELFPAY ==
--- NOTE | ~2020-12-20 | XR_ITS ---
EXAMINATION: XR HIP, LEFT WITH PELVIS XR FEMUR, LEFT XR KNEE, LEFT XR FOOT, LEFT CLINICAL INFORMATION: Pain. Fall. COMPARISON: 08/14/2016 TECHNIQUE: Frontal view of the pelvis with 2 views of the left hip. 2 views of the left femur. 3 views of the left knee. 3 views of the left foot. FINDINGS: Pelvis/left hip: No fracture or dislocation. The femoral heads are well-seated within their acetabula. The joint spaces are maintained. The pelvic rim is intact. The sacroiliac joints and pubic symphysis are intact. Radiopaque densities overlie the spine. Left femur: No fracture or cortical disruption. The soft tissues are unremarkable. Left knee: No fracture or subluxation. Compartmental joint spaces are maintained. Small enthesophyte at the patella. No joint effusion. Left foot: No fracture or dislocation. Alignment is anatomic. Joint spaces are maintained. The soft tissues are unremarkable. XR/XR knee LT 3V IMPRESSION: No acute abnormality of the imaged left lower extremity.
--- NOTE | ~2020-12-20 | XR_ITS ---
EXAMINATION: XR HIP, LEFT WITH PELVIS XR FEMUR, LEFT XR KNEE, LEFT XR FOOT, LEFT CLINICAL INFORMATION: Pain. Fall. COMPARISON: 08/14/2016 TECHNIQUE: Frontal view of the pelvis with 2 views of the left hip. 2 views of the left femur. 3 views of the left knee. 3 views of the left foot. FINDINGS: Pelvis/left hip: No fracture or dislocation. The femoral heads are well-seated within their acetabula. The joint spaces are maintained. The pelvic rim is intact. The sacroiliac joints and pubic symphysis are intact. Radiopaque densities overlie the spine. Left femur: No fracture or cortical disruption. The soft tissues are unremarkable. Left knee: No fracture or subluxation. Compartmental joint spaces are maintained. Small enthesophyte at the patella. No joint effusion. Left foot: No fracture or dislocation. Alignment is anatomic. Joint spaces are maintained. The soft tissues are unremarkable. XR/XR femur LT 2V IMPRESSION: No acute abnormality of the imaged left lower extremity.
--- NOTE | ~2020-12-20 | XR_ITS ---
EXAMINATION: XR HIP, LEFT WITH PELVIS XR FEMUR, LEFT XR KNEE, LEFT XR FOOT, LEFT CLINICAL INFORMATION: Pain. Fall. COMPARISON: 08/14/2016 TECHNIQUE: Frontal view of the pelvis with 2 views of the left hip. 2 views of the left femur. 3 views of the left knee. 3 views of the left foot. FINDINGS: Pelvis/left hip: No fracture or dislocation. The femoral heads are well-seated within their acetabula. The joint spaces are maintained. The pelvic rim is intact. The sacroiliac joints and pubic symphysis are intact. Radiopaque densities overlie the spine. Left femur: No fracture or cortical disruption. The soft tissues are unremarkable. Left knee: No fracture or subluxation. Compartmental joint spaces are maintained. Small enthesophyte at the patella. No joint effusion. Left foot: No fracture or dislocation. Alignment is anatomic. Joint spaces are maintained. The soft tissues are unremarkable. XR/XR foot LT min 3V IMPRESSION: No acute abnormality of the imaged left lower extremity.
--- NOTE | ~2020-12-20 | XR_ITS ---
EXAMINATION: XR HIP, LEFT WITH PELVIS XR FEMUR, LEFT XR KNEE, LEFT XR FOOT, LEFT CLINICAL INFORMATION: Pain. Fall. COMPARISON: 08/14/2016 TECHNIQUE: Frontal view of the pelvis with 2 views of the left hip. 2 views of the left femur. 3 views of the left knee. 3 views of the left foot. FINDINGS: Pelvis/left hip: No fracture or dislocation. The femoral heads are well-seated within their acetabula. The joint spaces are maintained. The pelvic rim is intact. The sacroiliac joints and pubic symphysis are intact. Radiopaque densities overlie the spine. Left femur: No fracture or cortical disruption. The soft tissues are unremarkable. Left knee: No fracture or subluxation. Compartmental joint spaces are maintained. Small enthesophyte at the patella. No joint effusion. Left foot: No fracture or dislocation. Alignment is anatomic. Joint spaces are maintained. The soft tissues are unremarkable. XR/XR hip LT w PEL1V IMPRESSION: No acute abnormality of the imaged left lower extremity.
[2020-12-20 04:04] VITALS: BP 133/73; PULSE 112; RESP 18; TEMP 36.5; O2SAT 98; BMI 36.4
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
[2020-12-20] MEDS: Acetaminophen 325 MG TABLET 975 MG PO (04:22)
[2020-12-20] MEDS: Ibuprofen 400 MG TABLET PO (04:23)
[2020-12-20 04:52] LABS: Basophils Percent Auto 0.1 % (0-2); Eosinophils Percent Auto 0.2 % (0-4); Hematocrit 37.3 % (42-52); Hemoglobin 12.2 g/dl (14.0-18.0); Imm Gran Abs Auto 0.08 X10*3/uL (0.00-0.03); Imm Gran Pct Auto 0.7 % (0.0-0.4); Lymphocytes Absolute Auto 1.3 X10*3/uL (1.2-4.9); Lymphocytes Percent Auto 10.6 % (20-40); MANUAL DIFF FLAG SCAN; Mean Corpuscular HGB Conc 32.7 g/dl (31.0-36.0); Mean Corpuscular Hemoglobin 27.2 pg (27.0-33.0); Mean Corpuscular Volume 83.1 fL (80-98); Monocytes Absolute Auto 1.5 X10*3/uL (0.1-1.2); Monocytes Percent Auto 12.6 % (2-11); Neutrophils Absolute Auto 9.1 X10*3/uL (2.0-8.3); Neutrophils Percent Auto 75.8 % (45-73); Platelet Count 185 X10*3/uL (160-400); Red Blood Count 4.49 X10*6/uL (4.60-5.80); Red Cell Distribution Width 14.3 % (11.0-16.0); SCAN SMEAR FLAG 1; White Blood Count 12.1 X10*3/uL (4.8-10.8)
[2020-12-20 04:59] LABS: Prothrombin Time 11.7 SEC (9.9-13.0)
[2020-12-20 05:05] LABS: COVID-19 Test Negative (Negative)
--- NOTE | 2020-12-20 05:08 | PC.NURSE ---
IV PLACED TO LAC, LABS DRAWN TO LAB, COVID SWAB OBTAINED. PT MEDICATED PER EMAR FOR PAIN. PT TO X-RAY. WILL CONTINUE TO MONITOR PT.
[2020-12-20 05:11] LABS: SLIDE REVIEW VERIFIED
[2020-12-20 05:13] LABS: Ethanol < 10 mg/dL
[2020-12-20 05:25] LABS: Alanine Aminotransferase 49 U/L (0-40); Albumin Level 4.3 g/dL (3.5-5.0); Alkaline Phosphatase 110 U/L (39-117); Anion Gap 18 (12-20); Aspartate Amino Transferase 65 U/L (5-37); Bilirubin Total 0.2 mg/dL (0.0-1.0); Blood Urea Nitrogen 18 mg/dL (9-16); Calcium 9.7 mg/dL (8.4-10.2); Carbon Dioxide 27 mmol/L (22-29); Chloride 100 mmol/L (96-108); Creatinine Clr Calc Pharmacy 135.4; Estimated Glomerular Filt Rate > 60; Glucose Random 90 mg/dL (60-115); Potassium 4.9 mmol/L (3.3-5.1); Sodium 140 mmol/L (135-145); Total Protein 7.9 g/dL (6.5-8.0)
== END 2020-12-20 06:13 | disposition home or self-care (01) ==
PROVIDERS: Emergency Provider Student in an Organized Health Care Education/Training Program
DX: L03.032 Cellulitis of left toe (principal); M79.675 Pain in left toe(s); M25.562 Pain in left knee; M79.652 Pain in left thigh; Z91.81 History of falling; Z20.822 Contact with and (suspected) exposure to COVID-19; F11.20 Opioid dependence, uncomplicated
CPT/HCPCS: 36415; 73502; 73552; 73562; 73630; 80053; 82077; 85025; 85610; 87635; 99283

== ENCOUNTER 2020-12-20 14:56 | Emergency (ER) | payer MEDICAID, SELFPAY ==
[2020-12-20 15:04] VITALS: BP 123/76; PULSE 87; RESP 18; TEMP 36.6; O2SAT 96; BMI 28.5
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
--- NOTE | 2020-12-20 16:11 | PHA.MEDREC ---
Pharmacy Consult ? Medication Reconciliation Pharmacy has completed the medication reconciliation.
[2020-12-20 16:22] LABS: COVID-19 Test Negative (Negative); IDNOW Serial# 08D9AD1C
[2020-12-20 16:37] LABS: Valproate 35.3 mcg/mL (50.0-100.0)
[2020-12-20] MEDS: Divalproex Sodium ER 500 MG TAB.ER.24H 1500 MG PO (22:31)
[2020-12-20] MEDS: cephALEXin 500 MG CAPSULE PO (22:31)
[2020-12-20] MEDS: Atorvastatin Calcium 10 MG TABLET PO (22:31)
[2020-12-20 22:32] VITALS: BP 116/72; PULSE 75
[2020-12-20] MEDS: Gabapentin 400 MG CAPSULE PO (22:32)
[2020-12-20] MEDS: risperiDONE 0.5 MG TABLET PO (22:32)
[2020-12-20] MEDS: Prazosin HCL 1 MG CAPSULE 2 MG PO (22:32)
[2020-12-20] MEDS: Baclofen 10 MG TABLET PO (22:37)
[2020-12-20] MEDS: traZODone HCL 50 MG TABLET PO (22:37)
[2020-12-20 22:38] VITALS: BP 116/72; PULSE 75
[2020-12-20 23:29] LABS: Amphetamine Screen Urine Not Detected (Not Detect); Barbiturates, Urine Not Detected (Not Detect); Benzodiazepines Screen Urine Not Detected (Not Detect); Cannabinoid Screen Urine POSITIVE (Not Detect); Cocaine Screen Urine POSITIVE (Not Detect); Fentanyl, urine POSITIVE (Not Detect); Opiate Screen Urine POSITIVE (Not Detect); Phencyclidine Screen Urine Not Detected (Not Detect)
--- NOTE | 2020-12-21 | ECG_ITS ---
Test Reason : PRE ADMISSION Blood Pressure : / mmHG Vent. Rate : 061 BPM Atrial Rate : 061 BPM P-R Int : 168 ms QRS Dur : 086 ms QT Int : 458 ms P-R-T Axes : 043 062 055 degrees QTc Int : 461 ms Normal sinus rhythm Normal ECG When compared with ECG of 08-DEC-2020 19:27, No significant change was found Referred By: Maritza Flower Electronically Signed By:MAXIMINO CAMARILLO
--- NOTE | 2020-12-21 00:56 | PC.NURSE ---
Patient is in bed appears sleeping, no distress observed/reported at this time, [facility] assessed the patient, disposition section 12 inpatient bed search, patient and provider both aware, patient compliant with his medication, will continue to monitor.
[2020-12-21 06:35] VITALS: BP 121/63; PULSE 66; RESP 16; TEMP 36.6; O2SAT 94
--- NOTE | 2020-12-21 06:36 | PC.NURSE ---
Patient slept through the night, no distress observed/reported, VSS, medication compliant, patient is on Keflex for left toe infection, behavior appropriate, patient is on Methadon dose entered by our pharmacy any question should be addressed to in house pharmacy, appetite good, will continue to monitor.
[2020-12-21] MEDS: FLUoxetine HCl 20 MG CAPSULE 40 MG PO (10:20)
[2020-12-21] MEDS: buPROPion HCl XL 150 MG TAB.ER.24H PO (10:20)
[2020-12-21] MEDS: Tamsulosin HCL 0.4 MG CAPSULE PO (10:20)
[2020-12-21] MEDS: Gabapentin 400 MG CAPSULE PO ×3 (10:21→20:53)
[2020-12-21] MEDS: Baclofen 10 MG TABLET PO ×3 (10:26→20:53)
[2020-12-21] MEDS: cephALEXin 500 MG CAPSULE PO ×2 (11:13→20:53)
[2020-12-21] MEDS: methADONE HCl 20 MG/2 ML ORAL.CONC 140 MG PO (11:27)
--- NOTE | 2020-12-21 12:02 | PC.NURSE ---
pt slept all morning, woke and asked for daily meds and methodone. HE has been medicated as orderd, has been in room calm and cooperative.
[2020-12-21 16:33] VITALS: BP 121/63; PULSE 66
[2020-12-21] MEDS: Nicotine Polacrilex 2 MG GUM BUCCAL ×2 (16:33→20:53)
[2020-12-21] MEDS: cloNIDine HCL 0.1 MG TABLET PO (16:33)
[2020-12-21 20:52] VITALS: BP 108/59; PULSE 68
[2020-12-21] MEDS: Prazosin HCL 1 MG CAPSULE 2 MG PO (20:52)
[2020-12-21 20:53] VITALS: BP 108/59; PULSE 68; RESP 16; O2SAT 97
[2020-12-21] MEDS: risperiDONE 0.5 MG TABLET PO (20:53)
[2020-12-21] MEDS: Divalproex Sodium ER 500 MG TAB.ER.24H 1500 MG PO (20:53)
[2020-12-21] MEDS: Atorvastatin Calcium 10 MG TABLET PO (20:53)
[2020-12-22 01:32] VITALS: BP 106/60; PULSE 76
[2020-12-22] MEDS: cloNIDine HCL 0.1 MG TABLET PO (01:32)
[2020-12-22] MEDS: Nicotine Polacrilex 2 MG GUM BUCCAL (01:32)
[2020-12-22] MEDS: hydrOXYzine HCL 50 MG TABLET PO (01:32)
[2020-12-22 01:35] VITALS: BP 106/60; PULSE 76; RESP 18; TEMP 36.4; O2SAT 98
--- NOTE | 2020-12-22 06:09 | PC.NURSE ---
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
--- NOTE | 2020-12-22 07:19 | PC.NURSE ---
patient appears in no distress at present, appears to remain asleep. patient due to dc to [facility] today at 0830, will prepare client for dc.
[2020-12-22] MEDS: cephALEXin 500 MG CAPSULE PO (08:09)
[2020-12-22] MEDS: Tamsulosin HCL 0.4 MG CAPSULE PO (08:09)
[2020-12-22] MEDS: buPROPion HCl XL 150 MG TAB.ER.24H PO (08:09)
[2020-12-22] MEDS: methADONE HCl 20 MG/2 ML ORAL.CONC 140 MG PO (08:10)
[2020-12-22] MEDS: FLUoxetine HCl 20 MG CAPSULE 40 MG PO (08:10)
[2020-12-22] MEDS: Gabapentin 400 MG CAPSULE PO (08:10)
== END 2020-12-22 09:03 ==
PROVIDERS: Physician Assistant; Emergency Provider Emergency Medicine Emergency Medical Services
DX: T14.91XA Suicide attempt, initial encounter (principal); F11.20 Opioid dependence, uncomplicated; F19.10 Other psychoactive substance abuse, uncomplicated; F33.2 Major depressive disorder, recurrent severe without psychotic features; F43.10 Post-traumatic stress disorder, unspecified; E78.5 Hyperlipidemia, unspecified; F17.210 Nicotine dependence, cigarettes, uncomplicated; Y93.89 Activity, other specified; Y92.85 Railroad track as the place of occurrence of the external cause; Y99.9 Unspecified external cause status; Z20.822 Contact with and (suspected) exposure to COVID-19; Z79.899 Other long term (current) drug therapy; Z79.02 Long term (current) use of antithrombotics/antiplatelets
CPT/HCPCS: 36415; 80164; 80307; 87635; 93005; 99285

== ENCOUNTER 2020-12-27 09:23 | Emergency (ER) | payer MEDICAID, SELFPAY ==
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
--- NOTE | ~2020-12-27 | XR_ITS ---
EXAMINATION: XR CHEST CLINICAL INFORMATION: Chills and night sweats. COMPARISON: 05/28/2009 chest radiographs. TECHNIQUE: 2 views of the chest were obtained. FINDINGS: No significant abnormality is noted involving the heart, lungs, mediastinum, bony thorax or soft tissues. XR/XR chest 2V IMPRESSION: No acute cardiopulmonary process.
[2020-12-27 10:01] VITALS: BP 110/65; BP 124/82; PULSE 76; RESP 18; TEMP 36.8; O2SAT 96; O2SAT 99; BMI 35.4
--- NOTE | 2020-12-27 10:04 | ECG_ITS ---
Test Reason : GEN MED Blood Pressure : / mmHG Vent. Rate : 068 BPM Atrial Rate : 068 BPM P-R Int : 162 ms QRS Dur : 090 ms QT Int : 402 ms P-R-T Axes : 030 042 034 degrees QTc Int : 427 ms Normal sinus rhythm Normal ECG When compared with ECG of 21-DEC-2020 20:45, No significant change was found Referred By: Chely Cortés Electronically Signed By:MAXIMINO CAMARILLO
[2020-12-27 10:40] LABS: MANUAL DIFF FLAG NO
[2020-12-27 10:41] LABS: Basophils Percent Auto 0.2 % (0-2); Eosinophils Absolute Auto 0.1 X10*3/uL (0.0-0.4); Eosinophils Percent Auto 1.6 % (0-4); Hematocrit 44.5 % (42-52); Hemoglobin 14.9 g/dl (14.0-18.0); Imm Gran Abs Auto 0.09 X10*3/uL (0.00-0.03); Imm Gran Pct Auto 1.5 % (0.0-0.4); Lymphocytes Absolute Auto 1.6 X10*3/uL (1.2-4.9); Lymphocytes Percent Auto 25.2 % (20-40); Mean Corpuscular HGB Conc 33.5 g/dl (31.0-36.0); Mean Corpuscular Hemoglobin 27.2 pg (27.0-33.0); Mean Corpuscular Volume 81.4 fL (80-98); Mean Platelet Volume 9.2 fL (9.4-12.4); Monocytes Absolute Auto 0.8 X10*3/uL (0.1-1.2); Monocytes Percent Auto 13.6 % (2-11); Neutrophils Absolute Auto 3.6 X10*3/uL (2.0-8.3); Neutrophils Percent Auto 57.9 % (45-73); Platelet Count 192 X10*3/uL (160-400); Red Blood Count 5.47 X10*6/uL (4.60-5.80); Red Cell Distribution Width 13.6 % (11.0-16.0); White Blood Count 6.2 X10*3/uL (4.8-10.8)
[2020-12-27] MEDS: 0.9 % Sodium Chloride 1,000 ML 999 ML IVCONT (10:50)
[2020-12-27 10:56] LABS: Prothrombin Time 11.6 SEC (9.9-13.0)
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
[2020-12-27 11:14] LABS: Alanine Aminotransferase 66 U/L (0-40); Albumin Level 4.7 g/dL (3.5-5.0); Alkaline Phosphatase 121 U/L (39-117); Anion Gap 17 (12-20); Aspartate Amino Transferase 41 U/L (5-37); Bilirubin Total 0.4 mg/dL (0.0-1.0); Blood Urea Nitrogen 12 mg/dL (9-16); Carbon Dioxide 25 mmol/L (22-29); Chloride 98 mmol/L (96-108); Creatinine Clr Calc Pharmacy 130.7; Estimated Glomerular Filt Rate > 60; Glucose Random 103 mg/dL (60-115); Lipase 18 U/L (8-78); Magnesium 2.2 mg/dL (1.6-2.6); Potassium 5.1 mmol/L (3.3-5.1); Sodium 135 mmol/L (135-145); Total Protein 8.3 g/dL (6.5-8.0)
[2020-12-27 11:17] LABS: Troponin-I High Sensitivity < 3.5 ng/L (<3.5-35.0)
[2020-12-27 12:02] LABS: Influenza A PCR NEGATIVE (Negative); Influenza B PCR NEGATIVE (Negative); Resp Syncy Virus RNA Qual PCR NEGATIVE (Negative); SARS COV2 PCR INHOUSE NEGATIVE (Negative)
[2020-12-27 12:53] VITALS: BP 112/52; PULSE 62; RESP 14; TEMP 36.8; O2SAT 92
--- NOTE | 2020-12-27 13:20 | PC.NURSE ---
Report given to staff at [facility] and they were notified of his return back to their facility.
[2020-12-27 13:35] VITALS: O2SAT 95
== END 2020-12-27 14:41 | disposition home or self-care (01) ==
PROVIDERS: Physician Assistant Medical; Emergency Provider Emergency Medicine
DX: R10.9 Unspecified abdominal pain (principal); K59.00 Constipation, unspecified; R68.83 Chills (without fever); R61 Generalized hyperhidrosis; Z20.822 Contact with and (suspected) exposure to COVID-19; R53.1 Weakness; F11.20 Opioid dependence, uncomplicated; F17.210 Nicotine dependence, cigarettes, uncomplicated; Z91.5 Personal history of self-harm
CPT/HCPCS: 0241U; 36415; 71046; 74176; 80053; 83690; 83735; 84484; 85025; 85610; 93005; 96360; 99284

== ENCOUNTER 2021-01-19 14:35 | Emergency (ER) | payer MEDICAID, SELFPAY ==
[2021-01-19 14:50] VITALS: BP 103/51; BP 136/90; PULSE 92; PULSE 98; RESP 18; O2SAT 96; O2SAT 98; BMI 33.2
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
[2021-01-19 15:34] VITALS: O2SAT 95
[2021-01-19 16:23] VITALS: O2SAT 96
== END 2021-01-19 20:16 | disposition home or self-care (01) ==
PROVIDERS: Emergency Provider Emergency Medicine
DX: F33.1 Major depressive disorder, recurrent, moderate (principal); F11.20 Opioid dependence, uncomplicated; R45.851 Suicidal ideations; F14.10 Cocaine abuse, uncomplicated; F17.210 Nicotine dependence, cigarettes, uncomplicated; Z71.6 Tobacco abuse counseling; F12.90 Cannabis use, unspecified, uncomplicated; Z79.899 Other long term (current) drug therapy
CPT/HCPCS: 99284

== ENCOUNTER 2021-02-08 22:43 | Inpatient (IN) | payer OTHER, MEDICAID, SELFPAY ==
[2021-02-08 22:52] VITALS: BP 121/80; PULSE 89; RESP 18; TEMP 37.4; O2SAT 94; BMI 26.6
--- NOTE | 2021-02-09 | ECG_ITS ---
Test Reason : MEDCLEARANCE Blood Pressure : / mmHG Vent. Rate : 060 BPM Atrial Rate : 060 BPM P-R Int : 172 ms QRS Dur : 094 ms QT Int : 476 ms P-R-T Axes : 036 046 055 degrees QTc Int : 476 ms Normal sinus rhythm Normal ECG When compared with ECG of 27-DEC-2020 10:29, QT has lengthened Referred By: Whitney Guillen Electronically Signed By:LU ROSALES MD
[2021-02-09 00:21] LABS: COVID-19 Test Negative (Negative); IDNOW Serial# 9DD0AD1C
--- NOTE | 2021-02-09 00:41 | MHC.CARE ---
Pt endorses SI with this procedure writer. States he lives with his mother and wants to . Pt states he has not followed up w/ any providers following d/c. Endorses that he is depressed, poor vinay/sleep. Staring into space, delayed responses then reporting I just want to does not report a plan. Pt will be seen in the am.
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
[2021-02-09 02:12] VITALS: BP 118/76; PULSE 76; RESP 16; TEMP 37.1; O2SAT 96
[2021-02-09 02:19] LABS: Amphetamine Screen Urine Not Detected (Not Detect); Barbiturates, Urine Not Detected (Not Detect); Benzodiazepines Screen Urine Not Detected (Not Detect); Cannabinoid Screen Urine Not Detected (Not Detect); Cocaine Screen Urine POSITIVE (Not Detect); Fentanyl, urine POSITIVE (Not Detect); Opiate Screen Urine POSITIVE (Not Detect); Phencyclidine Screen Urine Not Detected (Not Detect)
[2021-02-09 02:41] VITALS: BP 118/76; PULSE 76
[2021-02-09] MEDS: Divalproex Sodium ER 500 MG TAB.ER.24H 1500 MG PO ×2 (02:41→20:35)
[2021-02-09] MEDS: Baclofen 10 MG TABLET PO ×3 (02:41→20:36)
[2021-02-09] MEDS: Prazosin HCL 5 MG CAPSULE PO (02:41)
[2021-02-09] MEDS: Tamsulosin HCL 0.4 MG CAPSULE PO ×2 (02:41→20:36)
[2021-02-09] MEDS: risperiDONE 0.5 MG TABLET PO (02:42)
[2021-02-09] MEDS: Gabapentin 600 MG TABLET PO ×4 (02:42→20:35)
[2021-02-09] MEDS: Atorvastatin Calcium 10 MG TABLET PO ×2 (02:42→20:36)
[2021-02-09] MEDS: hydrOXYzine HCL 50 MG TABLET PO ×4 (02:42→20:36)
--- NOTE | 2021-02-09 06:33 | PC.NURSE ---
Patient slept through the night, no distress observed/reported, medication compliant, med rec completed/approved by provider, Methadone dose verified this morning, behavior appropriate at this time, appetite good, VSS, BHN referral completed and confirmed by Brian, patient will be seen in the morning, will continue to monitor.
[2021-02-09 10:00] VITALS: BP 137/68; PULSE 74; TEMP 36.9; O2SAT 96
[2021-02-09] MEDS: methADONE HCl 20 MG/2 ML ORAL.CONC 140 MG PO (10:05)
[2021-02-09] MEDS: Nicotine Polacrilex 2 MG GUM 4 MG BUCCAL ×3 (10:12→20:34)
[2021-02-09] MEDS: ARIPiprazole 15 MG TABLET PO (10:28)
[2021-02-09] MEDS: buPROPion HCL 100 MG TABLET 200 MG PO (10:28)
[2021-02-09 12:49] LABS: MANUAL DIFF FLAG NO
[2021-02-09 12:51] LABS: Basophils Percent Auto 0.3 % (0-2); Eosinophils Absolute Auto 0.2 X10*3/uL (0.0-0.4); Eosinophils Percent Auto 2.4 % (0-4); Hematocrit 40.8 % (42-52); Hemoglobin 13.4 g/dl (14.0-18.0); Imm Gran Abs Auto 0.03 X10*3/uL (0.00-0.03); Imm Gran Pct Auto 0.4 % (0.0-0.4); Lymphocytes Absolute Auto 2.2 X10*3/uL (1.2-4.9); Mean Corpuscular HGB Conc 32.8 g/dl (31.0-36.0); Mean Corpuscular Hemoglobin 27.7 pg (27.0-33.0); Mean Corpuscular Volume 84.3 fL (80-98); Mean Platelet Volume 9.4 fL (9.4-12.4); Monocytes Absolute Auto 1.1 X10*3/uL (0.1-1.2); Monocytes Percent Auto 14.4 % (2-11); Neutrophils Absolute Auto 4.1 X10*3/uL (2.0-8.3); Neutrophils Percent Auto 53.5 % (45-73); Platelet Count 162 X10*3/uL (160-400); Red Blood Count 4.84 X10*6/uL (4.60-5.80); Red Cell Distribution Width 14.1 % (11.0-16.0); White Blood Count 7.6 X10*3/uL (4.8-10.8)
[2021-02-09 13:19] LABS: Alanine Aminotransferase 216 U/L (0-40); Albumin Level 3.9 g/dL (3.5-5.0); Alkaline Phosphatase 131 U/L (39-117); Anion Gap 10 (12-20); Aspartate Amino Transferase 110 U/L (5-37); Bilirubin Total 0.2 mg/dL (0.0-1.0); Blood Urea Nitrogen 14 mg/dL (9-16); Calcium 9.4 mg/dL (8.4-10.2); Carbon Dioxide 31 mmol/L (22-29); Chloride 104 mmol/L (96-108); Creatinine Clr Calc Pharmacy 113.5; Estimated Glomerular Filt Rate > 60; Glucose Random 103 mg/dL (60-115); Potassium 3.9 mmol/L (3.3-5.1); Sodium 141 mmol/L (135-145); Total Protein 6.9 g/dL (6.5-8.0)
[2021-02-09] MEDS: NaPROXEN 500 MG TABLET PO (15:54)
[2021-02-09 16:59] VITALS: BP 111/69; PULSE 76; RESP 16; TEMP 36.4; O2SAT 98
--- NOTE | 2021-02-09 18:09 | PC.ADMIT ---
Addendum entered by Zohra Rivera RN 02/09/21 18:29: Patient tox screen positive for Opiates, fentanyl and cocaine. Patient endorses depression 12/13. Patient agreeable to admission and states, I just want feel better, I don't want to live like this anymore. Patient has long history of opiod and cocaine abuse and recently left [facility] after 2 months. He states he was clean but left the program because there were too many rules. Patient has a history of non compliance with meds and lack of motiviation to participate in recovery programs. Currently on Methadone. Original Note: Patient arrived on unit from ED accompanied by security and this gas distribution supervisor. Upon approach in ED patient appeared calm and neatly groomed [facility]. Speech was clear and appropriate. 'Alert and oriented x4.Eye contact intermittent. Cooperative with transfer to unit. Vital signs stable and no evidence of withdrawal.Patient was oriented to unit and taken to his room. Admission assessment completed at the bedside with patient cooperation.Patient was engaged in assessment process and endorses wanting help. Patient denies AVH and does not appear to be responding to any. Insight, judgement and impulse control all appear compromised. ) Patient has bandage to R wrist from barbed wire cut in suicide attempt. Patient tox screen was postive for
--- NOTE | 2021-02-09 19:25 | P.PNPSI_ITS ---
Subjective Subjective Date of Service: 02/09/21 Reason For Visit: SI Diagnostics Vital Signs (24Hr): Vital Signs - 24 hr 02/08/21 22:52 02/09/21 02:12 02/09/21 02:41 Temperature 99.4 F 98.7 F Pulse Rate 89 76 76 Respiratory Rate 18 16 Blood Pressure 121/80 118/76 118/76 Pulse Oximetry 94 96 02/09/21 10:00 02/09/21 16:59 Temperature 98.5 F 97.5 F Pulse Rate 74 76 Respiratory Rate 16 Blood Pressure 137/68 111/69 Pulse Oximetry 96 98 Body Mass Index 26.6 Labs Results: 02/09/21 12:44 02/09/21 12:45 Labs: Laboratory Results - last 48 hr 02/08/21 02/09/21 02/09/21 23:39 01:56 12:44 WBC 7.6 RBC 4.84 Hgb 13.4 L Hct 40.8 L MCV 84.3 MCH 27.7 MCHC 32.8 RDW 14.1 Plt Count 162 MPV 9.4 Immature Gran % (Auto) 0.4 Neut % (Auto) 53.5 Lymph % (Auto) 29.0 [place] % (Auto) 14.4 H Eos % (Auto) 2.4 Baso % (Auto) 0.3 Lymph # (Auto) 2.2 [place] # (Auto) 1.1 Eos # (Auto) 0.2 Baso # (Auto) 0.0 Abs Immat Gran (auto) 0.03 Absolute Neuts (auto) 4.1 Absolute Nucleated RBC 0.000 Nucleated RBC % (auto) 0.0 Sodium Potassium Chloride Carbon Dioxide Anion Gap BUN Creatinine Estim Creat Clear Calc Estimated GFR Random Glucose Calcium Total Bilirubin AST ALT Alkaline Phosphatase Total Protein Albumin Urine Opiates Screen POSITIVE H Urine Fentanyl Screen POSITIVE H Ur Barbiturates Screen Not Detected Ur Phencyclidine Scrn Not Detected Ur Amphetamines Screen Not Detected U Benzodiazepines Scrn Not Detected Urine Cocaine Screen POSITIVE H U Marijuana (THC) Screen Not Detected COVID-19 (JANKI) Negative COVID-19 Clin Com See Note 02/09/21 12:45 WBC RBC Hgb Hct MCV MCH MCHC RDW Plt Count MPV Immature Gran % (Auto) Neut % (Auto) Lymph % (Auto) [place] % (Auto) Eos % (Auto) Baso % (Auto) Lymph # (Auto) [place] # (Auto) Eos # (Auto) Baso # (Auto) Abs Immat Gran (auto) Absolute Neuts (auto) Absolute Nucleated RBC Nucleated RBC % (auto) Sodium 141 Potassium 3.9 D Chloride 104 Carbon Dioxide 31 H Anion Gap 10 L BUN 14 Creatinine 0.87 Estim Creat Clear Calc 113.5 Estimated GFR > 60 Random Glucose 103 Calcium 9.4 Total Bilirubin 0.2 AST 110 H ALT 216 H Alkaline Phosphatase 131 H Total Protein 6.9 Albumin 3.9 Urine Opiates Screen Urine Fentanyl Screen Ur Barbiturates Screen Ur Phencyclidine Scrn Ur Amphetamines Screen U Benzodiazepines Scrn Urine Cocaine Screen U Marijuana (THC) Screen COVID-19 (JANKI) COVID-19 Clin Com Medications Medications Current Medications Acetaminophen (Acetaminophen 325 Mg Tablet) 650 mg PO Q6H PRN PRN Reason: Headache/Pain Mild Scale (1-3) Al Hydroxide/Mg Hydroxide (Magnesium Hydrox/Alum Hydrox 30 Ml Oral.Susp) 30 ml PO Q6H PRN PRN Reason: Heartburn/Nausea Aripiprazole (Aripiprazole 15 Mg Tablet) 15 mg PO DAILY [facility] Last Admin: 02/09/21 10:28 Dose: 15 mg Documented by: Atorvastatin Calcium (Atorvastatin Calcium 10 Mg Tablet) 10 mg PO BEDTIME [facility] Last Admin: 02/09/21 02:42 Dose: 10 mg Documented by: Baclofen (Baclofen 10 Mg Tablet) 10 mg PO BID [facility] Last Admin: 02/09/21 10:05 Dose: 10 mg Documented by: Bisacodyl (Bisacodyl 5 Mg Tablet.) 5 mg PO DAILY PRN PRN Reason: constipation Clonidine HCl (Clonidine Hcl 0.1 Mg Tablet) 0.1 mg PO BID PRN; Protocol PRN Reason: anxiety Divalproex Sodium (Divalproex Sodium Er 500 Mg Tab.Er.24h) 1,500 mg PO BEDTIME [facility] Last Admin: 02/09/21 02:41 Dose: 1,500 mg Documented by: Gabapentin (Gabapentin 600 Mg Tablet) 600 mg PO TID [facility] Last Admin: 02/09/21 15:48 Dose: 600 mg Documented by: Hydroxyzine HCl (Hydroxyzine Hcl 50 Mg Tablet) 50 mg PO TID [facility] Last Admin: 02/09/21 15:49 Dose: 50 mg Documented by: Hydroxyzine HCl (Hydroxyzine Hcl 50 Mg Tablet) 50 mg PO Q6H PRN PRN Reason: Anxiety Magnesium Hydroxide (Milk Of Magnesia 30 Ml Oral.Susp) 30 ml PO DAILY PRN PRN Reason: Constipation Methadone HCl (Methadone Hcl 20 Mg/2 Ml Oral.Conc) 140 mg PO DAILY [facility] Last Admin: 02/09/21 10:05 Dose: 140 mg Documented by: Naproxen (Naproxen 500 Mg Tablet) 500 mg PO BID PRN PRN Reason: pain Last Admin: 02/09/21 15:54 Dose: 500 mg Documented by: Nicotine Polacrilex (Nicotine Polacrilex 2 Mg Gum) 4 mg [place] Q2H PRN PRN Reason: Nicotine Cravings Last Admin: 02/09/21 13:08 Dose: 4 mg Documented by: Tamsulosin HCl (Tamsulosin Hcl 0.4 Mg Capsule) 0.4 mg PO BEDTIME [facility] Last Admin: 02/09/21 02:41 Dose: 0.4 mg Documented by: Trazodone HCl (Trazodone Hcl 100 Mg Tablet) 100 mg PO BEDTIME [facility] Trazodone HCl (Trazodone Hcl 50 Mg Tablet) 50 mg PO BEDTIME PRN PRN Reason: Insomnia Allergies Allergies Allergy/AdvReac Type Severity Reaction Status Date / Time shellfish derived Allergy Severe ANAPHAYLAXI Verified 08/04/20 22:58 [SHELLFISH DERIVED] A Assessment & Plan Greater than 50% of the session was spent on counseling and/or coordination of care
[2021-02-09] MEDS: Mirtazapine 7.5 MG TABLET PO (20:34)
[2021-02-09] MEDS: Prazosin HCL 1 MG CAPSULE 4 MG PO (20:35)
[2021-02-09] MEDS: traZODone HCL 100 MG TABLET PO (20:36)
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
[2021-02-10 06:00] VITALS: BP 129/75; PULSE 71; RESP 20; TEMP 36.5; O2SAT 99
[2021-02-10] MEDS: Nicotine Polacrilex 2 MG GUM 4 MG BUCCAL ×2 (07:17→10:06)
[2021-02-10 07:35] LABS: Valproate 78.1 mcg/mL (50.0-100.0)
[2021-02-10] MEDS: Gabapentin 600 MG TABLET PO ×3 (08:12→22:07)
[2021-02-10] MEDS: buPROPion HCl XL 300 MG TAB.ER.24H PO (08:12)
[2021-02-10] MEDS: ARIPiprazole 15 MG TABLET PO (08:12)
[2021-02-10] MEDS: Baclofen 10 MG TABLET PO ×2 (08:12→22:08)
[2021-02-10] MEDS: hydrOXYzine HCL 50 MG TABLET PO ×3 (08:12→22:08)
[2021-02-10] MEDS: methADONE HCl 20 MG/2 ML ORAL.CONC 140 MG PO (08:13)
--- NOTE | 2021-02-10 10:49 | P.PNPSI_ITS ---
Subjective Subjective Date of Service: 02/11/21 Reason For Visit: SI Interim History: Pt reports feeling depressed. he reports during 2 months he was at [facility] he was struggling with depressed mood. He continues to endorse depressed mood. He reports SI but denies any plan or intent to hurt himself. He reports he is not sure if he wants to return to [facility]. However, he notes that this is the longest period of sobriety in past year and half. Pt on multiple medications- he reports wellbutrin does help. he is not sure about other medications. Pt reports at times seeing shadows but not recently. He reports he is deemed to have bad luck, only bad things happen to me. However, he later ab le to identify positive things in his life like his daughters and mother. although he reports he is worried about his mother as she has significant health issues. 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: No c/o dizziness, headache GI: No c/o Nausea, Vomiting, diarrhea, constipation or heartburn Yes all other systems are reviewed and are negative Mental Status Exam Mental Status Exam Narrative: Appearance: casually groomed, fair hygiene in NAD Behavior:cooperative psychomotor:no agitation or retardation noted Speech:clear, normal rate/rhythm/volume, spontaneous Thought process:linear Thought content:no signs of psychosis, hopeless Mood: depressed Affect: blunted SI:passive HI:none VH/AH:none- some vague reports of seeing shadows but pt does not appear internally preoccupied. Delusions:none Insight/judgment:fair x 2. Memory/cog: alert, oriented x 3. grossly intact to conversational testing. Diagnostics Vital Signs (24Hr): Vital Signs - 24 hr 02/10/21 22:07 02/10/21 22:13 02/11/21 06:00 Temperature 98.0 F 98.1 F Pulse Rate 79 79 77 Respiratory Rate 16 Blood Pressure 118/60 118/60 115/64 Pulse Oximetry 95 97 Body Mass Index 26.6 Labs Results: 02/09/21 12:44 02/09/21 12:45 Labs: Laboratory Results - last 48 hr 02/09/21 02/09/21 02/10/21 12:44 12:45 07:04 WBC 7.6 RBC 4.84 Hgb 13.4 L Hct 40.8 L MCV 84.3 MCH 27.7 MCHC 32.8 RDW 14.1 Plt Count 162 MPV 9.4 Immature Gran % (Auto) 0.4 Neut % (Auto) 53.5 Lymph % (Auto) 29.0 [place] % (Auto) 14.4 H Eos % (Auto) 2.4 Baso % (Auto) 0.3 Lymph # (Auto) 2.2 [place] # (Auto) 1.1 Eos # (Auto) 0.2 Baso # (Auto) 0.0 Abs Immat Gran (auto) 0.03 Absolute Neuts (auto) 4.1 Absolute Nucleated RBC 0.000 Nucleated RBC % (auto) 0.0 Sodium 141 Potassium 3.9 D Chloride 104 Carbon Dioxide 31 H Anion Gap 10 L BUN 14 Creatinine 0.87 Estim Creat Clear Calc 113.5 Estimated GFR > 60 Random Glucose 103 Calcium 9.4 Total Bilirubin 0.2 AST 110 H ALT 216 H Alkaline Phosphatase 131 H Total Protein 6.9 Albumin 3.9 Valproic Acid 78.1 Medications Medications Current Medications Acetaminophen (Acetaminophen 325 Mg Tablet) 650 mg PO Q6H PRN PRN Reason: Headache/Pain Mild Scale (1-3) Al Hydroxide/Mg Hydroxide (Magnesium Hydrox/Alum Hydrox 30 Ml Oral.Susp) 30 ml PO Q6H PRN PRN Reason: Heartburn/Nausea Aripiprazole (Aripiprazole 15 Mg Tablet) 15 mg PO DAILY [facility] Last Admin: 02/11/21 08:47 Dose: 15 mg Documented by: Atorvastatin Calcium (Atorvastatin Calcium 10 Mg Tablet) 10 mg PO BEDTIME [facility] Last Admin: 02/10/21 22:08 Dose: 10 mg Documented by: Baclofen (Baclofen 10 Mg Tablet) 10 mg PO BID [facility] Last Admin: 02/11/21 08:48 Dose: 10 mg Documented by: Bisacodyl (Bisacodyl 5 Mg Tablet.Dr) 5 mg PO DAILY PRN PRN Reason: constipation Bupropion HCl (Bupropion Hcl Xl 300 Mg Tab.Er.24h) 300 mg PO DAILY [facility] Last Admin: 02/11/21 08:47 Dose: 300 mg Documented by: Clonidine HCl (Clonidine Hcl 0.1 Mg Tablet) 0.1 mg PO BID PRN; Protocol PRN Reason: anxiety Divalproex Sodium (Divalproex Sodium Er 500 Mg Tab.Er.24h) 1,500 mg PO BEDTIME [facility] Last Admin: 02/10/21 22:06 Dose: 1,500 mg Documented by: Gabapentin (Gabapentin 600 Mg Tablet) 600 mg PO TID [facility] Last Admin: 02/11/21 08:48 Dose: 600 mg Documented by: Hydroxyzine HCl (Hydroxyzine Hcl 50 Mg Tablet) 50 mg PO TID [facility] Last Admin: 02/11/21 08:48 Dose: 50 mg Documented by: Magnesium Hydroxide (Milk Of Magnesia 30 Ml Oral.Susp) 30 ml PO DAILY PRN PRN Reason: Constipation Methadone HCl (Methadone Hcl 20 Mg/2 Ml Oral.Conc) 140 mg PO DAILY [facility] Last Admin: 02/11/21 08:48 Dose: 140 mg Documented by: Mirtazapine (Mirtazapine 7.5 Mg Tablet) 7.5 mg PO BEDTIME [facility] Last Admin: 02/10/21 22:08 Dose: 7.5 mg Documented by: Naproxen (Naproxen 500 Mg Tablet) 500 mg PO BID PRN PRN Reason: pain Last Admin: 02/09/21 15:54 Dose: 500 mg Documented by: Nicotine Polacrilex (Nicotine Polacrilex 2 Mg Gum) 4 mg BUCCAL Q2H PRN PRN Reason: Nicotine Cravings Last Admin: 02/11/21 10:07 Dose: 4 mg Documented by: Prazosin HCl (Prazosin Hcl 1 Mg Capsule) 4 mg PO BEDTIME [facility]; Protocol Last Admin: 02/10/21 22:07 Dose: 4 mg Documented by: Tamsulosin HCl (Tamsulosin Hcl 0.4 Mg Capsule) 0.4 mg PO BEDTIME [facility] Last Admin: 02/10/21 22:08 Dose: 0.4 mg Documented by: Trazodone HCl (Trazodone Hcl 50 Mg Tablet) 50 mg PO BEDTIME PRN PRN Reason: insomnia Allergies Allergies Allergy/AdvReac Type Severity Reaction Status Date / Time shellfish derived Allergy Severe ANAPHAYLAXI Verified 08/04/20 22:58 [SHELLFISH DERIVED] A Assessment & Plan Assessment & Plan (1) MDD (major depressive disorder), recurrent episode, severe: Qualifiers: Psychotic features: without psychotic features Qualified Code(s): F33.2 - Major depressive disorder, recurrent severe without psychotic features Status: Chronic Code(s): F33.2 - Major depressive disorder, recurrent severe without psychotic features (2) PTSD (post-traumatic stress disorder): Status: Chronic Code(s): F43.10 - Post-traumatic stress disorder, unspecified (3) Opioid use disorder, mild, in early remission, on maintenance therapy: Status: Chronic Code(s): F11.11 - Opioid abuse, in remission Assessment and Plan: Guillermo is a 35-year-old male with history of depression, PTSD, chronic SI, s ubstance abuse, opiate dependent on methadone. He has multiple inpatient psych admissions for relapse, SI, depression, and mood dysregulation. He has chronic homelessness with minimal family support, financial stress. Hx of non-adherence with follow up outpatient appointments. PLAN- for now will continue current medications, but he is on multiple medications without clear benefit. 1. Continue MAT, on Methadone 140 mg 2. Restarted remeron 7.5 mg QHS for insomnia 3. Continue Gabapentin 600 mg TID for pain, anxiety, mood 4. Continue Depakote 1500 mg QHS for mood regulation, VPA level pending 5. Continue abilify 15 mg QAM for mood regulation 6. Continue vistaril 50 mg tid for anxiety 7. Increased bupropion to XL 300 mg QAM for sx of depression due to reported benefit, monitor for activating SE 8. COntinue Prazosin at 4 mg QHS for hyperarousal, PTSD 9. Continue Clonidine 0.1 mg BID PRN for withdrawal sx Monitor response to medications. Monitor for safety in the milieu. Discharge on stabilization. Patient seen. Chart reviewed. Discussed with team.? ?? Greater than 50% of the session was spent on counseling and/or coordination of care Reason for contiued inpatient stay Substantial Risk for: harm to self
--- NOTE | 2021-02-10 11:46 | MHC.CLN ---
NUTRITION PATIENT REPORTED MODERATE WEIGHT LOSS UPON ADMISSION. PATIENT WITH CHRONIC HOMELESSNESS AND REPORTS HX OF WEIGHT FLUCTUATION. PER CONVERSATION WITH PATIENT, THINKS THAT CURRENT WEIGHT IS ABOUT 230#(104.5 KG). WEIGHT RECORDED 79.4 KG 02/08. SUSPECT THAT 02/08 WEIGHT IS ERROR SINCE DOES NOT AGREE WITH REPORTED WEIGHT AND PATIENT APPEARS OBESE. REPORTED THAT ATE WELL AT BREAKFAST TODAY. REQUESTED ENSURE SINCE DOES NOT ALWAYS EAT WELL AT MEALS. RECOMMEND ENSURE 240 ML BID AT LUNCH AND SUPPER (700 KCAL, 40 G PROTEIN) PER PREFERENCE.
[2021-02-10] MEDS: Divalproex Sodium ER 500 MG TAB.ER.24H 1500 MG PO (22:06)
[2021-02-10 22:07] VITALS: BP 118/60; PULSE 79
[2021-02-10] MEDS: Prazosin HCL 1 MG CAPSULE 4 MG PO (22:07)
[2021-02-10] MEDS: Mirtazapine 7.5 MG TABLET PO (22:08)
[2021-02-10] MEDS: Tamsulosin HCL 0.4 MG CAPSULE PO (22:08)
[2021-02-10] MEDS: Atorvastatin Calcium 10 MG TABLET PO (22:08)
[2021-02-10 22:13] VITALS: BP 118/60; PULSE 79; TEMP 36.7; O2SAT 95
[2021-02-11] MEDS: Nicotine Polacrilex 2 MG GUM 4 MG BUCCAL ×5 (02:25→21:10)
[2021-02-11 06:00] VITALS: BP 115/64; PULSE 77; RESP 16; TEMP 36.7; O2SAT 97
[2021-02-11] MEDS: ARIPiprazole 15 MG TABLET PO (08:47)
[2021-02-11] MEDS: buPROPion HCl XL 300 MG TAB.ER.24H PO (08:47)
[2021-02-11] MEDS: methADONE HCl 20 MG/2 ML ORAL.CONC 140 MG PO (08:48)
[2021-02-11] MEDS: Baclofen 10 MG TABLET PO (08:48)
[2021-02-11] MEDS: hydrOXYzine HCL 50 MG TABLET PO ×3 (08:48→21:02)
[2021-02-11] MEDS: Gabapentin 600 MG TABLET PO ×3 (08:48→21:02)
--- NOTE | 2021-02-11 18:51 | P.PNPSI_ITS ---
Subjective Subjective Date of Service: 02/11/21 Reason For Visit: SI Interim History: Guillermo reports SI [employer]. He had been with [facility] for approximately one month. Today he is concerned about medications, dosages and anxiety mgt. Reports depression 01/13. Medication Compliance: Yes Side effects from medications: No Attending Groups: Yes Review of Systems Acute medical concerns: No Medical Review of Systems: unchanged Review of Systems Psychiatric: Reports anxiety, Reports depression, Reports difficulty concentrating, Reports hopelessness and Reports suicidal ideation Mental Status Exam Mental Status Exam Patient Appearance: Appropriate Patient Orientation: Person, Place, Time and Situation Patient Behavior: Talkative Mood Description: Withdrawn, Depressed and Anxious Affect Description: Flat Patient Cognition Impaired: No Ability to Follow Directions: Good Speech Pattern: Spontaneous Speech Memory Description: Intact Hallucinations: None Delusions: Not Present Perceptual Disturbances: Depersonalization Thought Process: Rumination Thought Content: positive for [place] and positive for Circumstantial Depressive Symptoms: Increased Anxiety Judgement: Fair Diagnostics Vital Signs (24Hr): Vital Signs - 24 hr 02/10/21 22:07 02/10/21 22:13 02/11/21 06:00 Temperature 98.0 F 98.1 F Pulse Rate 79 79 77 Respiratory Rate 16 Blood Pressure 118/60 118/60 115/64 Pulse Oximetry 95 97 Body Mass Index 26.6 Labs Results: 02/09/21 12:44 02/09/21 12:45 Labs: Laboratory Results - last 48 hr 02/10/21 07:04 Valproic Acid 78.1 Medications Medications Current Medications Acetaminophen (Acetaminophen 325 Mg Tablet) 650 mg PO Q6H PRN PRN Reason: Headache/Pain Mild Scale (1-3) Al Hydroxide/Mg Hydroxide (Magnesium Hydrox/Alum Hydrox 30 Ml Oral.Susp) 30 ml PO Q6H PRN PRN Reason: Heartburn/Nausea Aripiprazole (Aripiprazole 15 Mg Tablet) 15 mg PO DAILY COUNT [facility]CLUDES [facility] Last Admin: 02/11/21 08:47 Dose: 15 mg Documented by: Atorvastatin Calcium (Atorvastatin Calcium 10 Mg Tablet) 10 mg PO BEDTIME [facility] Last Admin: 02/10/21 22:08 Dose: 10 mg Documented by: Baclofen (Baclofen 10 Mg Tablet) 10 mg PO BID COUNT INCLUDES [facility] Last Admin: 02/11/21 08:48 Dose: 10 mg Documented by: Bisacodyl (Bisacodyl 5 Mg Tablet.) 5 mg PO DAILY PRN PRN Reason: constipation Bupropion HCl (Bupropion Hcl Xl 300 Mg Tab.Er.24h) 300 mg PO DAILY [facility]CLUD[facility] Last Admin: 02/11/21 08:47 Dose: 300 mg Documented by: Clonidine HCl (Clonidine Hcl 0.1 Mg Tablet) 0.1 mg PO BID PRN; Protocol PRN Reason: anxiety Divalproex Sodium (Divalproex Sodium Er 500 Mg Tab.Er.24h) 1,500 mg PO BEDTIME COUNT [facility]CLUDES [facility] Last Admin: 02/10/21 22:06 Dose: 1,500 mg Documented by: Gabapentin (Gabapentin 600 Mg Tablet) 600 mg PO TID COUNT INCLUDES [facility] Last Admin: 02/11/21 14:46 Dose: 600 mg Documented by: Hydroxyzine HCl (Hydroxyzine Hcl 50 Mg Tablet) 50 mg PO TID COUNT [facility]CLUDES [facility] Last Admin: 02/11/21 14:46 Dose: 50 mg Documented by: Magnesium Hydroxide (Milk Of Magnesia 30 Ml Oral.Susp) 30 ml PO DAILY PRN PRN Reason: Constipation Methadone HCl (Methadone Hcl 20 Mg/2 Ml Oral.Conc) 140 mg PO DAILY COUNT [facility]CLUDES [facility] Last Admin: 02/11/21 08:48 Dose: 140 mg Documented by: Mirtazapine (Mirtazapine 7.5 Mg Tablet) 7.5 mg PO BEDTIME COUNT [facility]CLUDES [facility] Last Admin: 02/10/21 22:08 Dose: 7.5 mg Documented by: Naproxen (Naproxen 500 Mg Tablet) 500 mg PO BID PRN PRN Reason: pain Last Admin: 02/09/21 15:54 Dose: 500 mg Documented by: Nicotine Polacrilex (Nicotine Polacrilex 2 Mg Gum) 4 mg BUCCAL Q2H PRN PRN Reason: Nicotine Cravings Last Admin: 02/11/21 18:06 Dose: 4 mg Documented by: Prazosin HCl (Prazosin Hcl 1 Mg Capsule) 4 mg PO BEDTIME COUNT [facility]CLUD[facility]; Protocol Last Admin: 02/10/21 22:07 Dose: 4 mg Documented by: Tamsulosin HCl (Tamsulosin Hcl 0.4 Mg Capsule) 0.4 mg PO BEDTIME COUNT [facility]CLUDES [facility] Last Admin: 02/10/21 22:08 Dose: 0.4 mg Documented by: Trazodone HCl (Trazodone Hcl 50 Mg Tablet) 50 mg PO BEDTIME PRN PRN Reason: insomnia Allergies Allergies Allergy/AdvReac Type Severity Reaction Status Date / Time shellfish derived Allergy Severe ANAPHAYLAXI Verified 08/04/20 22:58 [SHELLFISH DERIVED] A Assessment & Plan Assessment & Plan (1) MDD (major depressive disorder), recurrent episode, severe: Qualifiers: Psychotic features: without psychotic features Qualified Code(s): F33.2 - Major depressive disorder, recurrent severe without psychotic features Status: Chronic Code(s): F33.2 - Major depressive disorder, recurrent severe without psychotic features (2) PTSD (post-traumatic stress disorder): Status: Chronic Code(s): F43.10 - Post-traumatic stress disorder, unspecified (3) Opioid use disorder, mild, in early remission, on maintenance therapy: Status: Chronic Code(s): F11.11 - Opioid abuse, in remission Assessment and Plan: Guillermo is a 35-year-old male with history of depression, PTSD, chronic SI, substance abuse, opiate dependent on methadone. He has multiple inpatient psych admissions for relapse, SI, depression, and mood dysregulation. He has chronic homelessness with minimal family support, financial stress. Hx of non-adherence with follow up outpatient appointments. PLAN- for now will continue current medications, but he is on multiple medications without clear benefit. 1. Continue MAT, on Methadone 140 mg 2. Restarted remeron 7.5 mg QHS for insomnia 3. Continue Gabapentin 600 mg TID for pain, anxiety, mood 4. Continue Depakote 1500 mg QHS for mood regulation, VPA level pending 5. Continue abilify 15 mg QAM for mood regulation 6. Continue vistaril 50 mg tid for anxiety 7. Increased bupropion to XL 300 mg QAM for sx of depression due to reported benefit, monitor for activating SE 8. COntinue Prazosin at 4 mg QHS for hyperarousal, PTSD 9. Continue Clonidine 0.1 mg BID PRN for withdrawal sx Monitor response to medications. Monitor for safety in the milieu. Discharge on stabilization. Patient seen. Chart reviewed. Discussed with team.? ?? 02/11/21: Continue current plan of care. Pt asks for anxiety meds, however, regime is well supplied with several agents. Will focus on behavioral/coping interventions. Greater than 50% of the session was spent on counseling and/or coordination of care Patient educated on: medication risk/benefits Informed Consent: understands Reason for contiued inpatient stay Substantial Risk for: harm to self, inability to function and rapid decompensation
[2021-02-11 20:53] VITALS: BP 117/73; PULSE 82; RESP 16; TEMP 36.2; O2SAT 96
[2021-02-11 21:02] VITALS: BP 117/73; PULSE 82
[2021-02-11] MEDS: Prazosin HCL 1 MG CAPSULE 4 MG PO (21:02)
[2021-02-11] MEDS: Atorvastatin Calcium 10 MG TABLET PO (21:02)
[2021-02-11] MEDS: Mirtazapine 7.5 MG TABLET PO (21:02)
[2021-02-11] MEDS: Tamsulosin HCL 0.4 MG CAPSULE PO (21:02)
[2021-02-11] MEDS: Divalproex Sodium ER 500 MG TAB.ER.24H 1500 MG PO (21:02)
[2021-02-12 00:04] VITALS: BP 108/70; PULSE 77
[2021-02-12] MEDS: cloNIDine HCL 0.1 MG TABLET PO (00:04)
[2021-02-12] MEDS: traZODone HCL 50 MG TABLET PO (00:05)
[2021-02-12] MEDS: Nicotine Polacrilex 2 MG GUM 4 MG BUCCAL ×5 (00:07→21:38)
[2021-02-12 08:10] VITALS: BP 129/68; PULSE 85; RESP 18; TEMP 36.6; O2SAT 96
[2021-02-12] MEDS: Gabapentin 600 MG TABLET PO ×3 (08:37→21:28)
[2021-02-12] MEDS: hydrOXYzine HCL 50 MG TABLET PO ×3 (08:37→21:29)
[2021-02-12] MEDS: buPROPion HCl XL 300 MG TAB.ER.24H PO (08:37)
[2021-02-12] MEDS: methADONE HCl 20 MG/2 ML ORAL.CONC 140 MG PO (08:38)
[2021-02-12] MEDS: Baclofen 10 MG TABLET PO ×3 (08:38→21:27)
[2021-02-12] MEDS: ARIPiprazole 15 MG TABLET PO (08:38)
[2021-02-12] MEDS: Docusate Sodium 100 MG CAPSULE PO ×2 (10:01→21:28)
--- NOTE | 2021-02-12 10:41 | P.PNPSI_ITS ---
Subjective Subjective Date of Service: 02/12/21 Reason For Visit: SI Interim History: Reports an increase in depressive sx, nightmares and SI. Responding to milieu support and peer interaction. Denies med SE or concerns about medication regime. Medication Compliance: Yes Attending Groups: Yes Review of Systems Acute medical concerns: No Medical Review of Systems: unchanged Review of Systems Psychiatric: Reports anxiety, Reports depression, Reports difficulty concentrating, Reports hopelessness and Reports suicidal ideation Mental Status Exam Mental Status Exam Patient Appearance: Appropriate Patient Orientation: Person, Place, Time and Situation Patient Behavior: Talkative Mood Description: Withdrawn, Depressed and Anxious Affect Description: Flat Patient Cognition Impaired: No Ability to Follow Directions: Good Speech Pattern: Spontaneous Speech Memory Description: Intact Hallucinations: None Delusions: Not Present Perceptual Disturbances: Depersonalization Thought Process: Rumination Thought Content: positive for [place], positive for Circumstantial and positive for Suicidal Ideation Depressive Symptoms: Increased Anxiety and Thoughts of /Suicide Judgement: Fair Diagnostics Vital Signs (24Hr): Vital Signs - 24 hr 02/11/21 20:53 02/11/21 21:02 02/12/21 00:04 Temperature 97.1 F Pulse Rate 82 82 77 Respiratory Rate 16 Blood Pressure 117/73 117/73 108/70 Pulse Oximetry 96 02/12/21 08:10 Temperature 97.9 F Pulse Rate 85 Respiratory Rate 18 Blood Pressure 129/68 Pulse Oximetry 96 Body Mass Index 26.6 Labs Results: 02/09/21 12:44 02/09/21 12:45 Medications Medications Current Medications Acetaminophen (Acetaminophen 325 Mg Tablet) 650 mg PO Q6H PRN PRN Reason: Headache/Pain Mild Scale (1-3) Al Hydroxide/Mg Hydroxide (Magnesium Hydrox/Alum Hydrox 30 Ml Oral.Susp) 30 ml PO Q6H PRN PRN Reason: Heartburn/Nausea Aripiprazole (Aripiprazole 15 Mg Tablet) 15 mg PO DAILY [facility] Last Admin: 02/12/21 08:38 Dose: 15 mg Documented by: Atorvastatin Calcium (Atorvastatin Calcium 10 Mg Tablet) 10 mg PO BEDTIME [facility] Last Admin: 02/11/21 21:02 Dose: 10 mg Documented by: Baclofen (Baclofen 10 Mg Tablet) 10 mg PO TID [facility] Last Admin: 02/12/21 08:38 Dose: 10 mg Documented by: Bisacodyl (Bisacodyl 5 Mg Tablet.) 5 mg PO DAILY PRN PRN Reason: constipation Bupropion HCl (Bupropion Hcl Xl 300 Mg Tab.Er.24h) 300 mg PO DAILY [facility] Last Admin: 02/12/21 08:37 Dose: 300 mg Documented by: Clonidine HCl (Clonidine Hcl 0.1 Mg Tablet) 0.1 mg PO BID PRN; Protocol PRN Reason: anxiety Last Admin: 02/12/21 00:04 Dose: 0.1 mg Documented by: Divalproex Sodium (Divalproex Sodium Er 500 Mg Tab.Er.24h) 1,500 mg PO BEDTIME [facility] Last Admin: 02/11/21 21:02 Dose: 1,500 mg Documented by: Docusate Sodium (Docusate Sodium 100 Mg Capsule) 100 mg PO BID [facility] Last Admin: 02/12/21 10:01 Dose: 100 mg Documented by: Gabapentin (Gabapentin 600 Mg Tablet) 600 mg PO TID [facility] Last Admin: 02/12/21 08:37 Dose: 600 mg Documented by: Hydroxyzine HCl (Hydroxyzine Hcl 50 Mg Tablet) 50 mg PO TID [facility] Last Admin: 02/12/21 08:37 Dose: 50 mg Documented by: Magnesium Hydroxide (Milk Of Magnesia 30 Ml Oral.Susp) 30 ml PO DAILY PRN PRN Reason: Constipation Methadone HCl (Methadone Hcl 20 Mg/2 Ml Oral.Conc) 140 mg PO DAILY [facility] Last Admin: 02/12/21 08:38 Dose: 140 mg Documented by: Mirtazapine (Mirtazapine 7.5 Mg Tablet) 7.5 mg PO BEDTIME [facility] Last Admin: 02/11/21 21:02 Dose: 7.5 mg Documented by: Naproxen (Naproxen 500 Mg Tablet) 500 mg PO BID PRN PRN Reason: pain Last Admin: 02/09/21 15:54 Dose: 500 mg Documented by: Nicotine Polacrilex (Nicotine Polacrilex 2 Mg Gum) 4 mg BUCCAL Q2H PRN PRN Reason: Nicotine Cravings Last Admin: 02/12/21 10:01 Dose: 4 mg Documented by: Prazosin HCl (Prazosin Hcl 1 Mg Capsule) 4 mg PO BEDTIME [facility]; Protocol Last Admin: 02/11/21 21:02 Dose: 4 mg Documented by: Tamsulosin HCl (Tamsulosin Hcl 0.4 Mg Capsule) 0.4 mg PO BEDTIME [facility] Last Admin: 02/11/21 21:02 Dose: 0.4 mg Documented by: Trazodone HCl (Trazodone Hcl 50 Mg Tablet) 50 mg PO BEDTIME PRN PRN Reason: insomnia Last Admin: 02/12/21 00:05 Dose: 50 mg Documented by: Allergies Allergies Allergy/AdvReac Type Severity Reaction Status Date / Time shellfish derived Allergy Severe ANAPHAYLAXI Verified 08/04/20 22:58 [SHELLFISH DERIVED] A Assessment & Plan Assessment & Plan (1) MDD (major depressive disorder), recurrent episode, severe: Qualifiers: Psychotic features: without psychotic features Qualified Code(s): F33.2 - Major depressive disorder, recurrent severe without psychotic features Status: Chronic Code(s): F33.2 - Major depressive disorder, recurrent severe without psychotic features (2) PTSD (post-traumatic stress disorder): Status: Chronic Code(s): F43.10 - Post-traumatic stress disorder, unspecified (3) Opioid use disorder, mild, in early remission, on maintenance therapy: Status: Chronic Code(s): F11.11 - Opioid abuse, in remission Assessment and Plan: Guillermo is a 35-year-old male with history of depression, PTSD, chronic SI, substance abuse, opiate dependent on methadone. He has multiple inpatient psych admissions for relapse, SI, depression, and mood dysregulation. He has chronic homelessness with minimal family support, financial stress. Hx of non-adherence with follow up outpatient appointments. PLAN- for now will continue current medications, but he is on multiple medications without clear benefit. 1. Continue MAT, on Methadone 140 mg 2. Restarted remeron 7.5 mg QHS for insomnia 3. Continue Gabapentin 600 mg TID for pain, anxiety, mood 4. Continue Depakote 1500 mg QHS for mood regulation, VPA level pending 5. Continue abilify 15 mg QAM for mood regulation 6. Continue vistaril 50 mg tid for anxiety 7. Increased bupropion to XL 300 mg QAM for sx of depression due to reported benefit, monitor for activating SE 8. COntinue Prazosin at 4 mg QHS for hyperarousal, PTSD 9. Continue Clonidine 0.1 mg BID PRN for withdrawal sx Monitor response to medications. Monitor for safety in the milieu. Discharge on stabilization. Patient seen. Chart reviewed. Discussed with team.? ?? 10/9/21: Continue current plan of care. Pt asks for anxiety meds, however, regime is well supplied with several agents. Will focus on behavioral/coping interventions. 02/12/21: Coverage: Continue current plan of care. Greater than 50% of the session was spent on counseling and/or coordination of care Patient educated on: therapeutic strategies Informed Consent: understands and further education needed Reason for contiued inpatient stay Substantial Risk for: harm to self, harm to others, inability to function and rapid decompensation
[2021-02-12 18:00] VITALS: BP 111/68; PULSE 76; RESP 18; TEMP 36.2; O2SAT 95
[2021-02-12] MEDS: Atorvastatin Calcium 10 MG TABLET PO (21:27)
[2021-02-12] MEDS: Divalproex Sodium ER 500 MG TAB.ER.24H 1500 MG PO (21:28)
[2021-02-12 21:29] VITALS: BP 111/68; PULSE 76
[2021-02-12] MEDS: Mirtazapine 7.5 MG TABLET PO (21:29)
[2021-02-12] MEDS: Prazosin HCL 1 MG CAPSULE 4 MG PO (21:29)
[2021-02-12] MEDS: Tamsulosin HCL 0.4 MG CAPSULE PO (21:30)
[2021-02-13] MEDS: Nicotine Polacrilex 2 MG GUM 4 MG BUCCAL ×6 (02:01→19:51)
[2021-02-13 02:02] VITALS: BP 117/70; PULSE 73
[2021-02-13] MEDS: cloNIDine HCL 0.1 MG TABLET PO (02:02)
[2021-02-13] MEDS: traZODone HCL 50 MG TABLET PO (02:02)
[2021-02-13 08:17] VITALS: BP 109/63; PULSE 78; RESP 17; TEMP 36.9; O2SAT 98
[2021-02-13] MEDS: methADONE HCl 20 MG/2 ML ORAL.CONC 140 MG PO (08:24)
[2021-02-13] MEDS: buPROPion HCl XL 300 MG TAB.ER.24H PO (08:29)
[2021-02-13] MEDS: Baclofen 10 MG TABLET PO ×3 (08:29→20:41)
[2021-02-13] MEDS: hydrOXYzine HCL 50 MG TABLET PO ×3 (08:29→20:41)
[2021-02-13] MEDS: ARIPiprazole 15 MG TABLET PO (08:29)
[2021-02-13] MEDS: Gabapentin 600 MG TABLET PO ×3 (08:29→20:41)
[2021-02-13] MEDS: Docusate Sodium 100 MG CAPSULE PO ×2 (08:29→20:42)
[2021-02-13] MEDS: Lidocaine 4 % Patch ADH..PATCH 1 PATCH TRANSDERMA (16:02)
--- NOTE | 2021-02-13 16:20 | P.PNPSI_ITS ---
Subjective Subjective Date of Service: 02/13/21 Reason For Visit: SI Interim History: Team reports pt to be isolative and depressed. Pt concurs, describing nightmares, poor sleep, depression and indecisiveness. Has [employer] appt 02/20 and has an offer to return to his former work situation. Discussed with pt and he will consider both. Medication review. Discussed Wellbutrin titration for assistance with depressive sx. Medication Compliance: Yes Side effects from medications: No Attending Groups: Yes Review of Systems Acute medical concerns: No Medical Review of Systems: unchanged Review of Systems Gastrointestinal: Reports constipation (resolved per pt report) Psychiatric: Reports anxiety, Reports depression, Reports difficulty concentrating, Reports hopelessness and Reports suicidal ideation Mental Status Exam Mental Status Exam Patient Appearance: Appropriate Patient Orientation: Person, Place, Time and Situation Patient Behavior: Talkative Mood Description: Withdrawn, Depressed and Anxious Affect Description: Flat Patient Cognition Impaired: No Ability to Follow Directions: Good Speech Pattern: Spontaneous Speech Memory Description: Intact Hallucinations: None Delusions: Not Present Perceptual Disturbances: Depersonalization Thought Process: Rumination Thought Content: positive for [place], positive for Circumstantial and positive for Suicidal Ideation Depressive Symptoms: Increased Anxiety and Thoughts of /Suicide Judgement: Fair Diagnostics Vital Signs (24Hr): Vital Signs - 24 hr 02/12/21 18:00 02/12/21 21:29 02/13/21 02:02 Temperature 97.2 F Pulse Rate 76 76 73 Respiratory Rate 18 Blood Pressure 111/68 111/68 117/70 Pulse Oximetry 95 02/13/21 08:17 Temperature 98.4 F Pulse Rate 78 Respiratory Rate 17 Blood Pressure 109/63 Pulse Oximetry 98 Body Mass Index 26.6 Labs Results: 02/09/21 12:44 02/09/21 12:45 Medications Medications Current Medications Acetaminophen (Acetaminophen 325 Mg Tablet) 650 mg PO Q6H PRN PRN Reason: Headache/Pain Mild Scale (1-3) Al Hydroxide/Mg Hydroxide (Magnesium Hydrox/Alum Hydrox 30 Ml Oral.Susp) 30 ml PO Q6H PRN PRN Reason: Heartburn/Nausea Aripiprazole (Aripiprazole 15 Mg Tablet) 15 mg PO DAILY [facility] Last Admin: 02/13/21 08:29 Dose: 15 mg Documented by: Atorvastatin Calcium (Atorvastatin Calcium 10 Mg Tablet) 10 mg PO BEDTIME [facility] Last Admin: 02/12/21 21:27 Dose: 10 mg Documented by: Baclofen (Baclofen 10 Mg Tablet) 10 mg PO TID [facility] Last Admin: 02/13/21 16:04 Dose: 10 mg Documented by: Bisacodyl (Bisacodyl 5 Mg Tablet.Dr) 5 mg PO DAILY PRN PRN Reason: constipation Bupropion HCl (Bupropion Hcl Xl 150 Mg Tab.Er.24h) 450 mg PO DAILY [facility] Clonidine HCl (Clonidine Hcl 0.1 Mg Tablet) 0.1 mg PO BID PRN; Protocol PRN Reason: anxiety Last Admin: 02/13/21 02:02 Dose: 0.1 mg Documented by: Divalproex Sodium (Divalproex Sodium Er 500 Mg Tab.Er.24h) 1,500 mg PO BEDTIME [facility] Last Admin: 02/12/21 21:28 Dose: 1,500 mg Documented by: Docusate Sodium (Docusate Sodium 100 Mg Capsule) 100 mg PO BID [facility] Last Admin: 02/13/21 08:29 Dose: 100 mg Documented by: Gabapentin (Gabapentin 600 Mg Tablet) 600 mg PO TID [facility] Last Admin: 02/13/21 16:03 Dose: 600 mg Documented by: Hydroxyzine HCl (Hydroxyzine Hcl 50 Mg Tablet) 50 mg PO TID [facility] Last Admin: 02/13/21 16:04 Dose: 50 mg Documented by: Lidocaine (Lidocaine 4 % Patch Adh..Patch) 1 patch TRANSDERMA DAILY [facility]; Protocol Last Admin: 02/13/21 16:02 Dose: 1 patch Documented by: Magnesium Hydroxide (Milk Of Magnesia 30 Ml Oral.Susp) 30 ml PO DAILY PRN PRN Reason: Constipation Methadone HCl (Methadone Hcl 20 Mg/2 Ml Oral.Conc) 140 mg PO DAILY [facility] Last Admin: 02/13/21 08:24 Dose: 140 mg Documented by: Mirtazapine (Mirtazapine 7.5 Mg Tablet) 7.5 mg PO BEDTIME [facility] Last Admin: 02/12/21 21:29 Dose: 7.5 mg Documented by: Naproxen (Naproxen 500 Mg Tablet) 500 mg PO BID PRN PRN Reason: pain Last Admin: 02/09/21 15:54 Dose: 500 mg Documented by: Nicotine Polacrilex (Nicotine Polacrilex 2 Mg Gum) 4 mg BUCCAL Q2H PRN PRN Reason: Nicotine Cravings Last Admin: 02/13/21 15:52 Dose: 4 mg Documented by: Prazosin HCl (Prazosin Hcl 1 Mg Capsule) 4 mg PO BEDTIME [facility]; Protocol Last Admin: 02/12/21 21:29 Dose: 4 mg Documented by: Tamsulosin HCl (Tamsulosin Hcl 0.4 Mg Capsule) 0.4 mg PO BEDTIME [facility] Last Admin: 02/12/21 21:30 Dose: 0.4 mg Documented by: Trazodone HCl (Trazodone Hcl 50 Mg Tablet) 50 mg PO BEDTIME PRN PRN Reason: insomnia Last Admin: 02/13/21 02:02 Dose: 50 mg Documented by: Allergies Allergies Allergy/AdvReac Type Severity Reaction Status Date / Time shellfish derived Allergy Severe ANAPHAYLAXI Verified 08/04/20 22:58 [SHELLFISH DERIVED] A Assessment & Plan Assessment & Plan (1) MDD (major depressive disorder), recurrent episode, severe: Qualifiers: Psychotic features: without psychotic features Qualified Code(s): F33.2 - Major depressive disorder, recurrent severe without psychotic features Status: Chronic Code(s): F33.2 - Major depressive disorder, recurrent severe without psychotic features (2) PTSD (post-traumatic stress disorder): Status: Chronic Code(s): F43.10 - Post-traumatic stress disorder, unspecified (3) Opioid use disorder, mild, in early remission, on maintenance therapy: Status: Chronic Code(s): F11.11 - Opioid abuse, in remission Assessment and Plan: Guillermo is a 35-year-old male with history of depression, PTSD, chronic SI, substance abuse, opiate dependent on methadone. He has multiple inpatient psych admissions for relapse, SI, depression, and mood dysregulation. He has chronic homelessness with minimal family support, financial stress. Hx of non-adherence with follow up outpatient appointments. PLAN- for now will continue current medications, but he is on multiple medications without clear benefit. 1. Continue MAT, on Methadone 140 mg 2. Restarted remeron 7.5 mg QHS for insomnia 3. Continue Gabapentin 600 mg TID for pain, anxiety, mood 4. Continue Depakote 1500 mg QHS for mood regulation, VPA level pending 5. Continue abilify 15 mg QAM for mood regulation 6. Continue vistaril 50 mg tid for anxiety 7. Increased bupropion to XL 300 mg QAM for sx of depression due to reported benefit, monitor for activating SE 8. COntinue Prazosin at 4 mg QHS for hyperarousal, PTSD 9. Continue Clonidine 0.1 mg BID PRN for withdrawal sx Monitor response to medications. Monitor for safety in the milieu. Discharge on stabilization. Patient seen. Chart reviewed. Discussed with team.? ?? 02/11/21: Continue current plan of care. Pt asks for anxiety meds, however, regime is well supplied with several agents. Will focus on behavioral/coping interventions. 02/12/21: Coverage: Continue current plan of care. 02/13/21: Increase Wellbutrin XL to 450 mg daily. Monitor for side effects of anxiety and agitaiton. Greater than 50% of the session was spent on counseling and/or coordination of care Patient educated on: medication risk/benefits and therapeutic strategies Informed Consent: understands and further education needed Reason for contiued inpatient stay Substantial Risk for: harm to self, inability to function and rapid decompensation
[2021-02-13] MEDS: Atorvastatin Calcium 10 MG TABLET PO (20:41)
[2021-02-13] MEDS: Tamsulosin HCL 0.4 MG CAPSULE PO (20:41)
[2021-02-13] MEDS: Mirtazapine 7.5 MG TABLET PO (20:41)
[2021-02-13 20:42] VITALS: BP 128/69; PULSE 76
[2021-02-13] MEDS: Prazosin HCL 1 MG CAPSULE 4 MG PO (20:42)
[2021-02-13] MEDS: Divalproex Sodium ER 500 MG TAB.ER.24H 1500 MG PO (20:42)
[2021-02-13 20:45] VITALS: TEMP 36.7; O2SAT 96
[2021-02-14 02:34] VITALS: BP 126/66; PULSE 78
[2021-02-14] MEDS: cloNIDine HCL 0.1 MG TABLET PO (02:34)
[2021-02-14] MEDS: traZODone HCL 50 MG TABLET PO (02:34)
[2021-02-14] MEDS: Nicotine Polacrilex 2 MG GUM 4 MG BUCCAL ×4 (02:41→14:52)
[2021-02-14 06:00] VITALS: BP 133/91; PULSE 82; RESP 18; TEMP 36.6; O2SAT 98
[2021-02-14] MEDS: methADONE HCl 20 MG/2 ML ORAL.CONC 140 MG PO (08:47)
[2021-02-14] MEDS: Baclofen 10 MG TABLET PO ×3 (08:47→21:36)
[2021-02-14] MEDS: buPROPion HCl XL 150 MG TAB.ER.24H 450 MG PO (08:47)
[2021-02-14] MEDS: Docusate Sodium 100 MG CAPSULE PO ×2 (08:47→21:50)
[2021-02-14] MEDS: ARIPiprazole 15 MG TABLET PO (08:47)
[2021-02-14] MEDS: Lidocaine 4 % Patch ADH..PATCH 1 PATCH TRANSDERMA (08:47)
[2021-02-14] MEDS: Gabapentin 600 MG TABLET PO ×3 (08:47→21:36)
[2021-02-14] MEDS: hydrOXYzine HCL 50 MG TABLET PO ×3 (09:24→21:36)
--- NOTE | 2021-02-14 15:11 | HO.PSYCHPN ---
Subjective Subjective Date of Service: 02/14/21 Reason For Visit: SI Interim History: pt reports he is doing better than at admission but he continues to suffer from depressed mood, insomnia, and nightmares. it is noted he is taking prazosin 4 mg at bedtime for that; he is educated that the average dosing needed to combat nightmares and insomnia in PTSD is 8-10 mg nightly. his VS are reviewed and he is mildly hypertensive at last measurement, but he in general should be able to tolerate a dose increase. he agrees to increase dosing to 5 mg tonight. in addition, his remeron is increased to 15 mg at bedtime (he reports he used to be on 30 mg at bedtime). 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 Mental Status Exam Mental Status Exam Narrative: Appearance: casually groomed, fair hygiene in NAD Behavior:cooperative psychomotor:no agitation or retardation noted Speech:clear, normal rate/rhythm/volume, spontaneous Thought process:linear Thought content:no signs of psychosis Mood: depressed Affect: blunted SI:passive HI:none VH/AH:none expressed Delusions:none Insight/judgment:fair x 2. Memory/cog: alert, oriented x 3. grossly intact to conversational testing. Diagnostics Vital Signs (24Hr): Vital Signs - 24 hr 02/13/21 20:42 02/13/21 20:45 02/14/21 02:34 Temperature 98.1 F Pulse Rate 76 78 Respiratory Rate Blood Pressure 128/69 126/66 Pulse Oximetry 96 02/14/21 06:00 Temperature 97.8 F Pulse Rate 82 Respiratory Rate 18 Blood Pressure 133/91 H Pulse Oximetry 98 Body Mass Index 26.6 Labs Results: 02/09/21 12:44 02/09/21 12:45 Medications Medications Current Medications Acetaminophen (Acetaminophen 325 Mg Tablet) 650 mg PO Q6H PRN PRN Reason: Headache/Pain Mild Scale (1-3) Al Hydroxide/Mg Hydroxide (Magnesium Hydrox/Alum Hydrox 30 Ml Oral.Susp) 30 ml PO Q6H PRN PRN Reason: Heartburn/Nausea Aripiprazole (Aripiprazole 15 Mg Tablet) 15 mg PO DAILY [facility] Last Admin: 02/14/21 08:47 Dose: 15 mg Documented by: Atorvastatin Calcium (Atorvastatin Calcium 10 Mg Tablet) 10 mg PO BEDTIME [facility] Last Admin: 02/13/21 20:41 Dose: 10 mg Documented by: Baclofen (Baclofen 10 Mg Tablet) 10 mg PO TID [facility] Last Admin: 02/14/21 14:52 Dose: 10 mg Documented by: Bisacodyl (Bisacodyl 5 Mg Tablet.Dr) 5 mg PO DAILY PRN PRN Reason: constipation Bupropion HCl (Bupropion Hcl Xl 150 Mg Tab.Er.24h) 450 mg PO DAILY [facility] Last Admin: 02/14/21 08:47 Dose: 450 mg Documented by: Clonidine HCl (Clonidine Hcl 0.1 Mg Tablet) 0.1 mg PO BID PRN; Protocol PRN Reason: anxiety Last Admin: 02/14/21 02:34 Dose: 0.1 mg Documented by: Divalproex Sodium (Divalproex Sodium Er 500 Mg Tab.Er.24h) 1,500 mg PO BEDTIME [facility] Last Admin: 02/13/21 20:42 Dose: 1,500 mg Documented by: Docusate Sodium (Docusate Sodium 100 Mg Capsule) 100 mg PO BID [facility] Last Admin: 02/14/21 08:47 Dose: 100 mg Documented by: Gabapentin (Gabapentin 600 Mg Tablet) 600 mg PO TID [facility] Last Admin: 02/14/21 14:52 Dose: 600 mg Documented by: Hydroxyzine HCl (Hydroxyzine Hcl 50 Mg Tablet) 50 mg PO TID [facility] Last Admin: 02/14/21 14:52 Dose: 50 mg Documented by: Lidocaine (Lidocaine 4 % Patch Adh..Patch) 1 patch TRANSDERMA DAILY [facility]; Protocol Last Admin: 02/14/21 08:47 Dose: 1 patch Documented by: Magnesium Hydroxide (Milk Of Magnesia 30 Ml Oral.Susp) 30 ml PO DAILY PRN PRN Reason: Constipation Methadone HCl (Methadone Hcl 20 Mg/2 Ml Oral.Conc) 140 mg PO DAILY [facility] Last Admin: 02/14/21 08:47 Dose: 140 mg Documented by: Mirtazapine (Mirtazapine 15 Mg Tablet) 15 mg PO BEDTIME [facility] Naproxen (Naproxen 500 Mg Tablet) 500 mg PO BID PRN PRN Reason: pain Last Admin: 02/09/21 15:54 Dose: 500 mg Documented by: Nicotine Polacrilex (Nicotine Polacrilex 2 Mg Gum) 4 mg BUCCAL Q2H PRN PRN Reason: Nicotine Cravings Last Admin: 02/14/21 14:52 Dose: 4 mg Documented by: Prazosin HCl (Prazosin Hcl 1 Mg Capsule) 5 mg PO BEDTIME [facility]; Protocol Tamsulosin HCl (Tamsulosin Hcl 0.4 Mg Capsule) 0.4 mg PO BEDTIME [facility] Last Admin: 02/13/21 20:41 Dose: 0.4 mg Documented by: Trazodone HCl (Trazodone Hcl 50 Mg Tablet) 50 mg PO BEDTIME PRN PRN Reason: insomnia Last Admin: 02/14/21 02:34 Dose: 50 mg Documented by: Allergies Allergies Allergy/AdvReac Type Severity Reaction Status Date / Time shellfish derived Allergy Severe ANAPHAYLAXI Verified 08/04/20 22:58 [SHELLFISH DERIVED] A Assessment & Plan Assessment & Plan (1) MDD (major depressive disorder), recurrent episode, severe: Qualifiers: Psychotic features: without psychotic features Qualified Code(s): F33.2 - Major depressive disorder, recurrent severe without psychotic features Status: Chronic Code(s): F33.2 - Major depressive disorder, recurrent severe without psychotic features (2) PTSD (post-traumatic stress disorder): Status: Chronic Code(s): F43.10 - Post-traumatic stress disorder, unspecified (3) Opioid use disorder, mild, in early remission, on maintenance therapy: Status: Chronic Code(s): F11.11 - Opioid abuse, in remission Assessment and Plan: Guillermo is a 35-year-old male with history of depression, PTSD, chronic SI, substance abuse, opiate dependent on methadone. He has multiple inpatient psych admissions for relapse, SI, depression, and mood dysregulation. He has chronic homelessness with minimal family support, financial stress. Hx of non-adherence with follow up outpatient appointments. PLAN- increase prazosin and remeron 02/14. 1. Continue MAT, on Methadone 140 mg 2. Restarted remeron 7.5 mg QHS for insomnia, increased to 15 mg as of 02/14. 3. Continue Gabapentin 600 mg TID for pain, anxiety, mood 4. Continue Depakote 1500 mg QHS for mood regulation, VPA level pending 5. Continue abilify 15 mg QAM for mood regulation 6. Continue vistaril 50 mg tid for anxiety 7. Increased bupropion to XL 300 mg QAM for sx of depression due to reported benefit, monitor for activating SE 8. COntinued Prazosin at 4 mg QHS for hyperarousal, PTSD; dosing increased to 5 mg QHS as of 02/14. may need 8-10 mg. 9. Continue Clonidine 0.1 mg BID PRN for withdrawal sx Monitor response to medications. Monitor for safety in the milieu. Discharge on stabilization. Patient seen. Chart reviewed. Discussed with team.? ?? 02/11/21: Continue current plan of care. Pt asks for anxiety meds, however, regime is well supplied with several agents. Will focus on behavioral/coping interventions. 02/12/21: Coverage: Continue current plan of care. 02/13/21: Increased Wellbutrin XL to 450 mg daily. Monitor for side effects of anxiety and agitation. 02/14/21: increased remeron to 15 and prazosin to 5. Greater than 50% of the session was spent on counseling and/or coordination of care Reason for contiued inpatient stay Substantial Risk for: harm to self and inability to function
[2021-02-14 21:30] VITALS: BP 125/82; PULSE 69; RESP 18; TEMP 36.4; O2SAT 97
[2021-02-14] MEDS: Mirtazapine 15 MG TABLET PO (21:36)
[2021-02-14] MEDS: Divalproex Sodium ER 500 MG TAB.ER.24H 1500 MG PO (21:36)
[2021-02-14] MEDS: Atorvastatin Calcium 10 MG TABLET PO (21:36)
[2021-02-14] MEDS: Tamsulosin HCL 0.4 MG CAPSULE PO (21:36)
[2021-02-14 21:37] VITALS: BP 125/82; PULSE 69
[2021-02-14] MEDS: Prazosin HCL 1 MG CAPSULE 5 MG PO (21:37)
[2021-02-15] MEDS: Nicotine Polacrilex 2 MG GUM 4 MG BUCCAL ×5 (00:54→22:13)
[2021-02-15 09:08] VITALS: BP 114/67; PULSE 81; RESP 15; TEMP 36.8; O2SAT 96
[2021-02-15] MEDS: Docusate Sodium 100 MG CAPSULE PO ×2 (09:15→20:06)
[2021-02-15] MEDS: buPROPion HCl XL 150 MG TAB.ER.24H 450 MG PO (09:15)
[2021-02-15] MEDS: Baclofen 10 MG TABLET PO ×3 (09:15→20:06)
[2021-02-15] MEDS: ARIPiprazole 15 MG TABLET PO (09:15)
[2021-02-15] MEDS: Lidocaine 4 % Patch ADH..PATCH 1 PATCH TRANSDERMA (09:16)
[2021-02-15] MEDS: methADONE HCl 20 MG/2 ML ORAL.CONC 140 MG PO (09:17)
[2021-02-15] MEDS: hydrOXYzine HCL 50 MG TABLET PO ×3 (09:19→20:06)
[2021-02-15] MEDS: Gabapentin 600 MG TABLET PO ×3 (09:19→20:06)
--- NOTE | 2021-02-15 09:35 | HO.PSYCHPN ---
Subjective Subjective Date of Service: 02/17/21 Reason For Visit: SI Interim History: Pt reports feeling depressed, worried about his mother dying. Pt reports feeling significant guilt related to suffering he has caused his mother due to his ongoing substance use. Pt reports passive suicidal ideation. Pt tearful during interview stating he had just heard his mother's kidney disease is worsening and there is no kidney available for transplant. He has been attending some groups. He reports sleeping is fair. 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 c/o dizziness, headache GI: No c/o Nausea, Vomiting, diarrhea, constipation or heartburn Yes all other systems are reviewed and are negative Gastrointestinal: Reports constipation (resolved per pt report) Psychiatric: Reports anxiety, Reports depression, Reports difficulty concentrating, Reports hopelessness and Reports suicidal ideation Mental Status Exam Mental Status Exam Narrative: Appearance: casually groomed, fair hygiene in NAD Behavior:cooperative psychomotor:no agitation or retardation noted Speech:clear, normal rate/rhythm/volume, spontaneous Thought process:linear Thought content:no signs of psychosis Mood: depressed Affect: blunted SI:passive HI:none VH/AH:none expressed Delusions:none Insight/judgment:fair x 2. Memory/cog: alert, oriented x 3. grossly intact to conversational testing. Diagnostics Vital Signs (24Hr): Vital Signs - 24 hr 02/16/21 18:00 02/16/21 20:01 02/16/21 20:02 Temperature 98.4 F Pulse Rate 82 82 82 Respiratory Rate 16 Blood Pressure 113/66 113/66 113/66 Pulse Oximetry 96 02/17/21 03:43 02/17/21 08:26 Temperature 97.7 F Pulse Rate 82 90 Respiratory Rate Blood Pressure 118/68 119/73 Pulse Oximetry 99 Body Mass Index 26.6 Labs Results: 02/09/21 12:44 02/09/21 12:45 Medications Medications Current Medications Acetaminophen (Acetaminophen 325 Mg Tablet) 650 mg PO Q6H PRN PRN Reason: Headache/Pain Mild Scale (1-3) Al Hydroxide/Mg Hydroxide (Magnesium Hydrox/Alum Hydrox 30 Ml Oral.Susp) 30 ml PO Q6H PRN PRN Reason: Heartburn/Nausea Aripiprazole (Aripiprazole 15 Mg Tablet) 15 mg PO DAILY [facility] Last Admin: 02/17/21 08:00 Dose: 15 mg Documented by: Atorvastatin Calcium (Atorvastatin Calcium 10 Mg Tablet) 10 mg PO BEDTIME [facility] Last Admin: 02/16/21 20:03 Dose: 10 mg Documented by: Baclofen (Baclofen 10 Mg Tablet) 10 mg PO TID [facility] Last Admin: 02/17/21 08:01 Dose: 10 mg Documented by: Bisacodyl (Bisacodyl 5 Mg Tablet.Dr) 5 mg PO DAILY PRN PRN Reason: constipation Bupropion HCl (Bupropion Hcl Xl 300 Mg Tab.Er.24h) 300 mg PO DAILY [facility] Last Admin: 02/17/21 08:01 Dose: 300 mg Documented by: Clonidine HCl (Clonidine Hcl 0.1 Mg Tablet) 0.1 mg PO BID PRN; Protocol PRN Reason: anxiety Last Admin: 02/17/21 03:43 Dose: 0.1 mg Documented by: Divalproex Sodium (Divalproex Sodium Er 500 Mg Tab.Er.24h) 1,500 mg PO BEDTIME [facility] Last Admin: 02/16/21 20:02 Dose: 1,500 mg Documented by: Docusate Sodium (Docusate Sodium 100 Mg Capsule) 100 mg PO BID [facility] Last Admin: 02/17/21 08:01 Dose: 100 mg Documented by: Gabapentin (Gabapentin 600 Mg Tablet) 600 mg PO TID [facility] Last Admin: 02/17/21 08:01 Dose: 600 mg Documented by: Hydroxyzine HCl (Hydroxyzine Hcl 50 Mg Tablet) 50 mg PO TID [facility] Last Admin: 02/17/21 08:01 Dose: 50 mg Documented by: Lidocaine (Lidocaine 4 % Patch Adh..Patch) 1 patch TRANSDERMA DAILY [facility]; Protocol Last Admin: 02/16/21 11:40 Dose: 1 patch Documented by: Magnesium Hydroxide (Milk Of Magnesia 30 Ml Oral.Susp) 30 ml PO DAILY PRN PRN Reason: Constipation Methadone HCl (Methadone Hcl 20 Mg/2 Ml Oral.Conc) 140 mg PO DAILY [facility] Last Admin: 02/17/21 08:01 Dose: 140 mg Documented by: Mirtazapine (Mirtazapine 30 Mg Tablet) 30 mg PO BEDTIME [facility] Last Admin: 02/16/21 20:03 Dose: 30 mg Documented by: Naproxen (Naproxen 500 Mg Tablet) 500 mg PO BID PRN PRN Reason: pain Last Admin: 02/09/21 15:54 Dose: 500 mg Documented by: Nicotine Polacrilex (Nicotine Polacrilex 2 Mg Gum) 4 mg BUCCAL Q2H PRN PRN Reason: Nicotine Cravings Last Admin: 02/17/21 08:00 Dose: 4 mg Documented by: Prazosin HCl (Prazosin Hcl 5 Mg Capsule) 5 mg PO BEDTIME [facility] Last Admin: 02/16/21 20:01 Dose: 5 mg Documented by: Prazosin HCl (Prazosin Hcl 1 Mg Capsule) 1 mg PO BEDTIME [facility] Last Admin: 02/16/21 20:02 Dose: 1 mg Documented by: Tamsulosin HCl (Tamsulosin Hcl 0.4 Mg Capsule) 0.4 mg PO BEDTIME [facility] Last Admin: 02/16/21 20:06 Dose: 0.4 mg Documented by: Trazodone HCl (Trazodone Hcl 50 Mg Tablet) 50 mg PO BEDTIME PRN PRN Reason: insomnia Last Admin: 02/17/21 03:44 Dose: 50 mg Documented by: Allergies Allergies Allergy/AdvReac Type Severity Reaction Status Date / Time shellfish derived Allergy Severe ANAPHAYLAXI Verified 08/04/20 22:58 [SHELLFISH DERIVED] A Assessment & Plan Assessment & Plan (1) MDD (major depressive disorder), recurrent episode, severe: Qualifiers: Psychotic features: without psychotic features Qualified Code(s): F33.2 - Major depressive disorder, recurrent severe without psychotic features Status: Chronic Code(s): F33.2 - Major depressive disorder, recurrent severe without psychotic features (2) PTSD (post-traumatic stress disorder): Status: Chronic Code(s): F43.10 - Post-traumatic stress disorder, unspecified (3) Opioid use disorder, mild, in early remission, on maintenance therapy: Status: Chronic Code(s): F11.11 - Opioid abuse, in remission Assessment and Plan: Guillermo is a 35-year-old male with history of depression, PTSD, chronic SI, substance abuse, opiate dependent on methadone. He has multiple inpatient psych admissions for relapse, SI, depression, and mood dysregulation. He has chronic homelessness with minimal family support, financial stress. Hx of non-adherence with follow up outpatient appointments. PLAN- increase prazosin and remeron 02/14. 1. Continue MAT, on Methadone 140 mg 2. Restarted remeron 7.5 mg QHS for insomnia, increased to 15 mg as of 02/14. 3. Continue Gabapentin 600 mg TID for pain, anxiety, mood 4. Continue Depakote 1500 mg QHS for mood regulation, VPA level pending 5. Continue abilify 15 mg QAM for mood regulation 6. Continue vistaril 50 mg tid for anxiety 7. Increased bupropion to XL 300 mg QAM for sx of depression due to reported benefit, monitor for activating SE 8. COntinued Prazosin at 5 mg QHS for hyperarousal, PTSD; dosing increased to 5 mg QHS as of 02/14. may need 8-10 mg. 9. Continue Clonidine 0.1 mg BID PRN for withdrawal sx Monitor response to medications. Monitor for safety in the milieu. Discharge on stabilization. Patient seen. Chart reviewed. Discussed with team.? ?? 02/11/21: Continue current plan of care. Pt asks for anxiety meds, however, regime is well supplied with several agents. Will focus on behavioral/coping interventions. 02/12/21: Coverage: Continue current plan of care. 02/13/21: Increased Wellbutrin XL to 450 mg daily. Monitor for side effects of anxiety and agitation. 02/14/21: increased remeron to 15 and prazosin to 5. Greater than 50% of the session was spent on counseling and/or coordination of care Reason for contiued inpatient stay Substantial Risk for: harm to self
[2021-02-15 16:21] VITALS: BP 118/71; PULSE 90
[2021-02-15] MEDS: cloNIDine HCL 0.1 MG TABLET PO ×2 (16:21→23:58)
[2021-02-15 18:00] VITALS: BP 127/75; PULSE 79; RESP 18; TEMP 36.8; O2SAT 98
[2021-02-15 20:06] VITALS: BP 127/75; PULSE 79
[2021-02-15] MEDS: Tamsulosin HCL 0.4 MG CAPSULE PO (20:06)
[2021-02-15] MEDS: Mirtazapine 15 MG TABLET PO (20:06)
[2021-02-15] MEDS: Prazosin HCL 1 MG CAPSULE 5 MG PO (20:06)
[2021-02-15] MEDS: Atorvastatin Calcium 10 MG TABLET PO (20:06)
[2021-02-15] MEDS: Divalproex Sodium ER 500 MG TAB.ER.24H 1500 MG PO (20:06)
[2021-02-15 23:58] VITALS: BP 124/71; PULSE 79
[2021-02-15] MEDS: traZODone HCL 50 MG TABLET PO (23:58)
[2021-02-16] MEDS: Nicotine Polacrilex 2 MG GUM 4 MG BUCCAL ×6 (03:47→21:13)
[2021-02-16] MEDS: ARIPiprazole 15 MG TABLET PO (08:05)
[2021-02-16] MEDS: hydrOXYzine HCL 50 MG TABLET PO ×3 (08:05→20:02)
[2021-02-16] MEDS: Gabapentin 600 MG TABLET PO ×3 (08:05→20:02)
[2021-02-16] MEDS: buPROPion HCl XL 150 MG TAB.ER.24H 450 MG PO (08:05)
[2021-02-16] MEDS: Docusate Sodium 100 MG CAPSULE PO ×2 (08:05→20:02)
[2021-02-16] MEDS: Baclofen 10 MG TABLET PO ×3 (08:05→20:02)
[2021-02-16] MEDS: methADONE HCl 20 MG/2 ML ORAL.CONC 140 MG PO (08:06)
[2021-02-16 08:18] VITALS: BP 111/65; PULSE 75; RESP 16; TEMP 36.3; O2SAT 96
--- NOTE | 2021-02-16 09:38 | HO.PSYCHPN ---
Subjective Subjective Date of Service: 02/17/21 Reason For Visit: SI Interim History: Pt reports feeling less depressed, worried about his mother dying. Pt continues to report feeling significant guilt related to suffering he has caused his mother due to his ongoing substance use. Pt reports passive suicidal ideation. Pt tearful during interview stating he had just heard his mother's kidney disease is worsening and there is no kidney available for transplant. He has been attending some groups. He reports sleeping is fair. 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 c/o dizziness, headache GI: No c/o Nausea, Vomiting, diarrhea, constipation or heartburn Yes all other systems are reviewed and are negative Gastrointestinal: Reports constipation (resolved per pt report) Psychiatric: Reports anxiety, Reports depression, Reports difficulty concentrating, Reports hopelessness and Reports suicidal ideation Mental Status Exam Mental Status Exam Narrative: Appearance: casually groomed, fair hygiene in NAD Behavior:cooperative psychomotor:no agitation or retardation noted Speech:clear, normal rate/rhythm/volume, spontaneous Thought process:linear Thought content:no signs of psychosis Mood: depressed Affect: blunted SI:passive HI:none VH/AH:none expressed Delusions:none Insight/judgment:fair x 2. Memory/cog: alert, oriented x 3. grossly intact to conversational testing. Diagnostics Vital Signs (24Hr): Vital Signs - 24 hr 02/16/21 18:00 02/16/21 20:01 02/16/21 20:02 Temperature 98.4 F Pulse Rate 82 82 82 Respiratory Rate 16 Blood Pressure 113/66 113/66 113/66 Pulse Oximetry 96 02/17/21 03:43 02/17/21 08:26 Temperature 97.7 F Pulse Rate 82 90 Respiratory Rate Blood Pressure 118/68 119/73 Pulse Oximetry 99 Body Mass Index 26.6 Labs Results: 02/09/21 12:44 02/09/21 12:45 Medications Medications Current Medications Acetaminophen (Acetaminophen 325 Mg Tablet) 650 mg PO Q6H PRN PRN Reason: Headache/Pain Mild Scale (1-3) Al Hydroxide/Mg Hydroxide (Magnesium Hydrox/Alum Hydrox 30 Ml Oral.Susp) 30 ml PO Q6H PRN PRN Reason: Heartburn/Nausea Aripiprazole (Aripiprazole 15 Mg Tablet) 15 mg PO DAILY [facility] Last Admin: 02/17/21 08:00 Dose: 15 mg Documented by: Atorvastatin Calcium (Atorvastatin Calcium 10 Mg Tablet) 10 mg PO BEDTIME [facility] Last Admin: 02/16/21 20:03 Dose: 10 mg Documented by: Baclofen (Baclofen 10 Mg Tablet) 10 mg PO TID [facility] Last Admin: 02/17/21 08:01 Dose: 10 mg Documented by: Bisacodyl (Bisacodyl 5 Mg Tablet.Dr) 5 mg PO DAILY PRN PRN Reason: constipation Bupropion HCl (Bupropion Hcl Xl 300 Mg Tab.Er.24h) 300 mg PO DAILY [facility] Last Admin: 02/17/21 08:01 Dose: 300 mg Documented by: Clonidine HCl (Clonidine Hcl 0.1 Mg Tablet) 0.1 mg PO BID PRN; Protocol PRN Reason: anxiety Last Admin: 02/17/21 03:43 Dose: 0.1 mg Documented by: Divalproex Sodium (Divalproex Sodium Er 500 Mg Tab.Er.24h) 1,500 mg PO BEDTIME [facility] Last Admin: 02/16/21 20:02 Dose: 1,500 mg Documented by: Docusate Sodium (Docusate Sodium 100 Mg Capsule) 100 mg PO BID [facility] Last Admin: 02/17/21 08:01 Dose: 100 mg Documented by: Gabapentin (Gabapentin 600 Mg Tablet) 600 mg PO TID [facility] Last Admin: 02/17/21 08:01 Dose: 600 mg Documented by: Hydroxyzine HCl (Hydroxyzine Hcl 50 Mg Tablet) 50 mg PO TID [facility] Last Admin: 02/17/21 08:01 Dose: 50 mg Documented by: Lidocaine (Lidocaine 4 % Patch Adh..Patch) 1 patch TRANSDERMA DAILY [facility]; Protocol Last Admin: 02/16/21 11:40 Dose: 1 patch Documented by: Magnesium Hydroxide (Milk Of Magnesia 30 Ml Oral.Susp) 30 ml PO DAILY PRN PRN Reason: Constipation Methadone HCl (Methadone Hcl 20 Mg/2 Ml Oral.Conc) 140 mg PO DAILY [facility] Last Admin: 02/17/21 08:01 Dose: 140 mg Documented by: Mirtazapine (Mirtazapine 30 Mg Tablet) 30 mg PO BEDTIME [facility] Last Admin: 02/16/21 20:03 Dose: 30 mg Documented by: Naproxen (Naproxen 500 Mg Tablet) 500 mg PO BID PRN PRN Reason: pain Last Admin: 02/09/21 15:54 Dose: 500 mg Documented by: Nicotine Polacrilex (Nicotine Polacrilex 2 Mg Gum) 4 mg BUCCAL Q2H PRN PRN Reason: Nicotine Cravings Last Admin: 02/17/21 08:00 Dose: 4 mg Documented by: Prazosin HCl (Prazosin Hcl 5 Mg Capsule) 5 mg PO BEDTIME [facility] Last Admin: 02/16/21 20:01 Dose: 5 mg Documented by: Prazosin HCl (Prazosin Hcl 1 Mg Capsule) 1 mg PO BEDTIME [facility] Last Admin: 02/16/21 20:02 Dose: 1 mg Documented by: Tamsulosin HCl (Tamsulosin Hcl 0.4 Mg Capsule) 0.4 mg PO BEDTIME [facility] Last Admin: 02/16/21 20:06 Dose: 0.4 mg Documented by: Trazodone HCl (Trazodone Hcl 50 Mg Tablet) 50 mg PO BEDTIME PRN PRN Reason: insomnia Last Admin: 02/17/21 03:44 Dose: 50 mg Documented by: Allergies Allergies Allergy/AdvReac Type Severity Reaction Status Date / Time shellfish derived Allergy Severe ANAPHAYLAXI Verified 08/04/20 22:58 [SHELLFISH DERIVED] A Assessment & Plan Assessment & Plan (1) MDD (major depressive disorder), recurrent episode, severe: Qualifiers: Psychotic features: without psychotic features Qualified Code(s): F33.2 - Major depressive disorder, recurrent severe without psychotic features Status: Chronic Code(s): F33.2 - Major depressive disorder, recurrent severe without psychotic features (2) PTSD (post-traumatic stress disorder): Status: Chronic Code(s): F43.10 - Post-traumatic stress disorder, unspecified (3) Opioid use disorder, mild, in early remission, on maintenance therapy: Status: Chronic Code(s): F11.11 - Opioid abuse, in remission Assessment and Plan: Guillermo is a 35-year-old male with history of depression, PTSD, chronic SI, substance abuse, opiate dependent on methadone. He has multiple inpatient psych admissions for relapse, SI, depression, and mood dysregulation. He has chronic homelessness with minimal family support, financial stress. Hx of non-adherence with follow up outpatient appointments. PLAN- increase prazosin and remeron 02/14. 1. Continue MAT, on Methadone 140 mg 2. Restarted remeron 7.5 mg QHS for insomnia, increased to 15 mg as of 02/14. 3. Continue Gabapentin 600 mg TID for pain, anxiety, mood 4. Continue Depakote 1500 mg QHS for mood regulation, VPA level pending 5. Continue abilify 15 mg QAM for mood regulation 6. Continue vistaril 50 mg tid for anxiety 7. Increased bupropion to XL 300 mg QAM for sx of depression due to reported benefit, monitor for activating SE 8. COntinued Prazosin at 5 mg QHS for hyperarousal, PTSD; dosing increased to 5 mg QHS as of 02/14. may need 8-10 mg. 9. Continue Clonidine 0.1 mg BID PRN for withdrawal sx Monitor response to medications. Monitor for safety in the milieu. Discharge on stabilization. Patient seen. Chart reviewed. Discussed with team.? ?? 02/11/21: Continue current plan of care. Pt asks for anxiety meds, however, regime is well supplied with several agents. Will focus on behavioral/coping interventions. 02/12/21: Coverage: Continue current plan of care. 02/13/21: Increased Wellbutrin XL to 450 mg daily. Monitor for side effects of anxiety and agitation. 02/14/21: increased remeron to 15 and prazosin to 5. Greater than 50% of the session was spent on counseling and/or coordination of care Reason for contiued inpatient stay Substantial Risk for: harm to self
[2021-02-16] MEDS: Lidocaine 4 % Patch ADH..PATCH 1 PATCH TRANSDERMA (11:40)
[2021-02-16 18:00] VITALS: BP 113/66; PULSE 82; RESP 16; TEMP 36.9; O2SAT 96
[2021-02-16 20:01] VITALS: BP 113/66; PULSE 82
[2021-02-16] MEDS: Prazosin HCL 5 MG CAPSULE PO (20:01)
[2021-02-16 20:02] VITALS: BP 113/66; PULSE 82
[2021-02-16] MEDS: Prazosin HCL 1 MG CAPSULE PO (20:02)
[2021-02-16] MEDS: Divalproex Sodium ER 500 MG TAB.ER.24H 1500 MG PO (20:02)
[2021-02-16] MEDS: Mirtazapine 30 MG TABLET PO (20:03)
[2021-02-16] MEDS: Atorvastatin Calcium 10 MG TABLET PO (20:03)
[2021-02-16] MEDS: Tamsulosin HCL 0.4 MG CAPSULE PO (20:06)
[2021-02-17] MEDS: Nicotine Polacrilex 2 MG GUM 4 MG BUCCAL ×3 (03:36→14:02)
[2021-02-17 03:43] VITALS: BP 118/68; PULSE 82
[2021-02-17] MEDS: cloNIDine HCL 0.1 MG TABLET PO (03:43)
[2021-02-17] MEDS: traZODone HCL 50 MG TABLET PO (03:44)
[2021-02-17] MEDS: ARIPiprazole 15 MG TABLET PO (08:00)
[2021-02-17] MEDS: Gabapentin 600 MG TABLET PO ×3 (08:01→20:12)
[2021-02-17] MEDS: Baclofen 10 MG TABLET PO ×3 (08:01→20:13)
[2021-02-17] MEDS: hydrOXYzine HCL 50 MG TABLET PO ×3 (08:01→20:13)
[2021-02-17] MEDS: Docusate Sodium 100 MG CAPSULE PO ×2 (08:01→20:13)
[2021-02-17] MEDS: methADONE HCl 20 MG/2 ML ORAL.CONC 140 MG PO (08:01)
[2021-02-17] MEDS: buPROPion HCl XL 300 MG TAB.ER.24H PO (08:01)
[2021-02-17 08:26] VITALS: BP 119/73; PULSE 90; TEMP 36.5; O2SAT 99
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
--- NOTE | 2021-02-17 12:14 | MHC.CLN ---
F/U REPORTS THAT IS TAKING ENSURE SUPPLEMENT. DISLIKES CHOCOLATE. KITCHEN AWARE.
[2021-02-17] MEDS: Lidocaine 4 % Patch ADH..PATCH 1 PATCH TRANSDERMA (12:39)
[2021-02-17 18:00] VITALS: BP 119/66; PULSE 77; RESP 18; TEMP 36.5; O2SAT 98
[2021-02-17 20:12] VITALS: BP 133/66; PULSE 77
[2021-02-17] MEDS: Mirtazapine 30 MG TABLET PO (20:12)
[2021-02-17] MEDS: Divalproex Sodium ER 500 MG TAB.ER.24H 1500 MG PO (20:12)
[2021-02-17] MEDS: Prazosin HCL 5 MG CAPSULE PO (20:12)
[2021-02-17 20:13] VITALS: BP 119/66; PULSE 77
[2021-02-17] MEDS: Prazosin HCL 1 MG CAPSULE PO (20:13)
[2021-02-17] MEDS: Tamsulosin HCL 0.4 MG CAPSULE PO (20:13)
[2021-02-17] MEDS: Atorvastatin Calcium 10 MG TABLET PO (20:13)
[2021-02-18 00:46] VITALS: BP 131/78; PULSE 72
[2021-02-18] MEDS: cloNIDine HCL 0.1 MG TABLET PO ×2 (00:46→14:18)
[2021-02-18] MEDS: Nicotine Polacrilex 2 MG GUM 4 MG BUCCAL ×5 (00:46→20:58)
[2021-02-18] MEDS: traZODone HCL 50 MG TABLET PO (00:46)
[2021-02-18 08:35] VITALS: BP 120/60; PULSE 76; RESP 16; TEMP 36.7; O2SAT 96
[2021-02-18] MEDS: Lidocaine 4 % Patch ADH..PATCH 1 PATCH TRANSDERMA (08:40)
[2021-02-18] MEDS: methADONE HCl 20 MG/2 ML ORAL.CONC 140 MG PO (08:41)
[2021-02-18] MEDS: buPROPion HCl XL 300 MG TAB.ER.24H PO (08:41)
[2021-02-18] MEDS: hydrOXYzine HCL 50 MG TABLET PO ×3 (08:41→20:33)
[2021-02-18] MEDS: Baclofen 10 MG TABLET PO (08:41)
[2021-02-18] MEDS: ARIPiprazole 15 MG TABLET PO (08:41)
[2021-02-18] MEDS: Gabapentin 600 MG TABLET PO ×3 (08:41→20:34)
[2021-02-18] MEDS: Docusate Sodium 100 MG CAPSULE PO ×2 (08:41→20:34)
--- NOTE | 2021-02-18 12:15 | HO.PSYCHPN ---
Subjective Subjective Date of Service: 02/18/21 Reason For Visit: SI Interim History: Patient seen and discussed with team. Patient evaluated this morning and upon interview he reports he is not well and has a lot of things on my mind. His mom is still in the hospital, she?s not well, talked to her yesterday, she sounds so weak, its killing me. Continues to report issues with depression, anxiety, and ptsd, its just crazy. Wants to talk with SW about referral for OP therapy. 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 Denies SI upon inquiry today. Eating okay. Asks to increase dose of baclofen due to chronic pain issues, which leads to urges to use, I had some cravings yesterday. T/W agreed to increase dose to 15 mg from 10 mg. In the milieu, patient is safe and appropriate in behavior. Denies SI/SIB/HI upon inquiry. Denies irritability or assaultive ideation. Says he feels safe. Mental Status Exam Mental Status Exam Narrative: Appearance: casually groomed, fair hygiene in NAD Behavior:cooperative psychomotor:no agitation or retardation noted Speech:clear, normal rate/rhythm/volume, spontaneous Thought process:linear Thought content:no signs of psychosis Mood: depressed Affect: blunted SI:passive HI:none VH/AH:none expressed Delusions:none Insight/judgment:fair x 2. Memory/cog: alert, oriented x 3. grossly intact to conversational testing. Diagnostics Vital Signs (24Hr): Vital Signs - 24 hr 02/17/21 18:00 02/17/21 20:12 02/17/21 20:13 Temperature 97.7 F Pulse Rate 77 77 77 Respiratory Rate 18 Blood Pressure 119/66 133/66 119/66 Pulse Oximetry 98 02/18/21 00:46 02/18/21 08:35 Temperature 98.0 F Pulse Rate 72 76 Respiratory Rate 16 Blood Pressure 131/78 120/60 Pulse Oximetry 96 Body Mass Index 26.6 Labs Results: 02/09/21 12:44 02/09/21 12:45 Medications Medications Current Medications Acetaminophen (Acetaminophen 325 Mg Tablet) 650 mg PO Q6H PRN PRN Reason: Headache/Pain Mild Scale (1-3) Al Hydroxide/Mg Hydroxide (Magnesium Hydrox/Alum Hydrox 30 Ml Oral.Susp) 30 ml PO Q6H PRN PRN Reason: Heartburn/Nausea Aripiprazole (Aripiprazole 15 Mg Tablet) 15 mg PO DAILY [facility] Last Admin: 02/18/21 08:41 Dose: 15 mg Documented by: Atorvastatin Calcium (Atorvastatin Calcium 10 Mg Tablet) 10 mg PO BEDTIME [facility] Last Admin: 02/17/21 20:13 Dose: 10 mg Documented by: Baclofen (Baclofen 10 Mg Tablet) 15 mg PO TID [facility] Bisacodyl (Bisacodyl 5 Mg Tablet.Dr) 5 mg PO DAILY PRN PRN Reason: constipation Bupropion HCl (Bupropion Hcl Xl 300 Mg Tab.Er.24h) 300 mg PO DAILY [facility] Last Admin: 02/18/21 08:41 Dose: 300 mg Documented by: Clonidine HCl (Clonidine Hcl 0.1 Mg Tablet) 0.1 mg PO BID PRN; Protocol PRN Reason: anxiety Last Admin: 02/18/21 00:46 Dose: 0.1 mg Documented by: Divalproex Sodium (Divalproex Sodium Er 500 Mg Tab.Er.24h) 1,500 mg PO BEDTIME [facility] Last Admin: 02/17/21 20:12 Dose: 1,500 mg Documented by: Docusate Sodium (Docusate Sodium 100 Mg Capsule) 100 mg PO BID [facility] Last Admin: 02/18/21 08:41 Dose: 100 mg Documented by: Gabapentin (Gabapentin 600 Mg Tablet) 600 mg PO TID [facility] Last Admin: 02/18/21 08:41 Dose: 600 mg Documented by: Hydroxyzine HCl (Hydroxyzine Hcl 50 Mg Tablet) 50 mg PO TID [facility] Last Admin: 02/18/21 08:41 Dose: 50 mg Documented by: Lidocaine (Lidocaine 4 % Patch Adh..Patch) 1 patch TRANSDERMA DAILY [facility]; Protocol Last Admin: 02/18/21 08:40 Dose: 1 patch Documented by: Magnesium Hydroxide (Milk Of Magnesia 30 Ml Oral.Susp) 30 ml PO DAILY PRN PRN Reason: Constipation Methadone HCl (Methadone Hcl 20 Mg/2 Ml Oral.Conc) 140 mg PO DAILY [facility] Last Admin: 02/18/21 08:41 Dose: 140 mg Documented by: Mirtazapine (Mirtazapine 30 Mg Tablet) 30 mg PO BEDTIME [facility] Last Admin: 02/17/21 20:12 Dose: 30 mg Documented by: Naproxen (Naproxen 500 Mg Tablet) 500 mg PO BID PRN PRN Reason: pain Last Admin: 02/09/21 15:54 Dose: 500 mg Documented by: Nicotine Polacrilex (Nicotine Polacrilex 2 Mg Gum) 4 mg BUCCAL Q2H PRN PRN Reason: Nicotine Cravings Last Admin: 02/18/21 09:46 Dose: 4 mg Documented by: Nystatin (Nystatin Cream 15 Gm Tube) 1 appl TOPICAL BID PRN; Protocol PRN Reason: itching Prazosin HCl (Prazosin Hcl 5 Mg Capsule) 5 mg PO BEDTIME [facility] Last Admin: 02/17/21 20:12 Dose: 5 mg Documented by: Prazosin HCl (Prazosin Hcl 1 Mg Capsule) 1 mg PO BEDTIME [facility] Last Admin: 02/17/21 20:13 Dose: 1 mg Documented by: Tamsulosin HCl (Tamsulosin Hcl 0.4 Mg Capsule) 0.4 mg PO BEDTIME [facility] Last Admin: 02/17/21 20:13 Dose: 0.4 mg Documented by: Trazodone HCl (Trazodone Hcl 50 Mg Tablet) 50 mg PO BEDTIME PRN PRN Reason: insomnia Last Admin: 02/18/21 00:46 Dose: 50 mg Documented by: Allergies Allergies Allergy/AdvReac Type Severity Reaction Status Date / Time shellfish derived Allergy Severe ANAPHAYLAXI Verified 08/04/20 22:58 [SHELLFISH DERIVED] A Assessment & Plan Assessment & Plan (1) MDD (major depressive disorder), recurrent episode, severe: Qualifiers: Psychotic features: without psychotic features Qualified Code(s): F33.2 - Major depressive disorder, recurrent severe without psychotic features Status: Chronic Code(s): F33.2 - Major depressive disorder, recurrent severe without psychotic features (2) PTSD (post-traumatic stress disorder): Status: Chronic Code(s): F43.10 - Post-traumatic stress disorder, unspecified (3) Opioid use disorder, mild, in early remission, on maintenance therapy: Status: Chronic Code(s): F11.11 - Opioid abuse, in remission Assessment and Plan: Guillermo is a 35-year-old male with history of depression, PTSD, chronic SI, substance abuse, opiate dependent on methadone. He has multiple inpatient psych admissions for relapse, SI, depression, and mood dysregulation. He has chronic homelessness with minimal family support, financial stress. Hx of non-adherence with follow up outpatient appointments. PLAN- increase prazosin and remeron 02/14. 1. Continue MAT, on Methadone 140 mg 2. Restarted remeron 7.5 mg QHS for insomnia, increased to 15 mg as of 02/14. 3. Continue Gabapentin 600 mg TID for pain, anxiety, mood 4. Continue Depakote 1500 mg QHS for mood regulation, VPA level pending 5. Continue abilify 15 mg QAM for mood regulation 6. Continue vistaril 50 mg tid for anxiety 7. Increased bupropion to XL 300 mg QAM for sx of depression due to reported benefit, monitor for activating SE 8. COntinued Prazosin at 5 mg QHS for hyperarousal, PTSD; dosing increased to 5 mg QHS as of 02/14. may need 8-10 mg. 9. Continue Clonidine 0.1 mg BID PRN for withdrawal sx Monitor response to medications. Monitor for safety in the milieu. Discharge on stabilization. Patient seen. Chart reviewed. Discussed with team.? ?? 02/11/21: Continue current plan of care. Pt asks for anxiety meds, however, regime is well supplied with several agents. Will focus on behavioral/coping interventions. 02/12/21: Coverage: Continue current plan of care. 02/13/21: Increased Wellbutrin XL to 450 mg daily. Monitor for side effects of anxiety and agitation. 02/14/21: increased remeron to 15 and prazosin to 5 Weekend coverage: Pt advocated to increase baclofen to 15 mg due to chronic pain sx and hopes this well help with urges to use. Will trial an increase, reviewed risks and benefits. Greater than 50% of the session was spent on counseling and/or coordination of care Reason for contiued inpatient stay Substantial Risk for: harm to self, rapid decompensation and med/psych decompensation
[2021-02-18] MEDS: Nystatin Cream 15 GM TUBE 1 APPL TOPICAL (13:41)
[2021-02-18 14:18] VITALS: BP 130/72; PULSE 82
[2021-02-18] MEDS: Baclofen 10 MG TABLET 15 MG PO ×2 (14:38→20:34)
[2021-02-18 18:00] VITALS: BP 128/70; PULSE 83; RESP 16; TEMP 36.4; O2SAT 95
[2021-02-18] MEDS: Prazosin HCL 1 MG CAPSULE PO (20:33)
[2021-02-18] MEDS: Prazosin HCL 5 MG CAPSULE PO (20:33)
[2021-02-18] MEDS: Tamsulosin HCL 0.4 MG CAPSULE PO (20:33)
[2021-02-18] MEDS: Divalproex Sodium ER 500 MG TAB.ER.24H 1500 MG PO (20:33)
[2021-02-18] MEDS: Mirtazapine 30 MG TABLET PO (20:33)
[2021-02-18] MEDS: Atorvastatin Calcium 10 MG TABLET PO (20:33)
[2021-02-19] MEDS: Nicotine Polacrilex 2 MG GUM 4 MG BUCCAL ×4 (03:36→20:46)
[2021-02-19 08:30] VITALS: BP 113/60; PULSE 76; RESP 16; TEMP 36.8; O2SAT 96
[2021-02-19] MEDS: Baclofen 10 MG TABLET 15 MG PO ×3 (08:56→20:37)
[2021-02-19] MEDS: ARIPiprazole 15 MG TABLET PO (08:57)
[2021-02-19] MEDS: buPROPion HCl XL 300 MG TAB.ER.24H PO (08:57)
[2021-02-19] MEDS: Docusate Sodium 100 MG CAPSULE PO ×2 (08:57→20:37)
[2021-02-19] MEDS: Gabapentin 600 MG TABLET PO ×3 (08:57→20:38)
[2021-02-19] MEDS: hydrOXYzine HCL 50 MG TABLET PO ×3 (08:57→20:38)
[2021-02-19] MEDS: methADONE HCl 20 MG/2 ML ORAL.CONC 140 MG PO (08:58)
[2021-02-19 09:09] VITALS: BP 125/60; PULSE 93; RESP 16; TEMP 36.7; O2SAT 97
[2021-02-19] MEDS: Lidocaine 4 % Patch ADH..PATCH 1 PATCH TRANSDERMA (11:43)
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
[2021-02-19] MEDS: Divalproex Sodium ER 500 MG TAB.ER.24H 1500 MG PO (20:36)
[2021-02-19 20:37] VITALS: BP 113/60; PULSE 76
[2021-02-19] MEDS: Prazosin HCL 1 MG CAPSULE 2 MG PO (20:37)
[2021-02-19 20:38] VITALS: BP 113/60; PULSE 76
[2021-02-19] MEDS: Prazosin HCL 5 MG CAPSULE PO (20:38)
[2021-02-19] MEDS: Atorvastatin Calcium 10 MG TABLET PO (20:38)
[2021-02-19] MEDS: Tamsulosin HCL 0.4 MG CAPSULE PO (20:38)
[2021-02-19] MEDS: Mirtazapine 30 MG TABLET PO (20:38)
[2021-02-20] MEDS: traZODone HCL 50 MG TABLET PO (02:00)
[2021-02-20] MEDS: Nicotine Polacrilex 2 MG GUM 4 MG BUCCAL ×5 (02:00→22:03)
[2021-02-20 02:01] VITALS: BP 129/72; PULSE 76
[2021-02-20] MEDS: cloNIDine HCL 0.1 MG TABLET PO (02:01)
[2021-02-20 08:00] VITALS: BP 131/75; PULSE 82; RESP 18; TEMP 36.6; O2SAT 96
[2021-02-20] MEDS: Docusate Sodium 100 MG CAPSULE PO ×2 (08:00→21:53)
[2021-02-20] MEDS: hydrOXYzine HCL 50 MG TABLET PO ×3 (08:00→21:56)
[2021-02-20] MEDS: ARIPiprazole 15 MG TABLET PO (08:00)
[2021-02-20] MEDS: buPROPion HCl XL 150 MG TAB.ER.24H 450 MG PO (08:00)
[2021-02-20] MEDS: methADONE HCl 20 MG/2 ML ORAL.CONC 140 MG PO (08:00)
[2021-02-20] MEDS: Baclofen 10 MG TABLET 15 MG PO ×3 (08:01→21:53)
[2021-02-20] MEDS: Gabapentin 600 MG TABLET PO ×3 (08:02→21:57)
--- NOTE | 2021-02-20 14:48 | P.PNPSI_ITS ---
Subjective Subjective Date of Service: 02/20/21 Reason For Visit: SI Subjective Notes: Conditional Voluntary Interim History: Pt reports he is doing well in that he feels more optimistic about his future. He reports less depressed mood. He reports although he has ni ghtmares, reaction at night (hypervigilance/anxious mood) are less. He denies SI/HI. He continues to decline referral to [facility]. He states he will continue on methadone and insists on needing to find job, although recognized that last year unable to work due to substance use. Per nursing, pt visible in the unit. He does attend groups. No behavioral concerns. taking medications as prescribed. Medication Compliance: Yes Side effects from medications: No Attending Groups: Yes 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 [employer]: No c/o dizziness, headache GI: No c/o Nausea, Vomiting, diarrhea, constipation or heartburn Yes all other systems are reviewed and are negative Gastrointestinal: Reports constipation (resolved per pt report) Psychiatric: Reports anxiety, Reports depression, Reports difficulty concentrating, Reports hopelessness and Reports suicidal ideation Mental Status Exam Mental Status Exam Narrative: Appearance: casually groomed, fair hygiene in NAD Behavior:cooperative psychomotor:no agitation or retardation noted Speech:clear, normal rate/rhythm/volume, spontaneous Thought process:linear Thought content:no signs of psychosis, future oriented, wanting to be discharge Mood: alright Affect: brighter SI:none HI:none VH/AH:none expressed Delusions:none Insight/judgment:fair x 2. Memory/cog: alert, oriented x 3. grossly intact to conversational testing. Diagnostics Vital Signs (24Hr): Vital Signs - 24 hr 02/19/21 20:37 02/19/21 20:38 02/20/21 02:01 Temperature Pulse Rate 76 76 76 Respiratory Rate Blood Pressure 113/60 113/60 129/72 Pulse Oximetry 02/20/21 08:00 Temperature 97.8 F Pulse Rate 82 Respiratory Rate 18 Blood Pressure 131/75 Pulse Oximetry 96 Body Mass Index 26.6 Labs Results: 02/09/21 12:44 02/09/21 12:45 Medications Medications Current Medications Acetaminophen (Acetaminophen 325 Mg Tablet) 650 mg PO Q6H PRN PRN Reason: Headache/Pain Mild Scale (1-3) Al Hydroxide/Mg Hydroxide (Magnesium Hydrox/Alum Hydrox 30 Ml Oral.Susp) 30 ml PO Q6H PRN PRN Reason: Heartburn/Nausea Aripiprazole (Aripiprazole 15 Mg Tablet) 15 mg PO DAILY [facility] Last Admin: 02/20/21 08:00 Dose: 15 mg Documented by: Atorvastatin Calcium (Atorvastatin Calcium 10 Mg Tablet) 10 mg PO BEDTIME [facility] Last Admin: 02/19/21 20:38 Dose: 10 mg Documented by: Baclofen (Baclofen 10 Mg Tablet) 15 mg PO TID [facility] Last Admin: 02/20/21 08:01 Dose: 15 mg Documented by: Bisacodyl (Bisacodyl 5 Mg Tablet.Dr) 5 mg PO DAILY PRN PRN Reason: constipation Bupropion HCl (Bupropion Hcl Xl 150 Mg Tab.Er.24h) 450 mg PO DAILY [facility] Last Admin: 02/20/21 08:00 Dose: 450 mg Documented by: Clonidine HCl (Clonidine Hcl 0.1 Mg Tablet) 0.1 mg PO BID PRN; Protocol PRN Reason: anxiety Last Admin: 02/20/21 02:01 Dose: 0.1 mg Documented by: Divalproex Sodium (Divalproex Sodium Er 500 Mg Tab.Er.24h) 1,500 mg PO BEDTIME [facility] Last Admin: 02/19/21 20:36 Dose: 1,500 mg Documented by: Docusate Sodium (Docusate Sodium 100 Mg Capsule) 100 mg PO BID [facility] Last Admin: 02/20/21 08:00 Dose: 100 mg Documented by: Gabapentin (Gabapentin 600 Mg Tablet) 600 mg PO TID [facility] Last Admin: 02/20/21 08:02 Dose: 600 mg Documented by: Hydroxyzine HCl (Hydroxyzine Hcl 50 Mg Tablet) 50 mg PO TID [facility] Last Admin: 02/20/21 08:00 Dose: 50 mg Documented by: Lidocaine (Lidocaine 4 % Patch Adh..Patch) 1 patch TRANSDERMA DAILY [facility]; Pro tocol Last Admin: 02/19/21 11:43 Dose: 1 patch Documented by: Magnesium Hydroxide (Milk Of Magnesia 30 Ml Oral.Susp) 30 ml PO DAILY PRN PRN Reason: Constipation Methadone HCl (Methadone Hcl 20 Mg/2 Ml Oral.Conc) 140 mg PO DAILY [facility] Last Admin: 02/20/21 08:00 Dose: 140 mg Documented by: Mirtazapine (Mirtazapine 30 Mg Tablet) 30 mg PO BEDTIME CORIE Last Admin: 02/19/21 20:38 Dose: 30 mg Documented by: Naproxen (Naproxen 500 Mg Tablet) 500 mg PO BID PRN PRN Reason: pain Last Admin: 02/09/21 15:54 Dose: 500 mg Documented by: Nicotine Polacrilex (Nicotine Polacrilex 2 Mg Gum) 4 mg BUCCAL Q2H PRN PRN Reason: Nicotine Cravings Last Admin: 02/20/21 12:41 Dose: 4 mg Documented by: Nystatin (Nystatin Cream 15 Gm Tube) 1 appl TOPICAL BID PRN; Protocol PRN Reason: itching Last Admin: 02/18/21 13:41 Dose: 1 appl Documented by: Prazosin HCl (Prazosin Hcl 5 Mg Capsule) 5 mg PO BEDTIME CORIE Last Admin: 02/19/21 20:38 Dose: 5 mg Documented by: Prazosin HCl (Prazosin Hcl 1 Mg Capsule) 2 mg PO BEDTIME CORIE Last Admin: 02/19/21 20:37 Dose: 2 mg Documented by: Tamsulosin HCl (Tamsulosin Hcl 0.4 Mg Capsule) 0.4 mg PO BEDTIME CORIE Last Admin: 02/19/21 20:38 Dose: 0.4 mg Documented by: Trazodone HCl (Trazodone Hcl 50 Mg Tablet) 50 mg PO BEDTIME PRN PRN Reason: insomnia Last Admin: 02/20/21 02:00 Dose: 50 mg Documented by: Allergies Allergies Allergy/AdvReac Type Severity Reaction Status Date / Time shellfish derived Allergy Severe ANAPHAYLAXI Verified 08/04/20 22:58 [SHELLFISH DERIVED] A Assessment & Plan Assessment & Plan (1) MDD (major depressive disorder), recurrent episode, severe: Qualifiers: Psychotic features: without psychotic features Qualified Code(s): F33.2 - Major depressive disorder, recurrent severe without psychotic features Status: Chronic Code(s): F33.2 - Major depressive disorder, recurrent severe without psychotic features (2) PTSD (post-traumatic stress disorder): Status: Chronic Code(s): F43.10 - Post-traumatic stress disorder, unspecified (3) Opioid use disorder, mild, in early remission, on maintenance therapy: Status: Chronic Code(s): F11.11 - Opioid abuse, in remission Assessment and Plan: Guillermo is a 35-year-old male with history of depression, PTSD, chronic SI, substance abuse, opiate dependent on methadone. He has multiple inpatient psych admissions for relapse, SI, depression, and mood dysregulation. He has chronic homelessness with minimal family support, financial stress. Hx of non-adherence with follow up outpatient appointments. PLAN- increase prazosin and remeron 02/14. 1. Continue MAT, on Methadone 140 mg 2. Restarted remeron 7.5 mg QHS for insomnia, increased to 15 mg as of 02/14. 3. Continue Gabapentin 600 mg TID for pain, anxiety, mood 4. Continue Depakote 1500 mg QHS for mood regulation, VPA level pending 5. Continue abilify 15 mg QAM for mood regulation 6. Continue vistaril 50 mg tid for anxiety 7. Increased bupropion to XL 300 mg QAM for sx of depression due to reported benefit, monitor for activating SE 8. COntinued Prazosin at 5 mg QHS for hyperarousal, PTSD; dosing increased to 5 mg QHS as of 02/14. may need 8-10 mg. 9. Continue Clonidine 0.1 mg BID PRN for withdrawal sx Monitor response to medications. Monitor for safety in the milieu. Discharge on stabilization. Patient seen. Chart reviewed. Discussed with team.? ?? 02/11/21: Continue current plan of care. Pt asks for anxiety meds, however, regime is well supplied with several agents. Will focus on behavioral/coping interventions. 02/12/21: Coverage: Continue current plan of care. 02/13/21: Increased Wellbutrin XL to 450 mg daily. Monitor for side effects of anxiety and agitation. 02/14/21: increased remeron to 15 and prazosin to 5. Weekend coverage: Pt advocated to increase baclofen to 15 mg due to chronic pain sx and hopes this well help with urges to use. Will trial an increase, reviewed risks and benefits. Will increase prazosin to 7 mg to target sx of nightmares, PTSD related, will monitor BP. Continue wellbutrin XL at 450 mg QAM to target sx of depression. Greater than 50% of the session was spent on counseling and/or coordination of care Reason for contiued inpatient stay Substantial Risk for: stable for discharge
[2021-02-20 21:47] VITALS: BP 123/67; PULSE 74; TEMP 36.4
[2021-02-20] MEDS: Divalproex Sodium ER 500 MG TAB.ER.24H 1500 MG PO (21:54)
[2021-02-20 21:55] VITALS: BP 123/67; PULSE 74
[2021-02-20] MEDS: Prazosin HCL 1 MG CAPSULE 2 MG PO (21:55)
[2021-02-20] MEDS: Prazosin HCL 5 MG CAPSULE PO (21:55)
[2021-02-20] MEDS: Atorvastatin Calcium 10 MG TABLET PO (21:56)
[2021-02-20] MEDS: Tamsulosin HCL 0.4 MG CAPSULE PO (21:56)
[2021-02-20] MEDS: Mirtazapine 30 MG TABLET PO (21:57)
[2021-02-21] MEDS: Nicotine Polacrilex 2 MG GUM 4 MG BUCCAL ×2 (01:50→08:48)
[2021-02-21 06:00] VITALS: BP 155/80; PULSE 90; RESP 18; TEMP 36.6; O2SAT 98
[2021-02-21] MEDS: hydrOXYzine HCL 50 MG TABLET PO (08:04)
[2021-02-21] MEDS: Baclofen 10 MG TABLET 15 MG PO (08:04)
[2021-02-21] MEDS: Docusate Sodium 100 MG CAPSULE PO (08:04)
[2021-02-21] MEDS: methADONE HCl 20 MG/2 ML ORAL.CONC 140 MG PO (08:04)
[2021-02-21] MEDS: Gabapentin 600 MG TABLET PO (08:04)
[2021-02-21] MEDS: Lidocaine 4 % Patch ADH..PATCH 1 PATCH TRANSDERMA (08:05)
[2021-02-21] MEDS: buPROPion HCl XL 150 MG TAB.ER.24H 450 MG PO (08:05)
[2021-02-21] MEDS: ARIPiprazole 15 MG TABLET PO (08:05)
--- NOTE | 2021-02-21 11:08 | P.DS_ITS ---
DS: Providers Provider Date of Service: 02/21/21 Date of admission: 02/09/21 16:20 Primary care physician: Unknown Physician DS: Diagnosis Discharge Diagnosis (1) MDD (major depressive disorder), recurrent episode, severe: Status: Chronic (2) PTSD (post-traumatic stress disorder): Status: Chronic (3) Opioid use disorder, mild, in early remission, on maintenance therapy: Status: Deleted DS: Medications Discharge Medications Home Medications: Home Medications Medication Instructions Recorded Confirmed atorvastatin 10 mg tablet 1 tab PO BEDTIME 02/09/21 02/09/21 tamsulosin 0.4 mg capsule 1 cap PO BEDTIME 02/09/21 02/09/21 Previous Rx's Medication Instructions Recorded methadone 10 mg/mL oral 140 mg PO DAILY #0 ml 12/19/20 concentrate (Methadose) aripiprazole 15 mg tablet 15 mg PO DAILY #30 tab 02/21/21 baclofen 10 mg tablet 20 mg PO TID #60 tab 02/21/21 bupropion HCl 150 mg 24 hr tablet, 450 mg PO DAILY #45 tab 02/21/21 extended release clonidine HCl 0.1 mg tablet 0.1 mg PO BID PRN #60 tab 02/21/21 divalproex 500 mg tablet,extended 1,500 mg PO BEDTIME #90 tab 02/21/21 release 24 hr docusate sodium 100 mg capsule 100 mg PO BID #60 cap 02/21/21 gabapentin 600 mg tablet 600 mg PO TID #90 tab 02/21/21 hydroxyzine HCl 50 mg tablet 50 mg PO TID #45 tab 02/21/21 lidocaine 4 % topical patch 1 patch TRANSDERMAL DAILY #15 ea 02/21/21 (Lidocaine Pain Relief) mirtazapine 30 mg tablet 30 mg PO BEDTIME #30 tab 02/21/21 nicotine (polacrilex) 2 mg gum 4 mg BUCCAL Q2H PRN #20 ea 02/21/21 prazosin 2 mg capsule 2 mg PO BEDTIME #30 cap 02/21/21 prazosin 5 mg capsule 5 mg PO BEDTIME #15 cap 02/21/21 trazodone 50 mg tablet 50 mg PO BEDTIME PRN #15 tab 02/21/21 Mental Status Exam Mental Status Exam Narrative: Appearance: casually groomed, fair hygiene in NAD Behavior:cooperative psychomotor:no agitation or retardation noted Speech:clear, normal rate/rhythm/volume, spontaneous Thought process:linear Thought content:no signs of psychosis, future oriented, wanting to be discharge Mood: alright Affect: brighter SI:none HI:none VH/AH:none expressed Delusions:none Insight/judgment:fair x 2. Memory/cog: alert, oriented x 3. grossly intact to conversational testing. DS: Summary Hospital Course Hospital Course: Subjective Notes: Thomas Warning and Conditional Voluntary Healthcare Proxy: No Guardianship: No Medical Problems Affecting Mental Status: No Narrative: Guillermo is a 35-year-old male with history of depression, PTSD, chronic SI, substance abuse, opiate dependence on methadone. He presented to [facility] on 02/09/21 after calling PD reporting SI with plan to OD on illicit drugs or lay on train tracks. He cut himself on the right wrist using socorro wire, no sutures required. Recently left [facility] after 2 [facility], stated there were ?Too many rules.? Currently homeless, relapsed after his departure from [facility]. Utox positive for opiates, fentanyl, and cocaine. He is chronically homeless and has been staying at his mom?s home a few days a week. He had a follow up appointment with [facility] in December but missed it, reported poor adherence with his medications. Stressors include lack of supports, financial stress, homelessness, recent break up with his gf.? Denies withdrawal sx, on MAT (methadone maintenance).? I evaluated the pt this evening and upon inquiry he reports his ?depression is bad, I dont know how to explain it.? Sx include ?I just stay to myself, I dont talk to anybody,? ?I sleep a lot, sometimes im laying in bed for hours.? Says his anxiety comes and goes, has sx of stress related paranoia that people are going to harm him, ?my mind play tricks on me.? Says he wakes up from sleep, hyperaroused, ?I freak out sometimes.? Reports adherence with prazosin 5 mg QHS, says it helps with nightmares, otherwise he is ?waking up in middle of night screaming and punching.? Denies AH but says lately he is seeing shadows. Says his medications are working ?okay? but that his baclofen is supposed to be 10 mg TID (pharmacy records indicate BID). Says ?im in pain,? back and left leg pain are chronic, some days worse than others. Says he has been adherent with wellbu jovi SR 200 mg, ?that one helps to keep me active, gives me a little motivation.? Stopped taking prozac, ?that wasn?t working for me, radha taken that for a long time and its like taking nothing.? Has not been on remeron but says he would like to restart it for sleep and mood sx. Denies hx of manic or hypomanic episodes, says he feels ?miserable? when he doesn?t sleep. Denies SI/SIB upon inquiry, says he feels safe. Denies agitation or assaultive ideation. Past Psychiatric History: -Recent admission to [facility] 12/09/20-12/18/20 due to intentional OD on heroin/ cocaine as a suicidal gesture, increased depression. Precipitating fx included argument with his mom. -Has hx of multiple psych admissions due to SI, depression, polysubstance use. Multiple suicidal gestures by intentional overdoses on medications. Hx of SIB, has cut himself requiring sutures -No current OP providers, hx of not following up with referrals or attending appointments -Past med trials include: Remeron, Cymbalta, prozac, Sertraline, Topamax, Lyrica, Atarax, Trazodone, duloxetine, diazepam, trileptal.? HOSPITAL COURSE On the unit, pt was admitted on a CV and placed on 15 minutes checks for safety. Pt reported depressed mood, anhedonia, passive SI. He reported significant guilt related to pain cause to his mother as he has struggled with his recevery. We discussed risks, benefits and alternative treatment options. Pt reports wellbutrin was helpful for depression and wanted to continue this medications. He was also continued on seroquel, gabapentin, depakote and wellbutrin. Pt had been in [facility] program for about 2 months until recent relapsed. His affect gradually brighten. He reported less symptoms of depression, which he attributed to the fact that his mother's medical condition is worsening, end sta ge renal failure. He reported improved sleep and appetite. He denied SI/HI several days prior to discharge. He agreed to continue OP psychiatric treatment. He was continued on methadone. He declined referrals back to [facility]. There were no incidences of disruptive behaviors nor use of restraints. Status at Discharge Cognitive/behavioral status at discharge: Pt with brighter affect. Pt is increasingly more future oriented in that he is looking forward to see his mother and brother. He denies SI/HI. He reports decreased symptoms of depression and more hopeful about his recovery. No signs of aggression towards self or others. Functional status at discharge: independent ambulation Overall status at discharge: patient is progressing back to baseline Time Spent with Patient Time attestation: Total time spent providing and/or coordinating discharge services: Discharge Plan Discharge Patient Disposition: Home, Self-Care Discharge Diagnosis: MDD, recurrent, moderate OPioid Use Disorder Referrals: Barbara De Leon (therapy intake) [Other] - 02/22/21 9:00 am (Appointment is in office. If you miss this appointment, your psychiatry appointments will be automatically cancelled, please make sure to call ahead if you need to reschedule) Zahida Apodaca (psychiatrist) [Other] - 03/22/21 11:30 am (Appointment is in office) Zahida Apodaca (psychiatrist) [Other] - 04/19/21 9:20 am (Telehealth appointment) Physician,Unknown J [Primary Care Provider] - 1 Week Discharge Medications: New baclofen 10 mg Tablet 20 mg PO TID Qty: 60 RF: 0 nicotine (polacrilex) 2 mg Gum 4 mg buccal Q2H PRN (Reason: Nicotine Cravings) Qty: 20 RF: 0 clonidine HCl 0.1 mg Tablet 0.1 mg PO BID PRN (Reason: anxiety) Qty: 60 RF: 0 prazosin 2 mg capsule 2 mg PO BEDTIME Qty: 30 RF: 0 gabapentin 600 mg Tablet 600 mg PO TID Qty: 90 RF: 0 trazodone 50 mg Tablet 50 mg PO BEDTIME PRN (Reason: insomnia) Qty: 15 RF: 1 hydroxyzine HCl 50 mg Tablet 50 mg PO TID Qty: 45 RF: 1 prazosin 5 mg Capsule 5 mg PO BEDTIME Qty: 15 RF: 1 divalproex 500 mg Tablet Extended Release 24 Hr 1,500 mg PO BEDTIME Qty: 90 RF: 0 aripiprazole 15 mg Tablet 15 mg PO DAILY Qty: 30 RF: 0 bupropion HCl 150 mg Tablet Extended Release 24 Hr 450 mg PO DAILY Qty: 45 RF: 1 lidocaine [Lidocaine Pain Relief] 4 % Adhesive Patch,Medicated 1 patch transdermal DAILY Qty: 15 RF: 0 mirtazapine 30 mg Tablet 30 mg PO BEDTIME Qty: 30 RF: 0 docusate sodium 100 mg Capsule 100 mg PO BID Qty: 60 RF: 0 Continued methadone [Methadose] 10 mg/mL Concentrate 140 mg PO DAILY Qty: 0 RF: 0 atorvastatin 10 mg tablet 1 tab PO BEDTIME RF: 0 tamsulosin 0.4 mg capsule 1 cap PO BEDTIME RF: 0 Discontinued clonidine HCl 0.1 mg tablet 1 tab PO BID PRN (Reason: anxiety) RF: 0 gabapentin 600 mg tablet 1 tab PO TID RF: 0 hydroxyzine pamoate 50 mg capsule 1 cap PO TID RF: 0 prazosin 5 mg capsule 1 cap PO BEDTIME RF: 0 trazodone 100 mg tablet 1 tab PO DAILY RF: 0 nicotine (polacrilex) 4 mg gum 4 mg PO Q2H PRN (Reason: Nicotine Cravings) RF: 0 baclofen 10 mg tablet 1 tab PO BID RF: 0 divalproex 500 mg tablet extended release 24 hr 3 tab PO BEDTIME RF: 0 bisacodyl 5 mg tablet,delayed release (DR/EC) 1 tab PO DAILY PRN (Reason: constipation) RF: 0 risperidone 0.5 mg tablet 1 tab PO BEDTIME RF: 0 naproxen 500 mg tablet 1 tab PO BID PRN (Reason: pain) RF: 0 bupropion HCl 200 mg tablet sustained-release 12 hr 1 tab PO DAILY RF: 0 aripiprazole 15 mg tablet 1 tab PO DAILY RF: 0 Discharge Orders: Discharge Order (Routine); Ordered 02/21/21 Ordered By: Lilian Singletary Diet: regular diet Activity on Discharge: As tolerated Stand Alone Forms: Patient Portal Discharge page, Community Support, Substance Abuse Outpt Detox Care Plan Goals: 1. Maintain Mood 2. No SI/HI 3. Harm reduction- take home narcan Health Concerns: 1. Follow up with PCP Plan of Treatment: 1. Take medications as prescribed 2. Go to nearest ED or call 911 in event of emergency 3. Harm reduction Assessment: Pt presents with brighter affect, no SI/HI. Increasingly more future oriented. Hopeful but did declined to return to [facility] to continue substance use. Discharge Date/Time: 02/21/21 13:08
--- NOTE | 2021-02-21 16:51 | PC.NURSE ---
[facility] notified of patients discharge from [facility]. They are aware of patients Methadone dose, that he will be there tomorrow morning. Patient also given letter at time of discharge.
== END 2021-02-21 13:08 | disposition home or self-care (01) | DRG 751 ==
LOC: HO.ED 02-09 00:45 → HO.PADLT16 02-09 16:26
PROVIDERS: Nurse Practitioner Family; Registered Nurse; Admitting Provider Psychiatry & Neurology Psychiatry; Emergency Provider Internal Medicine; Visit Provider Social Worker
DX: F33.2 Major depressive disorder, recurrent severe without psychotic features (principal); R45.851 Suicidal ideations; F11.20 Opioid dependence, uncomplicated; F14.20 Cocaine dependence, uncomplicated; F43.10 Post-traumatic stress disorder, unspecified; F17.210 Nicotine dependence, cigarettes, uncomplicated; Z20.822 Contact with and (suspected) exposure to COVID-19; Z71.6 Tobacco abuse counseling; Z59.02 Unsheltered homelessness; Z79.899 Other long term (current) drug therapy
CPT/HCPCS: 36415; 80053; 80164; 80307; 85025; 87635; 93005; 99285

== ENCOUNTER 2021-03-31 08:36 | Inpatient (IN) | payer MEDICAID, SELFPAY ==
--- NOTE | ~2021-03-31 | US_ITS ---
EXAMINATION: US VENOUS ULTRASOUND WITH DOPPLER LOWER EXTREMITY, LEFT CLINICAL INFORMATION: Pain left lower extremity. Assess for occult DVT COMPARISON: Left leg venous ultrasound with Doppler 11/18/2018 and 08/14/2016 TECHNIQUE: Ultrasound of the deep veins is performed from the hip to the calf with compression sonography and color and pulse Doppler assessment. Spectral analysis with color-flow imaging is performed. FINDINGS: There is normal venous compression and respiratory variation and augmented flow. The visualized common femoral vein, superficial femoral vein, profunda femoral vein, popliteal vein, and the trifurcation region shows no evidence of deep venous thrombosis. No popliteal fossa cyst demonstrated. US/US venous duplex LE LT IMPRESSION: No DVT demonstrated in the left lower extremity.
--- NOTE | ~2021-03-31 | XR_ITS ---
EXAMINATION: XR ELBOW, LEFT CLINICAL INFORMATION: Pain and swelling COMPARISON: None TECHNIQUE: AP, lateral, and oblique views of the left elbow. FINDINGS: The bones and soft tissues are normal. No fracture or joint effusion. Alignment is anatomic. Joint spaces are maintained. XR/XR elbow LT 2V IMPRESSION: Unremarkable left elbow exam.
--- NOTE | ~2021-03-31 | XR_ITS ---
EXAMINATION: XR ANKLE, LEFT XR ANKLE, LEFT CLINICAL INFORMATION: Fall, trauma, pain COMPARISON: Radiographs left foot 12/20/2020, left lower leg 11/18/2018. TECHNIQUE: 2 views left ankle, 2 views left foot, and a crosstable lateral view of the combined left ankle and foot are obtained for a total of 5 views. FINDINGS: The ankle shows no fracture or dislocation. The malleoli are intact and the ankle mortise is symmetric. Talar dome shows no osteochondral lesion. No ankle joint narrowing or erosive change. The midfoot and forefoot shows no fracture or dislocation or arthropathy. XR/XR ankle LT min 3V IMPRESSION: No fracture or dislocation.
--- NOTE | ~2021-03-31 | XR_ITS ---
EXAMINATION: XR ANKLE, LEFT XR ANKLE, LEFT CLINICAL INFORMATION: Fall, trauma, pain COMPARISON: Radiographs left foot 12/20/2020, left lower leg 11/18/2018. TECHNIQUE: 2 views left ankle, 2 views left foot, and a crosstable lateral view of the combined left ankle and foot are obtained for a total of 5 views. FINDINGS: The ankle shows no fracture or dislocation. The malleoli are intact and the ankle mortise is symmetric. Talar dome shows no osteochondral lesion. No ankle joint narrowing or erosive change. The midfoot and forefoot shows no fracture or dislocation or arthropathy. XR/XR foot LT min 3V IMPRESSION: No fracture or dislocation.
[2021-03-31 08:45] VITALS: BP 118/81; PULSE 82; O2SAT 96
[2021-03-31 09:39] VITALS: BP 115/79; PULSE 72; RESP 16; TEMP 36.6; O2SAT 96; BMI 29.5
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
--- NOTE | 2021-03-31 10:53 | PC.NURSE ---
pt is a hard stick, unable to gane iv access
[2021-03-31 11:41] LABS: MANUAL DIFF FLAG NO
[2021-03-31 11:45] LABS: Basophils Percent Auto 0.2 % (0-2); Eosinophils Absolute Auto 0.2 X10*3/uL (0.0-0.4); Eosinophils Percent Auto 1.3 % (0-4); Hematocrit 38.2 % (42.0-52.0); Hemoglobin 12.7 g/dl (14.0-18.0); Imm Gran Abs Auto 0.08 X10*3/uL (0.00-0.03); Imm Gran Pct Auto 0.6 % (0.0-0.4); Lymphocytes Absolute Auto 2.4 X10*3/uL (1.2-4.9); Lymphocytes Percent Auto 17.8 % (20-40); Mean Corpuscular HGB Conc 33.2 g/dl (31.0-36.0); Mean Corpuscular Hemoglobin 27.8 pg (27.0-33.0); Mean Corpuscular Volume 83.6 fL (80.0-98.0); Mean Platelet Volume 9.3 fL (9.4-12.4); Monocytes Absolute Auto 1.2 X10*3/uL (0.1-1.2); Monocytes Percent Auto 9.1 % (2-11); Neutrophils Absolute Auto 9.6 x10*3/uL (2.0-8.3); Platelet Count 304 X10*3/uL (160-400); Red Blood Count 4.57 X10*6/uL (4.60-5.80); Red Cell Distribution Width 13.4 % (11.0-16.0); White Blood Count 13.6 X10*3/uL (4.8-10.8)
[2021-03-31] MEDS: Piperacillin Sodium/Tazobactam 3.375 GM in 0.9 % Sodium Chloride 50 ML IV ×2 (11:47→19:01)
[2021-03-31] MEDS: 0.9 % Sodium Chloride 500 ML IV (11:48)
[2021-03-31 12:02] LABS: COVID-19 Test Negative (Negative)
[2021-03-31 12:03] LABS: Alanine Aminotransferase 73 U/L (0-40); Albumin Level 3.4 g/dL (3.5-5.0); Alkaline Phosphatase 81 U/L (39-117); Anion Gap 12 (12-20); Aspartate Amino Transferase 82 U/L (5-37); Bilirubin Direct 0.2 mg/dL (0.0-0.5); Bilirubin Total 0.3 mg/dL (0.0-1.0); Blood Urea Nitrogen 11 mg/dL (9-16); Calcium 8.9 mg/dL (8.4-10.2); Carbon Dioxide 27 mmol/L (22-29); Chloride 103 mmol/L (96-108); Creatinine Clr Calc Pharmacy 145.7; Estimated Glomerular Filt Rate > 60; Glucose Random 91 mg/dL (60-115); Magnesium 2.1 mg/dL (1.6-2.6); Potassium 3.6 mmol/L (3.3-5.1); Sodium 138 mmol/L (135-145); Total Protein 6.5 g/dL (6.5-8.0)
[2021-03-31 12:10] LABS: B Type Natriuretic Peptide 19 pg/mL (<100)
[2021-03-31 12:23] LABS: Lactic Acid 1.4 mmol/L (0.5-2.0)
[2021-03-31 12:34] VITALS: BP 122/57; PULSE 62; RESP 16; O2SAT 96
[2021-03-31] MEDS: 0.9 % Sodium Chloride 1,000 ML 999 ML IV (12:45)
[2021-03-31] MEDS: vancomycin HCL 1,000 MG in 0.9 % Sodium Chloride 250 ML 270 MG IV (13:41)
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
--- NOTE | 2021-03-31 14:51 | PHA.PROG ---
Admission Date/Time: March 31, 2021 14:15 Indication: skin/skin structure Weight in k.718 kg Adjusted body weight in Kg: [place] body weight in Kg: Obesity Dosing Indication % IBW: Serum Creatinine - Last 168 Hours 03/31/21 11:33 Creatinine 0.78 Estimated CrCl and GFR - Last 168 Hours 03/31/21 11:33 Estim Creat Clear Calc 145.7 Estimated GFR > 60 Vancomycin Loading Dose: 1000mg Current Vancomycin Dosing Regimen: 1250mg IV Q12H Vancomycin Monitoring using AUC goal of 400 - 600 range with trough as surrogate marker: AUC 460, TROUGH 13.7 Date and Time for next Vancomycin Level to be drawn: DRAW 04/02 @0000 Pharmacist Comments on Vancomycin Plan: Vancomycin dosing will take advantage of [employer] as a clinical decision support tool that uses Bayesian modeling to calculate individual patient's pharmacokinetic parameters and forecast the patient's drug concentration time course with the target goal AUC 24 range of 400 - 600 mg/L/hr.
[2021-03-31] MEDS: Enoxaparin Sodium 40 MG/0.4 ML SYRINGE SUBCUT (14:56)
--- NOTE | 2021-03-31 15:04 | PC.NURSE ---
iv line infiltrated, left arm swollen/hard to touch, fluids stopped paty pa at bedside attempting another access
[2021-03-31 15:38] VITALS: BP 111/56; PULSE 62; RESP 18; TEMP 37.1; O2SAT 96
--- NOTE | 2021-03-31 15:45 | PC.NURSE ---
dr lizarraga at bedside inserting a ej line on the left side, pt tolerated the procedure well
--- NOTE | 2021-03-31 15:51 | PHA.MEDREC ---
Med rec complete, patient is not a good historian but confirmed that he believes these recently filled medications he is still supposed to be taking. He states he has not had any medications for at least 2 days. He confirms his methadone dose is 140 mg and he has received this dose at previous admissions. Nursing has been unable to confirm methadone dose with clinic today. Pharmacy Consult ? Medication Reconciliation Pharmacy has completed the medication reconciliation.
[2021-03-31] MEDS: methADONE HCl 20 MG/2 ML ORAL.CONC 140 MG PO (16:33)
[2021-03-31] MEDS: 0.9 % Sodium Chloride Flush 3 ML SYRINGE IVFLUSH (16:34)
[2021-03-31] MEDS: Lactated Ringers 1,000 ML 100 ML IVCONT (16:48)
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
--- NOTE | 2021-03-31 21:37 | MHC.CM.PN ---
CM attempted to meet with admitted patient with bed assignment 485. Pt unable to stay awake for CM interview, despite several attempts to engage patient in conversation. No IMM necessary. CM will need to meet with patient when more awake. CM to follow for d/c needs.
[2021-03-31 22:22] LABS: Amphetamine Screen Urine Not Detected (Not Detect); Barbiturates, Urine Not Detected (Not Detect); Benzodiazepines Screen Urine Not Detected (Not Detect); Cannabinoid Screen Urine POSITIVE (Not Detect); Cocaine Screen Urine POSITIVE (Not Detect); Fentanyl, urine POSITIVE (Not Detect); Opiate Screen Urine POSITIVE (Not Detect); Phencyclidine Screen Urine Not Detected (Not Detect)
[2021-03-31 22:43] VITALS: BMI 35.8
[2021-03-31 22:52] VITALS: BP 119/60; PULSE 55; RESP 16; TEMP 36.8; O2SAT 94
[2021-03-31 23:28] VITALS: BP 117/56; PULSE 69; RESP 18; TEMP 36.8; O2SAT 95
[2021-04-01] MEDS: Piperacillin Sodium/Tazobactam 3.375 GM in 0.9 % Sodium Chloride 50 ML IV ×4 (00:43→18:54)
[2021-04-01] MEDS: vancomycin HCL 1,250 MG in 0.9 % Sodium Chloride 250 ML 166.67 MG IV ×2 (00:43→13:52)
[2021-04-01] MEDS: Lactated Ringers 1,000 ML 100 ML IVCONT ×2 (06:04→18:54)
[2021-04-01 08:00] VITALS: BP 100/58; PULSE 61; RESP 18; TEMP 37.1; O2SAT 95
[2021-04-01] MEDS: 0.9 % Sodium Chloride Flush 3 ML SYRINGE IVFLUSH ×2 (10:01→15:56)
[2021-04-01] MEDS: Acetaminophen 325 MG TABLET 650 MG PO (10:01)
[2021-04-01 12:04] LABS: MANUAL DIFF FLAG NO
[2021-04-01 12:07] LABS: Basophils Percent Auto 0.2 % (0-2); Eosinophils Absolute Auto 0.2 X10*3/uL (0.0-0.4); Eosinophils Percent Auto 3.1 % (0-4); Hematocrit 35.4 % (42.0-52.0); Hemoglobin 11.3 g/dl (14.0-18.0); Imm Gran Abs Auto 0.04 X10*3/uL (0.00-0.03); Imm Gran Pct Auto 0.7 % (0.0-0.4); Lymphocytes Absolute Auto 1.6 X10*3/uL (1.2-4.9); Lymphocytes Percent Auto 27.2 % (20-40); Mean Corpuscular HGB Conc 31.9 g/dl (31.0-36.0); Mean Corpuscular Hemoglobin 26.8 pg (27.0-33.0); Mean Corpuscular Volume 84.1 fL (80.0-98.0); Mean Platelet Volume 9.2 fL (9.4-12.4); Monocytes Absolute Auto 0.8 X10*3/uL (0.1-1.2); Neutrophils Absolute Auto 3.2 x10*3/uL (2.0-8.3); Neutrophils Percent Auto 55.8 % (45-73); Platelet Count 253 X10*3/uL (160-400); Red Blood Count 4.21 X10*6/uL (4.60-5.80); Red Cell Distribution Width 13.7 % (11.0-16.0); White Blood Count 5.8 X10*3/uL (4.8-10.8)
[2021-04-01 12:23] LABS: Anion Gap 11 (12-20); Blood Urea Nitrogen 7 mg/dL (9-16); Calcium 8.4 mg/dL (8.4-10.2); Carbon Dioxide 26 mmol/L (22-29); Chloride 110 mmol/L (96-108); Creatinine Clr Calc Pharmacy 168.6; Estimated Glomerular Filt Rate > 60; Glucose Random 123 mg/dL (60-115); Potassium 3.7 mmol/L (3.3-5.1); Sodium 143 mmol/L (135-145)
[2021-04-01] MEDS: methADONE HCl 20 MG/2 ML ORAL.CONC 140 MG PO (13:17)
[2021-04-01] MEDS: Enoxaparin Sodium 40 MG/0.4 ML SYRINGE SUBCUT (13:52)
[2021-04-01 13:54] VITALS: BP 104/54; PULSE 59; RESP 16; TEMP 36.9; O2SAT 96
--- NOTE | 2021-04-01 14:41 | MHC.CM.PN ---
Met with patient. he lives with his mother, independent. [facility] for methadone and reports he was last there 2 days ago, had a relapse heroin use. Educated on HCP, pateint declined to complete at this time, left form for patient to review. Reports he may need help with ride home, anticipate no other needs on dc.
[2021-04-01 15:10] VITALS: BP 103/59; PULSE 55; RESP 20; TEMP 36.8; O2SAT 96
--- NOTE | 2021-04-01 15:49 | HO.PM.IMPN ---
Subjective Subjective Date of Service: 04/01/21 Interval History: no acute issues overnight. Methadone dose Review of Systems denies chest pain Denies shortness of breath Denies nausea vomiting diarrhea Physical Exam Vital Signs: Vital Signs: Last Vital Signs Temp 98.3 F 04/01/21 15:10 Pulse 55 04/01/21 15:10 Resp 20 04/01/21 15:10 BP 103/59 L 04/01/21 15:10 Pulse Ox 96 04/01/21 15:10 Body Mass Index 35.8 Const: Other: awake alert oriented x3 no acute distress Resp: Other: clear to auscultation bilaterally n Cardio: Other: no S4; positive S1-S2; no S3 murmurs or g GI: Other: soft nontender nondistended with normoactive bowel sounds Neuro: Other: awake alert oriented x3; motor 5/5 all extremities; sensation is intact; cognition appropriate Extrem: Other: left lower extremity with erythema just inferior to left tibia plateau down to malleoli Objective Data Active Medications Acetaminophen (Acetaminophen 325 Mg Tablet) 650 mg PO Q6H PRN PRN Reason: Pain, Mild (Pain Scale 1-3) Last Admin: 04/01/21 10:01 Dose: 650 mg Documented by: ROSE Enoxaparin Sodium (Enoxaparin Sodium 40 Mg/0.4 Ml Syringe) 40 mg SUBCUT Q24H [facility] Last Admin: 04/01/21 13:52 Dose: 40 mg Documented by: ROSE Piperacillin Sod/Tazobactam (Sod 3.375 gm/ Sodium Chloride) 50 mls @ 100 mls/hr IV Q6H [facility] Last Infusion: 04/01/21 13:02 Dose: 0 mls/hr Documented by: ROSE Vancomycin HCl 1,250 mg/ (Sodium Chloride) 250 mls @ 166.667 mls/hr IV Q12H [facility] Last Admin: 04/01/21 13:52 Dose: 166.67 mls/hr Documented by: ROSE Lactated Ringer's (Lr) 1,000 mls @ 100 mls/hr IVCONT .Q10H [facility] Last Admin: 04/01/21 12:04 Dose: Not Given Documented by: ROSE Non-Admin Reason: IV Running Methadone HCl (Methadone Hcl 20 Mg/2 Ml Oral.Conc) 140 mg PO DAILY [facility] Last Admin: 04/01/21 13:17 Dose: 140 mg Documented by: ROSE Pharmacy Consult (Consult Rx Perform Med Rec) 1 each MISCELLANE ONCE PRN PRN Reason: Consult order Pharmacy Consult (Consult Rx Vancomycin Dosing) 1 each MISCELLANE DAILY PRN PRN Reason: Consult order Sodium Chloride (0.9 % Sodium Chloride Flush 3 Ml Syringe) 3 ml IVFLUSH QSHIFT [facility] Last Admin: 04/01/21 10:01 Dose: 3 ml Documented by: ROSE Labs CBC & Chem 7: 04/01/21 12:00 04/01/21 12:00 Labs: Laboratory Results - last 24 hr 03/31/21 04/01/21 04/01/21 21:56 12:00 12:00 MCV 84.1 MCH 26.8 L MCHC 31.9 RDW 13.7 Plt Count 253 MPV 9.2 L Immature Gran % (Auto) 0.7 H Neut % (Auto) 55.8 Lymph % (Auto) 27.2 [place] % (Auto) 13.0 H Eos % (Auto) 3.1 Baso % (Auto) 0.2 Lymph # (Auto) 1.6 [place] # (Auto) 0.8 Eos # (Auto) 0.2 Baso # (Auto) 0.0 Abs Immat Gran (auto) 0.04 H Absolute Neuts (auto) 3.2 Absolute Nucleated RBC 0.000 Nucleated RBC % (auto) 0.0 Anion Gap 11 L Estim Creat Clear Calc 168.6 Estimated GFR > 60 Random Glucose 123 H D Calcium 8.4 Urine Opiates Screen POSITIVE H Urine Fentanyl Screen POSITIVE H Ur Barbiturates Screen Not Detected Ur Phencyclidine Scrn Not Detected Ur Amphetamines Screen Not Detected U Benzodiazepines Scrn Not Detected Urine Cocaine Screen POSITIVE H U Marijuana (THC) Screen POSITIVE H 04/01/21 12:00 MCV MCH MCHC RDW Plt Count MPV Immature Gran % (Auto) Neut % (Auto) Lymph % (Auto) [place] % (Auto) Eos % (Auto) Baso % (Auto) Lymph # (Auto) [place] # (Auto) Eos # (Auto) Baso # (Auto) Abs Immat Gran (auto) Absolute Neuts (auto) Absolute Nucleated RBC Nucleated RBC % (auto) Anion Gap Estim Creat Clear Calc Cancelled Estimated GFR Cancelled Random Glucose Calcium Urine Opiates Screen Urine Fentanyl Screen Ur Barbiturates Screen Ur Phencyclidine Scrn Ur Amphetamines Screen U Benzodiazepines Scrn Urine Cocaine Screen U Marijuana (THC) Screen Microbiology Microbiology Results: Microbiology 03/31/21 11:33 Blood Culture - Preliminary Blood - Venous No growth after 24 hours. 03/31/21 11:33 Blood Culture - Preliminary Blood - Venous No growth after 24 hours. Assessment and Plan (1) Cellulitis: Status: Acute (2) Drug abuse, IV: Status: Acute (3) Rhabdomyolysis: Status: Acute Assessment and Plan: This is a 35 yo M with left lower leg cellulitis; improved compared to admit notes 1. LLE cellulitis > 50% of LLE Blood cultures negative thus far IV vancomcyin and zosyn monitor renal fucntion and vancomcyin trough 2. Rhabdomyolysis IVF, recheck tomorrow AM 3. Polysubstance abuse / chronic opiate dependence Methadone 140mg daily 4. Mood stable thus far Full Code DVT pptx, Lovenox Quality Stroke Does the patient have a stroke diagnosis?: No VTE Prior VTE?: No VTE Risk Level:: Medical - moderate - high VTE Device Contraindication: Treatment Not Indicated VTE Drug Contraindication: N/A - Med Ordered
[2021-04-01] MEDS: HYDROmorphone HCl 1 MG/ML SYRINGE IVPUSH (15:56)
[2021-04-01 23:06] VITALS: BP 122/62; PULSE 71; RESP 20; TEMP 36.4; O2SAT 93
[2021-04-02] MEDS: Piperacillin Sodium/Tazobactam 3.375 GM in 0.9 % Sodium Chloride 50 ML IV ×4 (00:07→19:04)
[2021-04-02] MEDS: 0.9 % Sodium Chloride Flush 3 ML SYRINGE IVFLUSH ×3 (00:10→18:03)
[2021-04-02 01:04] LABS: Vancomycin Trough 7.9 mcg/mL (10.0-20.0)
[2021-04-02] MEDS: vancomycin HCL 1,250 MG in 0.9 % Sodium Chloride 250 ML 166.67 MG IV (01:27)
[2021-04-02] MEDS: Lactated Ringers 1,000 ML 100 ML IVCONT (05:10)
--- NOTE | 2021-04-02 07:13 | HE.PHANOTE ---
Vancomycin Addemdem Vancomycin trough is subterapetuic at 7.9 with vancomycin 1250 mg Q12H. Will increase dose to 1500 mg Q12H with new expected AUC of 470 and trough of 12.7. Ivonne HodgesD
[2021-04-02 08:00] VITALS: BP 124/64; PULSE 54; RESP 18; TEMP 36.6; O2SAT 94
[2021-04-02] MEDS: methADONE HCl 20 MG/2 ML ORAL.CONC 140 MG PO (09:43)
[2021-04-02 10:55] LABS: MANUAL DIFF FLAG NO
[2021-04-02 10:57] LABS: Basophils Percent Auto 0.2 % (0-2); Eosinophils Absolute Auto 0.2 X10*3/uL (0.0-0.4); Eosinophils Percent Auto 2.4 % (0-4); Hematocrit 36.8 % (42.0-52.0); Imm Gran Abs Auto 0.04 X10*3/uL (0.00-0.03); Imm Gran Pct Auto 0.6 % (0.0-0.4); Lymphocytes Absolute Auto 1.9 X10*3/uL (1.2-4.9); Lymphocytes Percent Auto 31.1 % (20-40); Mean Corpuscular HGB Conc 32.6 g/dl (31.0-36.0); Mean Corpuscular Hemoglobin 27.6 pg (27.0-33.0); Mean Corpuscular Volume 84.6 fL (80.0-98.0); Mean Platelet Volume 9.5 fL (9.4-12.4); Monocytes Absolute Auto 0.6 X10*3/uL (0.1-1.2); Monocytes Percent Auto 10.1 % (2-11); Neutrophils Absolute Auto 3.5 x10*3/uL (2.0-8.3); Neutrophils Percent Auto 55.6 % (45-73); Platelet Count 281 X10*3/uL (160-400); Red Blood Count 4.35 X10*6/uL (4.60-5.80); Red Cell Distribution Width 13.3 % (11.0-16.0); White Blood Count 6.2 X10*3/uL (4.8-10.8)
[2021-04-02 11:15] LABS: Alanine Aminotransferase 60 U/L (0-40); Albumin Level 3.2 g/dL (3.5-5.0); Alkaline Phosphatase 67 U/L (39-117); Anion Gap 9 (12-20); Aspartate Amino Transferase 41 U/L (5-37); Bilirubin Total 0.3 mg/dL (0.0-1.0); Blood Urea Nitrogen 5 mg/dL (9-16); Calcium 9.2 mg/dL (8.4-10.2); Carbon Dioxide 29 mmol/L (22-29); Chloride 109 mmol/L (96-108); Creatinine Clr Calc Pharmacy 166.4; Estimated Glomerular Filt Rate > 60; Glucose Fasting 103 mg/dL (60-99); Potassium 3.9 mmol/L (3.3-5.1); Sodium 143 mmol/L (135-145); Total Protein 6.1 g/dL (6.5-8.0)
[2021-04-02] MEDS: vancomycin HCL 1,500 MG in 0.9 % Sodium Chloride 500 ML 333.33 MG IV (14:18)
[2021-04-02] MEDS: Enoxaparin Sodium 40 MG/0.4 ML SYRINGE SUBCUT (14:20)
[2021-04-02 15:06] VITALS: BP 130/70; PULSE 51; RESP 16; TEMP 36.9; O2SAT 97
[2021-04-02] MEDS: HYDROmorphone HCl 1 MG/ML SYRINGE IVPUSH (16:07)
--- NOTE | 2021-04-02 17:38 | HO.PM.IMPN ---
Subjective Subjective Date of Service: 04/18/21 Interval History: still with slight pain however redness has improved. Patient states able to bear weight without significant pain Review of Systems denies chest pain Denies shortness of breath Physical Exam Vital Signs: Vital Signs: Last Vital Signs Temp 98.4 F 04/02/21 15:06 Pulse 51 04/02/21 15:06 Resp 16 04/02/21 15:06 BP 130/70 04/02/21 15:06 Pulse Ox 97 04/02/21 15:06 Body Mass Index 35.8 Const: Other: awake alert oriented x3 no acute distress Resp: Other: clear to auscultation bilaterally n Cardio: Other: no S4; positive S1-S2; no S3 murmurs or g GI: Other: soft nontender nondistended with normoactive bowel sounds Neuro: Other: awake alert oriented x3; motor 5/5 all extremities; sensation is intact; cognition appropriate Extrem: Other: left lower extremity minimal along tibial ridge Objective Data Active Medications Acetaminophen (Acetaminophen 325 Mg Tablet) 650 mg PO Q6H PRN PRN Reason: Pain, Mild (Pain Scale 1-3) Last Admin: 04/01/21 10:01 Dose: 650 mg Documented by: ROSE Enoxaparin Sodium (Enoxaparin Sodium 40 Mg/0.4 Ml Syringe) 40 mg SUBCUT Q24H [facility] Last Admin: 04/02/21 14:20 Dose: 40 mg Documented by: ROSE Piperacillin Sod/Tazobactam (Sod 3.375 gm/ Sodium Chloride) 50 mls @ 100 mls/hr IV Q6H [facility] Last Infusion: 04/02/21 13:59 Dose: 0 mls/hr Documented by: ROSE Lactated Ringer's (Lr) 1,000 mls @ 100 mls/hr IVCONT .Q10H [facility] Last Admin: 04/02/21 05:10 Dose: 100 mls/hr Documented by: LEXX Vancomycin HCl 1,500 mg/ (Sodium Chloride) 500 mls @ 333.333 mls/hr IV Q12H [facility] Last Infusion: 04/02/21 16:11 Dose: 333.33 mls/hr Documented by: LIZ Methadone HCl (Methadone Hcl 20 Mg/2 Ml Oral.Conc) 140 mg PO DAILY [facility] Last Admin: 04/02/21 09:43 Dose: 140 mg Documented by: ROSE Pharmacy Consult (Consult Rx Perform Med Rec) 1 each MISCELLANE ONCE PRN PRN Reason: Consult order Pharmacy Consult (Consult Rx Vancomycin Dosing) 1 each MISCELLANE DAILY PRN PRN Reason: Consult order Sodium Chloride (0.9 % Sodium Chloride Flush 3 Ml Syringe) 3 ml IVFLUSH QSHIFT [facility] Last Admin: 04/02/21 09:43 Dose: 3 ml Documented by: ROSE Labs CBC & Chem 7: 04/03/21 08:07 04/03/21 08:07 Labs: Laboratory Results - last 24 hr 04/02/21 04/02/21 04/02/21 00:30 10:32 10:32 MCV 84.6 MCH 27.6 MCHC 32.6 RDW 13.3 Plt Count 281 MPV 9.5 Immature Gran % (Auto) 0.6 H Neut % (Auto) 55.6 Lymph % (Auto) 31.1 [place] % (Auto) 10.1 Eos % (Auto) 2.4 Baso % (Auto) 0.2 Lymph # (Auto) 1.9 [place] # (Auto) 0.6 Eos # (Auto) 0.2 Baso # (Auto) 0.0 Abs Immat Gran (auto) 0.04 H Absolute Neuts (auto) 3.5 Absolute Nucleated RBC 0.000 Nucleated RBC % (auto) 0.0 Anion Gap 9 L Estim Creat Clear Calc 166.4 Estimated GFR > 60 Fasting Glucose 103 H Calcium 9.2 D Total Bilirubin 0.3 AST 41 H D ALT 60 H Alkaline Phosphatase 67 Total Protein 6.1 L Albumin 3.2 L Vancomycin Trough 7.9 L Microbiology Microbiology Results: Microbiology 03/31/21 11:33 Blood Culture - Preliminary Blood - Venous No growth after 48 hours. 03/31/21 11:33 Blood Culture - Preliminary Blood - Venous No growth after 48 hours. Assessment and Plan (1) Cellulitis: Status: Resolved (2) Rhabdomyolysis: Status: Resolved Assessment and Plan: This is a 35 yo M with left lower leg cellulitis; improved compared to admit notes 1. LLE cellulitis > 50% of LLE Blood cultures negative thus far IV vancomcyin and zosyn improved; consider switch to orals and possible DC in a.m. 2. Rhabdomyolysis resolved 3. Polysubstance abuse / chronic opiate dependence Methadone 140mg daily 4. Mood stable thus far Full Code DVT pptx, Lovenox Quality Stroke Does the patient have a stroke diagnosis?: No VTE Prior VTE?: No VTE Risk Level:: Medical - moderate - high VTE Device Contraindication: Treatment Not Indicated VTE Drug Contraindication: N/A - Med Ordered
[2021-04-02] MEDS: Baclofen 10 MG TABLET PO (23:04)
[2021-04-02] MEDS: Gabapentin 600 MG TABLET PO (23:04)
[2021-04-02] MEDS: Divalproex Sodium ER 500 MG TAB.ER.24H 1500 MG PO (23:10)
[2021-04-03] MEDS: Piperacillin Sodium/Tazobactam 3.375 GM in 0.9 % Sodium Chloride 50 ML IV ×3 (00:57→12:18)
[2021-04-03] MEDS: Lactated Ringers 1,000 ML 100 ML IVCONT (00:58)
[2021-04-03] MEDS: vancomycin HCL 1,500 MG in 0.9 % Sodium Chloride 500 ML 333.33 MG IV (02:56)
[2021-04-03 04:34] VITALS: BP 122/77; PULSE 54; RESP 20; TEMP 37.7; O2SAT 95
[2021-04-03 08:00] VITALS: BP 136/87; PULSE 53; RESP 20; TEMP 36.7; O2SAT 97
[2021-04-03] MEDS: buPROPion HCl XL 150 MG TAB.ER.24H PO (08:01)
[2021-04-03] MEDS: Baclofen 10 MG TABLET PO ×2 (08:01→15:57)
[2021-04-03] MEDS: Gabapentin 600 MG TABLET PO ×2 (08:01→15:57)
[2021-04-03] MEDS: 0.9 % Sodium Chloride Flush 3 ML SYRINGE IVFLUSH ×2 (08:01→08:05)
[2021-04-03] MEDS: methADONE HCl 20 MG/2 ML ORAL.CONC 140 MG PO (08:02)
[2021-04-03 08:32] LABS: MANUAL DIFF FLAG NO
[2021-04-03 08:34] LABS: Basophils Percent Auto 0.2 % (0-2); Eosinophils Absolute Auto 0.2 X10*3/uL (0.0-0.4); Eosinophils Percent Auto 2.8 % (0-4); Hematocrit 37.2 % (42.0-52.0); Hemoglobin 12.1 g/dl (14.0-18.0); Imm Gran Abs Auto 0.04 X10*3/uL (0.00-0.03); Imm Gran Pct Auto 0.6 % (0.0-0.4); Lymphocytes Absolute Auto 2.2 X10*3/uL (1.2-4.9); Mean Corpuscular HGB Conc 32.5 g/dl (31.0-36.0); Mean Corpuscular Hemoglobin 27.1 pg (27.0-33.0); Mean Corpuscular Volume 83.4 fL (80.0-98.0); Mean Platelet Volume 9.4 fL (9.4-12.4); Monocytes Absolute Auto 0.6 X10*3/uL (0.1-1.2); Monocytes Percent Auto 8.9 % (2-11); Neutrophils Absolute Auto 3.3 x10*3/uL (2.0-8.3); Neutrophils Percent Auto 52.5 % (45-73); Platelet Count 275 X10*3/uL (160-400); Red Blood Count 4.46 X10*6/uL (4.60-5.80); Red Cell Distribution Width 13.2 % (11.0-16.0); White Blood Count 6.2 X10*3/uL (4.8-10.8)
[2021-04-03 08:50] LABS: Estimated Glomerular Filt Rate > 60
[2021-04-03 11:55] VITALS: BP 121/78; PULSE 54; RESP 20; TEMP 36.5; O2SAT 97
[2021-04-03 12:53] LABS: Vancomycin Trough 14.5 mcg/mL (10.0-20.0)
--- NOTE | 2021-04-03 13:39 | PC.NURSE ---
Skin/wound assessment completed today. Patient has an abscess to inside of right elbow, no purulent drainage any longer just scant serous drainage. Woundres gel applied to wound and covered with foam dressing. No other skin issues noted at this time.
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
[2021-04-03 15:53] VITALS: BP 96/60; PULSE 58; RESP 16; TEMP 37; O2SAT 96
[2021-04-03] MEDS: Enoxaparin Sodium 40 MG/0.4 ML SYRINGE SUBCUT (15:57)
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
--- NOTE | 2021-04-03 17:23 | MHC.CM.PN ---
CM was contacted by Nursing Punch Press Setter, as pt needs a ride home. CM met with patient. Pt is agreeable to Lyft ride home. Meter Calibrator, Janet, in a [employer] [address], licence plate [id number]. CM called [employer] and spoke with Internal Combustion Engine Assembler. Ride will be at main entrance of [facility] for ride home. ROGE spoke with Winsome OCHOA.
== END 2021-04-03 18:06 | disposition home or self-care (01) | DRG 351 ==
LOC: HO.ED 12:47 → HO.EDOVER 14:31 → HO.IMC 21:24
PROVIDERS: Hospitalist; Admitting Provider Family Medicine; Emergency Provider Emergency Medicine; PCP Nurse Practitioner; Visit Provider Nurse Practitioner Acute Care
DX: M62.82 Rhabdomyolysis (principal); L03.116 Cellulitis of left lower limb; D72.829 Elevated white blood cell count, unspecified; F11.20 Opioid dependence, uncomplicated; E78.5 Hyperlipidemia, unspecified; N40.0 Benign prostatic hyperplasia without lower urinary tract symptoms; Z59.02 Unsheltered homelessness; F43.10 Post-traumatic stress disorder, unspecified; F17.210 Nicotine dependence, cigarettes, uncomplicated; Z71.6 Tobacco abuse counseling; Z20.822 Contact with and (suspected) exposure to COVID-19
CPT/HCPCS: 36415; 73070; 73610; 73630; 80048; 80053; 80076; 80202; 80307; 82550; 82565; 83605; 83735; 83880; 85025; 87040; 87635; 93971; 99285; J1170; J1650; J2543; J3370

== ENCOUNTER 2021-04-26 10:31 | Emergency (ER) | payer MEDICAID, SELFPAY ==
[2021-04-26 10:59] VITALS: BP 113/68; BP 132/79; PULSE 72; RESP 18; TEMP 36.6; O2SAT 97; O2SAT 99; BMI 34.7
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
--- NOTE | 2021-04-26 11:39 | PHA.MEDREC ---
Pharmacy Consult ? Medication Reconciliation Pharmacy has completed the medication reconciliation. Patient has not taken any medications since he was discharge 03/31/2021. He reports that the methadone was stopped because he began using heroin again. The medications were as followed: atorvastatin 10 mg tablet 1 tab PO BEDTIME RF: 0 tamsulosin 0.4 mg capsule 1 cap PO BEDTIME RF: 0 clonidine HCl 0.1 mg Tablet 0.1 mg PO BID PRN (Reason: anxiety) Qty: 60 RF: 0 gabapentin 600 mg Tablet 600 mg PO TID Qty: 90 RF: 0 trazodone 50 mg Tablet 50 mg PO BEDTIME PRN (Reason: insomnia) Qty: 15 RF: 1 prazosin 5 mg Capsule 5 mg PO BEDTIME Qty: 15 RF: 1 divalproex 500 mg Tablet Extended Release 24 Hr 1,500 mg PO BEDTIME Qty: 90 RF: 0 aripiprazole 15 mg Tablet 15 mg PO DAILY Qty: 30 RF: 0 mirtazapine 30 mg Tablet 30 mg PO BEDTIME Qty: 30 RF: 0 docusate sodium 100 mg Capsule 100 mg PO BID Qty: 60 RF: 0 baclofen 10 mg tablet 10 mg PO TID RF: 0 hydroxyzine HCl 50 mg tablet 50 mg PO TID PRN (Reason: Anxiety) RF: 0 risperidone 0.5 mg Tablet 0.5 mg PO DAILY RF: 0 bupropion HCl 200 mg Tablet Sustained-Release 12 Hr 200 mg PO DAILY RF: 0 doxycycline hyclate 100 mg tablet 100 mg PO BID Qty: 8 RF: 0
[2021-04-26 11:50] LABS: MANUAL DIFF FLAG NO
[2021-04-26 11:53] LABS: Basophils Percent Auto 0.2 % (0-2); Eosinophils Absolute Auto 0.1 X10*3/uL (0.0-0.4); Eosinophils Percent Auto 0.7 % (0-4); Hematocrit 40.6 % (42.0-52.0); Hemoglobin 13.1 g/dl (14.0-18.0); Imm Gran Abs Auto 0.02 X10*3/uL (0.00-0.03); Imm Gran Pct Auto 0.2 % (0.0-0.4); Lymphocytes Absolute Auto 1.8 X10*3/uL (1.2-4.9); Mean Corpuscular HGB Conc 32.3 g/dl (31.0-36.0); Mean Corpuscular Hemoglobin 26.8 pg (27.0-33.0); Mean Corpuscular Volume 83.2 fL (80.0-98.0); Mean Platelet Volume 9.9 fL (9.4-12.4); Monocytes Absolute Auto 0.7 X10*3/uL (0.1-1.2); Monocytes Percent Auto 8.4 % (2-11); Neutrophils Absolute Auto 5.5 x10*3/uL (2.0-8.3); Neutrophils Percent Auto 68.5 % (45-73); Platelet Count 308 X10*3/uL (160-400); Red Blood Count 4.88 X10*6/uL (4.60-5.80); Red Cell Distribution Width 13.7 % (11.0-16.0); White Blood Count 8.1 X10*3/uL (4.8-10.8)
[2021-04-26 12:05] LABS: Ethanol < 10 mg/dL
[2021-04-26 12:09] LABS: COVID-19 Test Negative (Negative); IDNOW Serial# 9DD0AD1C
[2021-04-26 12:13] LABS: Alanine Aminotransferase 184 U/L (0-40); Albumin Level 4.1 g/dL (3.5-5.0); Alkaline Phosphatase 97 U/L (39-117); Anion Gap 15 (12-20); Aspartate Amino Transferase 130 U/L (5-37); Bilirubin Direct 0.3 mg/dL (0.0-0.5); Bilirubin Total 0.8 mg/dL (0.0-1.0); Blood Urea Nitrogen 15 mg/dL (9-16); Calcium 10.2 mg/dL (8.4-10.2); Carbon Dioxide 24 mmol/L (22-29); Chloride 104 mmol/L (96-108); Creatinine Clr Calc Pharmacy 156.5; Estimated Glomerular Filt Rate > 60; Glucose Random 97 mg/dL (60-115); Potassium 4.4 mmol/L (3.3-5.1); Sodium 139 mmol/L (135-145); Total Protein 7.7 g/dL (6.5-8.0)
[2021-04-26 21:12] LABS: Appearance Urine CLEAR; Color Urine YELLOW; Glucose Urine UA NEG (NEG); Leukocyte Esterase Urine NEG (NEG); Nitrite Urine NEG (NEG); Urine Blood NEG (NEG); Urine Ketones NEG (NEG); Urine Protein NEG (NEG-TRACE)
[2021-04-26 21:25] LABS: Amphetamine Screen Urine Not Detected (Not Detect); Barbiturates, Urine Not Detected (Not Detect); Benzodiazepines Screen Urine Not Detected (Not Detect); Cannabinoid Screen Urine Not Detected (Not Detect); Cocaine Screen Urine POSITIVE (Not Detect); Fentanyl, urine POSITIVE (Not Detect); Opiate Screen Urine POSITIVE (Not Detect); Phencyclidine Screen Urine Not Detected (Not Detect)
--- NOTE | 2021-04-26 23:39 | MHC.CARE ---
Pt was accepted to [facility] for tomorrow @ 10:00am
[2021-04-27] MEDS: LORazepam 1 MG TABLET 2 MG PO (00:31)
[2021-04-27 00:59] VITALS: BP 112/60; PULSE 73; RESP 20; TEMP 36.3; O2SAT 95
--- NOTE | 2021-04-27 05:07 | PC.NURSE ---
Patient slept through the night, no distress observed/reported, patient had history of opiates withdrawal but reported his not withdrawing but feeling anxious and restless, [place] 2 [place] [id number] as ordered with + effect, patient is accepted to [facility] ETA is 0930am on 04/27/21, paper work submitted to ED Inpatient Nursing Aide, BREANNA, behavior appropriate, patient is currently not on medication, will continue to monitor.
--- NOTE | 2021-04-27 08:23 | PC.NURSE ---
report given to arturo banks
[2021-04-27 08:42] LABS: HBc Num1 0.07 S/CO (0.00-0.79); HBsAGNum1 0.27 S/CO (0.00-0.99); Hepatitis B Core Antibody Nonreactive (Nonreactive); Hepatitis B Surface Antigen Negative (Negative)
[2021-04-27 08:43] LABS: HBS Num1 320.31 mIU/mL (0-7.99); ~HepC Num1 16.56 S/CO (0.00-0.79); ~Hepatitis B Surface Antibody REACTIVE (Nonreactive); ~Hepatitis C Antibody Reactive (Nonreactive)
[2021-04-28 08:09] LABS: Hepatitis A Antibody IgM 0.31 Index (0-0.79); ~Hepatitis A Antibody IgM Nonreactive (Nonreactive)
== END 2021-04-27 09:44 ==
PROVIDERS: Physician Assistant; Emergency Provider Emergency Medicine Emergency Medical Services
DX: F33.1 Major depressive disorder, recurrent, moderate (principal); R45.851 Suicidal ideations; F11.10 Opioid abuse, uncomplicated; R44.0 Auditory hallucinations; F14.10 Cocaine abuse, uncomplicated; Z20.822 Contact with and (suspected) exposure to COVID-19; Z79.899 Other long term (current) drug therapy; Z71.51 Drug abuse counseling and surveillance of drug abuser
CPT/HCPCS: 36415; 80048; 80076; 80307; 81003; 82077; 83735; 85025; 86704; 86706; 86709; 86803; 87340; 87635; 99285

== ENCOUNTER 2021-05-18 11:34 | Emergency (ER) | payer MEDICAID, SELFPAY ==
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
[2021-05-18 14:08] VITALS: BP 106/58; PULSE 91; RESP 12; O2SAT 97; BMI 31.7
[2021-05-18 14:49] LABS: COVID-19 Test Negative (Negative)
[2021-05-18] MEDS: oxyCODONE HCl Immed Release 5 MG TABLET 10 MG PO (17:36)
[2021-05-18] MEDS: diazePAM 5 MG TABLET PO (17:36)
[2021-05-18 17:39] VITALS: BP 99/52; PULSE 84; RESP 17; O2SAT 95
[2021-05-18 18:15] VITALS: RESP 17
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
[2021-05-18 19:14] LABS: Basophils Percent Auto 0.2 % (0-2); Eosinophils Absolute Auto 0.2 X10*3/uL (0.0-0.4); Eosinophils Percent Auto 1.6 % (0-4); Hematocrit 41.8 % (42.0-52.0); Hemoglobin 13.6 g/dl (14.0-18.0); Imm Gran Abs Auto 0.06 X10*3/uL (0.00-0.03); Imm Gran Pct Auto 0.5 % (0.0-0.4); Lymphocytes Absolute Auto 2.6 X10*3/uL (1.2-4.9); Lymphocytes Percent Auto 20.4 % (20-40); MANUAL DIFF FLAG SCAN; Mean Corpuscular HGB Conc 32.5 g/dl (31.0-36.0); Mean Corpuscular Hemoglobin 27.1 pg (27.0-33.0); Mean Corpuscular Volume 83.3 fL (80.0-98.0); Mean Platelet Volume 9.9 fL (9.4-12.4); Monocytes Absolute Auto 1.6 X10*3/uL (0.1-1.2); Monocytes Percent Auto 12.2 % (2-11); Neutrophils Absolute Auto 8.3 x10*3/uL (2.0-8.3); Neutrophils Percent Auto 65.1 % (45-73); Platelet Count 169 X10*3/uL (160-400); Red Blood Count 5.02 X10*6/uL (4.60-5.80); Red Cell Distribution Width 15.3 % (11.0-16.0); SCAN SMEAR FLAG 1; White Blood Count 12.7 X10*3/uL (4.8-10.8)
[2021-05-18 19:28] LABS: Anion Gap 14 (12-20); Blood Urea Nitrogen 15 mg/dL (9-16); C Reactive Protein 6.93 mg/dL (< or = 0.50); Calcium 9.3 mg/dL (8.4-10.2); Carbon Dioxide 29 mmol/L (22-29); Chloride 99 mmol/L (96-108); Creatinine Clr Calc Pharmacy 145.2; Estimated Glomerular Filt Rate > 60; Glucose Random 156 mg/dL (60-115); Sodium 138 mmol/L (135-145)
[2021-05-18 19:31] LABS: Lactic Acid 2.3 mmol/L (0.5-2.0)
[2021-05-18] MEDS: iohexoL 350 MG/ML 100 ML INFUS..BTL IV ×2 (19:49→20:07)
[2021-05-18 19:54] LABS: SLIDE REVIEW VERIFIED
[2021-05-18 20:15] LABS: Erythrocyte Sedimentation Rate 2 MM/HR (0-15)
[2021-05-18 20:49] VITALS: BP 114/55; PULSE 92; RESP 16
[2021-05-18] MEDS: Piperacillin Sodium/Tazobactam 3.375 GM in 0.9 % Sodium Chloride 50 ML IV (20:49)
[2021-05-18 21:07] LABS: Reflex Lactate? Lactic Acid Added
[2021-05-18] MEDS: 0.9 % Sodium Chloride 1,000 ML 999 ML IV (21:48)
[2021-05-18 21:51] VITALS: RESP 16
[2021-05-18] MEDS: Morphine Sulfate 4 MG/ML CARTRIDGE IVPUSH (21:51)
[2021-05-18] MEDS: ondansetron HCL 4 MG/2 ML VIAL IVPUSH (21:51)
[2021-05-18 22:09] LABS: Appearance Urine CLEAR; Color Urine YELLOW; Glucose Urine UA NEG (NEG); Leukocyte Esterase Urine NEG (NEG); Nitrite Urine NEG (NEG); PH 5.5 (5.0-8.0); Specific Gravity - Urine >= 1.030 (1.005-1.025); Urine Blood NEG (NEG); Urine Ketones NEG (NEG); Urine Protein NEG (NEG-TRACE)
[2021-05-18] MEDS: vancomycin HCL 1,000 MG in 0.9 % Sodium Chloride 250 ML 270 MG IV (22:10)
[2021-05-18 22:30] LABS: ~Lactic Acid-LAB USE ONLY 1.6 mmol/L (0.5-2.0)
[2021-05-18 23:00] VITALS: RESP 16
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
[2021-05-19 01:06] VITALS: BP 114/46; PULSE 76; RESP 16; TEMP 36.7; O2SAT 95
[2021-05-19 03:34] VITALS: BP 103/47
--- NOTE | 2021-05-19 03:48 | PC.NURSE ---
called [facility] to give Report transferred to ER and hung up on. Second attempt to call
[2021-05-19 04:15] VITALS: BP 103/65; PULSE 81; O2SAT 98
== END 2021-05-19 04:17 | disposition short-term general hospital (02) ==
PROVIDERS: Physician Assistant Medical; Emergency Provider Internal Medicine
DX: G06.2 Extradural and subdural abscess, unspecified (principal); F19.10 Other psychoactive substance abuse, uncomplicated; M54.9 Dorsalgia, unspecified; F11.20 Opioid dependence, uncomplicated; F17.200 Nicotine dependence, unspecified, uncomplicated; Z91.51 Personal history of suicidal behavior; Z20.822 Contact with and (suspected) exposure to COVID-19
CPT/HCPCS: 36415; 72100; 72132; 80048; 81003; 82550; 83605; 85025; 85652; 86140; 87040; 87635; 96361; 96365; 96375; 99285; J2270; J2405; J2543; J3370; Q9967

== ENCOUNTER → 2021-07-04 14:25 | Outpatient (REF) | payer MEDICAID, SELFPAY ==
--- NOTE | 2021-07-04 15:37 | ECG_ITS ---
Test Reason : F11.20 Blood Pressure : / mmHG Vent. Rate : 076 BPM Atrial Rate : 076 BPM P-R Int : 156 ms QRS Dur : 088 ms QT Int : 378 ms P-R-T Axes : 036 058 051 degrees QTc Int : 425 ms Normal sinus rhythm Normal ECG When compared with ECG of 09-FEB-2021 14:09, QT has shortened Referred By: Britney Kessler Electronically Signed By:Jesse Sloan
[2021-07-04 16:01] LABS: Hematocrit 42.6 % (42.0-52.0); Hemoglobin 13.9 g/dl (14.0-18.0); Mean Corpuscular HGB Conc 32.6 g/dl (31.0-36.0); Mean Corpuscular Hemoglobin 26.8 pg (27.0-33.0); Mean Corpuscular Volume 82.1 fL (80.0-98.0); Mean Platelet Volume 9.6 fL (9.4-12.4); Platelet Count 167 X10*3/uL (160-400); Red Blood Count 5.19 X10*6/uL (4.60-5.80); Red Cell Distribution Width 14.3 % (11.0-16.0)
[2021-07-04 16:07] LABS: Prothrombin Time 11.6 SEC (9.9-13.0)
[2021-07-04 16:26] LABS: Alanine Aminotransferase 304 U/L (0-40); Albumin Level 4.1 g/dL (3.5-5.0); Alkaline Phosphatase 122 U/L (39-117); Anion Gap 13 (12-20); Aspartate Amino Transferase 151 U/L (5-37); Bilirubin Direct < 0.2 mg/dL (0.0-0.5); Bilirubin Total 0.2 mg/dL (0.0-1.0); Blood Urea Nitrogen 17 mg/dL (9-16); Calcium 9.5 mg/dL (8.4-10.2); Carbon Dioxide 27 mmol/L (22-29); Chloride 105 mmol/L (96-108); Estimated Glomerular Filt Rate > 60; Glucose Random 118 mg/dL (60-115); Sodium 141 mmol/L (135-145); Total Protein 7.3 g/dL (6.5-8.0)
[2021-07-05 03:59] LABS: ~HepC Num1 15.64 S/CO (0.00-0.79); ~Hepatitis C Antibody Reactive (Nonreactive)
[2021-07-05 19:27] LABS: HCV RNA PCR Qn 1790000 IU/mL (NOT DETECTED); HCV RNA PCR Qn 6.25 Log IU/mL (NOT DETECTED)
[2021-07-10 15:21] LABS: FIB-ALT 263 U/L (9-46); FIB-Alpha-2-Macroglobulin 156 mg/dL (106-279); FIB-Apolipoprotein A1 150 mg/dL (94-176); FIB-GGT 173 U/L (3-90); FIB-Haptoglobin 74 mg/dL (43-212); FIB-Total Bilirubin 0.2 mg/dL (0.2-1.2); Liver Fibrosis Score 0.15; Liver Fibrosis Stage F0; Nec Inflam Act Grade A3; Nec Inflam Act Score 0.84
[2021-07-12 08:51] LABS: HCV Genotype LiPA 2
== END ==
LOC: HO.CARD 14:25
PROVIDERS: PCP Nurse Practitioner; Visit Provider Internal Medicine
DX: B19.20 Unspecified viral hepatitis C without hepatic coma (principal); F11.20 Opioid dependence, uncomplicated; F17.210 Nicotine dependence, cigarettes, uncomplicated
CPT/HCPCS: 36415; 80048; 80076; 81596; 85027; 85610; 86803; 87522; 87902; 93005; 99202; 99212

== ENCOUNTER → 2021-07-17 09:24 | Outpatient (BNVA) | payer MEDICAID, SELFPAY | PROVIDERS: PCP Nurse Practitioner; Visit Provider Internal Medicine | DX: F11.20 Opioid dependence, uncomplicated (principal); G89.29 Other chronic pain; W34.00XD Accidental discharge from unspecified firearms or gun, subsequent encounter | CPT/HCPCS: 99202 ==

== ENCOUNTER → 2021-08-15 10:07 | Outpatient (BNVA) | payer MEDICAID, SELFPAY | PROVIDERS: Visit Provider Internal Medicine | DX: B19.20 Unspecified viral hepatitis C without hepatic coma (principal) | CPT/HCPCS: 99212 ==

== ENCOUNTER 2021-09-10 07:33 | Inpatient (IN) | payer MEDICAID, OTHER, SELFPAY ==
[2021-09-10 07:36] VITALS: BP 128/69; PULSE 93; RESP 18; TEMP 37; O2SAT 97; BMI 36.9
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
[2021-09-10 09:43] LABS: COVID-19 Test Negative (Negative)
[2021-09-10] MEDS: Diphth,Pertus(ACell),Tet Adult 0.5 ML SYRINGE IM (13:34)
[2021-09-10] MEDS: Nicotine Polacrilex 2 MG GUM BUCCAL ×2 (13:50→16:06)
[2021-09-10] MEDS: methADONE HCl 20 MG/2 ML ORAL.CONC 120 MG PO (13:50)
[2021-09-10 16:37] LABS: Amphetamine Screen Urine Not Detected (Not Detect); Barbiturates, Urine Not Detected (Not Detect); Benzodiazepines Screen Urine Not Detected (Not Detect); Cannabinoid Screen Urine Not Detected (Not Detect); Cocaine Screen Urine POSITIVE (Not Detect); Fentanyl, urine POSITIVE (Not Detect); Opiate Screen Urine POSITIVE (Not Detect); Phencyclidine Screen Urine Not Detected (Not Detect)
[2021-09-10 16:57] LABS: Ethanol < 10 mg/dL
[2021-09-10 17:03] LABS: Alanine Aminotransferase 36 U/L (0-40); Albumin Level 3.2 g/dL (3.5-5.0); Alkaline Phosphatase 84 U/L (39-117); Anion Gap 15 (12-20); Aspartate Amino Transferase 72 U/L (5-37); Bilirubin Direct 0.3 mg/dL (0.0-0.5); Bilirubin Total 0.6 mg/dL (0.0-1.0); Blood Urea Nitrogen 13 mg/dL (9-16); Calcium 8.6 mg/dL (8.4-10.2); Carbon Dioxide 21 mmol/L (22-29); Chloride 109 mmol/L (96-108); Creatinine Clr Calc Pharmacy 165.2; Estimated Glomerular Filt Rate > 60; Glucose Random 117 mg/dL (60-115); Potassium 4.1 mmol/L (3.3-5.1); Sodium 141 mmol/L (135-145); Total Protein 6.1 g/dL (6.5-8.0); Valproate < 2.0 mcg/mL (50.0-100.0)
[2021-09-10 17:04] LABS: Basophils Percent Auto 0.3 % (0-2); Eosinophils Absolute Auto 0.5 X10*3/uL (0.0-0.4); Eosinophils Percent Auto 5.2 % (0-4); Hematocrit 34.9 % (42.0-52.0); Hemoglobin 11.9 g/dl (14.0-18.0); Imm Gran Abs Auto 0.09 X10*3/uL (0.00-0.03); Lymphocytes Percent Auto 21.9 % (20-40); MANUAL DIFF FLAG SCAN; Mean Corpuscular HGB Conc 34.1 g/dl (31.0-36.0); Mean Corpuscular Hemoglobin 27.4 pg (27.0-33.0); Mean Corpuscular Volume 80.4 fL (80.0-98.0); Monocytes Absolute Auto 1.1 X10*3/uL (0.1-1.2); Monocytes Percent Auto 12.5 % (2-11); Neutrophils Absolute Auto 5.4 x10*3/uL (2.0-8.3); Neutrophils Percent Auto 59.1 % (45-73); PLT CLUMP 1; Red Blood Count 4.34 X10*6/uL (4.60-5.80); Red Cell Distribution Width 13.9 % (11.0-16.0); SCAN SMEAR FLAG 1
[2021-09-10 17:05] LABS: White Blood Count 9.1 X10*3/uL (4.8-10.8)
[2021-09-10 17:06] VITALS: BP 114/66; PULSE 72; RESP 16; O2SAT 98
[2021-09-10 17:23] LABS: Mean Platelet Volume 10.6 fL (9.4-12.4); Platelet Count 171 X10*3/uL (160-400); SLIDE REVIEW VERIFIED
[2021-09-10] MEDS: Melatonin 3 MG TABLET 9 MG PO (20:52)
[2021-09-10] MEDS: NaPROXEN 500 MG TABLET PO (20:53)
[2021-09-10] MEDS: Baclofen 10 MG TABLET PO (20:53)
[2021-09-10] MEDS: Gabapentin 600 MG TABLET PO (20:53)
[2021-09-10] MEDS: Mirtazapine 30 MG TABLET PO (20:53)
[2021-09-10] MEDS: Prazosin HCL 5 MG CAPSULE PO (20:53)
[2021-09-10 20:54] VITALS: BP 114/60; PULSE 70; RESP 17; TEMP 37.1; O2SAT 97
[2021-09-10] MEDS: Divalproex Sodium ER 500 MG TAB.ER.24H 1500 MG PO (20:54)
[2021-09-10] MEDS: traZODone HCL 50 MG TABLET PO (20:54)
--- NOTE | 2021-09-11 | ECG_ITS ---
Test Reason : medical clearance Blood Pressure : / mmHG Vent. Rate : 060 BPM Atrial Rate : 060 BPM P-R Int : 162 ms QRS Dur : 088 ms QT Int : 446 ms P-R-T Axes : 047 039 047 degrees QTc Int : 446 ms Normal sinus rhythm Normal ECG When compared with ECG of 04-JUL-2021 15:39, No significant change was found Referred By: Myah Muse Electronically Signed By:RAMÓN PALOMO MD
--- NOTE | 2021-09-11 06:16 | PC.NURSE ---
Patient slept through the night, no distress observed/reported, behavior non concerning at this time, medication compliant, disposition per care is section 12 inpatient bed search, VSS, will continue to monitor.
--- NOTE | 2021-09-11 07:07 | PC.NURSE ---
patient awake and having breakfast soon after t/w's arrival, flat but pleasant presentation patient appears in no distress
[2021-09-11 08:42] VITALS: BP 100/51; PULSE 66; RESP 16; TEMP 36.6; O2SAT 96
[2021-09-11] MEDS: Gabapentin 600 MG TABLET PO ×3 (09:08→21:12)
[2021-09-11] MEDS: buPROPion HCl XL 150 MG TAB.ER.24H PO (09:08)
[2021-09-11] MEDS: ARIPiprazole 15 MG TABLET PO (09:08)
[2021-09-11] MEDS: Tamsulosin HCL 0.4 MG CAPSULE PO (09:08)
[2021-09-11] MEDS: Atorvastatin Calcium 40 MG TABLET PO (09:08)
[2021-09-11] MEDS: risperiDONE 0.5 MG TABLET PO (09:08)
[2021-09-11] MEDS: buPROPion HCl XL 300 MG TAB.ER.24H PO (09:08)
[2021-09-11] MEDS: methADONE HCl 20 MG/2 ML ORAL.CONC 120 MG PO (09:08)
[2021-09-11] MEDS: Nicotine Polacrilex 2 MG GUM 4 MG BUCCAL (09:08)
[2021-09-11] MEDS: NaPROXEN 500 MG TABLET PO (09:20)
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
--- NOTE | 2021-09-11 15:20 | PC.NURSE ---
nurse to nurse given to m5 RN Marisol
[2021-09-11 17:15] VITALS: BP 124/70; PULSE 80; RESP 14; TEMP 36.7
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
[2021-09-11] MEDS: traZODone HCL 100 MG TABLET PO (21:12)
[2021-09-11] MEDS: Prazosin HCL 5 MG CAPSULE PO (21:12)
[2021-09-11] MEDS: Mirtazapine 30 MG TABLET PO (21:12)
[2021-09-11] MEDS: Melatonin 3 MG TABLET 9 MG PO (21:12)
[2021-09-12] MEDS: buPROPion HCl XL 150 MG TAB.ER.24H PO (09:01)
[2021-09-12] MEDS: Tamsulosin HCL 0.4 MG CAPSULE PO (09:01)
[2021-09-12] MEDS: Atorvastatin Calcium 40 MG TABLET PO (09:01)
[2021-09-12] MEDS: buPROPion HCl XL 300 MG TAB.ER.24H PO (09:01)
[2021-09-12] MEDS: ARIPiprazole 15 MG TABLET PO (09:01)
[2021-09-12] MEDS: methADONE HCl 20 MG/2 ML ORAL.CONC 120 MG PO (09:02)
[2021-09-12] MEDS: Gabapentin 600 MG TABLET PO ×3 (09:02→19:51)
[2021-09-12 09:04] VITALS: BP 115/67; PULSE 100; RESP 18; TEMP 36.7; O2SAT 97
[2021-09-12 09:17] LABS: Estimated Average Glucose 114 mg/dL; Hemoglobin A1c % 5.6 %
[2021-09-12 09:22] LABS: Cholesterol 119 mg/dL; HDL Cholesterol 27 mg/dL; LDL Cholesterol Calculated 70 mg/dl; Magnesium 1.9 mg/dL (1.6-2.6); Triglycerides 111 mg/dL
[2021-09-12 09:43] LABS: Thyroid Stimulating Hormone 0.83 uIU/mL (0.32-4.0)
[2021-09-12 10:05] LABS: Folate 12.2 ng/mL (> or = 4.0); Vitamin B12 376 pg/mL (200-900)
[2021-09-12] MEDS: Nicotine Polacrilex 2 MG GUM 4 MG BUCCAL (14:40)
[2021-09-12 18:00] VITALS: BP 99/51; PULSE 83
--- NOTE | 2021-09-12 19:18 | HO.PSYCHPN ---
Subjective Subjective Date of Service: 09/12/21 Reason For Visit: recurrent severe major depression, opioid use Subjective Notes: Conditional Voluntary Healthcare Proxy: No Guardianship: No Medical Problems Affecting Mental Status: No Interim History: I had an argument with my girl We broke up. I relapsed for a couple of days (heroin,cocaine, fentanyl), I stopped the medicines for a week. I need to get back on track. Discussion of precipitants to admission. Target sx pt describes are depression/anxiety. Review of Depakote, Risperdal. Finds Depakote unhelpful and a lot of work to maintain labs. Risperdal is helpful-discussed re-starting as a prn so he may get a better idea of how it fits into recovery. Discussed Lamictal, Venlafaxine trial and scheduled Clonidine vs prn. Medication Compliance: No (~5-7 days) Side effects from medications: No Attending Groups: No Review of Systems Acute medical concerns: No Medical Review of Systems: unchanged Review of Systems Psychiatric: Reports abnormal sleep pattern, Reports anxiety, Reports depression, Reports difficulty concentrating, Reports hopelessness, Reports irritability, Reports anhedonia, Reports mood swings and Reports suicidal ideation Mental Status Exam Mental Status Exam Patient Appearance: Fatigued Patient Orientation: Person, Place, Time and Situation Level of Consciousness: Sedated and Alert Patient Behavior: Appropriate, Talkative, Cooperative, Anxious, Fatigued, Isolative and Good Eye Contact Mood Description: Depressed Affect Description: Flat Patient Cognition Impaired: No Ability to Follow Directions: Good Speech Pattern: Spontaneous Speech Memory Description: Episodic Impaired Hallucinations: None Delusions: Not Present Perceptual Disturbances: Depersonalization and Derealization Thought Process: Rumination Thought Content: positive for Circumstantial, positive for Perseveration and positive for Suicidal Ideation Depressive Symptoms: Increased Anxiety, Insomnia, Diff. Making Decisions, Increased Irritability, Difficulty Sleeping, Loss of Int. in Activity, Feelings of Worthlessness, Hopelessness, Isolating-Friends/Family, Feelings of Guilt, Unhappiness, Increased Fatigue, Thoughts of /Suicide, Low Self Esteem, Loss of Energy and Difficulty Concentrating Judgement: Fair Diagnostics Vital Signs (24Hr): Vital Signs - 24 hr 09/12/21 09:04 Temperature 98.1 F Pulse Rate 100 Respiratory Rate 18 Blood Pressure 115/67 Pulse Oximetry 97 BMI result Body Mass Index 36.9 Labs Results: 09/10/21 16:55 09/10/21 16:27 Labs: Laboratory Results - last 48 hr 09/12/21 09/12/21 09/12/21 08:42 08:42 08:42 Estimat Average Glucose 114 Hemoglobin A1c % 5.6 Magnesium 1.9 Triglycerides 111 Cholesterol 119 D LDL Cholesterol, Calc 70 HDL Cholesterol 27 Vitamin B12 376 Folate 12.2 TSH 0.83 Free T4 0.80 Medications Medications Current Medications Acetaminophen (Acetaminophen 325 Mg Tablet) 650 mg PO Q6H PRN PRN Reason: Headache/Pain Mild Scale (1-3) Al Hydroxide/Mg Hydroxide (Magnesium Hydrox/Alum Hydrox 30 Ml Oral.Susp) 30 ml PO Q6H PRN PRN Reason: Heartburn/Nausea Aripiprazole (Aripiprazole 15 Mg Tablet) 15 mg PO DAILY [facility] Last Admin: 09/12/21 09:01 Dose: 15 mg Documented by: Atorvastatin Calcium (Atorvastatin Calcium 40 Mg Tablet) 40 mg PO DAILY [facility] Last Admin: 09/12/21 09:01 Dose: 40 mg Documented by: Baclofen (Baclofen 10 Mg Tablet) 10 mg PO TID PRN PRN Reason: muscle spasm Last Admin: 09/10/21 20:53 Dose: 10 mg Documented by: Bupropion HCl (Bupropion Hcl Xl 300 Mg Tab.Er.24h) 300 mg PO DAILY [facility] Last Admin: 09/12/21 09:01 Dose: 300 mg Documented by: Bupropion HCl (Bupropion Hcl Xl 150 Mg Tab.Er.24h) 150 mg PO DAILY [facility] Last Admin: 09/12/21 09:01 Dose: 150 mg Documented by: Clonidine HCl (Clonidine Hcl 0.1 Mg Tablet) 0.1 mg PO BID PRN; Protocol PRN Reason: anxiety Doxycycline Hyclate (Doxycycline Hyclate 100 Mg Tablet) 100 mg PO BID [facility] Stop: 09/16/21 09:01 Last Admin: 09/12/21 09:01 Dose: 100 mg Documented by: Gabapentin (Gabapentin 600 Mg Tablet) 600 mg PO TID [facility] Last Admin: 09/12/21 14:38 Dose: 600 mg Documented by: Hydroxyzine HCl (Hydroxyzine Hcl 50 Mg Tablet) 50 mg PO TID PRN PRN Reason: Anxiety Hydroxyzine HCl (Hydroxyzine Hcl 25 Mg Tablet) 25 mg PO BEDTIME PRN PRN Reason: Anxiety Magnesium Hydroxide (Milk Of Magnesia 30 Ml Oral.Susp) 30 ml PO DAILY PRN PRN Reason: Constipation Melatonin (Melatonin 3 Mg Tablet) 9 mg PO BEDTIME [facility] Last Admin: 09/11/21 21:12 Dose: 9 mg Documented by: Methadone HCl (Methadone Hcl 20 Mg/2 Ml Oral.Conc) 120 mg PO DAILY [facility] Last Admin: 09/12/21 09:02 Dose: 120 mg Documented by: Mirtazapine (Mirtazapine 30 Mg Tablet) 30 mg PO BEDTIME [facility] Last Admin: 09/11/21 21:12 Dose: 30 mg Documented by: Naproxen (Naproxen 500 Mg Tablet) 500 mg PO BID PRN PRN Reason: Pain, Moderate (Pain Scale 4-6 Last Admin: 09/11/21 09:20 Dose: 500 mg Documented by: Nicotine Polacrilex (Nicotine Polacrilex 2 Mg Gum) 4 mg BUCCAL Q2H PRN PRN Reason: CRAVINGS Last Admin: 09/12/21 14:40 Dose: 4 mg Documented by: Non-Formulary Medication (Glecaprevir-Pibrentasvir [Mavyret]) 3 tab PO DAILY [facility] Prazosin HCl (Prazosin Hcl 5 Mg Capsule) 5 mg PO BEDTIME [facility]; Protocol Last Admin: 09/11/21 21:12 Dose: 5 mg Documented by: Tamsulosin HCl (Tamsulosin Hcl 0.4 Mg Capsule) 0.4 mg PO DAILY [facility] Last Admin: 09/12/21 09:01 Dose: 0.4 mg Documented by: Trazodone HCl (Trazodone Hcl 100 Mg Tablet) 100 mg PO BEDTIME PRN PRN Reason: sleep Last Admin: 09/11/21 21:12 Dose: 100 mg Documented by: Allergies Allergies Allergy/AdvReac Type Severity Reaction Status Date / Time shellfish derived Allergy Severe ANAPHAYLAXI Verified 09/10/21 07:36 [SHELLFISH DERIVED] A Assessment & Plan Assessment & Plan (1) MDD (major depressive disorder), recurrent episode, severe: Qualifiers: Psychotic features: with psychotic features Qualified Code(s): F33.3 - Major depressive disorder, recurrent, severe with psychotic symptoms Status: Chronic Code(s): F33.2 - Major depressive disorder, recurrent severe without psychotic features (2) Opioid use disorder, severe, dependence: Status: Acute Code(s): F11.20 - Opioid dependence, uncomplicated (3) PTSD (post-traumatic stress disorder): Status: Chronic Code(s): F43.10 - Post-traumatic stress disorder, unspecified Assessment and Plan: Mr. Ty is a 36 year-old male with hx of MDD, opiod use disorder who self presented to [facility] reporting SI with plan to OD on heroin. Pt reports recent relapsed on opioids after several months of sobriety. He reports he has not followed up with psychiatry referrals. We discussed risks, benefits and alternative treatment options. pt agrees to restart psychotropic medications for depression. PLAN 1. Pt currently meets criteria for inpatient psychiatric level of care for further safetyt, containment, and stabilization. 2. re start psychotropic medications including: wellbutrin, gabapentin, abilify. Avoid polypharmacy. No need for 2 antipsychotics (d/c risperidone). D/c depakote s/s hep c. continue prazosin for nightmares. Trazodone prn for sleep. d/c remeron. 09/12/21 Discontinue Depakote as noted aboe Lamictal 25 mg HS Risperdal 0.5 mg bid prn as an assessment to see if it is of any benefit for Guillermo Venlafaxine ER 75 mg daily Change clonidine to scheduled vs prn for anxiety mgt. I spent minutes with the patient and/or on the patient floor today, greater than?50% of which was spent counseling/coordinating care. Patient educated on: diagnosis, medication risk/benefits, substance abuse and therapeutic strategies Informed Consent: understands and further education needed Reason for contiued inpatient stay Substantial Risk for: harm to self, inability to function and rapid decompensation
[2021-09-12] MEDS: Mirtazapine 30 MG TABLET PO (19:51)
[2021-09-12] MEDS: Melatonin 3 MG TABLET 9 MG PO (19:51)
[2021-09-12] MEDS: lamoTRIgine 25 MG TABLET PO (19:55)
[2021-09-13] MEDS: methADONE HCl 20 MG/2 ML ORAL.CONC 120 MG PO (08:56)
[2021-09-13] MEDS: Venlafaxine HCl ER 75 MG CAP.ER.24H PO (08:56)
[2021-09-13] MEDS: Tamsulosin HCL 0.4 MG CAPSULE PO (08:57)
[2021-09-13] MEDS: ARIPiprazole 15 MG TABLET PO (08:57)
[2021-09-13] MEDS: buPROPion HCl XL 150 MG TAB.ER.24H PO (08:57)
[2021-09-13] MEDS: cloNIDine HCL 0.1 MG TABLET PO ×2 (08:57→20:08)
[2021-09-13] MEDS: Gabapentin 600 MG TABLET PO ×3 (08:57→20:08)
[2021-09-13] MEDS: Atorvastatin Calcium 40 MG TABLET PO (08:57)
[2021-09-13] MEDS: buPROPion HCl XL 300 MG TAB.ER.24H PO (08:57)
[2021-09-13 08:59] VITALS: BP 118/69; PULSE 87; RESP 20; TEMP 36.3; O2SAT 97
--- NOTE | 2021-09-13 16:18 | HO.PSYCHPN ---
Subjective Subjective Date of Service: 09/13/21 Reason For Visit: recurrent severe major depression, opioid use Subjective Notes: Conditional Voluntary Healthcare Proxy: No Guardianship: No Medical Problems Affecting Mental Status: No Interim History: Reports L knee cellulitis to be improving slowly. Denies increase in pain. Reports racing thoughts last evening which did interfere with his sleep. Discussed benefits of Depakote. Will increase prn Risperdal to see if that is helpful, discussed possibly a replacement of Abilify to simplify regime. Reports feeling alone. Talking with team about his concern for his mother and her CKD dx. Medication Compliance: Yes Side effects from medications: No Attending Groups: No Review of Systems Acute medical concerns: No Medical Review of Systems: unchanged Review of Systems Psychiatric: Reports abnormal sleep pattern, Reports anxiety, Reports depression, Reports difficulty concentrating, Reports hopelessness, Reports irritability, Reports anhedonia, Reports mood swings and Reports suicidal ideation Mental Status Exam Mental Status Exam Patient Appearance: Fatigued Patient Orientation: Person, Place, Time and Situation Level of Consciousness: Sedated and Alert Patient Behavior: Appropriate, Talkative, Cooperative, Anxious, Fatigued, Isolative and Good Eye Contact Mood Description: Depressed Affect Description: Flat Patient Cognition Impaired: No Ability to Follow Directions: Good Speech Pattern: Spontaneous Speech Memory Description: Episodic Impaired Hallucinations: None Delusions: Not Present Perceptual Disturbances: Depersonalization and Derealization Thought Process: Rumination Thought Content: positive for Circumstantial, positive for Perseveration and positive for Suicidal Ideation Depressive Symptoms: Increased Anxiety, Insomnia, Diff. Making Decisions, Increased Irritability, Difficulty Sleeping, Loss of Int. in Activity, Feelings of Worthlessness, Hopelessness, Isolating-Friends/Family, Feelings of Guilt, Unhappiness, Increased Fatigue, Thoughts of /Suicide, Low Self Esteem, Loss of Energy and Difficulty Concentrating Judgement: Fair Diagnostics Vital Signs (24Hr): Vital Signs - 24 hr 09/12/21 18:00 09/13/21 08:59 Temperature 97.4 F Pulse Rate 83 87 Respiratory Rate 20 Blood Pressure 99/51 L 118/69 Pulse Oximetry 97 BMI result Body Mass Index 36.9 Labs Results: 09/10/21 16:55 09/10/21 16:27 Labs: Laboratory Results - last 48 hr 09/12/21 09/12/21 09/12/21 08:42 08:42 08:42 Estimat Average Glucose 114 Hemoglobin A1c % 5.6 Magnesium 1.9 Triglycerides 111 Cholesterol 119 D LDL Cholesterol, Calc 70 HDL Cholesterol 27 Vitamin B12 376 Folate 12.2 TSH 0.83 Free T4 0.80 Medications Medications Current Medications Acetaminophen (Acetaminophen 325 Mg Tablet) 650 mg PO Q6H PRN PRN Reason: Headache/Pain Mild Scale (1-3) Al Hydroxide/Mg Hydroxide (Magnesium Hydrox/Alum Hydrox 30 Ml Oral.Susp) 30 ml PO Q6H PRN PRN Reason: Heartburn/Nausea Aripiprazole (Aripiprazole 15 Mg Tablet) 15 mg PO DAILY [facility] Last Admin: 09/13/21 08:57 Dose: 15 mg Documented by: Atorvastatin Calcium (Atorvastatin Calcium 40 Mg Tablet) 40 mg PO DAILY [facility] Last Admin: 09/13/21 08:57 Dose: 40 mg Documented by: Baclofen (Baclofen 10 Mg Tablet) 10 mg PO TID PRN PRN Reason: muscle spasm Last Admin: 09/10/21 20:53 Dose: 10 mg Documented by: Bupropion HCl (Bupropion Hcl Xl 300 Mg Tab.Er.24h) 300 mg PO DAILY [facility] Last Admin: 09/13/21 08:57 Dose: 300 mg Documented by: Bupropion HCl (Bupropion Hcl Xl 150 Mg Tab.Er.24h) 150 mg PO DAILY [facility] Last Admin: 09/13/21 08:57 Dose: 150 mg Documented by: Clonidine HCl (Clonidine Hcl 0.1 Mg Tablet) 0.1 mg PO BID [facility]; Protocol Last Admin: 09/13/21 08:57 Dose: 0.1 mg Documented by: Doxycycline Hyclate (Doxycycline Hyclate 100 Mg Tablet) 100 mg PO BID [facility] Stop: 09/16/21 09:01 Last Admin: 09/13/21 08:57 Dose: 100 mg Documented by: Gabapentin (Gabapentin 600 Mg Tablet) 600 mg PO TID [facility] Last Admin: 09/13/21 14:23 Dose: 600 mg Documented by: Hydroxyzine HCl (Hydroxyzine Hcl 50 Mg Tablet) 50 mg PO TID PRN PRN Reason: Anxiety Hydroxyzine HCl (Hydroxyzine Hcl 25 Mg Tablet) 25 mg PO BEDTIME PRN PRN Reason: Anxiety Lamotrigine (Lamotrigine 25 Mg Tablet) 25 mg PO BEDTIME [facility] Last Admin: 09/12/21 19:55 Dose: 25 mg Documented by: Magnesium Hydroxide (Milk Of Magnesia 30 Ml Oral.Susp) 30 ml PO DAILY PRN PRN Reason: Constipation Melatonin (Melatonin 3 Mg Tablet) 9 mg PO BEDTIME [facility] Last Admin: 09/12/21 19:51 Dose: 9 mg Documented by: Methadone HCl (Methadone Hcl 20 Mg/2 Ml Oral.Conc) 120 mg PO DAILY [facility] Last Admin: 09/13/21 08:56 Dose: 120 mg Documented by: Mirtazapine (Mirtazapine 30 Mg Tablet) 30 mg PO BEDTIME [facility] Last Admin: 09/12/21 19:51 Dose: 30 mg Documented by: Naproxen (Naproxen 500 Mg Tablet) 500 mg PO BID PRN PRN Reason: Pain, Moderate (Pain Scale 4-6 Last Admin: 09/11/21 09:20 Dose: 500 mg Documented by: Nicotine Polacrilex (Nicotine Polacrilex 2 Mg Gum) 4 mg BUCCAL Q2H PRN PRN Reason: CRAVINGS Last Admin: 09/12/21 14:40 Dose: 4 mg Documented by: Non-Formulary Medication (Glecaprevir-Pibrentasvir [Mavyret]) 3 tab PO DAILY [facility] Prazosin HCl (Prazosin Hcl 5 Mg Capsule) 5 mg PO BEDTIME [facility]; Protocol Last Admin: 09/12/21 19:47 Dose: Not Given Documented by: Risperidone (Risperidone 0.5 Mg Tablet) 0.5 mg PO BID PRN PRN Reason: agitation, anxiety Tamsulosin HCl (Tamsulosin Hcl 0.4 Mg Capsule) 0.4 mg PO DAILY [facility] Last Admin: 09/13/21 08:57 Dose: 0.4 mg Documented by: Trazodone HCl (Trazodone Hcl 100 Mg Tablet) 100 mg PO BEDTIME PRN PRN Reason: sleep Last Admin: 09/11/21 21:12 Dose: 100 mg Documented by: Venlafaxine HCl (Venlafaxine Hcl Er 75 Mg Cap.Er.24h) 75 mg PO DAILY [facility] Last Admin: 09/13/21 08:56 Dose: 75 mg Documented by: Allergies Allergies Allergy/AdvReac Type Severity Reaction Status Date / Time shellfish derived Allergy Severe ANAPHAYLAXI Verified 09/10/21 07:36 [SHELLFISH DERIVED] A Assessment & Plan Assessment & Plan (1) Opioid use disorder, severe, dependence: Status: Acute Code(s): F11.20 - Opioid dependence, uncomplicated (2) MDD (major depressive disorder), recurrent episode, severe: Qualifiers: Psychotic features: with psychotic features Qualified Code(s): F33.3 - Major depressive disorder, recurrent, severe with psychotic symptoms Status: Chronic Code(s): F33.2 - Major depressive disorder, recurrent severe without psychotic features (3) PTSD (post-traumatic stress disorder): Status: Chronic Code(s): F43.10 - Post-traumatic stress disorder, unspecified (4) Cocaine use disorder: Status: Acute Code(s): F14.10 - Cocaine abuse, uncomplicated Plan Guillermo is a 36 y.o. male with history of depression, PTSD, chronic SI, substance abuse, opiate dependent on methadone. He has multiple inpatient psych admissions for relapse, SI, depression, and mood dysregulation. He has chronic homelessness with minimal family support, financial stress. Hx of non-adherence with follow up outpatient appointments. 1. Continue MAT, on Methadone 120 mg 2. Restarted on home meds with remeron 30mg QHS for insomnia. Hold Depakote 1500 mg QHS, VPA shows non-adherence. Recently started on risperdal 0.5 mg, but denies benefit, will not re-start. Monitor response to medications. Monitor for safety in the milieu. Discharge on stabilization. Patient seen. Chart reviewed. Discussed with team. 09/13/21 Increase Risperdal prn to 1 mg BID prn. Consider replacement of Abilify as target sx is racing of thought at bedtime. I spent minutes with the patient and/or on the patient floor today, greater than?50% of which was spent counseling/coordinating care. Patient educated on: medication risk/benefits and therapeutic strategies Informed Consent: understands and further education needed Reason for contiued inpatient stay Substantial Risk for: harm to self, inability to function and rapid decompensation
[2021-09-13] MEDS: Nicotine Polacrilex 2 MG GUM 4 MG BUCCAL ×2 (16:32→21:36)
[2021-09-13 18:00] VITALS: BP 124/80; PULSE 80; RESP 16; TEMP 36.3; O2SAT 96
[2021-09-13] MEDS: Melatonin 3 MG TABLET 9 MG PO (20:07)
[2021-09-13] MEDS: Mirtazapine 30 MG TABLET PO (20:08)
[2021-09-13] MEDS: lamoTRIgine 25 MG TABLET PO (20:08)
[2021-09-13] MEDS: Prazosin HCL 5 MG CAPSULE PO (20:08)
[2021-09-13 21:50] VITALS: BP 124/80; PULSE 80; RESP 16; TEMP 36.3; O2SAT 96
[2021-09-14 07:00] VITALS: BMI 36.5
[2021-09-14] MEDS: methADONE HCl 20 MG/2 ML ORAL.CONC 120 MG PO (09:26)
[2021-09-14] MEDS: cloNIDine HCL 0.1 MG TABLET PO ×2 (09:26→20:51)
[2021-09-14] MEDS: Venlafaxine HCl ER 75 MG CAP.ER.24H PO (09:27)
[2021-09-14] MEDS: buPROPion HCl XL 150 MG TAB.ER.24H PO (09:27)
[2021-09-14] MEDS: Atorvastatin Calcium 40 MG TABLET PO (09:27)
[2021-09-14] MEDS: Tamsulosin HCL 0.4 MG CAPSULE PO (09:27)
[2021-09-14] MEDS: ARIPiprazole 15 MG TABLET PO (09:27)
[2021-09-14] MEDS: buPROPion HCl XL 300 MG TAB.ER.24H PO (09:29)
[2021-09-14] MEDS: Gabapentin 600 MG TABLET PO ×3 (09:43→20:51)
[2021-09-14 09:46] VITALS: BP 128/59; PULSE 67; RESP 18; TEMP 36.3; O2SAT 97
[2021-09-14] MEDS: Nicotine Polacrilex 2 MG GUM 4 MG BUCCAL ×3 (13:30→21:01)
[2021-09-14] MEDS: Baclofen 10 MG TABLET PO (16:05)
--- NOTE | 2021-09-14 16:18 | P.PNPSI_ITS ---
Subjective Subjective Date of Service: 09/14/21 Reason For Visit: recurrent severe major depression, opioid use Subjective Notes: Conditional Voluntary Interim History: Discussed concerns about mother's terminal illness and conflict with partner. Pt and partner are scheduled to have a conversation this evening and pt will attempt to resolve differences. Review of current regime. Will begin to taper Abilify, titrate Risperdal to address racing thoughts in the absence of Depakote and increase Effexor to address depressive sx. Medication Compliance: Yes Side effects from medications: No Attending Groups: No Review of Systems Acute medical concerns: No Review of Systems Psychiatric: Reports abnormal sleep pattern, Reports anxiety, Reports depression, Reports difficulty concentrating, Reports hopelessness, Reports irritability, Reports anhedonia, Reports mood swings and Reports suicidal ideation Mental Status Exam Mental Status Exam Patient Appearance: Fatigued Patient Orientation: Person, Place, Time and Situation Level of Consciousness: Sedated and Alert Patient Behavior: Appropriate, Talkative, Cooperative, Anxious, Fatigued, Isolative and Good Eye Contact Mood Description: Depressed Affect Description: Flat Patient Cognition Impaired: No Ability to Follow Directions: Good Speech Pattern: Spontaneous Speech Memory Description: Episodic Impaired Hallucinations: None Delusions: Not Present Perceptual Disturbances: Depersonalization and Derealization Thought Process: Rumination Thought Content: positive for Circumstantial, positive for Perseveration and positive for Suicidal Ideation Depressive Symptoms: Increased Anxiety, Insomnia, Diff. Making Decisions, Increased Irritability, Difficulty Sleeping, Loss of Int. in Activity, Feelings of Worthlessness, Hopelessness, Isolating-Friends/Family, Feelings of Guilt, Unhappiness, Increased Fatigue, Thoughts of /Suicide, Low Self Esteem, Loss of Energy and Difficulty Concentrating Judgement: Fair Diagnostics Vital Signs (24Hr): Vital Signs - 24 hr 09/13/21 18:00 09/13/21 21:50 09/14/21 09:46 Temperature 97.3 F 97.3 F 97.4 F Pulse Rate 80 80 67 Respiratory Rate 16 16 18 Blood Pressure 124/80 124/80 128/59 L Pulse Oximetry 96 96 97 BMI result Body Mass Index 36.5 Labs Results: 09/10/21 16:55 09/10/21 16:27 Medications Medications Current Medications Acetaminophen (Acetaminophen 325 Mg Tablet) 650 mg PO Q6H PRN PRN Reason: Headache/Pain Mild Scale (1-3) Al Hydroxide/Mg Hydroxide (Magnesium Hydrox/Alum Hydrox 30 Ml Oral.Susp) 30 ml PO Q6H PRN PRN Reason: Heartburn/Nausea Aripiprazole (Aripiprazole 15 Mg Tablet) 15 mg PO DAILY [facility] Last Admin: 09/14/21 09:27 Dose: 15 mg Documented by: Atorvastatin Calcium (Atorvastatin Calcium 40 Mg Tablet) 40 mg PO DAILY [facility] Last Admin: 09/14/21 09:27 Dose: 40 mg Documented by: Baclofen (Baclofen 10 Mg Tablet) 10 mg PO TID PRN PRN Reason: muscle spasm Last Admin: 09/14/21 16:05 Dose: 10 mg Documented by: Bupropion HCl (Bupropion Hcl Xl 300 Mg Tab.Er.24h) 300 mg PO DAILY [facility] Last Admin: 09/14/21 09:29 Dose: 300 mg Documented by: Bupropion HCl (Bupropion Hcl Xl 150 Mg Tab.Er.24h) 150 mg PO DAILY [facility] Last Admin: 09/14/21 09:27 Dose: 150 mg Documented by: Clonidine HCl (Clonidine Hcl 0.1 Mg Tablet) 0.1 mg PO BID [facility]; Protocol Last Admin: 09/14/21 09:26 Dose: 0.1 mg Documented by: Doxycycline Hyclate (Doxycycline Hyclate 100 Mg Tablet) 100 mg PO BID [facility] Stop: 09/16/21 09:01 Last Admin: 09/14/21 09:27 Dose: 100 mg Documented by: Gabapentin (Gabapentin 600 Mg Tablet) 600 mg PO TID [facility] Last Admin: 09/14/21 14:12 Dose: 600 mg Documented by: Hydroxyzine HCl (Hydroxyzine Hcl 50 Mg Tablet) 50 mg PO TID PRN PRN Reason: Anxiety Hydroxyzine HCl (Hydroxyzine Hcl 25 Mg Tablet) 25 mg PO BEDTIME PRN PRN Reason: Anxiety Lamotrigine (Lamotrigine 25 Mg Tablet) 25 mg PO BEDTIME [facility] Last Admin: 09/13/21 20:08 Dose: 25 mg Documented by: Magnesium Hydroxide (Milk Of Magnesia 30 Ml Oral.Susp) 30 ml PO DAILY PRN PRN Reason: Constipation Melatonin (Melatonin 3 Mg Tablet) 9 mg PO BEDTIME [facility] Last Admin: 09/13/21 20:07 Dose: 9 mg Documented by: Methadone HCl (Methadone Hcl 20 Mg/2 Ml Oral.Conc) 120 mg PO DAILY [facility] Last Admin: 09/14/21 09:26 Dose: 120 mg Documented by: Mirtazapine (Mirtazapine 30 Mg Tablet) 30 mg PO BEDTIME [facility] Last Admin: 09/13/21 20:08 Dose: 30 mg Documented by: Naproxen (Naproxen 500 Mg Tablet) 500 mg PO BID PRN PRN Reason: Pain, Moderate (Pain Scale 4-6 Last Admin: 09/11/21 09:20 Dose: 500 mg Documented by: Nicotine Polacrilex (Nicotine Polacrilex 2 Mg Gum) 4 mg BUCCAL Q2H PRN PRN Reason: CRAVINGS Last Admin: 09/14/21 16:06 Dose: 4 mg Documented by: Non-Formulary Medication (Glecaprevir-Pibrentasvir [Mavyret]) 3 tab PO DAILY [facility] Prazosin HCl (Prazosin Hcl 5 Mg Capsule) 5 mg PO BEDTIME [facility]; Protocol Last Admin: 09/13/21 20:08 Dose: 5 mg Documented by: Risperidone (Risperidone 1 Mg Tablet) 1 mg PO BID PRN PRN Reason: agitation, anxiety Tamsulosin HCl (Tamsulosin Hcl 0.4 Mg Capsule) 0.4 mg PO DAILY [facility] Last Admin: 09/14/21 09:27 Dose: 0.4 mg Documented by: Trazodone HCl (Trazodone Hcl 100 Mg Tablet) 100 mg PO BEDTIME PRN PRN Reason: sleep Last Admin: 09/11/21 21:12 Dose: 100 mg Documented by: Venlafaxine HCl (Venlafaxine Hcl Er 37.5 Mg Cap.Er.24h) 112.5 mg PO DAILY [facility] Allergies Allergies Allergy/AdvReac Type Severity Reaction Status Date / Time shellfish derived Allergy Severe ANAPHAYLAXI Verified 09/10/21 07:36 [SHELLFISH DERIVED] A Assessment & Plan Assessment & Plan (1) Opioid use disorder, severe, dependence: Status: Acute Code(s): F11.20 - Opioid dependence, uncomplicated (2) MDD (major depressive disorder), recurrent episode, severe: Qualifiers: Psychotic features: with psychotic features Qualified Code(s): F33.3 - Major depressive disorder, recurrent, severe with psychotic symptoms Status: Chronic Code(s): F33.2 - Major depressive disorder, recurrent severe without psychotic features (3) PTSD (post-traumatic stress disorder): Status: Chronic Code(s): F43.10 - Post-traumatic stress disorder, unspecified (4) Cocaine use disorder: Status: Acute Code(s): F14.10 - Cocaine abuse, uncomplicated Plan Guillermo is a 36 y.o. male with history of depression, PTSD, chronic SI, substance abuse, opiate dependent on methadone. He has multiple inpatient psych admissions for relapse, SI, depression, and mood dysregulation. He has chronic homelessness with minimal family support, financial stress. Hx of non-adherence with follow up outpatient appointments. 1. Continue MAT, on Methadone 120 mg 2. Restarted on home meds with remeron 30mg QHS for insomnia. Hold Depakote 1500 mg QHS, VPA shows non-adherence. Recently started on risperdal 0.5 mg, but denies benefit, will not re-start. Monitor response to medications. Monitor for safety in the milieu. Discharge on stabilization. Patient seen. Chart reviewed. Discussed with team. 09/13/21 Increase Risperdal prn to 1 mg BID prn. Consider replacement of Abilify as target sx is racing of thought at bedtime. 09/14/21 -Risperdal 1 mg bid -Begin Abilify tapering -Increase Effexor to 112.5 mg daily I spent minutes with the patient and/or on the patient floor today, greater than?50% of which was spent counseling/coordinating care. Patient educated on: medication risk/benefits and therapeutic strategies Informed Consent: understands and further education needed Reason for contiued inpatient stay Substantial Risk for: harm to self, inability to function and rapid decompensation
[2021-09-14 20:35] VITALS: BP 129/78; PULSE 81
[2021-09-14] MEDS: Prazosin HCL 5 MG CAPSULE PO (20:50)
[2021-09-14] MEDS: risperiDONE 1 MG TABLET PO (20:51)
[2021-09-14] MEDS: lamoTRIgine 25 MG TABLET PO (20:51)
[2021-09-14] MEDS: Mirtazapine 30 MG TABLET PO (20:51)
[2021-09-14] MEDS: Melatonin 3 MG TABLET 9 MG PO (20:51)
[2021-09-15] MEDS: Tamsulosin HCL 0.4 MG CAPSULE PO (09:39)
[2021-09-15] MEDS: Atorvastatin Calcium 40 MG TABLET PO (09:39)
[2021-09-15] MEDS: ARIPiprazole 10 MG TABLET PO (09:39)
[2021-09-15] MEDS: methADONE HCl 20 MG/2 ML ORAL.CONC 120 MG PO (09:39)
[2021-09-15] MEDS: buPROPion HCl XL 300 MG TAB.ER.24H PO (09:40)
[2021-09-15] MEDS: Venlafaxine HCl ER 37.5 MG CAP.ER.24H 112.5 MG PO (09:40)
[2021-09-15] MEDS: risperiDONE 1 MG TABLET PO ×2 (09:40→20:01)
[2021-09-15] MEDS: cloNIDine HCL 0.1 MG TABLET PO ×2 (09:40→20:01)
[2021-09-15] MEDS: Gabapentin 600 MG TABLET PO ×3 (09:40→20:01)
[2021-09-15] MEDS: buPROPion HCl XL 150 MG TAB.ER.24H PO (09:40)
[2021-09-15 09:43] VITALS: BP 119/64; PULSE 98; RESP 18; TEMP 36.4; O2SAT 96
[2021-09-15] MEDS: Baclofen 10 MG TABLET PO ×3 (09:44→20:03)
[2021-09-15] MEDS: NaPROXEN 500 MG TABLET PO (10:57)
[2021-09-15] MEDS: Nicotine Polacrilex 2 MG GUM 4 MG BUCCAL ×2 (10:57→20:03)
--- NOTE | 2021-09-15 18:17 | HO.PSYCHPN ---
Subjective Subjective Date of Service: 09/15/21 Reason For Visit: recurrent severe major depression, opioid use Interim History: Pt reports partner plans to visit this evening. He is attempting resolution of their differences Tolerating medication changes Overwhelmed with current stressors Medication Compliance: Yes Side effects from medications: No Attending Groups: No Review of Systems Acute medical concerns: No Medical Review of Systems: unchanged Review of Systems Psychiatric: Reports abnormal sleep pattern, Reports anxiety, Reports depression, Reports difficulty concentrating, Reports hopelessness, Reports irritability, Reports anhedonia, Reports mood swings and Reports suicidal ideation Mental Status Exam Mental Status Exam Patient Appearance: Fatigued Patient Orientation: Person, Place, Time and Situation Level of Consciousness: Sedated and Alert Patient Behavior: Appropriate, Talkative, Cooperative, Anxious, Fatigued, Isolative and Good Eye Contact Mood Description: Depressed Affect Description: Flat Patient Cognition Impaired: No Ability to Follow Directions: Good Speech Pattern: Spontaneous Speech Memory Description: Episodic Impaired Hallucinations: None Delusions: Not Present Perceptual Disturbances: Depersonalization and Derealization Thought Process: Rumination Thought Content: positive for Circumstantial, positive for Perseveration and positive for Suicidal Ideation Depressive Symptoms: Increased Anxiety, Insomnia, Diff. Making Decisions, Increased Irritability, Difficulty Sleeping, Loss of Int. in Activity, Feelings of Worthlessness, Hopelessness, Isolating-Friends/Family, Feelings of Guilt, Unhappiness, Increased Fatigue, Thoughts of /Suicide, Low Self Esteem, Loss of Energy and Difficulty Concentrating Judgement: Fair Diagnostics Vital Signs (24Hr): Vital Signs - 24 hr 09/14/21 20:35 09/15/21 09:43 Temperature 97.6 F Pulse Rate 81 98 Respiratory Rate 18 Blood Pressure 129/78 119/64 Pulse Oximetry 96 BMI result Body Mass Index 36.5 Labs Results: 09/10/21 16:55 09/10/21 16:27 Medications Medications Current Medications Acetaminophen (Acetaminophen 325 Mg Tablet) 650 mg PO Q6H PRN PRN Reason: Headache/Pain Mild Scale (1-3) Al Hydroxide/Mg Hydroxide (Magnesium Hydrox/Alum Hydrox 30 Ml Oral.Susp) 30 ml PO Q6H PRN PRN Reason: Heartburn/Nausea Aripiprazole (Aripiprazole 10 Mg Tablet) 10 mg PO DAILY [facility] Last Admin: 09/15/21 09:39 Dose: 10 mg Documented by: Atorvastatin Calcium (Atorvastatin Calcium 40 Mg Tablet) 40 mg PO DAILY [facility] Last Admin: 09/15/21 09:39 Dose: 40 mg Documented by: Baclofen (Baclofen 10 Mg Tablet) 10 mg PO TID PRN PRN Reason: muscle spasm Last Admin: 09/15/21 14:10 Dose: 10 mg Documented by: Bupropion HCl (Bupropion Hcl Xl 300 Mg Tab.Er.24h) 300 mg PO DAILY [facility] Last Admin: 09/15/21 09:40 Dose: 300 mg Documented by: Bupropion HCl (Bupropion Hcl Xl 150 Mg Tab.Er.24h) 150 mg PO DAILY [facility] Last Admin: 09/15/21 09:40 Dose: 150 mg Documented by: Clonidine HCl (Clonidine Hcl 0.1 Mg Tablet) 0.1 mg PO BID [facility]; Protocol Last Admin: 09/15/21 09:40 Dose: 0.1 mg Documented by: Doxycycline Hyclate (Doxycycline Hyclate 100 Mg Tablet) 100 mg PO BID [facility] Stop: 09/16/21 09:01 Last Admin: 09/15/21 09:39 Dose: 100 mg Documented by: Gabapentin (Gabapentin 600 Mg Tablet) 600 mg PO TID [facility] Last Admin: 09/15/21 14:09 Dose: 600 mg Documented by: Hydroxyzine HCl (Hydroxyzine Hcl 50 Mg Tablet) 50 mg PO TID PRN PRN Reason: Anxiety Hydroxyzine HCl (Hydroxyzine Hcl 25 Mg Tablet) 25 mg PO BEDTIME PRN PRN Reason: Anxiety Lamotrigine (Lamotrigine 25 Mg Tablet) 25 mg PO BEDTIME [facility] Last Admin: 09/14/21 20:51 Dose: 25 mg Documented by: Magnesium Hydroxide (Milk Of Magnesia 30 Ml Oral.Susp) 30 ml PO DAILY PRN PRN Reason: Constipation Melatonin (Melatonin 3 Mg Tablet) 9 mg PO BEDTIME [facility] Last Admin: 09/14/21 20:51 Dose: 9 mg Documented by: Methadone HCl (Methadone Hcl 20 Mg/2 Ml Oral.Conc) 120 mg PO DAILY [facility] Last Admin: 09/15/21 09:39 Dose: 120 mg Documented by: Mirtazapine (Mirtazapine 30 Mg Tablet) 30 mg PO BEDTIME [facility] Last Admin: 09/14/21 20:51 Dose: 30 mg Documented by: Naproxen (Naproxen 500 Mg Tablet) 500 mg PO BID PRN PRN Reason: Pain, Moderate (Pain Scale 4-6 Last Admin: 09/15/21 10:57 Dose: 500 mg Documented by: Nicotine Polacrilex (Nicotine Polacrilex 2 Mg Gum) 4 mg BUCCAL Q2H PRN PRN Reason: CRAVINGS Last Admin: 09/15/21 10:57 Dose: 4 mg Documented by: Non-Formulary Medication (Glecaprevir-Pibrentasvir [Mavyret]) 3 tab PO DAILY [facility] Prazosin HCl (Prazosin Hcl 5 Mg Capsule) 5 mg PO BEDTIME [facility]; Protocol Last Admin: 09/14/21 20:50 Dose: 5 mg Documented by: Risperidone (Risperidone 1 Mg Tablet) 1 mg PO BID [facility] Last Admin: 09/15/21 09:40 Dose: 1 mg Documented by: Tamsulosin HCl (Tamsulosin Hcl 0.4 Mg Capsule) 0.4 mg PO DAILY [facility] Last Admin: 09/15/21 09:39 Dose: 0.4 mg Documented by: Trazodone HCl (Trazodone Hcl 100 Mg Tablet) 100 mg PO BEDTIME PRN PRN Reason: sleep Last Admin: 09/11/21 21:12 Dose: 100 mg Documented by: Venlafaxine HCl (Venlafaxine Hcl Er 37.5 Mg Cap.Er.24h) 112.5 mg PO DAILY [facility] Last Admin: 09/15/21 09:40 Dose: 112.5 mg Documented by: Allergies Allergies Allergy/AdvReac Type Severity Reaction Status Date / Time shellfish derived Allergy Severe ANAPHAYLAXI Verified 09/10/21 07:36 [SHELLFISH DERIVED] A Assessment & Plan Assessment & Plan (1) Opioid use disorder, severe, dependence: Status: Acute Code(s): F11.20 - Opioid dependence, uncomplicated (2) MDD (major depressive disorder), recurrent episode, severe: Qualifiers: Psychotic features: with psychotic features Qualified Code(s): F33.3 - Major depressive disorder, recurrent, severe with psychotic symptoms Status: Chronic Code(s): F33.2 - Major depressive disorder, recurrent severe without psychotic features (3) PTSD (post-traumatic stress disorder): Status: Chronic Code(s): F43.10 - Post-traumatic stress disorder, unspecified (4) Cocaine use disorder: Status: Acute Code(s): F14.10 - Cocaine abuse, uncomplicated Plan Guillermo is a 36 y.o. male with history of depression, PTSD, chronic SI, substance abuse, opiate dependent on methadone. He has multiple inpatient psych admissions for relapse, SI, depression, and mood dysregulation. He has chronic homelessness with minimal family support, financial stress. Hx of non-adherence with follow up outpatient appointments. 1. Continue MAT, on Methadone 120 mg 2. Restarted on home meds with remeron 30mg QHS for insomnia. Hold Depakote 1500 mg QHS, VPA shows non-adherence. Recently started on risperdal 0.5 mg, but denies benefit, will not re-start. Monitor response to medications. Monitor for safety in the milieu. Discharge on stabilization. Patient seen. Chart reviewed. Discussed with team. 09/13/21 Increase Risperdal prn to 1 mg BID prn. Consider replacement of Abilify as target sx is racing of thought at bedtime. 09/14/21 -Risperdal 1 mg bid -Begin Abilify tapering -Increase Effexor to 112.5 mg daily 09/15/21 Continue plan of care I spent minutes with the patient and/or on the patient floor today, greater than?50% of which was spent counseling/coordinating care. Reason for contiued inpatient stay Substantial Risk for: harm to self and inability to function
[2021-09-15 19:45] VITALS: BP 135/82; PULSE 78
[2021-09-15] MEDS: Melatonin 3 MG TABLET 9 MG PO (20:00)
[2021-09-15] MEDS: Prazosin HCL 5 MG CAPSULE PO (20:01)
[2021-09-15] MEDS: Mirtazapine 30 MG TABLET PO (20:01)
[2021-09-15] MEDS: lamoTRIgine 25 MG TABLET PO (20:01)
--- NOTE | 2021-09-16 07:50 | P.PNPSI_ITS ---
Subjective Subjective Date of Service: 09/16/21 Reason For Visit: recurrent severe major depression, opioid use Subjective Notes: Conditional Voluntary Healthcare Proxy: No Guardianship: No Interim History: Patient was seen and discussed in rounds today. Records and plans were reviewed. He has been doing better. He has a brighter affect. He is more social unresponsive. Continues to be isolative and guarded. Discharge is being planned for early next week. No complaints or side effects. Eating and sleeping adequately. No changes were made today Medication Compliance: Yes Side effects from medications: No Review of Systems Acute medical concerns: No Review of Systems Review of Systems Except for depression and anxiety and erratic sleep. Yes all other systems are reviewed and are negative Mental Status Exam Mental Status Exam Narrative: In today's visit he is alert, oriented and pleasant. Soft-spoken speech. Minimal eye contact. Affect is appropriate and constricted. No signs of psychosis. Somewhat guarded. Cognitively he has slow thought processes. No SI. Judgment is intact Diagnostics Vital Signs (24Hr): Vital Signs - 24 hr 09/15/21 09:43 09/15/21 19:45 Temperature 97.6 F Pulse Rate 98 78 Respiratory Rate 18 Blood Pressure 119/64 135/82 Pulse Oximetry 96 BMI result Body Mass Index 36.5 Labs Results: 09/10/21 16:55 09/10/21 16:27 Medications Medications Current Medications Acetaminophen (Acetaminophen 325 Mg Tablet) 650 mg PO Q6H PRN PRN Reason: Headache/Pain Mild Scale (1-3) Al Hydroxide/Mg Hydroxide (Magnesium Hydrox/Alum Hydrox 30 Ml Oral.Susp) 30 ml PO Q6H PRN PRN Reason: Heartburn/Nausea Aripiprazole (Aripiprazole 10 Mg Tablet) 10 mg PO DAILY [facility] Last Admin: 09/15/21 09:39 Dose: 10 mg Documented by: Atorvastatin Calcium (Atorvastatin Calcium 40 Mg Tablet) 40 mg PO DAILY [facility] Last Admin: 09/15/21 09:39 Dose: 40 mg Documented by: Baclofen (Baclofen 10 Mg Tablet) 10 mg PO TID PRN PRN Reason: muscle spasm Last Admin: 09/15/21 20:03 Dose: 10 mg Documented by: Bupropion HCl (Bupropion Hcl Xl 300 Mg Tab.Er.24h) 300 mg PO DAILY [facility] Last Admin: 09/15/21 09:40 Dose: 300 mg Documented by: Bupropion HCl (Bupropion Hcl Xl 150 Mg Tab.Er.24h) 150 mg PO DAILY [facility] Last Admin: 09/15/21 09:40 Dose: 150 mg Documented by: Clonidine HCl (Clonidine Hcl 0.1 Mg Tablet) 0.1 mg PO BID [facility]; Protocol Last Admin: 09/15/21 20:01 Dose: 0.1 mg Documented by: Doxycycline Hyclate (Doxycycline Hyclate 100 Mg Tablet) 100 mg PO BID [facility] Stop: 09/16/21 09:01 Last Admin: 09/15/21 20:01 Dose: 100 mg Documented by: Gabapentin (Gabapentin 600 Mg Tablet) 600 mg PO TID [facility] Last Admin: 09/15/21 20:01 Dose: 600 mg Documented by: Hydroxyzine HCl (Hydroxyzine Hcl 50 Mg Tablet) 50 mg PO TID PRN PRN Reason: Anxiety Hydroxyzine HCl (Hydroxyzine Hcl 25 Mg Tablet) 25 mg PO BEDTIME PRN PRN Reason: Anxiety Lamotrigine (Lamotrigine 25 Mg Tablet) 25 mg PO BEDTIME [facility] Last Admin: 09/15/21 20:01 Dose: 25 mg Documented by: Magnesium Hydroxide (Milk Of Magnesia 30 Ml Oral.Susp) 30 ml PO DAILY PRN PRN Reason: Constipation Melatonin (Melatonin 3 Mg Tablet) 9 mg PO BEDTIME [facility] Last Admin: 09/15/21 20:00 Dose: 9 mg Documented by: Methadone HCl (Methadone Hcl 20 Mg/2 Ml Oral.Conc) 120 mg PO DAILY [facility] Last Admin: 09/15/21 09:39 Dose: 120 mg Documented by: Mirtazapine (Mirtazapine 30 Mg Tablet) 30 mg PO BEDTIME [facility] Last Admin: 09/15/21 20:01 Dose: 30 mg Documented by: Naproxen (Naproxen 500 Mg Tablet) 500 mg PO BID PRN PRN Reason: Pain, Moderate (Pain Scale 4-6 Last Admin: 09/15/21 10:57 Dose: 500 mg Documented by: Nicotine Polacrilex (Nicotine Polacrilex 2 Mg Gum) 4 mg BUCCAL Q2H PRN PRN Reason: CRAVINGS Last Admin: 09/15/21 20:03 Dose: 4 mg Documented by: Non-Formulary Medication (Glecaprevir-Pibrentasvir [Mavyret]) 3 tab PO DAILY [facility] Prazosin HCl (Prazosin Hcl 5 Mg Capsule) 5 mg PO BEDTIME [facility]; Protocol Last Admin: 09/15/21 20:01 Dose: 5 mg Documented by: Risperidone (Risperidone 1 Mg Tablet) 1 mg PO BID [facility] Last Admin: 09/15/21 20:01 Dose: 1 mg Documented by: Tamsulosin HCl (Tamsulosin Hcl 0.4 Mg Capsule) 0.4 mg PO DAILY [facility] Last Admin: 09/15/21 09:39 Dose: 0.4 mg Documented by: Trazodone HCl (Trazodone Hcl 100 Mg Tablet) 100 mg PO BEDTIME PRN PRN Reason: sleep Last Admin: 09/11/21 21:12 Dose: 100 mg Documented by: Venlafaxine HCl (Venlafaxine Hcl Er 37.5 Mg Cap.Er.24h) 112.5 mg PO DAILY [facility] Last Admin: 09/15/21 09:40 Dose: 112.5 mg Documented by: Allergies Allergies Allergy/AdvReac Type Severity Reaction Status Date / Time shellfish derived Allergy Severe ANAPHAYLAXI Verified 09/10/21 07:36 [SHELLFISH DERIVED] A Assessment & Plan Assessment & Plan (1) Opioid use disorder, severe, dependence: Status: Acute Code(s): F11.20 - Opioid dependence, uncomplicated (2) MDD (major depressive disorder), recurrent episode, severe: Qualifiers: Psychotic features: with psychotic features Qualified Code(s): F33.3 - Major depressive disorder, recurrent, severe with psychotic symptoms Status: Chronic Code(s): F33.2 - Major depressive disorder, recurrent severe without psychotic features (3) PTSD (post-traumatic stress disorder): Status: Chronic Code(s): F43.10 - Post-traumatic stress disorder, unspecified (4) Cocaine use disorder: Status: Acute Code(s): F14.10 - Cocaine abuse, uncomplicated Plan Guillermo is a 36 y.o. male with history of depression, PTSD, chronic SI, substance abuse, opiate dependent on methadone. He has multiple inpatient psych admissions for relapse, SI, depression, and mood dysregulation. He has chronic homelessness with minimal family support, financial stress. Hx of non-adherence with follow up outpatient appointments. 1. Continue MAT, on Methadone 120 mg 2. Restarted on home meds with remeron 30mg QHS for insomnia. Hold Depakote 1500 mg QHS, VPA shows non-adherence. Recently started on risperdal 0.5 mg, but denies benefit, will not re-start. Monitor response to medications. Monitor for safety in the milieu. Discharge on stabilization. Patient seen. Chart reviewed. Discussed with team. 09/13/21 Increase Risperdal prn to 1 mg BID prn. Consider replacement of Abilify as target sx is racing of thought at bedtime. 09/14/21 -Risperdal 1 mg bid -Begin Abilify tapering -Increase Effexor to 112.5 mg daily 09/15/21 Continue plan of care 09/16/2021 continue current regimen and plans I spent minutes with the patient and/or on the patient floor today, greater than?50% of which was spent counseling/coordinating care. Reason for contiued inpatient stay Substantial Risk for: other
[2021-09-16] MEDS: methADONE HCl 20 MG/2 ML ORAL.CONC 120 MG PO (08:28)
[2021-09-16] MEDS: Tamsulosin HCL 0.4 MG CAPSULE PO (08:28)
[2021-09-16] MEDS: ARIPiprazole 10 MG TABLET PO (08:28)
[2021-09-16] MEDS: Gabapentin 600 MG TABLET PO ×3 (08:28→21:00)
[2021-09-16] MEDS: cloNIDine HCL 0.1 MG TABLET PO ×2 (08:29→20:59)
[2021-09-16] MEDS: buPROPion HCl XL 300 MG TAB.ER.24H PO (08:29)
[2021-09-16] MEDS: risperiDONE 1 MG TABLET PO ×2 (08:29→21:00)
[2021-09-16] MEDS: buPROPion HCl XL 150 MG TAB.ER.24H PO (08:29)
[2021-09-16] MEDS: Atorvastatin Calcium 40 MG TABLET PO (08:29)
[2021-09-16] MEDS: Venlafaxine HCl ER 37.5 MG CAP.ER.24H 112.5 MG PO (08:29)
[2021-09-16 08:31] VITALS: BP 114/59; PULSE 87; RESP 18; TEMP 36.2; O2SAT 96
[2021-09-16] MEDS: Nicotine Polacrilex 2 MG GUM 4 MG BUCCAL ×5 (09:33→21:00)
[2021-09-16] MEDS: Baclofen 10 MG TABLET PO (14:15)
[2021-09-16 17:35] VITALS: BP 99/58; PULSE 87; RESP 20; TEMP 36.3; O2SAT 97
[2021-09-16] MEDS: Melatonin 3 MG TABLET 9 MG PO (20:58)
[2021-09-16] MEDS: lamoTRIgine 25 MG TABLET PO (21:00)
[2021-09-16] MEDS: Mirtazapine 30 MG TABLET PO (21:00)
[2021-09-16] MEDS: Prazosin HCL 5 MG CAPSULE PO (21:00)
--- NOTE | 2021-09-17 07:47 | HO.PSYCHPN ---
Subjective Subjective Date of Service: 09/17/21 Reason For Visit: recurrent severe major depression, opioid use Subjective Notes: Conditional Voluntary Healthcare Proxy: No Guardianship: No Interim History: Patient was seen and discussed in rounds today. Records and plans were reviewed. He states that he continues to feel depressed and not wanting to leave but denies any active suicidal ideations. He talked about the recent change in his medications and some questions about it. He was informed that the medication changes may take some time to take effect. He has been visible. Eating and sleeping adequately. Denies any side effects. No changes were made today Medication Compliance: No Side effects from medications: No Review of Systems Review of Systems Except for depression and anxiety and erratic sleep. Yes all other systems are reviewed and are negative Mental Status Exam Mental Status Exam Narrative: In today's visit he is alert, oriented and pleasant. Soft-spoken speech. Goodeye contact. Affect is appropriate and constricted. No signs of psychosis. Somewhat guarded but more open than yesterday Cognitively he has slow thought processes. No acted SI but has wishes. Judgment is intact Diagnostics Vital Signs (24Hr): Vital Signs - 24 hr 09/16/21 08:31 09/16/21 17:35 Temperature 97.2 F 97.3 F Pulse Rate 87 87 Respiratory Rate 18 20 Blood Pressure 114/59 L 99/58 L Pulse Oximetry 96 97 BMI result Body Mass Index 36.5 Labs Results: 09/10/21 16:55 09/10/21 16:27 Medications Medications Current Medications Acetaminophen (Acetaminophen 325 Mg Tablet) 650 mg PO Q6H PRN PRN Reason: Headache/Pain Mild Scale (1-3) Al Hydroxide/Mg Hydroxide (Magnesium Hydrox/Alum Hydrox 30 Ml Oral.Susp) 30 ml PO Q6H PRN PRN Reason: Heartburn/Nausea Aripiprazole (Aripiprazole 10 Mg Tablet) 10 mg PO DAILY [facility] Last Admin: 09/16/21 08:28 Dose: 10 mg Documented by: Atorvastatin Calcium (Atorvastatin Calcium 40 Mg Tablet) 40 mg PO DAILY [facility] Last Admin: 09/16/21 08:29 Dose: 40 mg Documented by: Baclofen (Baclofen 10 Mg Tablet) 10 mg PO TID PRN PRN Reason: muscle spasm Last Admin: 09/16/21 14:15 Dose: 10 mg Documented by: Bupropion HCl (Bupropion Hcl Xl 300 Mg Tab.Er.24h) 300 mg PO DAILY [facility] Last Admin: 09/16/21 08:29 Dose: 300 mg Documented by: Bupropion HCl (Bupropion Hcl Xl 150 Mg Tab.Er.24h) 150 mg PO DAILY [facility] Last Admin: 09/16/21 08:29 Dose: 150 mg Documented by: Clonidine HCl (Clonidine Hcl 0.1 Mg Tablet) 0.1 mg PO BID [facility]; Protocol Last Admin: 09/16/21 20:59 Dose: 0.1 mg Documented by: Gabapentin (Gabapentin 600 Mg Tablet) 600 mg PO TID [facility] Last Admin: 09/16/21 21:00 Dose: 600 mg Documented by: Hydroxyzine HCl (Hydroxyzine Hcl 50 Mg Tablet) 50 mg PO TID PRN PRN Reason: Anxiety Hydroxyzine HCl (Hydroxyzine Hcl 25 Mg Tablet) 25 mg PO BEDTIME PRN PRN Reason: Anxiety Lamotrigine (Lamotrigine 25 Mg Tablet) 25 mg PO BEDTIME [facility] Last Admin: 09/16/21 21:00 Dose: 25 mg Documented by: Magnesium Hydroxide (Milk Of Magnesia 30 Ml Oral.Susp) 30 ml PO DAILY PRN PRN Reason: Constipation Melatonin (Melatonin 3 Mg Tablet) 9 mg PO BEDTIME [facility] Last Admin: 09/16/21 20:58 Dose: 9 mg Documented by: Methadone HCl (Methadone Hcl 20 Mg/2 Ml Oral.Conc) 120 mg PO DAILY [facility] Last Admin: 09/16/21 08:28 Dose: 120 mg Documented by: Mirtazapine (Mirtazapine 30 Mg Tablet) 30 mg PO BEDTIME [facility] Last Admin: 09/16/21 21:00 Dose: 30 mg Documented by: Naproxen (Naproxen 500 Mg Tablet) 500 mg PO BID PRN PRN Reason: Pain, Moderate (Pain Scale 4-6 Last Admin: 09/15/21 10:57 Dose: 500 mg Documented by: Nicotine Polacrilex (Nicotine Polacrilex 2 Mg Gum) 4 mg BUCCAL Q2H PRN PRN Reason: CRAVINGS Last Admin: 09/16/21 21:00 Dose: 4 mg Documented by: Non-Formulary Medication (Glecaprevir-Pibrentasvir [Mavyret]) 3 tab PO DAILY [facility] Prazosin HCl (Prazosin Hcl 5 Mg Capsule) 5 mg PO BEDTIME [facility]; Protocol Last Admin: 09/16/21 21:00 Dose: 5 mg Documented by: Risperidone (Risperidone 1 Mg Tablet) 1 mg PO BID [facility] Last Admin: 09/16/21 21:00 Dose: 1 mg Documented by: Tamsulosin HCl (Tamsulosin Hcl 0.4 Mg Capsule) 0.4 mg PO DAILY [facility] Last Admin: 09/16/21 08:28 Dose: 0.4 mg Documented by: Trazodone HCl (Trazodone Hcl 100 Mg Tablet) 100 mg PO BEDTIME PRN PRN Reason: sleep Last Admin: 09/11/21 21:12 Dose: 100 mg Documented by: Venlafaxine HCl (Venlafaxine Hcl Er 37.5 Mg Cap.Er.24h) 112.5 mg PO DAILY [facility] Last Admin: 09/16/21 08:29 Dose: 112.5 mg Documented by: Allergies Allergies Allergy/AdvReac Type Severity Reaction Status Date / Time shellfish derived Allergy Severe ANAPHAYLAXI Verified 09/10/21 07:36 [SHELLFISH DERIVED] A Assessment & Plan Assessment & Plan (1) Opioid use disorder, severe, dependence: Status: Acute Code(s): F11.20 - Opioid dependence, uncomplicated (2) MDD (major depressive disorder), recurrent episode, severe: Qualifiers: Psychotic features: with psychotic features Qualified Code(s): F33.3 - Major depressive disorder, recurrent, severe with psychotic symptoms Status: Chronic Code(s): F33.2 - Major depressive disorder, recurrent severe without psychotic features (3) PTSD (post-traumatic stress disorder): Status: Chronic Code(s): F43.10 - Post-traumatic stress disorder, unspecified (4) Cocaine use disorder: Status: Acute Code(s): F14.10 - Cocaine abuse, uncomplicated Plan Guillermo is a 36 y.o. male with history of depression, PTSD, chronic SI, substance abuse, opiate dependent on methadone. He has multiple inpatient psych admissions for relapse, SI, depression, and mood dysregulation. He has chronic homelessness with minimal family support, financial stress. Hx of non-adherence with follow up outpatient appointments. 1. Continue MAT, on Methadone 120 mg 2. Restarted on home meds with remeron 30mg QHS for insomnia. Hold Depakote 1500 mg QHS, VPA shows non-adherence. Recently started on risperdal 0.5 mg, but denies benefit, will not re-start. Monitor response to medications. Monitor for safety in the milieu. Discharge on stabilization. Patient seen. Chart reviewed. Discussed with team. 09/13/21 Increase Risperdal prn to 1 mg BID prn. Consider replacement of Abilify as target sx is racing of thought at bedtime. 09/14/21 -Risperdal 1 mg bid -Begin Abilify tapering -Increase Effexor to 112.5 mg daily 09/15/21 Continue plan of care 09/16/2021 continue current regimen and plans 09/17/2021: Continue current plans and regimen. No changes made today I spent minutes with the patient and/or on the patient floor today, greater than?50% of which was spent counseling/coordinating care. Patient educated on: medication risk/benefits Reason for contiued inpatient stay Substantial Risk for: med/psych decompensation
[2021-09-17] MEDS: cloNIDine HCL 0.1 MG TABLET PO ×2 (08:04→19:38)
[2021-09-17] MEDS: methADONE HCl 20 MG/2 ML ORAL.CONC 120 MG PO (08:04)
[2021-09-17] MEDS: Gabapentin 600 MG TABLET PO ×3 (08:05→19:38)
[2021-09-17] MEDS: risperiDONE 1 MG TABLET PO ×2 (08:05→19:38)
[2021-09-17] MEDS: Tamsulosin HCL 0.4 MG CAPSULE PO (08:05)
[2021-09-17] MEDS: buPROPion HCl XL 300 MG TAB.ER.24H PO (08:05)
[2021-09-17] MEDS: Venlafaxine HCl ER 37.5 MG CAP.ER.24H 112.5 MG PO (08:05)
[2021-09-17] MEDS: Atorvastatin Calcium 40 MG TABLET PO (08:05)
[2021-09-17] MEDS: ARIPiprazole 10 MG TABLET PO (08:05)
[2021-09-17] MEDS: buPROPion HCl XL 150 MG TAB.ER.24H PO (08:05)
[2021-09-17] MEDS: Nicotine Polacrilex 2 MG GUM 4 MG BUCCAL ×4 (08:10→19:38)
[2021-09-17 08:11] VITALS: BP 112/59; PULSE 89; RESP 18; TEMP 36.1; O2SAT 97
[2021-09-17] MEDS: Baclofen 10 MG TABLET PO ×2 (12:17→19:41)
[2021-09-17 19:37] VITALS: BP 125/74; PULSE 88
[2021-09-17] MEDS: Melatonin 3 MG TABLET 9 MG PO (19:37)
[2021-09-17] MEDS: Mirtazapine 30 MG TABLET PO (19:37)
[2021-09-17] MEDS: Prazosin HCL 5 MG CAPSULE PO (19:37)
[2021-09-17] MEDS: lamoTRIgine 25 MG TABLET PO (19:37)
[2021-09-18 06:00] VITALS: BP 114/57; PULSE 81; RESP 18; TEMP 36.4; O2SAT 95
[2021-09-18] MEDS: Venlafaxine HCl ER 37.5 MG CAP.ER.24H 112.5 MG PO (08:30)
[2021-09-18] MEDS: risperiDONE 1 MG TABLET PO (08:30)
[2021-09-18] MEDS: Tamsulosin HCL 0.4 MG CAPSULE PO (08:30)
[2021-09-18] MEDS: Baclofen 10 MG TABLET PO (08:30)
[2021-09-18] MEDS: methADONE HCl 20 MG/2 ML ORAL.CONC 120 MG PO (08:31)
[2021-09-18] MEDS: cloNIDine HCL 0.1 MG TABLET PO ×2 (08:31→19:56)
[2021-09-18] MEDS: buPROPion HCl XL 300 MG TAB.ER.24H PO (08:31)
[2021-09-18] MEDS: Nicotine Polacrilex 2 MG GUM 4 MG BUCCAL ×2 (08:31→10:54)
[2021-09-18] MEDS: Gabapentin 600 MG TABLET PO ×3 (08:31→19:56)
[2021-09-18] MEDS: ARIPiprazole 10 MG TABLET PO (08:31)
[2021-09-18] MEDS: Atorvastatin Calcium 40 MG TABLET PO (08:31)
[2021-09-18] MEDS: buPROPion HCl XL 150 MG TAB.ER.24H PO (08:31)
--- NOTE | 2021-09-18 09:43 | HO.PSYCHPN ---
Subjective Subjective Date of Service: 09/18/21 Reason For Visit: recurrent severe major depression, opioid use Interim History: Patient reports that he is still very depressed. He says if he leaves now, given his current depression, and goes back to we overwhelming task of taking care of his mother, he said he will probably become suicidal quickly. He has a difficult time knowing if any of his past medication regimen has been all that helpful. Patient lives at his mother's house and is her primary caregiver given that she is ill. He says that is really the only thing he does with his time and otherwise remains isolated. He said that his mood was okay for a little while on past regimen but that his depression remained and it did not take much for him to get overwhelmed at home and relapse which significantly and quickly worsened his depression resulting in admission. Currently he and primary team provider Ignacio have been working on tapering off Abilify and starting on Risperdal. Also titrating venlafaxine. Patient agrees to completely go off Abilify and increase Risperdal and increase venlafaxine. Discussed behavioral activation and patient said he push himself to attend more groups and to bathe regularly. Mental Status Exam Mental Status Exam Narrative: Patient Appearance:?Fatigued Patient Orientation:?Person, Place, Time and Situation Level of Consciousness:?Alert Patient Behavior:?limited eye contact, cooperative, but passive Mood Description:?Depressed Affect Description: congruent, blunted or?Flat Patient Cognition Impaired:?No Ability to Follow Directions:?Good Speech Pattern:?Spontaneous Speech Memory Description:?Episodic Impaired Hallucinations:?None Delusions:?Not Present Perceptual Disturbances:?Depersonalization and Derealization Thought Process:?goal oriented Thought Content: pt reports SI; denies HI; on overwhelming depression Depressive Symptoms:?Increased Anxiety, Insomnia, Diff. Making Decisions, Increased Irritability, Difficulty Sleeping, Loss of Int. in Activity, Feelings of Worthlessness, Hopelessness, Isolating-Friends/Family, Feelings of Guilt, Unhappiness, Increased Fatigue, Thoughts of /Suicide, Low Self Esteem, Loss of Energy and Difficulty Concentrating Judgement:?impaired Diagnostics Vital Signs (24Hr): Vital Signs - 24 hr 09/17/21 19:37 09/18/21 06:00 Temperature 97.6 F Pulse Rate 88 81 Respiratory Rate 18 Blood Pressure 125/74 114/57 L Pulse Oximetry 95 BMI result Body Mass Index 36.5 Labs Results: 09/10/21 16:55 09/10/21 16:27 Medications Medications Current Medications Acetaminophen (Acetaminophen 325 Mg Tablet) 650 mg PO Q6H PRN PRN Reason: Headache/Pain Mild Scale (1-3) Al Hydroxide/Mg Hydroxide (Magnesium Hydrox/Alum Hydrox 30 Ml Oral.Susp) 30 ml PO Q6H PRN PRN Reason: Heartburn/Nausea Aripiprazole (Aripiprazole 10 Mg Tablet) 10 mg PO DAILY [facility] Last Admin: 09/18/21 08:31 Dose: 10 mg Documented by: Atorvastatin Calcium (Atorvastatin Calcium 40 Mg Tablet) 40 mg PO DAILY [facility] Last Admin: 09/18/21 08:31 Dose: 40 mg Documented by: Baclofen (Baclofen 10 Mg Tablet) 10 mg PO TID PRN PRN Reason: muscle spasm Last Admin: 09/18/21 08:30 Dose: 10 mg Documented by: Bupropion HCl (Bupropion Hcl Xl 300 Mg Tab.Er.24h) 300 mg PO DAILY [facility] Last Admin: 09/18/21 08:31 Dose: 300 mg Documented by: Bupropion HCl (Bupropion Hcl Xl 150 Mg Tab.Er.24h) 150 mg PO DAILY [facility] Last Admin: 09/18/21 08:31 Dose: 150 mg Documented by: Clonidine HCl (Clonidine Hcl 0.1 Mg Tablet) 0.1 mg PO BID [facility]; Protocol Last Admin: 09/18/21 08:31 Dose: 0.1 mg Documented by: Gabapentin (Gabapentin 600 Mg Tablet) 600 mg PO TID [facility] Last Admin: 09/18/21 08:31 Dose: 600 mg Documented by: Hydroxyzine HCl (Hydroxyzine Hcl 50 Mg Tablet) 50 mg PO TID PRN PRN Reason: Anxiety Hydroxyzine HCl (Hydroxyzine Hcl 25 Mg Tablet) 25 mg PO BEDTIME PRN PRN Reason: Anxiety Lamotrigine (Lamotrigine 25 Mg Tablet) 25 mg PO BEDTIME [facility] Last Admin: 09/17/21 19:37 Dose: 25 mg Documented by: Magnesium Hydroxide (Milk Of Magnesia 30 Ml Oral.Susp) 30 ml PO DAILY PRN PRN Reason: Constipation Melatonin (Melatonin 3 Mg Tablet) 9 mg PO BEDTIME [facility] Last Admin: 09/17/21 19:37 Dose: 9 mg Documented by: Methadone HCl (Methadone Hcl 20 Mg/2 Ml Oral.Conc) 120 mg PO DAILY [facility] Last Admin: 09/18/21 08:31 Dose: 120 mg Documented by: Mirtazapine (Mirtazapine 30 Mg Tablet) 30 mg PO BEDTIME [facility] Last Admin: 09/17/21 19:37 Dose: 30 mg Documented by: Naproxen (Naproxen 500 Mg Tablet) 500 mg PO BID PRN PRN Reason: Pain, Moderate (Pain Scale 4-6 Last Admin: 09/15/21 10:57 Dose: 500 mg Documented by: Nicotine Polacrilex (Nicotine Polacrilex 2 Mg Gum) 4 mg BUCCAL Q2H PRN PRN Reason: CRAVINGS Last Admin: 09/18/21 08:31 Dose: 4 mg Documented by: Prazosin HCl (Prazosin Hcl 5 Mg Capsule) 5 mg PO BEDTIME [facility]; Protocol Last Admin: 09/17/21 19:37 Dose: 5 mg Documented by: Risperidone (Risperidone 1 Mg Tablet) 1 mg PO BID [facility] Last Admin: 09/18/21 08:30 Dose: 1 mg Documented by: Tamsulosin HCl (Tamsulosin Hcl 0.4 Mg Capsule) 0.4 mg PO DAILY [facility] Last Admin: 09/18/21 08:30 Dose: 0.4 mg Documented by: Trazodone HCl (Trazodone Hcl 100 Mg Tablet) 100 mg PO BEDTIME PRN PRN Reason: sleep Last Admin: 09/11/21 21:12 Dose: 100 mg Documented by: Venlafaxine HCl (Venlafaxine Hcl Er 37.5 Mg Cap.Er.24h) 112.5 mg PO DAILY [facility] Last Admin: 09/18/21 08:30 Dose: 112.5 mg Documented by: Allergies Allergies Allergy/AdvReac Type Severity Reaction Status Date / Time shellfish derived Allergy Severe ANAPHAYLAXI Verified 09/10/21 07:36 [SHELLFISH DERIVED] A Assessment & Plan Assessment & Plan (1) Opioid use disorder, severe, dependence: Status: Acute Code(s): F11.20 - Opioid dependence, uncomplicated (2) MDD (major depressive disorder), recurrent episode, severe: Qualifiers: Psychotic features: with psychotic features Qualified Code(s): F33.3 - Major depressive disorder, recurrent, severe with psychotic symptoms Status: Chronic Code(s): F33.2 - Major depressive disorder, recurrent severe without psychotic features (3) PTSD (post-traumatic stress disorder): Status: Chronic Code(s): F43.10 - Post-traumatic stress disorder, unspecified (4) Cocaine use disorder: Status: Acute Code(s): F14.10 - Cocaine abuse, uncomplicated Plan Guillermo is a 36 y.o. male with history of depression, PTSD, chronic SI, substance abuse, opiate dependent on methadone. He has multiple inpatient psych admissions for relapse, SI, depression, and mood dysregulation. He has chronic homelessness with minimal family support, financial stress. Hx of non-adherence with follow up outpatient appointments. 09/13/21 Increase Risperdal prn to 1 mg BID prn. Consider replacement of Abilify as target sx is racing of thought at bedtime. 09/14/21 -Risperdal 1 mg bid -Begin Abilify tapering -Increase Effexor to 112.5 mg daily 09/15/21 Continue plan of care 09/16/2021 continue current regimen and plans 09/17/2021: Continue current plans and regimen. No changes made today 09/18 Supervisor [employer] Control Operators covering: Patient remains depressed with SI. Patient would like to continue with Ignacio plan and will discontinue Abilify and increase Risperdal. Also will increase venlafaxine; discussed [place] and pt is open PLAN: CV q15 INCREASE TO Risperdal 3mg qhs DC Abilify (plan has been to taper of and dc)\ INCREASE venlafaxine ER to 150 mg daily Continue MAT, on Methadone 120 mg Continue Remeron 30mg (Restarted on home meds with remeron 30mg QHS for insomnia) Hold Depakote 1500 mg QHS, VPA shows non-adherence. Monitor response to medications. Monitor for safety in the milieu. Discharge on stabilization. Patient seen. Chart reviewed. Discussed with team. I spent minutes with the patient and/or on the patient floor today, greater than?50% of which was spent counseling/coordinating care. Patient educated on: diagnosis, medication risk/benefits and substance abuse Informed Consent: understands Reason for contiued inpatient stay Substantial Risk for: rapid decompensation
[2021-09-18 19:35] VITALS: BP 137/70; PULSE 80
[2021-09-18] MEDS: Melatonin 3 MG TABLET 9 MG PO (19:56)
[2021-09-18] MEDS: lamoTRIgine 25 MG TABLET PO (19:56)
[2021-09-18] MEDS: Prazosin HCL 5 MG CAPSULE PO (19:56)
[2021-09-18] MEDS: risperiDONE 3 MG TABLET PO (19:56)
[2021-09-18] MEDS: Mirtazapine 30 MG TABLET PO (19:56)
[2021-09-19 06:00] VITALS: BP 134/72; PULSE 102; RESP 18; TEMP 36.8; O2SAT 97
[2021-09-19] MEDS: Baclofen 10 MG TABLET PO ×2 (08:13→21:11)
[2021-09-19] MEDS: methADONE HCl 20 MG/2 ML ORAL.CONC 120 MG PO (08:13)
[2021-09-19] MEDS: Tamsulosin HCL 0.4 MG CAPSULE PO (08:13)
[2021-09-19] MEDS: buPROPion HCl XL 150 MG TAB.ER.24H PO (08:13)
[2021-09-19] MEDS: Atorvastatin Calcium 40 MG TABLET PO (08:13)
[2021-09-19] MEDS: Gabapentin 600 MG TABLET PO ×3 (08:13→21:09)
[2021-09-19] MEDS: cloNIDine HCL 0.1 MG TABLET PO ×2 (08:13→21:09)
[2021-09-19] MEDS: buPROPion HCl XL 300 MG TAB.ER.24H PO (08:13)
[2021-09-19] MEDS: Venlafaxine HCl ER 150 MG CAP.ER.24H PO (08:13)
[2021-09-19] MEDS: Nicotine Polacrilex 2 MG GUM 4 MG BUCCAL ×2 (08:38→15:39)
--- NOTE | 2021-09-19 13:12 | HO.PSYCHPN ---
Subjective Subjective Date of Service: 09/19/21 Reason For Visit: recurrent severe major depression, opioid use Interim History: Patient reports that he did sleep better last night with increased Risperdal. He also said that today so far he has not been having bad thoughts including SI. His speech is still latent any still has thought blocking which is not his baseline. Patient says he is still depressed and affect is congruent, distant and blunted. He hopes that current regimen will help correct this but struggles to be optimistic as he reports his chronic depression has never really changed much and not for very long. Patient asked if there was medication available for daytime PTSD thoughts which he says still plagued him and patient will try hydroxyzine to see if it can help. Mental Status Exam Mental Status Exam Narrative: Patient Appearance:?Fatigued Patient Orientation:?Person, Place, Time and Situation Level of Consciousness:?Alert Patient Behavior:?limited eye contact, cooperative, but passive Mood Description:?Depressed Affect Description: little odd, blunted or?Flat Patient Cognition Impaired:?No Ability to Follow Directions:?Good Speech Pattern:?Spontaneous Speech Memory Description:?Episodic Impaired Hallucinations:?None Delusions:?Not Present Perceptual Disturbances:?Depersonalization and Derealization Thought Process:?goal oriented Thought Content: pt denies SI; denies HI; on dealing depression Judgment:?impaired but improving Diagnostics Vital Signs (24Hr): Vital Signs - 24 hr 09/18/21 19:35 09/19/21 06:00 Temperature 98.2 F Pulse Rate 80 102 H Respiratory Rate 18 Blood Pressure 137/70 134/72 Pulse Oximetry 97 BMI result Body Mass Index 36.5 Labs Results: 09/10/21 16:55 09/10/21 16:27 Medications Medications Current Medications Acetaminophen (Acetaminophen 325 Mg Tablet) 650 mg PO Q6H PRN PRN Reason: Headache/Pain Mild Scale (1-3) Al Hydroxide/Mg Hydroxide (Magnesium Hydrox/Alum Hydrox 30 Ml Oral.Susp) 30 ml PO Q6H PRN PRN Reason: Heartburn/Nausea Atorvastatin Calcium (Atorvastatin Calcium 40 Mg Tablet) 40 mg PO DAILY [facility] Last Admin: 09/19/21 08:13 Dose: 40 mg Documented by: Baclofen (Baclofen 10 Mg Tablet) 10 mg PO TID PRN PRN Reason: muscle spasm Last Admin: 09/19/21 08:13 Dose: 10 mg Documented by: Bupropion HCl (Bupropion Hcl Xl 300 Mg Tab.Er.24h) 300 mg PO DAILY [facility] Last Admin: 09/19/21 08:13 Dose: 300 mg Documented by: Bupropion HCl (Bupropion Hcl Xl 150 Mg Tab.Er.24h) 150 mg PO DAILY [facility] Last Admin: 09/19/21 08:13 Dose: 150 mg Documented by: Clonidine HCl (Clonidine Hcl 0.1 Mg Tablet) 0.1 mg PO BID [facility]; Protocol Last Admin: 09/19/21 08:13 Dose: 0.1 mg Documented by: Gabapentin (Gabapentin 600 Mg Tablet) 600 mg PO TID [facility] Last Admin: 09/19/21 08:13 Dose: 600 mg Documented by: Hydroxyzine HCl (Hydroxyzine Hcl 50 Mg Tablet) 50 mg PO TID PRN PRN Reason: Anxiety Lamotrigine (Lamotrigine 25 Mg Tablet) 25 mg PO BEDTIME [facility] Last Admin: 09/18/21 19:56 Dose: 25 mg Documented by: Magnesium Hydroxide (Milk Of Magnesia 30 Ml Oral.Susp) 30 ml PO DAILY PRN PRN Reason: Constipation Melatonin (Melatonin 3 Mg Tablet) 9 mg PO BEDTIME [facility] Last Admin: 09/18/21 19:56 Dose: 9 mg Documented by: Methadone HCl (Methadone Hcl 20 Mg/2 Ml Oral.Conc) 120 mg PO DAILY [facility] Last Admin: 09/19/21 08:13 Dose: 120 mg Documented by: Mirtazapine (Mirtazapine 30 Mg Tablet) 30 mg PO BEDTIME [facility] Last Admin: 09/18/21 19:56 Dose: 30 mg Documented by: Naproxen (Naproxen 500 Mg Tablet) 500 mg PO BID PRN PRN Reason: Pain, Moderate (Pain Scale 4-6 Last Admin: 09/15/21 10:57 Dose: 500 mg Documented by: Nicotine Polacrilex (Nicotine Polacrilex 2 Mg Gum) 4 mg BUCCAL Q2H PRN PRN Reason: CRAVINGS Last Admin: 09/19/21 08:38 Dose: 4 mg Documented by: Prazosin HCl (Prazosin Hcl 5 Mg Capsule) 5 mg PO BEDTIME [facility]; Protocol Last Admin: 09/18/21 19:56 Dose: 5 mg Documented by: Risperidone (Risperidone 3 Mg Tablet) 3 mg PO BEDTIME [facility] Last Admin: 09/18/21 19:56 Dose: 3 mg Documented by: Tamsulosin HCl (Tamsulosin Hcl 0.4 Mg Capsule) 0.4 mg PO DAILY [facility] Last Admin: 09/19/21 08:13 Dose: 0.4 mg Documented by: Trazodone HCl (Trazodone Hcl 100 Mg Tablet) 100 mg PO BEDTIME PRN PRN Reason: sleep Last Admin: 09/11/21 21:12 Dose: 100 mg Documented by: Trazodone HCl (Trazodone Hcl 25 Mg Halftab) 25 mg PO BEDTIME PRN PRN Reason: early waking/continued insomni Venlafaxine HCl (Venlafaxine Hcl Er 150 Mg Cap.Er.24h) 150 mg PO DAILY [facility] Last Admin: 09/19/21 08:13 Dose: 150 mg Documented by: Allergies Allergies Allergy/AdvReac Type Severity Reaction Status Date / Time shellfish derived Allergy Severe ANAPHAYLAXI Verified 09/10/21 07:36 [SHELLFISH DERIVED] A Assessment & Plan Assessment & Plan (1) Opioid use disorder, severe, dependence: Status: Acute Code(s): F11.20 - Opioid dependence, uncomplicated (2) MDD (major depressive disorder), recurrent episode, severe: Qualifiers: Psychotic features: with psychotic features Qualified Code(s): F33.3 - Major depressive disorder, recurrent, severe with psychotic symptoms Status: Chronic Code(s): F33.2 - Major depressive disorder, recurrent severe without psychotic features (3) PTSD (post-traumatic stress disorder): Status: Chronic Code(s): F43.10 - Post-traumatic stress disorder, unspecified (4) Cocaine use disorder: Status: Acute Code(s): F14.10 - Cocaine abuse, uncomplicated Plan Guillermo is a 36 y.o. male with history of depression, PTSD, chronic SI, substance abuse, opiate dependent on methadone. He has multiple inpatient psych admissions for relapse, SI, depression, and mood dysregulation. He has chronic homelessness with minimal family support, financial stress. Hx of non-adherence with follow up outpatient appointments. 09/13/21 Increase Risperdal prn to 1 mg BID prn. Consider replacement of Abilify as target sx is racing of thought at bedtime. 09/14/21 -Risperdal 1 mg bid -Begin Abilify tapering -Increase Effexor to 112.5 mg daily 09/15/21 Continue plan of care 09/16/2021 continue current regimen and plans 09/17/2021: Continue current plans and regimen. No changes made today 09/18 Adult Specialist covering: Patient remains depressed with SI. Patient would like to continue with Ignacio plan and will discontinue Abilify and increase Risperdal. Also will increase venlafaxine; discussed [place] and pt is open 09/19 Patient reports that he did sleep better last night with increased Risperdal. He also said that today so far he has not been having bad thoughts including SI. His speech is still latent any still has thought blocking which is not his baseline; perhaps there is some disassociation occurring with PTSD. Discussed auditory hallucinations which are just present when he is upset. Patient says he is still depressed and affect is congruent, distant and blunted, however as mentioned SI not present today. He hopes that current regimen will help correct this but struggles to be optimistic as he reports his chronic depression has never really changed much and not for very long. Patient asked if there was medication available for daytime PTSD thoughts which he says still plagued him and patient will try hydroxyzine to see if it can help. -newspaper writer discussed substance abuse issues and that patient would benefit from increased support in the community which patient does agree. PLAN: CV q15 Risperdal 3mg qhs DC Abilify (plan has been to taper of and dc)\ INCREASE venlafaxine ER to 150 mg daily Continue MAT, on Methadone 120 mg Continue Remeron 30mg (Restarted on home meds with remeron 30mg QHS for insomnia) Hold Depakote 1500 mg QHS, VPA shows non-adherence. Monitor response to medications. Monitor for safety in the milieu. Discharge on stabilization. Patient seen. Chart reviewed. Discussed with team. I spent minutes with the patient and/or on the patient floor today, greater than?50% of which was spent counseling/coordinating care. Patient educated on: diagnosis and substance abuse Informed Consent: understands Reason for contiued inpatient stay Substantial Risk for: med/psych decompensation
[2021-09-19 18:00] VITALS: BP 114/84; PULSE 83; RESP 18; TEMP 36.2; O2SAT 96
[2021-09-19] MEDS: lamoTRIgine 25 MG TABLET PO (21:10)
[2021-09-19] MEDS: Melatonin 3 MG TABLET 9 MG PO (21:10)
[2021-09-19] MEDS: Mirtazapine 30 MG TABLET PO (21:11)
[2021-09-19] MEDS: risperiDONE 3 MG TABLET PO (21:11)
[2021-09-19] MEDS: Prazosin HCL 5 MG CAPSULE PO (21:11)
[2021-09-20] MEDS: Atorvastatin Calcium 40 MG TABLET PO (08:08)
[2021-09-20] MEDS: Venlafaxine HCl ER 150 MG CAP.ER.24H PO (08:08)
[2021-09-20] MEDS: buPROPion HCl XL 300 MG TAB.ER.24H PO (08:08)
[2021-09-20] MEDS: Tamsulosin HCL 0.4 MG CAPSULE PO (08:08)
[2021-09-20] MEDS: cloNIDine HCL 0.1 MG TABLET PO ×2 (08:08→21:18)
[2021-09-20] MEDS: Baclofen 10 MG TABLET PO ×3 (08:09→21:20)
[2021-09-20] MEDS: buPROPion HCl XL 150 MG TAB.ER.24H PO (08:09)
[2021-09-20] MEDS: methADONE HCl 20 MG/2 ML ORAL.CONC 120 MG PO (08:09)
[2021-09-20] MEDS: Gabapentin 600 MG TABLET PO ×3 (08:09→21:19)
[2021-09-20 08:16] VITALS: BP 114/62; PULSE 81; TEMP 36.6; O2SAT 96
--- NOTE | 2021-09-20 09:36 | P.PNPSI_ITS ---
Subjective Subjective Date of Service: 09/20/21 Reason For Visit: recurrent severe major depression, opioid use Interim History: less latent, more present. [employer] discussed how in previous days patient seemed to be distant with some speech latency, but pt says he was not aware. pt says doing ok he says he's still depressed but no SI. Pt said he talked to his mother today, that she misses him and that he wants to dc saturday to return home. Pt says he likes the idea of a transition coach and agrees it will help w/ sobriety; also discussed ongoing therapy and how sometimes a person continues with it for over a year which surprised patient. Discussed safety plan if patients unsafe and he will reach out right away and come to ED if this occurs. Mental Status Exam Mental Status Exam Narrative: Patient Appearance:?appropriate, casual cloths Patient Orientation:?Person, Place, Time and Situation Level of Consciousness:?Alert Patient Behavior:?appropriate eye contact, cooperative Mood Description:?Depressed Affect Description: more present but congruent Patient Cognition Impaired:?No Ability to Follow Directions:?Good Speech Pattern:?Spontaneous Speech Memory Description:?Episodic Impaired Hallucinations:?None Delusions:?Not Present Perceptual Disturbances:?intermittent Depersonalization Thought Process:?goal oriented, linear Thought Content: pt denies SI; denies HI; on dealing depression Judgment:?impaired but improving and adequate Diagnostics Vital Signs (24Hr): Vital Signs - 24 hr 09/19/21 18:00 09/20/21 08:16 Temperature 97.2 F 97.9 F Pulse Rate 83 81 Respiratory Rate 18 Blood Pressure 114/84 114/62 Pulse Oximetry 96 96 BMI result Body Mass Index 36.5 Labs Results: 09/10/21 16:55 09/10/21 16:27 Medications Medications Current Medications Acetaminophen (Acetaminophen 325 Mg Tablet) 650 mg PO Q6H PRN PRN Reason: Headache/Pain Mild Scale (1-3) Al Hydroxide/Mg Hydroxide (Magnesium Hydrox/Alum Hydrox 30 Ml Oral.Susp) 30 ml PO Q6H PRN PRN Reason: Heartburn/Nausea Atorvastatin Calcium (Atorvastatin Calcium 40 Mg Tablet) 40 mg PO DAILY [facility] Last Admin: 09/20/21 08:08 Dose: 40 mg Documented by: Baclofen (Baclofen 10 Mg Tablet) 10 mg PO TID PRN PRN Reason: muscle spasm Last Admin: 09/20/21 08:09 Dose: 10 mg Documented by: Bupropion HCl (Bupropion Hcl Xl 300 Mg Tab.Er.24h) 300 mg PO DAILY [facility] Last Admin: 09/20/21 08:08 Dose: 300 mg Documented by: Bupropion HCl (Bupropion Hcl Xl 150 Mg Tab.Er.24h) 150 mg PO DAILY [facility] Last Admin: 09/20/21 08:09 Dose: 150 mg Documented by: Clonidine HCl (Clonidine Hcl 0.1 Mg Tablet) 0.1 mg PO BID [facility]; Protocol Last Admin: 09/20/21 08:08 Dose: 0.1 mg Documented by: Gabapentin (Gabapentin 600 Mg Tablet) 600 mg PO TID [facility] Last Admin: 09/20/21 08:09 Dose: 600 mg Documented by: Hydroxyzine HCl (Hydroxyzine Hcl 50 Mg Tablet) 50 mg PO TID PRN PRN Reason: Anxiety Lamotrigine (Lamotrigine 25 Mg Tablet) 25 mg PO BEDTIME [facility] Last Admin: 09/19/21 21:10 Dose: 25 mg Documented by: Magnesium Hydroxide (Milk Of Magnesia 30 Ml Oral.Susp) 30 ml PO DAILY PRN PRN Reason: Constipation Melatonin (Melatonin 3 Mg Tablet) 9 mg PO BEDTIME [facility] Last Admin: 09/19/21 21:10 Dose: 9 mg Documented by: Methadone HCl (Methadone Hcl 20 Mg/2 Ml Oral.Conc) 120 mg PO DAILY [facility] Last Admin: 09/20/21 08:09 Dose: 120 mg Documented by: Mirtazapine (Mirtazapine 30 Mg Tablet) 30 mg PO BEDTIME [facility] Last Admin: 09/19/21 21:11 Dose: 30 mg Documented by: Naproxen (Naproxen 500 Mg Tablet) 500 mg PO BID PRN PRN Reason: Pain, Moderate (Pain Scale 4-6 Last Admin: 09/15/21 10:57 Dose: 500 mg Documented by: Nicotine Polacrilex (Nicotine Polacrilex 2 Mg Gum) 4 mg BUCCAL Q2H PRN PRN Reason: CRAVINGS Last Admin: 09/19/21 15:39 Dose: 4 mg Documented by: Prazosin HCl (Prazosin Hcl 5 Mg Capsule) 5 mg PO BEDTIME [facility]; Protocol Last Admin: 09/19/21 21:11 Dose: 5 mg Documented by: Risperidone (Risperidone 3 Mg Tablet) 3 mg PO BEDTIME [facility] Last Admin: 09/19/21 21:11 Dose: 3 mg Documented by: Tamsulosin HCl (Tamsulosin Hcl 0.4 Mg Capsule) 0.4 mg PO DAILY [facility] Last Admin: 09/20/21 08:08 Dose: 0.4 mg Documented by: Trazodone HCl (Trazodone Hcl 100 Mg Tablet) 100 mg PO BEDTIME PRN PRN Reason: sleep Last Admin: 09/11/21 21:12 Dose: 100 mg Documented by: Trazodone HCl (Trazodone Hcl 25 Mg Halftab) 25 mg PO BEDTIME PRN PRN Reason: early waking/continued insomni Venlafaxine HCl (Venlafaxine Hcl Er 150 Mg Cap.Er.24h) 150 mg PO DAILY [facility] Last Admin: 09/20/21 08:08 Dose: 150 mg Documented by: Allergies Allergies Allergy/AdvReac Type Severity Reaction Status Date / Time shellfish derived Allergy Severe ANAPHAYLAXI Verified 09/10/21 07:36 [SHELLFISH DERIVED] A Assessment & Plan Assessment & Plan (1) Opioid use disorder, severe, dependence: Status: Acute Code(s): F11.20 - Opioid dependence, uncomplicated (2) MDD (major depressive disorder), recurrent episode, severe: Qualifiers: Psychotic features: with psychotic features Qualified Code(s): F33.3 - Major depressive disorder, recurrent, severe with psychotic symptoms Status: Chronic Code(s): F33.2 - Major depressive disorder, recurrent severe without psychotic features (3) PTSD (post-traumatic stress disorder): Status: Chronic Code(s): F43.10 - Post-traumatic stress disorder, unspecified (4) Cocaine use disorder: Status: Acute Code(s): F14.10 - Cocaine abuse, uncomplicated Plan Guillermo is a 36 y.o. male with history of depression, PTSD, chronic SI, substance abuse, opiate dependent on methadone. He has multiple inpatient psych admissions for relapse, SI, depression, and mood dysregulation. He has chronic homelessness with minimal family support, financial stress. Hx of non-adherence with follow up outpatient appointments. 09/13/21 Increase Risperdal prn to 1 mg BID prn. Consider replacement of Abilify as target sx is racing of thought at bedtime. 09/14/21 -Risperdal 1 mg bid -Begin Abilify tapering -Increase Effexor to 112.5 mg daily 09/15/21 Continue plan of care 09/16/2021 continue current regimen and plans 09/17/2021: Continue current plans and regimen. No changes made today 09/18 [employer] covering: Patient remains depressed with SI. Patient would like to continue with [facility]- [facility] plan and will discontinue Abilify and increase Risperdal. Also will increase venlafaxine; discussed [place] and pt is open 09/19 Patient reports that he did sleep better last night with increased Risperdal. He also said that today so far he has not been having bad thoughts including SI. His speech is still latent any still has thought blocking which is not his baseline; perhaps there is some disassociation occurring with PTSD. Discussed auditory hallucinations which are just present when he is upset. Patient says he is still depressed and affect is congruent, distant and blunted, however as mentioned SI not present today. He hopes that current regimen will help correct this but struggles to be optimistic as he reports his chronic depression has never really changed much and not for very long. Patient asked if there was medication available for daytime PTSD thoughts which he says still plagued him and patient will try hydroxyzine to see if it can help. -chart writer discussed substance abuse issues and that patient would benefit from increased support in the community which patient does agree. 09/20 pt more present, engaged; remains depressed but no SI and mood is better. Wants transition coach to help w/ sobriety. Pt says he'd like to DC Saturday, feeling need to get back to helping his mother. Discussed continuing to do med management as needed as outpt to which pt says he feels comfortable. Will consider increasing Venlafaxine further. PLAN: CV q15 Risperdal 3mg qhs DC Abilify (plan has been to taper of and dc)\ venlafaxine ER to 150 mg daily Continue MAT, on Methadone 120 mg Continue Remeron 30mg (Restarted on home meds with remeron 30mg QHS for insomnia) Hold Depakote 1500 mg QHS, VPA shows non-adherence. Monitor response to medications. Monitor for safety in the milieu. Discharge on stabilization. Patient seen. Chart reviewed. Discussed with team. I spent minutes with the patient and/or on the patient floor today, greater than?50% of which was spent counseling/coordinating care. Patient educated on: diagnosis and medication risk/benefits Informed Consent: understands Reason for contiued inpatient stay Substantial Risk for: stable for discharge
[2021-09-20] MEDS: Nicotine Polacrilex 2 MG GUM 4 MG BUCCAL ×3 (14:12→20:43)
[2021-09-20 17:17] VITALS: BP 105/76; PULSE 94; RESP 20; TEMP 36.7; O2SAT 96
--- NOTE | 2021-09-20 19:12 | MHC.RECOVSUP ---
? Reason for consult Recovery Support o Current location: [address] o Identified substance use concern: Heroin - Support ? Intervention: o Community resources provided o Harm reduction discussion ? Plan: o Patient to follow up with [facility] after discharge ? Additional information: Met with Patient and we talk Recovery & Harm Reduction.. We talk about [facility] and the service they offer..
[2021-09-20] MEDS: Melatonin 3 MG TABLET 9 MG PO (21:19)
[2021-09-20] MEDS: lamoTRIgine 25 MG TABLET PO (21:19)
[2021-09-20] MEDS: risperiDONE 3 MG TABLET PO (21:20)
[2021-09-20] MEDS: Prazosin HCL 5 MG CAPSULE PO (21:20)
[2021-09-20] MEDS: Mirtazapine 30 MG TABLET PO (21:20)
[2021-09-21] MEDS: cloNIDine HCL 0.1 MG TABLET PO ×2 (08:58→21:14)
[2021-09-21] MEDS: Gabapentin 600 MG TABLET PO ×3 (08:58→21:14)
[2021-09-21] MEDS: Atorvastatin Calcium 40 MG TABLET PO (08:58)
[2021-09-21] MEDS: buPROPion HCl XL 300 MG TAB.ER.24H PO (08:58)
[2021-09-21] MEDS: Tamsulosin HCL 0.4 MG CAPSULE PO (08:58)
[2021-09-21] MEDS: buPROPion HCl XL 150 MG TAB.ER.24H PO (08:58)
[2021-09-21] MEDS: Venlafaxine HCl ER 150 MG CAP.ER.24H PO (08:58)
[2021-09-21] MEDS: methADONE HCl 20 MG/2 ML ORAL.CONC 120 MG PO (08:59)
[2021-09-21 11:20] VITALS: BP 108/58; PULSE 98; TEMP 36.4
[2021-09-21] MEDS: Baclofen 10 MG TABLET PO ×2 (14:01→21:24)
[2021-09-21] MEDS: Nicotine Polacrilex 2 MG GUM 4 MG BUCCAL ×5 (14:01→21:45)
--- NOTE | 2021-09-21 15:47 | P.PNPSI_ITS ---
Subjective Subjective Date of Service: 09/21/21 Reason For Visit: recurrent severe major depression, opioid use Interim History: Late entry for patient seen on 09/21 Patient reports that he is sleeping overall okay. He says his mood is better and no SI, though he still feels depressed. He is looking to discharge tomorrow to get back to his mother. He talked about his decision to engage with a chief engineer drilling and recovery and is optimistic about staying sober. He thinks his medications are good enough for now and will continue to work with outpatient provider when it is established. Mental Status Exam Mental Status Exam Narrative: Patient Appearance:?appropriate, casual cloths Patient Orientation:?Person, Place, Time and Situation Level of Consciousness:?Alert Patient Behavior:?appropriate eye contact, cooperative Mood Description:?Depressed Affect Description: congruent but brighter, more engaged Patient Cognition Impaired:?No Ability to Follow Directions:?Good Speech Pattern:?Spontaneous Speech Memory Description:?Episodic Impaired Hallucinations:?None Delusions:?Not Present Perceptual Disturbances:?intermittent Depersonalization Thought Process:?goal oriented, linear Thought Content: pt denies SI; denies HI; on dealing depression Judgment:?fair and adequate Diagnostics Vital Signs (24Hr): Vital Signs - 24 hr 09/21/21 11:20 09/21/21 21:00 09/22/21 06:00 Temperature 97.6 F 97.7 F Pulse Rate 98 75 80 Respiratory Rate 14 Blood Pressure 108/58 L 118/54 L 107/65 Pulse Oximetry 96 BMI result Body Mass Index 36.5 Labs Results: 09/10/21 16:55 09/10/21 16:27 Medications Medications Current Medications Acetaminophen (Acetaminophen 325 Mg Tablet) 650 mg PO Q6H PRN PRN Reason: Headache/Pain Mild Scale (1-3) Al Hydroxide/Mg Hydroxide (Magnesium Hydrox/Alum Hydrox 30 Ml Oral.Susp) 30 ml PO Q6H PRN PRN Reason: Heartburn/Nausea Atorvastatin Calcium (Atorvastatin Calcium 40 Mg Tablet) 40 mg PO DAILY [facility] Last Admin: 09/22/21 08:31 Dose: 40 mg Documented by: Baclofen (Baclofen 10 Mg Tablet) 10 mg PO TID PRN PRN Reason: muscle spasm Last Admin: 09/21/21 21:24 Dose: 10 mg Documented by: Bupropion HCl (Bupropion Hcl Xl 300 Mg Tab.Er.24h) 300 mg PO DAILY [facility] Last Admin: 09/22/21 08:31 Dose: 300 mg Documented by: Bupropion HCl (Bupropion Hcl Xl 150 Mg Tab.Er.24h) 150 mg PO DAILY [facility] Last Admin: 09/22/21 08:31 Dose: 150 mg Documented by: Clonidine HCl (Clonidine Hcl 0.1 Mg Tablet) 0.1 mg PO BID [facility]; Protocol Last Admin: 09/22/21 08:31 Dose: 0.1 mg Documented by: Gabapentin (Gabapentin 600 Mg Tablet) 600 mg PO TID [facility] Last Admin: 09/22/21 08:31 Dose: 600 mg Documented by: Hydroxyzine HCl (Hydroxyzine Hcl 50 Mg Tablet) 50 mg PO TID PRN PRN Reason: Anxiety Last Admin: 09/21/21 15:48 Dose: 50 mg Documented by: Lamotrigine (Lamotrigine 25 Mg Tablet) 25 mg PO BEDTIME [facility] Last Admin: 09/21/21 21:14 Dose: 25 mg Documented by: Magnesium Hydroxide (Milk Of Magnesia 30 Ml Oral.Susp) 30 ml PO DAILY PRN PRN Reason: Constipation Melatonin (Melatonin 3 Mg Tablet) 9 mg PO BEDTIME [facility] Last Admin: 09/21/21 21:14 Dose: 9 mg Documented by: Methadone HCl (Methadone Hcl 20 Mg/2 Ml Oral.Conc) 120 mg PO DAILY [facility] Last Admin: 09/22/21 08:31 Dose: 120 mg Documented by: Mirtazapine (Mirtazapine 30 Mg Tablet) 30 mg PO BEDTIME [facility] Last Admin: 09/21/21 21:14 Dose: 30 mg Documented by: Naproxen (Naproxen 500 Mg Tablet) 500 mg PO BID PRN PRN Reason: Pain, Moderate (Pain Scale 4-6 Last Admin: 09/15/21 10:57 Dose: 500 mg Documented by: Nicotine Polacrilex (Nicotine Polacrilex 2 Mg Gum) 4 mg BUCCAL Q2H PRN PRN Reason: CRAVINGS Last Admin: 09/21/21 21:45 Dose: 4 mg Documented by: Prazosin HCl (Prazosin Hcl 5 Mg Capsule) 5 mg PO BEDTIME [facility]; Protocol Last Admin: 09/21/21 21:14 Dose: 5 mg Documented by: Risperidone (Risperidone 3 Mg Tablet) 3 mg PO BEDTIME [facility] Last Admin: 09/21/21 21:14 Dose: 3 mg Documented by: Tamsulosin HCl (Tamsulosin Hcl 0.4 Mg Capsule) 0.4 mg PO DAILY [facility] Last Admin: 09/22/21 08:31 Dose: 0.4 mg Documented by: Trazodone HCl (Trazodone Hcl 100 Mg Tablet) 100 mg PO BEDTIME PRN PRN Reason: sleep Last Admin: 09/11/21 21:12 Dose: 100 mg Documented by: Trazodone HCl (Trazodone Hcl 25 Mg Halftab) 25 mg PO BEDTIME PRN PRN Reason: early waking/continued insomni Venlafaxine HCl (Venlafaxine Hcl Er 150 Mg Cap.Er.24h) 150 mg PO DAILY [facility] Last Admin: 09/22/21 08:31 Dose: 150 mg Documented by: Allergies Allergies Allergy/AdvReac Type Severity Reaction Status Date / Time shellfish derived Allergy Severe ANAPHAYLAXI Verified 09/10/21 07:36 [SHELLFISH DERIVED] A Assessment & Plan Assessment & Plan (1) Opioid use disorder, severe, dependence: Status: Acute Code(s): F11.20 - Opioid dependence, uncomplicated (2) MDD (major depressive disorder), recurrent episode, severe: Qualifiers: Psychotic features: with psychotic features Qualified Code(s): F33.3 - Major depressive disorder, recurrent, severe with psychotic symptoms Status: Chronic Code(s): F33.2 - Major depressive disorder, recurrent severe without psychotic features (3) PTSD (post-traumatic stress disorder): Status: Chronic Code(s): F43.10 - Post-traumatic stress disorder, unspecified (4) Cocaine use disorder: Status: Acute Code(s): F14.10 - Cocaine abuse, uncomplicated Plan Guillermo is a 36 y.o. male with history of depression, PTSD, chronic SI, substance abuse, opiate dependent on methadone. He has multiple inpatient psych admissions for relapse, SI, depression, and mood dysregulation. He has chronic homelessness with minimal family support, financial stress. Hx of non-adherence with follow up outpatient appointments. 09/13/21 Increase Risperdal prn to 1 mg BID prn. Consider replacement of Abilify as target sx is racing of thought at bedtime. 09/14/21 -Risperdal 1 mg bid -Begin Abilify tapering -Increase Effexor to 112.5 mg daily 09/15/21 Continue plan of care 09/16/2021 continue current regimen and plans 09/17/2021: Continue current plans and regimen. No changes made today 09/18 [employer] covering: Patient remains depressed with SI. Patient would like to continue with Dr[facility] plan and will discontinue Abilify and increase Risperdal. Also will increase venlafaxine; discussed [place] and pt is open 09/19 Patient reports that he did sleep better last night with increased R isperdal. He also said that today so far he has not been having bad thoughts including SI. His speech is still latent any still has thought blocking which is not his baseline; perhaps there is some disassociation occurring with PTSD. Discussed auditory hallucinations which are just present when he is upset. Patient says he is still depressed and affect is congruent, distant and blunted, however as mentioned SI not present today. He hopes that current regimen will help correct this but struggles to be optimistic as he reports his chronic depression has never really changed much and not for very long. Patient asked if there was medication available for daytime PTSD thoughts which he says still plagued him and patient will try hydroxyzine to see if it can help. -rewriter discussed substance abuse issues and that patient would benefit from increased support in the community which patient does agree. 09/20 pt more present, engaged; remains depressed but no SI and mood is better. Wants chief engineer drilling and recovery to help w/ sobriety. Pt says he'd like to DC Saturday, feeling need to get back to helping his mother. Discussed continuing to do med management as needed as outpt to which pt says he feels comfortable. Will consider increasing Venlafaxine further. 09/21 patient is stable; although he feels his depression remains it is better and he denies SI. Will work with outpatient provider and will continue therapy. Also will engage with chief engineer drilling and recovery to help stay sober. Patient is not in imminent risk for harm to self or others and is appropriate for discharge back to the community. He returns to live with his mother who is supportive. PLAN: CV q15 Risperdal 3mg qhs DC Abilify (plan has been to taper of and dc)\ venlafaxine ER to 150 mg daily Continue MAT, on Methadone 120 mg Continue Remeron 30mg (Restarted on home meds with remeron 30mg QHS for insomnia) Hold Depakote 1500 mg QHS, VPA shows non-adherence. Monitor response to medications. Monitor for safety in the milieu. Discharge on stabilization. Patient seen. Chart reviewed. Discussed with team. I spent minutes with the patient and/or on the patient floor today, greater than?50% of which was spent counseling/coordinating care. Patient educated on: diagnosis and substance abuse Informed Consent: understands Reason for contiued inpatient stay Substantial Risk for: stable for discharge
[2021-09-21] MEDS: hydrOXYzine HCL 50 MG TABLET PO (15:48)
[2021-09-21 21:00] VITALS: BP 118/54; PULSE 75
[2021-09-21] MEDS: Prazosin HCL 5 MG CAPSULE PO (21:14)
[2021-09-21] MEDS: risperiDONE 3 MG TABLET PO (21:14)
[2021-09-21] MEDS: Melatonin 3 MG TABLET 9 MG PO (21:14)
[2021-09-21] MEDS: Mirtazapine 30 MG TABLET PO (21:14)
[2021-09-21] MEDS: lamoTRIgine 25 MG TABLET PO (21:14)
[2021-09-22 06:00] VITALS: BP 107/65; PULSE 80; RESP 14; TEMP 36.5; O2SAT 96
[2021-09-22] MEDS: cloNIDine HCL 0.1 MG TABLET PO (08:31)
[2021-09-22] MEDS: buPROPion HCl XL 150 MG TAB.ER.24H PO (08:31)
[2021-09-22] MEDS: Tamsulosin HCL 0.4 MG CAPSULE PO (08:31)
[2021-09-22] MEDS: buPROPion HCl XL 300 MG TAB.ER.24H PO (08:31)
[2021-09-22] MEDS: Gabapentin 600 MG TABLET PO ×2 (08:31→14:04)
[2021-09-22] MEDS: Venlafaxine HCl ER 150 MG CAP.ER.24H PO (08:31)
[2021-09-22] MEDS: methADONE HCl 20 MG/2 ML ORAL.CONC 120 MG PO (08:31)
[2021-09-22] MEDS: Atorvastatin Calcium 40 MG TABLET PO (08:31)
[2021-09-22] MEDS: Nicotine Polacrilex 2 MG GUM 4 MG BUCCAL ×3 (09:48→14:04)
[2021-09-22] MEDS: Baclofen 10 MG TABLET PO (09:48)
--- NOTE | 2021-09-22 09:54 | PM.PSYDC ---
DS: Providers Provider Date of Service: 09/22/21 Date of admission: 09/11/21 16:24 Date of discharge: 09/22/21 Primary care physician: Rhonda Prinec Admitting clinician: Shereen Santoyo Attending physician on discharge: Hakeem Roland DS: Diagnosis Discharge Diagnosis (1) Opioid use disorder, severe, dependence: Status: Acute (2) MDD (major depressive disorder), recurrent episode, severe: Status: Chronic (3) PTSD (post-traumatic stress disorder): Status: Chronic (4) Cocaine use disorder: Status: Acute DS: Medications Discharge Medications Home Medications: Home Medications Medication Instructions Recorded Confirmed bupropion HCl 200 mg tablet,12 hr 200 mg PO BID 07/04/21 09/10/21 sustained-release clonidine HCl 0.1 mg tablet 0.1 mg PO BID PRN 07/04/21 09/10/21 divalproex 500 mg tablet,extended 1,500 mg PO BEDTIME 07/04/21 09/10/21 release 24 hr gabapentin 600 mg tablet 600 mg PO TID 07/04/21 09/10/21 melatonin 3 mg tablet 9 mg PO BEDTIME 07/04/21 09/10/21 mirtazapine 30 mg tablet 30 mg PO BEDTIME 07/04/21 09/10/21 naproxen 500 mg tablet 500 mg PO BID PRN 07/04/21 09/10/21 nicotine (polacrilex) 4 mg gum 4 mg PO Q2H PRN 07/04/21 09/10/21 prazosin 5 mg capsule 5 mg PO BEDTIME 07/04/21 09/10/21 aripiprazole 15 mg tablet 1 tab PO DAILY 09/10/21 09/10/21 baclofen 10 mg tablet 1 tab PO TID PRN 09/10/21 09/10/21 hydroxyzine HCl 50 mg tablet 1 tab PO TID PRN 09/10/21 09/10/21 methadone 10 mg tablet 120 mg PO DAILY 09/10/21 09/10/21 risperidone 0.5 mg tablet 1 tab PO DAILY 09/10/21 09/10/21 rosuvastatin 10 mg tablet 1 tab PO DAILY 09/10/21 09/10/21 tamsulosin 0.4 mg capsule 1 cap PO DAILY 09/10/21 09/10/21 tamsulosin 0.4 mg capsule 1 cap PO DAILY 09/10/21 09/10/21 trazodone 50 mg tablet 1 tab PO BEDTIME 09/10/21 09/10/21 Previous Rx's Medication Instructions Recorded glecaprevir 100 mg-pibrentasvir 40 3 tab PO DAILY 56 Days #168 tab 07/12/21 mg tablet (Mavyret) Mental Status Exam Mental Status Exam Narrative: Patient Appearance:?appropriate, casual cloths Patient Orientation:?Person, Place, Time and Situation Level of Consciousness:?Alert Patient Behavior:?appropriate eye contact, cooperative Mood Description:? ok Affect Description: brighter, more engaged, joked with proposal lead writer/staff Patient Cognition Impaired:?No Ability to Follow Directions:?Good Speech Pattern:?Spontaneous Speech Memory Description:?Episodic Impaired Hallucinations:?None Delusions:?Not Present Perceptual Disturbances:?none Thought Process:?goal oriented, linear Thought Content: pt denies SI; denies HI; WNL Judgment:?fair and adequate DS: Summary Hospital Course Hospital Course: Guillermo is a 36 y.o. male with history of depression, PTSD, chronic SI, substance abuse, Hep C, opiate dependent on methadone. He has multiple inpatient psych admissions for relapse, SI, depression, and mood dysregulation. He has chronic homelessness with minimal family support, financial stress. Hx of non-adherence with follow up outpatient appointments. On admission, patient was depressed with intermittent SI and intermittent auditory hallucinations which he says are only present when he is upset or depressed. He was started on Risperdal with the plan to taper off and discontinue Abilify to target his racing thoughts at bedtime. Patient was also started on venlafaxine for depression and his Wellbutrin was increased. This proposal lead writer began to cover patient and patient wanted to continue with medication regimen planned that had already been enacted. Over subsequent days, patient remained depressed, often isolative and with intermittent SI. However once Risperdal was increased he started to get better sleep and his mood improved. Patient started getting out of his room, attending to ADLs, and dressing in casual clothing, attending groups. His depression did not fully resolve, however his mood did improve in SI resolved, though he mentions it is chronically intermittent. AH resolved. For time, patient had some speech latency and seemed distracted during one-to-one sessions; this too however resolved. discussed his struggles with substance abuse and agreed to a middle school coach which he thinks will significantly help him remain sober. He also agreed to of visiting nurse which will also increase his support. Although depression did remain, patient felt stable and ready to discharge home where he lives with and helps care for his supportive mother. Patient discussed safety plan should he again feel unsafe and he agrees to reach out for help immediately. Patientintermittently expressed anxiety about discharge but overall said he felt safe and was ready to go. He denied any medication side effects. reported sleeping better, eating well and overall feeling better and more optimistic about continued progress. Patient has a long history of substance abuse and mood dysregulation and he remains vulnerable to at some point in the future either relapsing and or decompensating. However this is a chronic issue for patient, of which he is well aware and will not resolve with further stay on an inpatient unit but rather requires long-term engagement with therapy, which patient says he plans to continue. Patient is not in imminent risk of harm to self or others and is appropriate to continue treatment as an outpatient. Time spent discussing smoking cessation with patient: 3 to 10 minutes Status at Discharge Functional status at discharge: independent ambulation Overall status at discharge: patient is back to baseline Time Spent with Patient Time attestation: Total time spent providing and/or coordinating discharge services: Time spent: Greater than 30 minutes Discharge Plan Discharge Patient Disposition: Home, Self-Care Discharge Diagnosis: MDD, recurrent, severe in partial remission Referrals: Salud [facility]leton Visiting RN [Other] - 09/19/21 (fax- [phone] The Visiting RN will start on Saturday09/19/21- they will call you to arrange a time of the visit. ) Therapy: Serena Morrison [Other] - 09/28/21 12:00 pm (This is a virtual Telehealth appointment) Psychiatric Med Management: Dr. Urrutia [Other] - 10/11/21 8:30 am (This is an in-person appointment) Methadone: Shahana Fountain [Other] - 09/23/21 7:00 am (Please bring your last dose letter and discharge summary on Saturday between 7-11AM to be reinstated in the program) Rhonda Prince [Primary Care Provider] - 10/10/21 10:00 am (FAX # [phone] ATTN: JESSIKA MCDANIEL) Discharge Medications: New bupropion HCl 150 mg Tablet Extended Release 24 Hr 150 mg PO DAILY 30 Days Qty: 30 0RF Rx Instructions: take with 300mg tablet bupropion HCl 300 mg Tablet Extended Release 24 Hr 300 mg PO DAILY 30 Days Qty: 30 0RF Rx Instructions: take with 150mg tablet lamotrigine 25 mg Tablet See Rx Instructions .ROUTE .COMPLEX 30 Days Qty: 56 0RF Rx Instructions: take 1 tablet at bedtime for 4 days; then start taking 2 tabs at bedtime risperidone 3 mg Tablet 3 mg PO BEDTIME 30 Days Qty: 30 0RF venlafaxine 150 mg Capsule,Extended Release 24hr 150 mg PO DAILY 30 Days Qty: 30 0RF Continued Mavyret 100-40 mg tablet 3 tab PO DAILY 56 Days Qty: 168 0RF Rx Instructions: must administer with a meal/food methadone 10 mg Tablet 120 mg PO DAILY 0RF clonidine HCl 0.1 mg tablet 0.1 mg PO BID PRN (Reason: anxiety) 30 Days Qty: 60 0RF gabapentin 600 mg tablet 600 mg PO TID 30 Days Qty: 90 0RF melatonin 3 mg tablet 9 mg PO BEDTIME 30 Days Qty: 90 0RF prazosin 5 mg capsule 5 mg PO BEDTIME 30 Days Qty: 30 0RF nicotine (polacrilex) 4 mg gum 4 mg PO Q2H PRN (Reason: CRAVINGS) 30 Days Qty: 100 0RF mirtazapine 30 mg tablet 30 mg PO BEDTIME 30 Days Qty: 30 0RF naproxen 500 mg tablet 500 mg PO BID PRN (Reason: pain) 0RF Changed trazodone 50 mg tablet See Rx Instructions .ROUTE .COMPLEX 30 Days Qty: 30 0RF Rx Instructions: take 1/2 to 1 tablet at bedtime as needed for insomnia hydroxyzine HCl 50 mg tablet 50 mg PO TID PRN (Reason: Anxiety) 30 Days Qty: 60 0RF tamsulosin 0.4 mg capsule 0.4 mg PO DAILY 30 Days Qty: 30 0RF tamsulosin 0.4 mg capsule 0.4 mg PO DAILY 30 Days Qty: 30 0RF baclofen 10 mg tablet 10 mg PO TID PRN (Reason: muscle spasm) 30 Days Qty: 90 0RF rosuvastatin 10 mg tablet 10 mg PO DAILY 30 Days Qty: 30 0RF Discontinued risperidone 0.5 mg tablet 1 tab PO DAILY 0RF aripiprazole 15 mg tablet 1 tab PO DAILY 0RF bupropion HCl 200 mg tablet sustained-release 12 hr 200 mg PO BID 0RF divalproex 500 mg tablet extended release 24 hr 1,500 mg PO BEDTIME 0RF Discharge Orders: Discharge Order (Routine); Ordered 09/22/21 Ordered By: Hakeem Roland Diet: regular diet Activity on Discharge: As tolerated Stand Alone Forms: Patient Portal Discharge page Care Plan Goals: Maintain mood and safe behaviors Take medications as prescribed Continue to pursue sobriety Practice coping skills Continue with outpatient providers and reach out to them as needed Health Concerns: Mood stability and behaviors Sobriety Hep C BPH Plan of Treatment: Follow up with your PCP, psychiatric provider and other outpatient providers regarding above concerns Take medications as prescribed Assessment: Risk assessment at time of discharge:? Patient was interviewed prior to discharge and found to be fully oriented and without any SI or HI. Patient has insight and demonstrates good judgment in terms of wanting to pursue treatment. Patient is not in imminent risk of harm to self or others and has a safety plan that includes presenting to the closest ER or calling 911 if feeling unsafe.? Patient has been observed closely by nursing and unit staff throughout admission; patient has not engaged in any behaviors that suggest dangerousness to self or others and has demonstrated appropriate behaviors and impulse control
[2021-09-22] MEDS: hydrOXYzine HCL 50 MG TABLET PO (11:50)
--- NOTE | 2021-09-22 13:25 | PC.NURSE ---
Patient was ready and prepare for discharge. Paper work reviewed with patient. Follow-up appointment and next dose medications explained to patient. Patient verbalized understanding. Patient was pleasant and cooperative with the discharge process. Patient was accompanied with belongings to the front of the building per hospital policy.
[2021-09-22] MEDS: Naloxone HCl Nasal TAKE HOME 4 MG SPRAY NOSTRILALT (13:30)
--- NOTE | 2021-09-22 19:59 | P.PNPSI_ITS ---
Subjective Subjective Date of Service: 09/22/21 Reason For Visit: recurrent severe major depression, opioid use Interim History: Pt reports he is prepared for discharge. No current questions on medications or plan of care. Has resources to contact if emergency arises. Positive in terminating with peers and team. Looking forward to re-uniting with his family. Medication Compliance: Yes Side effects from medications: No Attending Groups: Yes Review of Systems Acute medical concerns: No Medical Review of Systems: unchanged Review of Systems Psychiatric: Reports no additional psychiatric complaints Mental Status Exam Mental Status Exam Narrative: Patient Appearance:?appropriate, casual cloths Patient Orientation:?Person, Place, Time and Situation Level of Consciousness:?Alert Patient Behavior:?appropriate eye contact, cooperative Mood Description:? ok Affect Description: brighter, more engaged, joked with telegraphic typewriter operator/staff Patient Cognition Impaired:?No Ability to Follow Directions:?Good Speech Pattern:?Spontaneous Speech Memory Description:?Episodic Impaired Hallucinations:?None Delusions:?Not Present Perceptual Disturbances:?none Thought Process:?goal oriented, linear Thought Content: pt denies SI; denies HI; WNL Judgment:?fair and adequate Diagnostics Vital Signs (24Hr): Vital Signs - 24 hr 09/21/21 21:00 09/22/21 06:00 Temperature 97.7 F Pulse Rate 75 80 Respiratory Rate 14 Blood Pressure 118/54 L 107/65 Pulse Oximetry 96 BMI result Body Mass Index 36.5 Labs Results: 09/10/21 16:55 09/10/21 16:27 Medications Allergies Allergies Allergy/AdvReac Type Severity Reaction Status Date / Time shellfish derived Allergy Severe ANAPHAYLAXI Verified 09/10/21 07:36 [SHELLFISH DERIVED] A Assessment & Plan Assessment & Plan (1) Opioid use disorder, severe, dependence: Status: Acute Code(s): F11.20 - Opioid dependence, uncomplicated (2) MDD (major depressive disorder), recurrent episode, severe: Qualifiers: Psychotic features: with psychotic features Qualified Code(s): F33.3 - Major depressive disorder, recurrent, severe with psychotic symptoms Status: Chronic Code(s): F33.2 - Major depressive disorder, recurrent severe without psychotic features (3) PTSD (post-traumatic stress disorder): Status: Chronic Code(s): F43.10 - Post-traumatic stress disorder, unspecified (4) Cocaine use disorder: Status: Acute Code(s): F14.10 - Cocaine abuse, uncomplicated Plan Guillermo is a 36 y.o. male with history of depression, PTSD, chronic SI, substance abuse, opiate dependent on methadone. He has multiple inpatient psych admissions for relapse, SI, depression, and mood dysregulation. He has chronic homelessness with minimal family support, financial stress. Hx of non-adherence with follow up outpatient appointments. 09/13/21 Increase Risperdal prn to 1 mg BID prn. Consider replacement of Abilify as target sx is racing of thought at bedtime. 09/14/21 -Risperdal 1 mg bid -Begin Abilify tapering -Increase Effexor to 112.5 mg daily 09/15/21 Continue plan of care 09/16/2021 continue current regimen and plans 09/17/2021: Continue current plans and regimen. No changes made today 09/18 Sound Recording Technician covering: Patient remains depressed with SI. Patient would like to continue with [facility] plan and will discontinue Abilify and increase Risperdal. Also will increase venlafaxine; discussed [place] and pt is open 09/19 Patient reports that he did sleep better last night with increased R isperdal. He also said that today so far he has not been having bad thoughts including SI. His speech is still latent any still has thought blocking which is not his baseline; perhaps there is some disassociation occurring with PTSD. Discussed auditory hallucinations which are just present when he is upset. Patient says he is still depressed and affect is congruent, distant and blunted, however as mentioned SI not present today. He hopes that current regimen will help correct this but struggles to be optimistic as he reports his chronic depression has never really changed much and not for very long. Patient asked if there was medication available for daytime PTSD thoughts which he says still plagued him and patient will try hydroxyzine to see if it can help. -telegraphic typewriter operator discussed substance abuse issues and that patient would benefit from increased support in the community which patient does agree. 09/20 pt more present, engaged; remains depressed but no SI and mood is better. Wants assistant basketball coach to help w/ sobriety. Pt says he'd like to DC Saturday, feeling need to get back to helping his mother. Discussed continuing to do med management as needed as outpt to which pt says he feels comfortable. Will consider increasing Venlafaxine further. 09/21 patient is stable; although he feels his depression remains it is better and he denies SI. Will work with outpatient provider and will continue therapy. Also will engage with assistant basketball coach to help stay sober. Patient is not in imminent risk for harm to self or others and is appropriate for discharge back to the community. He returns to live with his mother who is supportive. 09/22- Discharge PLAN: CV q15 Risperdal 3mg qhs DC Abilify (plan has been to taper of and dc)\ venlafaxine ER to 150 mg daily Continue MAT, on Methadone 120 mg Continue Remeron 30mg (Restarted on home meds with remeron 30mg QHS for insomnia) Hold Depakote 1500 mg QHS, VPA shows non-adherence. Monitor response to medications. Monitor for safety in the milieu. Discharge on stabilization. Patient seen. Chart reviewed. Discussed with team. I spent minutes with the patient and/or on the patient floor today, greater than?50% of which was spent counseling/coordinating care. Patient educated on: medication risk/benefits and therapeutic strategies Informed Consent: understands Reason for contiued inpatient stay Substantial Risk for: stable for discharge
== END 2021-09-22 14:40 | disposition home or self-care (01) | DRG 751 ==
LOC: HO.ED 09-11 15:59 → HO.PM5 09-11 16:34
PROVIDERS: Clinical Nurse Specialist Psychiatric/Mental Health, Adult; Nurse Practitioner Family; Admitting Provider Psychiatry & Neurology Psychiatry; Emergency Provider Emergency Medicine; PCP Nurse Practitioner; Visit Provider Psychiatry & Neurology Psychiatry
DX: F33.2 Major depressive disorder, recurrent severe without psychotic features (principal); R45.851 Suicidal ideations; F43.10 Post-traumatic stress disorder, unspecified; E78.5 Hyperlipidemia, unspecified; F11.20 Opioid dependence, uncomplicated; F14.10 Cocaine abuse, uncomplicated; N40.0 Benign prostatic hyperplasia without lower urinary tract symptoms; Z91.51 Personal history of suicidal behavior; Z86.19 Personal history of other infectious and parasitic diseases; Z20.822 Contact with and (suspected) exposure to COVID-19; Z79.899 Other long term (current) drug therapy
CPT/HCPCS: 36415; 80048; 80061; 80076; 80164; 80307; 82077; 82607; 82746; 83036; 83735; 84439; 84443; 85025; 87635; 90471; 90715; 93005; 99285

== ENCOUNTER 2021-10-27 10:22 | Outpatient (REF) | payer MEDICAID, SELFPAY ==
[2021-10-30 14:37] LABS: HCV RNA PCR Qn <1.18 NOT DETECTED Log IU/mL (NOT DETECTED); HCV RNA PCR Qn <15 NOT DETECTED IU/mL (NOT DETECTED)
== END 2021-10-27 10:23 | disposition home or self-care (01) ==
LOC: HO.LAB 10:22
PROVIDERS: PCP Nurse Practitioner; Visit Provider Internal Medicine
DX: B19.20 Unspecified viral hepatitis C without hepatic coma (principal)
CPT/HCPCS: 36415; 87522; 87902

== ENCOUNTER 2022-04-12 09:44 | Inpatient (IN) | payer MEDICAID, SELFPAY ==
[2022-04-12] VITALS (8 sets, daily range): BP systolic 110–138; BP diastolic 54–87; PULSE 64–91; RESP 15–20; TEMP 36.7–37.3; O2SAT 95–98; BMI 36.9
--- NOTE | ~2022-04-12 | XR_ITS ---
EXAMINATION: XR CHEST CLINICAL INFORMATION: Central line placement. COMPARISON: 12/27/2020 chest radiographs. TECHNIQUE: Frontal view of the chest was obtained. FINDINGS: Support devices: Right internal jugular central venous catheter with tip terminating in superior vena cava. No significant abnormality is noted involving the heart, lungs, mediastinum, bony thorax or soft tissues. XR/XR chest 1V IMPRESSION: No acute cardiopulmonary process.
--- NOTE | ~2022-04-12 | US_ITS ---
EXAMINATION: US VENOUS ULTRASOUND WITH DOPPLER LOWER EXTREMITY, BILATERAL CLINICAL INFORMATION: Lower extremity swelling and warmth, rule out deep venous thrombosis. COMPARISON: None TECHNIQUE: Ultrasound of the deep veins is performed from the hip to the calf with compression sonography and color and pulse Doppler assessment. Spectral analysis with color-flow imaging is performed. FINDINGS: RIGHT: There is normal venous compression and respiratory variation and augmented flow. The visualized common femoral vein, superficial femoral vein, profunda femoral vein, popliteal vein, and the trifurcation region shows no evidence of deep venous thrombosis. No right popliteal cyst. The subcutaneous soft tissues are unremarkable. LEFT: There is normal venous compression and respiratory variation and augmented flow. The visualized common femoral vein, superficial femoral vein, profunda femoral vein, popliteal vein, and the trifurcation region shows no evidence of deep venous thrombosis. No left popliteal cyst. Left inguinal reniform lymph node measures up to 2.5 cm in long axis. No surrounding abnormality. The subcutaneous soft tissues are unremarkable. US/US venous duplex LE BI IMPRESSION: No evidence for deep venous thrombosis in the visualized veins of the bilateral lower extremities.
--- NOTE | ~2022-04-12 | CT_ITS ---
Examination: CT humerus LT w IV con Indication: Reason for Exam abscess vs pseudo aneurysm Comparison: No pertinent prior studies are currently available for comparison. Technique: Multiple serial helical CT scan images through the humerus were formed. Humeral head is not entirely included on the imaging due to positioning. Soft tissue and bony algorithms utilized. Coronal and sagittal reformatted images were obtained on the technologist workstation. 85 mL of Omnipaque 350 intravenous contrast was utilized. This CT examination was performed using dose optimization techniques as appropriate, variously including the following: *Automated exposure control *Adjustment of mA and/or kV according to patient size (this includes techniques or standardized protocols for targeted exams where dose is matched to indication/reason for exam; i.e. extremities or head) *Use of iterative reconstruction technique Findings: There is skin thickening extending from the region of the antecubital fossa anteromedially into the region of the more proximal humerus. There is significant soft tissue stranding and edema with slightly more focal amount of phlegmonous change in the antecubital region. There is a single tiny bubble of air in the subcutaneous tissue possibly within a tiny vein best appreciated on series 4 image 131/586. This tiny bubble of air is of uncertain significance. I do not appreciate a discrete drainable collection although there is a focal phlegmonous change with associated skin thickening in the antecubital fossa itself. No radiopaque foreign body. I do not appreciate any obvious aneurysm or pseudoaneurysm. Underlying bony structures are grossly unremarkable with no acute fracture, dislocation, bony destruction, or periosteal reaction identified CT/CT humerus LT w IV con Impression: There is skin thickening and soft tissue stranding/edema about the arm with more focal phlegmonous change in the antecubital fossa. I do not appreciate a discrete drainable collection at this time. There is a single tiny bubble of air in the subcutaneous tissue possibly within a tiny vein of uncertain significance or etiology as described above.
[2022-04-12 10:11] LABS: MANUAL DIFF FLAG NO
[2022-04-12 10:12] LABS: Basophils Percent Auto 0.2 % (0-2); Eosinophils Absolute Auto 0.1 X10*3/uL (0.0-0.4); Eosinophils Percent Auto 0.7 % (0-4); Hematocrit 38.7 % (42.0-52.0); Hemoglobin 12.3 g/dl (14.0-18.0); Imm Gran Abs Auto 0.04 X10*3/uL (0.00-0.03); Imm Gran Pct Auto 0.3 % (0.0-0.4); Mean Corpuscular HGB Conc 31.8 g/dl (31.0-36.0); Mean Corpuscular Hemoglobin 25.8 pg (27.0-33.0); Mean Corpuscular Volume 81.3 fL (80.0-98.0); Mean Platelet Volume 9.5 fL (9.4-12.4); Monocytes Percent Auto 8.5 % (2-11); Neutrophils Percent Auto 82.3 % (45-73); Platelet Count 303 X10*3/uL (160-400); Red Blood Count 4.76 X10*6/uL (4.60-5.80); Red Cell Distribution Width 14.2 % (11.0-16.0); White Blood Count 12.2 X10*3/uL (4.8-10.8)
[2022-04-12 10:46] LABS: Anion Gap 14 (12-20); Blood Urea Nitrogen 9 mg/dL (9-16); Calcium 8.8 mg/dL (8.4-10.2); Carbon Dioxide 25 mmol/L (22-29); Chloride 106 mmol/L (96-108); Creatinine Clr Calc Pharmacy 184.6; Estimated Glomerular Filt Rate > 60; Glucose Random 130 mg/dL (60-115); Potassium 3.9 mmol/L (3.3-5.1); Sodium 141 mmol/L (135-145)
[2022-04-12 10:54] LABS: B Type Natriuretic Peptide 33 pg/mL (<100)
--- NOTE | 2022-04-12 11:07 | PC.NURSE ---
attempted to draw labs on patient, patient stated ''nobody else is taking my blood''.tried explaining the importance of these labs. patient still refused all lab work
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
[2022-04-12 11:25] LABS: C Reactive Protein 10.37 mg/dL (< or = 0.50)
[2022-04-12 11:42] LABS: Erythrocyte Sedimentation Rate 26 MM/HR (0-15)
[2022-04-12] MEDS: Ketorolac Tromethamine 15 MG/ML VIAL IVPUSH (12:18)
--- NOTE | 2022-04-12 12:30 | PC.NURSE ---
multiple people attempted to draw the blood cultures but unfortunately unsuccessfully, this rn attempted to convince the pt to allow this rn to draw the cultures pt continuos on refusing
[2022-04-12] MEDS: Piperacillin Sodium/Tazobactam 3.375 GM in 0.9 % Sodium Chloride 50 ML IV (13:08)
--- NOTE | 2022-04-12 13:08 | PC.NURSE ---
antibiotics administration delay do to difficulty obtaining blood cultures, verbal order to hang the abx without the cultures large abscess to the left upper arm, pt reported injecting heroin into the same spot, last use was yesterday
--- NOTE | 2022-04-12 14:58 | PC.NURSE ---
orders for cultures cancelled by [facility] due to pt refusing blood work for extended period of time
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
[2022-04-12] MEDS: HYDROmorphone HCl 1 MG/ML SYRINGE IVPUSH (16:24)
[2022-04-12] MEDS: iohexoL 350 MG/ML 100 ML INFUS..BTL IV (17:13)
--- NOTE | 2022-04-12 18:00 | PC.NURSE ---
Pt requesting to leave, would not like to continue receiving care
--- NOTE | 2022-04-12 18:10 | PC.NURSE ---
Pt spoke to Dr. Montalvo and SWET[facility] Mauricio, is willing to stay and receive care at this time
--- NOTE | 2022-04-12 18:10 | PC.NURSE ---
Pt called this RN to let us know that his abscess popped. This RN covered it with an abdominal pad to minimize outside bacteria getting into it.
--- NOTE | 2022-04-12 19:24 | PC.NURSE ---
Pt agreeable to staying to receive treatment overnight
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
[2022-04-12] MEDS: SODIUM CHLORIDE 3401.94 ML IV (21:41)
--- NOTE | 2022-04-12 22:13 | PHA.MEDREC ---
Pharmacy Consult ? Medication Reconciliation Pharmacy has completed the medication reconciliation. Patient get methadone from [facility], which will need to be confirmed in the morning by RN. Patient report that he takes no medications. Significant other report he takes no medications. Patient had recent fills for: Baclofen 15 mg TID Vitamin D3 2000 units Gabapentin 600 mg TID Loratadine 10 mg PRN Rosuvastatin 10 mg daily Tamsulosin 0.4 mg daily Juanis Grady, PharmD
--- NOTE | 2022-04-12 22:27 | PHA.PROG ---
Admission Date/Time: April 12, 2022 20:46 Indication: Sepsis due to purulent cellulitis Weight in k.398 kg Adjusted body weight in K.[address] body weight in K.7 kg Obesity Dosing Indication % IBW: 160% Serum Creatinine - Last 168 Hours 04/12/22 10:01 Creatinine 0.68 Estimated CrCl and GFR - Last 168 Hours 04/12/22 10:01 Estim Creat Clear Calc 184.6 Estimated GFR > 60 Vancomycin Loading Dose: 2000 mg Current Vancomycin Dosing Regimen: 1250 mg Q12H Date and Time for next Vancomycin Level to be drawn: 04/13 @ 1300 Pharmacist Comments on Vancomycin Plan: Patient is obese with %IBW > 130%. Patient requires carefulm monitoring due large volume of distribution. Patient received loading dose vanco 2000 mg in the ER 04/12/22 @ 1513. Maintenance dose vancomycin 1250 mg Q12H is scheduled to start 04/13 @ 0300. Expected AUC 555 with a trough of 15.5. Random level is schedule to be drawn prior to 3rd dose to allow for pharmacy to examinen safety and efficacy of the drug. At this point patient will not be at steady state. Pharmacy to monitor renal function daily. Juanis Grady PharmD Vancomycin dosing will take advantage of [employer] as a clinical decision support tool that uses Bayesian modeling to calculate individual patient's pharmacokinetic parameters and forecast the patient's drug concentration time course with the target goal AUC 24 range of 400 - 600 mg/L/hr.
[2022-04-12] MEDS: Acetaminophen 325 MG TABLET 650 MG PO (23:57)
--- NOTE | 2022-04-13 01:25 | PC.NURSE ---
This RN changed pt abdominal pad on abscess due to last one becoming soaked in purulent drainage
--- NOTE | 2022-04-13 02:59 | PC.NURSE ---
Pt sleeping, respirations are even and unlabored. abscess wrapped and not leaking at this time. Significant other at bedside also sleeping.
--- NOTE | 2022-04-13 04:14 | PC.NURSE ---
check in on pt he is sleeping comfortable
[2022-04-13] MEDS: vancomycin HCL 1,250 MG in 0.9 % Sodium Chloride 250 ML 166.67 MG IV ×3 (04:39→23:59)
--- NOTE | 2022-04-13 05:43 | PC.NURSE ---
Assumed care of pt. at 0300. Pt. zamzam delayed d/t lack of IV pumps on the unit. Pt. awoke to urinate. Pt. sleeping with gf at bedside.
[2022-04-13 07:45] VITALS: BP 139/68; PULSE 63; TEMP 36.9; O2SAT 96
--- NOTE | 2022-04-13 09:45 | HE.PHANOTE ---
Pharmacy received methadone verification done by GABRIELA Bianchi. Confirmed with darleen at [facility] at [phone]. patient is on 40 mg, last confirmed dose was not on sheet.
[2022-04-13] MEDS: 0.9 % Sodium Chloride Flush 3 ML SYRINGE IVFLUSH ×2 (10:17→23:59)
[2022-04-13] MEDS: Acetaminophen 325 MG TABLET 650 MG PO ×2 (10:21→17:33)
--- NOTE | 2022-04-13 10:28 | PC.NURSE ---
rn requested this tech get an oral temp from the pt. pt refused temp, rn aware.
[2022-04-13] MEDS: methADONE HCl 20 MG/2 ML ORAL.CONC 40 MG PO (11:45)
--- NOTE | 2022-04-13 11:47 | P.PNIM_ITS ---
Subjective Subjective Date of Service: 04/13/22 Interval History: cc: left arm absecss interval history:withdrawal Cardiovascular Cardiovascular: Reports no additional cardiovascular complaints Respiratory Respiratory: Reports no additional respiratory complaints Physical Exam Vital Signs: Vital Signs: Last Vital Signs Temp 98.5 F 04/13/22 07:45 Pulse 63 04/13/22 07:45 Resp 17 04/12/22 23:57 BP 139/68 04/13/22 07:45 Pulse Ox 96 04/13/22 07:45 O2 Del Method 04/13/22 07:45 BMI result Body Mass Index 36.9 General: AO X 3, diaphoretic Resp: CTA bilateral, no accessory muscles used CVS: S1,S2,RRR GI: soft, non tender, non distended Neuro: motor grossly intact, alert Psych: agitated affect, appropriate insight lue erythema, abscess Objective Data Active Medications Acetaminophen (Acetaminophen 325 Mg Tablet) 650 mg PO Q6H PRN PRN Reason: Pain, Mild (Pain Scale 1-3) Last Admin: 04/13/22 10:21 Dose: 650 mg Documented By: THALIA Vancomycin HCl 1,250 mg/ (Sodium Chloride) 250 mls @ 166.667 mls/hr IV Q12H [facility] Last Infusion: 04/13/22 07:14 Dose: 0 mls/hr Documented By: ROSA ISELA Melatonin (Melatonin 3 Mg Tablet) 6 mg PO BEDTIME PRN PRN Reason: Insomnia Methadone HCl (Methadone Hcl 20 Mg/2 Ml Oral.Conc) 40 mg PO DAILY [facility] Last Admin: 04/13/22 11:45 Dose: 40 mg Documented By: THALIA Ondansetron HCl (Ondansetron Hcl 4 Mg/2 Ml Vial) 4 mg IVPUSH Q8H PRN PRN Reason: Nausea and Vomiting Pharmacy Consult (Consult Rx Vancomycin Dosing) 1 each MISCELLANE DAILY PRN PRN Reason: Consult order Pharmacy Consult (Consult Rx Perform Med Rec) 1 each MISCELLANE ONCE PRN PRN Reason: Consult order Sodium Chloride (0.9 % Sodium Chloride Flush 3 Ml Syringe) 3 ml IVFLUSH QSHIFT [facility] Last Admin: 04/13/22 10:17 Dose: 3 ml Documented By: THALIA Labs CBC & Chem 7: 04/12/22 10:01 12/08/22 10:01 Assessment and Plan (1) Abscess of skin or subcutaneous tissue: Status: Acute Plan 36-year-old male with pertinent history of IV drug use disorder, mood disorder who presents to the emergency department for evaluation of left upper extremity redness, warmth, draining wound. Sepsis due to purulent cellulitis continue vanc patient refusing blood cultures opiate dependence with withdrawal methadone hcv outpatient management DVT prophylaxis:? Low risk, encourage ambulation Full code reason for continued hospitalization: awaiting defervesence Quality Stroke Does the patient have a stroke diagnosis?: No VTE Prior VTE?: No VTE Risk Level:: Medical - moderate - high VTE Device Contraindication: Treatment Not Indicated VTE Drug Contraindication: Treatment Not Indicated
--- NOTE | 2022-04-13 12:00 | MHC.CM.PN ---
Patient is homeless and on Methadone. DC Plan is TBD- ? LT IVABT R/T (L) ARM draining wound. D/T IVDA and Methadone, [facility] and/or [facility] [place] would be Patients only possible options in this area if LT IVABT is needed. Patient is not Covid vax'd and PCP is from [facility]. CM has initiated and will follow for dc planning.
[2022-04-13 15:55] VITALS: BP 130/67; PULSE 67; RESP 14; TEMP 36.9; O2SAT 98
--- NOTE | 2022-04-13 18:07 | P.EN_ITS ---
Event Note Date of Service: 04/13/22 Event Note: Addiction consult Attempted to meet with patient in room 14 of ED. Patient sleeping soundly, opened eyes when called, however, unable to remain awake to engage in interview. Did not appear uncomfortable, diaphoretic or restless. Chart review shows methadone 40mg daily ordered and administered today Girlfriend present in room, states she and patient are experiencing homelessness. Plan: Recovery systems support officer to follow up in AM Time Spent With Patient Time: Total time managing care of this patient today ____ minutes.
--- NOTE | 2022-04-13 18:21 | PC.NURSE ---
RN sent tigertext to provider Juvencio per patient request. the pt expressed his dissatisfaction with the PRN 650mg dose of tylenol order for pain requesting a high dose or something stronger as he reports that doesn't tough the pain. Per provider Juvencio pt can have a 1 time dose of dilaudid 0.5mg IVP. Orders to be entered and given to assist with pain.
[2022-04-13 19:35] VITALS: RESP 18
[2022-04-13] MEDS: Morphine Sulfate 2 MG/ML CARTRIDGE 0.5 MG IVPUSH (19:35)
[2022-04-13 19:38] VITALS: BP 132/69; PULSE 65; RESP 17; TEMP 36.7; O2SAT 97
[2022-04-13] MEDS: Melatonin 3 MG TABLET 6 MG PO (20:18)
--- NOTE | 2022-04-13 20:27 | PC.NURSE ---
Care of patient assumed at 1900. He is found sleeping with his girlfriend in stretcher. He awakens and is alert, oriented x3. Urinal bedside emptied of clear, yellow urine. He begins crying and requesting pain medication to abscess to LUE- MD Orona made aware and pain meds ordered/given. Vitals obtained and stable. Patient provided with prn melatonin per request. Bandage to LUE wound removed and area re-dressed with clean dressing by this RN. +CSM to MAURO. +left radial pulse. Triple lumen to right neck flushed and working appropriately.
[2022-04-13 21:50] LABS: COVID-19 Test Negative (Negative)
--- NOTE | 2022-04-13 22:36 | HE.PHANOTE ---
Re Vanco dosing adjustment Trough was supposed to be pulled at 1300 but was not. Level was drawn at 2154 and predicted AUC of 284 so adjusted dose to 1250 q8H due to rapid clearing.
[2022-04-13 23:20] LABS: Creatinine Clr Calc Pharmacy 202.5; Estimated Glomerular Filt Rate > 60
[2022-04-14] VITALS: RESP 17
[2022-04-14] MEDS: vancomycin HCL 1,250 MG in 0.9 % Sodium Chloride 250 ML 166.67 MG IV ×2 (06:25→15:44)
[2022-04-14] MEDS: Acetaminophen 325 MG TABLET 650 MG PO ×2 (06:28→12:26)
[2022-04-14 07:01] LABS: Hematocrit 37.7 % (42.0-52.0); Mean Corpuscular HGB Conc 31.8 g/dl (31.0-36.0); Mean Corpuscular Hemoglobin 26.3 pg (27.0-33.0); Mean Corpuscular Volume 82.5 fL (80.0-98.0); Mean Platelet Volume 9.8 fL (9.4-12.4); Platelet Count 313 X10*3/uL (160-400); Red Blood Count 4.57 X10*6/uL (4.60-5.80); White Blood Count 7.8 X10*3/uL (4.8-10.8)
[2022-04-14 07:33] VITALS: BP 116/70; PULSE 55; RESP 16; O2SAT 97
[2022-04-14 07:34] LABS: Anion Gap 12 (12-20); Blood Urea Nitrogen 6 mg/dL (9-16); Calcium 9.1 mg/dL (8.4-10.2); Carbon Dioxide 27 mmol/L (22-29); Chloride 107 mmol/L (96-108); Creatinine Clr Calc Pharmacy 193.1; Estimated Glomerular Filt Rate > 60; Glucose Fasting 97 mg/dL (60-99); Potassium 3.8 mmol/L (3.3-5.1); Sodium 142 mmol/L (135-145)
[2022-04-14] MEDS: methADONE HCl 20 MG/2 ML ORAL.CONC 40 MG PO (07:44)
--- NOTE | 2022-04-14 08:34 | HO.PM.IMPN ---
Subjective Subjective Date of Service: 04/14/22 Interval History: cc: left arm absecss interval history:withdrawal improved Cardiovascular Cardiovascular: Reports no additional cardiovascular complaints Respiratory Respiratory: Reports no additional respiratory complaints Physical Exam Vital Signs: Vital Signs: Last Vital Signs Temp 98.1 F 04/13/22 19:38 Pulse 55 04/14/22 07:33 Resp 16 04/14/22 07:33 BP 116/70 04/14/22 07:33 Pulse Ox 97 04/14/22 07:33 O2 Del Method 04/14/22 07:33 BMI result Body Mass Index 36.9 General: AO X 3, diaphoretic Resp: CTA bilateral, no accessory muscles used CVS: S1,S2,RRR GI: soft, non tender, non distended Neuro: motor grossly intact, alert Psych: agitated affect, appropriate insight lue erythema, abscess Objective Data Active Medications Acetaminophen (Acetaminophen 325 Mg Tablet) 650 mg PO Q6H PRN PRN Reason: Pain, Mild (Pain Scale 1-3) Last Admin: 04/14/22 06:28 Dose: 650 mg Documented By: AILEEN Vancomycin HCl 1,250 mg/ (Sodium Chloride) 250 mls @ 166.667 mls/hr IV Q8H [facility] Last Infusion: 04/14/22 08:10 Dose: 0 mls/hr Documented By: GUS Melatonin (Melatonin 3 Mg Tablet) 6 mg PO BEDTIME PRN PRN Reason: Insomnia Last Admin: 04/13/22 20:18 Dose: 6 mg Documented By: AILEEN Methadone HCl (Methadone Hcl 20 Mg/2 Ml Oral.Conc) 40 mg PO DAILY [facility] Last Admin: 04/14/22 07:44 Dose: 40 mg Documented By: GUS Ondansetron HCl (Ondansetron Hcl 4 Mg/2 Ml Vial) 4 mg IVPUSH Q8H PRN PRN Reason: Nausea and Vomiting Pharmacy Consult (Consult Rx Vancomycin Dosing) 1 each MISCELLANE DAILY PRN PRN Reason: Consult order Pharmacy Consult (Consult Rx Perform Med Rec) 1 each MISCELLANE ONCE PRN PRN Reason: Consult order Sodium Chloride (0.9 % Sodium Chloride Flush 3 Ml Syringe) 3 ml IVFLUSH QSHIFT [facility] Last Admin: 04/14/22 07:48 Dose: Not Given Documented By: GUS Non-Admin Reason: IV Running Labs CBC & Chem 7: 04/14/22 06:24 04/14/22 06:24 Labs: Laboratory Results - last 24 hr 04/13/22 04/13/22 04/13/22 19:10 21:54 21:54 MCV MCH MCHC RDW Plt Count MPV Absolute Nucleated RBC Nucleated RBC % (auto) Anion Gap Estim Creat Clear Calc 202.5 Estimated GFR > 60 Fasting Glucose Calcium Random Vancomycin 10.0 L COVID-19 (JANKI) Negative COVID-19 Clin Com See Note 04/14/22 04/14/22 06:24 06:24 MCV 82.5 MCH 26.3 L MCHC 31.8 RDW 14.0 Plt Count 313 MPV 9.8 Absolute Nucleated RBC 0.000 Nucleated RBC % (auto) 0.0 Anion Gap 12 Estim Creat Clear Calc 193.1 Estimated GFR > 60 Fasting Glucose 97 Calcium 9.1 Random Vancomycin COVID-19 ([facility]ANKI) COVID-19 Clin Com Assessment and Plan (1) Abscess of skin or subcutaneous tissue: Status: Acute Plan 36-year-old male with pertinent history of IV drug use disorder, mood disorder who presents to the emergency department for evaluation of left upper extremity redness, warmth, draining wound. Sepsis due to purulent cellulitis continue vanc patient refused lactate and blood cultures likely change to po in 1-2 days surgery appreciated continue local care opiate dependence with withdrawal methadone hcv outpatient management DVT prophylaxis:? Low risk, encourage ambulation Full code reason for continued hospitalization: awaiting defervesence Time Spent With Patient Time: Total time managing care of this patient today ____ minutes. Quality Stroke Does the patient have a stroke diagnosis?: No VTE Prior VTE?: No VTE Risk Level:: Medical - moderate - high VTE Device Contraindication: Treatment Not Indicated VTE Drug Contraindication: Treatment Not Indicated
--- NOTE | 2022-04-14 09:00 | PC.NURSE ---
pt requested methadone prior to scheduled time, med given as documented. denies pain/sob. girlfriend at bedside
[2022-04-14 13:48] LABS: Vancomycin Trough 11.6 mcg/mL (10.0-20.0)
--- NOTE | 2022-04-14 14:17 | PC.NURSE ---
pt resting quietly in bed, pain med requested previously, Tylenol given as documented, pain a little better reported by pt. no complaints, girlfriend at bedside
[2022-04-14 15:41] VITALS: BP 107/48; PULSE 58; RESP 13; TEMP 36.9; O2SAT 95
[2022-04-14] MEDS: HYDROmorphone HCl 0.5 MG/0.5 ML SYRINGE IVPUSH ×2 (15:55→20:53)
[2022-04-15 00:53] VITALS: BP 130/59; PULSE 62; RESP 15; TEMP 37; O2SAT 95
[2022-04-15] MEDS: Acetaminophen 325 MG TABLET 650 MG PO ×2 (01:02→20:21)
[2022-04-15] MEDS: vancomycin HCL 1,250 MG in 0.9 % Sodium Chloride 250 ML 166.67 MG IV ×3 (02:52→18:48)
--- NOTE | 2022-04-15 03:23 | PC.NURSE ---
Pt sleeping at this time, respirations regular.
[2022-04-15] MEDS: HYDROmorphone HCl 0.5 MG/0.5 ML SYRINGE IVPUSH ×4 (05:22→20:21)
--- NOTE | 2022-04-15 05:22 | PC.NURSE ---
PT c/o pain, PRN meds given.
[2022-04-15 06:01] VITALS: BP 140/77; PULSE 77; RESP 19; TEMP 36.8; O2SAT 98
[2022-04-15 06:41] LABS: Creatinine Clr Calc Pharmacy 184.6; Estimated Glomerular Filt Rate > 60
[2022-04-15] MEDS: methADONE HCl 20 MG/2 ML ORAL.CONC 50 MG PO (08:30)
--- NOTE | 2022-04-15 08:45 | HO.PM.IMPN ---
Subjective Subjective Date of Service: 04/15/22 Interval History: cc: left arm absecss interval history:withdrawal wrosening Cardiovascular Cardiovascular: Reports no additional cardiovascular complaints Respiratory Respiratory: Reports no additional respiratory complaints Physical Exam Vital Signs: Vital Signs: Last Vital Signs Temp 98.3 F 04/15/22 06:01 Pulse 77 04/15/22 06:01 Resp 19 04/15/22 06:01 BP 140/77 H 04/15/22 06:01 Pulse Ox 98 04/15/22 06:01 O2 Del Method 04/15/22 06:01 BMI result Body Mass Index 36.9 General: AO X 3, diaphoretic Resp: CTA bilateral, no accessory muscles used CVS: S1,S2,RRR GI: soft, non tender, non distended Neuro: motor grossly intact, alert Psych: agitated affect, appropriate insight lue erythema, abscess Objective Data Active Medications Acetaminophen (Acetaminophen 325 Mg Tablet) 650 mg PO Q6H PRN PRN Reason: Pain, Mild (Pain Scale 1-3) Last Admin: 04/15/22 01:02 Dose: 650 mg Documented By: ABY Hydromorphone HCl (Hydromorphone Hcl 0.5 Mg/0.5 Ml Syringe) 0.5 mg IVPUSH Q4H PRN; Protocol PRN Reason: moderate pain Last Admin: 04/15/22 05:22 Dose: 0.5 mg Documented By: DEVIN Vancomycin HCl 1,250 mg/ (Sodium Chloride) 250 mls @ 166.667 mls/hr IV Q8H [facility] Last Infusion: 04/15/22 04:30 Dose: 0 mls/hr Documented By: DEVIN Melatonin (Melatonin 3 Mg Tablet) 6 mg PO BEDTIME PRN PRN Reason: Insomnia Last Admin: 04/13/22 20:18 Dose: 6 mg Documented By: AILEEN Methadone HCl (Methadone Hcl 20 Mg/2 Ml Oral.Conc) 50 mg PO DAILY [facility] Last Admin: 04/15/22 08:30 Dose: 50 mg Documented By: CHRIS Nicotine Polacrilex (Nicotine Polacrilex 2 Mg Gum) 2 mg BUCCAL Q1H PRN PRN Reason: cravings Ondansetron HCl (Ondansetron Hcl 4 Mg/2 Ml Vial) 4 mg IVPUSH Q8H PRN PRN Reason: Nausea and Vomiting Pharmacy Consult (Consult Rx Vancomycin Dosing) 1 each MISCELLANE DAILY PRN PRN Reason: Consult order Pharmacy Consult (Consult Rx Perform Med Rec) 1 each MISCELLANE ONCE PRN PRN Reason: Consult order Sodium Chloride (0.9 % Sodium Chloride Flush 3 Ml Syringe) 3 ml IVFLUSH QSHIFT [facility] Last Admin: 04/15/22 06:57 Dose: Not Given Documented By: CHRIS Non-Admin Reason: Med Not Available Labs CBC & Chem 7: 04/14/22 06:24 04/15/22 05:50 Labs: Laboratory Results - last 24 hr 04/14/22 04/15/22 13:17 05:50 Estim Creat Clear Calc 184.6 Estimated GFR > 60 Vancomycin Trough 11.6 Microbiology Microbiology Results: Microbiology 04/14/22 06:00 Blood Culture - Final Blood - Venous 04/14/22 06:00 Blood Culture - Final Blood - Venous Assessment and Plan (1) Abscess of skin or subcutaneous tissue: Status: Acute Plan 36-year-old male with pertinent history of IV drug use disorder, mood disorder who presents to the emergency department for evaluation of left upper extremity redness, warmth, draining wound. Sepsis due to purulent cellulitis continue vanc patient refused lactate and blood cultures surgery appreciated continue local care pain not controlled, continue opiate therapy opiate dependence with withdrawal methadone hcv outpatient management DVT prophylaxis:? Low risk, encourage ambulation Full code reason for continued hospitalization: awaiting defervesence, pain control Time Spent With Patient Time: Total time managing care of this patient today ____ minutes. Quality Stroke Does the patient have a stroke diagnosis?: No VTE Prior VTE?: No VTE Risk Level:: Medical - moderate - high VTE Device Contraindication: Treatment Not Indicated VTE Drug Contraindication: Treatment Not Indicated
[2022-04-15 10:50] VITALS: BP 114/56; PULSE 57; RESP 18; TEMP 36.8; O2SAT 94
--- NOTE | 2022-04-15 10:59 | MHC.RECOVSUP ---
Recovery Support note: Patient is a 36 year old Upper Sorbian speaking male who presented to [facility] due to an injection site abscess. This story writer met with patient to discuss substance use and withdrawal symptoms on 04/14 and on 04/15. Patient was awake laying in bed with his girlfriend at the bedside when this story writer entered the room. Patient reports using 10 bundles of heroin daily, IV. Patient reports he was previously on 155mg of methadone however stopped abruptly about a month ago. Patient states he recently re-established care with [facility] for methadone maintenance prior to coming to the hospital. Patient continues to report pain and withdrawal symptoms though states this has improved since yesterday. Patient reports body aches, sweats, feeling uncomfortable and being unable to sleep. Patient is interested in meeting with a Automatic Grinding Machine Operator and receiving recovery resources. Recovery Support Team will follow up with patient. Discussed case with Astrid Avila NP.
[2022-04-15] MEDS: Nicotine Polacrilex 2 MG GUM BUCCAL ×3 (11:28→18:48)
[2022-04-15] MEDS: 0.9 % Sodium Chloride Flush 3 ML SYRINGE IVFLUSH ×2 (15:36→20:27)
[2022-04-15 15:52] VITALS: BP 130/63; PULSE 65; RESP 17; TEMP 37.1; O2SAT 95
[2022-04-15 17:02] LABS: Vancomycin Trough 12.3 mcg/mL (10.0-20.0)
--- NOTE | 2022-04-15 17:35 | HE.PHANOTE ---
JASSI GUAJARDO CONTINUE CURRENT DOSE; BASED PN TROUGH OF 12.3, AUC IS 568. NEXT LEVEL DUE 04/16@1600 QUINTIN
[2022-04-15 20:00] VITALS: BP 127/62; PULSE 65; RESP 18; TEMP 36.4; O2SAT 96
[2022-04-16] VITALS (7 sets, daily range): BP systolic 117–118; BP diastolic 56–61; PULSE 59–73; RESP 18–19; TEMP 36.4–37.1; O2SAT 96–97
[2022-04-16] MEDS: HYDROmorphone HCl 0.5 MG/0.5 ML SYRINGE IVPUSH ×3 (01:00→12:58)
[2022-04-16] MEDS: vancomycin HCL 1,250 MG in 0.9 % Sodium Chloride 250 ML 166.67 MG IV ×3 (02:41→18:15)
[2022-04-16] MEDS: traMADoL HCL 50 MG TABLET PO (03:18)
[2022-04-16] MEDS: diphenhydrAMINE HCL 25 MG CAPSULE 50 MG PO (03:18)
[2022-04-16 07:24] LABS: Creatinine Clr Calc Pharmacy 181.9; Estimated Glomerular Filt Rate > 60
[2022-04-16] MEDS: methADONE HCl 20 MG/2 ML ORAL.CONC 50 MG PO (08:31)
[2022-04-16] MEDS: Nicotine Polacrilex 2 MG GUM BUCCAL ×4 (08:31→18:15)
[2022-04-16] MEDS: 0.9 % Sodium Chloride Flush 3 ML SYRINGE IVFLUSH ×3 (08:32→20:54)
--- NOTE | 2022-04-16 09:32 | HO.PM.IMPN ---
Subjective Subjective Date of Service: 04/16/22 Interval History: cc: left arm absecss interval history:developing another area of fluctuance on lue Cardiovascular Cardiovascular: Reports no additional cardiovascular complaints Respiratory Respiratory: Reports no additional respiratory complaints Physical Exam Vital Signs: Vital Signs: Last Vital Signs Temp 97.5 F 04/16/22 07:06 Pulse 73 04/16/22 07:06 Resp 18 04/16/22 08:31 BP 117/56 L 04/16/22 07:06 Pulse Ox 96 04/16/22 07:06 O2 Del Method 04/16/22 07:06 BMI result Body Mass Index 36.9 General: AO X 3, diaphoretic Resp: CTA bilateral, no accessory muscles used CVS: S1,S2,RRR GI: soft, non tender, non distended Neuro: motor grossly intact, alert Psych: agitated affect, appropriate insight lue erythema, abscess Objective Data Active Medications Acetaminophen (Acetaminophen 325 Mg Tablet) 650 mg PO Q6H PRN PRN Reason: Pain, Mild (Pain Scale 1-3) Last Admin: 04/15/22 20:21 Dose: 650 mg Documented By: CARMENCITA Hydromorphone HCl (Hydromorphone Hcl 0.5 Mg/0.5 Ml Syringe) 0.5 mg IVPUSH Q4H PRN; Protocol PRN Reason: moderate pain Last Admin: 04/16/22 08:31 Dose: 0.5 mg Documented By: PHIL Vancomycin HCl 1,250 mg/ (Sodium Chloride) 250 mls @ 166.667 mls/hr IV Q8H [facility] Last Infusion: 04/16/22 04:50 Dose: 0 mls/hr Documented By: CARMENCITA Melatonin (Melatonin 3 Mg Tablet) 6 mg PO BEDTIME PRN PRN Reason: Insomnia Last Admin: 04/13/22 20:18 Dose: 6 mg Documented By: AILEEN Methadone HCl (Methadone Hcl 20 Mg/2 Ml Oral.Conc) 50 mg PO DAILY [facility] Last Admin: 04/16/22 08:31 Dose: 50 mg Documented By: PHIL Nicotine Polacrilex (Nicotine Polacrilex 2 Mg Gum) 2 mg BUCCAL Q1H PRN PRN Reason: cravings Last Admin: 04/16/22 08:31 Dose: 2 mg Documented By: HO.COTEMA Ondansetron HCl (Ondansetron Hcl 4 Mg/2 Ml Vial) 4 mg IVPUSH Q8H PRN PRN Reason: Nausea and Vomiting Pharmacy Consult (Consult Rx Vancomycin Dosing) 1 each MISCELLANE DAILY PRN PRN Reason: Consult order Pharmacy Consult (Consult Rx Perform Med Rec) 1 each MISCELLANE ONCE PRN PRN Reason: Consult order Sodium Chloride (0.9 % Sodium Chloride Flush 3 Ml Syringe) 3 ml IVFLUSH QSHIFT [facility] Last Admin: 04/16/22 08:32 Dose: 3 ml Documented By: COTREFUGIO Labs CBC & Chem 7: 04/14/22 06:24 04/16/22 06:07 Labs: Laboratory Results - last 24 hr 04/15/22 04/16/22 16:40 06:07 Estim Creat Clear Calc 181.9 Estimated GFR > 60 Vancomycin Trough 12.3 Assessment and Plan (1) Abscess of skin or subcutaneous tissue: Status: Acute Plan 36-year-old male with pertinent history of IV drug use disorder, mood disorder who presents to the emergency department for evaluation of left upper extremity redness, warmth, draining wound. Sepsis due to purulent cellulitis continue vanc patient refused lactate and blood cultures surgery appreciated continue local care ?need to drain second area of fluctuance continue opiate therapy for pain opiate dependence with withdrawal methadone hcv outpatient management DVT prophylaxis:? Low risk, encourage ambulation Full code reason for continued hospitalization: awaiting defervesence, pain control Time Spent With Patient Time: Total time managing care of this patient today ____ minutes. Quality Stroke Does the patient have a stroke diagnosis?: No VTE Prior VTE?: No VTE Risk Level:: Medical - moderate - high VTE Device Contraindication: Treatment Not Indicated VTE Drug Contraindication: Treatment Not Indicated
--- NOTE | 2022-04-16 10:21 | MHC.CM.PN ---
NO SNF REFERRALS PLACED. IN THE EVENT HE DOES REQUIRE LT IV ABX, REFERRAL NOW PLACED TO [facility] FOR POSSIBLE BED OFFER AND INSURANCE BENEFITS FOR SNF STAY.
--- NOTE | 2022-04-16 10:31 | P.PNGS_ITS ---
Subjective Subjective Date of Service: 04/16/22 Interval history: Patient reports a new area of fluctuance below the antecubital fossa which is tender to palpation. This is located an area of previous injections. Physical Exam Vital Signs: Vital Signs: Last Vital Signs Temp 97.5 F 04/16/22 07:06 Pulse 73 04/16/22 07:06 Resp 18 04/16/22 08:31 BP 117/56 L 04/16/22 07:06 Pulse Ox 96 04/16/22 07:06 O2 Del Method 04/16/22 07:06 BMI result Body Mass Index 36.9 Const: General: comfortable Nutritional Appearance: well nourished Orientation/consciousness: patient oriented x3 Resp: Effort & Inspection: normal respiratory effort Skin: General skin exam: no rashes or lesions noted Neuro: General: patient oriented x3 Extrem: Other: Left forearm with a new area of fluctuance measuring approximately 2 cm in diameter, tender to palpation. Minimal erythema is noted however the site is directly below an area of obvious track mahmood. Findings are suggestive of an abscess. Elbow/forearm/wrist images: 1. Area of fluctuance left forearm, volar surface Objective Data Active Medications Acetaminophen (Acetaminophen 325 Mg Tablet) 650 mg PO Q6H PRN PRN Reason: Pain, Mild (Pain Scale 1-3) Last Admin: 04/15/22 20:21 Dose: 650 mg Documented By: CARMENCITA Hydromorphone HCl (Hydromorphone Hcl 0.5 Mg/0.5 Ml Syringe) 0.5 mg IVPUSH Q4H PRN; Protocol PRN Reason: moderate pain Last Admin: 04/16/22 08:31 Dose: 0.5 mg Documented By: PHIL Vancomycin HCl 1,250 mg/ (Sodium Chloride) 250 mls @ 166.667 mls/hr IV Q8H [facility] Last Infusion: 04/16/22 04:50 Dose: 0 mls/hr Documented By: CARMENCITA Melatonin (Melatonin 3 Mg Tablet) 6 mg PO BEDTIME PRN PRN Reason: Insomnia Last Admin: 04/13/22 20:18 Dose: 6 mg Documented By: AILEEN Methadone HCl (Methadone Hcl 20 Mg/2 Ml Oral.Conc) 50 mg PO DAILY [facility] Last Admin: 04/16/22 08:31 Dose: 50 mg Documented By: PHIL Nicotine Polacrilex (Nicotine Polacrilex 2 Mg Gum) 2 mg BUCCAL Q1H PRN PRN Reason: cravings Last Admin: 04/16/22 08:31 Dose: 2 mg Documented By: PHIL Ondansetron HCl (Ondansetron Hcl 4 Mg/2 Ml Vial) 4 mg IVPUSH Q8H PRN PRN Reason: Nausea and Vomiting Pharmacy Consult (Consult Rx Vancomycin Dosing) 1 each MISCELLANE DAILY PRN PRN Reason: Consult order Pharmacy Consult (Consult Rx Perform Med Rec) 1 each MISCELLANE ONCE PRN PRN Reason: Consult order Sodium Chloride (0.9 % Sodium Chloride Flush 3 Ml Syringe) 3 ml IVFLUSH QSHIFT [facility] Last Admin: 04/16/22 08:32 Dose: 3 ml Documented By: PHIL Labs CBC & Chem 7: 04/14/22 06:24 04/16/22 06:07 Labs: Laboratory Results - last 24 hr 04/15/22 04/16/22 16:40 06:07 Estim Creat Clear Calc 181.9 Estimated GFR > 60 Vancomycin Trough 12.3 Procedures Date of Service Date of Service: 04/16/22 Progress Note: A&P Assessment and plan (1) Abscess of skin or subcutaneous tissue: Status: Acute Plan Abscess left forearm associated with prior IV drug injection. Patient will require incision and drainage of this new area which could be performed at the bedside under local anesthesia. I discussed the procedure, risks and benefits and he consents to the procedure. I will return later today to perform the drainage. Time Spent With Patient Time: Total time managing care of this patient today ____ minutes. Quality Stroke Does the patient have a stroke diagnosis?: No VTE Prior VTE?: No VTE Risk Level:: Medical - moderate - high VTE Device Contraindication: Treatment Not Indicated VTE Drug Contraindication: Treatment Not Indicated
--- NOTE | 2022-04-16 10:51 | MHC.RECOVRN ---
Met with pt to follow up regarding methadone titration. Pt laying in bed with girlfriend, does not appear to be experiencing withdrawal. Awake, alert, easily engages in conversation. Pt has received 50 mg x 2 days, states I'm supposed to be up to 70 by now. Pt reports restarting with [facility] on when provider encouraged pt to come to ED to assess abscess. Pt states I got 40 and was supposed to go up to 60 the next day. Pt informs t/w the rapid increase was due to having been receiving 155 mg methadone as recent as 5 weeks ago. Pt had a recurrence and was unable to make it to the [facility]. Pt reports feeling better and is requesting to continue titration. Denies questions or concerns at this time. Discussed with Astrid Avila APRN.
--- NOTE | 2022-04-16 13:56 | HO.ADDICTPRO ---
Subjective Subjective Date of Service: 04/16/22 Reason For Visit: upper extremity wound Interim History: Patient seen in follow up. Additional history obtained. h He reports that approx 4-5 weeks ago he abruptly stopped treatment for OUD. He was being prescribed methadone 155mg QD through [facility] (per his report) and had several things happen in his personal life including a recurrence of heroin use. He reports using up to 10 bundles of heroin/fentanyl daily QD then re-engaged in treatment at [facility] right before [place] [facility] [place]ose increased to 50mg QD. Still reporting chills, poor sleep, body aches, restlessness, diaphoretic at times. He would like to continue dose titration. Review of Systems Constitutional: Reports as per [facility] Mental Status Exam Mental Status Exam Patient Appearance: Appropriate Patient Orientation: Person, Place, Time and Situation Level of Consciousness: Awake and Appropriate Patient Behavior: Appropriate Affect Description: Calm and Anxious Speech Pattern: Clear Diagnostics Vital Signs (24Hr): Vital Signs - 24 hr 04/15/22 15:52 04/15/22 20:00 04/16/22 07:06 Temperature 98.7 F 97.6 F 97.5 F Pulse Rate 65 65 73 Respiratory Rate 17 18 18 Blood Pressure 130/63 127/62 117/56 L Pulse Oximetry 95 96 96 Oxygen Delivery Method Room Air Room Air Room Air 04/16/22 08:31 04/16/22 12:58 Temperature Pulse Rate Respiratory Rate 18 18 Blood Pressure Pulse Oximetry Oxygen Delivery Method BMI result Body Mass Index 36.9 Labs Results: 04/14/22 06:24 04/16/22 06:07 Labs: Laboratory Results - last 48 hr 04/15/22 04/15/22 04/16/22 05:50 16:40 06:07 Creatinine 0.68 0.69 Estim Creat Clear Calc 184.6 181.9 Estimated GFR > 60 > 60 Vancomycin Trough 12.3 Imaging Radiology Impressions: ITS Impressions Venous Duplex 04/12/22 11:22 IMPRESSION: No evidence for deep venous thrombosis in the visualized veins of the bilateral lower extremities. Chest X-Ray 04/12/22 15:04 IMPRESSION: No acute cardiopulmonary process. Humerus CT 04/12/22 17:23 Impression: There is skin thickening and soft tissue stranding/edema about the arm with more focal phlegmonous change in the antecubital fossa. I do not appreciate a discrete drainable collection at this time. There is a single tiny bubble of air in the subcutaneous tissue possibly within a tiny vein of uncertain significance or etiology as described above. Medications Medications Current Medications Acetaminophen (Acetaminophen 325 Mg Tablet) 650 mg PO Q6H PRN PRN Reason: Pain, Mild (Pain Scale 1-3) Last Admin: 04/15/22 20:21 Dose: 650 mg Hydromorphone HCl (Hydromorphone Hcl 0.5 Mg/0.5 Ml Syringe) 0.5 mg IVPUSH Q4H PRN; Protocol PRN Reason: moderate pain Last Admin: 04/16/22 12:58 Dose: 0.5 mg Vancomycin HCl 1,250 mg/ (Sodium Chloride) 250 mls @ 166.667 mls/hr IV Q8H [facility] Last Infusion: 04/16/22 13:00 Dose: Infused Melatonin (Melatonin 3 Mg Tablet) 6 mg PO BEDTIME PRN PRN Reason: Insomnia Last Admin: 04/13/22 20:18 Dose: 6 mg Methadone HCl (Methadone Hcl 20 Mg/2 Ml Oral.Conc) 65 mg PO DAILY [facility]IE Methadone HCl (Methadone Hcl 20 Mg/2 Ml Oral.Conc) 10 mg PO ONCE ONE Stop: 04/16/22 16:01 Nicotine Polacrilex (Nicotine Polacrilex 2 Mg Gum) 2 mg BUCCAL Q1H PRN PRN Reason: cravings Last Admin: 04/16/22 13:04 Dose: 2 mg Ondansetron HCl (Ondansetron Hcl 4 Mg/2 Ml Vial) 4 mg IVPUSH Q8H PRN PRN Reason: Nausea and Vomiting Pharmacy Consult (Consult Rx Vancomycin Dosing) 1 each MISCELLANE DAILY PRN PRN Reason: Consult order Pharmacy Consult (Consult Rx Perform Med Rec) 1 each MISCELLANE ONCE PRN PRN Reason: Consult order Sodium Chloride (0.9 % Sodium Chloride Flush 3 Ml Syringe) 3 ml IVFLUSH QSHIFT [facility] Last Admin: 04/16/22 08:32 Dose: 3 ml Allergies Allergies Allergy/AdvReac Type Severity Reaction Status Date / Time shellfish derived Allergy Severe ANAPHAYLAXI Verified 12/13/21 08:54 [SHELLFISH DERIVED] A Assessment & Plan Assessment & Plan (1) Opioid use disorder, severe, dependence: Status: Acute Code(s): F11.20 - Opioid dependence, uncomplicated Assessment and Plan: additional 10mg methadone later this afternoon tomorrow dose increase to methadone 65mg QD already connected to N OTP Total time managing care of this patient today __25__ minutes.
--- NOTE | 2022-04-16 14:32 | P.OP_ITS ---
Operative Note Operative Note Date of Service: 04/16/22 Narrative: Preoperative diagnosis: Abscess left forearm Postoperative diagnosis: Abscess left forearm Procedure: Incision and drainage abscess left forearm Surgeon: Guillermo Mendez MD Shop Firer/Fireman: SUZIE Lynch Anesthesia: Lidocaine 1% plain Indications for procedure: 36-year-old male patient with a previous abscess in the upper arm left side now presenting with a new abscess in the lower arm just below the antecubital fossa. Patient has a history of IVDA with track mahmood over the area of fluctuance. Operative findings: Abscess measuring approximately 1.5 cm in diameter just below the antecubital fossa tracking upward above the antecubital fossa. Specimen: None Estimated blood loss: None Complications: None Procedure details: Procedure was performed at the bedside. The site of surgery confirmed by the patient in the left forearm. After assuring informed consent the skin was prepped with Betadine and draped in a sterile fashion. Local anesthesia was then infiltrated in longitudinal fashion directly over the fluctuant area. Incision was then made with an 11 blade into the abscess cavity. Combination of old blood and abscess was drained. A pocket extending superiorly and medially was identified. This collection was drained and packed with quarter-inch Nu Gauze. Dry sterile dressings were then applied. The patient tolerated the procedure well.
[2022-04-16] MEDS: methADONE HCl 20 MG/2 ML ORAL.CONC 10 MG PO (15:30)
[2022-04-16] MEDS: HYDROmorphone HCl 1 MG/ML SYRINGE IVPUSH (15:30)
[2022-04-16 16:32] LABS: Vancomycin Random 15.8 mcg/mL (15-20)
--- NOTE | 2022-04-16 17:53 | HE.PHANOTE ---
VANCO TROUGH 15.8, AUC EXPECTED 430. KEEP SAME DOSE
[2022-04-16] MEDS: HYDROmorphone HCl 0.5 MG/0.5 ML SYRINGE 1 MG IVPUSH ×2 (18:16→23:13)
[2022-04-16] MEDS: Melatonin 3 MG TABLET 6 MG PO (21:02)
[2022-04-17] VITALS (7 sets, daily range): BP systolic 107–139; BP diastolic 53–72; PULSE 60–69; RESP 15–18; TEMP 36.1–37; O2SAT 96–97
[2022-04-17] MEDS: HYDROmorphone HCl 0.5 MG/0.5 ML SYRINGE 1 MG IVPUSH ×5 (03:24→22:50)
[2022-04-17] MEDS: vancomycin HCL 1,250 MG in 0.9 % Sodium Chloride 250 ML 166.67 MG IV ×3 (03:24→18:32)
[2022-04-17 06:11] LABS: Hematocrit 40.2 % (42.0-52.0); Hemoglobin 13.1 g/dl (14.0-18.0); Mean Corpuscular HGB Conc 32.6 g/dl (31.0-36.0); Mean Corpuscular Hemoglobin 26.8 pg (27.0-33.0); Mean Corpuscular Volume 82.2 fL (80.0-98.0); Mean Platelet Volume 9.6 fL (9.4-12.4); Platelet Count 321 X10*3/uL (160-400); Red Blood Count 4.89 X10*6/uL (4.60-5.80); Red Cell Distribution Width 14.2 % (11.0-16.0); White Blood Count 10.3 X10*3/uL (4.8-10.8)
[2022-04-17 06:41] LABS: Anion Gap 11 (12-20); Blood Urea Nitrogen 13 mg/dL (9-16); Calcium 9.3 mg/dL (8.4-10.2); Carbon Dioxide 28 mmol/L (22-29); Chloride 106 mmol/L (96-108); Estimated Glomerular Filt Rate > 60; Glucose Fasting 91 mg/dL (60-99); Sodium 141 mmol/L (135-145)
--- NOTE | 2022-04-17 07:59 | PM.PNGS ---
Subjective Subjective Date of Service: 04/17/22 Interval history: No new complaints, does have some soreness at the I and D site. Physical Exam Vital Signs: Vital Signs: Last Vital Signs Temp 98.3 F 04/17/22 07:07 Pulse 69 04/17/22 07:07 Resp 18 04/17/22 07:07 BP 136/71 04/17/22 07:07 Pulse Ox 97 04/17/22 07:07 O2 Del Method 04/17/22 07:07 BMI result Body Mass Index 36.9 Const: General: comfortable Nutritional Appearance: well nourished Orientation/consciousness: patient oriented x3 Resp: Effort & Inspection: normal respiratory effort Skin: Other: Warm, dry, no rash Neuro: General: patient oriented x3 Extrem: Other: Left upper extremity dressings changed. Purulence discharge noted from I and D site. Packing advanced in clean dressings applied with stockinette Objective Data Active Medications Acetaminophen (Acetaminophen 325 Mg Tablet) 650 mg PO Q6H PRN PRN Reason: Pain, Mild (Pain Scale 1-3) Last Admin: 04/15/22 20:21 Dose: 650 mg Documented By: CARMENCITA Hydromorphone HCl (Hydromorphone Hcl 0.5 Mg/0.5 Ml Syringe) 1 mg IVPUSH Q4H PRN; Protocol PRN Reason: moderate pain Last Admin: 04/17/22 03:24 Dose: 1 mg Documented By: SHARONDA Vancomycin HCl 1,250 mg/ (Sodium Chloride) 250 mls @ 166.667 mls/hr IV Q8H [facility] Last Infusion: 04/17/22 05:05 Dose: 0 mls/hr Documented By: SHARONDA Melatonin (Melatonin 3 Mg Tablet) 6 mg PO BEDTIME PRN PRN Reason: Insomnia Last Admin: 04/16/22 21:02 Dose: 6 mg Documented By: SHARONDA Methadone HCl (Methadone Hcl 20 Mg/2 Ml Oral.Conc) 65 mg PO DAILY CORIE Nicotine Polacrilex (Nicotine Polacrilex 2 Mg Gum) 2 mg BUCCAL Q1H PRN PRN Reason: cravings Last Admin: 04/16/22 18:15 Dose: 2 mg Documented By: COTEMA Ondansetron HCl (Ondansetron Hcl 4 Mg/2 Ml Vial) 4 mg IVPUSH Q8H PRN PRN Reason: Nausea and Vomiting Pharmacy Consult (Consult Rx Vancomycin Dosing) 1 each MISCELLANE DAILY PRN PRN Reason: Consult order Pharmacy Consult (Consult Rx Perform Med Rec) 1 each MISCELLANE ONCE PRN PRN Reason: Consult order Sodium Chloride (0.9 % Sodium Chloride Flush 3 Ml Syringe) 3 ml IVFLUSH QSHIFT [facility] Last Admin: 04/16/22 20:54 Dose: 3 ml Documented By: SHARONDA Labs CBC & Chem 7: 04/17/22 05:33 04/17/22 05:33 Labs: Laboratory Results - last 24 hr 04/16/22 04/17/22 04/17/22 16:01 05:33 05:33 MCV 82.2 MCH 26.8 L MCHC 32.6 RDW 14.2 Plt Count 321 MPV 9.6 Absolute Nucleated RBC 0.000 Nucleated RBC % (auto) 0.0 Anion Gap 11 L Estim Creat Clear Calc 172.0 Estimated GFR > 60 Fasting Glucose 91 Calcium 9.3 Random Vancomycin 15.8 Procedures Date of Service Date of Service: 04/17/22 Progress Note: A&P Assessment and plan (1) Abscess of skin or subcutaneous tissue: Status: Acute Plan 36-year-old male patient with history of IVDA, s/p I&D left arm abscess. Wounds are draining appropriately purulence discharge. Overall wounds are much improved. Continue local wound care with dressing changes daily. Time Spent With Patient Time: Total time managing care of this patient today ____ minutes. Quality Stroke Does the patient have a stroke diagnosis?: No VTE Prior VTE?: No VTE Risk Level:: Medical - moderate - high VTE Device Contraindication: Treatment Not Indicated VTE Drug Contraindication: Treatment Not Indicated
[2022-04-17] MEDS: Nicotine Polacrilex 2 MG GUM BUCCAL ×5 (08:02→18:34)
[2022-04-17] MEDS: methADONE HCl 20 MG/2 ML ORAL.CONC 65 MG PO (08:02)
[2022-04-17] MEDS: 0.9 % Sodium Chloride Flush 3 ML SYRINGE IVFLUSH ×2 (08:02→16:54)
--- NOTE | 2022-04-17 08:22 | HO.PM.IMPN ---
Subjective Subjective Date of Service: 04/17/22 Interval History: cc: left arm absecss interval history:improving after drainage Cardiovascular Cardiovascular: Reports no additional cardiovascular complaints Respiratory Respiratory: Reports no additional respiratory complaints Physical Exam Vital Signs: Vital Signs: Last Vital Signs Temp 98.3 F 04/17/22 07:07 Pulse 69 04/17/22 07:07 Resp 18 04/17/22 08:02 BP 136/71 04/17/22 07:07 Pulse Ox 97 04/17/22 07:07 O2 Del Method 04/17/22 07:07 BMI result Body Mass Index 36.9 General: AO X 3, diaphoretic Resp: CTA bilateral, no accessory muscles used CVS: S1,S2,RRR GI: soft, non tender, non distended Neuro: motor grossly intact, alert Psych: agitated affect, appropriate insight lue wounds s/p i and d Objective Data Active Medications Acetaminophen (Acetaminophen 325 Mg Tablet) 650 mg PO Q6H PRN PRN Reason: Pain, Mild (Pain Scale 1-3) Last Admin: 04/15/22 20:21 Dose: 650 mg Documented By: CARMENCITA Hydromorphone HCl (Hydromorphone Hcl 0.5 Mg/0.5 Ml Syringe) 1 mg IVPUSH Q4H PRN; Protocol PRN Reason: moderate pain Last Admin: 04/17/22 08:02 Dose: 1 mg Documented By: PHIL Vancomycin HCl 1,250 mg/ (Sodium Chloride) 250 mls @ 166.667 mls/hr IV Q8H [facility] Last Infusion: 04/17/22 05:05 Dose: 0 mls/hr Documented By: SHARONDA Melatonin (Melatonin 3 Mg Tablet) 6 mg PO BEDTIME PRN PRN Reason: Insomnia Last Admin: 04/16/22 21:02 Dose: 6 mg Documented By: SHARONDA Methadone HCl (Methadone Hcl 20 Mg/2 Ml Oral.Conc) 65 mg PO DAILY [facility] Last Admin: 04/17/22 08:02 Dose: 65 mg Documented By: PHIL Nicotine Polacrilex (Nicotine Polacrilex 2 Mg Gum) 2 mg BUCCAL Q1H PRN PRN Reason: cravings Last Admin: 04/17/22 08:02 Dose: 2 mg Documented By: PHIL Ondansetron HCl (Ondansetron Hcl 4 Mg/2 Ml Vial) 4 mg IVPUSH Q8H PRN PRN Reason: Nausea and Vomiting Pharmacy Consult (Consult Rx Vancomycin Dosing) 1 each MISCELLANE DAILY PRN PRN Reason: Consult order Pharmacy Consult (Consult Rx Perform Med Rec) 1 each MISCELLANE ONCE PRN PRN Reason: Consult order Sodium Chloride (0.9 % Sodium Chloride Flush 3 Ml Syringe) 3 ml IVFLUSH QSHIFT [facility] Last Admin: 04/17/22 08:02 Dose: 3 ml Documented By: PHIL Labs CBC & Chem 7: 04/17/22 05:33 04/17/22 05:33 Labs: Laboratory Results - last 24 hr 04/16/22 04/17/22 04/17/22 16:01 05:33 05:33 MCV 82.2 MCH 26.8 L MCHC 32.6 RDW 14.2 Plt Count 321 MPV 9.6 Absolute Nucleated RBC 0.000 Nucleated RBC % (auto) 0.0 Anion Gap 11 L Estim Creat Clear Calc 172.0 Estimated GFR > 60 Fasting Glucose 91 Calcium 9.3 Random Vancomycin 15.8 Assessment and Plan (1) Abscess of skin or subcutaneous tissue: Status: Acute Plan 36-year-old male with pertinent history of IV drug use disorder, mood disorder who presents to the emergency department for evaluation of left upper extremity redness, warmth, draining wound. Sepsis due to purulent cellulitis continue vanc patient refused lactate and blood cultures surgery appreciated s/p I and D 04/16/22 continue local care continue opiate therapy for pain opiate dependence with withdrawal methadone hcv outpatient management DVT prophylaxis:? Low risk, encourage ambulation Full code reason for continued hospitalization: pain control Time Spent With Patient Time: Total time managing care of this patient today ____ minutes. Quality Stroke Does the patient have a stroke diagnosis?: No VTE Prior VTE?: No VTE Risk Level:: Medical - moderate - high VTE Device Contraindication: Treatment Not Indicated VTE Drug Contraindication: Treatment Not Indicated
--- NOTE | 2022-04-17 14:43 | MHC.CM.PN ---
[place]AN [facility] FOR [place] [facility] NO COMMITMENT OF BED OFFER OF THIS NOTE
[2022-04-17 17:27] LABS: Vancomycin Trough 14.6 mcg/mL (10.0-20.0)
[2022-04-17] MEDS: Acetaminophen 325 MG TABLET 650 MG PO (18:41)
--- NOTE | 2022-04-17 18:41 | MHC.RECOVSUP ---
? Reason for consult Recovery Support o Current location: 375-1 o Identified substance use concern: Heroin - Support ? Intervention: <del>o</del> <del>ATS</del> <del>bed</del> <del>search</del> <del>started/completed/in</del> <del>process</del> <del>o</del> <del>MAT</del> <del>started</del> <del>or</del> <del>to</del> <del>be</del> <del>started</del> <del>o</del> <del>Community</del> <del>resources</del> <del>provided</del> <del>o</del> <del>Harm</del> <del>reduction</del> <del>discussion</del> ? Plan: <del>o</del> <del>Referral</del> <del>to</del> <del>[facility]</del> <del>o</del> <del>Bed</del> <del>search</del> <del>in</del> <del>progress</del> <del>to</del> <del>o</del> <del>Follow</del> <del>up</del> <del>tomorrow</del> <del>o</del> <del>Patient</del> <del>awaiting</del> <del>crisis</del> <del>evaluation</del> <del>o</del> <del>Patient</del> <del>to</del> <del>follow</del> <del>up</del> <del>with</del> <del>[facility]</del> <del>after</del> <del>discharge</del> ? Additional information: Met with Patient but patient did not want to talk at the moment due to a friend or family being there..
[2022-04-17] MEDS: Melatonin 3 MG TABLET 6 MG PO (22:52)
[2022-04-18 04:00] VITALS: BP 113/61; PULSE 58; RESP 17; TEMP 36.3; O2SAT 95
[2022-04-18] MEDS: vancomycin HCL 1,250 MG in 0.9 % Sodium Chloride 250 ML 166.67 MG IV ×2 (04:06→12:53)
[2022-04-18] MEDS: HYDROmorphone HCl 0.5 MG/0.5 ML SYRINGE 1 MG IVPUSH (04:07)
[2022-04-18 07:22] LABS: Creatinine Clr Calc Pharmacy 184.6; Estimated Glomerular Filt Rate > 60
[2022-04-18 07:50] VITALS: BP 120/72; PULSE 73; RESP 17; TEMP 37.3; O2SAT 97
[2022-04-18] MEDS: methADONE HCl 20 MG/2 ML ORAL.CONC 65 MG PO (08:11)
[2022-04-18] MEDS: 0.9 % Sodium Chloride Flush 3 ML SYRINGE IVFLUSH (08:13)
--- NOTE | 2022-04-18 08:23 | PM.PNGS ---
Subjective Subjective Date of Service: 04/18/22 Interval history: Patient reports some left arm pain but generally feels improved. Dressings were changed last night and wick apparently fell out. He denies any new skin changes. Physical Exam Vital Signs: Vital Signs: Last Vital Signs Temp 99.1 F 04/18/22 07:50 Pulse 73 04/18/22 07:50 Resp 17 04/18/22 07:50 BP 120/72 04/18/22 07:50 Pulse Ox 97 04/18/22 07:50 O2 Del Method 04/18/22 07:50 BMI result Body Mass Index 36.9 Const: General: comfortable Nutritional Appearance: well nourished Orientation/consciousness: patient oriented x3 Limitations: no limitations Resp: Effort & Inspection: normal respiratory effort Skin: General skin exam: no rashes or lesions noted Neuro: General: patient oriented x3 Extrem: Other: Dressings changed to the left arm. No erythema remains. The lesion above the antecubital fossa is open and granulating. No evidence of new abscess or skin necrosis. Second incision and drainage site below the antecubital crease is clean and non fluctuant. Sterile dressings applied. Objective Data Active Medications Acetaminophen (Acetaminophen 325 Mg Tablet) 650 mg PO Q6H PRN PRN Reason: Pain, Mild (Pain Scale 1-3) Last Admin: 04/17/22 18:41 Dose: 650 mg Documented By: COTEMA Hydromorphone HCl (Hydromorphone Hcl 1 Mg/Ml Syringe) 1 mg IVPUSH Q4H PRN; Protocol PRN Reason: moderate pain Vancomycin HCl 1,250 mg/ (Sodium Chloride) 250 mls @ 166.667 mls/hr IV Q8H [facility] Last Infusion: 04/18/22 05:49 Dose: 0 mls/hr Documented By: CELIA Melatonin (Melatonin 3 Mg Tablet) 6 mg PO BEDTIME PRN PRN Reason: Insomnia Last Admin: 04/17/22 22:52 Dose: 6 mg Documented By: CELIA Methadone HCl (Methadone Hcl 20 Mg/2 Ml Oral.Conc) 65 mg PO DAILY [facility] Last Admin: 04/18/22 08:11 Dose: 65 mg Documented By: RADHA Nicotine Polacrilex (Nicotine Polacrilex 2 Mg Gum) 2 mg BUCCAL Q1H PRN PRN Reason: cravings Last Admin: 04/17/22 18:34 Dose: 2 mg Documented By: COTEMA Ondansetron HCl (Ondansetron Hcl 4 Mg/2 Ml Vial) 4 mg IVPUSH Q8H PRN PRN Reason: Nausea and Vomiting Pharmacy Consult (Consult Rx Vancomycin Dosing) 1 each MISCELLANE DAILY PRN PRN Reason: Consult order Pharmacy Consult (Consult Rx Perform Med Rec) 1 each MISCELLANE ONCE PRN PRN Reason: Consult order Sodium Chloride (0.9 % Sodium Chloride Flush 3 Ml Syringe) 3 ml IVFLUSH QSHIFT [facility] Last Admin: 04/18/22 08:13 Dose: 3 ml Documented By: RADHA Labs CBC & Chem 7: 04/17/22 05:33 04/18/22 06:09 Labs: Laboratory Results - last 24 hr 04/17/22 04/18/22 16:52 06:09 Estim Creat Clear Calc 184.6 Estimated GFR > 60 Vancomycin Trough 14.6 Procedures Date of Service Date of Service: 04/18/22 Progress Note: A&P Assessment and plan (1) Abscess of skin or subcutaneous tissue: Status: Acute Plan S/P incision and drainage of abscess left arm. Wounds are much improved today with no further erythema or fluctuance. Which is now removed. Patient will need daily dry sterile dressings to the left arm. Diffuse discharge he should follow up in the office in approximately 1-2 weeks for wound check. Time Spent With Patient Time: Total time managing care of this patient today ____ minutes. Quality Stroke Does the patient have a stroke diagnosis?: No VTE Prior VTE?: No VTE Risk Level:: Medical - moderate - high VTE Device Contraindication: Treatment Not Indicated VTE Drug Contraindication: Treatment Not Indicated
[2022-04-18] MEDS: HYDROmorphone HCl 1 MG/ML SYRINGE IVPUSH ×3 (08:29→12:55)
--- NOTE | 2022-04-18 09:56 | P.DS_ITS ---
DS: Providers Provider Date of Service: 04/18/22 Date of admission: 04/12/22 20:46 Primary care physician: [facility] Consults: 04/12/22 20:47 Addiction Medicine Routine Consulting Provider: Addiction Angelito Reason for consultation: opioid use disorder Consult to Care Team Routine Comment: Reason for consultation: opioid use disorder DS: Diagnosis Discharge Diagnosis (1) Abscess of skin or subcutaneous tissue: Status: Acute DS: Summary Hospital Course Hospital Course: from initial hpi: Chief Complaint: Upper extremity wound This is a 36-year-old male with pertinent history of IV drug use disorder, mood disorder who presents to the emergency department for evaluation of left upper extremity redness, warmth, draining wound.? Patient states he has been ongoing for the last 2 days.? It has been draining foul-smelling purulent discharge.? Admits fever and chills.? Endorses IV drug use at same site.? Last used heroin on the day of presentation.? Patient denies chest discomfort, palpitation, shortness of breath, abdominal pain, changes in urinary or bowel habits. ?In the emergency department, on weight to the CT scan it was noted that patient's wound bursted with copious amounts of foul-smelling serosanguineous purulent drainage. hospital course: Patient was admitted for sepsis due to purulent cellulitis with abscesses of left upper extremity in a patient uses IV drugs. He was given vancomycin, patient refused blood cultures. Patient underwent I&D on 04/16/2022. Symptoms improved and he will be discharged on 7 days Keflex and doxycycline. Patient also had opiate dependence with withdrawal and was treated with methadone and Dilaudid. He is no longer withdrawal. For his hepatitis-C he will follow up outpatient. Patient is feeling better and will be discharged home he should follow up with surgery in 1-2 weeks. Time Spent with Patient Time attestation: Total time managing care of this patient today ____ minutes. Discharge coordination time: Greater than 30 minutes Quality: Safe Use of Opioids Does Pt have an Active Cancer Diagnosis on the Problem List?: No Quality: Stroke Does the patient have a stroke diagnosis?: No Physical Exam Vital Signs: Vital Signs: Last Vital Signs Temp 99.1 F 04/18/22 07:50 Pulse 73 04/18/22 07:50 Resp 17 04/18/22 07:50 BP 120/72 04/18/22 07:50 Pulse Ox 97 04/18/22 07:50 O2 Del Method 04/18/22 07:50 BMI result Body Mass Index 36.9 Const: General: comfortable Nutritional Appearance: well nourished Orientation/consciousness: patient oriented x3 Limitations: no limitations Resp: Effort & Inspection: normal respiratory effort Skin: General skin exam: no rashes or lesions noted Neuro: General: patient oriented x3 Extrem: Other: Dressings changed to the left arm. No erythema remains. The lesion above the antecubital fossa is open and granulating. No evidence of new abscess or skin necrosis. Second incision and drainage site below the antecubital crease is clean and non fluctuant DS: Data Data Completed and Pending Labs on day of discharge: Laboratory Results - last 24 hr 04/17/22 04/18/22 16:52 06:09 Creatinine 0.68 Estim Creat Clear Calc 184.6 Estimated GFR > 60 Vancomycin Trough 14.6 Discharge Plan Discharge Anticipated Discharge Date/Time: 04/18/22 09:53 Patient Disposition: Home, Self-Care Discharge Diagnosis: abscess Referrals: [facility] [place]Provider Group] [facility] [place] [Provider Group] [facility] [Provider Group] [facility] [Primary Care Provider] - 1 Week Guillermo Mendez MD [Physician] - Discharge Medications: New cephalexin 500 mg capsule 500 mg PO QID 7 Days Qty: 28 0RF doxycycline hyclate 100 mg capsule 100 mg PO BID 7 Days Qty: 14 0RF Continued methadone 10 mg Tablet 40 mg PO DAILY Discharge Orders: Discharge Order (Routine); Ordered 04/18/22 Ordered By: García Henning Diet: Advance to usual diet Activity on Discharge: As tolerated Stand Alone Forms: Patient Portal Discharge page, Against Medical Advice Print Language: Namibian Activity Restrictions/Additional Instructions: Two antibiotics have been written for you and sent to your preferred pharmacy. These antibiotics will help treat the abscess on your left upper arm. Please take prescriptions as directed. Please complete course of antibiotics. Please return to the emergency department with fever, chills, worsening pain, worsening of abscess, or any other concerning emergent symptoms. 1st thing tomorrow morning call Dr. Mendez's office to set up outpatient treatment. This treatment is imperative to your health as increasing infection can lead to heart defects in . Care Plan Goals: recovery Health Concerns: abscess Plan of Treatment: 7 days joy hudson, will need daily dry sterile dressings to the left arm.? Diffuse discharge he should follow up in the office in approximately 1-2 weeks for wound check. Assessment: see above
--- NOTE | 2022-04-18 10:44 | MHC.RECOVRN ---
Pt provided with last dose letter. Denies questions or concerns for t/w.
--- NOTE | 2022-04-18 11:26 | MHC.CM.PN ---
PATIENT IS DC WITH OUTPATIENT SUBSTANCE MISUSE TREATMENT SERVICES ARRANGED RN AWARE OF PLAN
--- NOTE | 2022-04-18 11:40 | MHC.CM.PN ---
PATIENT GIVEN LONG-TERM LIST HE IS AWARE OF TODAY'S DC. HE HAS NO QUESTIONS RELATED TO HIS DC AND STATES THAT HE IS GOING OT MAKE CALLS TO ATTEMPT TO SECURE HOUSING
--- NOTE | 2022-04-18 13:59 | PC.NURSE ---
TLC removed from right IJ. Patient tolerated well. Tip intact upon removal. Pressure dressing applied to right neck, no blood noted upon discharge.
--- NOTE | 2022-04-24 05:51 | P.CDIR_ITS ---
Documented by User: Zehra Stone CCS, CDIS 04/24/22 06:02 Retrospective Query PHYSICIAN'S DOCUMENTATION REQUEST Date of Query: 04/24/22 0552 Patient Name: Guillermo Cook Admit Date: 04/12/22 Dear Doctor, A review of the medical record indicates additional documentation may be needed. Please review below and update the documentation accordingly. Clinical Indicators: Risk Factors/Clinical Indicators/Treatments Op note 04/16: Incision and drainage abscess left forearm Incision was made with an 11 blade into the abscess cavity, combination of old blood and abscess was drained. A pocket extending superiorly and medially identified. This collection was drained and packed. Abscess measuring approximately 1.5 cm in diameter just below the antecubital fossa tracking upward above the antecubital fossa. Please clarify the following: Depth of I & D: Incision and drainage of abscess left forearm Subcutaneous tissue and fascia Skin Other * Unable to determine Use of terms such as suspected, likely, concern for, or probable (associated with a specific diagnosis that is being evaluated, monitored, or treated as if it exists) are acceptable and can be coded in the inpatient setting, when documented at the time of discharge. Thank you, Zehra Stone CCS, CDIS Extension: [phone] Please use your independent medical judgment in providing your response. THIS QUERY IS PART OF THE PERMANENT MEDICAL RECORD Documented by User: Guillermo Mendez MD 05/01/22 11:49 Retrospective Query Provider Response: Other (Depth of incision and drainage is 2 cm)
== END 2022-04-18 14:35 | disposition home or self-care (01) | DRG 720 ==
LOC: HO.ED 18:03 → HO.EDOVER 20:55 → HO.S3 04-15 08:13
PROVIDERS: Emergency Medicine; Nurse Practitioner Family; Admitting Provider Student in an Organized Health Care Education/Training Program; Emergency Provider Emergency Medicine Emergency Medical Services; Visit Provider Internal Medicine
DX: A41.9 Sepsis, unspecified organism (principal); F33.3 Major depressive disorder, recurrent, severe with psychotic symptoms; L02.414 Cutaneous abscess of left upper limb; E78.5 Hyperlipidemia, unspecified; L03.114 Cellulitis of left upper limb; N40.0 Benign prostatic hyperplasia without lower urinary tract symptoms; F43.10 Post-traumatic stress disorder, unspecified; F11.23 Opioid dependence with withdrawal; F17.210 Nicotine dependence, cigarettes, uncomplicated; G89.29 Other chronic pain; B19.20 Unspecified viral hepatitis C without hepatic coma; E66.9 Obesity, unspecified; Z68.36 Body mass index [BMI] 36.0-36.9, adult; Z20.822 Contact with and (suspected) exposure to COVID-19; Z71.6 Tobacco abuse counseling; Z56.0 Unemployment, unspecified; Z91.013 Allergy to seafood; Z79.899 Other long term (current) drug therapy
CPT/HCPCS: 36415; 71045; 73201; 80048; 80202; 82565; 83880; 85025; 85027; 85652; 86140; 87635; 93970; 99285; J1170; J1885; J2270; J2543; J3370; Q9967

== ENCOUNTER 2022-04-20 10:19 | Emergency (ER) | payer MEDICAID, SELFPAY ==
--- NOTE | ~2022-04-20 | XR_ITS ---
EXAMINATION: XR KNEE, RIGHT CLINICAL INFORMATION: Right knee pain. COMPARISON: None TECHNIQUE: Four views of the right knee. FINDINGS: There is a linear band of sclerosis with associated lucency through the medial aspect of the tibial plateau contacting the medial cortex where there is mild periosteal reaction. Findings are consistent with a nondisplaced, incomplete stress fracture. No joint space narrowing or marginal osteophytes. No significant joint effusion. XR/XR knee RT 4V IMPRESSION: Nondisplaced, incomplete stress fracture through the medial aspect of the tibial plateau.
[2022-04-20 10:27] VITALS: BP 119/68; BP 186/105; PULSE 86; PULSE 94; RESP 18; TEMP 36.8; O2SAT 97; BMI 36.9
--- NOTE | 2022-04-20 10:32 | PC.NURSE ---
Pt presents with reports of atraumatic right knee pain x 3 days. No obvious deformity, +cms. PA to bedside for primary eval. Awaiting xray.
[2022-04-20 12:34] VITALS: BP 126/66; PULSE 74; RESP 18; TEMP 36.7; O2SAT 96
[2022-04-20] MEDS: oxyCODONE HCl Immed Release 5 MG TABLET 10 MG PO (12:55)
--- NOTE | 2022-04-20 12:56 | PC.NURSE ---
Pt medicated per JUL for right knee pain. Immobilizer intact. Crutches provided. Awaiting improvement in symptoms and dc home.
[2022-04-20 14:08] LABS: COVID-19 Test Negative (Negative); IDNOW Serial# BCCEAD1C
--- NOTE | 2022-04-20 14:09 | PC.NURSE ---
PT at bedside for assessment, pt reports positive pain relief from medication although continues to have difficulty moving right leg in immobilizer. Refusing STR placement unless girlfriend can go to. PA to bedside to discuss plan of care.
[2022-04-20 14:24] VITALS: BP 126/66; PULSE 74; O2SAT 96
--- NOTE | 2022-04-20 15:23 | MHC.CM.ED ---
Addendum entered by Nettie Mojica 04/20/22 15:27: Pt has HX substance abuse, IVDA and Hep C. CM questioning if this is impacting his decision to not go to rehab. Original Note: Pt is refusing STR. States he cannot leave his girlfriend, who is on the stretcher with him, alone. Pt is homeless and was at a local hotel, but he ran out of money. Pt is calling family for money for a hotel. Pt has crutches, an immoblizer and a walker. PT is recommending a wheelchair. Pt will have to obtain W/C himself. There are no wheelchairs available to give him. CM asked patient 3 times to reconsider STR, but patient refuses. Pt aware he will be discharged and will need to use his walker. Provider aware. Concerns if patient can ambulate, but understands that CM cannot force this patient to go to rehab. CM will follow.
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
== END 2022-04-20 16:52 | disposition home or self-care (01) ==
PROVIDERS: Physician Assistant Medical; Emergency Provider Student in an Organized Health Care Education/Training Program
DX: S82.144A Nondisplaced bicondylar fracture of right tibia, initial encounter for closed fracture (principal); X50.1XXA Overexertion from prolonged static or awkward postures, initial encounter; E78.5 Hyperlipidemia, unspecified; Z20.822 Contact with and (suspected) exposure to COVID-19; F11.20 Opioid dependence, uncomplicated; F17.210 Nicotine dependence, cigarettes, uncomplicated; Y93.9 Activity, unspecified; Y92.9 Unspecified place or not applicable; Y99.9 Unspecified external cause status
CPT/HCPCS: 73564; 87635; 97162; 99284

== ENCOUNTER → 2022-06-27 09:40 | Outpatient (REF) | payer MEDICAID, SELFPAY ==
--- NOTE | 2022-06-27 09:51 | ECG_ITS ---
Test Reason : Methadone for QT prolongation Blood Pressure : / mmHG Vent. Rate : 071 BPM Atrial Rate : 071 BPM P-R Int : 152 ms QRS Dur : 088 ms QT Int : 392 ms P-R-T Axes : 036 051 047 degrees QTc Int : 425 ms Normal sinus rhythm Normal ECG When compared with ECG of 11-SEP-2021 11:04, No significant change was found Referred By: Melanie Carmichael Electronically Signed By:JAYLA BARRETT
== END ==
LOC: HO.CARD 09:40
PROVIDERS: Visit Provider Family Medicine
DX: Z79.899 Other long term (current) drug therapy (principal)
CPT/HCPCS: 93005

== ENCOUNTER 2024-01-14 01:21 | Emergency (ER) | payer MEDICAID, SELFPAY ==
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
[2024-01-14 01:26] VITALS: BP 107/66; PULSE 90; O2SAT 96
[2024-01-14 01:31] VITALS: BMI 25.8
[2024-01-14 01:51] VITALS: BP 132/55; PULSE 88; RESP 15; TEMP 37.2; O2SAT 97
[2024-01-14 03:07] VITALS: BP 120/71; PULSE 88; RESP 14; O2SAT 99
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
[2024-01-14] MEDS: Doxycycline Monohydrate 100 MG CAPSULE PO (05:22)
[2024-01-14] MEDS: cephALEXin 500 MG CAPSULE PO (05:22)
[2024-01-14 06:35] VITALS: BP 109/45; PULSE 75; RESP 16; O2SAT 97
[2024-01-14] MEDS: Tobramycin Sulfate 0.3% Sol Op 5 ML BTL 2 DROP EYE-RIGHT (06:44)
[2024-01-14 07:01] VITALS: BP 109/45; PULSE 75; RESP 16; TEMP 36.7; O2SAT 97
== END 2024-01-14 07:02 | disposition home or self-care (01) ==
PROVIDERS: Emergency Provider Internal Medicine
DX: S31.821A Laceration without foreign body of left buttock, initial encounter (principal); S80.812A Abrasion, left lower leg, initial encounter; S80.811A Abrasion, right lower leg, initial encounter; X95.02XA Assault by paintball gun discharge, initial encounter; F14.10 Cocaine abuse, uncomplicated; F19.10 Other psychoactive substance abuse, uncomplicated; F11.20 Opioid dependence, uncomplicated; F33.2 Major depressive disorder, recurrent severe without psychotic features; F43.10 Post-traumatic stress disorder, unspecified; E78.5 Hyperlipidemia, unspecified; B19.20 Unspecified viral hepatitis C without hepatic coma; F17.210 Nicotine dependence, cigarettes, uncomplicated; Y93.9 Activity, unspecified; Y92.410 Unspecified street and highway as the place of occurrence of the external cause; Y99.9 Unspecified external cause status; Z79.899 Other long term (current) drug therapy
CPT/HCPCS: 12002; 70450; 70486; 72125; 73130; 99284

== ENCOUNTER 2024-01-22 14:59 | Emergency (ER) | payer MEDICAID, SELFPAY ==
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
--- NOTE | ~2024-01-22 | XR_ITS ---
EXAMINATION: XR FOOT, LEFT CLINICAL INFORMATION: Heel wound. Rule out osteomyelitis. COMPARISON: March 31, 2021. TECHNIQUE: AP, lateral, and oblique views of the left foot. FINDINGS: Suspect skin defect dorsolateral to the calcaneus, best appreciated on oblique view. Mild soft tissue swelling dorsal and caudal to the calcaneus. No evidence of significant subcutaneous air. No lytic or sclerotic bony lesion appreciated. No periosteal reaction is noted. No acute fracture or dislocation is seen. Bony mineralization appears preserved. The joint spaces appear maintained. XR/XR foot LT min 3V IMPRESSION: No plain film evidence of osteomyelitis. Additional findings as above. Electronically signed by: Vernon Velasco MD 01/23/2024 10:11 AM EDT RP
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
[2024-01-22 15:14] VITALS: BP 125/67; BP 126/77; PULSE 68; RESP 16; TEMP 37.1; O2SAT 97; O2SAT 99; BMI 25.9
--- NOTE | 2024-01-22 15:24 | ECG_ITS ---
Test Reason : DIZZINESS/FALL Blood Pressure : / mmHG Vent. Rate : 069 BPM Atrial Rate : 069 BPM P-R Int : 152 ms QRS Dur : 088 ms QT Int : 412 ms P-R-T Axes : 049 054 049 degrees QTc Int : 441 ms Normal sinus rhythm Normal ECG When compared with ECG of 27-JUN-2022 09:56, No significant change was found Referred By: Estephania Floyd Electronically Signed By:MAXIMINO CAMARILLO
[2024-01-22 15:35] LABS: Glucose, Whole Blood 118 mg/dL (60-115)
[2024-01-22 15:43] LABS: MANUAL DIFF FLAG NO
[2024-01-22 15:53] LABS: Basophils Percent Auto 0.4 % (0-2); Eosinophils Absolute Auto 0.3 X10*3/uL (0.0-0.4); Eosinophils Percent Auto 2.9 % (0-4); Hematocrit 35.2 % (42.0-52.0); Hemoglobin 11.8 g/dl (14.0-18.0); Imm Gran Abs Auto 0.04 X10*3/uL (0.00-0.03); Imm Gran Pct Auto 0.5 % (0.0-0.4); Lymphocytes Absolute Auto 1.8 X10*3/uL (1.2-4.9); Lymphocytes Percent Auto 21.1 % (20-40); Mean Corpuscular HGB Conc 33.5 g/dl (31.0-36.0); Mean Corpuscular Hemoglobin 28.1 pg (27.0-33.0); Mean Corpuscular Volume 83.8 fL (80.0-98.0); Mean Platelet Volume 9.7 fL (9.4-12.4); Monocytes Absolute Auto 0.9 X10*3/uL (0.1-1.2); Monocytes Percent Auto 10.5 % (2-11); Neutrophils Absolute Auto 5.5 x10*3/uL (2.0-8.3); Neutrophils Percent Auto 64.6 % (45-73); Platelet Count 226 X10*3/uL (160-400); Red Cell Distribution Width 13.2 % (11.0-16.0); White Blood Count 8.5 X10*3/uL (4.8-10.8)
[2024-01-22 16:25] LABS: Influenza A PCR NEGATIVE (Negative); Influenza B PCR NEGATIVE (Negative); Resp Syncy Virus RNA Qual PCR NEGATIVE (Negative); SARS COV2 PCR INHOUSE NEGATIVE (Negative)
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
[2024-01-22 17:55] LABS: Alanine Aminotransferase 44 U/L (0-40); Albumin Level 3.7 g/dL (3.5-5.0); Alkaline Phosphatase 67 U/L (39-117); Anion Gap 11 (12-20); Aspartate Amino Transferase 40 U/L (5-37); Bilirubin Total 0.2 mg/dL (0.0-1.0); Blood Urea Nitrogen 24 mg/dL (9-16); Calcium 8.8 mg/dL (8.4-10.2); Carbon Dioxide 28 mmol/L (22-29); Chloride 108 mmol/L (96-108); Creatinine Clr Calc Pharmacy 123.9; Estimated Glomerular Filt Rate > 60; Ethanol < 10 mg/dL; Glucose Random 102 mg/dL (60-115); Magnesium 2.4 mg/dL (1.6-2.6); Potassium 4.1 mmol/L (3.3-5.1); Sodium 143 mmol/L (135-145); Total Protein 6.2 g/dL (6.5-8.0)
[2024-01-22 17:58] LABS: Troponin-I High Sensitivity < 2.7 ng/L (<3.5-35.0)
[2024-01-22 18:43] VITALS: TEMP 36.8
[2024-01-22 18:49] VITALS: BP 122/72; PULSE 56; RESP 16; TEMP 36.8; O2SAT 94
--- NOTE | 2024-01-22 23:00 | PC.NURSE ---
This field underwriter assumed care of this Pt at 1900. Pt appears to be sleeping, equal, non labored respirations. No apparent distress. Plan of care on going.
[2024-01-23 00:30] VITALS: BP 112/64; PULSE 62; RESP 20; TEMP 36.9; O2SAT 96
--- NOTE | 2024-01-23 03:00 | PC.NURSE ---
Pt appears to be sleeping, equal, non labored respirations. No apparent distress. Plan of care on going.
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
[2024-01-23 06:00] VITALS: BP 118/64; PULSE 54; RESP 12; TEMP 36.6; O2SAT 99
[2024-01-23 06:19] LABS: Appearance Urine Clear; Color Urine Yellow; Glucose Urine UA Negative (Negative); Leukocyte Esterase Urine Negative (Negative); Nitrite Urine Negative (Negative); PH 6.5 (5.0-9.0); Specific Gravity - Urine 1.025 (1.005-1.025); Urine Blood Negative (Negative); Urine Ketones Negative (Negative); Urine Protein Trace mg/dL (Neg-Trace)
[2024-01-23 06:31] LABS: Amphetamine Screen Urine Not Detected (Not Detect); Barbiturates, Urine Not Detected (Not Detect); Benzodiazepines Screen Urine Not Detected (Not Detect); Buprenorphine Scr Not Detected (Not Detect); Cannabinoid Screen Urine Not Detected (Not Detect); Cocaine Screen Urine POSITIVE (Not Detect); Fentanyl, urine POSITIVE (Not Detect); Methadone Screen, Urine Positive (Not Detect); Opiate Screen Urine POSITIVE (Not Detect); Oxycodone Screen Urine Not Detected (Not Detect); Phencyclidine Screen Urine Not Detected (Not Detect)
--- NOTE | 2024-01-23 08:43 | HE.PHANOTE ---
RE: METHADONE DOSING Last methadone 150 mg dose was given on 01/22/2024 @1025 at [facility] [phone] per Edda.
[2024-01-23] MEDS: cephALEXin 500 MG CAPSULE PO (09:01)
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
--- NOTE | 2024-01-23 09:25 | MHC.EDTECH ---
TOLU TO RYAN @ THIS TIME
[2024-01-23] MEDS: methADONE HCl 20 MG/2 ML ORAL.CONC 150 MG PO (09:36)
--- NOTE | 2024-01-23 09:54 | PC.NURSE ---
pt changed into [facility] [place]
--- NOTE | 2024-01-23 13:37 | MHC.RECOVRN ---
Met with patient in ED13H at about 13:00. Pt calm and cooperative during our 1:1 interaction, reported daily heroin use a couple bundles per day as well as daily crack cocaine use depends on how much money I got to spend . Pt denies EtOH use. Pt reported I want my methadone increased because I keep using on top of it . Pt treatment and support-seeking - I'm going to one of these days if I keep using . Pt detox-seeking. Referral packet to be sent to [facility] for review.
--- NOTE | 2024-01-23 13:56 | MHC.RECOVRN ---
Referral packet has been received by [facility] and is undergoing review.
--- NOTE | 2024-01-23 15:13 | PHA.MEDREC ---
Addendum entered by Stanislaw Becerra RPh 01/23/24 15:24: Med rec was reviewed by [facility]. See note RE: METHADONE DOSING for date of last dose. Original Note: Pharmacy Consult ? Medication Reconciliation Pharmacy has completed the medication reconciliation. Spoke to patient to confirm med list. Patient states he takes Methadone 150 mg daily from [facility] and last dose was yesterday 01/23/24.
--- NOTE | 2024-01-23 16:39 | MHC.RECOVRN ---
Pt got accepted at [facility] for detox. They are expecting him tonight at 20:00 for his admission. CARE Team is to call a Lyft ride for him at 19:30.
[2024-01-23 19:13] VITALS: BP 122/60; PULSE 62; RESP 18; TEMP 36.9; O2SAT 95
--- NOTE | 2024-01-23 19:14 | PC.NURSE ---
last dose letter printed
--- NOTE | 2024-01-23 19:24 | PC.NURSE ---
care team booked daniel for pt d/c, pt assisted to decon to get items, pt understands d/c instructions.
[2024-01-23 19:25] VITALS: BP 122/60; PULSE 62; RESP 18; TEMP 36.9; O2SAT 95
== END 2024-01-23 19:26 | disposition other institution (70) ==
PROVIDERS: Physician Assistant Medical; Emergency Provider Emergency Medicine
DX: T40.1X1A Poisoning by heroin, accidental (unintentional), initial encounter (principal); Y92.89 Other specified places as the place of occurrence of the external cause; R42 Dizziness and giddiness; M79.672 Pain in left foot; R51.9 Headache, unspecified; M25.532 Pain in left wrist; M54.2 Cervicalgia; R40.4 Transient alteration of awareness; F17.210 Nicotine dependence, cigarettes, uncomplicated; Z79.899 Other long term (current) drug therapy; Z03.818 Encounter for observation for suspected exposure to other biological agents ruled out
CPT/HCPCS: 0241U; 36415; 70450; 72125; 73630; 80053; 80307; 81003; 82947; 83735; 84484; 85025; 85610; 87040; 93005; 99285

== ENCOUNTER → 2024-01-22 15:50 | Outpatient (BNV) | payer MEDICAID, SELFPAY | PROVIDERS: Emergency Provider Emergency Medicine; Visit Provider Surgery | DX: L02.91 Cutaneous abscess, unspecified (principal) | CPT/HCPCS: 99499 ==

== ENCOUNTER 2024-04-29 23:57 | Emergency (ER) | payer MEDICAID, SELFPAY ==
--- NOTE | ~2024-04-29 | XR_ITS ---
EXAMINATION: XR KNEE, LEFT CLINICAL INFORMATION: pain COMPARISON: None available. TECHNIQUE: 2 views of the left knee. FINDINGS: No fracture or joint effusion. Alignment is anatomic. Joint spaces are maintained. No abnormal soft tissue calcification. XR/XR knee LT 2V IMPRESSION: No significant abnormality identified. Electronically signed by: Radhames Rubio MD 04/30/2024 02:11 AM [facility] [place]
[2024-04-30 00:04] VITALS: BP 104/86; PULSE 84; RESP 20; TEMP 36.6; O2SAT 96; BMI 29.5
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
[2024-04-30 04:16] VITALS: BP 134/66; PULSE 65; RESP 18; TEMP 36.8; O2SAT 94
--- NOTE | 2024-04-30 04:22 | PC.NURSE ---
Attempted to wake pt to medicate and discharge, pt arousable but falls right back to sleep. Unable to medicate or discharge at this time. aware.
[2024-04-30] MEDS: Doxycycline Monohydrate 100 MG CAPSULE PO (05:02)
[2024-04-30] MEDS: Ibuprofen 600 MG TABLET PO (05:02)
[2024-04-30] MEDS: cephALEXin 500 MG CAPSULE PO (05:02)
--- NOTE | 2024-04-30 05:27 | PC.NURSE ---
Pt not answering questions, refused to sign discharge paperwork despite it being reviewed with him.
[2024-04-30 05:29] VITALS: BP 114/75; PULSE 75; RESP 18; TEMP 36.8; O2SAT 98
== END 2024-04-30 05:00 | disposition home or self-care (01) ==
PROVIDERS: Emergency Provider Internal Medicine
DX: L03.116 Cellulitis of left lower limb (principal); M25.562 Pain in left knee; F17.210 Nicotine dependence, cigarettes, uncomplicated
CPT/HCPCS: 73560; 99283

== ENCOUNTER 2024-06-03 08:15 | Emergency (ER) | payer MEDICAID, SELFPAY ==
--- NOTE | ~2024-06-03 | XR_ITS ---
EXAMINATION: XR FOOT, LEFT CLINICAL INFORMATION: pain, concern for osteo COMPARISON: 01/23/2024. TECHNIQUE: AP, lateral, and oblique views of the left foot. FINDINGS: Normal bony mineralization. No fracture, dislocation, or suspicious bone lesion. No malalignment. No focal osteopenia, periostitis, or permeative bone changes to suggest radiographic changes of osteomyelitis. Early degenerative changes in the intertarsal joints and first MTP joint. There is mildly prominent soft tissue surrounding the heel. No gross subcutaneous gas, or focal soft tissue defect evident radiographically. XR/XR foot LT min 3V IMPRESSION: 1. No acute findings left foot. No radiographic evidence of osteomyelitis. Electronically signed by: Isaac Hughes MD 06/03/2024 10:20 AM [facility]
--- NOTE | ~2024-06-03 | US_ITS ---
EXAMINATION: US TRIPLEX LOWER EXTREMITY, LEFT CLINICAL INFORMATION: Left calf swelling and pain, IVDA. COMPARISON: 04/12/2022. TECHNIQUE: Color-flow triplex imaging with spectral analysis and compression Doppler were performed on the left lower extremity. FINDINGS: Respiratory variation, normal compression and augmented flow are noted throughout the left lower extremity. The visualized common femoral vein, superficial femoral vein, profunda femoral vein, popliteal vein and midcalf peroneal and posterior tibial venous segments show no evidence of deep venous thrombosis. There is no Prince's cyst. Incidental joint effusion noted in the posterior left knee. Mildly prominent reactive appearing lymph node in the left proximal thigh measuring 2.3 x 0.9 x 1.8 cm. US/US venous duplex LE LT IMPRESSION: No evidence of deep venous thrombosis involving the left lower extremity. Ancillary findings as detailed. Electronically signed by: Isaac Hughes MD 06/03/2024 10:50 AM WADE
[2024-06-03 08:43] VITALS: BP 125/65; BP 132/84; PULSE 56; PULSE 72; RESP 18; TEMP 36.7; O2SAT 94; O2SAT 96; BMI 24.4
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
--- NOTE | 2024-06-03 08:53 | ECG_ITS ---
Test Reason : qtc elevation Blood Pressure : */* mmHG Vent. Rate : 52 BPM Atrial Rate : 52 BPM P-R Int : 162 ms QRS Dur : 94 ms QT Int : 476 ms P-R-T Axes : 54 71 75 degrees QTcB Int : 442 ms Sinus bradycardia Otherwise normal ECG When compared with ECG of 22-Jan-2024 15:21, No significant change was found Referred By: Estephania Floyd Electronically Signed By: JAYLA BARRETT
[2024-06-03 09:33] LABS: MANUAL DIFF FLAG NO
[2024-06-03] MEDS: HYDROmorphone HCl 1 MG/ML SYRINGE IVPUSH (09:33)
[2024-06-03 09:36] LABS: Basophils Percent Auto 0.5 % (0-2); Eosinophils Absolute Auto 0.2 X10*3/uL (0.0-0.4); Eosinophils Percent Auto 3.1 % (0-4); Hemoglobin 12.6 g/dl (14.0-18.0); Imm Gran Abs Auto 0.02 X10*3/uL (0.00-0.03); Imm Gran Pct Auto 0.3 % (0.0-0.4); Lymphocytes Absolute Auto 1.6 X10*3/uL (1.2-4.9); Lymphocytes Percent Auto 24.3 % (20-40); Mean Corpuscular HGB Conc 32.3 g/dl (31.0-36.0); Mean Corpuscular Hemoglobin 26.8 pg (27.0-33.0); Mean Corpuscular Volume 82.8 fL (80.0-98.0); Mean Platelet Volume 9.2 fL (9.4-12.4); Monocytes Absolute Auto 0.8 X10*3/uL (0.1-1.2); Monocytes Percent Auto 12.2 % (2-11); Neutrophils Absolute Auto 3.8 x10*3/uL (2.0-8.3); Neutrophils Percent Auto 59.6 % (45-73); Platelet Count 254 X10*3/uL (160-400); Red Blood Count 4.71 X10*6/uL (4.60-5.80); Red Cell Distribution Width 14.5 % (11.0-16.0); White Blood Count 6.5 X10*3/uL (4.8-10.8)
[2024-06-03 09:41] LABS: Prothrombin Time 11.1 SEC (10.9-12.4)
[2024-06-03 09:44] LABS: Partial Thromboplastin Time 33.8 SEC (26.0-36.8)
[2024-06-03 09:56] LABS: Alanine Aminotransferase 35 U/L (0-40); Albumin Level 3.8 g/dL (3.5-5.0); Anion Gap 11 (12-20); Aspartate Amino Transferase 43 U/L (5-37); Bilirubin Total 0.2 mg/dL (0.0-1.0); Blood Urea Nitrogen 14 mg/dL (9-16); C Reactive Protein 0.49 mg/dL (< or = 0.50); Carbon Dioxide 26 mmol/L (22-29); Chloride 108 mmol/L (96-108); Creatinine Clr Calc Pharmacy 143.7; Estimated Glomerular Filt Rate > 60; Glucose Random 131 mg/dL (60-115); Magnesium 2.1 mg/dL (1.6-2.6); Potassium 3.9 mmol/L (3.3-5.1); Sodium 141 mmol/L (135-145); Total Protein 6.9 g/dL (6.5-8.0)
[2024-06-03 10:13] LABS: Erythrocyte Sedimentation Rate 7 MM/HR (0-15)
[2024-06-03 10:49] LABS: Lactic Acid 0.9 mmol/L (0.5-2.0)
[2024-06-03 11:03] LABS: Alkaline Phosphatase 85 U/L (39-117)
[2024-06-03] MEDS: Piperacillin Sodium/Tazobactam 3.375 GM in 0.9 % Sodium Chloride 50 ML IV (11:06)
[2024-06-03] MEDS: vancomycin/NS 2,000 MG/500 ML PLAST..BAG 250 MG IV (11:15)
[2024-06-03 14:07] VITALS: BP 108/56; PULSE 58; RESP 18; TEMP 36.6; O2SAT 98
--- NOTE | 2024-06-03 14:08 | PC.NURSE ---
van voucher completed for ride home, inst reviewed
== END 2024-06-03 14:08 | disposition home or self-care (01) ==
PROVIDERS: Physician Assistant Medical; Emergency Provider Student in an Organized Health Care Education/Training Program
DX: L03.116 Cellulitis of left lower limb (principal); M79.672 Pain in left foot; R00.1 Bradycardia, unspecified; R60.0 Localized edema; F17.210 Nicotine dependence, cigarettes, uncomplicated; F11.90 Opioid use, unspecified, uncomplicated; Z79.899 Other long term (current) drug therapy
CPT/HCPCS: 36415; 73630; 80053; 83605; 83735; 85025; 85610; 85652; 85730; 86140; 87040; 93005; 93971; 96365; 96375; 99283; 99284; J1171; J2543; J3370

== ENCOUNTER → 2024-06-03 08:53 | Outpatient (BNV) | payer MEDICAID, SELFPAY | PROVIDERS: Emergency Provider Student in an Organized Health Care Education/Training Program; Visit Provider Radiology Diagnostic Radiology | DX: M79.89 Other specified soft tissue disorders (principal); F19.10 Other psychoactive substance abuse, uncomplicated; M79.672 Pain in left foot | CPT/HCPCS: 73630; 93971 ==

== ENCOUNTER → 2024-06-03 08:53 | Outpatient (BNV) | payer MEDICAID, SELFPAY | PROVIDERS: Emergency Provider Student in an Organized Health Care Education/Training Program; Visit Provider Internal Medicine | DX: R00.1 Bradycardia, unspecified (principal) | CPT/HCPCS: 93010 ==

== ENCOUNTER 2024-06-05 02:00 | Emergency (ER) | payer MEDICAID, SELFPAY ==
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
[2024-06-05 02:09] VITALS: BP 135/86; PULSE 83; RESP 20; TEMP 37; O2SAT 99; BMI 23.6
[2024-06-05 03:08] LABS: MANUAL DIFF FLAG NO
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
[2024-06-05 03:12] LABS: Basophils Percent Auto 0.3 % (0-2); Eosinophils Absolute Auto 0.1 X10*3/uL (0.0-0.4); Eosinophils Percent Auto 1.1 % (0-4); Hematocrit 37.5 % (42.0-52.0); Hemoglobin 12.4 g/dl (14.0-18.0); Imm Gran Abs Auto 0.01 X10*3/uL (0.00-0.03); Imm Gran Pct Auto 0.1 % (0.0-0.4); Lymphocytes Percent Auto 27.6 % (20-40); Mean Corpuscular HGB Conc 33.1 g/dl (31.0-36.0); Mean Corpuscular Hemoglobin 27.1 pg (27.0-33.0); Mean Corpuscular Volume 81.9 fL (80.0-98.0); Mean Platelet Volume 9.4 fL (9.4-12.4); Monocytes Absolute Auto 0.7 X10*3/uL (0.1-1.2); Monocytes Percent Auto 9.6 % (2-11); Neutrophils Absolute Auto 4.4 x10*3/uL (2.0-8.3); Neutrophils Percent Auto 61.3 % (45-73); Platelet Count 221 X10*3/uL (160-400); Red Blood Count 4.58 X10*6/uL (4.60-5.80); Red Cell Distribution Width 14.5 % (11.0-16.0); White Blood Count 7.2 X10*3/uL (4.8-10.8)
[2024-06-05 03:23] LABS: Alanine Aminotransferase 39 U/L (0-40); Anion Gap 13 (12-20); Aspartate Amino Transferase 40 U/L (5-37); Bilirubin Total 0.3 mg/dL (0.0-1.0); Blood Urea Nitrogen 18 mg/dL (9-16); Calcium 9.4 mg/dL (8.4-10.2); Carbon Dioxide 25 mmol/L (22-29); Chloride 110 mmol/L (96-108); Creatinine Clr Calc Pharmacy 125.5; Estimated Glomerular Filt Rate > 60; Glucose Random 138 mg/dL (60-115); Potassium 3.6 mmol/L (3.3-5.1); Sodium 144 mmol/L (135-145)
[2024-06-05] MEDS: Ibuprofen 600 MG TABLET PO (03:24)
--- OUTSIDE RECORDS SUMMARY | 2024-06-05 03:25 | XMS_ITS | Encounter Summary ---
Author Organization [employer] Address [address] [place] [address] [address] [place] [address] Care Team Providers Care Bobj Developer Name Role Phone Rhonda Prince NP Primary Care Provider UnavailAmandeep Phan Primary Care Provider Unavail Eulalia Pedraza Primary Care Provider [phone] Reason for Visit * Reason Onset Date Comments Appointment Request 05/11/2022 Encounter Details Date Type Department Care Team ([facility] st Contact Info) Description 05/11/2022 Telephone [facility] [address] [place] [address] Rhonda Prince NP Appointment Request Social History Tobacco Use Types Packs/Day Years Used Date Smoking Tobacco: Never Assessed Sex and Gender Information Value Date Recorded Sex Assigned at Male 03/05/2022 10:14 AM EDT Legal Sex Male 10:14 AM EDT Gender Identity Male 03/05/2022 10:14 AM EDT Sexual Orientation Straight 03/05/2022 10 :14 AM EDT documented as of this encounter Miscellaneous Notes * Telephone Encounter - Mitch Conroy - 05/11/2022 12:08 PM EST Tc from pt requesting ( TP ) Appt with a new PCP Pt last seen on 10/10/[address] Prince Please contact pt at [phone] documented in this encounter Plan of Treatment Not on file documented as of this encounter Visit Diagnoses Not on filedocumented in this encounter Care Teams Bobj Developer Relationship Specialty Start Date End Date Rhonda Prince NP PCP - General Family Medicine 03/15/21 07/01/22 Amandeep Buchanan AGNP PCP - General Family Medicine 07/02/22 01/13/23 Eulalia Solorio ANP [address] [place] [id number] PCP - General Family Medicine 01/14/23 03/09/24 documented as of this encounter
--- OUTSIDE RECORDS SUMMARY | 2024-06-05 03:25 | XMS_ITS | Clinical Summary ---
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 Phone Unavailable Primary Care Provider Unavailabl e Allergies Active Allergy Reactions Criticality Noted Date Comments Shellfish Allergy 09/25/2021 Other reaction(s): diarrhea, Shellfish, throat swelling, hives Active Problems Problem Noted Date Diagnosed Date Mixed hyperlipidemia 10/09/2022 Opioid abuse, in remission 10/09/2022 Vitamin D deficiency 06/17/2018 Posttraumatic stress disorder 02/10/2016 Allergic rhinitis 07/14/2015 Chronic pain after traumatic injury 07/14/2015 Constipation 07/14/2015 Mild intermittent asthma 07/14/2015 Viral hepatitis C 07/14/2015 Weakness of left lower extremity 07/14/2015 Encounters Date Type Department Care Team Description 06/03/2024 Orders Only GENERIC EXTERNAL DATA DEPARTMENT Provider, Generic External Data 04/30/2024 Orders Only [facility] External Provider, [facility] 04/20/2024 Patient Outreach [facility] [address] [place] [phone] Conor Archibald MD Care Coordination (CM/CHW outreach) 04/14/2024 Patient Outreach [address] [address] Eulalia Solorio ANP Care Coordination (CM/CHW Outreach) 04/09/2024 Patient Outreach [address] [address] Conor Archibald MD Care Coordination (CM/CHW outreach) 04/01/2024 Patient Outreach [address] [address] Conor Archibald MD Care Coordination (CM/CHW outreach) 03/25/2024 Patient Outreach [address] [address] Conor Archibald MD Care Coordination (CM/CHW outreach) 03/20/2024 Patient Outreach [address] [address] Conor Archibald MD Care Coordination (CM/CHW outreach) 03/19/[address] [address] Consuelo Martin RN Care Management ([facility]- chart review) 03/10/[address] [address] Bing Haq, [facility] Follow-up 03/06/2024 Patient Outreach [address] [address] Eulalia Solorio ANP Care Coordination ([facility]/W Roshan Martin, TC #3 outreach_closed ) from Last 3 Months Immunizations Name Administration Dates Next Due DTP 02/27/1985,1984,1984 DTaP 10/05/1988,01/14/1986 Hep A, Adult 02/19/2013,08/14/2011 Hep B, Adolescent or Pediatric 03/11/1997,1996,10/02/1996 IPV 10/05/1988, 6,02/27/1985,10/30,1984 Influenza injectable quadriv alent preservative free 02/02/2019 Influenza, IIV3, injectable 04/20/2014 Influenza, Split (incl. manuel fied surface antigen) 02/19/2013,05/22/2012 MMR 12/10/1989,07/08/1986 Moderna Covid-19 Vaccine 12+ 03/24/2022 Pneumococcal Polysaccharide PPSV23 03/01/2011 TD (adult), 2 Lf tetanus tox oid, preservative free, adsorbed 07/05/2008,07/14/1998 Td (adult), 5 Lf tetanus tox oid, preservative free, adsorbed 08/14/2016 Tdap 09/10/2021,04/20/2014 Social History Tobacco Use Types Packs/Day Years Used Date Smoking Tobacco: Every Day Cigarettes Smokeless Tobacco: Never Tobacco Cessation:Ready to Q uit: Not Asked; Counseling Given: Not Answered Sex and Gender Information Value Date Recorded Sex Assigned at Male 03/05/2022 10:14 AM EDT Legal Sex Male 10:14 AM EDT Gender Identity Male 03/05/2022 10:14 AM EDT Sexual Orientation Straight 03/05/2022 10 :14 AM EDT Last Filed Vital Signs Vital Sign Reading Time Taken Comments Blood Pressure 112/70 12/25/2021 12:08 AM EDT Pulse 76 12/25/2021 12:08 AM EDT Temperature - - Respiratory Rate - - Oxygen Saturation - - Inhaled Oxygen Concentration - - Weight 129 kg (284 lb 9.5 oz) 12/25/2021 12:08 A M EDT Height 175.3 cm (5' 9 ) 12/25/2021 12:08 AM EDT Body Mass Index 42.03 12/25/2021 12:08 AM EDT Plan of Treatment Health Maintenance Due Date Last Done Comments Dental Oral Exam 1984 Dental Prophylaxis 1984 Dental X-Ray: Full Mouth 1984 Depression Screening 1984 SDOH Screening 1984 Alcohol/Substance Use Screening 1996 Family Planning (PISQ) 1999 Pneumococcal Vaccine: Pediatrics (0 to 5 Years) and At-Risk Patients (6 to 49) Years) (2 of 2 - PCV) 03/01/2012 03/01/2011 Tobacco Screening 09/15/2023 09/14/2022 Dental X-Ray: Bitewings 09/16/2023 09/14/2022 COVID-19 Vaccine (2 - season) 2024 03/24/2022 Influenza Vaccine (#1) 2024 9, 04/20/2014, 02/19/2013, Additional history exists Lipid Panel 05/29/2026 05/29/2021 DTaP/Tdap/Td Vaccines (9 - Td or Tdap) 09/11/2031 09/10/2021, 08/14/2016, 04/20/2014, Additional history exists Zoster Vaccines (1 of 2) 2034 RSV Patients and Patients Aged 60 years or older (1 - 1-dose 75+ series) 2059 IPV Vaccines Completed 10/05/1988, 01/04, 02/27/1985, Additional history exists Hepatitis B Vaccines Completed 03/11/1997, 11/19/1996, 10/02/1996 Hepatitis A Vaccines Completed 02/19/2013, 08/14/19 12 HIV Screening Completed 05/29/2021 HIB Vaccines Aged Out No longer eligi ble based on patient's age to complete this topic HPV Vaccines Aged Out No longer eligi ble based on patient's age to complete this topic Meningococcal Vaccine Aged Out No ludivina alan eligible based on patient's age to complete this topic RSV under 20 months Aged Out No longe r eligible based on patient's age to complete this topic Rotavirus Vaccines Aged Out No longer eligible based on patient's age to complete this topic Procedures Procedure Name Priority Date/Time Associated Diagnosis Comments BLOOD CULTURE (SECOND) Routine 10:44 AM EST LACTIC ACID Routine 06/03/2024 10:22 AM EST BLOOD CULTURE (FIRST) Routine 06/03/2024 10:22 AM EST C-REACTIVE PROTEIN Routine 06/03/2024 9: 27 AM EST MAGNESIUM Routine 06/03/2024 9:27 AM EST COMPREHENSIVE METABOLIC PANEL Routine 06/03/2024 9:27 AM EST CBC WITH AUTO DIFFERENTIAL Routine 06/03/2024 9:27 AM EST SED RATE BY MODIFIED WESTERGREN Routine 06/03/2024 9:26 AM EST APTT Routine 06/03/2024 9:26 AM EST PROTHROMBIN TIME-INR Routine 06/03/2024 9:26 AM EST US VENOUS DUPLEX LE LT Routine 8:53 AM EST XR FOOT 3+ VIEWS LEFT Routine 06/03/2024 8:53 AM EST XR KNEE 1-2 VIEWS LEFT Routine 4 1:28 AM EST BITEWING - SINGLE RADIOGRAPHIC IMAGE Routine 09/14/2022 11:30 AM EDT Dental caries Dental abscess HIV 1/2 ANTIGEN/ANTIBODY, FOURTH GENERATION W/RFL Routine 05/29/2021 3:00 PM EST LIPID PANEL, STANDARD Routine 05/29/2021 3:00 PM EST from Last 3 Months or Most Recently Relevant to Health Maintenance Results * Lactic Acid (06/03/2024 10:22 AM EST) [facility] Lactic Acid 0.9 0.5 - 2.0 mmol/L [facility] 06/03/2024 10:2 2 AM EST 06/03/2024 10:29 AM EST us Generic External Data Provider LAB BLOOD ORDERAB LES Final Result [facility] [address] [place] [phone] * (ABNORMAL) CBC auto differential (06/03/2024 9:27 AM EST) Pathologist [facility] White Blood Count 6.5 4.8 - 10.8 X10*3/uL [facility] Red Blood Count 4.71 4.60 - 5.80 X10*6/uL [facility] Hemoglobin 12.6(L) 14.0 - 18.0 g/dl [facility] Hematocrit 39.0(L) 42.0 - 52.0 % [facility] Mean Corpuscular Volume 82.8 80.0 - 98.0 fL [facility] Mean Corpuscular Hemoglobin 26.8(L) 27.0 - 33.0 pg [facility] Mean Corpuscular HGB Conc 32.3 31.0 - 36.0 g/dl [facility] Red Cell Distribution Width 14.5 11.0 - 16.0 % [facility] Platelet Count 254 160 - 400 X10*3/uL [facility] Mean Platelet Volume 9.2(L) 9.4 - 12.4 fL [facility] Neutrophils Percent Auto 59.6 45 - 73 % [facility] Imm Gran Pct Auto 0.3 0.0 - 0.4 % [facility] Lymphocytes Percent Auto 24.3 20 - 40 % [facility] Monocytes Percent Auto 12.2(H) 2 - 11 % [facility] Eosinophils Percent Auto 3.1 0 - 4 % [facility] Basophils Percent Auto 0.5 0 - 2 % [facility] NRBC Pct Auto 0.0 0.0 - 0.2 /100WBC [facility] Neutrophils Absolute Auto 3.8 2.0 - 8.3 x10*3/uL [facility] Imm Gran Abs Auto 0.02 0.00 - 0.03 X10*3/uL [facility] Lymphocytes Absolute Auto 1.6 1.2 - 4.9 X10*3/uL [facility] Monocytes Absolute Auto 0.8 0.1 - 1.2 X10*3/uL [facility] Eosinophils Absolute Auto 0.2 0.0 - 0.4 X10*3/uL [facility] Basophils Absolute Auto 0.0 0.0 - 0.2 X10*3/uL [facility] NRBC Abs Auto 0.000 0.0 - 0.012 X10*3/uL [facility] 06/03/2024 9:27 AM EST 06/03/2024 9:32 AM EST us Generic External Data Provider LAB BLOOD ORDERAB LES Final Result [facility] [address] [place] [phone] * C-reactive Protein (06/03/2024 9:27 AM EST) C Reactive Protein 0.49 < or = 0.50 mg/dL [facility] 06/03/2024 9:27 AM EST 06/03/2024 9:32 AM EST Generic External Data Provider LAB BLOOD ORDERAB LES Final Result Performing Organization Address [facility] Co de Phone Number [facility] [address] [place] [phone] * Magnesium (06/03/2024 9:27 AM EST) Pathologist [facility] Magnesium 2.1 1.6 - 2.6 mg/dL [facility] 06/03/2024 9:27 AM EST 06/03/2024 9:32 AM EST Generic External Data Provider LAB BLOOD ORDERAB LES Final Result Performing Organization Address [facility] de Phone Number [facility] [address] [place] [phone] * (ABNORMAL) Comprehensive Metabolic Panel (06/03/2024 9:27 AM EST) Pathologist [facility] Sodium 141 135 - 145 mmol/L [facility] Potassium 3.9 3.3 - 5.1 mmol/L [facility] Comment:Slight Hemolysis.Int erpret result with caution. Chloride 108 96 - 108 mmol/L [facility] Carbon Dioxide 26 22 - 29 mmol/L [facility] Anion Gap 11(L) 12 - 20 [facility] Urea Nitrogen (BUN) 14 9 - 16 mg/dL [facility] Creatinine, Serum 0.69 0.5 - 1.4 mg/dL [facility] Creatinine Clr Calc Pharmacy 143.7 [facility] Comment:eGFR (calculated fro m the MDRD study equation) and eCrCl(calculated from the Cockcroft-Gault equation) are based ondifferent parameters and may not yield comparable results.If eCrCl result is absurd, please check patient'sheight/weight. Estimated Glomerular Filt Rate >60 [facility] Comment:Chronic Kidney Disea se: Estimated GFR < 60 mL/min/1.03g1Zahfud Kidney Disease: Estimated GFR < 15 mL/min/1.73m2 Glucose 131(H) 60 - 115 mg/dL [facility] Calcium 9.0 8.4 - 10.2 mg/dL [facility] Bilirubin, Total 0.2 0.0 - 1.0 mg/dL [facility] Aspartate Amino Transferase 43(H) 5 - 37 U/L [facility] Comment:Slight Hemolysis.Int erpret result with caution. Alanine Aminotransferase 35 0 - 40 U/L [facility] Total Protein 6.9 6.5 - 8.0 g/dL [facility] Albumin Level 3.8 3.5 - 5.0 g/dL [facility] Alkaline Phosphatase 85 39 - 117 U/L [facility] 06/03/2024 9:27 AM EST 06/03/2024 9:32 AM EST us Generic External Data Provider LAB BLOOD ORDERAB LES Final Result Performing Organization Address City/[facility]/ZIP Co de Phone Number [facility] [address] [place] [phone] * Partial Thromboplastin Time, Activated (APTT) (06/03/2024 9:26 AM EST) Partial Thromboplastin Time 33.8 26.0 - 36.8 SEC [facility] Comment:For information rega rding the monitoring of direct thrombininhibitors, please refer to Pharmacy. 06/03/2024 9:26 AM EST 06/03/2024 9:32 AM EST us Generic External Data Provider LAB BLOOD ORDERAB LES Final Result Performing Organization Address [facility]/ZIP Co de Phone Number [facility] [address] [place] [phone] * Sed Rate by Praveena Laird (06/03/2024 9:26 AM EST) Erythrocyte Sedimentation Rate 7 0 - 15 MM/HR [facility] Comment:Patients with polycy themia and many hemoglobin abnormalitiesmay have depressed sed rates whereas patients with anemiamay have elevated sed rates. 06/03/2024 9:26 AM EST 06/03/2024 9:32 AM EST Generic External Data Provider LAB BLOOD ORDERAB LES Final Result Performing Organization Address [facility] Co de Phone Number [facility] [address] [place] [phone] * Prothrombin Time-INR (06/03/2024 9:26 AM EST) Prothrombin Time 11.1 10.9 - 12.4 SEC [facility] INTERNATIONAL NORM RATIO 1.0 0.9 - 1.1 [facility] Comment:INTERNATIONAL NORMAL IZED RATIO (INR) REFERENCE RANGES Reference RangeFor patients not on anticoagulant therapy: 0.9 - 1.1INR ranges for oral anticoagulanttherapy:For prevention and treatment of venous thrombosis and pulmonary embolism: 2.0 - 3.0For acute myocardial infarction with aspirin therapy: 2.0 - 3.0For acute myocardial infarction without aspirin therapy: 3.0 - 4.0For patients with mechanical prosthetic heart valves: 2.5 - 3.5 06/03/2024 9:26 AM EST 06/03/2024 9:32 AM EST [employer] External Data Provider LAB BLOOD ORDERAB LES Final Result Performing Organization Address [facility] de Phone Number [facility] [address] [place] [phone] * US VENOUS DUPLEX LE LT (06/03/2024 8:53 AM EST) Anatomical Region Laterality Modality Abdomen Ultrasound 06/03/2024 8:53 AM EST Narrative 06/03/2024 10:53 AM EST ? [facility] [place] [facility] ?[address] ?[place] [address] ? Ultrasound Report ? Signed ? Patient: Cook,Ray ?MR#: [id number] ? : 1985 ?Acct:[id number] ? Age/Sex: 38 / M ?ADM Date: 06/03/24 ? Loc: HO.ED ? Attending Dr: ? Ordering Physician: Estephania Floyd ?? Date of Service: 06/03/24 ?? Procedure(s): US venous duplex LE LT ?? Accession Number(s): [id number] ? cc: Estephania Floyd; [facility] ? EXAMINATION: ?? US TRIPLEX LOWER EXTREMITY, LEFT ? CLINICAL INFORMATION: ?? Left calf swelling and pain, IVDA. ? COMPARISON: ?? 04/12/2022. ? TECHNIQUE: ?? Color-flow triplex imaging with spectral analysis and compression ?? Doppler were performed on the left lower extremity. ? FINDINGS: ?? Respiratory variation, normal compression and augmented flow are noted ?? throughout the left lower extremity. The visualized common femoral ?? vein, superficial femoral vein, profunda femoral vein, popliteal vein ?? and midcalf peroneal and posterior tibial venous segments show no ?? evidence of deep venous thrombosis. ? There is no Prince's cyst. Incidental joint effusion noted in the ?? posterior left knee. ?? Mildly prominent reactive appearing lymph node in the left proximal ?? thigh measuring 2.3 x 0.9 x 1.8 cm. ? US/US venous duplex LE LT ?? IMPRESSION: ?? No evidence of deep venous thrombosis involving the left lower ?? extremity. Ancillary findings as detailed. ? Electronically signed by: ??Isaac Hughes MD ??06/03/2024 10:50 AM EST RP ? Dictated By: ?Isaac Hughes MD ? Signed By: ?<Electronically signed by Isaac Hughes MD in OV> ?06/03/24 1050 ? DD/ 0853 ? TD/TT: 06/03/24 1023 ? Senior Application Software Engineer: ? Procedure Note Lena Lang - 06/03/2024 [place] [place] [address] Ultrasound Report Signed Patient: JoeyGuillermo AMR#: [id number] : 1985Acct:[id number] Age/Sex: 38 / MADM Date: 06/03/24 Loc: HO.ED Attending Dr: Ordering Physician: Estephania Floyd Date of Service: 06/03/24 Procedure(s): US venous duplex LE LT Accession Number(s): [id number] cc: Estephania Floyd; [facility] EXAMINATION: US TRIPLEX LOWER EXTREMITY, LEFT CLINICAL INFORMATION: Left calf swelling and pain, IVDA. COMPARISON: 04/12/2022. TECHNIQUE: Color-flow triplex imaging with spectral analysis and compression Doppler were performed on the left lower extremity. FINDINGS: Respiratory variation, normal compression and augmented flow are noted throughout the left lower extremity. The visualized common femoral vein, superficial femoral vein, profunda femoral vein, popliteal vein and midcalf peroneal and posterior tibial venous segments show no evidence of deep venous thrombosis. There is no Prince's cyst. Incidental joint effusion noted in the posterior left knee. Mildly prominent reactive appearing lymph node in the left proximal thigh measuring 2.3 x 0.9 x 1.8 cm. US/US venous duplex LE LT IMPRESSION: No evidence of deep venous thrombosis involving the left lower extremity. Ancillary findings as detailed. Electronically signed by: Isaac Hughes MD 06/03/2024 10:50 AM EST Dictated By: Isaac Hughes MD Signed By: <Electronically signed by Isaac Hughes MD in OV> 06/03/24 1050 DD/ 0853 TD/TT: 06/03/24 1023 Senior Application Software Engineer: [facility] External Provider IMG US PROCEDURES Edited Result - Final * XR Foot 3+ Views Left (06/03/2024 8:53 AM EST) Anatomical Region Laterality Modality Lower Extremities, Foot Left Radiogra phic Imaging 06/03/2024 8:53 AM EST Narrative 06/03/2024 10:23 AM EST ? [facility] ?[address] ?[place] [address] ?XRay Report ? Signed ? Patient: Cook,Ray ?MR#: [id number] ? : 1985 ?Acct:[id number] ? Age/Sex: 38 / M ?ADM Date: 06/03/24 ? Loc: HO.ED ? Attending Dr: ? Ordering Physician: Estephania Floyd ?? Date of Service: 06/03/24 ?? Procedure(s): XR foot LT min 3V ?? Accession Number(s): [id number] ? cc: Estephania Floyd; [facility] ? EXAMINATION: ?? XR FOOT, LEFT ? CLINICAL INFORMATION: ?? pain, concern for osteo ? COMPARISON: ?? 01/23/2024. ? TECHNIQUE: ?? AP, lateral, and oblique views of the left foot. ? FINDINGS: ?? Normal bony mineralization. No fracture, dislocation, or suspicious ?? bone lesion. No malalignment. ?? No focal osteopenia, periostitis, or permeative bone changes to suggest ?? radiographic changes of osteomyelitis. ?? Early degenerative changes in the intertarsal joints and first MTP ?? joint. ? There is mildly prominent soft tissue surrounding the heel. No gross ?? subcutaneous gas, or focal soft tissue defect evident radiographically. ? XR/XR foot LT min 3V ?? IMPRESSION: ?? 1. No acute findings left foot. No radiographic evidence of ?? osteomyelitis. ? Electronically signed by: ??Isaac Hughes MD ??06/03/2024 10:20 AM EST RP ? Dictated By: ?Isaac Hughes MD ? Signed By: ?<Electronically signed by Isaac Hughes MD in OV> ?06/03/24 1020 ? DD/ 0853 ? TD/TT: 06/03/24 0958 ? Senior Application Software Engineer: ? Procedure Note Lena Lang - 06/03/[address] [address] XRay Report Signed Patient: Guillermo Cook AMR#: [id number] : 1985Acct:[id number] Age/Sex: 38 / MADM Date: 06/03/24 Loc: HO.ED Attending Dr: Ordering Physician: Estephania Floyd Date of Service: 06/03/24 Procedure(s): XR foot LT min 3V Accession Number(s): [id number] cc: Estephania Floyd; [facility] EXAMINATION: XR FOOT, LEFT CLINICAL INFORMATION: pain, concern for osteo COMPARISON: 01/23/2024. TECHNIQUE: AP, lateral, and oblique views of the left foot. FINDINGS: Normal bony mineralization. No fracture, dislocation, or suspicious bone lesion. No malalignment. No focal osteopenia, periostitis, or permeative bone changes to suggest radiographic changes of osteomyelitis. Early degenerative changes in the intertarsal joints and first MTP joint. There is mildly prominent soft tissue surrounding the heel. No gross subcutaneous gas, or focal soft tissue defect evident radiographically. XR/XR foot LT min 3V IMPRESSION: 1. No acute findings left foot. No radiographic evidence of osteomyelitis. Electronically signed by: Isaac Hughes MD 06/03/2024 10:20 AM EST Dictated By: Isaac Hughes MD Signed By: <Electronically signed by Isaac Hughes MD in OV> 06/03/24 1020 DD/ 0853 TD/TT: 06/03/24 0958 Senior Application Software Engineer: [facility] External Provider IMG XR PROCEDURES Edited Result - Final * XR Knee 1-2 Views Left (04/30/2024 1:28 AM EST) Anatomical Region Laterality Modality Lower Extremities, Knee [facility] 04/30/2024 1:28 AM EST Narrative 04/30/2024 2:14 AM EST ? [facility] ?[address] ?[place] [address] ?XRay Report ? Signed ? Patient: Cook,Ray ?MR#: [id number] ? : 1985 ?Acct:[id number] ? Age/Sex: 38 / M ?ADM Date: 12/26/24 ? Loc: HO.ED ? Attending Dr: ? Ordering Physician: Rocky Qiu MD ?? Date of Service: 04/30/24 ?? Procedure(s): XR knee LT 2V ?? Accession Number(s): [id number] ? cc: [facility]; Rocky Qiu MD ? EXAMINATION: ?? XR KNEE, LEFT ? CLINICAL INFORMATION: ?? pain ? COMPARISON: ?? None available. ? TECHNIQUE: ?? 2 views of the left knee. ? FINDINGS: ?? No fracture or joint effusion. Alignment is anatomic. Joint spaces are ?? maintained. No abnormal soft tissue calcification. ? XR/XR knee LT 2V ?? IMPRESSION: ?? No significant abnormality identified. ? Electronically signed by: ??Radhames Rubio MD ??04/30/2024 02:11 AM EST RP ? Dictated By: ?Radhames Rubio MD ? Signed By: ?<Electronically signed by Radhames Rubio MD in OV> ?04/30/24 0211 ? DD/ 0128 ? TD/TT: 04/30/24 0142 ? Senior Application Software Engineer: ? Procedure Note Lena Lang - 04/30/[address] [address] XRay Report Signed Patient: Guillermo Cook AMR#: [id number] : 1985Acct:[id number] Age/Sex: 38 / MADM Date: 04/30/24 Loc: HO.ED Attending Dr: Ordering Physician: Rocky Qiu MD Date of Service: 04/30/24 Procedure(s): XR knee LT 2V Accession Number(s): [id number] cc: [facility]; Rocky Qiu MD EXAMINATION: XR KNEE, LEFT CLINICAL INFORMATION: pain COMPARISON: None available. TECHNIQUE: 2 views of the left knee. FINDINGS: No fracture or joint effusion. Alignment is anatomic. Joint spaces are maintained. No abnormal soft tissue calcification. XR/XR knee LT 2V IMPRESSION: No significant abnormality identified. Electronically signed by: Radhames Rubio MD 04/30/2024 02:11 AM EST Dictated By: Radhames Rubio MD Signed By: <Electronically signed by Radhames Rubio MD in OV> 04/30/24210 DD/ TD/TT: 04/30/24 0142 Senior Application Software Engineer: [facility] External Provider IMG XR PROCEDURES Edited Result - Final * HIV 1/2 ANTIGEN/ANTIBODY,FOURTH GENERATION W/RFL (05/29/2021 3:00 PM EST) HIV-1/2 ANTIGEN AND ANTIBODIES, 4TH GENERATION W/ REFLEX NON-REACT [facility]ACT [facility] Comment: HIV-1 antigen and HIV-1/HIV-2 antibodies were not detected. There is no laboratory evidence of HIV infection. ?? PLEASE NOTE: This information has been disclosed to you from records whose confidentiality may be protected by state law. ??If your state requires such protection, then the state law prohibits you from making any further disclosure of the information without the specific written consent of the person to whom it pertains, or as otherwise permitted by law. A general authorization for the release of medical or other information is NOT sufficient for this purpose. ? For additional information please refer to http://education.Bevy/faq/JZN640 (This link is being provided for informational/ educational purposes only.) ? The performance of this assay has not been clinically validated in patients less than 2 years old. ?? 05/29/2021 3:00 PM EST Rhonda Prince OUTDOOR ADVERTISING LEASING AGENT LAB BLOOD ORDERABLES Final Resu lt [facility] [address] * (ABNORMAL) LIPID PANEL, STANDARD (05/29/2021 3:00 PM EST) Chol/HDLC Ratio 3.7 <5.0 (calc) [facility] Cholesterol, Total 144 <200 mg/dL [facility] HDL Cholesterol 39(L) > OR = 40 mg/dL [facility] LDL Cholesterol 75 mg/dL (calc) [facility] Comment: Reference range: <100 ?? Desirable range <100 mg/dL for primary prevention; ?? <70 mg/dL for patients with CHD or diabetic patients ?? with > or = 2 CHD risk factors. ?? LDL-C is now calculated using the Nadir ?? calculation, which is a validated novel method providing ?? better accuracy than the Friedewald equation in the ?? estimation of LDL-C. ?? Sridhar US et al. STANLEY. 2013;310(19): 3386-7142 ?? (http://[employer]/faq/YTO772) Non-HDL Cholesterol 105 <130 mg/dL (calc) [facility] Comment: For patients with diabetes plus 1 major ASCVD risk ?? factor, treating to a non-HDL-C goal of <100 mg/dL ?? (LDL-C of <70 mg/dL) is considered a therapeutic ?? option. Triglycerides 199(H) <150 mg/dL [facility] 05/29/2021 3:00 PM EST us Rhonda Prince OUTDOOR ADVERTISING LEASING AGENT LAB BLOOD ORDERABLES Final Resu lt [facility] [address] from Last 3 Months or Most Recently Relevant to Health Maintenance Insurance [facility] C[place]
--- OUTSIDE RECORDS SUMMARY | 2024-06-05 03:25 | XMS_ITS | Encounter Summary ---
Author Organization [employer] Address [address] [place] [address] [address] [place] [address] Care Team Providers Care Coal Digger Name Role Phone Unavailable Primary Care Provider Unavailabl e Encounter Details Date Type Department Care Team (Late st Contact Info) Description 06/03/2024 Orders Only GENERIC EXTERNAL DATA DEPARTMENT Provider, Generic External Data Social History Tobacco Use Types Packs/Day Years Used Date Smoking Tobacco: Every Day Cigarettes Smokeless Tobacco: Never Sex and Gender Information Value Date Recorded Sex Assigned at Male 03/05/2022 10:14 AM EDT Legal Sex Male 10:14 AM EDT Gender Identity Male 03/05/2022 10:14 AM EDT Sexual Orientation Straight 03/05/2022 10 :14 AM EDT documented as of this encounter Plan of Treatment Pending Results Name Type Priority Associated Diagnoses Date /Time Blood Culture (First) Microbiology Routine 06/03/2024 10:22 AM EST Blood Culture (Second) Microbiology Routine 06/03/2024 10:44 AM EST documented as of this encounter Procedures Procedure Name Priority Date/Time Associated Diagnosis Comments BLOOD CULTURE (SECOND) Routine 10:44 AM EST BLOOD CULTURE (FIRST) Routine 06/03/2024 10:22 AM EST LACTIC ACID Routine 06/03/2024 10:22 AM EST CBC WITH AUTO DIFFERENTIAL Routine 06/03/2024 9:27 AM EST C-REACTIVE PROTEIN Routine 06/03/2024 9: 27 AM EST MAGNESIUM Routine 06/03/2024 9:27 AM EST COMPREHENSIVE METABOLIC PANEL Routine 06/03/2024 9:27 AM EST APTT Routine 06/03/2024 9:26 AM EST SED RATE BY MODIFIED WESTERGREN Routine 06/03/2024 9:26 AM EST PROTHROMBIN TIME-INR Routine 06/03/2024 9:26 AM EST US VENOUS DUPLEX LE LT Routine 8:53 AM EST XR FOOT 3+ VIEWS LEFT Routine 06/03/2024 8:53 AM EST documented in this encounter Results * Lactic Acid (06/03/2024 10:22 AM EST) Lactic Acid 0.9 0.5 - 2.0 mmol/L [facility] 06/03/2024 10:2 2 AM EST 06/03/2024 10:29 AM EST Generic External Data Provider LAB BLOOD ORDERAB LES Final Result Performing Organization Address [facility] Co de Phone Number [facility] [address] [place] [phone] * C-reactive Protein (06/03/2024 9:27 AM EST) C Reactive Protein 0.49 < or = 0.50 mg/dL [facility] 06/03/2024 9:27 AM EST 06/03/2024 9:32 AM EST Generic External Data Provider LAB BLOOD ORDERAB LES Final Result Performing Organization Address [facility] Co de Phone Number [facility] [address] [place] [phone] * Magnesium (06/03/2024 9:27 AM EST) Magnesium 2.1 1.6 - 2.6 mg/dL [facility] 06/03/2024 9:27 AM EST 06/03/2024 9:32 AM EST us Generic External Data Provider LAB BLOOD ORDERAB LES Final Result [facility] [address] [place] [phone] [phone] * (ABNORMAL) Comprehensive Metabolic Panel (06/03/2024 9:27 AM EST) Sodium 141 135 - 145 mmol/L [facility] Potassium 3.9 3.3 - 5.1 mmol/L [facility] Comment:Slight Hemolysis.Int erpret result with caution. Chloride 108 96 - 108 mmol/L [facility] Carbon Dioxide 26 22 - 29 mmol/L [facility] Anion Gap 11(L) 12 - 20 [facility] Urea Nitrogen (BUN) 14 9 - 16 mg/dL [facility] Creatinine, Serum 0.69 0.5 - 1.4 mg/dL [facility] Creatinine Clr Calc Pharmacy 143.7 [facility] Comment:eGFR (calculated fro m the MDRD study equation) and eCrCl(calculated from the Cockcroft-Gault equation) are based ondifferent parameters and may not yield comparable results.If eCrCl result is absurd, please check patient'sheight/weight. Estimated Glomerular Filt Rate >60 [facility] Comment:Chronic Kidney Disea se: Estimated GFR < 60 mL/min/1.01c3Mgnipl Kidney Disease: Estimated GFR < 15 mL/min/1.73m2 Glucose 131(H) 60 - 115 mg/dL [facility] Calcium 9.0 8.4 - 10.2 mg/dL [facility] Bilirubin, Total 0.2 0.0 - 1.0 mg/dL [facility] Aspartate Amino Transferase 43(H) 5 - 37 U/L [facility] Comment:Slight Hemolysis.Int erpret result with caution. Alanine Aminotransferase 35 0 - 40 U/L [facility] Total Protein 6.9 6.5 - 8.0 g/dL [facility] Albumin Level 3.8 3.5 - 5.0 g/dL [facility] Alkaline Phosphatase 85 39 - 117 U/L [facility] 06/03/2024 9:27 AM EST 06/03/2024 9:32 AM EST us Generic External Data Provider LAB BLOOD ORDERAB LES Final Result [facility] [address] [place] [phone] [phone] * (ABNORMAL) CBC auto differential (06/03/2024 9:27 AM EST) White Blood Count 6.5 4.8 - 10.8 X10*3/uL [facility] Red Blood Count 4.71 4.60 - 5.80 X10*6/uL [facility] Hemoglobin 12.6(L) 14.0 - 18.0 g/dl [facility] Hematocrit 39.0(L) 42.0 - 52.0 % [facility] Mean Corpuscular Volume 82.8 80.0 - 98.0 fL [facility] Mean Corpuscular Hemoglobin 26.8(L) 27.0 - 33.0 pg [facility] Mean Corpuscular HGB Conc 32.3 31.0 - 36.0 g/dl [facility] Red Cell Distribution Width 14.5 11.0 - 16.0 % [facility] Platelet Count 254 160 - 400 X10*3/uL [facility] Mean Platelet Volume 9.2(L) 9.4 - 12.4 fL [facility] Neutrophils Percent Auto 59.6 45 - 73 % [facility] Imm Gran Pct Auto 0.3 0.0 - 0.4 % [facility] Lymphocytes Percent Auto 24.3 20 - 40 % [facility] Monocytes Percent Auto 12.2(H) 2 - 11 % [facility] Eosinophils Percent Auto 3.1 0 - 4 % [facility] Basophils Percent Auto 0.5 0 - 2 % [facility] NRBC Pct Auto 0.0 0.0 - 0.2 /100WBC [facility] Neutrophils Absolute Auto 3.8 2.0 - 8.3 x10*3/uL [facility] Imm Gran Abs Auto 0.02 0.00 - 0.03 X10*3/uL [facility] Lymphocytes Absolute Auto 1.6 1.2 - 4.9 X10*3/uL [facility] Monocytes Absolute Auto 0.8 0.1 - 1.2 X10*3/uL [facility] Eosinophils Absolute Auto 0.2 0.0 - 0.4 X10*3/uL [facility] Basophils Absolute Auto 0.0 0.0 - 0.2 X10*3/uL [facility] NRBC Abs Auto 0.000 0.0 - 0.012 X10*3/uL [facility] 06/03/2024 9:27 AM EST 06/03/2024 9:32 AM EST us Generic External Data Provider LAB BLOOD ORDERAB LES Final Result Performing Organization Address [facility] Co de Phone Number [facility] [address] [place] [phone] * Sed Rate by Modified Sisi (06/03/2024 9:26 AM EST) Erythrocyte Sedimentation Rate 7 0 - 15 MM/HR [facility] Comment:Patients with polycy themia and many hemoglobin abnormalitiesmay have depressed sed rates whereas patients with anemiamay have elevated sed rates. 06/03/2024 9:26 AM EST 06/03/2024 9:32 AM EST us Generic External Data Provider LAB BLOOD ORDERAB LES Final Result Performing Organization Address [facility]/ZIP Co de Phone Number [facility] [address] [place] [phone] * Partial Thromboplastin Time, Activated (APTT) (06/03/2024 9:26 AM EST) Partial Thromboplastin Time 33.8 26.0 - 36.8 SEC [facility] Comment:For information rega rding the monitoring of direct thrombininhibitors, please refer to Pharmacy. 06/03/2024 9:26 AM EST 06/03/2024 9:32 AM EST Generic External Data Provider LAB BLOOD ORDERAB LES Final Result Performing Organization Address [facility] Co de Phone Number [facility] [address] [place] [phone] * Prothrombin Time-INR (06/03/2024 9:26 AM EST) Prothrombin Time 11.1 10.9 - 12.4 SEC [facility] INTERNATIONAL NORM RATIO 1.0 0.9 - 1.1 [facility] Comment:INTERNATIONAL NORMAL IZED RATIO [...] 9:26 AM EST 06/03/2024 9:32 AM EST VNG External Data Provider LAB BLOOD ORDERAB LES Final Result Performing Organization Address [facility] Co de Phone Number [facility] [address] [place] [phone] [phone] * US VENOUS DUPLEX LE LT (06/03/2024 8:53 AM EST) Anatomical Region Laterality Modality Abdomen Ultrasound 06/03/2024 8:53 AM EST Narrative 06/03/2024 10:53 AM EST ? [facility] [facility] ?[address] ?[place] [address] ? Ultrasound Report ? Signed ? Patient: Cook,Ray ?MR#: [id number] ? : 1985 ?Acct:[id number] ? Age/Sex: 38 / M ?ADM Date: 06/03/24 ? Loc: HO.ED ? Attending Dr: ? Ordering Physician: Estephania Floyd ?? Date of Service: 06/03/24 ?? Procedure(s): US venous duplex LE LT ?? Accession Number(s): [id number] ? cc: Estephania Floyd; [facility] ? EXAMINATION: ?? US TRIPLEX LOWER [...] DD/ 0853 ? TD/TT: 06/03/24 1023 ? Cloth Neutralizer: ? Procedure Note Lena Lang - 06/03/[address] [place] [address] Ultrasound Report Signed Patient: Guillermo Cook AMR#: [id number] : 1985Acct:[id number] Age/Sex: 38 / MADM Date: 06/03/24 Loc: HO.ED Attending Dr: Ordering Physician: Estephania Floyd Date of Service: 06/03/24 Procedure(s): US venous duplex LE LT Accession Number(s): [id number] cc: Estephania Floyd; [facility] EXAMINATION: US TRIPLEX LOWER EXTREMITY, LEFT [...] 06/03/24 1050 DD/ 0853 TD/TT: 06/03/24 1023 Cloth Neutralizer: [facility] External Provider IMG US PROCEDURES Edited Result - Final * XR Foot 3+ Views Left (06/03/2024 8:53 AM EST) Anatomical Region Laterality Modality Lower Extremities, Foot Left Radiogra phic Imaging 06/03/2024 8:53 AM EST Narrative 06/03/2024 10:23 AM EST ? [facility] ?[address] ?[place] [address] ?XRay Report ? Signed ? Patient: Cook,Ray ?MR#: [id number] ? : 1985 ?Acct:[id number] ? Age/Sex: 38 / M ?ADM Date: 06/03/24 ? Loc: HO.ED ? Attending Dr: ? Ordering Physician: Estephania Floyd ?? Date of Service: 06/03/24 ?? Procedure(s): XR foot LT min 3V ?? Accession Number(s): [id number] ? cc: Estephania Floyd; [facility] ? EXAMINATION: ?? XR FOOT, LEFT [...] Hughes MD ??06/03/2024 10:20 AM EST RP ?? Workstation: [id number] ? Dictated By: ?Isaac Hughes MD ? Signed By: ?<Electronically signed by Isaac Hughes MD in OV> ?06/03/24 1020 ? DD/ 0853 ? TD/TT: 06/03/24 0958 ? Cloth Neutralizer: ? Procedure Note Lena Lang - 06/03/[address] [address] XRay Report Signed Patient: Guillermo Cook AMR#: [id number] : 1985Acct:[id number] Age/Sex: 38 / MADM Date: 06/03/24 Loc: HO.ED Attending Dr: Ordering Physician: Estephania Floyd Date of Service: 06/03/24 Procedure(s): XR foot LT min 3V Accession Number(s): [id number] cc: Estephania Floyd; [facility] EXAMINATION: XR FOOT, LEFT CLINICAL INFORMATION: [...] by: Isaac Hughes MD 06/03/2024 10:20 AM [facility] Dictated By: Isaac Hughes MD Signed By: <Electronically signed by Isaac Hughes MD in OV> 06/03/24 1020 DD/ 0853 TD/TT: 06/03/24 0958 Cloth Neutralizer: [facility] External Provider IMG XR PROCEDURES Edited Result - Final documented in this encounter Visit Diagnoses Not on filedocumented in this encounter
--- NOTE | 2024-06-05 03:31 | PC.NURSE ---
pt medicated according to ad pt partner at bedside
[2024-06-05 03:46] LABS: Alkaline Phosphatase 87 U/L (39-117)
[2024-06-05 03:50] VITALS: BP 135/86; PULSE 83; RESP 20; TEMP 37; O2SAT 99
== END 2024-06-05 03:51 | disposition home or self-care (01) ==
PROVIDERS: Emergency Provider Internal Medicine
DX: M54.50 Low back pain, unspecified (principal); F17.210 Nicotine dependence, cigarettes, uncomplicated; Z79.899 Other long term (current) drug therapy
CPT/HCPCS: 36415; 72020; 80053; 85025; 99283

== ENCOUNTER → 2024-06-05 02:20 | Outpatient (BNV) | payer MEDICAID, SELFPAY | PROVIDERS: Emergency Provider Internal Medicine; Visit Provider Specialist | DX: M51.379 Other intervertebral disc degeneration, lumbosacral region without mention of lumbar back pain or lower extremity pain (principal); Z18.10 Retained metal fragments, unspecified | CPT/HCPCS: 72020 ==

== ENCOUNTER 2024-11-26 18:12 | Emergency (ER) | payer MEDICAID, SELFPAY ==
--- NOTE | ~2024-11-26 | XR_ITS ---
CLINICAL HISTORY: pain 3 view left foot Comparison: X-rays of the left foot from 01/23/2024 Findings: New postprocedural changes from 5th digit amputation. Overlying soft tissue swelling and question distal ulceration of the remaining 5th stump. No definite direct distention into imaged remaining proximal phalanx. Punctate calcifications are nonspecific distal to remaining proximal phalanx. No aggressive appearing osseous erosions by radiographs at this time. Additional soft tissue swelling is nonspecific. Osteoarthritis of the [id number], including partially imaged midfoot. IMPRESSION: 1. Post amputation changes of the 5th digit with soft tissue swelling and likely distal ulceration by radiographs. 2. No aggressive appearing osseous erosions at this time, by radiographs. This document has been electronically signed by: Hakeem Wright MD on 11/26/2024 19:22:25
[2024-11-26 18:37] VITALS: BP 123/89; PULSE 82; RESP 18; TEMP 36.5; O2SAT 94; BMI 30.6
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
[2024-11-26 20:06] LABS: Hematocrit 45.3 % (42.0-52.0); Hemoglobin 15.5 g/dl (14.0-18.0); Imm Gran Abs Auto 0.12 X10*3/uL (0.00-0.03); Imm Gran Pct Auto 0.9 % (0.0-0.4); Lymphocytes Absolute Auto 3.4 X10*3/uL (1.2-4.9); MANUAL DIFF FLAG SCAN; Mean Corpuscular HGB Conc 34.2 g/dl (31.0-36.0); Mean Corpuscular Hemoglobin 27.7 pg (27.0-33.0); Mean Corpuscular Volume 80.9 fL (80.0-98.0); NRBC Abs Auto 0.000 X10*3/uL (0.0-0.012); NRBC Pct Auto 0.0 /100WBC (0.0-0.2); Platelet Count 278 X10*3/uL (160-400); Red Blood Count 5.60 X10*6/uL (4.60-5.80); SCAN SMEAR FLAG 1; White Blood Count 13.2 X10*3/uL (4.8-10.8)
[2024-11-26 20:19] LABS: Alanine Aminotransferase 25 U/L (0-40); Albumin Level 5.4 g/dL (3.5-5.0); Alkaline Phosphatase 132 U/L (39-117); Anion Gap 18 (12-20); Aspartate Amino Transferase 30 U/L (5-37); Blood Urea Nitrogen 59 mg/dL (9-16); Calcium 9.9 mg/dL (8.4-10.2); Carbon Dioxide 26 mmol/L (22-29); Chloride 97 mmol/L (96-108); Creatinine Clr Calc Pharmacy 61.5; Estimated Glomerular Filt Rate 43; Potassium 4.1 mmol/L (3.3-5.1); Sodium 137 mmol/L (135-145); Total Protein 8.8 g/dL (6.5-8.0)
[2024-11-26 20:26] VITALS: BP 123/81; PULSE 69; RESP 16; TEMP 36.6; O2SAT 97
--- OUTSIDE RECORDS SUMMARY | 2024-11-26 20:32 | XMS_ITS | Clinical Summary ---
Author Organization [facility] Address [address] [place] [address] Phone Care Team Providers Care Electrical Laboratory Technician Name Role Phone Physician, No Pcp Primary Care Provider Unavaila ble Allergies Active Allergy Reactions Criticality Noted Date Comments Shellfish Containing Products Unknown 2023 Medications Hospital, Clinic, or Other Facility Administered Medication Ordered Dose Route Frequency Start Date End Date Status naloxone (NARCAN) nasal spray 4 mgIndications:Opiate overdose, accidental or unintentional, initial encounter ([facility] V24, [facility] V28) 4 mg nasl As needed 03/11/2024 Active Active Problems No known active problems Medical History Medical History Date Comments PTSD (post-traumatic stress disorder) Substance abuse ([facility] V24, [facility] V28) Anxiety Depression Social History Tobacco Use Types Packs/Day Years Used Date Smoking Tobacco: Every Day Tobacco Cessation:Ready to Q uit: Not Asked; Counseling Given: Not Answered Sex and Gender Information Value Date Recorded Sex Assigned at Not on file Legal Sex Male 9:23 AM EST Gender Identity Not on file Sexual Orientation Not on file Obstetrics History Last Filed Vital Signs Vital Sign Reading Time Taken Comments Blood Pressure 118/62 03/11/2024 4:00 AM EST Pulse 57 03/11/2024 4:00 AM EST Temperature 37.4 C (99.3 F) 03/11/2024 4:00 AM EST Respiratory Rate 17 03/11/2024 4:00 AM EST Oxygen Saturation 96% 03/11/2024 4:00 AM EST Inhaled Oxygen Concentration - - Weight 74.8 kg (165 lb) 03/10/2024 7:12 PM EST Height 170.2 cm (5' 7 ) 03/10/2024 7:12 PM EST Body Mass Index 25.84 03/10/2024 7:12 PM EST Plan of Treatment Health Maintenance Due Date Last Done Comments Pneumococcal Vaccine: Pediatrics (0 to 5 Years) and At-Risk Patients (6 to 49 Years) (2 of 2 - PCV) 03/01/2012 03/01/2011 Hepatitis C Screening 04/02/2022 Social Influencers of Health Screening 04/02/2022 COVID-19 Vaccine (2 - 2023- season) 2024 03/24/2022 Depression Screening 05/06/2024 Influenza Vaccine (#1) 2025 9, 04/20/2014, 02/19/2013, Additional history exists Cholesterol Screening (Lipid Panel) 05/29/2026 05/29/2021 DTaP,Tdap,and Td Vaccines (11 - Td or Tdap) 09/11/2031 09/10/2021, 08/14/2016, 04/20/2014, Additional history exists IPV Vaccines Completed 10/05/1988, 01/04, 02/27/1985, Additional history exists MMR Vaccines Completed 12/10/1989, 07/08/1986 Hepatitis B Vaccines Completed 03/11/1997, 11/19/1996, 10/02/1996 Hepatitis A Vaccines Completed 02/19/2013, 08/14/19 12 HIV Screening Completed 05/29/2021 HIB Vaccines Aged Out No longer eligi ble based on patient's age to complete this topic HPV Vaccines Aged Out No longer eligi ble based on patient's age to complete this topic Meningococcal ACWY Vaccine Aged Out N o longer eligible based on patient's age to complete this topic Meningococcal B Vaccine Aged Out No l onger eligible based on patient's age to complete this topic RSV Immunization Patients Under 20 months Aged Out No longer eligible based on patient's age to complete this topic Varicella Vaccines Aged Out No longer eligible based on patient's age to complete this topic Insurance MEDICAID - [place] Care Teams Electrical Laboratory Technician Relationship Specialty Start Date End Date Physician, No Pcp PCP - General 03/10/24
[2024-11-26 23:39] VITALS: RESP 16
[2024-11-27 00:07] VITALS: BP 110/73; PULSE 69; RESP 16; TEMP 36.6; O2SAT 98
[2024-11-27 01:42] LABS: Reflex Lactate? Lactic Acid Added
[2024-11-27 01:51] VITALS: PULSE 73; RESP 16; TEMP 36.5; O2SAT 99
[2024-11-27 04:43] VITALS: BP 123/67; PULSE 71; RESP 16; TEMP 36.6; O2SAT 97
[2024-11-27 05:18] VITALS: BP 123/67; PULSE 71; RESP 16; TEMP 36.6; O2SAT 97
== END 2024-11-27 05:20 | disposition home or self-care (01) ==
PROVIDERS: Physician Assistant Medical; Emergency Provider Internal Medicine
DX: L03.032 Cellulitis of left toe (principal); N17.9 Acute kidney failure, unspecified; Z89.422 Acquired absence of other left toe(s); G89.29 Other chronic pain; Z72.0 Tobacco use
CPT/HCPCS: 36415; 73630; 80048; 80076; 83605; 85025; 85652; 86140; 87040; 96361; 96374; 96375; 99284; 99285; J0690; J2270; J2405

== ENCOUNTER → 2024-11-26 18:39 | Outpatient (BNV) | payer MEDICAID, SELFPAY | PROVIDERS: Visit Provider Radiology Neuroradiology | DX: M79.672 Pain in left foot (principal) | CPT/HCPCS: 73630 ==

== ENCOUNTER 2024-12-10 13:18 | Emergency (ER) | payer MEDICAID, SELFPAY ==
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
--- NOTE | ~2024-12-10 | CT_ITS ---
CLINICAL HISTORY: severe tender ?FB osteo plantar calcaneal region CT Left Foot WO Contrast COMPARISON: CR/SR - XR FOOT 3 OR MORE VIEWS LEFT - 12/10/24 14:37 EDT FINDINGS: Status post 5th digit amputation through the 5th proximal phalanx. No acute fracture or malalignment. No cortical disruption or periosteal reaction. Plantar soft tissue swelling and edema most pronounced in the hindfoot and lateral forefoot. No visible soft tissue abscess. No visible foreign body. IMPRESSION: Plantar soft tissue swelling and edema, which could be due to cellulitis or other etiology. No visible foreign body. This document has been electronically signed by: Jhony August MD on 12/10/2024 22:28:17
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
[2024-12-10 13:35] VITALS: BP 138/79; PULSE 89; RESP 16; TEMP 36.9; O2SAT 96; BMI 34.0
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
[2024-12-10] MEDS: Sulfamethox/Trimeth 800/160 TABLET 1 TAB PO (19:26)
[2024-12-10] MEDS: Morphine Sulfate Immed Release 15 MG TABLET PO (19:26)
--- NOTE | 2024-12-10 19:29 | PC.NURSE ---
this RN assumed care of pt @1900, pt A+x3, medicated per JUL, visitor at the bedside
[2024-12-10 19:31] VITALS: BP 115/68; PULSE 62; RESP 18; TEMP 36.7; O2SAT 97
--- NOTE | 2024-12-10 20:20 | PC.NURSE ---
at this time technician preventative medicine reported the pt felt hot to touch post blood draw, temp checked orally to be 98.2, pt stated that he is recently getting over a cold
[2024-12-10 20:22] LABS: Hematocrit 33.8 % (42.0-52.0); Hemoglobin 11.5 g/dl (14.0-18.0); Imm Gran Abs Auto 0.05 X10*3/uL (0.00-0.03); Imm Gran Pct Auto 0.5 % (0.0-0.4); Lymphocytes Absolute Auto 2.0 X10*3/uL (1.2-4.9); MANUAL DIFF FLAG NO; Mean Corpuscular HGB Conc 34.0 g/dl (31.0-36.0); Mean Corpuscular Hemoglobin 27.6 pg (27.0-33.0); Mean Corpuscular Volume 81.3 fL (80.0-98.0); NRBC Abs Auto 0.000 X10*3/uL (0.0-0.012); NRBC Pct Auto 0.0 /100WBC (0.0-0.2); Platelet Count 214 X10*3/uL (160-400); Red Blood Count 4.16 X10*6/uL (4.60-5.80); White Blood Count 10.4 X10*3/uL (4.8-10.8)
[2024-12-10 20:36] LABS: Alanine Aminotransferase 23 U/L (0-40); Albumin Level 4.1 g/dL (3.5-5.0); Alkaline Phosphatase 93 U/L (39-117); Anion Gap 14 (12-20); Aspartate Amino Transferase 37 U/L (5-37); Blood Urea Nitrogen 17 mg/dL (9-16); Calcium 9.1 mg/dL (8.4-10.2); Carbon Dioxide 31 mmol/L (22-29); Chloride 103 mmol/L (96-108); Creatinine Clr Calc Pharmacy 179.8; Estimated Glomerular Filt Rate > 60; Potassium 3.7 mmol/L (3.3-5.1); Sodium 144 mmol/L (135-145); Total Protein 6.7 g/dL (6.5-8.0)
[2024-12-10 23:12] VITALS: BP 109/63; PULSE 72; RESP 18; TEMP 36.7; O2SAT 97
[2024-12-10 23:13] VITALS: BP 109/63; PULSE 72; RESP 18; TEMP 36.7; O2SAT 97
== END 2024-12-10 23:46 | disposition home or self-care (01) ==
PROVIDERS: Registered Nurse Emergency; Emergency Provider Emergency Medicine
DX: S01.81XA Laceration without foreign body of other part of head, initial encounter (principal); Y00.XXXA Assault by blunt object, initial encounter; K04.7 Periapical abscess without sinus; Y93.89 Activity, other specified; Y92.89 Other specified places as the place of occurrence of the external cause; Y99.8 Other external cause status; Z59.00 Homelessness unspecified
CPT/HCPCS: 12011; 36415; 70450; 70486; 72072; 72100; 73630; 73700; 80053; 85025; 85652; 86140; 99284

== ENCOUNTER → 2024-12-10 13:39 | Outpatient (BNV) | payer MEDICAID, SELFPAY | PROVIDERS: Visit Provider Radiology Diagnostic Radiology | DX: K08.419 Partial loss of teeth due to trauma, unspecified class (principal); R22.0 Localized swelling, mass and lump, head; Z18.12 Retained nonmagnetic metal fragments; M47.813 Spondylosis without myelopathy or radiculopathy, cervicothoracic region; Z89.422 Acquired absence of other left toe(s) | CPT/HCPCS: 70450; 70486; 72072; 72100; 73630 ==

== ENCOUNTER 2024-12-11 07:54 | Inpatient (IN) | payer OTHER, SELFPAY ==
--- NOTE | 2024-12-11 | ECG_ITS ---
Test Reason : R/O PROLONGED QT Blood Pressure : */* mmHG Vent. Rate : 61 BPM Atrial Rate : 61 BPM P-R Int : 156 ms QRS Dur : 88 ms QT Int : 438 ms P-R-T Axes : 61 59 65 degrees QTcB Int : 440 ms Normal sinus rhythm Normal ECG When compared with ECG of 03-Jun-2024 09:02, No significant change was found Referred By: Babs Lockwood Electronically Signed By: JAYLA BARRETT
[2024-12-11 08:18] VITALS: BP 137/80; PULSE 74; RESP 16; TEMP 36.6; O2SAT 96; BMI 32.2
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
--- OUTSIDE RECORDS SUMMARY | 2024-12-11 09:03 | XMS_ITS | Encounter Summary ---
Author Organization [employer] Address [address] [place] [address] Care Team Providers Care Svp Marketing Name Role Phone Al Cohen RN Unavailable [phone] Makenzie Patten Unavailable Reason for Visit * Reason Comments Care Coordination C3 -SCAR gomez telephone call outreach Encounter Details Date Type Department Care Team (Latest Contact Info) Description 12/07/2024 Patient Outreach [facility] [address] [place] [address] Makenzie Patten Care Coordination (C3 -SCAR Patten telephone call outreach) Social History Tobacco Use Types Packs/Day Years Used Date Smoking Tobacco: Every Day Cigarettes Smokeless Tobacco: Never Sex and Gender Information Value Date Recorded Sex Assigned at Male 03/05/2022 10:14 AM EDT Legal Sex Male 10:14 AM EDT Gender Identity Male 03/05/2022 10:14 AM EDT Sexual Orientation Straight 03/05/2022 10 :14 AM EDT documented as of this encounter Progress Notes * Makenzie Patten - 12/07/2024 11:31 AM EDT CHW Makenzie Patten placed outbound call to patient to introduce complex care program. Number is disconnected and was unable to LVM. and address not verified. Will attempt again in 5 business days. documented in this encounter Plan of Treatment Upcoming Encounters Date Type Department Care Team ( st Contact Info) Description 03/05/2025 9:30 AM EDT Office Visit [facility] [address] [place], [place] [id number] Seferino, Lulu, OD [address] [place] [address] documented as of this encounter Visit Diagnoses Not on filedocumented in this encounter Care Teams Svp Marketing Relationship Specialty Start Date End Date Al Cohen RN [address] [place] [id number] Registered Nurse Family Medicine 10/27/24 Makenzie Patten 10/27/24 documented as of this encounter
--- OUTSIDE RECORDS SUMMARY | 2024-12-11 09:03 | XMS_ITS | Clinical Summary ---
Author Organization [facility] Address [address] [place] [address] Phone Care Team Providers Care Gas Torch Brazier Name Role Phone Physician, No Pcp Primary Care Provider Unavaila ble Allergies Active Allergy Reactions Criticality Noted Date Comments Shellfish Containing Products Unknown 2023 Medications Hospital, Clinic, or Other Facility Administered Medication Ordered Dose Route Frequency Start Date End Date Status naloxone (NARCAN) nasal spray 4 mgIndications:Opiate overdose, accidental or unintentional, initial encounter ([facility], [facility]28) 4 mg nasl As needed 03/11/2024 Active Active Problems No known active problems Medical History Medical History Date Comments PTSD (post-traumatic stress disorder) Substance abuse ([facility], [facility]28) Anxiety Depression Social History Tobacco Use [...] topic Insurance MEDICAID - [place] Care Teams Gas Torch Brazier Relationship Specialty Start Date End Date Physician, No Pcp PCP - General 03/10/24
[2024-12-11 09:15] LABS: MANUAL DIFF FLAG NO
[2024-12-11 09:17] LABS: Hematocrit 37.4 % (42.0-52.0); Hemoglobin 12.5 g/dl (14.0-18.0); Imm Gran Abs Auto 0.06 X10*3/uL (0.00-0.03); Imm Gran Pct Auto 0.6 % (0.0-0.4); Lymphocytes Absolute Auto 0.7 X10*3/uL (1.2-4.9); Mean Corpuscular HGB Conc 33.4 g/dl (31.0-36.0); Mean Corpuscular Hemoglobin 27.3 pg (27.0-33.0); Mean Corpuscular Volume 81.7 fL (80.0-98.0); NRBC Abs Auto 0.000 X10*3/uL (0.0-0.012); NRBC Pct Auto 0.0 /100WBC (0.0-0.2); Platelet Count 207 X10*3/uL (160-400); Red Blood Count 4.58 X10*6/uL (4.60-5.80); White Blood Count 10.1 X10*3/uL (4.8-10.8)
[2024-12-11 09:35] LABS: Alanine Aminotransferase 24 U/L (0-40); Albumin Level 4.4 g/dL (3.5-5.0); Alkaline Phosphatase 107 U/L (39-117); Anion Gap 13 (12-20); Aspartate Amino Transferase 33 U/L (5-37); Blood Urea Nitrogen 17 mg/dL (9-16); Calcium 9.3 mg/dL (8.4-10.2); Carbon Dioxide 29 mmol/L (22-29); Chloride 104 mmol/L (96-108); Creatinine Clr Calc Pharmacy 162.6; Estimated Glomerular Filt Rate > 60; Magnesium 2.1 mg/dL (1.6-2.6); Potassium 4.1 mmol/L (3.3-5.1); Sodium 142 mmol/L (135-145); Total Protein 7.4 g/dL (6.5-8.0)
[2024-12-11 10:56] VITALS: BP 124/69; PULSE 88; RESP 14; TEMP 37; O2SAT 96
--- NOTE | 2024-12-11 13:03 | PC.NURSE ---
pt speaking w/ care team at this time.
--- NOTE | 2024-12-11 13:26 | PC.NURSE ---
Pt moved to the pod from the ED main via wheelchair. Pt has infection on foot and has been utilizing crutches for comfort, per nurse discharge, pt is assumed to be ambulatory without aids although has not been visualized ambulating without an aid. Pt is here pending inpatient bedsearch
--- NOTE | 2024-12-11 13:33 | PC.NURSE ---
Pt has visitor in the waiting room, visitor is a pt that was recently discharged from pod. Per viscose cellar charge hand, pt is to not have visitor at this time
[2024-12-11 16:11] VITALS: BP 118/67; PULSE 60; RESP 15; TEMP 36.8; O2SAT 97
--- NOTE | 2024-12-11 16:41 | MHC.EDTECH ---
Belongings list not performed by main ED staff, this tech located one bag with patients name in the [place] port. Appears to have clothes and flip flops in it. Patient also has a pair of crutches. All belongings handed to RN for M3.
[2024-12-11 16:45] VITALS: BP 125/94; PULSE 70; RESP 16; TEMP 36.4; O2SAT 99
--- NOTE | 2024-12-11 16:53 | HE.PHANOTE ---
methodone verified 200 mg [facility]
[2024-12-11 17:04] VITALS: BMI 30.2
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
[2024-12-11 21:30] VITALS: BP 133/63; PULSE 65; RESP 16; TEMP 36.6; O2SAT 98
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
[2024-12-12 07:20] VITALS: BP 142/65; RESP 20; TEMP 36.8; O2SAT 99
[2024-12-12] MEDS: methADONE HCl 20 MG/2 ML ORAL.CONC 200 MG PO (08:09)
[2024-12-12] MEDS: Nicotine 21 MG PATCH.TD24 TRANSDERMA (08:50)
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
[2024-12-12 21:25] VITALS: BP 126/70; PULSE 61; RESP 16; TEMP 37.4; O2SAT 97
[2024-12-13 07:15] VITALS: BP 129/81; PULSE 71; RESP 16; TEMP 36.8; O2SAT 97
[2024-12-13] MEDS: methADONE HCl 20 MG/2 ML ORAL.CONC 200 MG PO (07:56)
[2024-12-13 08:09] LABS: Alanine Aminotransferase 24 U/L (0-40); Albumin Level 3.9 g/dL (3.5-5.0); Alkaline Phosphatase 90 U/L (39-117); Anion Gap 11 (12-20); Aspartate Amino Transferase 22 U/L (5-37); Blood Urea Nitrogen 19 mg/dL (9-16); Calcium 9.1 mg/dL (8.4-10.2); Carbon Dioxide 26 mmol/L (22-29); Chloride 109 mmol/L (96-108); Cholesterol 155 mg/dL (<200); Creatinine Clr Calc Pharmacy 153.5; Estimated Glomerular Filt Rate > 60; HDL Cholesterol 36 mg/dL (>40); Potassium 4.5 mmol/L (3.3-5.1); Sodium 141 mmol/L (135-145); Total Protein 6.7 g/dL (6.5-8.0); Triglycerides 156 mg/dL (<150)
[2024-12-13 08:15] LABS: Hemoglobin A1C 117.4743 umol/L; Total Hemoglobin (HGBA1C) 3076.3713 umol/L
[2024-12-13] MEDS: Nicotine 21 MG PATCH.TD24 TRANSDERMA (08:18)
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
[2024-12-14 07:25] VITALS: BP 116/64; PULSE 55; RESP 14; TEMP 37.3; O2SAT 98
[2024-12-14] MEDS: methADONE HCl 20 MG/2 ML ORAL.CONC 200 MG PO (08:00)
[2024-12-14] MEDS: Nicotine 21 MG PATCH.TD24 TRANSDERMA (08:15)
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
[2024-12-14 14:50] VITALS: BP 126/82
[2024-12-14 20:39] VITALS: BP 130/73; PULSE 63; RESP 16; TEMP 36.9; O2SAT 97
--- NOTE | 2024-12-14 21:42 | PC.NURSE ---
Pt requested Tylenol for back pain and Ibuprofen for leg and feet pain per pt request.
[2024-12-15 07:38] VITALS: BP 116/56; PULSE 55; RESP 20; TEMP 36.8; O2SAT 96
[2024-12-15] MEDS: methADONE HCl 20 MG/2 ML ORAL.CONC 200 MG PO (07:59)
[2024-12-15] MEDS: Nicotine 21 MG PATCH.TD24 TRANSDERMA (08:47)
[2024-12-15 08:48] VITALS: BP 116/56
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
[2024-12-15 16:18] LABS: HCV Log PCR <1.18 NOT DETECTED Log IU/mL (NOT DETECTED); HepC Viral Load <15 NOT DETECTED IU/mL (NOT DETECTED)
[2024-12-15 21:20] VITALS: BP 106/58; PULSE 62; RESP 18; TEMP 37.1; O2SAT 99
[2024-12-16 07:38] VITALS: BP 115/53; PULSE 54; RESP 16; TEMP 36.4; O2SAT 96
[2024-12-16] MEDS: methADONE HCl 20 MG/2 ML ORAL.CONC 200 MG PO (07:59)
[2024-12-16] MEDS: Nicotine 21 MG PATCH.TD24 TRANSDERMA (08:01)
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
[2024-12-16 20:00] VITALS: BP 113/66; PULSE 60; RESP 16; TEMP 37.4; O2SAT 96
[2024-12-16 21:43] VITALS: BP 113/66
[2024-12-16 21:44] VITALS: BP 113/66
[2024-12-17 07:40] VITALS: BP 106/55; PULSE 54; RESP 16; TEMP 36.8; O2SAT 99
[2024-12-17] MEDS: methADONE HCl 20 MG/2 ML ORAL.CONC 200 MG PO (08:04)
[2024-12-17 08:40] VITALS: BP 106/55
[2024-12-17] MEDS: Nicotine 21 MG PATCH.TD24 TRANSDERMA (08:40)
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
[2024-12-17 21:40] VITALS: BP 116/68; PULSE 56; RESP 16; TEMP 36.9; O2SAT 99
[2024-12-17 21:52] VITALS: BP 118/61
[2024-12-17 21:53] VITALS: BP 118/67
[2024-12-18 07:20] VITALS: BP 122/74; PULSE 58; RESP 20; TEMP 36.8; O2SAT 98
[2024-12-18] MEDS: methADONE HCl 20 MG/2 ML ORAL.CONC 200 MG PO (07:53)
[2024-12-18 08:32] VITALS: BP 122/74
[2024-12-18] MEDS: Nicotine 21 MG PATCH.TD24 TRANSDERMA (08:32)
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
[2024-12-18 19:32] VITALS: BP 112/66; PULSE 71; RESP 16; TEMP 36.9; O2SAT 98
[2024-12-18 22:03] VITALS: BP 121/71
[2024-12-19 07:48] VITALS: BP 94/47; PULSE 58; RESP 16; TEMP 36.7; O2SAT 96
[2024-12-19] MEDS: methADONE HCl 20 MG/2 ML ORAL.CONC 200 MG PO (07:59)
--- NOTE | 2024-12-19 13:45 | HO.PM.IMPN ---
Subjective Subjective Date of Service: 12/19/24 Interval History: Pt has left foot sole puncture like-like wound that has been treated with Abx, a recent CT showed no osteo, swelling question cellulitis, villareal no fever no drainage. c/o pain Physical Exam Vital Signs: Vital Signs: Last Vital Signs Temp 98.0 F 12/19/24 07:48 Pulse 58 12/19/24 07:48 Resp 16 12/19/24 07:48 BP 94/47 L 12/19/24 07:48 Pulse Ox 96 12/19/24 07:48 O2 Del Method Room Air 12/19/24 07:48 BMI result Body Mass Index 30.2 General: AO X 3, no acute distress Resp: CTA bilateral CVS: S1,S2,RRR GI: +BS, NT, no distention Skin: see above Neuro: motor grossly intact Psych: appropriate affect Objective Data Active Medications Acetaminophen (Acetaminophen 325 Mg Tablet) 650 mg PO Q6H PRN PRN Reason: Headache/Pain, Scale 1-10 Last Admin: 12/14/24 21:40 Dose: 650 mg Documented By: SUDHIR Al Hydroxide/Mg Hydroxide (Magnesium Hydrox/Alum Hydrox 30 Ml Oral.Susp) 30 ml PO Q6H PRN PRN Reason: Heartburn/Nausea Benzocaine (Benzocaine 20 % Oral Gel 9 Gm Tube) 1 appl MUCOUS MEM QID PRN; Protocol PRN Reason: Pain, Mild 1-3,fever,headache Clonidine HCl (Clonidine Hcl 0.1 Mg Tablet) 0.1 mg PO BID [facility]; Protocol Last Admin: 12/19/24 08:36 Dose: 0.1 mg Documented By: PADMA Hydroxyzine HCl (Hydroxyzine Hcl 50 Mg Tablet) 50 mg PO Q6H PRN PRN Reason: mild anxiety Last Admin: 12/18/24 22:03 Dose: 50 mg Documented By: JERED Ibuprofen (Ibuprofen 600 Mg Tablet) 600 mg PO Q6H PRN PRN Reason: leg pain Last Admin: 12/19/24 10:28 Dose: 600 mg Documented By: PADMA Magnesium Hydroxide (Milk Of Magnesia 30 Ml Oral.Susp) 30 ml PO DAILY PRN PRN Reason: Constipation Melatonin (Melatonin 3 Mg Tablet) 9 mg PO BEDTIME [facility] Last Admin: 12/18/24 22:04 Dose: 9 mg Documented By: JERED Melatonin (Melatonin 3 Mg Tablet) 3 mg PO BEDTIME PRN PRN Reason: Insomnia Methadone HCl (Methadone Hcl 20 Mg/2 Ml Oral.Conc) 200 mg PO DAILY@0800 [facility] Last Admin: 12/19/24 07:59 Dose: 200 mg Documented By: MILLA Co-signed By: PADMA Nicotine (Nicotine 21 Mg Patch.Td24) 21 mg TRANSDERMA DAILY [facility] Last Admin: 12/19/24 09:08 Dose: Not Given Documented By: PADMA Non-Admin Reason: Patient Refused Nicotine Polacrilex (Nicotine Polacrilex 2 Mg Gum) 4 mg BUCCAL Q2H PRN PRN Reason: Nicotine Cravings Last Admin: 12/19/24 11:36 Dose: 4 mg Documented By: PADMA Olanzapine (Olanzapine 5 Mg Tablet) 5 mg PO Q4H PRN PRN Reason: agitation Prazosin HCl (Prazosin Hcl 1 Mg Capsule) 1 mg PO BEDTIME [facility]; Protocol Last Admin: 12/18/24 22:03 Dose: 1 mg Documented By: JERED Sertraline HCl (Sertraline Hcl 50 Mg Tablet) 50 mg PO DAILY [facility] Last Admin: 12/19/24 08:36 Dose: 50 mg Documented By: PADMA Labs 12/11/24 09:12 12/13/24 07:45 Assessment and Plan (1) Cellulitis: Status: Acute Plan Wound at sole of left foot as above picture, no evidence of active infection, recent treated with Abx, can finish another 5 days of doxy Quality Stroke Does the patient have a stroke diagnosis?: No VTE Prior VTE?: No VTE Risk Level:: Medical - low VTE Device Contraindication: Treatment Not Tolerated VTE Drug Contraindication: Treatment Not Indicated
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
[2024-12-19 19:30] VITALS: BP 121/57; PULSE 60; RESP 15; TEMP 36.9; O2SAT 95
[2024-12-19 22:04] VITALS: BP 112/72
[2024-12-20] MEDS: methADONE HCl 20 MG/2 ML ORAL.CONC 200 MG PO (07:55)
[2024-12-20 08:00] VITALS: BP 94/55; PULSE 61; RESP 14; TEMP 37.1; O2SAT 99
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
[2024-12-20 19:41] VITALS: BP 115/67; PULSE 68; RESP 16; TEMP 37.9; O2SAT 98
[2024-12-20 21:49] VITALS: BP 116/66; PULSE 71; RESP 16; TEMP 36.9
[2024-12-21 07:30] VITALS: BP 100/59; PULSE 50; RESP 18; TEMP 37.8; O2SAT 97
[2024-12-21] MEDS: methADONE HCl 20 MG/2 ML ORAL.CONC 200 MG PO (08:00)
[2024-12-21 08:49] VITALS: BP 106/59
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
[2024-12-21] MEDS: Naloxone HCl Nasal TAKE HOME 4 MG SPRAY 8 MG NOSTRILALT (11:04)
== END 2024-12-21 14:14 | disposition home or self-care (01) | DRG 751 ==
LOC: HO.ED 13:17 → HO.PADLT16 16:20
PROVIDERS: Nurse Practitioner Family; Admitting Provider Registered Nurse; Emergency Provider Emergency Medicine; Responsible Provider Registered Nurse; Visit Provider Psychiatry & Neurology Psychiatry
DX: F33.2 Major depressive disorder, recurrent severe without psychotic features (principal); R45.851 Suicidal ideations; F41.9 Anxiety disorder, unspecified; F11.20 Opioid dependence, uncomplicated; S01.81XA Laceration without foreign body of other part of head, initial encounter; Y04.8XXA Assault by other bodily force, initial encounter; F17.210 Nicotine dependence, cigarettes, uncomplicated; F14.10 Cocaine abuse, uncomplicated; N40.0 Benign prostatic hyperplasia without lower urinary tract symptoms; Z71.6 Tobacco abuse counseling; F43.10 Post-traumatic stress disorder, unspecified; Z59.02 Unsheltered homelessness; Z79.899 Other long term (current) drug therapy
CPT/HCPCS: 36415; 80048; 80053; 80061; 80076; 80307; 83036; 83735; 85025; 87522; 93005; 99285; S9485

== ENCOUNTER → 2024-12-11 15:55 | Outpatient (BNV) | payer MEDICAID, SELFPAY | PROVIDERS: Admitting Provider Registered Nurse; Emergency Provider Emergency Medicine; Visit Provider Internal Medicine | DX: Z13.6 Encounter for screening for cardiovascular disorders (principal) | CPT/HCPCS: 93010 ==

== ENCOUNTER → 2024-12-11 16:16 | Outpatient (BNV) | payer OTHER, SELFPAY | PROVIDERS: Admitting Provider Registered Nurse; Emergency Provider Emergency Medicine; Visit Provider Psychiatry & Neurology Psychiatry | DX: F33.3 Major depressive disorder, recurrent, severe with psychotic symptoms (principal); F14.10 Cocaine abuse, uncomplicated; F11.20 Opioid dependence, uncomplicated; F43.12 Post-traumatic stress disorder, chronic; S01.81XA Laceration without foreign body of other part of head, initial encounter | CPT/HCPCS: 99231; 99232 ==

== ENCOUNTER → 2024-12-11 16:16 | Outpatient (BNV) | payer MEDICAID, SELFPAY | PROVIDERS: Admitting Provider Registered Nurse; Emergency Provider Emergency Medicine; Visit Provider Nurse Practitioner Family | DX: S01.81XA Laceration without foreign body of other part of head, initial encounter (principal) | CPT/HCPCS: 99223 ==